=== PATIENT | female | born 1960 | race Caucasian/White ===

== ENCOUNTER 2019-01-07 10:29 | Emergency (ER) | payer OTHER ==
[2019-01-07] MEDS ORDERED: DIAZEPAM 5 MG TABLET ONE (10:57)
[2019-01-07] MEDS ORDERED: HYDROCODONE/APAP 5/325 MG TAB ONE (10:57)
--- NOTE | 2019-01-07 11:50 | ER ---
Nurse's Notes [facility] Name: Carla Harris Age: 58 yrs Sex: Female : 1960 Arrival Date: 01/07/2019 Time: 10:31 Bed 5 Private MD: Diagnosis: Vertebral Fracture Presentation: 01/07 10:40 Presenting complaint: Patient states: She fell backwards 2 nights ago and hurt her aj1 back. Reports lower back pain and pain between her shoulder blades that is worse when she changes positions. Denies numbness or tingling. Denies hitting head. Transition of care: patient was not received from another setting of care. Onset of symptoms was January 2019. Risk Assessment: Do you want to hurt yourself or someone else? Patient reports no desire to harm self or others. Initial Sepsis Screen: Does the patient meet any 2 criteria? No. Patient's initial sepsis screen is negative. Does the patient have a suspected source of infection? No. Patient's initial sepsis screen is negative. Care prior to arrival: None. 10:40 Method Of Arrival: Wheelchair aj1 10:40 Acuity: DANK 4 aj1 Triage Assessment: 10:41 General: Appears in no apparent distress. uncomfortable, Behavior is calm, cooperative, aj1 appropriate for age. Pain: Complains of pain in thoracic area and low back area Pain currently is 8 out of 10 on a pain scale. Neuro: Level of Consciousness is awake, alert, obeys commands. Cardiovascular: Patient's skin is warm and dry. Respiratory: Airway is patent Respiratory effort is even, unlabored, Respiratory pattern is regular, symmetrical. Musculoskeletal: Range of motion: intact in all extremities. Historical: - Allergies: 10:41 No Known Allergies; aj1 - Home Meds: 10:44 Albuterol Inhl [Active]; Atrovent Inhl [Active]; ipatropium bromide [Active]; symbicort tw2 [Active]; - PMHx: 10:41 COPD; aj1 - PSHx: 10:41 hip replacement; aj1 10:44 ; tw2 - Immunization history:: Flu vaccine is not up to date. - Social history:: Smoking status: Patient/guardian denies using tobacco. - Ebola Screening: : Patient denies travel to an Ebola-affected area in the 21 days before illness onset. Screenin:44 Abuse screen: Denies threats or abuse. Nutritional screening: No deficits noted. tw2 Tuberculosis screening: No symptoms or risk factors identified. Fall Risk None identified. Assessment: 11:00 General: Appears in no apparent distress. Behavior is calm, cooperative. Pain: Pain hb currently is 9 out of 10 on a pain scale. Neuro: Level of Consciousness is awake, alert, obeys commands, Oriented to person, place, time, situation. Cardiovascular: Capillary refill < 3 seconds Patient's skin is warm and dry. Respiratory: Airway is patent Respiratory effort is even, unlabored, Respiratory pattern is regular, symmetrical. GI: No signs and/or symptoms were reported involving the gastrointestinal system. : No signs and/or symptoms were reported regarding the genitourinary system. EENT: No signs and/or symptoms were reported regarding the EENT system. Derm: Skin is pink, warm \T\ dry. Musculoskeletal: Reports low back pain. 12:00 Reassessment: Patient appears in no apparent distress at this time. Patient and/or hb family updated on plan of care and expected duration. Pain level reassessed. Patient is alert, oriented x 3, equal unlabored respirations, skin warm/dry/pink. Vital Signs: 10:41 BP 130 / 62; Pulse 89; Resp 18; Temp 97.9; Pulse Ox 96% on R/A; Weight 117.93 kg (R); aj1 Height 5 ft. 1 in. (154.94 cm) (R); Pain 8/10; 12:00 BP 126 / 66; Pulse 86; Resp 15; Pulse Ox 100% on R/A; Pain 3/10; hb 10:41 Body Mass Index 49.13 (117.93 kg, 154.94 cm) aj1 ED Course: 10:31 Patient arrived in ED. as 10:41 Triage completed. aj1 10:41 Arm band placed on Patient placed in an exam room. aj1 10:43 Sammy Huerta PA is PHCP. [facility] 10:43 Johny Simms MD is Attending Physician. [facility] 10:43 Bed in low position. Call light in reach. tw2 11:00 Ade Silva, RN is Primary Nurse. 11:28 X-ray completed. Patient tolerated procedure well. Patient moved back from radiology. ml 11:29 Lumbar Spine (3 Views) XRAY In Process Unspecified. EDMS 11:49 Fidel Vivar MD is Referral Physician. [facility] 12:00 No provider procedures requiring assistance completed. Patient did not have IV access hb during this emergency room visit. Administered Medications: 10:59 Drug: [place] 5 mg-325 mg 2 tabs Route: PO; hb 12:00 Follow up: Response: No adverse reaction; Pain is decreased hb 11:00 Drug: Valium 5 mg Route: PO; hb 12:00 Follow up: Response: No adverse reaction; Pain is decreased hb Outcome: 11:50 Discharge ordered by MD. [facility] 12:00 Discharged to home via wheelchair, with family. 12:00 Condition: stable 12:00 Discharge instructions given to patient, Instructed on discharge instructions, follow up and referral plans. medication usage, Demonstrated understanding of instructions, follow-up care, medications, Prescriptions given X 1. 12:09 Patient left the ED. hb Signatures: Dispatcher [employer] EDMS Maryuri Ivan RN RN aj1 Sammy Huerta PA PA jmm Martinez, Amelia as Lopez, Melissa ml Baxter, Heather, RN RN Funmilayo Varghese RN RN tw2
--- NOTE | 2019-01-07 11:51 | EDPHYS ---
Physician Documentation [facility] Name: Carla Harris Age: 58 yrs Sex: Female : 1960 Arrival Date: 01/07/2019 Time: 10:31 Bed 5 Private MD: ED Physician Johny Simms HPI: 01/07 10:55 This 58 yrs old Female presents to ER via Wheelchair with complaints of Back jmm Pain. 10:55 The patient presents with pain that is acute. Onset: The symptoms/episode jmm began/occurred acutely, 2 day(s) ago. The pain does not radiate. Associated signs and symptoms: Pertinent negatives: abdominal pain, chest pain, dysuria, fever, hematuria, incontinence, numbness, urinary retention. The problem was sustained during a fall, while walking. Modifying factors: The patient symptoms are alleviated by nothing, the patient symptoms are aggravated by any movement. Historical: - Allergies: 10:41 No Known Allergies; aj1 - Home Meds: 10:44 Albuterol Inhl [Active]; Atrovent Inhl [Active]; ipatropium bromide [Active]; symbicort tw2 [Active]; - PMHx: 10:41 COPD; aj1 - PSHx: 10:41 hip replacement; aj1 10:44 ; tw2 - Immunization history:: Flu vaccine is not up to date. - Social history:: Smoking status: Patient/guardian denies using tobacco. - Ebola Screening: : Patient denies travel to an Ebola-affected area in the 21 days before illness onset. ROS: 10:55 Constitutional: Negative for fever, chills, and weight loss, Cardiovascular: Negative jmm for chest pain, palpitations, and edema, Respiratory: Negative for shortness of breath, cough, wheezing, and pleuritic chest pain. 10:55 Back: Positive for injury or acute deformity, pain at rest, pain with movement. 10:55 MS/extremity: Negative for pain. 10:55 All other systems are negative. Exam: 10:55 Constitutional: This is a well developed, well nourished patient who is awake, alert, jmm and in no acute distress. Head/Face: atraumatic. Eyes: EOMI, no conjunctival erythema appreciated ENT: Moist Mucus Membranes Neck: Trachea midline, Supple Chest/axilla: Normal chest wall appearance and motion. Cardiovascular: Regular rate and rhythm. No edema appreciated Respiratory: Normal respirations, no respiratory distress appreciated Abdomen/GI: Non distended, soft 10:55 Skin: General appearance color normal MS/ Extremity: Moves all extremities, no obvious deformities appreciated, no edema noted to the lower extremities Neuro: Awake and alert, normal gait Psych: Behavior is normal, Mood is normal, Patient is cooperative and pleasant 10:55 Back: vertebral tenderness, is appreciated at L1 and L2. Vital Signs: 10:41 BP 130 / 62; Pulse 89; Resp 18; Temp 97.9; Pulse Ox 96% on R/A; Weight 117.93 kg (R); aj1 Height 5 ft. 1 in. (154.94 cm) (R); Pain 8/10; 12:00 BP 126 / 66; Pulse 86; Resp 15; Pulse Ox 100% on R/A; Pain 3/10; hb 10:41 Body Mass Index 49.13 (117.93 kg, 154.94 cm) aj1 MDM: 10:47 Patient medically screened. [facility] 11:00 Data reviewed: vital signs, nurses notes. Counseling: I had a detailed discussion with [facility] the patient and/or guardian regarding:. 11:48 Data reviewed: radiologic studies, plain films. Counseling: I had a detailed discussion [facility] with the patient and/or guardian regarding: the historical points, exam findings, and any diagnostic results supporting the discharge/admit diagnosis, radiology results, the need for outpatient follow up, to return to the emergency department if symptoms worsen or persist or if there are any questions or concerns that arise at home. ED course: Decreased pain in the ED. Patient advised to follow up with pcp and spine and otherwise given strict return precautions. No bowel or bladder issues, i do not suspect cauda equina or cord compression. . 10 10:54 Order name: Lumbar Spine (3 Views) XRAY; Complete Time: 12:40 [facility] Administered Medications: 10:59 Drug: [place] 5 mg-325 mg 2 tabs Route: PO; hb 12:00 Follow up: Response: No adverse reaction; Pain is decreased hb 11:00 Drug: Valium 5 mg Route: PO; hb 12:00 Follow up: Response: No adverse reaction; Pain is decreased hb Disposition: 12:39 Co-signature as Attending Physician, Johny Simms MD. rn Disposition: 01/07/19 11:50 Discharged to Home. Impression: Vertebral Fracture. - Condition is Stable. - Discharge Instructions: Vertebral Fracture. - Prescriptions for Tylenol- Codeine #3 300-30 mg Oral Tablet - take 1 tablet by ORAL route every 6 hours As needed; 20 tablet. - Medication Reconciliation Form, Thank You Letter, Antibiotic Education, Prescription Opioid Use form. - Follow up: Fidel Vivar MD; When: 2 - 3 days; Reason: Recheck today's complaints, Continuance of care, Re-evaluation by your physician. Signatures: Dispatcher [employer] EDMaryuri Bashir RN RN aj1 Sammy Huerta PA PA jmm Nieto, Roman, MD MD rn Baxter, Heather, RN RN hb Wise, Tara, RN RN tw2 Corrections: (The following items were deleted from the chart) 12:09 11:50 01/07/2019 11:50 Discharged to Home. Impression: Vertebral Fracture. Condition is hb Stable. Forms are Medication Reconciliation Form, Thank You Letter, Antibiotic Education, Prescription Opioid Use. Follow up: Fidel Vivar; When: 2 - 3 days; Reason: Recheck today's complaints, Continuance of care, Re-evaluation by your physician. beulah
--- NOTE | 2019-01-07 12:05 | RAD REPORT ---
EXAM DESCRIPTION: RAD - Lumbar Spine 3 Views - 01/07/2019 11:32 am CLINICAL HISTORY: Back pain FINDINGS: Mild compression fracture L1 vertebral body No dislocation Osteoporosis Osteoarthritis facet joints lower lumbar spine
[2019-01-07 12:15] VITALS: TEMP 97.9
[2019-01-07 12:16] VITALS: BP 126/66; O2SAT 100
== END 2019-01-07 12:09 | disposition home or self-care (01) ==
LOC: ER 10:29
DX: S32.010A Wedge compression fracture of first lumbar vertebra, initial encounter for closed fracture (principal); J44.9 Chronic obstructive pulmonary disease, unspecified; W18.30XA Fall on same level, unspecified, initial encounter; Y93.89 Activity, other specified; Y92.9 Unspecified place or not applicable
CPT/HCPCS: 72100; 99283

== ENCOUNTER 2021-10-09 17:24 | Inpatient (IN) | payer OTHER ==
[2021-10-09 18:26] LABS: Absolute Lymphocytes (CBC) 1.3 K/uL (0.7-4.9); Hematocrit 42.2 % (36.0-45.0); Lymphocytes % 31.2 % (15.3-44.8); MCV 106.7 fL (80-100); MPV 8.1 fL (7.6-11.3); RBC Red Blood Cell Count 3.96 M/uL (3.86-4.86)
[2021-10-09 18:45] LABS: Blood Morphology Comment NOTED (NOT SEEN); Macrocytosis 1+; Platelet Estimate ADEQ; White Blood Cell Scan OK (OK)
[2021-10-09 18:49] LABS: Magnesium 1.8 mg/dL (1.8-2.4); Potassium 4.3 mmol/L (3.5-5.1); Troponin High Sensitivity 13.2 pg/mL (<58.9)
[2021-10-09] MEDS ORDERED: METHYLPREDNISOLONE 125 MG INJ ONE (18:51)
[2021-10-09] MEDS ORDERED: IPRATROPIUM BROM 0.5MG/2.5ML ONE (18:51)
[2021-10-09] MEDS ORDERED: ALBUTEROL 2.5 MG/3 ML NEB SOL ONE (18:51)
[2021-10-09] MEDS ORDERED: NA CHLORIDE 0.9% 1,000 ML ONE (19:02)
--- NOTE | 2021-10-09 19:29 | RAD REPORT ---
EXAM DESCRIPTION: Gus Single View10/09/2021 7:09 pm CLINICAL HISTORY: Shortness of breath COMPARISON: none FINDINGS: The lungs appear grossly clear. The heart is mildly to moderately enlarged.
--- NOTE | 2021-10-09 19:37 | ER ---
Nurse's Notes [facility] Name: Carla Harris Age: 61 yrs Sex: Female : 1960 Arrival Date: 10/09/2021 Time: 17:32 Bed 5 Private MD: Diagnosis: Persistent atrial fibrillation-new onset;Lymphedema, not elsewhere classified;Venous insufficiency (chronic) (peripheral);COPD/ Chronic obstructive pulmonary disease, unspecified;Morbid (severe) obesity with alveolar hypoventilation Presentation: 10/09 17:49 Chief complaint: Patient states: "Dr. Romero called and said that she has Atrial ss Fibrillation. We were seeing him initially for cellulitis.". Coronavirus screen: Client denies travel out of the [place] in the last 14 days. Ebola Screen: Patient denies exposure to infectious person. Patient denies travel to an Ebola-affected area in the 21 days before illness onset. Initial Sepsis Screen: Does the patient have a suspected source of infection? Yes: Other: possible cellulitis. Initial Sepsis Screen: Does the patient meet any 2 criteria? HR > 90 bpm. Risk Assessment: Do you want to hurt yourself or someone else? Patient reports no desire to harm self or others. Onset of symptoms is unknown. 17:49 Method Of Arrival: Wheelchair ss 17:49 Acuity: DANK 2 ss Historical: - Allergies: 17:57 No Known Allergies; ss - Home Meds: 22:12 Albuterol Inhl [Active]; Atrovent Inhl [Active]; ipatropium bromide [Active]; symbicort lp1 [Active]; - PMHx: 17:57 COPD; "pre diabetic"; ss - PSHx: 17:57 section; hip; ankle; ss - Immunization history:: Client reports receiving the 2nd dose of the Covid vaccine. - Social history:: Smoking status: Patient denies any tobacco usage or history of. Screenin:51 Abuse screen: Denies threats or abuse. Nutritional screening: No deficits noted. kr3 Tuberculosis screening: No symptoms or risk factors identified. Fall Risk IV access (20 points). Gait- Weak (10 pts.). Total Bello Fall Scale indicates Low Risk Score (25-44 pts). Fall prevention measures have been instituted. Side Rails Up X 2 Placed close to Nursing Station Frequent Obs/Assesments occuring Family Present and informed to notify staff if they need to leave bedside As available Patient and Family Educated on Fall Prevention Program and strategies. Assessment: 18:00 General: Appears distressed, uncomfortable, Behavior is cooperative, anxious. Neuro: ss Level of Consciousness is awake, alert. Derm: Skin is intact, is healthy with good turgor, Skin is pink, warm \\T\\ dry. normal. 18:52 General: Appears uncomfortable, ill, Behavior is calm, cooperative, appropriate for kr3 age. Cardiovascular: Reports fatigue, palpitations, shortness of breath, Heart tones S1 S2 Rhythm is atrial fibrillation with rapid ventricular response. Respiratory: Reports shortness of breath Airway is patent Trachea midline Respiratory effort is labored, Respiratory pattern is symmetrical, tachypnea. 19:27 Reassessment: Patient sitting at side of bed, nebulizer completed;. Pain:. Neuro: Level lp1 of Consciousness is awake, alert, obeys commands. Cardiovascular: Edema pitting to left foot and right foot. Derm: Skin is intact, Skin is dry, Skin is normal. 20:53 Reassessment: Assisted patient to bedside commode. lp1 22:00 Reassessment: Patient appears in no apparent distress at this time. Patient and/or lp1 family updated on plan of care and expected duration. Pain level reassessed. Patient aware of pending admission. Vital Signs: 17:49 Weight 131.09 kg; Height 5 ft. 1 in. (154.94 cm); Pain 0/10; ss 17:59 BP 158 / 104; Pulse 139; Resp 24; Temp 97.7(TE); Pulse Ox 87% on R/A; Weight 131.09 kg; ss Height 5 ft. 1 in. (154.94 cm); 18:50 BP 156 / 107; Pulse 106; Resp 22; Pulse Ox 99% on Nebulizer Mask; Pain 0/10; kr3 20:15 BP 156 / 99; Pulse 102; Resp 22; Pulse Ox 96% on R/A; lp1 22:04 BP 165 / 107; Pulse 106; Resp 20; Pulse Ox 95% on R/A; kd3 22:15 BP 133 / 103; Pulse 99; Resp 20; Pulse Ox 94% ; ds4 22:17 BP 151 / 99; Pulse 105; Resp 24; Temp 98.2(O); Pulse Ox 96% on 2 lpm NC; lp1 17:59 Body Mass Index 54.61 (131.09 kg, 154.94 cm) ED Course: 17:32 Patient arrived in ED. rg4 17:50 Kishore Vincent DO is Attending Physician. ms3 17:57 Triage completed. ss 17:57 Arm band placed on right wrist. ss 18:22 Inserted saline lock: 20 gauge in left antecubital area, using aseptic technique. Blood zm collected. 18:24 Basic Metabolic Panel Sent. zm 18:24 CBC with Diff Sent. zm 18:24 Magnesium Sent. zm 18:24 Troponin HS Sent. zm 18:51 Patient has correct armband on for positive identification. Bed in low position. Call kr3 light in reach. Side rails up X 1. Client placed on continuous cardiac and pulse oximetry monitoring. NIBP monitoring applied. 18:53 Rashmi Rollins, RN is Primary Nurse. kr3 19:11 XRAY Chest (1 view) In Process Unspecified. EDMS 19:18 Attending Physician role handed off by Kishore Vincent DO ms3 19:18 Boyd Larose MD is Attending Physician. ms3 19:28 No provider procedures requiring assistance completed. lp1 19:32 Yonatan Tinoco MD is Hospitalizing Provider. nirali 20:53 COVID swab sent to lab. lp1 20:59 Patient admitted, IV remains in place. lp1 Administered Medications: 18:50 Drug: Albuterol - atroVENT (ipratropium) (3:1) (2.5 mg - 0.5 mg) 3 ml Route: Nebulizer; kr3 19:30 Follow up: Response: No adverse reaction lp1 18:51 Drug: SOLU-Medrol (methylPrednisoLONE) 125 mg Route: IVP; Site: left forearm; kr3 19:30 Follow up: Response: No adverse reaction lp1 18:57 Drug: NS 0.9% 1000 ml Route: IV; Rate: 1000 ml; Site: left forearm; kr3 21:00 Drug: Lopressor (metoprolol TARTRATE) 50 mg Route: PO; lp1 22:44 Follow up: Response: No adverse reaction lp1 21:00 Drug: Digoxin 0.5 mg Route: IVP; Site: left antecubital; lp1 22:44 Follow up: Response: No adverse reaction lp1 21:00 Drug: Pepcid (famotidine) 20 mg Route: IVP; Site: left antecubital; lp1 22:44 Follow up: Response: No adverse reaction lp1 21:00 Drug: Lovenox (enoxaparin) 100 mg Route: Sub-Q; Site: left upper arm; lp1 22:44 Follow up: Response: No adverse reaction lp1 21:11 Drug: Magnesium Sulfate 1 grams Route: IVPB; Infused Over: 1 hrs; Site: left lp1 antecubital; 22:00 Follow up: IV Status: Completed infusion; IV Intake: 100ml lp1 Medication: 18:51 VIS not applicable for this client. kr3 Intake: 22:00 IV: 100ml; Total: 100ml. lp1 Outcome: 19:36 Decision to Hospitalize by Provider. [facility] 20:54 Condition: stable lp1 20:54 Instructed on the need for admit. 22:39 Admitted to Med/surg room 212, with oxygen, with chart, Report called to SALUD Levine lp1 22:44 Patient left the ED. lp1 Signatures: Dispatcher [employer] EDMS Boyd Larose MD MD cha Smirch, Shelby, RN RN ss Nieves Giron RN RN lp1 Mahin Griffith ds4 Lay Casas rg4 Kishore Vincent DO DO ms3 Shea Khan, RN RN kd3 Maia Santillan Kelley, RN RN kr3 Corrections: (The following items were deleted from the chart) 17:59 17:49 Acuity: DANK 3 ss ss 18:53 18:50 BP 156 / 107; Pulse 106bpm; Resp 22bpm; Pulse Ox 99% Nebulizer Mask; kr3 kr3
--- NOTE | 2021-10-09 19:37 | EDPHYS ---
Physician Documentation [facility] Name: Carla Harris Age: 61 yrs Sex: Female : 1960 Arrival Date: 10/09/2021 Time: 17:32 Bed 5 Private MD: ED Physician Boyd Larose HPI: 10/09 19:13 This 61 yrs old Female presents to ER via Wheelchair with complaints of A-Fib. ms3 19:13 This 61 yrs old Female presents to ER via Wheelchair with complaints of A-Fib/ SOB. ms3 19:13 The patient has shortness of breath at rest. Onset: The symptoms/episode began/occurred ms3 1 month(s) ago. Duration: The symptoms are chronic. The patient's shortness of breath has no apparent modifying factors. Associated signs and symptoms: Pertinent negatives: chest pain, non-productive cough, diaphoresis, fever, hemoptysis. Severity of symptoms: At their worst the symptoms were moderate in the emergency department the symptoms are unchanged Pain is currently a 0 / 10. 19:13 Patient states she was being seen at Dr Romero's office for leg cellulitis when it was ms3 noted she was in atrial fibrillation with RVR and instructed to go to the ER.. Historical: - Allergies: 17:57 No Known Allergies; ss - Home Meds: 22:12 Albuterol Inhl [Active]; Atrovent Inhl [Active]; ipatropium bromide [Active]; symbicort lp1 [Active]; - PMHx: 17:57 COPD; "pre diabetic"; ss - PSHx: 17:57 section; hip; ankle; ss - Immunization history:: Client reports receiving the 2nd dose of the Covid vaccine. - Social history:: Smoking status: Patient denies any tobacco usage or history of. ROS: 19:13 Constitutional: Negative for fever, and chills. ENT: Negative for injury, pain, and ms3 discharge, Neck: Negative for injury, pain, and swelling, Cardiovascular: Negative for chest pain, and palpitations. 19:13 MS/Extremity: Negative for injury and deformity, Skin: Negative for injury, rash, and discoloration, Neuro: Negative for headache, weakness, numbness, tingling. 19:13 Respiratory: Positive for shortness of breath. 19:13 All other systems are negative. Exam: 18:13 ECG was reviewed by the Attending Physician. ms3 19:13 Constitutional: This is a well developed, well nourished patient who is awake, alert, ms3 and in no acute distress. Head/Face: Normocephalic, atraumatic. Eyes: Pupils equal round and reactive to light, extra-ocular motions intact. Lids and lashes normal. Conjunctiva and sclera are non-icteric and not injected. Periorbital areas with no swelling, redness, or edema. Neck: Trachea midline, no cervical lymphadenopathy. Supple, full range of motion without nuchal rigidity, or vertebral point tenderness. No Meningismus. Chest/axilla: Normal chest wall appearance and motion. Nontender with no deformity. 19:13 MS/ Extremity: Pulses equal, no cyanosis. Neurovascular intact. Full, normal range of motion. Psych: Awake, alert, with orientation to person, place and time. Behavior, mood, and affect are within normal limits. 19:13 Cardiovascular: Rate: tachycardic, Rhythm: irregularly irregular, Pulses: no pulse deficits are appreciated. Vital Signs: 17:49 Weight 131.09 kg; Height 5 ft. 1 in. (154.94 cm); Pain 0/10; ss 17:59 BP 158 / 104; Pulse 139; Resp 24; Temp 97.7(TE); Pulse Ox 87% on R/A; Weight 131.09 kg; ss Height 5 ft. 1 in. (154.94 cm); 18:50 BP 156 / 107; Pulse 106; Resp 22; Pulse Ox 99% on Nebulizer Mask; Pain 0/10; kr3 20:15 BP 156 / 99; Pulse 102; Resp 22; Pulse Ox 96% on R/A; lp1 22:04 BP 165 / 107; Pulse 106; Resp 20; Pulse Ox 95% on R/A; kd3 22:15 BP 133 / 103; Pulse 99; Resp 20; Pulse Ox 94% ; ds4 22:17 BP 151 / 99; Pulse 105; Resp 24; Temp 98.2(O); Pulse Ox 96% on 2 lpm NC; lp1 17:59 Body Mass Index 54.61 (131.09 kg, 154.94 cm) MDM: 18:04 Patient medically screened. ms3 19:13 Differential diagnosis: Chronic Obstructive Pulmonary Disease Myocardial Infarction ms3 pneumonia, pulmonary edema. Transition of care: After a detail discussion of the patient's case, care is transferred to Boyd Larose MD. 19:37 Antibiotic administration: Not indicated. The patient's [place] Deep Vein Thrombosis nirali Score was calculated as follows: Heart Rate >100 BPM (1.5 Pts) Total Score: 0-2 Pts- Low Risk. The patient's pulmonary embolism risk score was calculated as follows: the patients heart rate is greater than 100 beats per minute (1.5 Pts) Total Score: 0-2 points. This patient was found to be at low risk for a pulmonary embolism by using the Well's assessment criteria. Immunization status: Influenza vaccine: Data reviewed: vital signs, nurses notes, lab test result(s), EKG, radiologic studies, doppler, plain films. Data interpreted: architectural designer: rate is 107 beats/min, rhythm is atrial fibrillation, Pulse oximetry: on room air is 99 %. Test interpretation: by ED physician or midlevel provider: ECG, plain radiologic studies. Counseling: I had a detailed discussion with the patient and/or guardian regarding: the historical points, exam findings, and any diagnostic results supporting the discharge/admit diagnosis, lab results, radiology results, the need for further work-up and treatment in the hospital. 10/09 18:03 Order name: Basic Metabolic Panel; Complete Time: 18:51 ms3 10/09 18:03 Order name: CBC with Diff; Complete Time: 18:51 ms3 10/09 18:03 Order name: Magnesium; Complete Time: 18:51 ms3 10/09 18:03 Order name: Troponin HS; Complete Time: 18:51 ms3 10/09 18:46 Order name: CBC Smear Scan; Complete Time: 18:51 EDMS 10/09 19:28 Order name: COVID-19 SARS RT PCR (Document "Date of Onset" if Symptomatic); Complete lp1 Time: 22:14 10/09 18:03 Order name: XRAY Chest (1 view); Complete Time: 19:36 ms3 10/09 19:30 Order name: TSH; Complete Time: 22:14 nirali 10/09 19:30 Order name: BNP; Complete Time: 22:14 nirali 10/09 19:30 Order name: US Extremity Venous W Compression Tr nirali 10/09 19:46 Order name: ABG; Complete Time: 22:14 la1 10/09 20:51 Order name: US; Complete Time: 22:14 EDMS 10/09 18:03 Order name: EKG; Complete Time: 18:04 ms3 10/09 18:03 Order name: Cardiac monitoring; Complete Time: 18:50 ms3 10/09 18:03 Order name: EKG - Nurse/Tech; Complete Time: 18:19 ms3 10/09 18:03 Order name: IV Saline Lock; Complete Time: 18:24 ms3 10/09 18:03 Order name: Labs collected and sent; Complete Time: 18:24 ms3 10/09 18:03 Order name: O2 Per Protocol; Complete Time: 18:50 ms3 10/09 18:03 Order name: O2 Sat Monitoring; Complete Time: 18:50 ms3 10/09 18:53 Order name: EKG; Complete Time: 18:54 ms3 10/09 18:57 Order name: EKG: repeat EKG; Complete Time: 18:57 kr3 10/09 18:57 Order name: EKG - Nurse/Tech; Complete Time: 19:27 kr3 EC:13 Rate is 108 beats/min. Rhythm is regular. QRS [place] is Normal. QRS interval is normal. T ms3 waves are Normal. Clinical impression: Sinus tachycardia with premature supraventricular contractions. Interpreted by me. Reviewed by me. Administered Medications: 18:50 Drug: Albuterol - atroVENT (ipratropium) (3:1) (2.5 mg - 0.5 mg) 3 ml Route: Nebulizer; kr3 19:30 Follow up: Response: No adverse reaction lp1 18:51 Drug: SOLU-Medrol (methylPrednisoLONE) 125 mg Route: IVP; Site: left forearm; kr3 19:30 Follow up: Response: No adverse reaction lp1 18:57 Drug: NS 0.9% 1000 ml Route: IV; Rate: 1000 ml; Site: left forearm; kr3 21:00 Drug: Lopressor (metoprolol TARTRATE) 50 mg Route: PO; lp1 22:44 Follow up: Response: No adverse reaction lp1 21:00 Drug: Digoxin 0.5 mg Route: IVP; Site: left antecubital; lp1 22:44 Follow up: Response: No adverse reaction lp1 21:00 Drug: Pepcid (famotidine) 20 mg Route: IVP; Site: left antecubital; lp1 22:44 Follow up: Response: No adverse reaction lp1 21:00 Drug: Lovenox (enoxaparin) 100 mg Route: Sub-Q; Site: left upper arm; lp1 22:44 Follow up: Response: No adverse reaction lp1 21:11 Drug: Magnesium Sulfate 1 grams Route: IVPB; Infused Over: 1 hrs; Site: left lp1 antecubital; 22:00 Follow up: IV Status: Completed infusion; IV Intake: 100ml lp1 Disposition Summary: 10/09/21 19:36 Hospitalization Ordered Hospitalization Status: Observation nirali Provider: Yonatan Tinoco cha Location: Telemetry/MedSurg (observation) nirali Condition: Fair nirali Problem: new nirali Symptoms: have improved nirali Bed/Room Type: Standard nirali Room Assignment: 212(10/09/21 22:00) cg Diagnosis - Persistent atrial fibrillation - new onset nirali - Lymphedema, not elsewhere classified nirali - Venous insufficiency (chronic) (peripheral) nirlai - COPD/ Chronic obstructive pulmonary disease, unspecified nirali - Morbid (severe) obesity with alveolar hypoventilation nirlai Forms: - Medication Reconciliation Form nirali - SBAR form nirali Signatures: Dispatcher [employer] EDBoyd Caputo MD MD cha Smirch, Shelby RN SALUD ss Nieves Giron RN RN lp1 Umesh Chavez, DIRECTOR DATA ARCHITECTURE-C DIRECTOR DATA ARCHITECTURE-Cla1 Viki Casas RN RN cg Sims, Marcus, DO DO ms3 Rashmi Rollins RN RN kr3 Corrections: (The following items were deleted from the chart) 22:00 19:36 nirali cg
[2021-10-09 20:05] LABS: Arterial Blood Carboxyhemoglob 1.7 % (0-1.5); Blood Gas Oxyhemoglobin 90.2 % (94-97); Blood O2 Saturation 92.8 % (92-98.5)
--- NOTE | 2021-10-09 20:29 | P.HP ---
Certification for Inpatient Patient admitted to: Inpatient With expected LOS: >2 Midnights Patient will require the following post-hospital care: None Practitioner: I am a practitioner with admitting privileges, knowledge of patient current condition, hospital course, and medical plan of care. Services: Services provided to patient in accordance with Admission requirements found in Title 42 Section 412.3 of the Code of Federal Regulations Patient History Date of Service: 10/09/21 Primary Care Provider: Dr. Romero Reason for admission: New onset A. fib, COPD exacerbation History of Present Illness: 61-year-old female with history of hypertension, hyperlipidemia, COPD, DARIO, borderline diabetes presents the emergency department for complaint of A. fib. She reports that she was going to see her primary care doctor Dr. Romero today for complaint of itching and pain in her right lower extremity it was noted that she was in A. fib with rapid ventricular response in his office and she was sent to the ER for further evaluation. Upon arrival to the emergency department patient was indeed in atrial fibrillation with rapid ventricular response she is also hypoxic on room air with a saturation of 87% her initial heart rate was 139. In the ER she received treatment for both COPD exacerbation and A. fib RVR with p.o. Lopressor, Lovenox, IV mag as well as a dose of digoxin IV. Her vital signs have improved currently A. fib rate around 105 still with some expiratory wheezing after receiving Solu-Medrol/albuterol/Atrovent. ABG revealed mild hypercapnia, hypoxia. Patient need to be admitted for new onset A. fib/COPD with exacerbation. Ultrasound bilateral lower extremities pending to rule out DVT, no obvious infection of the right lower extremity patient reports chronic swelling to lower extremities for which she is supposed to take Lasix for, she is noncompliant with most of her home medications due to cost. Allergies No Known Allergi Allergy (Uncoded 12/03/16 13:04) Unknown - Past Medical/Surgical History Diabetic: No -: COPD -: HTN -: HLD -: DARIO -: lower extremity edema -: -: hip/ankle surgery Psychosocial/ Personal History: Pt currently unemployed after a fall last year, lives with family - Family History Mother -: Cancer - Social History Smoking Status: Former smoker Alcohol use: Yes CD- Drugs: No Caffeine use: Yes Place of Residence: Home Review of Systems 10-point ROS is otherwise unremarkable Respiratory: Shortness of Breath, Wheezing Cardiovascular: Palpitations Musculoskeletal: Leg Pain, As per HPI Physical Examination - Physical Exam General: Alert, In no apparent distress, Oriented x3, Obese HEENT: Atraumatic, PERRLA, Mucous membr. moist/pink, EOMI, Sclerae nonicteric Neck: Supple, Without JVD or thyroid abnormality Respiratory: Diminished, Expiratory wheezes Cardiovascular: Normal S1 S2, Irregular heart rate/rhythm (A fib rate 105) Capillary refill: <2 Seconds Gastrointestinal: Normal bowel sounds, No tenderness Musculoskeletal: No contractures, No tenderness Integumentary: Other (Small healing wound to left lower extremity from previous injury. ) Neurological: Normal speech, Normal strength at 5/5 x4 extr, Normal tone, Normal affect, Abnormal gait (pt requires walker) - Studies Laboratory Data (last 24 hrs) 10/09/21 18:18: WBC 4.1 L, Hgb 13.9, Hct 42.2, Plt Count 180 10/09/21 18:18: Sodium 139, Potassium 4.3, BUN 18, Creatinine 0.78, Glucose 110 H, Magnesium 1.8 Assessment and Plan - Plan Assessment: New onset A. fib with rapid ventricular response Acute on chronic hypoxic/hypercapnic respiratory failure secondary to COPD with exacerbation Hypertension Hyperlipidemia Obstructive sleep apnea Chronic lower extremity edema Plan: New onset A. fib with rapid ventricular response: Patient initiated on beta- chani therapy in the emergency department, will continue with Lopressor 50 mg p.o. twice daily, Lovenox 1 mg/kg subcu twice daily, cardiology consulted echocardiogram ordered. Potassium within normal limits magnesium borderline low given 1 g in the emergency department, protocols in place. Patient poorly funded may have difficulty obtaining anticoagulation if recommended by cardiology. Rate much better controlled at this point. We will monitor on telemetry. Acute on chronic hypoxic/hypercapnic respiratory failure secondary to COPD with exacerbation: Hypoxic to 87% on room air, ABG with PCO2 51.2 patient does not use oxygen at home although she uses CPAP at night for obstructive sleep apnea she has been taking half doses of her medications including Spiriva/albuterol/Atrovent as she cannot afford her medications. We will continue with IV steroids, as needed neb treatments given her A. fib RVR, pulmonology consult in place ICS inhaler ordered. Hypertension: Continue with metoprolol, patient reportedly takes lisinopril at home does not know the dose, will restart if blood pressure tolerates and doses confirmed. Hyperlipidemia: Continue atorvastatin Obstructive sleep apnea: CPAP at night Chronic lower extremity edema: Bilateral lower extremity ultrasounds pending to rule out DVT she reports that she is supposed to be on Lasix 20 mg twice a day but is not been taking it she cannot afford her medications she reports swelling improved significantly with elevation will recommend patient elevate her extremities, echocardiogram ordered as well for evaluation of possible CHF/A. fib. Will provide with Lasix while in hospital. DVT PPX: Therapeutic Lovenox Code status: Full Discharge Plan: Home Plan to discharge in: 48 Hours - Advance Directives Does patient have a Living Will: No Does patient have a Durable POA for Healthcare: No - Code Status/Comfort Care Code Status Assessed: Yes (Full code) Critical Care: No Time Spent Managing Pts Care (In Minutes): 70
[2021-10-09] MEDS ORDERED: METOPROLOL TAR 50 MG TAB ONE (20:46)
[2021-10-09] MEDS ORDERED: DIGOXIN 0.25 MG/ML AMP ONE (20:46)
[2021-10-09] MEDS ORDERED: ENOXAPARIN 100 MG/ML SYR SQ ONE (20:47)
[2021-10-09] MEDS ORDERED: MAGNESIUM SULFATE 1 gm IVPB 1 GM/100 ML BAG IV ONE (20:47)
[2021-10-09] MEDS ORDERED: FAMOTIDINE 20 MG/2 ML VIAL IV ONE (20:47)
--- NOTE | 2021-10-09 20:51 | RAD REPORT ---
EXAM DESCRIPTION: USExtrem Venous W Compress Bil10/09/2021 8:36 pm CLINICAL HISTORY: Leg pain COMPARISON: none FINDINGS: The examination is somewhat limited secondary to body habitus and patient discomfort The common femoral, superficial femoral, popliteal veins bilaterally demonstrate phasic waveforms. Ri ght posterior tibial vein patent. Limited evaluation left posterior tibial vein Doppler demonstrates good flow. 3 centimeter left Chávez's cyst. Grayscale, color and spectral analysis performed on all vessels IMPRESSION: No evidence of deep venous thrombosis involving either lower extremity.
[2021-10-09 21:30] LABS: Thyroid Stimulating Hormone 3.1 uIU/mL (0.360-3.740)
[2021-10-09 22:54] VITALS: BMI 57.3
[2021-10-09] MEDS ORDERED: ONDANSETRON 4 MG/2 ML VIAL IV PRN (23:03)
[2021-10-09] MEDS: DULERA 200/5 (MOMETASONE/FORMOTEROL) INHALER IH SCH (23:03)
[2021-10-09] MEDS: ATORVASTATIN 40 MG TAB PO SCH (23:44)
[2021-10-09] MEDS: BENZONATATE 100 MG CAP PO PRN (23:44)
[2021-10-10] MEDS: IPRATROPIUM BROM 0.5MG/2.5ML NEB PRN ×2 (01:35→11:30)
[2021-10-10] MEDS: ALBUTEROL 2.5 MG/3 ML NEB SOL NEB PRN ×3 (01:35→19:25)
[2021-10-10] MEDS: ACETAMINOPHEN 500 MG TAB PO PRN ×3 (01:50→20:47)
[2021-10-10] MEDS ORDERED: METHYLPREDNISOLONE 40 MG INJ IV SCH (02:00)
[2021-10-10 03:55] LABS: Urine Appearance Clear (Clear); Urine Blood Trace-intact (Negative); Urine Color Yellow (Yellow); Urine Glucose 1+ (Negative); Urine Protein 2+ (Negative); Urine Specific Gravity >=1.030 (1.005-1.030); Urine Urobilinogen 0.2 mg/dL (0.2-1.0)
[2021-10-10 03:58] LABS: Urine Bilirubin NEGATIVE (Negative)
[2021-10-10 04:04] LABS: Urine Bacteria <20 /HPF (<20); Urine Mucus 1+ /HPF (NONE SEEN)
[2021-10-10 06:00] LABS: Absolute Lymphocytes (CBC) 0.3 K/uL (0.7-4.9); Hematocrit 40.7 % (36.0-45.0); Lymphocytes % 11.3 % (15.3-44.8); MCV 107.3 fL (80-100); MPV 8.5 fL (7.6-11.3); RBC Red Blood Cell Count 3.79 M/uL (3.86-4.86)
[2021-10-10 06:21] LABS: Albumin 3.7 g/dL (3.4-5.0); Bilirubin Total 0.7 mg/dL (0.2-1.0); Magnesium 1.8 mg/dL (1.8-2.4); Potassium 4.1 mmol/L (3.5-5.1); Protein, Total 7.3 g/dL (6.4-8.2)
[2021-10-10] MEDS ORDERED: MAGNESIUM SULFATE 1 gm IVPB 1 GM/100 ML BAG IV ONE (07:34)
[2021-10-10 08:33] LABS: Anisocytosis 2+; Blood Morphology Comment NOTED (NOT SEEN); Macrocytosis 2+; Platelet Estimate ADEQ; White Blood Cell Scan OK (OK)
[2021-10-10] MEDS: DULERA 200/5 (MOMETASONE/FORMOTEROL) INHALER IH SCH ×2 (09:00→20:39)
[2021-10-10] MEDS: METOPROLOL TAR 50 MG TAB PO SCH ×2 (09:25→20:40)
[2021-10-10] MEDS: FUROSEMIDE 20 MG/ 2ML VIAL IV SCH ×2 (09:26→17:46)
[2021-10-10] MEDS: acetaZOLAMIDE 250 MG TAB PO SCH (09:27)
[2021-10-10] MEDS: predniSONE 20 MG TAB PO SCH ×2 (09:40→20:41)
--- NOTE | 2021-10-10 16:29 | P.PN ---
Subjective Date of Service: 10/10/21 Primary Care Provider: Dr. Romero Chief Complaint: New onset A. fib, COPD exacerbation No new events since admission. She continues to endorse shortness of breath, which is worse with exertion. She states that her symptoms are likely exacerbated by medication noncompliance, she has been unable to afford her inhalers. I have spoken with the family preservation caseworker who will assist with providing coupons to assist her with affording her medications. Review of Systems General: Unremarkable Eyes: Unremarkable ENT: Unremarkable Respiratory: Cough, Shortness of Breath Cardiovascular: Unremarkable Gastrointestinal: Unremarkable Genitourinary: Unremarkable Musculoskeletal: Unremarkable Integumentary: Unremarkable Neurological: Unremarkable Physical Examination - Vital Signs Temperature: 97.8 F Blood Pressure: 156/84 Pulse: 88 Respirations: 20 Pulse Ox (%): 96 - Physical Exam General: Alert, In no apparent distress, Oriented x3 HEENT: Atraumatic, Mucous membr. moist/pink Neck: Supple, Other (unable to assess JVD given habitus) Respiratory: Crackles/rales (bibasilar) Cardiovascular: No gallops, No rubs, No murmurs, Edema (3+ bilateral lower extremity pitting), Irregular heart rate/rhythm Gastrointestinal: Normal bowel sounds, Soft and benign, No tenderness, No rebound, No guarding Musculoskeletal: No clubbing Integumentary: No rashes Neurological: Normal speech, Normal affect - Studies Laboratory Data (last 24 hrs) 10/09/21 18:18: WBC 4.1 L, Hgb 13.9, Hct 42.2, Plt Count 180 10/09/21 18:18: Sodium 139, Potassium 4.3, BUN 18, Creatinine 0.78, Glucose 110 H, Magnesium 1.8 Medications List Reviewed: Yes Assessment And Plan - Plan # Paroxysmal Atrial Fibrillation with Rapid Ventricular Response # Morbid Obesity - BMI 57.3 kg/m2 Differential diagnoses includes, but is not limited to, hyperthyroidism, valvular heart disease, ischemic heart disease, electrolyte derangements, medication noncompliance, increased caffeine/alcohol intake, and obstructive sleep apnea. Her [id number] = 3 (CHF=1, HTN=1, Sex=1), which warrants antico agulation. - Evaluation thus far: - HS troponin = 13.2 -> 12.5 -> 9.0 - CXR = "The lungs appear grossly clear. The heart is mildly to moderately enlarged." - Potassium = 4.1, Magnesium = 1.8 - Target K> 4, Mg >2 - TSH = 3.100 - BNP = 537 (may be falsely low/normal in obesity) - Transthoracic echocardiogram ordered - Counseled on importance of medication adherence - Currently rate-controlled on metoprolol - Continue enoxaparin - given her morbid obesity, it would seem most likely that she would require warfarin as her systemic anticoagulation as an outpatient - Cardiology consulted and spoke with Dr. Julien - recommendations appreciated # Acute on Chronic Hypoxic/Hypercapnic Respiratory Failure secondary to COPD with Exacerbation # Obstructive Sleep Apnea She endorses that her acute COPD exacerbation was likely secondary to medication noncompliance due to inability to purchase her home medications. - Spoke with case management to assist with affording her medications - Pulmonary Medicine consulted and spoke with Dr. Peralta - Recommends acetazolamide and prednisone # Acute Decompensated Congestive Heart Failure (Unknown Ejection Fraction) She presents with symptoms of shortness of breath, dyspnea on exertion, lower extremity edema, and orthopnea. On exam, she demonstrates pulmonary crackles, bilateral lower extremity edema, and jugular venous distension. - Consult Cardiology recommendations appreciated - Ordered transthoracic echocardiogram - Diuresis with IV furosemide for today - Daily weights - Strict I/O - Cardiac diet, 2 L fluid restriction, 2 g Na restriction # Hypertension - Continue metoprolol - Start lisinopril once home dose is confirmed # Hyperlipidemia - Continue atorvastatin Yonatan Tinoco MD Discharge Plan: Home Plan to discharge in: Greater than 2 days - Code Status/Comfort Care Code Status Assessed: Yes Code Status: Full Code
--- NOTE | 2021-10-10 20:19 | CON ---
Date of Consultation: 10/10/2021 Reason For Consultation: Congestive heart failure, atrial fibrillation. History Of Present Illness: This is a 61-year-old female with a history of hypertension, dyslipidemi a, COPD, diabetes, morbid obesity, came to the emergency room with palpitations, found to be in atria l fibrillation with rapid ventricular response and is found to have significant lower extremity edema . The patient claimed having shortness of breath on minimal exertion. No orthopnea. Significant ed farhan, has been going on for a long time. She denies having any chest pain. No nausea, vomiting, or d iarrhea. Past Medical History: COPD, hypertension, dyslipidemia, obesity, obstructive sleep apnea. Past Surgical History: and hip and ankle surgery. Medications: Refer to reconciliation sheet for detailed list. Allergies: NO KNOWN DRUG ALLERGIES. Family History: No premature coronary artery disease or cancer. Social History: Does not smoke at the present time, but she is a former smoker. Does not use any dr ugs. Review of Systems: All systems reviewed and they were negative except for what mentioned in HPI. Physical Examination: Vital Signs: Reviewed. Temperature is 97.8, pulse 88, breathing at 18, blood pressure 156/84, satur ating 96%. General: Pleasant young female, morbidly obese, in no apparent distress. Head and Neck: Pupils are equal, reactive to light. Intact eye movements. No JVD. No cervical lym phadenopathy. Neck: Supple. Thyroid is not enlarged. Lungs: Clear to auscultation bilaterally. No rhonchi, rales, or crackles. No accessory muscle use. Heart: Irregularly irregular. No extra sounds. Abdomen: Soft, nontender. Bowel sounds positive. No organomegaly. No masses or hernia. No rigidi ty or rebound. Extremities: No clubbing or cyanosis. Intact pulses. Skin: No rashes. Neurologic: Alert, awake, oriented x3. No acute focal deficits appreciated. Investigations: Creatinine 0.75. Troponins are negative and hemoglobin is 13.6. TSH 3.1. Chest x- ray, enlarged heart. Assessment And Recommendations: 1.Atrial fibrillation. Her rate is controlled now, but she is still in atrial fibrillation. Recomm end start sotalol 40 mg by mouth twice a day. The patient has multiple risk factors. She will requi re anticoagulation. Hence, recommend Eliquis 5 mg twice a day for stroke prevention and obtain echoc ardiogram. 2.Congestive heart failure exacerbation with significant fluid retention. Increase the Lasix to 40 mg IV q.8 hours. Carefully monitor BUN, creatinine, electrolytes, and obtain echocardiogram. 3.Hypertension. Blood pressure is elevated. Plan: As above. SR/MODL Voice ID: [id number] Report ID: [id number]
[2021-10-10] MEDS: BENZONATATE 100 MG CAP PO PRN (20:40)
[2021-10-10] MEDS: ATORVASTATIN 40 MG TAB PO SCH (20:40)
[2021-10-11 06:56] LABS: Absolute Lymphocytes (CBC) 0.5 K/uL (0.7-4.9); Hematocrit 41.9 % (36.0-45.0); Lymphocytes % 9.1 % (15.3-44.8); MCV 106.9 fL (80-100); MPV 8.7 fL (7.6-11.3); RBC Red Blood Cell Count 3.92 M/uL (3.86-4.86)
[2021-10-11 07:23] LABS: Albumin 3.9 g/dL (3.4-5.0); Bilirubin Total 0.7 mg/dL (0.2-1.0); Magnesium 2.1 mg/dL (1.8-2.4); Potassium 3.9 mmol/L (3.5-5.1); Protein, Total 7.3 g/dL (6.4-8.2)
[2021-10-11] MEDS: ALBUTEROL 2.5 MG/3 ML NEB SOL NEB PRN ×3 (07:40→23:40)
[2021-10-11] MEDS: IPRATROPIUM BROM 0.5MG/2.5ML NEB PRN ×3 (07:40→23:40)
[2021-10-11] MEDS: predniSONE 20 MG TAB PO SCH ×2 (08:59→20:51)
[2021-10-11] MEDS: acetaZOLAMIDE 250 MG TAB PO SCH (08:59)
[2021-10-11] MEDS: DULERA 200/5 (MOMETASONE/FORMOTEROL) INHALER IH SCH ×2 (09:00→20:53)
[2021-10-11] MEDS ORDERED: FUROSEMIDE 20 MG/ 2ML VIAL IV SCH (09:00)
[2021-10-11] MEDS: BENZONATATE 100 MG CAP PO PRN ×2 (09:35→17:05)
[2021-10-11] MEDS: ACETAMINOPHEN 500 MG TAB PO PRN ×2 (09:35→17:05)
[2021-10-11] MEDS: SPIRONOLACTONE 25 MG TABLET PO SCH ×2 (10:10→20:51)
[2021-10-11] MEDS: SOTALOL HCL 80 MG TAB PO SCH ×3 (10:43→18:52)
[2021-10-11] MEDS: APIXABAN 5 MG TABLET PO SCH ×2 (12:25→20:51)
--- NOTE | 2021-10-11 15:31 | P.PN ---
Subjective Date of Service: 10/11/21 Primary Care Provider: Dr. Romero Chief Complaint: New onset A. fib, COPD exacerbation No new events overnight. She appears significantly more comfortable this morning and is on room air. She reports no shortness of breath at rest, but states that it still occurs with exertion. Her primary concern this morning is her bilateral lower extremity edema, which appears to be improving with diuresis. Review of Systems General: Unremarkable Eyes: Unremarkable ENT: Unremarkable Respiratory: Shortness of Breath Cardiovascular: Edema (bilateral lower extremity) Gastrointestinal: Unremarkable Genitourinary: Unremarkable Musculoskeletal: Unremarkable Integumentary: Unremarkable Neurological: Unremarkable Physical Examination - Vital Signs Temperature: 97.6 F Blood Pressure: 149/93 Pulse: 106 Respirations: 18 Pulse Ox (%): 96 - Physical Exam General: Alert, In no apparent distress, Oriented x3 HEENT: Atraumatic, Mucous membr. moist/pink, EOMI Neck: Supple, JVD not distended (difficult to appreciate given habitus) Respiratory: Crackles/rales (bibasilar) Cardiovascular: No gallops, No rubs, No murmurs, Edema (3-4+ bilateral lower extremity pitting), Irregular heart rate/rhythm Gastrointestinal: Normal bowel sounds, Soft and benign, No tenderness, No rebound, No guarding Musculoskeletal: No clubbing Integumentary: Other (bilateral anterior corea venous stasis dermatitis) Neurological: Normal speech, Normal affect - Studies Medications List Reviewed: Yes Assessment And Plan - Plan # Paroxysmal Atrial Fibrillation with Rapid Ventricular Response # Morbid Obesity - BMI 57.3 kg/m2 Her CEC2CO3-DUDm = 3 (CHF=1, HTN=1, Sex=1), which warrants anticoagulation. - Evaluation thus far: - HS troponin = 13.2 -> 12.5 -> 9.0 - CXR = "The lungs appear grossly clear. The heart is mildly to moderately enlarged." - Potassium = 4.1, Magnesium = 1.8 - Target K> 4, Mg >2 - TSH = 3.100 - BNP = 537 (may be falsely low/normal in obesity) - Transthoracic echocardiogram ordered - Counseled on importance of medication adherence - Cardiology consulted and spoke with Dr. Julien - recommendations appreciated - Recommended sotalol, apixaban, which have been ordered # Acute on Chronic Hypoxic/Hypercapnic Respiratory Failure secondary to COPD with Exacerbation # Obstructive Sleep Apnea She endorses that her acute COPD exacerbation was likely secondary to medication noncompliance due to inability to purchase her home medications. - Spoke with case management to assist with affording her medications - Pulmonary Medicine consulted and spoke with Dr. Peralta - recommendations appreciated - Continue bronchodilator treatments - Recommends acetazolamide and prednisone # Acute Decompensated Congestive Heart Failure (Unknown Ejection Fraction) She presents with symptoms of shortness of breath, dyspnea on exertion, lower extremity edema, and orthopnea. On exam, she demonstrates pulmonary crackles, bilateral lower extremity edema, and jugular venous distension. - Consult Cardiology recommendations appreciated - Recommended IV furosemide 40 mg q8h, which has been ordered - Ordered transthoracic echocardiogram - Daily weights - Strict I/O - Cardiac diet, 2 L fluid restriction, 2 g Na restriction # Hypertension - Continue sotalol - Start lisinopril once home dose is confirmed # Hyperlipidemia - Continue atorvastatin Yonatan Tinoco MD Discharge Plan: Home Plan to discharge in: Greater than 2 days - Code Status/Comfort Care Code Status Assessed: Yes Code Status: Full Code
[2021-10-11] MEDS: FUROSEMIDE 40 MG/4 ML VIAL IV SCH (16:17)
--- NOTE | 2021-10-11 20:11 | PN ---
Date of Progress Note: 10/11/2021 Subjective: Seen by bedside. Her lower extremity edema is better. She required BiPAP at night, but she appears to be breathing comfortably today. Review of Systems: No chest pain. She has shortness of breath with minimal exertion, lower extremity edema. No orthopn ea. No nausea, vomiting, diarrhea. No abdominal pain. All other systems reviewed are negative. Physical Examination: Vital Signs: Temperature is 97.6, heart rate 106, breathing at 18, blood pressure 149/90, saturating 96%. General: Pleasant middle-aged female, morbidly obese, no apparent distress. Head and Neck: Pupils are equal, reactive to light. Intact eye movements. No cervical lymphadenopa thy. Neck: Supple. Thyroid is not enlarged. Lungs: Clear to auscultation bilaterally. No rhonchi, rales, or crackles. No accessory muscle use. Heart: Irregularly irregular. No extra sounds. Abdomen: Soft, nontender. Bowel sounds positive. No organomegaly. No masses or hernia. No rigidi ty or rebound. Extremities: 3+ pitting edema with significant movement compared to yesterday. No clubbing or cyanos is. Intact pulses. Skin: No rash. Neurologic: Alert, awake, oriented x3. No acute focal deficits appreciated. Investigations: Her BUN 17, creatinine 0.8, sodium 137. Her hemoglobin is 14, white blood count 5.9 . Assessment And Recommendation: 1.Acute on chronic congestive heart failure exacerbation. Continue aggressive diuresis for 1 more d ay on Lasix 40 mg IV q.8 hours and carefully monitor BUN, creatinine, and electrolytes, and agree wit h spironolactone. 2.Atrial fibrillation. The rate is slightly up still. Increase the sotalol to 80 mg by mouth twice a day. Do an EKG prior the dose adjustment and if the QTc interval still within normal limits, incr ease the sotalol to 80 mg twice a day and continue on Eliquis 5 mg twice a day. SR/MODL Voice ID: [id number] Report ID: [id number]
[2021-10-11] MEDS: ATORVASTATIN 40 MG TAB PO SCH (20:51)
[2021-10-12] MEDS: FUROSEMIDE 40 MG/4 ML VIAL IV SCH ×3 (02:13→16:16)
[2021-10-12 06:18] LABS: Absolute Lymphocytes (CBC) 0.8 K/uL (0.7-4.9); Hematocrit 42.9 % (36.0-45.0); MCV 104.3 fL (80-100); MPV 8.4 fL (7.6-11.3); RBC Red Blood Cell Count 4.12 M/uL (3.86-4.86)
[2021-10-12 06:37] LABS: Bilirubin Total 0.7 mg/dL (0.2-1.0); Magnesium 1.9 mg/dL (1.8-2.4); Potassium 3.7 mmol/L (3.5-5.1); Protein, Total 7.2 g/dL (6.4-8.2)
[2021-10-12] MEDS: SOTALOL HCL 80 MG TAB PO SCH ×2 (06:48→17:12)
[2021-10-12] MEDS: ACETAMINOPHEN 500 MG TAB PO PRN ×2 (06:52→22:00)
[2021-10-12] MEDS: BENZONATATE 100 MG CAP PO PRN ×2 (06:53→22:00)
[2021-10-12] MEDS: IPRATROPIUM BROM 0.5MG/2.5ML NEB PRN ×3 (07:39→20:40)
[2021-10-12] MEDS: ALBUTEROL 2.5 MG/3 ML NEB SOL NEB PRN ×3 (07:39→20:40)
[2021-10-12] MEDS: APIXABAN 5 MG TABLET PO SCH ×2 (08:21→22:00)
[2021-10-12] MEDS: SPIRONOLACTONE 25 MG TABLET PO SCH (08:21)
[2021-10-12] MEDS: predniSONE 20 MG TAB PO SCH ×2 (08:21→22:00)
[2021-10-12] MEDS: acetaZOLAMIDE 250 MG TAB PO SCH (08:22)
[2021-10-12] MEDS: DULERA 200/5 (MOMETASONE/FORMOTEROL) INHALER IH SCH ×2 (08:22→22:00)
--- NOTE | 2021-10-12 15:05 | P.PN ---
Subjective Date of Service: 10/12/21 Primary Care Provider: Dr. Romero Chief Complaint: New onset A. fib, COPD exacerbation No new events overnight. She appears comfortable this morning and is sitting upright eating breakfast. She reports no shortness of breath at rest, but states that it still occurs with exertion. Her bilateral lower extremity edema appears to be improving with diuresis. Review of Systems General: Unremarkable Eyes: Unremarkable ENT: Unremarkable Respiratory: SOB with Excertion Cardiovascular: Unremarkable Gastrointestinal: Unremarkable Genitourinary: Unremarkable Musculoskeletal: Pedal edema Integumentary: Unremarkable Neurological: Unremarkable Physical Examination - Vital Signs Temperature: 96.8 F Blood Pressure: 118/87 Pulse: 56 Respirations: 16 Pulse Ox (%): 93 - Physical Exam General: Alert, In no apparent distress, Oriented x3 HEENT: Atraumatic, Mucous membr. moist/pink, EOMI, Sclerae nonicteric Neck: Supple, JVD not distended (difficult to assess given habitus) Respiratory: Diminished, Crackles/rales (faint bibasilar) Cardiovascular: Regular rate/rhythm, Normal S1 S2, No gallops, No rubs, No murmurs, Edema (2-3+ bilateral lower extremity pitting) Gastrointestinal: Normal bowel sounds, No tenderness, No rebound, No guarding Musculoskeletal: No clubbing Integumentary: No rashes Neurological: Normal speech, Normal affect - Studies Medications List Reviewed: Yes Assessment And Plan - Plan # Paroxysmal Atrial Fibrillation with Rapid Ventricular Response, rate- controlled now # Morbid Obesity - BMI 57.3 kg/m2 Her [id number] = 3 (CHF=1, HTN=1, Sex=1), which warrants anticoagulation. - Evaluation thus far: - HS troponin = 13.2 -> 12.5 -> 9.0 - CXR = "The lungs appear grossly clear. The heart is mildly to moderately enlarged." - Potassium = 4.1, Magnesium = 1.8 - Target K> 4, Mg >2 - TSH = 3.100 - BNP = 537 (may be falsely low/normal in obesity) - Transthoracic echocardiogram ordered - Counseled on importance of medication adherence - Cardiology consulted and spoke with Dr. Julien - recommendations appreciated - Recommended sotalol, apixaban, which have been ordered - Net I/O not charted # Acute on Chronic Hypoxic/Hypercapnic Respiratory Failure secondary to COPD with Exacerbation, improving # Obstructive Sleep Apnea She endorses that her acute COPD exacerbation was likely secondary to medication noncompliance due to inability to purchase her home medications. - Spoke with case management to assist with affording her medications - Pulmonary Medicine consulted and spoke with Dr. Peralta - recommendations appreciated - Continue bronchodilator treatments - Recommends acetazolamide and prednisone # Acute Decompensated Congestive Heart Failure (Unknown Ejection Fraction), improving - Consult Cardiology recommendations appreciated - Recommended IV furosemide 40 mg q8h, which has been ordered - Ordered transthoracic echocardiogram - Daily weights - Strict I/O - Cardiac diet, 2 L fluid restriction, 2 g Na restriction # Hypertension - Continue sotalol - Start lisinopril once home dose is confirmed # Hyperlipidemia - Continue atorvastatin Yonatan Tinoco MD
--- NOTE | 2021-10-12 20:17 | PN ---
Date of Progress Note: 10/12/2021 Subjective: Seen by bedside. She is looking much better. Breathing comfortably. Does not have any major shortness of breath on exertion. Lower extremity edema is much better. No nausea, vomiting, diarrhea. No abdominal pain. All other systems reviewed and they are negative. Physical Examination: Vital Signs: Reviewed. Head and Neck: Pupils are equal, reactive to light. Intact eye movements. No JVD. No cervical lym phadenopathy. Neck is supple. Thyroid is not enlarged. Lungs: Clear to auscultation bilaterally. No rhonchi, wheezing, or crackles. No accessory muscle u se. Heart: Irregularly irregular. No extra sounds. Abdomen: Soft, nontender. Bowel sounds positive. No organomegaly. No masses or hernia. No rigidi ty or rebound. Extremities: No clubbing or cyanosis. Intact pulses. Skin: No rash. Neurologic: Alert, awake, oriented x3. No acute focal deficits appreciated. Lymph Nodes: No cervical or axillary lymphadenopathy. Investigations: Creatinine 0.84, BUN 17, and hemoglobin is 14.6. Assessment And Recommendations: 1.Acute on chronic congestive heart failure exacerbation. Continue IV Lasix for 1 more day. She is getting euvolemic slowly. Continue spironolactone, low-salt diet, and daily body weight. 2.Atrial fibrillation. Still in atrial fibrillation. Continue sotalol and apixaban. SR/MODL Voice ID: [id number] Report ID: [id number]
[2021-10-12] MEDS: ATORVASTATIN 40 MG TAB PO SCH (22:00)
[2021-10-13] MEDS: FUROSEMIDE 40 MG/4 ML VIAL IV SCH ×2 (02:02→09:23)
[2021-10-13] MEDS: SPIRONOLACTONE 25 MG TABLET PO SCH ×3 (02:17→20:43)
[2021-10-13 03:53] LABS: Hematocrit 47.2 % (36.0-45.0); MCV 104.8 fL (80-100); MPV 8.6 fL (7.6-11.3)
[2021-10-13 04:14] LABS: Bilirubin Total 0.7 mg/dL (0.2-1.0); Potassium 3.6 mmol/L (3.5-5.1); Protein, Total 7.7 g/dL (6.4-8.2)
[2021-10-13] MEDS: SOTALOL HCL 80 MG TAB PO SCH ×2 (06:20→18:11)
--- NOTE | 2021-10-13 07:22 | ECHO ---
HEIGHT: 5 ft 1 in WEIGHT: 303 lb 8 oz DATE OF STUDY: 10/10/[address]: Umesh Chavez NP 2-DIMENSIONAL: YES M.MODE: YES DOPPLER: YES COLOR FLOW: YES TDS: YES PORTABLE: YES DEFINITY: NO BUBBLE STUDY: NO DIAGNOSIS: NEW ATRIAL ENLARGEMENT CARDIAC HISTORY: CATHERIZATION: SURGERY: PROSTHETIC VALVE: PACEMAKER: MEASUREMENTS (cm) DIASTOLIC (NORMALS) SYSTOLIC (NORMALS) IVSd 1.4 (0.6-1.2) LA Diam 4.4 (1.9-4.0) LVEF 64% LVIDd 3.9 (3.5-5.7) LVIDs 2.6 (2.0-3.5) %FS 34% LVPWd 1.4 (0.6-1.2) Ao Diam 2.7 (2.0-3.7) 2 DIMENSIONAL ASSESSMENT: RIGHT ATRIUM: NORMAL LEFT ATRIUM: ENLARGED RIGHT VENTRICLE: NORMAL LEFT VENTRICLE: NORMAL TRICUSPID VALVE: NORMAL MITRAL VALVE: NORMAL PULMONIC VALVE: NORMAL AORTIC VALVE: NORMAL PERICARDIAL EFFUSION: TRACE AORTIC ROOT: NORMAL LEFT VENTRICULAR WALL MOTION: UNABLE TO EVALUATE DUE TO POOR WINDOWS. DOPPLER/COLOR FLOW: MILD TRICUSPID REGURGITATION. COMMENTS: POOR WINDOWS, LEFT VENTRICULAR EJECTION FRACTION APPEARS NORMAL. LEFT ATRIAL ENLARGEMENT. TECHNOLOGIST: Charmaine DUENAS
[2021-10-13] MEDS: ALBUTEROL 2.5 MG/3 ML NEB SOL NEB PRN ×2 (09:00→20:25)
[2021-10-13] MEDS: IPRATROPIUM BROM 0.5MG/2.5ML NEB PRN ×2 (09:00→20:25)
[2021-10-13] MEDS: predniSONE 20 MG TAB PO SCH ×2 (09:22→20:43)
[2021-10-13] MEDS: acetaZOLAMIDE 250 MG TAB PO SCH (09:23)
[2021-10-13] MEDS: APIXABAN 5 MG TABLET PO SCH ×2 (09:23→20:42)
[2021-10-13] MEDS: DULERA 200/5 (MOMETASONE/FORMOTEROL) INHALER IH SCH ×2 (09:24→20:42)
[2021-10-13] MEDS: ACETAMINOPHEN 500 MG TAB PO PRN ×2 (09:32→20:47)
[2021-10-13] MEDS: BENZONATATE 100 MG CAP PO PRN ×2 (09:32→20:47)
--- NOTE | 2021-10-13 13:59 | EKG ---
Test Date: 2021-10-09 Test Time: 19:24:15 Senior Tax Specialist: ELAYNE MEASUREMENT RESULTS: Intervals: Rate: 113 [place]: QRSD: 74 QT: 298 QTc: 408 [place]: P: -90 IL: QRS: 51 T: 54 INTERPRETIVE STATEMENTS: Atrial flutter with variable AV block Low voltage QRS Cannot rule out Anterior infarct, age undetermined Abnormal ECG Compared to ECG 10/09/2021 18:13:41 Sinus tachycardia no longer present Atrial premature complex(es) no longer present First degree AV block no longer present Right-axis deviation no longer present Myocardial infarct finding still present Electronically Signed On 10-13-21 13:51:51 CDT by Vladimir Julien
--- NOTE | 2021-10-13 14:00 | EKG ---
Test Date: 2021-10-09 Test Time: 18:13:41 Client Experience Consultant: DOMINGA MEASUREMENT RESULTS: Intervals: Rate: 108 SC: 262 QRSD: 54 QT: 352 QTc: 471 [place]: P: SC: 262 QRS: 107 T: 100 INTERPRETIVE STATEMENTS: Sinus tachycardia with 1st degree AV block with premature supraventricular complexes Rightward axis Low voltage QRS Cannot rule out Anteroseptal infarct, age undetermined Abnormal ECG Compared to ECG 09/14/2014 14:32:38 Atrial premature complex(es) now present First degree AV block now present Right-axis deviation now present Low QRS voltage now present Myocardial infarct finding now present Sinus rhythm no longer present Electronically Signed On 10-13-21 13:52:06 CDT by Vladimir Julien
[2021-10-13] MEDS: FUROSEMIDE 40 MG TABLET PO SCH (18:10)
--- NOTE | 2021-10-13 18:57 | PN ---
Date of Progress Note: 10/13/2021 Subjective: Seen by bedside. Doing clinically better. Still has shortness of breath on exertion an d residual lower extremity edema. Review of Systems: No chest pain, shortness of breath, orthopnea, cough, nausea, vomiting, diarrhea. All other systems reviewed and are negative. Physical Examination: Vital Signs: Reviewed. Head and Neck: Pupils are equal, reactive to light. Intact eye movements. No JVD. No cervical lym phadenopathy. Neck is supple. Thyroid is not enlarged. Lungs: Clear to auscultation bilaterally. No rhonchi, wheezing, or crackles. No accessory muscle u se. Heart: Irregularly irregular. No extra sounds. Abdomen: Soft, nontender. Bowel sounds positive. No organomegaly. No masses or hernia. No rigidi ty or rebound. Extremities: No clubbing or cyanosis. Intact pulses. Skin: No rash. Neurologic: Alert, awake. No acute focal deficits appreciated. Lymph Nodes: No cervical or axillary lymphadenopathy. Investigations: Labs were reviewed. Assessment And Recommendations: 1.Acute on chronic congestive heart failure exacerbation. She is definitely improving. Continue cu rrent diuretics. However, we will change to oral Lasix 40 mg by mouth twice a day. Please obtain ec hocardiogram to further assess. 2.Atrial fibrillation. The sotalol was increased to 80 mg twice a day and she still has a fast hear t rate. We can use metoprolol 5 mg IV every 2-3 hours as needed for the rate control and if her ejection fraction is normal, then we will start on calcium channel chani with Cardizem for a better heart rate control. SR/MODL Voice ID: [id number] Report ID: [id number]
[2021-10-13] MEDS: ATORVASTATIN 40 MG TAB PO SCH (20:43)
[2021-10-14] MEDS: SOTALOL HCL 80 MG TAB PO SCH (05:13)
[2021-10-14 05:51] LABS: Hematocrit 46.6 % (36.0-45.0); Lymphocytes % 14.9 % (15.3-44.8); MCV 106.5 fL (80-100); MPV 8.5 fL (7.6-11.3); RBC Red Blood Cell Count 4.37 M/uL (3.86-4.86)
[2021-10-14 06:11] LABS: Potassium 3.7 mmol/L (3.5-5.1)
[2021-10-14 06:51] LABS: Blood Morphology Comment NOTED (NOT SEEN); Macrocytosis 1+; Platelet Estimate ADEQ; White Blood Cell Scan OK (OK)
[2021-10-14 08:20] VITALS: BP 124/71; TEMP 97.1
--- NOTE | 2021-10-14 08:21 | RAD REPORT ---
EXAM DESCRIPTION: Gus Single View10/14/2021 5:25 am CLINICAL HISTORY: Cough COMPARISON: October 09, 2021 FINDINGS: The upper lobe vessels are prominent indicative of pulmonary venous hypertension. The lungs appear clear of acute infiltrate. The heart is mildly to moderately enlarged
[2021-10-14] MEDS ORDERED: POTASSIUM CL SA 10 MEQ TAB PO ONE (09:00)
[2021-10-14] MEDS: SPIRONOLACTONE 25 MG TABLET PO SCH (09:06)
[2021-10-14] MEDS: ACETAMINOPHEN 500 MG TAB PO PRN (09:06)
[2021-10-14] MEDS: FUROSEMIDE 40 MG TABLET PO SCH (09:06)
[2021-10-14] MEDS: acetaZOLAMIDE 250 MG TAB PO SCH (09:07)
[2021-10-14] MEDS: DULERA 200/5 (MOMETASONE/FORMOTEROL) INHALER IH SCH (09:07)
[2021-10-14] MEDS: APIXABAN 5 MG TABLET PO SCH (09:07)
[2021-10-14] MEDS: predniSONE 20 MG TAB PO SCH (09:07)
[2021-10-14] MEDS: BENZONATATE 100 MG CAP PO PRN (09:07)
[2021-10-14] MEDS: IPRATROPIUM BROM 0.5MG/2.5ML NEB PRN (10:13)
[2021-10-14 10:54] VITALS: O2SAT 93
--- NOTE | 2021-10-16 10:53 | P.PN ---
Date of Service: 10/13/21 Subjective Patient respiratory status has been stable. Clinically she is feeling much better. Spoke with patient about nutritional habits going forward. Heart rate is well controlled. Anticipate discharge home later today. Physical Examination - Vital Signs Reviewed - Physical Exam General: Alert, In no apparent distress, Oriented x3 HEENT: Atraumatic, Mucous membr. moist/pink, EOMI, Sclerae nonicteric Neck: Supple, JVD not distended (difficult to assess given habitus) Respiratory: Diminished, Crackles/rales (faint bibasilar) Cardiovascular: Regular rate/rhythm, Normal S1 S2, No gallops, No rubs, No murmurs, Edema (2-3+ bilateral lower extremity pitting) Gastrointestinal: Normal bowel sounds, No tenderness, No rebound, No guarding Musculoskeletal: No clubbing Integumentary: No rashes Neurological: Normal speech, Normal affect Assessment And Plan -Assessment # Paroxysmal Atrial Fibrillation with Rapid Ventricular Response, rate-contr olled now # Morbid Obesity - BMI 57.3 kg/m2 # Acute on Chronic Hypoxic/Hypercapnic Respiratory Failure secondary to COPD with Exacerbation, improving # Obstructive Sleep Apnea # Acute Decompensated Congestive Heart Failure (Unknown Ejection Fraction), improving # Hypertension # Hyperlipidemia -Plan 1. Continue medication for rate control; continue anticoagulation 2. Continue with BiPAP at night and acetazolamide 3. Continue with diuresing 4. Strict blood pressure and blood sugar control 5. GI DVT prophylaxis
--- NOTE | 2021-10-16 10:55 | P.DS ---
Discharge Date: 10/14/21 Primary Care Provider: Dr. Romero Disposition: ROUTINE DISCHARGE Discharge Condition: GOOD Reason for Admission: New onset A. fib, COPD exacerbation Brief History of Present Illness: 61-year-old female with history of hypertension, hyperlipidemia, COPD, DARIO, borderline diabetes presents the emergency department for complaint of A. fib. She reports that she was going to see her primary care doctor Dr. Romero today for complaint of itching and pain in her right lower extremity it was noted that she was in A. fib with rapid ventricular response in his office and she was sent to the ER for further evaluation. Upon arrival to the emergency department patient was indeed in atrial fibrillation with rapid ventricular response she is also hypoxic on room air with a saturation of 87% her initial heart rate was 139. In the ER she received treatment for both COPD exacerbation and A. fib RVR with p.o. Lopressor, Lovenox, IV mag as well as a dose of digoxin IV. Her vital signs have improved currently A. fib rate around 105 still with some expiratory wheezing after receiving Solu-Medrol/albuterol/Atrovent. ABG revealed mild hypercapnia, hypoxia. Patient need to be admitted for new onset A. fib/COPD with exacerbation. Ultrasound bilateral lower extremities pending to rule out DVT, no obvious infection of the right lower extremity patient reports chronic swelling to lower extremities for which she is supposed to take Lasix for, she is noncompliant with most of her home medications due to cost. Hospital Course: Patient is clinically improved. Patient is doing much better. Respiratory status has improved. Continue with medication for rate control and anticoagulation. She will need to continue following up with pulmonary and cardiology as an outpatient. She will have obesity hypoventilation syndrome along with diastolic heart failure. She will need close follow-up going forward for her COPD as well. At this time, patient stable for discharge home. Vital Signs/Physical Exam: Temp Pulse Resp BP Pulse Ox 97.1 F 61 16 124/71 91 10/14/21 08:00 10/14/21 09:06 10/14/21 08:00 10/14/21 09:06 10/14/21 08:00 General: Alert, In no apparent distress, Oriented x3 Laboratory Data at Discharge: WBC 6.4 K/uL (4.3-10.9) D 10/14/21 05:35 Hgb 15.6 g/dL (12.0-15.0) H 10/14/21 05:35 Hct 46.6 % (36.0-45.0) H 10/14/21 05:35 Plt Count 254 K/uL (152-406) 10/14/21 05:35 Sodium 138 mmol/L (136-145) 10/14/21 05:35 Potassium 3.7 mmol/L (3.5-5.1) 10/14/21 05:35 BUN 34 mg/dL (7-18) H 10/14/21 05:35 Creatinine 0.98 mg/dL (0.55-1.3) 10/14/21 05:35 Glucose 194 mg/dL (74-106) H 10/14/21 05:35 Magnesium 1.9 mg/dL (1.8-2.4) 10/12/21 05:49 Total Bilirubin 0.7 mg/dL (0.2-1.0) 10/13/21 03:15 AST 95 U/L (15-37) H 10/13/21 03:15 ALT 115 U/L (12-78) H 10/13/21 03:15 Alkaline Phosphatase 56 U/L (45-117) 10/13/21 03:15 Triglycerides 91 mg/dL (<150) 10/10/21 05:20 Cholesterol 207 mg/dL (<200) H 10/10/21 05:20 HDL Cholesterol 133 mg/dL (40-60) H 10/10/21 05:20 Cholesterol/HDL Ratio 1.56 10/10/21 05:20 Home Medications: Albuterol Neb [Proventil 0.083% Neb Soln] 3 ml IH PRN PRN 10/09/21 Acetaminophen [Tylenol Extra Strength] 500 mg PO PRN 10/10/21 Amlodipine [Norvasc*] 10 mg PO DAILY 10/10/21 Furosemide 40 mg PO DAILY 10/10/21 Albuterol Neb [Proventil 0.083% Neb Soln] 2.5 mg NEB [id number] PRN #60 amp 10/13/21 Apixaban [Eliquis] 5 mg PO BID #60 tablet 10/13/21 Atorvastatin Calcium [Lipitor] 40 mg PO BEDTIME #30 tab 10/13/21 Benzonatate [Tessalon Perle*] 100 mg PO TID PRN #30 cap 10/13/21 Ipratropium Neb [Atrovent*] 0.5 mg NEB [id number] PRN #60 amp 10/13/21 Mometasone/Formoterol [Dulera 200 Mcg/5 Mcg Inhaler] 2 puff IH BID #1 inhaler 10/13/21 Sotalol HCl [Betapace*] 80 mg PO BID 6AM 6PM #60 tab 10/13/21 Spironolactone [Aldactone*] 25 mg PO BID #60 tab 10/13/21 acetaZOLAMIDE [Diamox*] 250 mg PO DAILY #30 tab 10/13/21 predniSONE [Prednisone*] 20 mg PO BID #20 tab 10/13/21 Budesonide/Formoterol Fumarate [Symbicort 160-4.5 Mcg Inhaler] 1 puff IH BID #1 hfa.aer.ad 10/14/21 New Medications: Spironolactone [Aldactone*] 25 mg PO BID #60 tab Ipratropium Neb [Atrovent*] 0.5 mg NEB [id number] PRN #60 amp PRN Reason: Wheezing Sotalol HCl [Betapace*] 80 mg PO BID 6AM 6PM #60 tab acetaZOLAMIDE [Diamox*] 250 mg PO DAILY #30 tab Mometasone/Formoterol [Dulera 200 Mcg/5 Mcg Inhaler] 2 puff IH BID #1 inhaler Apixaban [Eliquis] 5 mg PO BID #60 tablet Atorvastatin Calcium [Lipitor] 40 mg PO BEDTIME #30 tab predniSONE [Prednisone*] 20 mg PO BID #20 tab Albuterol Neb [Proventil 0.083% Neb Soln] 2.5 mg NEB [id number] PRN #60 amp PRN Reason: Shortness Of Breath Budesonide/Formoterol Fumarate [Symbicort 160-4.5 Mcg Inhaler] 1 puff IH BID #1 hfa.aer.ad Benzonatate [Tessalon Perle*] 100 mg PO TID PRN #30 cap PRN Reason: Cough Physician Discharge Instructions: -DC IV and DC home -Follow-up with PCP in 1 to 2 weeks -Follow-up with Cardiology and Pulmonary in 1 to 2 weeks -Please call Dr. Lenz at [phone] if any questions regarding hospital stay -Please call nursing station at [phone] if any nursing or medication questions -Return to the emergency room if symptoms worsen Diet: AHA Activity: Fall precautions Followup: Gutierrez Romero MD [Primary Care Provider] - Time spent managing pt's care (in minutes): 35
--- OUTSIDE RECORDS SUMMARY | 2021-10-22 17:21 | XMS REPORT | Continuity of Care Document ---
:1960 Author Organization [facility] t Address [address] [place] [address] Care Team Providers Name Role Phone Unavailable Unavailable Unavailable Payers Payer Name Policy Type Policy Number Effective Date Expiration Date S ource Problems This patient has no known problems. Allergies, Adverse Reactions, Alerts Allergy Allergy Status Severity Reaction(s) Onset Inactive Treating Comm ents Source Name Type Date Date Clinician No Known DA Active U 2019-0 [facility] 4[facility] [place] [facility] No Known DA Active U 2018-0 [facility] [place] Medications This patient has no known medications. Procedures This patient has no known procedures. Results Test Description Test Time Test Comments Results Result Comments Source BASIC METABOLIC PANEL 2018-07-15 07:47:00 Test Item Value Reference Range Interpretation Comme nts SODIUM (test code = NA) 139 mmol/L 136-145 N POTASSIUM (test code = K) 4.7 mmol/L 3.5-5.1 N CHLORIDE (test code = CL) 100.0 mmol/L 98-107 N CARBON DIOXIDE (test code = 29.5 mmol/L 21-32 N CO2) GLUCOSE (test code = GLU) 203 mg/dL 70-110 H BLOOD UREA NITROGEN (test code 15 mg/dL 7-18 N = BUN) GLOMERULAR FILTRATION RATE 68.5 >60 U nit of measure: (test code = GFR) mL/min/1.7 3 [id number] Range:Healthy A dults >90 mL/min/1.73 m2 For Chronic Kidney Disease: Stage II Mi ld Decrease in GFR 60-9 0 Stage III Moderate Decrease in GFR 30-59 Stage IV Severe Decrease in GFR 15-29 Stage V Kidney Failure <15 CREATININE (test code = CREAT) 0.85 mg/dL 0.55-1.30 N CALCIUM (test code = CA) 8.8 mg/dL 8.2-10.1 N - XR PELVIS 1/2 [id number] 07:17:00 Patient Name: LORAINE CHUN Unit No: [id number] EXAMS: CPT CODE: [id number] XR PELVIS 1/2 VIEWS 97190 INTRAOPERATIVE LEG LENGTH FILM COMMENT: COMPARISON: Noprior exams available. In progress right hip replacement is noted. AP PORTABLE RIGHT HIP COMMENT: The patient is status post joint replacement which is articulating normally. at 0705 Reported and signed by: Kelby Fierro MD CC: Gordon Benitez Technologist: ARABELLA PARK RT(R) Transcribed D/ (0717) tMARC.MARCO ANTONIO [facility] NAME: LORAINE CHUN [address] [place] [address] PHYS: Gordon Hayes : 1960 AGE: 57 SEX: F [place] [address] LOC: Y.322 A PHONE #: [phone] EXAM DATE: 07/14/2018 STATUS: ADM IN FAX #: [phone] RAD #: D/C DT PAGE 1 Signed Report Patient Name: LORAINE CHUN Unit No: [id number] EXAMS: CPTCODE: [id number] XR PELVIS 1/2 VIEWS 57431 <Continued> Orig Print D/T: S: 07/15/2018 (1027) [facility] NAME: LORAINE CHUN [address] [place] [address] PHYS: Gordon Hayes : 1960 AGE: 57 SEX: F [place] [address] LOC: Y.322 A PHONE #: [phone] EXAM DATE: 07/14/2018 STATUS: ADM IN FAX #: [phone] RAD #: D/C DT PAGE 2 Signed Report- XR PELVIS 1/2 [id number] 07:17:00 Patient Name: LORAINE CHUN Unit No: [id number] EXAMS: CPT CODE: [id number] XR PELVIS 1/2 VIEWS 22908 INTRAOPERATIVE LEG LENGTH FILM COMMENT: COMPARISON: Noprior exams available. In progress right hip replacement is noted. AP PORTABLE RIGHT HIP COMMENT: The patient is status post joint replacement which is articulating normally. at 0717 Reported and signed by: Kelby Fierro MD CC: Gordon Benitez Technologist: ARABELLA PARK RT(R) Transcribed D/ (0717) t.ROSYR.JCL [facility] NAME: LORAINE CHUN [address] [place] [address] PHYS: Gordon Hayes : 1960 AGE: 57 SEX: F [place] [address] LOC: Y.322 A PHONE #: [phone] EXAM DATE: 07/14/2018 STATUS: ADM IN FAX #: [phone] RAD #: D/C DT PAGE 1 Signed Report Patient Name: LORAINE CHUN Unit No: [id number] EXAMS: CPTCODE: [id number] XR PELVIS 1/2 VIEWS 95540 <Continued> Orig Print D/T: S: 07/15/2018 (1027) [facility] NAME: LORAINE CHUN [address] [place] [address] PHYS: Gordon Hayes : 1960 AGE: 57 SEX: F [place], [place] [address] LOC: Y.322 A PHONE #: [phone] EXAM DATE: 07/14/2018 STATUS: ADM IN FAX #: [phone] RAD #: D/C DT PAGE 2 Signed ReportB [id number] 05:53:00 Test Item Value Reference Range Interpretation Comments HEMOGLOBIN (test code = HGB) 13.3 g/dL 12-16 N HEMATOCRIT (test code = HCT) 39.8 % 37-47 N AB HIV 20:55:00 Test Item Value Reference Range Interpretation Comments AB HIV 1 (test code NONREACTIVE NONREACTIVE DONE AT: [facility] = HIV1AB) [place] [id number] [place], [place] [address]Done by [employer] 4th Gen HIV Ag/Ab C ombo Screen AB HIV 1 20:55:00 Test Item Value Reference Range Interpretation Comments AB HIV 1 2 (test NONREACTIVE NONREACTIVE Done by S [employer] code = [id number]) 4th Gen HIV Ag/Ab Combo Screen COMPREHENSIVE METABOLIC [id number] 18:08:00 Test Item Value Reference Range Interpretation Comments SODIUM (test code = NA) 141 mmol/L 136-145 N POTASSIUM (test code = 3.7 mmol/L 3.5-5.1 N K) CHLORIDE (test code = 96.0 mmol/L 98-107 L CL) CARBON DIOXIDE (test 33.1 mmol/L 21-32 H code = CO2) GLUCOSE (test code = 88 mg/dL 70-110 N GLU) BLOOD UREA NITROGEN 16 mg/dL 7-18 N (test code = BUN) GLOMERULAR FILTRATION 88.6 >60 Unit o f measure: RATE (test code = GFR) mL/mi n/1.73 [id number] Range:Healthy Adults >90 mL/min/1.73 m2 For Chronic Kidney Disease: St age II Mild Decrease in GFR 60-90 St age III Moderate Decrease in GFR 30-59 Stage IV Severe Decre ase in GFR 15- 29 Stage V Kidney Failure <15 CREATININE (test code = 0.68 mg/dL 0.55-1.30 N CREAT) TOTAL PROTEIN (test 6.9 g/dL 6.4-8.2 N code = PROT) ALBUMIN (test code = 4.3 g/dL 3.4-5.0 N ALB) GLOBULIN (test code = 2.6 g/dL 2.2-4.2 N GLOB) ALBUMIN/GLOBULIN RATIO 1.7 0.7-2.0 N (test code = A/G) CALCIUM (test code = 9.6 mg/dL 8.2-10.1 N CA) BILIRUBIN TOTAL (test 0.75 mg/dL 0.2-1.00 N code = BILT) SGOT/AST (test code = 73.0 U/L 15-37 H AST) SGPT/ALT (test code = 54.0 U/L 12-78 N Please note new ALT) normal range. ALKALINE PHOSPHATASE 68 U/L 46-116 N TOTAL (test code = ALKP) PROTHROMBIN [id number] 17:53:00 Test Item Value Reference Range Interpretation Comments PROTHROMBIN TIME 10.8 secs 10.1-12.5 N PATIENT (test code = PTP) INTERNATIONAL NORMAL 0.96 <2.0 RECOMME NDED THERAPEUTIC RATIO (test code = RANGE FOR ORAL INR) ANTICOAGULANTTR EATMENT: CONDI TION INRProphylaxis of venous thrombos is in 2.0 - 3.0 high-risk medic al or surgical patientsTreatme nt of venous thrombos is 2.0 - 3.0Prevention o f embolism 2.0 - 3.0Prevention o f recurrent embol ism, or 3.0 - 4. 5 patients with mechanical pros thetic intravascular v rodriguez IS PATIENT ON ANTICOAGULANTS ? YLIST ANTICOAGULANT/ANTI PLT MEDICATION : AspirinHas Lab been notified if Patient is on Heparin Drip? NOTHROMBOPLASTIN TIME [id number] 17:53:00 Test Item Value Reference Range Interpretation Comments PTT ACTIVATED (test code = APTT) 31.2 secs 24.9-37.0 N IS PATIENT ON ANTICOAGULANTS ? YLIST ANTICOAGULANT/ANTI PLT MEDICATION : AspirinHas Lab been notified if Patient is on Heparin Drip? NOURINALYSIS [id number] 17:40:00 Test Item Value Reference Range Interpretation Comments UA COLOR (test code YELLOW YELLOW = COLU) UA APPEARANCE (test SL CLOUDY CLEAR A code = APPU) UA GLUCOSE DIPSTICK NEGATIVE NEGATIVE (test code = DGLUU) UA BILIRUBIN 2+ NEGATIVE A Results may be DIPSTICK (test code falsely = BILU) elevated.Test results should be interpreted wit h careas no confirmatory te st is available. UA KETONE DIPSTICK 3+ mg/dL NEG (test code = KETU) UA SPECIFIC GRAVITY 1.025 1.003-1.035 (test code = SGU) UA BLOOD DIPSTICK NEGATIVE NEGATIVE (test code = ELLIOTT) UA PH DIPSTICK (test 6.0 >6.5 code = BERTHA) UA PROTEIN DIPSTICK NEGATIVE mg/dL NEG (test code = PROU) UA UROBILINIOGEN 0.2 mg/dL NORM DIPSTICK (test code = URO) UA NITRITE DIPSTICK NEGATIVE NEG (test code = DEX) UA LEUKOCYTE NEGATIVE NEGATIVE ESTERASE DIPSTICK (test code = LEUU) UA WBC (test code = <5.0 /HPF 0-2 WBCU) UA RBC (test code = 0-2 /HPF 0-2 RBCU) UA EPITHELIAL CELLS MOD /HPF 0-2 (test code = EPIU) UA BACTERIA (test 1+ /HPF NONE A code = BACU) CBC W/AUTO [id number] 17:30:00 Test Item Value Reference Range Interpretation Comments WHITE BLOOD CELL (test code = WBC) 6.3 K/mm3 5.8-11.0 N RED BLOOD CELL (test code = RBC) 4.30 M/mm3 4.2-5.4 N HEMOGLOBIN (test code = HGB) 15.0 g/dL 12-16 N HEMATOCRIT (test code = HCT) 44.3 % 37-47 N MEAN CELL VOLUME (test code = MCV) 103 fL 80-98 H MEAN CELL HGB (test code = MCH) 34.9 pg 27-34 H MEAN CELL HGB CONCENTRATION (test 33.9 g/dL 30.8-34.1 N code = MCHC) RED CELL DISTRIBUTION WIDTH (test 15.3 % 11-16 N code = RDW) PLT (test code = PLT) 300 K/mm3 130-400 N MEAN PLATELET VOLUME (test code = 9.7 fL 8.9-12.1 N MPV) NEUTROPHIL % (test code = NT%) 61.9 % 45-70 N LYMPHOCYTE % (test code = LY%) 24.1 % 20-40 N MONOCYTE % (test code = MO%) 10.8 % 3-10 H EOSINOPHIL % (test code = EO%) 1.6 % 1-5 N BASOPHIL % (test code = BA%) 0.8 % 0.0-1.1 N NEUTROPHIL # (test code = NT#) 3.92 K/mm3 2.00-7.50 N LYMPHOCYTE # (test code = LY#) 1.52 K/mm3 1.50-4.00 N MONOCYTE # (test code = MO#) 0.68 K/mm3 0.2-0.8 N EOSINOPHIL # (test code = EO#) 0.10 K/mm3 0.04-0.4 N BASOPHIL # (test code = BA#) 0.05 K/mm3 0.02-0.10 N MANUAL DIFF REQUIRED (test code = NO MANUAL DIFF MDIFF) NUCLEATED RED BLOOD CELL (test 0 % 0-0 N code = NRBC)
== END 2021-10-14 11:37 | disposition home or self-care (01) | DRG 291 ==
LOC: ER 17:24 → ERHOLD 19:55 → 2ND 22:25
PROVIDERS: ADMIT Internal Medicine; ATTEND Internal Medicine
PROC: 5A09557 Assistance with Respiratory Ventilation, Greater than 96 Consecutive Hours, Continuous Positive Airway Pressure (ICD-10-PCS; principal; 2021-10-09)
DX: I11.0 Hypertensive heart disease with heart failure (principal); J96.22 Acute and chronic respiratory failure with hypercapnia; J96.21 Acute and chronic respiratory failure with hypoxia; I50.33 Acute on chronic diastolic (congestive) heart failure; J44.1 Chronic obstructive pulmonary disease with (acute) exacerbation; E66.2 Morbid (severe) obesity with alveolar hypoventilation; Z68.43 Body mass index [BMI] 50.0-59.9, adult; I48.0 Paroxysmal atrial fibrillation; E78.5 Hyperlipidemia, unspecified; R73.03 Prediabetes; Z91.14 Patient's other noncompliance with medication regimen; Z87.891 Personal history of nicotine dependence; Z20.822 Contact with and (suspected) exposure to COVID-19
CPT/HCPCS: 36415; 71045; 80048; 80053; 80061; 81003; 81015; 82805; 83036; 83735; 83880; 84443; 84484; 85025; 85027; 93005; 93306; 93970; 94640; 94660; 96372; 99285; J1160; J1650; J1940; J2920; J2930; J3475; J3490; J3535; J7030; J7512; U0003

== ENCOUNTER 2022-04-13 00:01 | Inpatient (IN) | payer BC, OTHER ==
--- OUTSIDE RECORDS SUMMARY | 2022-04-13 00:05 | XMS REPORT | Continuity of Care Document ---
:1960 Author Organization [facility] t Address [address] [place] [address] Care Team Providers Name Role Phone Unavailable Unavailable Unavailable Payers Payer Name Policy Type Policy Number Effective Date Expiration Date S ource Problems This patient has no known problems. Allergies, Adverse Reactions, Alerts Allergy Allergy Status Severity Reaction(s) Onset Inactive Treating Comm ents Source Name Type Date Date Clinician No Known DA Active U 2018-0 [facility] 07[facility]14 [place] [facility] No Known DA Active U 2018-0 [facility] [place] Medications This patient has no known medications. [...] RATE 68.5 >60 U nit of measure: mL/min/1.73 (test code = GFR) [id number] e Range:Healthy Adults >90 mL/m in/1.73 m2 For Chronic Kidney Disease: Stage II Mild Decreas e in GFR 60-90 Stage III Moder ate Decrease in GFR 30-59 St age IV Severe Decrease in GFR 15-29 Stage V Kidney Failure <15 CREATININE (test code = CREAT) 0.85 mg/dL 0.55-1.30 N CALCIUM (test code = CA) 8.8 mg/dL 8.2-10.1 N - XR PELVIS 1/2 [id number] 07:17:00 Patient Name: LORAINE CHUN Unit No: [id number] EXAMS: CPT CODE: [id number] XR PELVIS 1/2 VIEWS 22124 INTRAOPERATIVE LEG LENGTH FILM COMMENT: COMPARISON: No prior exams available. In progress righthip replacement is noted. AP PORTABLE RIGHT HIP COMMENT: The patient is status post joint replacement which is articulating normally. at 0711 Reported and signed by: Kelby Fierro MD CC: Gordon Benitez Technologist: ARABELLA ZAIDI(R) Transcribed D/ (0717) tEMILIE [facility] NAME: LORAINE CHUN [address] [place] [address] PHYS: Gordon Hayes : 1960 AGE: 57 SEX: F [place] [address] LOC: Y.322 A PHONE #: [phone] EXAM DATE: 07/14/2018 STATUS: ADM IN FAX #: [phone] RAD #: D/C DT PAGE 1 Signed Report Patient Name: LORAINE CHUN Unit No: [id number] EXAMS: CPT CODE: [id number] XR PELVIS 1/2 VIEWS 27934 (Continued) Orig Print D/T: S: 07/15/2018 (1027) [facility] NAME: LORAINE CHUN [address] [place] [address] PHYS: Gordon Hayes : 1960 AGE: 57 SEX: F [place], [place] [address] LOC: Y.322 A PHONE #:[phone] EXAM DATE: 07/14/2018 STATUS: ADM IN FAX #: [phone] RAD #: D/C DT PAGE 2 Signed Report- XR PELVIS 1/2 [id number] 07:17:00 Patient Name: LORAINE CHUN Unit No: [id number] EXAMS: CPT CODE: [id number] XR PELVIS 1/2 VIEWS 69074 INTRAOPERATIVE LEG LENGTH FILM COMMENT: COMPARISON: No prior exams available. In progress righthip replacement is noted. AP PORTABLE RIGHT HIP COMMENT: The patient is status post joint replacement which is articulating normally. at 0717 Reported and signed by: Kelby Fierro MD CC: Gordon Benitez Technologist: ARABELLA ZAIDI(R) Transcribed D/ (0717) t.ROSYR.JCL [facility] NAME: LORAINE CHUN [address] [place] [address] PHYS: Gordon Hayes : 1960 AGE: 57 SEX: F [place] [address] LOC: Y.322 A PHONE #: [phone] EXAM DATE: 07/14/2018 STATUS: ADM IN FAX #: [phone] RAD #: D/C DT PAGE 1 Signed Report Patient Name: LORAINE CHUN Unit No: [id number] EXAMS: CPT CODE: [id number] XR PELVIS 1/2 VIEWS 39037 (Continued) Orig Print D/T: S: 07/15/2018 (1027) [facility] NAME: LORAINE CHUN [address] [place] [address] PHYS: RENNY BenitezGordonvicky Ramirez : 1960 AGE: 57 SEX: F [place] [address] LOC: Y.322 A PHONE #: [phone] EXAM DATE: 07/14/2018 STATUS: ADM IN FAX #: [phone] RAD #: D/C DT PAGE 2 Signed ReportB [facility] 2018-07-15 05:53:00 Test Item Value Reference Range Interpretation Comments HEMOGLOBIN (test code = HGB) 13.3 g/dL 12-16 N HEMATOCRIT (test code = HCT) 39.8 % 37-47 N AB HIV 20:55:00 Test Item Value Reference Range Interpretation Comments AB HIV 1 (test code NONREACTIVE NONREACTIVE DONE AT: [facility] = HIV1AB) [facility] [address] [facility], [place] [address]Done by [email or web address] aur 4th Gen HIV Ag/Ab C ombo Screen AB HIV 1 20:55:00 Test Item Value Reference Range Interpretation Comments AB HIV 1 2 (test NONREACTIVE NONREACTIVE Done by [employer] code = [id number]) 4th Gen HIV Ag/Ab Combo Screen COMPREHENSIVE METABOLIC [id number] 18:08:00 Test Item Value Reference Range Interpretation [...] RATE (test code = GFR) mL/mi n/1.73 [id number] Range:Healthy Adults >90 mL/min/1.73 m2 For Chronic Kidney Disease: Stage II Mild Decrease i n GFR 60-90 Stage III Moderate Decrea se in GFR 30-59 St age IV Severe Decre ase in GFR 15-29 St age V Kidney Failur e <15 CREATININE (test code = 0.68 mg/dL [...] N TOTAL (test code = ALKP) PROTHROMBIN [id number] 17:53:00 Test Item Value Reference Range Interpretation Comments PROTHROMBIN TIME 10.8 secs 10.1-12.5 N PATIENT (test code = PTP) INTERNATIONAL NORMAL 0.96 <2.0 RECOMME NDED THERAPEUTIC RATIO (test code = RANGE FOR ORAL INR) ANTICOAGULANTTR EATMENT: CONDITION INRPr ophylaxis of venous throm bosis in 2.0 - 3.0 high- risk medical or surg ical patientsTreatme nt of venous thrombos is 2.0 - 3.0Prevention o f embolism 2.0 - 3.0Prevention o f recurrent embol ism, or 3.0 - 4.5 patie nts with mechanical pros thetic intravascular v rodriguez IS PATIENT ON ANTICOAGULANTS ? YLIST ANTICOAGULANT/ANTI PLT MEDICATION : AspirinHas Lab been notified if Patient is on Heparin Drip? NOTHROMBOPLASTIN TIME [id number] 17:53:00 Test Item Value Reference Range Interpretation Comments PTT ACTIVATED (test code = APTT) 31.2 secs 24.9-37.0 N IS PATIENT ON ANTICOAGULANTS ? YLIST ANTICOAGULANT/ANTI PLT MEDICATION : AspirinHas Lab been notified if Patient is on Heparin Drip? NOURINALYSIS [id number] 17:40:00 Test Item Value Reference Range Interpretation [...] NONE A code = BACU) CBC W/AUTO [id number] 17:30:00 Test Item Value Reference Range Interpretation [...]
[2022-04-13] MEDS ORDERED: METHYLPREDNISOLONE 125 MG INJ ONE (00:51)
[2022-04-13] MEDS ORDERED: IPRATROPIUM BROM 0.5MG/2.5ML ONE (00:51)
[2022-04-13] MEDS ORDERED: ALBUTEROL 2.5 MG/3 ML NEB SOL ONE (00:51)
[2022-04-13] MEDS ORDERED: FUROSEMIDE 40 MG/4 ML VIAL ONE (00:51)
[2022-04-13 01:22] LABS: Absolute Lymphocytes (CBC) 0.9 K/uL (0.7-4.9); Hematocrit 42.7 % (36.0-45.0); Lymphocytes % 17.8 % (15.3-44.8); MCV 111.4 fL (80-100); MPV 7.7 fL (7.6-11.3); RBC Red Blood Cell Count 3.83 M/uL (3.86-4.86)
[2022-04-13 01:38] LABS: Albumin 3.8 g/dL (3.4-5.0); Bilirubin Total 1.2 mg/dL (0.2-1.0); Protein, Total 7.1 g/dL (6.4-8.2); Troponin High Sensitivity 6.3 pg/mL (<58.9)
--- NOTE | 2022-04-13 02:59 | ER ---
Nurse's Notes [facility] Name: Carla Harris Age: 61 yrs Sex: Female : 1960 Arrival Date: 04/13/2022 Time: 00:12 Bed 5 Private MD: Diagnosis: Acute pulmonary edema;Acute respiratory failure with hypoxia Presentation: 04/13 00:23 Chief complaint: EMS states: "We were called out for shortness of breath when we vc1 arrived she was 88% on room air. She used to be on oxygen but they took her off of it.". Coronavirus screen: Vaccine status: Patient reports receiving the 2nd dose of the covid vaccine. Pfizer cough unrelated to allergies, Client presents with at least one sign or symptom that may indicate coronavirus-19. Standard/surgical mask placed on the client. Provider contacted for isolation considerations. Ebola Screen: No symptoms or risks identified at this time. Initial Sepsis Screen: Does the patient meet any 2 criteria? RR > 20 per min. HR > 90 bpm. Yes Does the patient have a suspected source of infection? No. Patient's initial sepsis screen is negative. Risk Assessment: Do you want to hurt yourself or someone else? Patient reports no desire to harm self or others. Onset of symptoms was April 10, 2022. 00:23 Method Of Arrival: EMS: [facility] vc1 00:23 Acuity: DANK 3 vc1 Triage Assessment: 00:36 General: Appears distressed, uncomfortable, obese, Behavior is anxious. Pain: Complains vc1 of pain in right shoulder and right hip, left ankle and leg. EENT: No deficits noted. Neuro: Level of Consciousness is awake, alert, obeys commands, Oriented to person, place, time, situation, Appropriate for age. Cardiovascular: Edema to left leg and foot. Respiratory: Reports shortness of breath at rest on exertion labored breathing Onset: The symptoms/episode began/occurred gradually, the patient has moderate shortness of breath. Respiratory: Airway is patent Respiratory effort is even, labored, Respiratory pattern is symmetrical, tachypnea. GI: No deficits noted. No signs and/or symptoms were reported involving the gastrointestinal system. : No deficits noted. No signs and/or symptoms were reported regarding the genitourinary system. Derm: No deficits noted. No signs and/or symptoms reported regarding the dermatologic system. Musculoskeletal: No deficits noted. No signs and/or symptoms reported regarding the musculoskeletal system. Historical: - Allergies: 00:31 No Known Allergies; vc1 - Home Meds: 00:31 Albuterol Inhl [Active]; Atrovent Inhl [Active]; symbicort [Active]; amlodipine 10 mg vc1 tab 1 tab once daily [Active]; potassium chloride 20 mEq Oral TbTQ 1 tab once daily [Active]; acetazolamide 250 mg Oral tab 1 tab once daily [Active]; atorvastatin 40 mg oral tab 1 tab once daily [Active]; Spironolactone Oral [Active]; sotalol 80 mg Oral tab 1 tab [Active]; furosemide 20 mg Oral tab 1 tab once daily [Active]; - PMHx: 00:31 "pre diabetic"; COPD; vc1 - PSHx: 00:31 Ankle; section; hip; vc1 - Immunization history:: Client reports receiving the 2nd dose of the Covid vaccine. - Social history:: Smoking status: Patient denies any tobacco usage or history of. - Family history:: not pertinent. Screenin:35 Abuse screen: Denies threats or abuse. Nutritional screening: No deficits noted. vc1 Tuberculosis screening: No symptoms or risk factors identified. 02:14 [facility] ED Fall Risk Assessment (Adult) Impaired Gait Yes (1 pt) Score/Fall Risk Level as6 0 - 2 = Low Risk. Assessment: 00:35 Pain: Complains of pain in right shoulder and hip, left ankle. Cardiovascular: Rhythm vc1 is atrial fibrillation. Respiratory: Airway is patent Respiratory effort is even, labored, Respiratory pattern is symmetrical, tachypnea. 02:14 General: Appears obese, Behavior is calm, cooperative. Cardiovascular: Edema is 3+ to as6 left midcalf, left ankle, left foot, left toes, right midcalf, right ankle, right foot and right toes. Respiratory: Reports shortness of breath on exertion. Vital Signs: 00:23 BP 119 / 75; Pulse 102; Resp 24; Temp 97.6(O); Pulse Ox 100% on 4 lpm NC; Weight 136.08 vc1 kg; Height 5 ft. 1 in. (154.94 cm); 01:30 BP 115 / 84; Pulse 93; Resp 25 S; Pulse Ox 97% on 2 lpm NC; as6 02:22 BP 111 / 74; Pulse 101; Resp 21 S; Pulse Ox 95% on 2 lpm NC; as6 03:01 BP 114 / 86; Pulse 90; Resp 24 S; Pulse Ox 92% on 2 lpm NC; as6 00:23 Body Mass Index 56.68 (136.08 kg, 154.94 cm) vc1 ED Course: 00:12 Patient arrived in ED. ja2 00:13 Papa Benavidez MD is Attending Physician. rt 00:27 Berhane Weber, SALUD is Primary Nurse. as6 00:31 Triage completed. vc1 00:54 Chest Single View XRAY In Process Unspecified. EDMS 01:00 Inserted saline lock: 20 gauge in right antecubital area, using aseptic technique. as6 Blood collected. 01:06 CBC with Diff Sent. as6 01:06 CMP Sent. as6 01:06 Troponin High Sensitivity Sent. as6 01:06 BNP Sent. as6 02:14 Bed in low position. Call light in reach. Side rails up X2. as6 02:14 Arm band placed on. as6 02:23 Diet tray given. PO fluids given. as6 02:58 Jake Simms MD is Hospitalizing Provider. rt 04:22 No provider procedures requiring assistance completed. Patient admitted, IV remains in as6 place. Administered Medications: 01:06 Drug: DuoNeb (albuterol 2.5 mg, ipratropium 0.5 mg) (3:1) (2.5 mg - 0.5 mg) 3 ml Route: as6 Nebulizer; 04:44 Follow up: Response: No adverse reaction as6 01:06 Drug: SOLU-Medrol (methylPrednisoLONE) 125 mg Route: IVP; Site: right antecubital; as6 04:44 Follow up: Response: No adverse reaction as6 01:17 Drug: Lasix (furosemide) 40 mg Route: IVP; Site: right antecubital; as6 04:44 Follow up: Response: No adverse reaction as6 Medication: 00:36 VIS not applicable for this client. vc1 Outcome: 02:58 Decision to Hospitalize by Provider. rt 04:22 Admitted to Tele accompanied by wilberto, via stretcher, jean-paul Stewart RN. as6 04:22 Condition: stable 04:22 Instructed on the need for admit. 05:01 Patient left the ED. as6 Signatures: Dispatcher [employer] EDMS Hans Nabila ja2 Berhane Weber RN RN as6 Destiny Arevalo RN RN vc1 Papa Benavidez MD MD rt Corrections: (The following items were deleted from the chart) 00:35 00:31 Home Meds: ipatropium bromide; vc1 vc1
--- NOTE | 2022-04-13 02:59 | EDPHYS ---
Physician Documentation [facility] Name: Carla Harris Age: 61 yrs Sex: Female : 1960 Arrival Date: 04/13/2022 Time: 00:12 Bed 5 Private MD: ED Physician Papa Benavidez HPI: 04/13 02:02 This 61 yrs old Female presents to ER via EMS with complaints of Shortness Of Breath. rt 02:02 The patient has shortness of breath at rest. Onset: The symptoms/episode began/occurred rt 3 day(s) ago. Duration: The symptoms are continuous, and are steadily getting worse. The patient's shortness of breath is aggravated by walking, is alleviated by rest, application of supplemental oxygen. Severity of symptoms: At their worst the symptoms were moderate. Presents to the ED with dyspnea for the past 3 days, continuing to get worse. She has no baseline oxygen requirement, was reportedly saturating about 88% on room air, improving with supplemental O2. She states the symptoms are significantly worse with exertion. Denies other acute complaints at this time. Symptoms are moderate in severity, no other aggravating or alleviating factors.. Historical: - Allergies: 00:31 No Known Allergies; vc1 - Home Meds: 00:31 Albuterol Inhl [Active]; Atrovent Inhl [Active]; symbicort [Active]; amlodipine 10 mg vc1 tab 1 tab once daily [Active]; potassium chloride 20 mEq Oral TbTQ 1 tab once daily [Active]; acetazolamide 250 mg Oral tab 1 tab once daily [Active]; atorvastatin 40 mg oral tab 1 tab once daily [Active]; Spironolactone Oral [Active]; sotalol 80 mg Oral tab 1 tab [Active]; furosemide 20 mg Oral tab 1 tab once daily [Active]; - PMHx: 00:31 "pre diabetic"; COPD; vc1 - PSHx: 00:31 Ankle; section; hip; vc1 - Immunization history:: Client reports receiving the 2nd dose of the Covid vaccine. - Social history:: Smoking status: Patient denies any tobacco usage or history of. - Family history:: not pertinent. ROS: 02:02 Constitutional: Negative for fever, chills, and weight loss, Eyes: Negative for injury, rt pain, redness, and discharge, ENT: Negative for injury, pain, and discharge, Neck: Negative for injury, pain, and swelling, Abdomen/GI: Negative for abdominal pain, nausea, vomiting, diarrhea, and constipation, MS/Extremity: Negative for injury and deformity, Skin: Negative for injury, rash, and discoloration, Neuro: Negative for headache, weakness, numbness, tingling, and seizure, Psych: Negative for depression, anxiety, suicide ideation, homicidal ideation, and hallucinations. 02:02 Cardiovascular: Positive for edema, Negative for chest pain. 02:02 Respiratory: Positive for dyspnea on exertion, shortness of breath. Exam: 02:02 Constitutional: This is a well developed, well nourished patient who is awake, alert, rt and in no acute distress. Head/Face: Normocephalic, atraumatic. Eyes: Pupils equal round and reactive to light, extra-ocular motions intact. Lids and lashes normal. Conjunctiva and sclera are non-icteric and not injected. Cornea within normal limits. Periorbital areas with no swelling, redness, or edema. Neck: Trachea midline, no thyromegaly or masses palpated, and no cervical lymphadenopathy. Supple, full range of motion without nuchal rigidity, or vertebral point tenderness. No Meningismus. Chest/axilla: Normal chest wall appearance and motion. Nontender with no deformity. No lesions are appreciated. Cardiovascular: Regular rate and rhythm with a normal S1 and S2. No gallops, murmurs, or rubs. Normal PMI, no JVD. No pulse deficits. Abdomen/GI: Soft, non-tender, with normal bowel sounds. No distension or tympany. No guarding or rebound. No evidence of tenderness throughout. Skin: Warm, dry with normal turgor. Normal color with no rashes, no lesions, and no evidence of cellulitis. Neuro: Awake and alert, GCS 15, oriented to person, place, time, and situation. Cranial nerves II-XII grossly intact. Motor strength 5/5 in all extremities. Sensory grossly intact. Cerebellar exam normal. Normal gait. Psych: Awake, alert, with orientation to person, place and time. Behavior, mood, and affect are within normal limits. 02:02 ECG was reviewed by the Attending Physician. 02:02 Respiratory: Coarse breath sounds on all lung raymond, mild respiratory distress. 02:02 Musculoskeletal/extremity: 3+ pitting bilateral lower extremity edema, no overlying cellulitis. Vital Signs: 00:23 BP 119 / 75; Pulse 102; Resp 24; Temp 97.6(O); Pulse Ox 100% on 4 lpm NC; Weight 136.08 vc1 kg; Height 5 ft. 1 in. (154.94 cm); 01:30 BP 115 / 84; Pulse 93; Resp 25 S; Pulse Ox 97% on 2 lpm NC; as6 02:22 BP 111 / 74; Pulse 101; Resp 21 S; Pulse Ox 95% on 2 lpm NC; as6 03:01 BP 114 / 86; Pulse 90; Resp 24 S; Pulse Ox 92% on 2 lpm NC; as6 00:23 Body Mass Index 56.68 (136.08 kg, 154.94 cm) vc1 MDM: 00:14 Patient medically screened. rt 02:59 Differential diagnosis: Chronic Obstructive Pulmonary Disease Myocardial Infarction rt pulmonary edema, Pulmonary Embolism reactive airway disease. Data reviewed: vital signs, nurses notes, old medical records, lab test result(s), EKG, radiologic studies. ED course: Patient presents to the ED with dyspnea, is reported to be hypoxic, correcting on supplemental O2, she has no baseline oxygen requirement. Patient with significant edema. Elevated BNP. Patient is improving with bronchodilators, diuretics in the ED. He still has an oxygen requirement. Do not suspect pulmonary embolism, CT angiogram was considered, not indicated. Of note, the patient has a old injury to the right shoulder. The patient denies any recent injury or current dislocation. I did review the images, does not appear typical for an anterior dislocation. No further work-up for this is indicated. Patient will be admitted to the hospital service for further care.. 04/13 00:23 Order name: CBC with Diff; Complete Time: 03:52 rt 04/13 00:23 Order name: CMP; Complete Time: 02:41 rt 04/13 00:23 Order name: Troponin High Sensitivity; Complete Time: 02:41 rt 04/13 00:23 Order name: BNP; Complete Time: 02:41 rt 04/13 01:29 Order name: CBC Smear Scan; Complete Time: 03:52 EDMS 04/13 03:01 Order name: SARS RAPID; Complete Time: 03:52 as6 04/13 00:23 Order name: Chest Single View XRAY rt 04/13 03:14 Order name: DD; Complete Time: 03:52 la1 04/13 03:47 Order name: Chest For PE Angio CT la1 EC:02 Rate is 93 beats/min. Rhythm is irregularly irregular, A fib with Occasional PVCs. QRS rt Todd is Normal. QRS interval is normal. QT interval is normal. No Q waves. T waves are Normal. No ST changes noted. Administered Medications: 01:06 Drug: DuoNeb (albuterol 2.5 mg, ipratropium 0.5 mg) (3:1) (2.5 mg - 0.5 mg) 3 ml Route: as6 Nebulizer; 04:44 Follow up: Response: No adverse reaction as6 01:06 Drug: SOLU-Medrol (methylPrednisoLONE) 125 mg Route: IVP; Site: right antecubital; as6 04:44 Follow up: Response: No adverse reaction as6 01:17 Drug: Lasix (furosemide) 40 mg Route: IVP; Site: right antecubital; as6 04:44 Follow up: Response: No adverse reaction as6 Disposition: 02:59 Critical Care:. rt Disposition Summary: 04/13/22 02:58 Hospitalization Ordered Hospitalization Status: Observation rt Provider: Jake Simms rt Location: Telemetry/MedSurg (observation) rt Condition: Fair rt Problem: an acute exacerbation rt Symptoms: have improved rt Bed/Room Type: Standard rt Room Assignment: 405(04/13/22 04:00) cg Diagnosis - Acute pulmonary edema rt - Acute respiratory failure with hypoxia rt Forms: - Medication Reconciliation Form rt - SBAR form rt Critical care time excluding procedures: 02:59 Critical care time: Bedside Care: 30 minutes, Consultation: 5 minutes. Total time: 35 rt minutes Signatures: Dispatcher [employer] EDMS Umesh Chavez FNP-C FNP-Cla1 Viki Casas RN RN cg Berhane Weber RN RN as6 Destiny Arevalo RN RN vc1 Papa Benavidez MD MD rt Corrections: (The following items were deleted from the chart) 00:35 00:31 Home Meds: ipatropium bromide; vc1 vc1 04:00 02:58 rt cg
[2022-04-13 03:40] LABS: Blood Morphology Comment NOTED (NOT SEEN); Macrocytosis 2+; Platelet Estimate ADEQ; White Blood Cell Scan OK (OK)
--- NOTE | 2022-04-13 03:44 | P.HP ---
Certification for Inpatient Patient admitted to: Inpatient With expected LOS: >2 Midnights Patient will require the following post-hospital care: None Practitioner: I am a practitioner with admitting privileges, knowledge of patient current condition, hospital course, and medical plan of care. Services: Services provided to patient in accordance with Admission requirements found in Title 42 Section 412.3 of the Code of Federal Regulations <ScottUmesh Sarah - Last Filed: 04/13/22 03:44> Patient History Date of Service: 04/13/22 Reason for admission: CHF exacerbation History of Present Illness: 61-year-old female with history of atrial fibrillation on chronic anticoagulation therapy, chronic diastolic congestive heart failure, COPD, hypertension, hyperlipidemia, hypothyroidism, DARIO presents to the emergency department for shortness of breath, lower extremity edema. She reports she noticed increased welling to lower extremities over the course of the last 1 month but began to become much more short of breath over the course of last 24 to 48 hours, she is short of breath at rest but especially with ambulation re ports she can barely walk to the bathroom. She is found to be hypoxic on room air saturating in the mid 80s. Her labs in the ER were significant for BNP 713 T bili 1.2 D-dimer level is pending as she has not been taking her Eliquis as she has been unable to afford this medication admit for further evaluation and management of acute on chronic hypoxic respiratory failure secondary to CHF exacerbation. - Past Medical/Surgical History Diabetic: No -: COPD -: HTN -: HLD -: DARIO -: Tr Cellulitis -: Chronic diastolic congestive heart failure -: Atrial fibrillation on chronic anticoagulation -: -: hip/ankle surgery Psychosocial/ Personal History: Pt currently unemployed after a fall last year, lives with family - Family History Mother -: Cancer Notes: stomach - Social History Smoking Status: Former smoker Alcohol use: Yes CD- Drugs: No Caffeine use: Yes Place of Residence: Home <Umesh Chavez - Last Filed: 04/13/22 03:44> Date of Service: 04/13/22 <Jake Simms - Last Filed: 04/13/22 20:44> Allergies No Known Allergies Allergy (Unverified 04/13/22 03:13) Home Medications: Acetaminophen [Tylenol Extra Strength] 500 mg PO PRN 10/10/21 Amlodipine [Norvasc*] 10 mg PO DAILY 10/10/21 Furosemide 40 mg PO DAILY 10/10/21 Atorvastatin Calcium [Lipitor] 40 mg PO BEDTIME #30 tab 10/13/21 Mometasone/Formoterol [Dulera 200 Mcg/5 Mcg Inhaler] 2 puff IH BID #1 inhaler 10/13/21 Sotalol HCl [Betapace*] 80 mg PO BID 6AM 6PM #60 tab 10/13/21 Spironolactone [Aldactone*] 25 mg PO BID #60 tab 10/13/21 acetaZOLAMIDE [Diamox*] 250 mg PO DAILY #30 tab 10/13/21 Review of Systems 10-point ROS is otherwise unremarkable Respiratory: Shortness of Breath, SOB with Excertion Cardiovascular: Edema <Umesh Chavez - Last Filed: 04/13/22 03:44> Physical Examination - Physical Exam General: Alert, In no apparent distress, Oriented x3 HEENT: Atraumatic, PERRLA, Mucous membr. moist/pink, EOMI, Sclerae nonicteric Neck: Supple, 2+ carotid pulse no bruit, No LAD, Without JVD or thyroid abnormality Respiratory: Diminished, Crackles/rales Cardiovascular: Normal S1 S2, Edema (3+ pitting edema bilateral lower extremities), Irregular heart rate/rhythm (A. fib, rate controlled) Capillary refill: <2 Seconds Gastrointestinal: Normal bowel sounds, No tenderness Musculoskeletal: No tenderness Integumentary: No rashes Neurological: Normal gait, Normal speech, Normal strength at 5/5 x4 extr, Normal tone, Normal affect Lymphatics: No axilla or inguinal lymphadenopathy - Studies Laboratory Data (last 24 hrs) 04/13/22 01:05: Sodium 137, Potassium 4.0, BUN 11, Creatinine 0.77, Glucose 98, Total Bilirubin 1.2 H, AST 57 H, ALT 51, Alkaline Phosphatase 61 04/13/22 01:05: WBC 5.10, Hgb 14.3, Hct 42.7, Plt Count 279 <Umesh Chavez - Last Filed: 04/13/22 03:44> - Studies Laboratory Data (last 24 hrs) 04/13/22 01:05: Sodium 137, Potassium 4.0, BUN 11, Creatinine 0.77, Glucose 98, Total Bilirubin 1.2 H, AST 57 H, ALT 51, Alkaline Phosphatase 61 04/13/22 01:05: WBC 5.10, Hgb 14.3, Hct 42.7, Plt Count 279 <Jake Simms - Last Filed: 04/13/22 20:44> Assessment and Plan - Plan Assessment: Acute hypoxic respite failure secondary to acute on chronic diastolic congestive heart failure Atrial fibrillation on chronic anticoagulation therapy-noncompliant COPD DARIO Hypertension Hyperlipidemia Plan: Acute hypoxic respite failure secondary to acute on chronic diastolic congestive heart failure: Continue with IV diuresis, cardiology consult in place. Daily weights ordered, patient reports that she has been compliant with her Lasix 40 mg p.o. twice daily as well as spironolactone 25 mg p.o. twice daily. She denies dietary changes or large volume of fluid intake. Last echocardiogram performed on 10/11/2019 demonstrated poor windows but normal LVEF, left atrial enlargement. Appreciate further input from cardiology, repeat echocardiogram ordered. Atrial fibrillation on chronic anticoagulation therapy-noncompliant: Patient is taking sotalol, this medication has been continued. She reports that when she was discharged in the hospital she was given a coupon for 30 days of Eliquis after using the coupon she was unable to afford this medication and has been off of it ever since. Eliquis has been restarted, will be ruling out pulmonary embolism, director social welfare consulted to see if there is any additional programs to assist with cost of Eliquis, Spiriva. COPD: Continue ICS,. Nebulizer treatments. DARIO: CPAP at night. Hypertension: Continue home medications Hyperlipidemia: Continue home medications DVT PPX: Continue Eliquis Code status: Full Discharge Plan: Home Plan to discharge in: Greater than 2 days - Advance Directives Does patient have a Living Will: No Does patient have a Durable POA for Healthcare: No - Code Status/Comfort Care Code Status Assessed: Yes (Full code) Critical Care: No Time Spent Managing Pts Care (In Minutes): 70 <Umesh Chavez - Last Filed: 04/13/22 03:44> - Plan Patient seen and examined on rounds this morning. Patient reports feeling much better still hypoxic and dyspneic <Jake Simms - Last Filed: 04/13/22 20:44>
[2022-04-13 03:52] LABS: SARS-CoV-2 Antigen Rapid Res Negative (Negative)
[2022-04-13] MEDS ORDERED: BENZONATATE 100 MG CAP PO PRN (04:23)
[2022-04-13] MEDS ORDERED: ALBUTEROL 2.5 MG/3 ML NEB SOL NEB PRN (04:23)
[2022-04-13] MEDS ORDERED: ONDANSETRON 4 MG/2 ML VIAL IV PRN (04:23)
[2022-04-13] MEDS ORDERED: ACETAMINOPHEN 500 MG TAB PO PRN (04:23)
[2022-04-13 05:24] VITALS: BMI 56.7
[2022-04-13] MEDS: SOTALOL HCL 80 MG TAB PO SCH ×2 (05:31→17:10)
[2022-04-13] MEDS: FUROSEMIDE 40 MG/4 ML VIAL IV SCH ×2 (08:13→17:10)
[2022-04-13] MEDS: DULERA 200/5 (MOMETASONE/FORMOTEROL) INHALER IH SCH ×2 (08:13→20:32)
[2022-04-13] MEDS: APIXABAN 5 MG TABLET PO SCH ×2 (08:14→20:32)
[2022-04-13] MEDS: AMLODIPINE 10 MG TAB PO SCH (08:14)
[2022-04-13] MEDS: SPIRONOLACTONE 25 MG TABLET PO SCH ×2 (08:14→20:32)
[2022-04-13] MEDS: predniSONE 10 MG TAB PO SCH ×2 (08:15→17:10)
--- NOTE | 2022-04-13 12:27 | P.CNS ---
Date of Consult: 04/13/22 Reason for Consult: Respiratory distress Chief Complaint: CHF exacerbation History of Present Illness: Patient is 61 years of age with a history of A. fib chronic diastolic heart failure COPD admitted with worsening dyspnea the past 2 days also has significant lower extremity edema no change since admission apparently she was not taking her inhalers could not afford her medications Patient was hypoxic Allergies No Known Allergies Allergy (Unverified 04/13/22 03:13) Home Medications: Acetaminophen [Tylenol Extra Strength] 500 mg PO PRN 10/10/21 Amlodipine [Norvasc*] 10 mg PO DAILY 10/10/21 Furosemide 40 mg PO DAILY 10/10/21 Atorvastatin Calcium [Lipitor] 40 mg PO BEDTIME #30 tab 10/13/21 Mometasone/Formoterol [Dulera 200 Mcg/5 Mcg Inhaler] 2 puff IH BID #1 inhaler 10/13/21 Sotalol HCl [Betapace*] 80 mg PO BID 6AM 6PM #60 tab 10/13/21 Spironolactone [Aldactone*] 25 mg PO BID #60 tab 10/13/21 acetaZOLAMIDE [Diamox*] 250 mg PO DAILY #30 tab 10/13/21 - Past Medical/Surgical History Diabetic: No -: COPD -: HTN -: HLD -: DARIO -: Tr Cellulitis -: Chronic diastolic congestive heart failure -: Atrial fibrillation on chronic anticoagulation -: -: hip/ankle surgery Psychosocial/ Personal History: Pt currently unemployed after a fall last year, lives with family - Family History Mother Medical History: Cancer Notes: stomach - Social History Alcohol use: No CD- Drugs: No Caffeine use: Yes Place of Residence: Home Review of Systems 10-point ROS is otherwise unremarkable General: Weakness Respiratory: Shortness of Breath Physical Examination Temp Pulse Resp BP Pulse Ox 97.0 F 83 20 111/82 94 04/13/22 11:54 04/13/22 11:54 04/13/22 11:54 04/13/22 11:54 04/13/22 11:54 General: Alert, In no apparent distress, Moderate distress Respiratory: Clear to auscultation bilaterally, Diminished Cardiovascular: Edema, Irregular heart rate/rhythm (3+ edema) Gastrointestinal: Normal bowel sounds, Soft and benign Laboratory Data (last 24 hrs) 04/13/22 01:05: Sodium 137, Potassium 4.0, BUN 11, Creatinine 0.77, Glucose 98, Total Bilirubin 1.2 H, AST 57 H, ALT 51, Alkaline Phosphatase 61 04/13/22 01:05: WBC 5.10, Hgb 14.3, Hct 42.7, Plt Count 279 - Problems (1) Diastolic heart failure Current Visit: Yes Status: Acute Plan: Patient is 61 years of age admitted with acute on chronic dyspnea history of COPD chronic diastolic heart failure atrial fibrillation unable to afford her medications x-ray stable volume overload echocardiogram shows normal left ventricular ejection fraction chemistries reviewed no evidence of thromboembolism agree with present treatment with bronchodilators steroids diuretics spironolactone resume anticoagulation tomorrow able to afford her medication Qualifiers: Heart failure chronicity: acute on chronic Qualified Code(s): I50.33 - Acute on chronic diastolic (congestive) heart failure
[2022-04-13] MEDS: IPRATROPIUM BROM 0.5MG/2.5ML NEB PRN (14:25)
[2022-04-13] MEDS: ALBUTEROL 2.5 MG/3 ML NEB SOL NEB PRN (14:25)
--- NOTE | 2022-04-13 16:25 | EKG ---
Test Date: 2022-04-13 Test Time: 00:53:34 Stabber: MEASUREMENT RESULTS: Intervals: Rate: 93 [place]: QRSD: 72 QT: 380 QTc: 472 [place]: P: IL: QRS: 89 T: 45 INTERPRETIVE STATEMENTS: Atrial fibrillation with a competing junctional pacemaker with premature ventricular or aberrantly conducted complexes Low voltage QRS Cannot rule out Anterior infarct, age undetermined Abnormal ECG Compared to ECG 10/09/2021 19:24:15 Ventricular premature complex(es) now present Atrial flutter no longer present Myocardial infarct finding still present Electronically Signed On 04-13-22 16:25:14 SALES RECRUITER by Vladimir Julien
--- NOTE | 2022-04-13 19:55 | CON ---
Date of Consultation: 04/13/2022 Reason For Consultation: CHF exacerbation. History Of Present Illness: A 61-year-old female with history of atrial fibrillation, congestive hea rt failure, COPD, hypertension, dyslipidemia, obstructive sleep apnea, and morbid obesity, comes in w ith significant lower extremity edema and shortness of breath and orthopnea. Denies having any chest pain. She is severely fluid overloaded, started on Lasix and she is feeling slightly better. Past Medical History: As outlined above in the HPI. Medications: Refer reconciliation sheet for detailed list. Allergies: NO KNOWN DRUG ALLERGIES. Family History: No premature coronary artery disease or cancer. Social History: Is an ex-smoker. Does not drink or use any drugs. Review of Systems: All systems were reviewed and are negative except for mentioned in HPI. Physical Examination: Vital Signs: Temperature is 97.0, pulse 83, breathing at 18, blood pressure is 111/82, saturating 97 % on room air. General: Pleasant middle-aged female, morbidly obese, no apparent distress. HEENT: Pupils are equal, reactive to light. Intact eye movements. Nec: No cervical lymphadenopathy. Neck is supple. Thyroid is not enlarged. Lungs: Decreased breathing sounds with crackles in bases. No accessory muscle use or muscle retract ion. Heart: Irregularly irregular. No extra sounds. Abdomen: Soft, nontender. Bowel sounds positive. No organomegaly. No masses or hernia. No rigidi ty or rebound. Extremities: 3 to 4+ edema bilaterally. No clubbing, cyanosis. Intact pulses. Skin: No rash. No nausea. Neuro: Alert, awake, oriented x3. No acute focal deficits appreciated. Investigations: BUN 11, creatinine 0.77, and hemoglobin 14.3. Assessment And Recommendation: 1.Acute on chronic congestive heart failure exacerbation. Agree with Lasix 40 mg q.8 hours and [place] ctone. Monitor BUN, creatinine, electrolytes. Strict low-sodium diet and daily body weight. 2.Atrial fibrillation, appears to be controlled. Continue Eliquis and sotalol. 3.Hypertension. Blood pressure is controlled. 4.Dyslipidemia. Continue statin. SR/MODL Voice ID: [id number] Report ID: [id number]
[2022-04-13] MEDS: ATORVASTATIN 40 MG TAB PO SCH (20:32)
[2022-04-14] MEDS: FUROSEMIDE 40 MG/4 ML VIAL IV SCH ×3 (01:00→17:07)
[2022-04-14 05:45] LABS: Absolute Lymphocytes (CBC) 0.4 K/uL (0.7-4.9); Hematocrit 39.2 % (36.0-45.0); Lymphocytes % 7.4 % (15.3-44.8); RBC Red Blood Cell Count 3.47 M/uL (3.86-4.86)
[2022-04-14 05:50] LABS: MCV 112.8 fL (80-100)
[2022-04-14 06:10] LABS: Potassium 3.8 mmol/L (3.5-5.1); Thyroid Stimulating Hormone 0.674 uIU/mL (0.358-3.740)
[2022-04-14] MEDS: SOTALOL HCL 80 MG TAB PO SCH ×2 (06:31→17:07)
[2022-04-14] MEDS: AMLODIPINE 10 MG TAB PO SCH (09:00)
[2022-04-14] MEDS ORDERED: POTASSIUM CL SA 10 MEQ TAB PO ONE (09:00)
[2022-04-14] MEDS: ALBUTEROL 2.5 MG/3 ML NEB SOL NEB PRN ×2 (09:05→16:15)
[2022-04-14] MEDS: IPRATROPIUM BROM 0.5MG/2.5ML NEB PRN ×2 (09:05→16:15)
[2022-04-14] MEDS: APIXABAN 5 MG TABLET PO SCH ×2 (09:20→20:12)
[2022-04-14] MEDS: predniSONE 10 MG TAB PO SCH ×2 (09:20→17:07)
[2022-04-14] MEDS: SPIRONOLACTONE 25 MG TABLET PO SCH ×2 (09:20→20:12)
[2022-04-14] MEDS: DULERA 200/5 (MOMETASONE/FORMOTEROL) INHALER IH SCH ×2 (09:20→20:11)
--- NOTE | 2022-04-14 11:12 | RAD REPORT ---
EXAM DESCRIPTION: RAD - Chest Single View - 04/13/2022 12:52 am CLINICAL HISTORY: 61 years Female, COPD COMPARISON: 06/20/2015 TECHNIQUE: Single portable x-ray view of the chest performed on 04/13/2022 12:44 AM FINDINGS: The lung volumes are low. The left inferior hemithorax is poorly identified likely due to overlying soft tissue structures. There is no evidence of a pneumothorax. The cardiac silhouette is stable and is mildly prominent. The mediastinal contours are normal. No acute osseous abnormality is identified. There is questionable dislocation of the right shoulder a nd a probable old fracture of the right humeral neck. No acute soft tissue abnormalities are seen. Lines and tubes: None. Free air: None IMPRESSION: 1. Low lung volumes. 2. The left inferior hemithorax is poorly identified likely due to overlying soft tissue structures . 3. Questionable dislocation of the right shoulder and a probable old fracture of the right humeral neck. Correlate clinically. Electronically signed by: Heather Eaton DO 04/13/2022 1:11 AM [employer] Due to temporary technical issues with the PACS/Fluency reporting system, reports are being signed by the in house radiologists without review as a courtesy to insure prompt reporting. The interpreting radiologist is fully responsible for the content of the report.
--- NOTE | 2022-04-14 11:16 | RAD REPORT ---
EXAM DESCRIPTION: CT - Chest For Pe Angio - 04/13/2022 6:41 am CLINICAL HISTORY: 61 years Female Pulmonary embolism (PE) suspected, positive D-dimer. TECHNIQUE: Following the administration of intravenous contrast, multiple high-resolution axial imag es of the chest were performed followed by sagittal and coronal reconstructed images. Coronal oblique MIP images were also performed. The CT study is performed according to ALARA (as low as reasonably a chievable) or ALARA/IMAGE GENTLY, with automatic adjustment of mA and/or kV according to patient size . Performed on: 04/13/2022 at 4:22 AM COMPARISON: Chest x-ray performed on 04/13/2022 FINDINGS: There is satisfactory visualization and contrast opacification of pulmonary arteries. No definite intra-arterial filling defects are identified to suggest acute or chronic pulmonary embolis m. The thoracic aorta is normal in caliber and contour without evidence of aneurysm or dissection. Th ere is a common origin of the left common carotid artery and right brachiocephalic artery, a normal d evelopmental variant. The lungs are well expanded and are clear. There is minimal bibasilar atelectasis and/or fibrosis. Th ere is no evidence of a pneumothorax. There are no pleural effusions. The central airways are patent. The heart is mildly enlarged. There is no pericardial effusion. There is no reflux of contrast into t he hepatic veins to suggest right heart strain.The RV/LV ratio is within normal limits. There is no evidence of hilar, mediastinal or axillary lymphadenopathy. No acute osseous abnormality is identified. There is an age indeterminate moderate compression fractu re of L1, likely chronic in nature. There is old healed fracture of the proximal right humerus. There also appears to be at least partial subluxation of the right glenohumeral joint. The visualized upper abdominal structures are unremarkable. IMPRESSION: 1. No CT evidence to suggest acute or chronic pulmonary embolism, aortic aneurysm or a ortic dissection. 2. Minimal bibasilar atelectasis and/or fibrosis. 3. Mild cardiomegaly. 4. Age indeterminate moderate compression fracture of L1, likely chronic in nature. 5. Old healed fracture of the proximal right humerus. There also appears to be at least partial sub luxation of the right glenohumeral joint. Electronically signed by: Heather Eaton DO 04/13/2022 5:02 AM [facility] Due to temporary technical issues with the PACS/Fluency reporting system, reports are being signed by the in house radiologists without review as a courtesy to insure prompt reporting. The interpreting radiologist is fully responsible for the content of the report.
--- NOTE | 2022-04-14 14:47 | P.PN ---
Subjective Date of Service: 04/14/22 Chief Complaint: CHF exacerbation States she feels better than yesterday. She still appears short of breath with speaking. Physical Examination - Vital Signs Temperature: 96.8 F Blood Pressure: 104/64 Pulse: 114 Respirations: 16 Pulse Ox (%): 95 Assessment And Plan - Current Problems (Diagnosis) (1) COPD exacerbation Current Visit: Yes Status: Acute (2) Acute on chronic diastolic heart failure Current Visit: Yes Status: Acute (3) Obstructive sleep apnea Current Visit: Yes Status: Acute (4) Rapid atrial fibrillation Current Visit: Yes Status: Acute (5) Obesity Current Visit: Yes Status: Acute - Plan Physical Exam General: Alert, In no apparent distress, Oriented x3 HEENT: Atraumatic, PERRLA, Mucous membr. moist/pink, EOMI, Sclerae nonicteric Neck: Supple, 2+ carotid pulse no bruit, No LAD, Without JVD or thyroid abnormality Respiratory: Diminished, Crackles/rales Cardiovascular: Normal S1 S2, Edema (3+ pitting edema bilateral lower extremities), Irregular heart rate/rhythm (A. fib, rate controlled) Capillary refill: <2 Seconds Gastrointestinal: Normal bowel sounds, No tenderness Musculoskeletal: No tenderness Integumentary: No rashes Neurological: Normal gait, Normal speech, Normal strength at 5/5 x4 extr, Normal tone, Normal affect Lymphatics: No axilla or inguinal lymphadenopathy Plan: Continue IV Lasix. Bronchodilators Continue steroid Antitussives. Pulmonary and cardiology input appreciated. Wean oxygen. Continue sotalol and Eliquis for A. fib BiPAP at night and during sleep. Monitor and optimize electrolytes.
--- NOTE | 2022-04-14 15:28 | PN ---
Date of Progress Note: 04/14/2022 Subjective: Seen by bedside. Clinically, she is improving. Continues to have significant lower ext remity edema and shortness of breath. Review of Systems: No chest pain, shortness of breath, orthopnea. No cough, nausea, vomiting, diarrhea. No abdominal p ain. No dysuria, polyuria, or urinary urgency. No skin rash, headache. All other systems reviewed and they were negative. Physical Examination: Vital Signs: Temperature is 96.8, pulse is 114, breathing at 16, blood pressure is 104/64, saturatin g 95% on room air. General: Pleasant, middle-aged female, morbidly obese, no apparent distress. Head and Neck: Pupils are equal, reactive to light. Intact eye movements. No JVD. No cervical lym phadenopathy. Neck is supple. Thyroid is not enlarged. Lungs: Decreased breathing sounds with crackles in bases. No accessory muscle use or muscle retract ion. Heart: Irregularly irregular. No extra sounds. Abdomen: Soft, nontender. Bowel sounds positive. No organomegaly. No masses or hernia. No rigidi ty or rebound. Extremities: 3 to 4+ pedal edema bilaterally. No clubbing or cyanosis. Intact pulses. Skin: No rash. Neurologic: Alert, awake, oriented x3. No acute focal deficits appreciated. Investigations: BUN is 20, creatinine 0.87, hemoglobin is 12.8. Assessment And Recommendations: 1.Acute on chronic congestive heart failure exacerbation. She is noted to have normal ejection frac tion. Continue diuretics. I will change the Lasix to twice a day and monitor BUN, creatinine, elect rolytes. Also discontinue Aldactone to allow for further diuresis using intravenous Lasix. 2.Atrial fibrillation. Continue apixaban and Betapace. Use IV metoprolol 5 mg every 1 hour as need ed for rate control if needed. SR/MODL Voice ID: [id number] Report ID: [id number]
[2022-04-14] MEDS: ATORVASTATIN 40 MG TAB PO SCH (20:13)
[2022-04-15] MEDS: FUROSEMIDE 40 MG/4 ML VIAL IV SCH ×3 (00:21→16:45)
[2022-04-15 05:07] LABS: Absolute Lymphocytes (CBC) 0.8 K/uL (0.7-4.9); Hematocrit 37.6 % (36.0-45.0); Lymphocytes % 13.4 % (15.3-44.8); MPV 7.9 fL (7.6-11.3); RBC Red Blood Cell Count 3.36 M/uL (3.86-4.86)
[2022-04-15 05:08] LABS: MCV 111.9 fL (80-100)
[2022-04-15 05:17] LABS: Potassium 3.4 mmol/L (3.5-5.1)
[2022-04-15] MEDS: SOTALOL HCL 80 MG TAB PO SCH ×2 (05:40→16:45)
[2022-04-15] MEDS ORDERED: POTASSIUM CL SA 10 MEQ TAB PO ONE ×2 (06:00→14:51)
[2022-04-15] MEDS: DULERA 200/5 (MOMETASONE/FORMOTEROL) INHALER IH SCH ×3 (08:26→20:31)
[2022-04-15] MEDS: predniSONE 10 MG TAB PO SCH ×2 (08:27→16:44)
[2022-04-15] MEDS: APIXABAN 5 MG TABLET PO SCH ×2 (08:27→20:26)
[2022-04-15] MEDS: SPIRONOLACTONE 25 MG TABLET PO SCH ×2 (08:27→20:26)
[2022-04-15] MEDS: AMLODIPINE 10 MG TAB PO SCH ×2 (08:27→09:00)
[2022-04-15] MEDS: ALBUTEROL 2.5 MG/3 ML NEB SOL NEB PRN ×2 (12:00→20:25)
[2022-04-15] MEDS: IPRATROPIUM BROM 0.5MG/2.5ML NEB PRN ×2 (12:00→20:25)
[2022-04-15 13:10] LABS: Potassium 3.8 mmol/L (3.5-5.1)
--- NOTE | 2022-04-15 14:25 | P.PN ---
Subjective Date of Service: 04/15/22 Chief Complaint: CHF exacerbation Patient states overall her shortness of breath is better compared to admission. She states her legs are still significantly swollen. She denies any pain. She is now tolerating 2 L oxygen by nasal cannula.. Physical Examination - Vital Signs Temperature: 97.6 F Blood Pressure: 98/62 Pulse: 76 Respirations: 16 Pulse Ox (%): 98 Assessment And Plan - Current Problems (Diagnosis) (1) COPD exacerbation Current Visit: Yes Status: Acute (2) Acute on chronic diastolic heart failure Current Visit: Yes Status: Acute (3) Obstructive sleep apnea Current Visit: Yes Status: Acute (4) Rapid atrial fibrillation Current Visit: Yes Status: Acute (5) Obesity Current Visit: Yes Status: Acute - Plan Physical Exam General: Alert, In no apparent distress, morbidly obese. Neck: Supple, no elevated JVD. Respiratory: Diminished, mild scattered expiratory wheezes. Cardiovascular: Normal S1 S2, 3+ pitting edema bilateral lower extremities, Irregular heart rate/rhythm. Gastrointestinal: Normal bowel sounds, No tenderness, obese abdomen. Musculoskeletal: No tenderness Neurological: No focal motor deficit. Plan: Continue IV Lasix 40 mg every 8 hours. Bronchodilators Continue steroid Antitussives. Pulmonary and cardiology are following Continue to wean oxygen. Patient with a history of chronic hypoxia and pulmonary hypertension. She may need home oxygen on discharge. Continue sotalol and Eliquis for A. fib BiPAP at night and during sleep. Monitor and optimize electrolytes.
--- NOTE | 2022-04-15 16:22 | PN ---
Date of Progress Note: 04/15/2022 Subjective: Seen by bedside. She continues to have significant shortness of breath with minimal exe rtion and even at rest with significant lower extremity edema. Review of Systems: There is no chest pain, but has shortness of breath with lower extremity edema and orthopnea. No artem sea, vomiting, diarrhea. No abdominal pain. No dysuria, polyuria, or urinary urgency. All other sy stems reviewed and they were negative. Physical Examination: Vital Signs: Temperature is 97.6, pulse 76, breathing at 16, blood pressure is 98/62. General: This is a pleasant female, morbidly obese, no apparent distress. Head and Neck: Pupils are equal, reactive to light. Intact eye movements. No JVD. No cervical lym phadenopathy. Neck is supple. Thyroid is not enlarged. Lungs: Clear to auscultation, but decreased breathing sounds. Heart: Irregular. No extra sounds. Abdomen: Soft, nontender. Bowel sounds positive. No organomegaly. No masses or hernia. No rigidi ty or rebound. Extremities: 4+ pedal edema, appears to be not improving. Neurologic: Alert, awake, oriented x3. No acute focal deficits appreciated. Lymph Nodes: No cervical or axillary lymphadenopathy. Investigations: BUN 24, creatinine 0.79, and hemoglobin is 12.4. Assessment And Recommendations: 1.Acute on chronic diastolic heart failure exacerbation, massive fluid retention. Recommend to add metolazone 2.5 mg daily and discontinue all antihypertensives including the Aldactone to allow for pr oper diuresis. 2.Dyslipidemia. Continue statin. 3.Atrial fibrillation. Continue sotalol and Eliquis. SR/MODL Voice ID: [id number] Report ID: [id number]
[2022-04-15] MEDS: ATORVASTATIN 40 MG TAB PO SCH (20:27)
[2022-04-16] MEDS: FUROSEMIDE 40 MG/4 ML VIAL IV SCH ×2 (00:48→08:51)
[2022-04-16 04:21] LABS: Absolute Lymphocytes (CBC) 1.2 K/uL (0.7-4.9); Hematocrit 40.9 % (36.0-45.0); Lymphocytes % 20.6 % (15.3-44.8); MPV 8.3 fL (7.6-11.3); RBC Red Blood Cell Count 3.63 M/uL (3.86-4.86)
[2022-04-16 04:23] LABS: MCV 112.4 fL (80-100)
[2022-04-16 04:31] LABS: Potassium 3.5 mmol/L (3.5-5.1)
[2022-04-16] MEDS: SOTALOL HCL 80 MG TAB PO SCH ×2 (05:37→17:07)
[2022-04-16] MEDS ORDERED: POTASSIUM CL SA 10 MEQ TAB PO ONE (06:00)
[2022-04-16] MEDS: predniSONE 10 MG TAB PO SCH ×2 (08:51→16:05)
[2022-04-16] MEDS: APIXABAN 5 MG TABLET PO SCH ×2 (08:51→20:11)
[2022-04-16] MEDS: DULERA 200/5 (MOMETASONE/FORMOTEROL) INHALER IH SCH ×2 (08:51→20:13)
[2022-04-16] MEDS: AMLODIPINE 10 MG TAB PO SCH (08:52)
[2022-04-16] MEDS: SPIRONOLACTONE 25 MG TABLET PO SCH ×2 (09:04→20:11)
[2022-04-16] MEDS: IPRATROPIUM BROM 0.5MG/2.5ML NEB PRN ×2 (14:12→21:05)
[2022-04-16] MEDS: ALBUTEROL 2.5 MG/3 ML NEB SOL NEB PRN ×2 (14:12→21:05)
[2022-04-16] MEDS: METOLAZONE 5 MG TABLET PO SCH (14:56)
[2022-04-16] MEDS: ALBUMIN HUMAN 25% 12.5 GM, FUROSEMIDE 100 MG in NA CHLORIDE 0.9% 40 ML IV SCH ×2 (16:39→20:12)
--- NOTE | 2022-04-16 17:29 | P.PN ---
Subjective Date of Service: 04/16/22 Chief Complaint: CHF exacerbation Patient states she feels much better today. She states her lower extremity swelling improving. She is stable on 2 L oxygen by nasal cannula.. Physical Examination - Vital Signs Temperature: 97.2 F Blood Pressure: 102/67 Pulse: 82 Respirations: 18 Pulse Ox (%): 93 Assessment And Plan - Current Problems (Diagnosis) (1) COPD exacerbation Current Visit: Yes Status: Acute (2) Acute on chronic diastolic heart failure Current Visit: Yes Status: Acute (3) Obstructive sleep apnea Current Visit: Yes Status: Acute (4) Rapid atrial fibrillation Current Visit: Yes Status: Acute (5) Obesity Current Visit: Yes Status: Acute - Plan Physical Exam General: In no apparent distress, morbidly obese. Neck: Supple, no elevated JVD. Respiratory: Diminished, mild scattered expiratory wheezes. Cardiovascular: Normal S1 S2, 3+ pitting edema bilateral lower extremities, Irregular heart rate/rhythm. Gastrointestinal: Normal bowel sounds, No tenderness, obese abdomen. Musculoskeletal: No tenderness Neurological: No focal motor deficit. Plan: Continue IV Lasix 40 mg every 8 hours. Nephrology input and cardiology input appreciated. Aldactone and metolazone added. Continue bronchodilators Continue oral prednisone Keep lower extremities elevated Pulmonary input appreciated. Continue to wean oxygen. She may need home oxygen on discharge. Continue sotalol and Eliquis for A. fib BiPAP at night and during sleep. Monitor and optimize electrolytes.
--- NOTE | 2022-04-16 17:40 | CON ---
Date of Consultation: 04/16/2022 Reason For Consultation: Tarsha. History Of Present Illness: This is a pleasant 61-year-old female with significant past medical history of CAD complicated with congestive heart failure, hypertension, hyperlipidemia, obstructive sleep apnea, COPD, the patient was in her regular state of health, brought to the hospital complaining from leg swelling and increased shortness of breath, difficulty ambulating. The patient has been on diuresis. Primary workup showed CHF exacerbation. The patient on the diuresis for the last few days, but not achieving good dry weight. For that reason, we have been consulted. Kidney function has been stable, within normal range. The patient had CT with contrast to evaluate if there is any PE given the shortness of breath, which turned to be no PE, but had marginal cardiomegaly. Past Medical History: Includes; 1. COPD. 2. Obstructive sleep apnea. 3. Hypertension. 4. Hyperlipidemia. 5. Cellulitis. 6. Congestive heart failure, diastolic dysfunction. 7. Atrial fibrillation. Past Surgical History: Includes; 1. Hip and ankle surgery. 2. . Family History: Positive for cancer and hypertension. Social History: Ex-smoker. Active alcohol. Denied drug abuse. Allergies: NO KNOWN DRUG ALLERGIES. Home Medications: Include Tylenol, amlodipine, Lasix 40, atorvastatin, Singulair, spironolactone, and acetazolamide. Review of Systems: Head and Neck: No red eye. No ear pain. GI: No nausea. No vomiting. : No polyuria. No dysuria. No hematuria. 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 Respiratory: Has shortness of breath. Cardiovascular: Has orthopnea. Has leg swelling. Endocrine: No polydipsia. Skin: No rash. Neuro: Has neuropathy. Musculoskeletal: Has joint pain. Physical Examination: Vital Signs: When I saw the patient; blood pressure 105/70, pulse of 90, afebrile. The patient had good urine output of around 700, but still positive balance. Chest: Decreased entry bilateral base. Heart: S1, S2. Systolic murmur. Regular. Abdomen: Soft, nontender. Morbidly obese. Extremity: +3 edema with venous stasis change. Neuro: Alert. No focality. Laboratory Data: Echocardiogram done in October 2021, ejection fraction of 64, mild tricuspid regurgitation. The patient seen by Cardiology, suspect exacerbation of CHF. Sodium 140, potassium 3.5, bicarb 36, BUN 22, creatinine 0.8, calcium 8.9. WBC 5.9, H and H 13.5/40.9. Urine; specific gravity not done yet. Chest x-ray; cardiomegaly with congestion. Echocardiogram; diastolic dysfunction, normal ejection fraction. Current Medications: Eliquis, atorvastatin, sotalol, furosemide 40 t.i.d., metolazone 5 mg, pantoprazole, KCl. Assessment And Plan: 1. Anasarca mostly secondary to cardiorenal with pulmonary hypertension with marginal low blood pressure. I am going to start the patient on Lasix drip to avoid any hypotension and we will monitor the patient. I am going to go ahead and send for protein creatinine and TSH. We will place the patient on fluid restriction. 2. Hypertension. We will utilize blood pressure for more diuresis. We will switch to Lasix drip. Resume spironolactone. 3. Congestive heart failure with exacerbation as above. 4. Atrial fibrillation by Cardiology. 5. Morbid obesity as by primary. Continue to follow up with Pulmonary. Time spent examining the patient [id number] reviewing data lab and radiology discussing the case with the patient placing order discussing the case with the java development team lead including nursing discussing the case with the hospitalist more than 35-minute MALLIKA Voice ID: [id number] Report ID: [id number] MTDD
--- NOTE | 2022-04-16 17:55 | PN ---
Date of Progress Note: 04/16/2022 Subjective: Seen by bedside. Continues to be short of breath. Lower extremity edema is not improvi ng. Review of Systems: No chest pain. Has shortness of breath with activities and lower extremity edema. No nausea, vomiti ng, diarrhea. No abdominal pain. No dysuria, polyuria, or urinary urgency. All other systems revie wed and they are negative. Physical Examination: Vital Signs: Temperature is 97.2, pulse 90, breathing at 18, blood pressure 105/70, saturating 96%. General: Pleasant, middle-aged female, morbidly obese, no apparent distress. Head and Neck: Pupils are equal, reactive to light. Intact eye movements. No JVD. No cervical wenceslao nopathy. Neck is supple. Thyroid is not enlarged. Lungs: Clear to auscultation bilaterally. No rhonchi, rales, or crackles. No accessory muscle use. Heart: Regular rate and rhythm. No extra sounds. Abdomen: Soft, nontender. Bowel sounds positive. No organomegaly. No masses or hernia. No rigidi ty or rebound. Extremities: 4+ pedal edema bilaterally. No clubbing or cyanosis. Intact pulses. Skin: No rashes or nodules. Neurologic: Alert, awake, oriented x3. No focal deficits appreciated. Investigations: BUN is 22, creatinine 0.81, and hemoglobin is 13.5. Assessment/recommendations: 1.Acute on chronic diastolic heart failure exacerbation. Still severely fluid overloaded. She is n ot losing fluids, but she is drinking a lot of soda. She was counseled against soda drinking and I w ill add metolazone 5 mg daily and discontinue Aldactone, discontinue amlodipine to diurese the patient in an effective way. 2.Atrial fibrillation. It is controlled. Continue sotalol, Eliquis. SR/MODL Voice ID: [id number] Report ID: [id number]
[2022-04-16 18:43] LABS: Specific Gravity 1.013 (1.005-1.030); Urine Bilirubin NEGATIVE (Negative); Urine Blood Negative (Negative); Urine Clarity Clear (Clear); Urine Color Light-Yellow (Yellow); Urine Glucose NEGATIVE (Negative); Urine Protein NEGATIVE (Negative); Urine Urobilinogen Normal (Normal)
[2022-04-16] MEDS: ATORVASTATIN 40 MG TAB PO SCH (20:11)
[2022-04-17] MEDS: ALBUMIN HUMAN 25% 12.5 GM, FUROSEMIDE 100 MG in NA CHLORIDE 0.9% 40 ML IV SCH ×3 (02:47→12:00)
[2022-04-17 04:15] LABS: Albumin 4.1 g/dL (3.4-5.0); Magnesium 1.9 mg/dL (1.6-2.4); Phosphorus 3.8 mg/dL (2.5-4.9); Thyroid Stimulating Hormone 2.58 uIU/mL (0.358-3.740); Uric Acid 11.4 mg/dL (2.6-6.0)
[2022-04-17] MEDS ORDERED: POTASSIUM CL SA 10 MEQ TAB PO ONE ×2 (05:45→17:00)
[2022-04-17] MEDS: SOTALOL HCL 80 MG TAB PO SCH ×2 (06:15→16:45)
[2022-04-17] MEDS: APIXABAN 5 MG TABLET PO SCH ×2 (08:48→21:20)
[2022-04-17] MEDS: METOLAZONE 5 MG TABLET PO SCH (08:48)
[2022-04-17] MEDS: DULERA 200/5 (MOMETASONE/FORMOTEROL) INHALER IH SCH ×2 (08:49→21:21)
[2022-04-17] MEDS: SPIRONOLACTONE 25 MG TABLET PO SCH ×2 (08:49→21:20)
[2022-04-17] MEDS: predniSONE 10 MG TAB PO SCH ×2 (08:49→16:45)
[2022-04-17] MEDS: IPRATROPIUM BROM 0.5MG/2.5ML NEB PRN ×2 (12:00→22:45)
--- NOTE | 2022-04-17 14:51 | P.PN ---
Subjective Date of Service: 04/17/22 Chief Complaint: CHF exacerbation Subjective: Other (Reports no inc in SOB.) Physical Examination - Vital Signs Temperature: 97.3 F Blood Pressure: 125/69 Pulse: 100 Respirations: 17 Pulse Ox (%): 90 - Physical Exam General: Other (appears as her stated age) HEENT: Atraumatic, Normocephalic Neck: Supple, JVD not distended Respiratory: Other (symmetric chest expansion) Cardiovascular: No rubs, No murmurs Gastrointestinal: Soft and benign, No guarding Musculoskeletal: No clubbing Integumentary: No warmth Neurological: Normal speech, Normal tone Urinary: Other (no bladder distention) External genitalia: Deferred Rectal: Deferred Assessment And Plan - Plan # Acute on chronic CHF, pulmo Htn Lasix 40 mg po bid + erum 50 mg po bid Low Na diet Do not restrict po fluid intake # Metabolic alkalosis + respi acidosis Diamox 500 mg IV q8h x 3 doses # HypoK KCl repletion today Increase erum dosing as above # Htn Cont current med regimen # Afib Per Cardiology # Morbid obesity Per other services
[2022-04-17 16:00] LABS: Arterial Blood Carboxyhemoglob 1.4 % (0-1.5); Blood Gas Oxyhemoglobin 93.5 % (94-97)
--- NOTE | 2022-04-17 19:25 | P.PN ---
Subjective Date of Service: 04/17/22 Chief Complaint: CHF exacerbation Patient diuresed a lot with the Lasix drip and albumin infusions. Recorded urine output 7000, negative fluid balance of 5000. Bilateral lower extremity edema have improved significantly. Oxygen saturation is borderline on 2 L oxygen by nasal cannula. Physical Examination - Vital Signs Temperature: 97.5 F Blood Pressure: 123/62 Pulse: 97 Respirations: 18 Pulse Ox (%): 91 Assessment And Plan - Current Problems (Diagnosis) (1) COPD exacerbation Current Visit: Yes Status: Acute (2) Acute on chronic diastolic heart failure Current Visit: Yes Status: Acute (3) Obstructive sleep apnea Current Visit: Yes Status: Acute (4) Rapid atrial fibrillation Current Visit: Yes Status: Acute (5) Obesity Current Visit: Yes Status: Acute - Plan Physical Exam General: In no apparent distress, morbidly obese. Neck: Supple, no elevated JVD. Respiratory: Diminished. Cardiovascular: Normal S1 S2, 2+ pitting edema bilateral lower extremities, Irregular heart rate/rhythm. Gastrointestinal: Normal bowel sounds, No tenderness, obese abdomen. Musculoskeletal: No tenderness Neurological: No focal motor deficit. Plan: Lasix drip held today due to signs of dehydration with elevated uric acid. Patient also with combined metabolic alkalosis and respiratory acidosis. Albumin infusions on hold. Nephrology input and cardiology are following. Continue Aldactone. Metolazone on hold due to alkalosis. Continue bronchodilators Continue oral prednisone Keep lower extremities elevated Seen by pulmonary. Continue to wean oxygen. Arrange for home oxygen on discharge. Recommending BiPAP overnight to treat respiratory acidosis. Continue sotalol and Eliquis for A. fib Monitor and optimize electrolytes. Renal function has been stable with diuresis so far. Monitor renal function.
[2022-04-17] MEDS: ATORVASTATIN 40 MG TAB PO SCH (21:21)
[2022-04-17] MEDS: ALBUTEROL 2.5 MG/3 ML NEB SOL NEB PRN (22:45)
[2022-04-18 04:37] LABS: Albumin 4.1 g/dL (3.4-5.0); Magnesium 2.1 mg/dL (1.6-2.4); Phosphorus 3.9 mg/dL (2.5-4.9); Potassium 3.2 mmol/L (3.5-5.1)
[2022-04-18] MEDS ORDERED: WATER FOR INJ,STERILE 10 ML ONE ×2 (06:44→22:11)
[2022-04-18] MEDS: SOTALOL HCL 80 MG TAB PO SCH ×2 (06:44→17:32)
[2022-04-18] MEDS: ACETAZOLAMIDE 500 MG IV IV SCH ×4 (06:45→22:24)
[2022-04-18] MEDS: FUROSEMIDE 40 MG TABLET PO SCH ×2 (08:45→17:32)
[2022-04-18] MEDS: predniSONE 10 MG TAB PO SCH (08:46)
[2022-04-18] MEDS: APIXABAN 5 MG TABLET PO SCH ×2 (08:46→20:59)
[2022-04-18] MEDS: SPIRONOLACTONE 25 MG TABLET PO SCH ×2 (08:46→21:00)
[2022-04-18] MEDS: DULERA 200/5 (MOMETASONE/FORMOTEROL) INHALER IH SCH (08:47)
[2022-04-18] MEDS ORDERED: POTASSIUM CL SA 10 MEQ TAB PO ONE (09:00)
[2022-04-18] MEDS: IPRATROPIUM BROM 0.5MG/2.5ML NEB PRN (09:05)
[2022-04-18] MEDS: ARFORMOTEROL TARTRATE 15 MCG/2 ML VIAL.NEB NEB SCH ×2 (11:36→19:50)
--- NOTE | 2022-04-18 11:36 | P.PN ---
Subjective Date of Service: 04/18/22 Chief Complaint: CHF exacerbation respiratory failure Patient is stable at rest has dyspnea on very minimal exertion patient has CPAP at home sleep apnea Review of Systems General: Weakness Respiratory: Shortness of Breath Physical Examination - Vital Signs Temperature: 97.3 F Blood Pressure: 125/69 Pulse: 100 Respirations: 17 Pulse Ox (%): 90 - Physical Exam General: Alert, Mild distress Respiratory: Clear to auscultation bilaterally, Diminished Cardiovascular: Normal S1 S2, Edema Gastrointestinal: Normal bowel sounds, Soft and benign Assessment And Plan - Current Problems (Diagnosis) (1) Diastolic heart failure Current Visit: Yes Status: Acute Plan: Patient admitted with the heart failure chronic respiratory failure patient is becoming increasingly alkalotic I suspect suspect is from diuresis patient is currently on Lasix Diamox spironolactone ordered another chest x-ray vital signs blood pressure stable continue nebulized Brovana chest x-ray ordered Qualifiers: Heart failure chronicity: acute on chronic Qualified Code(s): I50.33 - Acute on chronic diastolic (congestive) heart failure
--- NOTE | 2022-04-18 13:58 | RAD REPORT ---
EXAM DESCRIPTION: RAD - Chest Single View - 04/18/2022 1:49 pm CLINICAL HISTORY: Respiratory distress COMPARISON: Chest Single View dated 04/13/2022; Chest Single View dated 10/14/2021; Chest Single View d ated 10/09/2021; Chest For Pe Angio dated 04/13/2022 FINDINGS: Lines: None. Lungs: No evidence of edema or pneumonia. Pleural: No significant pleural effusions or pneumothorax. Cardiac: Cardiomegaly. Mediastinum: Within normal limits. Bones: No acute fractures. Other: None IMPRESSION: No acute cardiopulmonary disease.
--- NOTE | 2022-04-18 13:58 | P.PN ---
Subjective Date of Service: 04/18/22 Chief Complaint: CHF exacerbation respiratory failure Patient reports urinating a lot overnight. Bilateral lower extremity edema continue to improve. She reports fatigue. Physical Examination - Vital Signs Temperature: 96.9 F Blood Pressure: 114/68 Pulse: 68 Respirations: 17 Pulse Ox (%): 99 Assessment And Plan - Current Problems (Diagnosis) (1) COPD exacerbation Current Visit: Yes Status: Acute (2) Acute on chronic diastolic heart failure Current Visit: Yes Status: Acute (3) Obstructive sleep apnea Current Visit: Yes Status: Acute (4) Rapid atrial fibrillation Current Visit: Yes Status: Acute (5) Obesity Current Visit: Yes Status: Acute - Plan Physical Exam General: In no apparent distress, morbidly obese. Neck: Supple, no elevated JVD. Respiratory: Diminished. Cardiovascular: Normal S1 S2, 2+ pitting edema bilateral lower extremities, Irregular heart rate/rhythm. Gastrointestinal: Normal bowel sounds, No tenderness, obese abdomen. Musculoskeletal: No tenderness Neurological: No focal motor deficit. Plan: Lasix drip held today due to signs of dehydration with elevated uric acid. Patient also with combined metabolic alkalosis and respiratory acidosis. Albumin infusions held. Patient started on Diamox per nephrology. Nephrology input and cardiology are following. Continue Aldactone. Metolazone discontinued due to alkalosis. Continue bronchodilators. Brovana added by pulmonary Continue oral prednisone Keep lower extremities elevated Continue to wean oxygen. Arrange for home oxygen on discharge. BiPAP overnight to treat respiratory acidosis. Recommend to use minimal FiO2 to keep oxygen saturation between 88% to 92% Continue sotalol and Eliquis for A. fib Monitor and optimize electrolytes and replace as needed. Stable renal function.
[2022-04-18] MEDS ORDERED: WATER FOR INJECTION,STERILE 5 ML ONE (15:13)
--- NOTE | 2022-04-18 16:01 | P.PN ---
Subjective Date of Service: 04/18/22 Chief Complaint: CHF exacerbation respiratory failure Subjective pt feels better Bicarb elevated to 42, ABG metabolic alkalosis lasix reduced cont Diamox for one more day General: AAOx3, , obese HEENT PERRLA, moist mucose membrane neck: supple, no elevated JVD CHEST; dimnished air entry B/l HEART : RRR. Normal S1,2 no murmur or rub Abd: soft, Nt Ext: no edema, wrinkled skin Skin : No rash # Acute on chronic CHF, pulmo Htn Lasix 40 mg po bid + erum 50 mg po bid Low Na diet Do not restrict po fluid intake # Metabolic alkalosis + respi acidosis Cont diamox potassium replacement # HypoK due to diurtics and alkalosis KCl repletion today Increase erum dosing as above # Htn Cont current med regimen # Afib Per Cardiology # Morbid obesity Per other services Physical Examination - Vital Signs Temperature: 96.9 F Blood Pressure: 114/68 Pulse: 68 Respirations: 17 Pulse Ox (%): 99
[2022-04-18] MEDS: ATORVASTATIN 40 MG TAB PO SCH (20:59)
[2022-04-19 04:00] LABS: Albumin 4.3 g/dL (3.4-5.0); Magnesium 2.3 mg/dL (1.6-2.4); Phosphorus 4.9 mg/dL (2.5-4.9)
[2022-04-19] MEDS ORDERED: POTASSIUM CL SA 10 MEQ TAB PO ONE (06:11)
[2022-04-19] MEDS: SOTALOL HCL 80 MG TAB PO SCH ×2 (06:38→18:00)
[2022-04-19] MEDS: ARFORMOTEROL TARTRATE 15 MCG/2 ML VIAL.NEB NEB SCH (08:30)
[2022-04-19] MEDS: IPRATROPIUM BROM 0.5MG/2.5ML NEB PRN (08:30)
[2022-04-19] MEDS: APIXABAN 5 MG TABLET PO SCH (08:32)
[2022-04-19] MEDS: SPIRONOLACTONE 25 MG TABLET PO SCH (08:32)
[2022-04-19] MEDS: FUROSEMIDE 40 MG TABLET PO SCH ×2 (08:33→17:00)
--- NOTE | 2022-04-19 08:35 | RAD REPORT ---
EXAM DESCRIPTION: Gus Single View04/19/2022 7:04 am CLINICAL HISTORY: Respiratory distress COMPARISON: October 16, 2022 FINDINGS: Areas of subsegmental atelectasis within the lung bases. Upper lobes are clear. Heart remains enlarged
[2022-04-19] MEDS ORDERED: predniSONE 10 MG TAB PO SCH (09:00)
[2022-04-19 09:17] VITALS: O2SAT 97
[2022-04-19 13:33] VITALS: BP 120/80; TEMP 97
--- NOTE | 2022-04-19 13:54 | P.DS ---
Admission Date: 04/13/22 Discharge Date: 04/19/22 Disposition: DC HOME/HOME HEALTH CARE Discharge Condition: FAIR Reason for Admission: CHF exacerbation respiratory failure - Problems (1) COPD exacerbation Current Visit: Yes Status: Acute (2) Acute on chronic diastolic heart failure Current Visit: Yes Status: Acute (3) Obstructive sleep apnea Current Visit: Yes Status: Acute (4) Rapid atrial fibrillation Current Visit: Yes Status: Acute (5) Obesity Current Visit: Yes Status: Acute Brief History of Present Illness: 61-year-old female with history of atrial fibrillation on chronic anticoagulation therapy, chronic diastolic congestive heart failure, COPD, hypertension, hyperlipidemia, hypothyroidism, DARIO presented to the emergency department for shortness of breath, lower extremity edema. She reported she noticed increased welling to lower extremities over the course of the last 1 month but began to become much more short of breath over the course of last 24 to 48 hours. She was short of breath at rest but especially with ambulation, she could barely walk to the bathroom. She was hypoxic on room air saturating in the mid 80s. Her labs in the ER were significant for BNP 713 T bili 1.2. She was noncompliant with Eliquis. Patient admitted for further management. Hospital Course: Patient admitted to the medical floor and treated with IV Lasix. She was seen by nephrology and cardiology recommended medical management. She received Lasix drip and IV albumin infusion which caused her to diarrhea is significantly with large fluid deficit. Lasix drip was later held due to signs of dehydration with elevated uric acid. Patient also noted to have combined metabolic alkalosis and respiratory acidosis so Lasix was replaced with Diamox. She received a dose of metolazone which was later discontinued due to alkalosis. Continued Aldactone during the hospital stay. Patient also seen by pulmonary and COPD treated with Brovana and steroid. She required 6 L of oxygen by nasal cannula initially. This was weaned down to 2 L which is her baseline oxygen requirement She was on BiPAP BiPAP during sleep and at night. Patient states she has CPAP at home. Continued sotalol and Eliquis for A. fib Patient's leg edema significantly improved, she feels her respiratory condition is back to baseline. Alkalosis improved. Okay to discharge per nephrology. Vitals are stable for discharge. Please see medication reconciliation for new medications prescribed on discharge. Vital Signs/Physical Exam: Temp Pulse Resp BP Pulse Ox 97 F 75 18 120/80 94 04/19/22 12:00 04/19/22 12:00 04/19/22 12:00 04/19/22 12:00 04/19/22 12:00 General: Alert, In no apparent distress, Obese Neck: JVD not distended Respiratory: Diminished, Other (No crackles) Cardiovascular: Normal S1 S2, Edema (Bilateral lower extremity, worse on the left. Edema has significantly improved.), Irregular heart rate/rhythm Gastrointestinal: Soft and benign, Non-distended Musculoskeletal: No tenderness, Swelling (Bilateral legs) Integumentary: No cyanosis Neurological: Normal strength at 5/5 x4 extr Lymphatics: Other (Bilateral lower extremity lymphedema) Laboratory Data at Discharge: WBC 5.90 K/uL (4.3-10.9) 04/16/22 03:35 Hgb 13.5 g/dL (12.0-15.0) D 04/16/22 03:35 Hct 40.9 % (36.0-45.0) 04/16/22 03:35 Plt Count 283 K/uL (152-406) 04/16/22 03:35 Sodium Cancelled 04/19/22 Unknown Potassium Cancelled 04/19/22 Unknown BUN Cancelled 04/19/22 Unknown Creatinine Cancelled 04/19/22 Unknown Glucose Cancelled 04/19/22 Unknown Uric Acid 11.4 mg/dL (2.6-6.0) H 04/17/22 03:22 Phosphorus 4.9 mg/dL (2.5-4.9) 04/19/22 03:29 Magnesium 2.3 mg/dL (1.6-2.4) 04/19/22 03:29 Total Bilirubin 1.2 mg/dL (0.2-1.0) H 04/13/22 01:05 AST 57 U/L (15-37) H 04/13/22 01:05 ALT 51 U/L (13-56) 04/13/22 01:05 Alkaline Phosphatase 61 U/L (45-117) 04/13/22 01:05 Home Medications: Acetaminophen [Tylenol Extra Strength] 500 mg PO PRN 10/10/21 Furosemide 40 mg PO DAILY 10/10/21 Atorvastatin Calcium [Lipitor] 40 mg PO BEDTIME #30 tab 10/13/21 Mometasone/Formoterol [Dulera 200 Mcg/5 Mcg Inhaler] 2 puff IH BID #1 inhaler 10/13/21 Sotalol HCl [Betapace*] 80 mg PO BID 6AM 6PM #60 tab 10/13/21 Spironolactone [Aldactone*] 25 mg PO BID #60 tab 10/13/21 Albuterol Neb [Proventil 0.083% Neb Soln] 2.5 mg NEB [id number] PRN #120 amp 04/19/22 Apixaban [Eliquis] 5 mg PO BID #60 tab 04/19/22 Benzonatate [Tessalon Perle*] 100 mg PO TID PRN #30 cap 04/19/22 Furosemide [Lasix*] 40 mg PO BIDL #60 tab 04/19/22 Ipratropium Neb [Atrovent*] 0.5 mg NEB [id number] PRN #120 amp 04/19/22 Spironolactone [Aldactone*] 50 mg PO BID #60 tab 04/19/22 predniSONE [Deltasone*] 10 mg PO DAILY #7 tab 04/19/22 New Medications: Ipratropium Neb [Atrovent*] 0.5 mg NEB [id number] PRN #120 amp PRN Reason: Wheezing Albuterol Neb [Proventil 0.083% Neb Soln] 2.5 mg NEB [id number] PRN #120 amp PRN Reason: Shortness Of Breath Spironolactone [Aldactone*] 50 mg PO BID #60 tab predniSONE [Deltasone*] 10 mg PO DAILY #7 tab Apixaban [Eliquis] 5 mg PO BID #60 tab Furosemide [Lasix*] 40 mg PO BIDL #60 tab Benzonatate [Tessalon Perle*] 100 mg PO TID PRN #30 cap PRN Reason: Cough Diet: AHA Activity: Ad vel Followup: Ginette Morse MD [ACTIVE - CAN ADMIT] - 1 Week Unknown,U [Primary Care Provider] - 1-2 Weeks Time spent managing pt's care (in minutes): 38
--- NOTE | 2022-04-19 13:57 | P.PN ---
Subjective Date of Service: 04/19/22 Chief Complaint: CHF exacerbation respiratory failure Subjective pt feels better Bicarb elevated to 38 , feeling much better can be discharged from nephrology point of view General: AAOx3, , obese HEENT PERRLA, moist mucose membrane neck: supple, no elevated JVD CHEST; dimnished air entry B/l HEART : RRR. Normal S1,2 no murmur or rub Abd: soft, Nt Ext: no edema, wrinkled skin Skin : No rash # Acute on chronic CHF, pulmo Htn Lasix 40 mg po bid + erum 50 mg po bid Low Na diet Do not restrict po fluid intake # Metabolic alkalosis + respi acidosis improving potassium replacement # HypoK due to diurtics and alkalosis KCl repletion today # Htn Cont current med regimen # Afib Per Cardiology # Morbid obesity Per other services Pt can be discharged on Po lasix and aldactone, follow with nephrology clinic in 1-2wks Physical Examination - Vital Signs Temperature: 97 F Blood Pressure: 120/80 Pulse: 75 Respirations: 18 Pulse Ox (%): 94
== END 2022-04-19 19:45 | disposition home health service (06) | DRG 291 ==
LOC: ER 00:01 → ERHOLD 03:34 → 4TH 04:05
PROVIDERS: ADMIT Hospitalist; ATTEND Internal Medicine
PROC: 5A09357 Assistance with Respiratory Ventilation, Less than 24 Consecutive Hours, Continuous Positive Airway Pressure (ICD-10-PCS; principal; 2022-04-17)
DX: I11.0 Hypertensive heart disease with heart failure (principal); I50.33 Acute on chronic diastolic (congestive) heart failure; J96.21 Acute and chronic respiratory failure with hypoxia; J44.1 Chronic obstructive pulmonary disease with (acute) exacerbation; Z68.43 Body mass index [BMI] 50.0-59.9, adult; E87.4 Mixed disorder of acid-base balance; Z99.81 Dependence on supplemental oxygen; G47.33 Obstructive sleep apnea (adult) (pediatric); I48.91 Unspecified atrial fibrillation; Z79.01 Long term (current) use of anticoagulants; E78.5 Hyperlipidemia, unspecified; E03.9 Hypothyroidism, unspecified; E66.01 Morbid (severe) obesity due to excess calories; I25.10 Atherosclerotic heart disease of native coronary artery without angina pectoris; I27.20 Pulmonary hypertension, unspecified; E87.6 Hypokalemia
CPT/HCPCS: 36415; 71045; 71275; 80048; 80053; 80069; 81003; 82805; 83735; 83880; 84132; 84439; 84443; 84484; 84550; 85025; 85379; 87811; 93005; 94010; 94640; 94660; 94760; 96374; 96375; 99285; J1120; J1940; J2930; J3535; J7512; J7605; J7613; J7644; P9047; Q9967

== ENCOUNTER 2022-11-17 18:50 | Inpatient (IN) | payer BC ==
--- OUTSIDE RECORDS SUMMARY | 2022-11-17 18:53 | XMS REPORT | Continuity of Care Document ---
:1960 Author Organization [facility] t Address [address] [place] [address] Care Team Providers Name Role Phone Prakash_S Attending Clinician Unavailable Prakash_S Admitting Clinician Unavailable Payers Payer Name Policy Type Policy Number Effective Date Expiration Date Gogo FREGOSO [id number] Problems This patient has no known problems. Allergies, Adverse Reactions, Alerts Allergy Allergy Status Severity Reaction(s) Onset Inactive Treating Comm ents Source Name Type Date Date Clinician No Known DA Active U 2018-0 [facility] [place] [facility] No Known DA Active U 2018-0 [facility] [place] Medications This patient has no known medications. Procedures This patient has no known procedures. Encounters Start End Encounter Admission Attending Care Care Encounter Source Date/Time Date/Time Type Type Clinicians Facility Department ID 2022-09-03 2022-09-03 Outpatient Prakash_S VFP VFP [id number] 90-20 [facility] 00:00:00 00:00:00 [id number] Family Practic e Results Test Description Test Time Test Comments [...] of measure: mL/min/1.73 (test code = GFR) [id number] e Range:Healthy Adults >90 mL/m in/1.73 m2 For Chronic Kidney Disease: Stage II Mild Decreas e in GFR 60-90 Stage III Moder ate Decrease in GFR 30-59 St age IV Severe Decrease in GFR 15-29 Stage V Kidney Failure <15 CREATININE (test code = CREAT) 0.85 mg/dL 0.55-1.30 N CALCIUM (test code = CA) 8.8 mg/dL 8.2-10.1 N - XR PELVIS 1/2 [id number] 07:17:00 Patient Name: LORAINE CHUN Unit No: [id number] EXAMS: CPT CODE: [id number] XR PELVIS 1/2 VIEWS 58205 INTRAOPERATIVE LEG LENGTH FILM COMMENT: COMPARISON: No prior exams available. In progress right hip replacement is noted. AP PORTABLE RIGHT HIP COMMENT: The patient is status post joint replacement which is articulating normally. at 0717 Reported and signed by: Kelby Fierro MD CC: Gordon Benitez Technologist: ARABELLA PARK RT(R) Transcribed D/ (0717) tEMILIE [facility] NAME: LORAINE CHUN [address] PHYS: Gordon Hayes : 1960 AGE: 57 SEX: F [place], [place] [address] LOC: Y.322 A PHONE #: [phone] EXAM DATE: 07/14/2018 STATUS: ADM IN FAX#: [phone] RAD #: D/C DT PAGE 1 Signed Report Patient Name: LORAINE CHUN Unit No: [id number] EXAMS: CPT CODE: [id number] XR PELVIS 1/2 VIEWS 76794 (Continued) Orig Print D/T: S: 07/15/2018 (1027) [facility] NAME: LORAINE CHUN [facility] PHYS: Gordon Hayes : 1960 AGE: 57 SEX: F [place], [place] [address] LOC: Y.322 A PHONE #:[phone] EXAM DATE: 07/14/2018 STATUS: ADM IN FAX #: [phone] RAD #: D/C DT PAGE 2 Signed Report- XR PELVIS 1/2 [id number] 07:17:00 Patient Name: LORAINE CHUN Unit No: [id number] EXAMS: CPT CODE: [id number] XR PELVIS 1/2 VIEWS 34464 INTRAOPERATIVE LEG LENGTH FILM COMMENT: COMPARISON: No prior exams available. In progress right hip replacement is noted. AP PORTABLE RIGHT HIP COMMENT: The patient is status post joint replacementwhich is articulating normally. at 0717 Reported and signed by: Kelby Fierro MD CC: Gordon Benitez Technologist: ARABELLA PARK RT(R) Transcribed D/ (0717) Justin [facility] NAME: LORAINE CHUN [facility] PHYS: Gordon Hayes : 1960 AGE: 57 SEX: F [place], [place] [address] LOC: Y.322 A PHONE #: [phone] EXAM DATE: 07/14/2018 STATUS: ADM IN FAX #: [phone] RAD #: D/C DT PAGE 1 Signed Report Patient Name: LORAINE CHUN Unit No: [id number] EXAMS: CPT CODE: [id number] XR PELVIS 1/2 VIEWS 01800 (Continued) Orig Print D/T: S: 07/15/2018 (1027) [facility] NAME: LORAINE CHUN [facility] PHYS: Gordon Hayes : 1960 AGE: 57 SEX: F [place], [place] [address] LOC: YAkiko A PHONE #: [phone] EXAM DATE: 07/14/2018 STATUS: ADM IN FAX #: [phone] RAD #: D/C DT PAGE 2 Signed Rep ortHGB [id number] 05:53:00 Test Item Value Reference Range Interpretation Comments HEMOGLOBIN (test code = HGB) 13.3 g/dL 12-16 N HEMATOCRIT (test code = HCT) 39.8 % 37-47 N AB HIV 20:55:00 Test Item Value Reference Range Interpretation Comments AB HIV 1 (test code NONREACTIVE NONREACTIVE DONE AT: [facility] = HIV1AB) [facility] [address] [place], [place] [address]Done by [employer] 4th Gen HIV Ag/Ab C ombo Screen AB HIV 1 20:55:00 Test Item Value Reference Range Interpretation Comments AB HIV 1 2 (test NONREACTIVE NONREACTIVE Done by Sie [employer] code = [id number]) 4th Gen HIV Ag/Ab Combo Screen COMPREHENSIVE METABOLIC [id number] 18:08:00 Test Item Value Reference Range Interpretation [...] RATE (test code = GFR) mL/mi n/1.73 [id number] Range:Healthy Adults >90 mL/min/1.73 m2 For Chronic [...] N TOTAL (test code = ALKP) PROTHROMBIN [id number] 17:53:00 Test Item Value Reference Range Interpretation [...] Patient is on Heparin Drip? NOTHROMBOPLASTIN TIME [id number] 17:53:00 Test Item Value Reference Range Interpretation Comments PTT ACTIVATED (test code = APTT) 31.2 secs 24.9-37.0 N IS PATIENT ON ANTICOAGULANTS ? YLIST ANTICOAGULANT/ANTI PLT MEDICATION : AspirinHas Lab been notified if Patient is on Heparin Drip? NOURINALYSIS [id number] 17:40:00 Test Item Value Reference Range Interpretation [...] NONE A code = BACU) CBC W/AUTO [id number] 17:30:00 Test Item Value Reference Range Interpretation [...] 0 % 0-0 N code = NRBC) Notes Date/Time Note Provider Source 2018-07-15 09:43:00-00:00 [facility] Clinical Note REPORT#:[id number] REPORT STATUS: Signed DATE:07/15/18 TIME: 942 PATIENT: LORAINE CHUN UNIT #: [id number] ROOM/BED: [address] : [birth year] AGE: 57 SEX: F ATTEND: Luis Benitez MD ADM AUTHOR: Anshul Villarreal MD * ALL edits or amendments must be made on the el ectronic/computer document * Clinical Note Note: [facility] Anshul gonsalez M.D. (cell text [phone]) Assessment/Plan 1.) Anemia of acute blood loss- .hgb 13.3, asymp tomatic. 2.) S/p Right ALVIN- .acute pain control. Anticoag ulation as per Dr. Benitez. 3.) Hypertension- .follow BP and hold Rxs if SBP <120. 4.) COPD DARIO- .continue on Rx. * OK for DISCHARGE per Internal Medicine. Prior Events/Overnight: Uneventful. Chief Complaint: No significant complaints. Objective Vital Signs Date Temp Pulse Resp B/P B/P Mean Pulse Ox FiO2 07/14-07/15 96.6-97.8 63-90 14-20 99-166/55-78 70-105 95-100 32-40 Gen: Alert, oriented, in mild discomfort Neck: No Masses, No Thyromegaly- CV: Regular Rate Rhythm / Edema- no significant Resp: Clear To Ascultation / Normal Respiratory Effort ABD: NonTender / NonDistended MS/Skin: No Cyanosis / No no dules / +Ankle DF/PF / nl capillary refill of toes. Other: Labs/X-ray: Laboratory Tests: 07/15 0341 Chemistry Sodium (136 - 145 mmol/L) 139 Potassium (3.5 - 5.1 mmol/L) 4.7 Chloride (98 - 107 mmol/L) 100.0 Carbon Dioxide (21 - 32 mmol/L) 29.5 BUN (7 - 18 mg/dL) 15 Creatinine (0.55 - 1.30 mg/dL) 0.85 Glomerular Filtr Rate (>60) 68.5 Glucose (70 - 110 mg/dL) 203 H Calcium (8.2 - 10.1 mg/dL) 8.8 Hematology Hgb (12 - 16 g/dL) 13.3 Hct (37 - 47 %) 39.8 Anshul Jason M.D. at [facility] RPT #:[id number] END OF REPORT 2018-07-15 08:06:00-00:00 [facility] Clinical Note REPORT#:[id number] REPORT STATUS: Signed DATE:07/15/18 TIME: 805 PATIENT: LORAINE CHUN UNIT #: [id number] [facility] AGE: 57 SEX: F ATTEND: Luis Benitez MD ADM AUTHOR: Gordon Benitez MD * ALL edits or amendments must be made on the el [employer]/computer document * Clinical Note Note: POD# 1 right hip Joint Arthroplasty Patient well, reports pain is mild-moderate AF VSS Exam: dressing dry/intact Moves toes DF/PF Sensory unchanged A/P: Mobilize with physical Therapy DVT prophylaxis ongoing Following labs Remove coverlet, do not recover, patient may umm wer Discharge planning at 0[address] [facility] #:[id number] END OF REPORT 2018-07-15 08:05:00-00:00 [facility] Discharge Summary REPORT#:[id number] REPORT STATUS: Signed DATE:07/15/18 TIME: 0805 PATIENT: LORAINE CHUN UNIT #: [id number] ROOM/BED: Y.322-A : 58 AGE: 57 SEX: F ATTEND: Luis Benitez MD ADM AUTHOR: Gordon Benitez MD * ALL edits or amendments must be made on the [employer]/computer document * PCP PCP Discharge to: home General Information Date of discharge: 07/15/18 Hospital course: Discharge Diagnosis: Right Hip Degenerative Dise ase Procedure: Right Hip Arthroplasty Hospital Course and Findings The patient underwent the pr ocedure without incident. Findings were significant for degenerative disease of the hip. The patient was hemodynamically and medically monitored during the postoperative per iod. Anticoagulation was instituted for postoperative DVT prophylaxis. Th e patient was progressively able to tolerate PO pain med ications and the appropriate diet. Physical therapy was instituted, with a progressive ability to am bulate and perform exercises. The patient was eventually deemed stable and saf e for discharge. At discharge, the patient was comfortabl e, with a controlled pain level. There were no chest or abdominal symptoms present. Dis charge physical examination demonstrated stable vital signs and no acute dis tress. The patient had an intact wound with no signifi cant drainage, and no calf tenderness and a negative Doug s sign bilaterally. There were no neurolog ic or vascular deficits or changes from the preoperative state. Disposition: Discharged to home Discharge Condition: Stable Instructions: Instruction sheet given to patient Activity: Ambulate with assistance, with weight- bearing as instructed in the hospital. Weight bearing limitations wer e reviewed with the patient during the hospitalization. The Patient was supplied with a walker to help with impaired ambulation during surgical recovery. Diet: As per preoperatively Prescriptions 1. Pain Medications: As per discharge prescription, with progressive weaning as pain decreases 2. Anticoagulation: As per discharge prescription, or PreOp anticoa gulant, as discussed with patient Follow-up Appointment: Patient instructe d to arrange appointment for an office visit in 2 weeks Med Rec Med Rec Discharge meds: Stop taking the following medications: [TASHI/BACK/BODY] ORAL THREE TIMES DAILY NEED ED. as needed for PAIN ACETAMINOPHEN (TYLENOL) 500 MG TAB ORAL THREE TIMES DAILY NEEDED. as needed for PAIN ASPIRIN (ASPIRIN) 325 MG TAB ORAL EVERY 6 HOURS NEEDED. as needed for PAIN Continue taking these medications: ALBUTEROL (ACCUNEB) 1.25 MG/3 ML NEB 1.25 MILLIGRAM INHALATION THREE TIMES A DAY. IPRATROPIUM (ATROVENT 0.02%) 0.5 MG/2.5 ML NEB 250 MICROGRAM INHALATION RT - THREE TIMES DAILY . BUDESONIDE/FORMOTEROL (SYMBICORT 160/4.5 MCG/ACT ) 10.2 GM INHALER 1 PUFF INHALATION RT - TWICE DAILY. Start taking the following new medications: ASPIRIN EC (ECOTRIN) 81 MG TAB.EC 81 MILLIGRAM ORAL TWICE DAILY WITH MEALS. Qty = 60 No Refills POLYETHYLENE GLYCOL 3350 (MIRALAX) 17 GM POWDER 17 GRAM ORAL BEDTIME. Days = 30 Qty = 30 No Refills Instructions: please take daily for constipation prevention MELOXICAM (MOBIC) 15 MG TAB 15 MILLIGRAM ORAL DAILY. Qty = 30 No Refills HYDROcodone/APAP (NORCO 10/325) 1 TAB TAB 1 TABLET ORAL EVERY 6 HOURS NEEDED. as neede d for pain Qty = 60 No Refills Instructions: take for breakthrough pain after taking Tramado l METHOCARBAMOL (ROBAXIN) 500 MG TAB 500 MILLIGRAM ORAL FOUR TIMES A DAY. Qty = 20 No Refills traMADol (ULTRAM) 50 MG TAB 50 MILLIGRAM ORAL EVERY FOUR HOURS. Qty = 60 No Refills at 0806 RPT #:[id number] END OF REPORT 2018-07-14 17:58:00-00:00 [facility] Clinical Note REPORT#:[id number] REPORT STATUS: Signed DATE:07/14/18 TIME: 545 PATIENT: LORAINE CHUN UNIT #: [id number] [facility] AGE: 57 SEX: F ATTEND: Luis Benitez MD ADM AUTHOR: Anshul Villarreal MD * ALL edits or amendments must be made on the el ectronic/computer document * Clinical Note Note: [facility] Anshul gonsalez MD (cell text [phone]) Internal Medicine Consult at request of : Dr Kash Benitez Chief Complaint: Right hip pain HPI: .57 yo F now s/p Right Total Hip Arthroplas ty (ALVIN) by Dr. Benitze. Ms. Chun relates years of progressive right hip p ain (recently severe), worse with activity, and achy and stiff at times in qu ality. She has failed conservative management. Comorbidities: see below. PmHx: .Hypertension, COPD, DARIO ALLERGY: Allergies: No Known Drug Allergies (Coded, 07/14/18) Home Medications: Home Medications: ALBUTEROL (ACCUNEB) 1.25 MG INH TID IPRATROPIUM (ATROVENT 0.02%) 250 MCG INH RTTID BUDESONIDE/FORMOTEROL (SYMBICORT 160/4.5 MCG/ACT ) 1 PUFF INH RTBID ASPIRIN EC (ECOTRIN) 81 MG PO BID MEALS POLYETHYLENE GLYCOL 3350 (MIRALAX) 17 GM PO BEDT RENEE MELOXICAM (MOBIC) 15 MG PO DAILY HYDROcodone/APAP (NORCO 10/325) 1 TAB PO Q6H PRN PRN pain METHOCARBAMOL (ROBAXIN) 500 MG PO QID traMADol (ULTRAM) 50 MG PO Q4H SgHx: .c- section, left ankle SHx: Tob: 3 ppw x 47 yrs., Quit 03/2018 FHx: .No significant hx of DVT/PE. Alcohol: daily Drugs: none Lives: with sister Vitals: Vital Signs Date Temp Pulse Resp B/P B/P Mean Pulse Ox FiO2 07/14 96.6-97.8 61-74 14-20 114-166/60-79 105 9 6-100 Gen: Alert, in mild discomfort, nl nutrition. EYE: Nl lids conjunctiva. ENT: Nl ears Nose, nl lips,. Neck: Supple, nl thyroid, No masses. CV: Regular Rate Rhythm, no heave or significant murmur. Edema- none Feet toes normal temperature. RESP: Clear to Auscultation, normal Respiratory effort. ABD: Soft, NonDistended,. LYM: No significant cervical Lymphadenopathy. MS: No Clubbing, cyanosis, NEURO: Nonfocal, grossly normal sensation of LE , +Ankle DF/PF PSY: Normal insight, Normal mood, oriented, . Preop Labs (07/01/18): CBC:. Hgb 15, Plt 300, CHEM: Na 141, K 3.7, Cr 0 .68 (eGFR 88.6%), . Ekg: NSR (medium to high risk of complications or morbidi ty) (major surgery) (IV sedative, meds) Assessment Plan 1.) Anemia of Acute Blood Loss- .will recheck 03/23. 2.) S/p Right ALVIN- .acute pain control. Anticoag ulation as per Dr. Benitez. 3.) Hypertension- .follow BP and hold Rxs if SBP <120. 4.) COPD DARIO- .continue on Rx. Anshul Jason M.D. Thanks! at 2011 RPT #:[id number] END OF REPORT 2018-07-14 15:05:00-00:00 [facility] Operative Note - Full REPORT#:[id number] REPORT STATUS: Signed DATE:07/14/18 TIME: 1505 PATIENT: LORAINE CHUN UNIT #: [id number] ROOM/BED: 998- : 56 AGE: 57 SEX: F ATTEND: Luis Benitez MD ADM AUTHOR: Gordon Benitez MD * ALL edits or amendments must be made on the el [employer]/computer document * Operative Report Start date: 07/14/18 Start time: 0000 Pre-procedure diagnosis: R HIP OA, OBESITY BMI 50 Post-procedure diagnosis: SAME Procedures performed: R COMPLEX ALVIN Technique/Procedure: Posterior Total Hip Replacement OPERATIVE PROCEDURE IN DETAIL The patient was identified in the holdin g area, and all questions and concerns were answered. The patient verbally conf irmed the site and side of the surgery and marking of the site was done. The patient was brought to [facility] operating room and, after adequate anesthesia was obtained was turned into the lateral decubitus p osition and held there with a well padded pelvic reed and airplane a rm splint. The leg was then prepped in routine sterile manner, following which it was d raped free, including the perineum and operative areas with adhesive Ioban Drape. A surgical time-out was perf ormed to identify correct patient, surgical site and surgery. We verified patient had received preope rative antibiotics. The skin incision was made i n the axis of the shaft of the femur centered on the greater trochanter and slanted backward in the d irection of the fibers of the gluteus marlon. The skin in cision was carried through subcutaneous tissue down to fascia. After hemostasis, the fascia was divi ded in the direction of its fibers, splitting the fibers of gluteus marlon superiorly. After hemostasis, anterior and posterior flaps were raised, and the Charnley retractor was placed. The interval between the piriformis and the inferior border of gluteus minimus and medius was then identified, and a retractor placed deep beneath gluteus minimus. Gluteus minimus was then retracted off the underlying hip capsule. The piriformis tendon and the rest of the sh ort external rotators and capsule were identified and cut close to its attachment to th e greater trochanter by internally rotating the leg. The hip was then dislocated. Retractors were sidney demarcus around the femoral neck. Using a neck cuting guide, the femoral head and neck were cut at the pre- templated level. Attention was directed to the a cetabulum where anterior and posterior retractors were pl aced. Remnants of labrum were excised anteriorly and posteriorly using a combination of electrocauter y and sharp dissection. Posterior capsule was preserved. The contents of the acetabular fossa were removed by electrocautery an d curettes. This allowed visualization of the cavity of the acetabulum, which was then reamed with guajardo ccessive reamers. The acetabular component was then insert ed in press-fit mode into the floor of the acetabulum in an appropriate amount of incli nation and anteversion. The trial liner was then introduced into the cup. The retractors were removed, and attention was directed to the femur. Electrocautery was used to remove the tendinous stump of piriformis and surrounding soft tissue to e xpose the lateral-most extent of the femoral neck. A box osteotome was then used to enter the proxima l femur, following which the femur was reamed with successive reamers. The fe mur was then broached with appropriate broaches. A tria l neck and head were placed onto the broach and the hip was reduced. ROM and stability were checked. An intraoperative x-ray confirmed placement of the c omponents and it was used to see if any adjustments were needed. The trial components were th en removed, and the cup liner was inserted and fully seated. The stem was inserted in press-fit mode. The femoral head was seated onto the trunion. The hip wa s then reduced after thoroughly cleansing the inner aspect of the acetabulum to assure that all debr is was removed. The wound was thoroughly washed, and, after reduction of the h ip, the leg was placed on a metal family independence case manager slight abduction and internal rot ation. The capsule, with overlying short rotators, was then reattached in anatomic fashion to the intertrochanteric line and posterior trochanteri c ridge through bony tunnels. The fascia was closed with interrupted #1 Vicryl and #2 Quill sutures. The subcutaneous tissues were closed with as deep la isaac of #1 Vicryl, superficial layer of 2-0 Vicryl sutures, and the skin edges were re-approximate. An absorbent dressing was applied. A pillow was placed between the knees an d the patient was then returned to the recovery room in good condition having tolerated the procedure well. Complexity Case was off added complexit y due to patient s morbid obesity with a BMI of 50. We needed additional time for positioning, expos ure, handling of the soft tissues, management of limb, positioning of retractors and additional time for complex multilayer closure. This case took 2 gerald es longer than a typical procedure INDICATIONS FOR CHAR FILTER TANK TENDER HEAD The presence of a skilled guajardo rgical recruitment assistant was medically necessary to aid for the entire procedure. Their responsibilities inc lude patient positioning, retraction of soft tissues for wide exposure so that the surgeon can use both hands to perform the surgery, as well as stabili zing the limb for surgical instrumentation throughout the case. Ret raction for exposure/visualization, as well as stabilization of the extremity is vital to the procedure and not possible without an recruitment assistant. In addition guyin edilma an recruitment assistant shortens operative times which decrea ses expenses and improves outcomes. I am not part of any residency or fellowship training programs and therefore require the help of the recruitment assistant listed above for this surgery. IMPLANTS Depuy 52 mm [place] cup, 36+4 liner, 3 hi trilo ck, 36-2 mm METAL head Primary Surgeon: SLIME [employer] Client Executive(s): CAMELIA MERRILL Anesthesia: TIVA Operative findings: OA Complications: none Estimated blood loss in ml's: 350 Specimens removed/altered: none Implant(s): DEPUY at 1507 RPT #:[id number] END OF REPORT 2018-07-01 16:01:00-00:00 [id number] [place] [id number] PATIENT NAME: LORAINE CHUN ADMIT DATE: ACCOUNT NO: [id number] ROOM NO: AGE: 57 REPORT TYPE: ELECTROCARDIOGRAM SEX: F ADMITTING PHYSICIAN:Gordon Benitez MD ATTENDING PHYSICIAN:Gordon Benitez MD Order: [id number] Test Reason : PREOP CLEARANCE, AGE OVER 50 Test Date/Time Stamp: WedJul 01 2018 16:01:11 Blood Pressure : / mmHG Vent. Rate : 066 BPM Atrial Rate : 066 BPM P-R Int : 176 ms QRS Dur : 088 ms QT Int : 416 ms P-R-T Axes : 064 041 021 degree s QTc Int : 436 ms Normal sinus rhythm Low voltage QRS Nonspecific ST abnormality Borderline ECG No previous ECGs available Confirmed by DYLON STOCK MD ([id number]) on 07/07/2018 1 2:29:32 PM Referred By: Gordon Benitez Confirmed by:DYLON STOCK MD Electronically Signed by Dylon Stock MD on 07/22 at 1229 PATIENT NAME: LORAINE CHUN [id number]
[2022-11-17 19:24] LABS: Absolute Lymphocytes (CBC) 1.1 K/uL (0.7-4.9); Lymphocytes % 19.2 % (15.3-44.8); MCV 108.2 fL (80-100); MPV 8.2 fL (7.6-11.3); Platelets 284 thou/uL (152-406); RBC Red Blood Cell Count 4.07 M/uL (3.86-4.86)
[2022-11-17 19:34] LABS: Specific Gravity > 1.030 (1.005-1.030); Urine Bacteria <20 /HPF (<20); Urine Bilirubin 1+ (Negative); Urine Blood Negative (Negative); Urine Clarity Extremely Turbid (Clear); Urine Color Yellow (Yellow); Urine Glucose NEGATIVE (Negative); Urine Mucus Slight /HPF (None Seen); Urine Protein 1+ (Negative); Urine Urobilinogen 2+ (Normal); Urine pH 5.5 (5.0-7.0)
[2022-11-17] MEDS ORDERED: ONDANSETRON 4 MG/2 ML VIAL ONE (19:36)
--- NOTE | 2022-11-17 19:37 | RAD REPORT ---
EXAM DESCRIPTION: RADChest Single View11/17/2022 7:23 pm CLINICAL HISTORY: shortness of breath COMPARISON: Chest Single View dated 04/19/2022; Chest Single View dated 04/18/2022; Chest Single View dated 04/13/2022; Chest Single View dated 10/14/2021 TECHNIQUE: Portable AP view of the chest. FINDINGS: Prominent soft tissues with some under penetration along the lower lungs somewhat limits e valuation. Stent wall mild central interstitial prominence, which could relate to mild central venous congestion. No pneumothorax or effusion. Stable cardiomegaly. Mediastinal contours are unremarkable. IMPRESSION: Stable findings as above.
[2022-11-17 20:02] LABS: Albumin 3.7 g/dL (3.4-5.0); Protein, Total 7.9 g/dL (6.4-8.2)
[2022-11-17 20:03] LABS: Potassium 2.9 mEq/L (3.5-5.1)
[2022-11-17 20:13] LABS: Blood Morphology Comment NOTED (NOT SEEN); Macrocytosis 1+; Platelet Estimate ADEQ; White Blood Cell Scan OK (OK)
--- NOTE | 2022-11-17 21:19 | RAD REPORT ---
EXAM DESCRIPTION: CT - Abdomen Pelvis W Contrast - 11/17/2022 8:41 pm CLINICAL HISTORY: ABD PAIN COMPARISON: Chest For Pe Angio dated 04/13/2022 TECHNIQUE: Thin cut axial CT imaging of the abdomen and pelvis was performed following intravenous a dministration of 100 mL Isovue 300. Multiplanar reformats were generated and reviewed. All CT scans are performed using dose optimization technique as appropriate and may include automated exposure control or mA/KV adjustment according to patient size. FINDINGS: No suspicious findings in the lung bases. The liver shows diffuse parenchymal hypoattenuation suggesting steatosis. Adrenal glands, spleen, and pancreas show no suspicious findings. Gallbladder and biliary tree are also without suspicious findi ng. Symmetric renal function is seen with no hydronephrosis or suspicious renal mass. Markedly distended small bowel with air-fluid levels. There is an abrupt transition point of the smal l bowel caliber present at the neck of a large umbilical hernia (with opening measuring 5.9 cm in gre atest diameter at the neck). The subsequent loops of nondistended small bowel within the hernia sacs show mild wall thickening with edema within the bleeding is not very. A segment of nondistended trans verse colon is also present within the hernia sac. No free air, free fluid or fluid collections. No h ernia, mass or bulky lymphadenopathy. The urinary bladder is suboptimally distended limiting evaluati on. No suspicious bony findings. Chronic appearing superior endplate compression fracture deformity at L1 , with moderate to advanced vertebral body height loss. Right total hip arthroplasty hardware is pres ent. IMPRESSION: High-grade small bowel obstruction with transition point along the distal small bowel, p resent at the neck of a large umbilical hernia. Mild wall thickening of the nondistended small bowel within the hernia sac, with edema within the win ding mesenteric suggesting segmental enteritis. Other incidental findings as above. The findings were communicated to Landon Wynn on 11/17/2022 at 21:11 hours.
--- NOTE | 2022-11-17 21:39 | EDPHYS ---
Physician Documentation [facility] Name: Carla Harris Age: 62 yrs Sex: Female : 1960 Arrival Date: 11/17/2022 Time: 18:50 Bed 18 Private MD: ED Physician Landon Wynn HPI: 11/17 19:08 This 62 yrs old Female presents to ER via EMS with complaints of Nausea/Vomiting. ms3 19:18 62-year-old female with past medical history of COPD, atrial fibrillation, congestive ms3 heart failure, lymphedema presents via [facility] for shortness of breath that began on , and nausea that began on Wednesday. Patient states her children because her to call the ambulance. EMS notes patient was off her home oxygen and saturating 93% on room air on their arrival. Patient was placed on 3 L nasal cannula and oxygen saturations improved to 100%. EMS notes patient's blood pressure to be 189/110, heart rate 106, respiratory rate 18 on their arrival. Patient states she has been out of Lasix for 1-1/2 weeks. Patient denies abdominal pain at this time. Patient denies alleviating or inciting factors. Historical: - Allergies: 18:52 No Known Allergies; aa5 - PMHx: 18:52 "pre diabetic"; COPD; Atrial fibrillation; CHF; Lymphedema; Home O2 via 2.5L NC; aa5 - PSHx: 18:52 section; L ankle; R hip; aa5 - Immunization history:: Adult Immunizations unknown. - Social history:: Smoking status: Patient denies any tobacco usage or history of. ROS: 19:18 Constitutional: Negative for fever, and chills. Neck: Negative for injury, pain, and ms3 swelling, Cardiovascular: Negative for chest pain, and palpitations. 19:18 Respiratory: Negative for shortness of breath, cough, wheezing, and pleuritic chest pain. 19:18 MS/Extremity: Negative for injury and deformity, Skin: Negative for injury, rash, and discoloration, Psych: Negative for depression, anxiety, suicide ideation, homicidal ideation, and hallucinations. 19:18 Respiratory: Positive for shortness of breath. 19:18 Abdomen/GI: Positive for nausea and vomiting. 19:18 All other systems are negative. Exam: 19:18 Constitutional: This is a well developed, well nourished patient who is awake, alert, ms3 and in no acute distress. Head/Face: Normocephalic, atraumatic. Neck: Trachea midline, no cervical lymphadenopathy. Supple, full range of motion without nuchal rigidity, or vertebral point tenderness. No Meningismus. Chest/axilla: Normal chest wall appearance and motion. Nontender with no deformity. Cardiovascular: Regular rate and rhythm with a normal S1 and S2. No gallops, murmurs, or rubs. Normal PMI, no JVD. No pulse deficits. Respiratory: Lungs have equal breath sounds bilaterally, clear to auscultation and percussion. No rales, rhonchi or wheezes noted. No increased work of breathing, no retractions or nasal flaring. Abdomen/GI: Soft, non-tender, with normal bowel sounds. No distension or tympany. No guarding or rebound. No evidence of tenderness throughout. Skin: Warm, dry with normal turgor. Normal color with no rashes, no lesions, and no evidence of cellulitis. MS/ Extremity: Pulses equal, no cyanosis. Neurovascular intact. Full, normal range of motion. 19:18 ECG was reviewed by the Attending Physician. ms3 Vital Signs: 18:51 BP 157 / 94; Pulse 95; Resp 18 S; Temp 98.6(O); Pulse Ox 100% on 3 lpm NC; Weight aa5 136.08 kg (R); Height 5 ft. 1 in. (R); 20:21 BP 144 / 79; Pulse 89; Resp 19 S; Pulse Ox 100% on 3 lpm NC; jw7 21:00 BP 165 / 84; Pulse 91; Resp 20; Pulse Ox 98% on 3 lpm NC; jw7 21:45 BP 158 / 86; Pulse 97; Resp 21; Pulse Ox 99% on 3 lpm NC; jw7 11/18 00:00 BP 130 / 80; Pulse 95; Resp 19; Temp 98.7; Pulse Ox 99% on 3 lpm NC; jw7 11/17 18:51 Body Mass Index 56.68 (136.08 kg, 154.94 cm) aa5 MDM: 11/17 18:51 Patient medically screened. ms3 19:18 Differential diagnosis: Nonspecific abd pain, cholecystitis, appendicitis, ms3 diverticulitis, viral gastroenteritis, gastroenteritis. 20:49 Transition of care: After a detail discussion of the patient's case, care is ms3 transferred to Landon Wynn MD. 21:35 Differential diagnosis: gastritis, pancreatitis. Data reviewed: vital signs, nurses sp4 notes. Data reviewed: old medical records, lab test result(s), radiologic studies, CT scan. Consideration of Admission/Observation Patient was admitted/placed on observation. Escalation of care including admission/observation considered. Management of patient was discussed with the following: Hospitalist: Admitting Team . Paper Cap Machine Operator: General surgery Dr. Little . ED course: Patient's CT revealed high-grade bowel obstruction associated with incarcerated umbilical hernia. Hernia is quite large nonreducible by exam. NG tube was ordered for the patient and general surgery consult was obtained. Patient also has hypokalemia suggestive of persistent vomiting at home. Patient states symptoms started 6 days ago and described as nonstop vomiting at home, inability to tolerate any p.o. intake. Patient has no prior similar history. Surgical history includes prior . No history of cholecystectomy or appendectomy. Patient is hemodynamically stable. Will consider admission under hospitalist with general surgery consult. . 11/17 18:55 Order name: CBC with Diff; Complete Time: 20:32 ms3 11/17 18:55 Order name: CMP; Complete Time: 20:32 ms3 11/17 18:55 Order name: Lipase; Complete Time: 20:32 ms3 11/17 18:55 Order name: Urinalysis w/ reflexes; Complete Time: 20:32 ms3 11/17 19:30 Order name: CBC Smear Scan; Complete Time: 20:32 EDMS 11/17 20:34 Order name: NT PRO-BNP; Complete Time: 21:24 ms3 11/17 21:25 Order name: Lactate w/ 2H reflex if indic. sp4 11/17 21:27 Order name: SARS RAPID sp4 11/18 05:22 Order name: CBC with Automated Diff EDMS 11/18 09:33 Order name: Comprehensive Metabolic Panel EDMS 11/17 18:55 Order name: CT Abd/Pelvis - IV Contrast Only; Complete Time: 21:24 ms3 11/17 18:55 Order name: XRAY Chest (1 view); Complete Time: 20:32 ms3 11/17 18:55 Order name: EKG; Complete Time: 18:57 ms3 11/17 18:55 Order name: IV Saline Lock; Complete Time: 19:20 ms3 11/17 18:55 Order name: Labs collected and sent; Complete Time: 19:20 ms3 11/17 18:55 Order name: Cardiac monitoring; Complete Time: 19:20 ms3 11/17 18:55 Order name: EKG - Nurse/Tech; Complete Time: 19:20 ms3 11/17 18:55 Order name: O2 Per Protocol; Complete Time: 19:20 ms3 11/17 18:55 Order name: O2 Sat Monitoring; Complete Time: 19:20 ms3 11/17 21:14 Order name: NG Tube; Complete Time: 23:02 sp4 EC:18 Rate is 97 beats/min. Rhythm is regular. QRS [place] is Normal. SD interval is normal. QRS ms3 interval is normal. QT interval is normal. Clinical impression: Normal ECG. Interpreted by me. Reviewed by me. Administered Medications: 19:43 Drug: Ondansetron IVP 4 mg Route: IVP; Site: right antecubital; [facility] 20:33 Follow up: Response: No adverse reaction; Marked relief of symptoms jw 21:33 CANCELLED (Duplicate Order): D5-1/2 NS with KCl IV 20 mEq/L 1000 ml IV at 100 ml/hr sp4 continuous 23:01 Drug: D5-1/2 NS with KCl IV 20 mEq/L 1000 ml Route: IV; Rate: 125 ml/hr; Site: right [facility] antecubital; 23:02 Drug: metoCLOPramide IVP 10 mg Route: IVP; Site: right antecubital; [facility] 11/18 01:05 Follow up: Response: No adverse reaction; Marked relief of symptoms [facility] 11/17 23:02 Drug: morphine IVP or IV 4 mg Route: IVP; Infused Over: 4 mins; Site: right antecubital;[facility] 11/18 01:05 Follow up: Response: No adverse reaction; Marked relief of symptoms [facility] 11/17 23:02 Drug: Potassium Chloride IV 20 mEq Route: IV; Rate: calculated rate; Site: right [facility] antecubital; 11/18 01:06 Follow up: Response: No adverse reaction; IV Status: Completed infusion; IV Intake: jw7 100ml 11/17 23:07 CANCELLED (Physician Discretion): Lactated Ringers Solution IV 1000 ml IV at 1000 bolus jw7 continuous Disposition Summary: 11/17/22 21:38 Hospitalization Ordered Hospitalization Status: Inpatient Admission sp4 Provider: Jake Simms sp4 Condition: Stable sp4 Problem: new sp4 Symptoms: have improved sp4 Bed/Room Type: Standard sp4 Location: Telemetry/MedSurg (Inpatient)(11/18/22 12:45) bd Room Assignment: 218(11/18/22 12:45) bd Diagnosis - Small bowel obstruction, incarcerated umbilical hernia. Hypokalemia. Moderate sp4 dehydration Forms: - Medication Reconciliation Form sp4 - SBAR form sp4 - Leadership Thank You Letter sp4 Signatures: Dispatcher [employer] EDMS Carla Goodson Audri RN RN aa5 Pat Max RN RN eb1 Kishore Vincent DO DO ms3 Melissa Gómez RN RN jw7 Landon Wynn MD MD sp4 Corrections: (The following items were deleted from the chart) 21:33 21:32 D5-1/2 NS with KCl IV 20 mEq/L 1000 ml IV at 100 ml/hr continuous ordered. sp4 sp4 23:06 21:28 S[place] ordered. sp4 jw7 23:07 21:26 Lactated Ringers Solution IV 1000 ml IV at 1000 bolus continuous ordered. sp4 jw7 23:11 21:38 Telemetry/MedSurg (Inpatient) sp4 eb1 23:11 21:38 sp4 eb1 11/18 12:45 11/17 23:11 [facility] ER HOLD eb1 bd 11/18 12:45 08 23:11 ERHOLD- eb1 bd
--- NOTE | 2022-11-17 21:39 | ER ---
Nurse's Notes [facility] Name: Carla Harris Age: 62 yrs Sex: Female : 1960 Arrival Date: 11/17/2022 Time: 18:50 Bed 18 Private MD: Diagnosis: Small bowel obstruction, incarcerated umbilical hernia. Hypokalemia. Moderate dehydration Presentation: 11/17 18:51 Chief complaint: EMS states: SOB since , nausea since Wednesday and vomiting. Ran aa5 out of [employer] 1 week ago. 18:51 Coronavirus screen: shortness of breath. Ebola Screen: Patient denies travel to an aa Ebola-affected area in the 21 days before illness onset. Initial Sepsis Screen: Does the patient meet any 2 criteria? HR > 90 bpm. Does the patient have a suspected source of infection? No. Patient's initial sepsis screen is negative. Risk Assessment: Do you want to hurt yourself or someone else? Patient reports no desire to harm self or others. Onset of symptoms was November 2022. 18:51 Acuity: DANK 3 aa5 18:51 Method Of Arrival: EMS: [facility] aa5 Triage Assessment: 19:22 General: Appears in no apparent distress. uncomfortable, obese, Behavior is calm, jw7 cooperative. GI: Reports intolerance of food, nausea, vomiting. Historical: - Allergies: 18:52 No Known Allergies; aa5 - PMHx: 18:52 "pre diabetic"; COPD; Atrial fibrillation; CHF; Lymphedema; Home O2 via 2.5L NC; aa5 - PSHx: 18:52 section; L ankle; R hip; aa5 - Immunization history:: Adult Immunizations unknown. - Social history:: Smoking status: Patient denies any tobacco usage or history of. Screenin:21 [facility] ED Fall Risk Assessment (Adult) History of falling in the last 3 months, jw7 including since admission No falls in past 3 months (0 pts) Score/Fall Risk Level 0 - 2 = Low Risk Oriented to surroundings, Maintained a safe environment, Hourly rounding (assess needs \\T\\ fall precautionary measures) done. Abuse screen: Denies threats or abuse. Denies injuries from another. Nutritional screening: No deficits noted. Tuberculosis screening: No symptoms or risk factors identified. Assessment: 18:55 Reassessment: Pt assisted to restroom . aa5 19:09 Reassessment: Pt being assisted by automotive diagnostic technician back into bed. . aa5 19:34 Pain: Complains of pain in abdomen Pain does not radiate. Pain at worst was 8 out of 10 jw7 on a pain scale. Quality of pain is described as sharp, stabbing, Pain began last , 2022, only during episodes of nausea and vomiting. Neuro: No deficits noted. [facility] Agitation-Sedation Scale (RASS): 0 - Alert and Calm Level of Consciousness is awake, alert, obeys commands, Oriented to person, place, time, situation. Cardiovascular: No deficits noted. Heart tones S1 S2 present Capillary refill < 3 seconds Patient's skin is warm and dry. Respiratory: No deficits noted. Airway is patent Trachea midline Respiratory effort is even, unlabored, Respiratory pattern is regular, symmetrical. GI: Abdomen is round Bowel sounds hypoactive in right upper quadrant, left upper quadrant, right lower quadrant and left lower quadrant Abd is non tender X 4 quads Reports intolerance of food, nausea, vomiting, Sharp pain immediately before vomiting to upper abdomen/epigastric area. : No deficits noted. No signs and/or symptoms were reported regarding the genitourinary system. EENT: No deficits noted. Reports pain in throat when vomiting. Derm: No deficits noted. No signs and/or symptoms reported regarding the dermatologic system. Skin is intact, is healthy with good turgor, Skin is dry, Skin is normal, Skin temperature is warm. Musculoskeletal: No deficits noted. No signs and/or symptoms reported regarding the musculoskeletal system. Circulation, motion, and sensation intact. Capillary refill < 3 seconds. 20:30 Reassessment: Patient appears in no apparent distress at this time. No changes from jw7 previously documented assessment. Patient and/or family updated on plan of care and expected duration. Pain level reassessed. Patient is alert, oriented x 3, equal unlabored respirations, skin warm/dry/pink. Patient states symptoms have not improved. 21:40 Reassessment: Patient appears in no apparent distress at this time. No changes from jw7 previously documented assessment. Patient and/or family updated on plan of care and expected duration. Pain level reassessed. Patient is alert, oriented x 3, equal unlabored respirations, skin warm/dry/pink. Patient states symptoms have not improved. 22:57 Reassessment: Patient appears in no apparent distress at this time. No changes from [facility] previously documented assessment. Patient and/or family updated on plan of care and expected duration. Pain level reassessed. Patient is alert, oriented x 3, equal unlabored respirations, skin warm/dry/pink. Patient states feeling better. Stomach is feeling better. 11/18 12:53 Reassessment: attempted to call report to 2nd floor. room not yet assigned to a nurse kc6 per Michelle. they will call me back. 13:37 Reassessment: attempted to call report to 2nd floor. service unit operator stated room is kc6 still not assigned and that they dont have a charge nurse. Vital Signs: 11/17 18:51 BP 157 / 94; Pulse 95; Resp 18 S; Temp 98.6(O); Pulse Ox 100% on 3 lpm NC; Weight aa5 136.08 kg (R); Height 5 ft. 1 in. (R); 20:21 BP 144 / 79; Pulse 89; Resp 19 S; Pulse Ox 100% on 3 lpm NC; jw7 21:00 BP 165 / 84; Pulse 91; Resp 20; Pulse Ox 98% on 3 lpm NC; jw7 21:45 BP 158 / 86; Pulse 97; Resp 21; Pulse Ox 99% on 3 lpm NC; jw7 11/18 00:00 BP 130 / 80; Pulse 95; Resp 19; Temp 98.7; Pulse Ox 99% on 3 lpm NC; jw7 11/17 18:51 Body Mass Index 56.68 (136.08 kg, 154.94 cm) aa5 ED Course: 11/17 18:51 Patient arrived in ED. ms3 18:51 Kishore Vincent DO is Attending Physician. ms3 18:51 Arm band placed on Patient placed in an exam room, on a stretcher. aa5 18:55 Triage completed. aa5 19:05 Urine collected: clean catch specimen, sent to lab. aa5 19:06 Melissa Gómez, SALUD is Primary Nurse. jw7 19:20 Initial lab(s) drawn, by me, sent to lab. Inserted saline lock: 20 gauge in right jw7 antecubital area, using aseptic technique. Blood collected. 19:20 CBC with Diff Sent. jw7 19:20 CMP Sent. jw7 19:20 Lipase Sent. jw7 19:20 Urinalysis w/ reflexes Sent. jw7 19:20 Oxygen administration via nasal cannula \\T\\ 3L/min Response to oxygen therapy: symptoms jw7 improved. 19:21 Patient has correct armband on for positive identification. Bed in low position. Call jw7 light in reach. Side rails up X2. 19:25 XRAY Chest (1 view) In Process Unspecified. EDMS 20:43 CT Abd/Pelvis - IV Contrast Only In Process Unspecified. EDMS 20:49 Attending Physician role handed off by Kishore Vincent DO ms3 20:49 Landon Wynn MD is Attending Physician. ms3 21:38 Jake Simms MD is Hospitalizing Provider. sp4 22:58 NGT: inserted 16 Fr. via right nare. verified return of gastric contents, to jw intermittent suction. Returned gastric contents. Amount of gastric contents removed by suction 1000ml. Patient tolerated well. 23:02 SARS RAPID Sent. jw7 23:02 Lactate w/ 2H reflex if indic. Sent. 7 11/18 14:11 No provider procedures requiring assistance completed. Patient admitted, IV remains in kc6 place. Administered Medications: 11/17 19:43 Drug: Ondansetron IVP 4 mg Route: IVP; Site: right antecubital; jw7 20:33 Follow up: Response: No adverse reaction; Marked relief of symptoms jw7 21:33 CANCELLED (Duplicate Order): D5-1/2 NS with KCl IV 20 mEq/L 1000 ml IV at 100 ml/hr sp4 continuous 23:01 Drug: D5-1/2 NS with KCl IV 20 mEq/L 1000 ml Route: IV; Rate: 125 ml/hr; Site: right [facility] antecubital; 23:02 Drug: metoCLOPramide IVP 10 mg Route: IVP; Site: right antecubital; [facility] 11/18 01:05 Follow up: Response: No adverse reaction; Marked relief of symptoms [facility] 11/17 23:02 Drug: morphine IVP or IV 4 mg Route: IVP; Infused Over: 4 mins; Site: right antecubital;[facility] 11/18 01:05 Follow up: Response: No adverse reaction; Marked relief of symptoms [facility] 11/17 23:02 Drug: Potassium Chloride IV 20 mEq Route: IV; Rate: calculated rate; Site: right jw7 antecubital; 11/18 01:06 Follow up: Response: No adverse reaction; IV Status: Completed infusion; IV Intake: jw7 100ml 11/17 23:07 CANCELLED (Physician Discretion): Lactated Ringers Solution IV 1000 ml IV at 1000 bolus jw7 continuous Medication: 11/18 06:43 VIS not applicable for this client. jw7 Intake: 01:06 IV: 100ml; Total: 100ml. jw7 Outcome: 11/17 21:38 Decision to Hospitalize by Provider. sp4 11/18 14:08 Admitted to Med/surg accompanied by tech, via stretcher, room 218, with chart, Report kc6 called to DORIS BRANNON Condition: stable Instructed on the need for admit. 14:40 Patient left the ED. vu Signatures: Dispatcher [employer] EDMS Latisha Campbell RN RN aa5 Kishore Vincent, DO ms3 Melissa Gómez RN RN jw7 Malorie Deras RN RN kc6 Landon Wynn MD MD sp4 Corrections: (The following items were deleted from the chart) 11/17 23:11 20:21 BP 144 / 79; Pulse 89bpm; Resp 19bpm; Spontaneous; Pulse Ox 100% RA; jw7 jw7
[2022-11-17] MEDS ORDERED: MORPHINE 4 MG/ML SYR ONE (21:51)
[2022-11-17] MEDS ORDERED: D5.45NS W/KCL 20MEQ 1,000 ML IV ONE (21:52)
[2022-11-17] MEDS ORDERED: KCL 20 MEQ/100 mL IVPB 100 ML IV ONE (21:52)
[2022-11-17] MEDS ORDERED: METOCLOPRAMIDE 10 MG/2mL INJ ONE (21:53)
--- NOTE | 2022-11-17 22:04 | P.PN ---
Date of Service: 11/17/[address] Karsten Little of [place] dictating Please see full dictated consult for details I have come and seen the patient to evaluate abdominal exam as patient presents with evidence of bowel obstruction. Patient complains of a 1 week history of nausea vomiting decreased p.o. intake and decreased bowel function and states she has not had a bowel movement several days. She cannot recall her last gas passage. She is awake alert and oriented Abdomen is soft obese global mild tenderness no peritonitis no rebound no guarding no skin changes or palpable hernia is evident which is large and nonreducible Assessment plan will reevaluate in morning NG tube to be placed Serial abdominal exams Continue medical management per primary team
--- NOTE | 2022-11-17 22:50 | P.HP ---
Certification for Inpatient Patient admitted to: Inpatient With expected LOS: >2 Midnights Patient will require the following post-hospital care: None Practitioner: I am a practitioner with admitting privileges, knowledge of patient current condition, hospital course, and medical plan of care. Services: Services provided to patient in accordance with Admission requirements found in Title 42 Section 412.3 of the Code of Federal Regulations Patient History Date of Service: 11/17/22 Reason for admission: SBO History of Present Illness: 62-year-old female with history of atrial fibrillation on chronic anticoagulation, chronic diastolic congestive heart failure, COPD, hypertension, hyperlipidemia, hypothyroidism, DARIO, on home O2 2.5 Liters/CPAP at home presents to the emergency department chief complaint of vomiting, abdominal pain. She reports that her pain began on 11/10/2022 worsened on 11/12/2022 as she has been vomiting since 11/12/2022, has not had a bowel movement in the last 3 to 4 days, also not passing gas per patient. She was evaluated in the emergency department her labs were significant for sodium 130 potassium 2.9 chloride 77 bicarb [address] abdomen pelvis with IV contrast shows high-grade small bowel obstruction with transition point along the distal small bowel, present at the neck of a large umbilical hernia. Mild wall thickening of the nondistended small bowel within the hernia sac, with edema within bleeding mesenteric suggesting segmental enteritis. ED physician discussed case with general surgeon who has seen patient at bedside. Will need to be admitted to floor high-grade small bowel obstruction. Allergies No Known Allergies Allergy (Unverified 04/13/22 03:13) Home Medications: Acetaminophen [Tylenol Extra Strength] 500 mg PO PRN 10/10/21 Furosemide 40 mg PO DAILY 10/10/21 Atorvastatin Calcium [Lipitor] 40 mg PO BEDTIME #30 tab 10/13/21 Mometasone/Formoterol [Dulera 200 Mcg/5 Mcg Inhaler] 2 puff IH BID #1 inhaler 10/13/21 Sotalol HCl [Betapace*] 80 mg PO BID 6AM 6PM #60 tab 10/13/21 Spironolactone [Aldactone*] 25 mg PO BID #60 tab 10/13/21 Albuterol Neb [Proventil 0.083% Neb Soln] 2.5 mg NEB [id number] PRN #120 amp 04/19/22 Apixaban [Eliquis] 5 mg PO BID #60 tab 04/19/22 Benzonatate [Tessalon Perle*] 100 mg PO TID PRN #30 cap 04/19/22 Furosemide [Lasix*] 40 mg PO BIDL #60 tab 04/19/22 Ipratropium Neb [Atrovent*] 0.5 mg NEB [id number] PRN #120 amp 04/19/22 Spironolactone [Aldactone*] 50 mg PO BID #60 tab 04/19/22 predniSONE [Deltasone*] 10 mg PO DAILY #7 tab 04/19/22 - Past Medical/Surgical History Diabetic: No -: COPD -: HTN -: HLD -: DARIO -: Tr Cellulitis -: Chronic diastolic congestive heart failure -: Atrial fibrillation on chronic anticoagulation -: -: hip/ankle surgery Psychosocial/ Personal History: Pt currently unemployed after a fall last year, lives with family - Family History Mother -: Cancer Notes: stomach - Social History Smoking Status: Never smoker Alcohol use: No CD- Drugs: No Caffeine use: Yes Place of Residence: Home Review of Systems 10-point ROS is otherwise unremarkable Gastrointestinal: Nausea, Vomiting, Abdominal Pain, Distention Physical Examination - Physical Exam General: Alert, In no apparent distress, Oriented x3, Obese HEENT: Atraumatic, PERRLA, Mucous membr. moist/pink, EOMI, Sclerae nonicteric Neck: Supple, 2+ carotid pulse no bruit, No LAD, Without JVD or thyroid abnormality Respiratory: Clear to auscultation bilaterally, Normal air movement Cardiovascular: Regular rate/rhythm, Normal S1 S2, Other (Lymphedema bilaterally) Capillary refill: <2 Seconds Gastrointestinal: Hypoactive, Distended, Tenderness (Mild generalized abdominal tenderness) Musculoskeletal: No tenderness Integumentary: No rashes Neurological: Normal speech, Normal strength at 5/5 x4 extr, Normal tone, Normal affect - Studies Laboratory Data (last 24 hrs) 11/17/22 11/17/22 19:16 19:16 WBC 5.50 Hgb 14.9 Hct 44.0 Plt Count 284 Sodium 130 L Potassium 2.9 L BUN 12 Creatinine 0.67 Glucose 102 Total Bilirubin 1.0 AST 34 ALT 29 Alkaline Phosphatase 70 Lipase 127 H Assessment and Plan - Plan Assessment: High-grade small bowel obstruction with large umbilical hernia Hypokalemia Atrial fibrillation on chronic anticoagulation Chronic diastolic congestive heart failure COPD on home O22.5 L DARIO Hypertension Hyperlipidemia Hypothyroidism Plan: High-grade small bowel obstruction with large umbilical hernia N.p.o., IVF, IV antibiotics, as needed pain medications and antiemetics. Surgical consultation, surgeon has seen patient at bedside currently. Serial abdominal exams. NG tube in place. Hypokalemia Replaced in ED, protocol in place, potassium containing IV fluids. Atrial fibrillation on chronic anticoagulation Has not been taking her Eliquis since morning of 11/16/2022. Surgery following closely, may need intervention, will proceed with SCDs for now. If surgery is not necessary or once cleared after surgery will need to start Lovenox/Eliquis. Chronic diastolic congestive heart failure Appears compensated at this time, continue gentle IV fluids. Diuretics as needed. COPD on home O22.5 L Continue supplemental oxygen, as needed nebulizer treatments. DARIO CPAP at night. Hypertension Hyperlipidemia Hypothyroidism Continue home medications when appropriate. DVT PPX: SCD Code status: Full Discharge Plan: Home Plan to discharge in: 48 Hours - Advance Directives Does patient have a Living Will: No Does patient have a Durable POA for Healthcare: No - Code Status/Comfort Care Code Status Assessed: Yes (Full code) Critical Care: No Time Spent Managing Pts Care (In Minutes): 55
[2022-11-17 23:50] LABS: SARS-CoV-2 Antigen Rapid Res Negative (Negative)
[2022-11-18] MEDS ORDERED: ALBUTEROL 2.5 MG/3 ML NEB SOL NEB PRN (03:31)
[2022-11-18] MEDS: D5.45NS W/KCL 20MEQ 1,000 ML IV SCH ×2 (03:31→16:20)
[2022-11-18] MEDS: METRONIDAZOLE 500mg IVPB 500 MG/100 ML BAG IV SCH ×3 (03:31→16:20)
[2022-11-18] MEDS ORDERED: METRONIDAZOLE 500mg IVPB 500 MG/100 ML BAG IV ONE ×2 (03:48→08:54)
[2022-11-18 05:12] LABS: Hematocrit 37.8 % (36.0-45.0); Lymphocytes % 22.9 % (15.3-44.8); MCV 108.1 fL (80-100); MPV 8.7 fL (7.6-11.3); Platelets 259 thou/uL (152-406); RBC Red Blood Cell Count 3.49 M/uL (3.86-4.86)
--- NOTE | 2022-11-18 07:46 | P.PN ---
Date of Service: 11/18/22 Subjective: NGT placed yesterday feeling better today abdominal pain/bloating improving no vomiting today no acute events overnight ROS: 10 point ROS as noted above, otherwise negative Physical Exam: GEN: Alert, oriented, NAD, NGT in place HEENT: Normal conjunctiva, sclera anicteric CV: Regular rate and rhythm, no edema Pulm: Nonlabored respirations on room air ABD: Soft, nontender, nondistended; +umbilical hernia Neuro: Normal speech, normal affect NGT in place vitals reviewed Problem List: High-grade small bowel obstruction with large umbilical hernia Hypokalemia Atrial fibrillation on chronic anticoagulation Chronic diastolic CHF COPD on home O22.5 L; chronic DARIO Hypertension Hyperlipidemia Hypothyroidism High-grade small bowel obstruction with large umbilical hernia CT abdomen (11/18): High-grade small bowel obstruction with transition point along the distal small bowel, present at the neck of a large umbilical hernia. Mild wall thickening of the nondistended small bowel within the hernia sac, with edema within the leading mesenteric suggesting segmental enteritis General surgery - Dr. Little consulted Continue IVF while NPO start PPN; pt reports not eating anything in ~7-8 days Continue empiric cipro / flagyl (11/18-) PRN pain medications and antiemetics. Serial abdominal exams. NGT in place to LIWS Hypokalemia Replaced in ED, protocol in place Atrial fibrillation on chronic anticoagulation Has not been taking her Eliquis since morning of 11/16/2022. Surgery following closely, may need intervention, will proceed with SCDs for now. If surgery is not necessary or once cleared after surgery will need to start Lovenox/Eliquis. Chronic diastolic CHF Appears compensated at this time continue gentle IVF. COPD on home O22.5 L Continue supplemental oxygen, PRN nebs DARIO CPAP at night ok as long as NGT to LIWS Hypertension Hyperlipidemia Hypothyroidism Confirm home medications, restart as appropriate / once taking PO VTE: SCD Code: DNR Dispo: Home ~2 days
[2022-11-18] MEDS ORDERED: PNEUMOCOCCAL VACCINE 0.5 ML IMVAC ONE (08:00)
[2022-11-18] MEDS ORDERED: CIPROFLOXACIN 400mg IV 400 MG/200 ML BAG IV ONE (08:54)
[2022-11-18] MEDS: CIPROFLOXACIN 400mg IV 400 MG/200 ML BAG IV SCH ×2 (09:00→21:10)
[2022-11-18 09:32] LABS: ALT/SGPT 22 U/L (13-56); AST/SGOT 29 U/L (15-37); Alkaline Phosphatase 58 U/L (45-117); BUN Blood Urea Nitrogen 10 mg/dL (7-18); Bilirubin Total 0.7 mg/dL (0.2-1.0); Glomerular Filtration Rate 101 ml/min (=/>90); Glucose Level 113 mg/dL (74-106); Protein, Total 6.5 g/dL (6.4-8.2); Sodium Level 133 mEq/L (136-145)
[2022-11-18 09:33] LABS: Bicarbonate > 45 mEq/L (21-32)
--- NOTE | 2022-11-18 12:39 | CON ---
Date of Consultation: 11/17/2022 Brief History Of Present Illness: The patient is a 62-year-old female with a history of atrial fibri llation, chronic anticoagulation, chronic diastolic congestive heart failure, COPD, hypertension, hyp erlipidemia, hypothyroidism, obstructive sleep apnea, and severe morbid obesity, who presents from [facility] emergency department with vomiting, abdominal pain, decreased p.o. intake beginning approximately 1 week ago on Wednesday. She states that her p.o. intake continued to decline. She was able to tolerat e some liquids, but she continued to have intermittent nausea, vomiting, and was unable to tolerate s ignificant p.o. intake. She has had a large ventral hernia which she has been aware of for some time . She has never had any acute problems with that at this point. She has continued to have normal edgar wel function, but cannot recall anything related to her passage of gas in years. She states that sin ce being brought to the hospital, she has significant improvement of her symptoms. Prior to receivin g any medication, she has had decreased nausea and vomiting with antiemetic medication, which is the only medication she has received prior to my examination. 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 Past Surgical History: Includes and hip and ankle surgery. Social History: She is unemployed after last fall. Lives with the family. She denies alcohol or re creational drug use. She does have a significant past tobacco use history. Family History: Significant for gastric cancer in her mother. Allergies: SHE DENIES ANY ALLERGIES. Medications: Home medications include acetaminophen, Lasix, Lipitor, Dulera, Betapace, Aldactone, Pr oventil, Eliquis, Tessalon, Lasix, Atrovent, Aldactone, prednisone. Review of Systems: A 10-point review of systems other than HPI, denies. Physical Examination: Vital Signs: At the time of my examination were a pulse rate of 80, blood pressure 155/80, respirator y rate 18, SpO2 97% on room air. General: At the time of my examination; she is awake, alert, oriented. She is super morbid obese wi th a BMI of 57. HEENT: She is normocephalic. Sclerae anicteric. Mucous membranes moist. Oropharynx clear. She tian s very poor dentition with multiple dental caries and broken teeth. Neck: Supple without JVD. Chest: Normal expansion and excursion. Cardiovascular: Regular rate and rhythm. Pulmonary: Clear to auscultation bilaterally. Abdomen: Soft with mild global tenderness to palpation. She has a large ventral hernia, which is ir reducible. There is mild tenderness in this area. No rebound. No guarding. No focal peritonitis. Pain is only present with deep palpation and is mild. Musculoskeletal: No clubbing or cyanosis, but she does have bilateral extremity edema. Skin: Otherwise warm and dry. Laboratory Data: Revealed a white blood cell count of 5.5, hemoglobin of , hematocrit of 4 4.0, platelet count was 284. Sodium 138, potassium 2.9, chloride 77, carbon dioxide 40, BUN was 12, creatinine 0.6, glucose 102, lactic acid 1.0, total bilirubin 1.0, AST 34, ALT 29, alkaline phosphata se 70, lipase is 127. UA was turbid, 4+ ketones, 1+ bilirubin, 2+ urobilin, 5-10 red blood cells, 1+ total protein. She had imaging performed, which included a CT of the abdomen and pelvis, which was officially read as high-grade small bowel obstruction with transition point along the distal small edgar wel present at the neck of a large umbilical hernia, mild wall thickening and nondistended small jefferson l within the hernia sac with edema within the mesenteric suggesting segmental enteritis. Other incidental findings noted. She has hardware in the right total hip. No free air, free fluid, or fluid collections. Assessment And Plan: This is a 62-year-old woman, who comes in with super morbid obesity and a large ventral approximately 6 cm hernia with partial small bowel obstruction. 1.IV fluid hydration. 2.NG tube decompression. 3.Serial abdominal exams. 4.As the patient has no evidence of bowel ischemia or bowel compromise at this time, I will recommen d nonoperative management initially and do serial abdominal exams. If her exam worsens or there was any nonprogression, I have explained risks, benefits, alternatives of laparoscopic possible open vent ral hernia repair, possible bowel resection including, but not limited to bleeding, infection, damage to surrounding tissue, need for further operation and procedures, trouble related to mesh, need for further operation procedures, heart attacks, strokes, blood clots, and other unforeseen related compl ication related to the perioperative period and anesthesia. The patient agrees to proceed as indicat ed. Thank you for this interesting consult. BLUE/CARITO Voice ID: [id number] Report ID: [id number]
[2022-11-18 16:40] LABS: Phosphorus 3.1 mg/dL (2.5-4.9); Prealbumin 13.8 mg/dL (20-40)
[2022-11-18] MEDS: AA 4.25 %/D5W/ELECTROLYTES 2,000 ML, Lipids 20% 250 ML with MULTIVITAMINS INJ 10 ML IV SCH ×3 (16:54)
[2022-11-18] MEDS ORDERED: DEXTROSE 10%-WATER 500 ML IV SCH (17:00)
--- NOTE | 2022-11-18 18:27 | EKG ---
Test Date: 2022-11-17 Test Time: 19:17:14 Community Engagement Coordinator: ROSALES MEASUREMENT RESULTS: Intervals: Rate: 97 FL: 170 QRSD: 74 QT: 372 QTc: 472 [place]: P: 79 FL: 170 QRS: 85 T: 50 INTERPRETIVE STATEMENTS: Normal sinus rhythm Right atrial enlargement Borderline ECG Compared to ECG 04/13/2022 00:53:34 Atrial abnormality now present Atrial fibrillation no longer present Ventricular premature complex(es) no longer present Myocardial infarct finding no longer present Electronically Signed On 11-18-22 18:25:26 CDT by Vladimir Julien
[2022-11-18] MEDS ORDERED: HOME MED 1 EA UNK (Budesonide/Glycopyr/Formoterol [Breztri Aerosphere Inhaler] 10.7 GM Hfa IH SCH (21:00)
[2022-11-18] MEDS: DULERA 200/5 (MOMETASONE/FORMOTEROL) INHALER IH SCH (23:21)
[2022-11-19] MEDS: METRONIDAZOLE 500mg IVPB 500 MG/100 ML BAG IV SCH ×3 (01:39→15:59)
[2022-11-19 02:56] LABS: Absolute Lymphocytes (CBC) 0.8 K/uL (0.7-4.9); Hematocrit 35.8 % (36.0-45.0); Lymphocytes % 16.6 % (15.3-44.8); MCV 108.6 fL (80-100); MPV 8.9 fL (7.6-11.3); Platelets 250 thou/uL (152-406)
[2022-11-19 03:16] LABS: Albumin 2.6 g/dL (3.4-5.0); Bilirubin Total 0.6 mg/dL (0.2-1.0); Protein, Total 5.8 g/dL (6.4-8.2)
[2022-11-19 03:17] LABS: Potassium 2.6 mEq/L (3.5-5.1)
[2022-11-19] MEDS: D5.45NS W/KCL 20MEQ 1,000 ML IV SCH ×2 (03:34→15:58)
[2022-11-19] MEDS: KCL 20 MEQ/100 mL IVPB 20 MEQ/100 ML BAG IV SCH ×3 (03:35→10:34)
[2022-11-19] MEDS: ONDANSETRON 4 MG/2 ML VIAL IV PRN (03:39)
[2022-11-19] MEDS ORDERED: NA CHLORIDE 0.9% 0 ML ONE (04:19)
--- NOTE | 2022-11-19 07:10 | P.PN ---
Date of Service: 11/19/22 Subjective: Doing okay abdominal pain slowly improving ; NGT remains to LIWS no acute events overnight no BM, no n/v, +afebrile ROS: 10 point ROS as noted above, otherwise negative Physical Exam: GEN: Alert, oriented, NAD, NGT in place HEENT: Normal conjunctiva, sclera anicteric CV: Regular rate and rhythm, no edema Pulm: Nonlabored respirations on 3L NC ABD: Soft, +umbilical hernia with mild discomfort on deep palpation Neuro: Normal speech, normal affect NGT in place vitals reviewed Problem List: High-grade small bowel obstruction with large umbilical hernia Hypokalemia Atrial fibrillation on chronic anticoagulation Chronic diastolic CHF COPD on home O22.5 L; chronic DARIO Hypertension Hyperlipidemia Hypothyroidism High-grade small bowel obstruction with large umbilical hernia CT abdomen (11/18): High-grade small bowel obstruction with transition point along the distal small bowel, present at the neck of a large umbilical hernia. Mild wall thickening of the nondistended small bowel within the hernia sac, with edema within the leading mesenteric suggesting segmental enteritis KUB xray (11/19): Flank distention with moderate central small-bowel dilation General surgery - Dr. Little consulted cont PPN; pt reports not eating anything in ~7-8 days Continue empiric cipro / flagyl (11/18-) PRN pain medications and antiemetics. Serial abdominal exams. NGT in place to LIWS Started PPI 11/19 Dr. Little considering surgery tomorrow if no improvement Hypokalemia Replaced in ED, protocol in place Atrial fibrillation on chronic anticoagulation Has not been taking her Eliquis since morning of 11/16/2022. Surgery following closely, may need intervention, will proceed with SCDs for now. Chronic diastolic CHF Appears compensated at this time continue gentle IVF COPD on home O22.5 L Continue supplemental oxygen, PRN nebs DARIO CPAP at night ok as long as NGT to LIWS Hypertension Hyperlipidemia Hypothyroidism Confirm home medications, restart as appropriate / once taking PO VTE: SCD Code: DNR Dispo: Home ~2-3 days
[2022-11-19] MEDS: CIPROFLOXACIN 400mg IV 400 MG/200 ML BAG IV SCH ×2 (07:52→21:46)
[2022-11-19] MEDS: DULERA 200/5 (MOMETASONE/FORMOTEROL) INHALER IH SCH ×2 (07:53→21:48)
[2022-11-19] MEDS: ALBUTEROL 2.5 MG/3 ML NEB SOL NEB PRN ×2 (09:00→22:35)
[2022-11-19] MEDS: IPRATROPIUM BROM 0.5MG/2.5ML NEB PRN ×2 (09:00→22:35)
--- NOTE | 2022-11-19 09:41 | RAD REPORT ---
EXAM DESCRIPTION: RAD - Abdomen 1 View (KUB) - 11/19/2022 8:33 am CLINICAL HISTORY: sbo / hernia, f/u COMPARISON: Abdomen Pelvis W Contrast dated 11/17/2022 TECHNIQUE: Single AP view of the abdomen. FINDINGS: Enteric tube in place. Flank distension with moderate central small bowel dilation. No air -fluid levels, free air, or pneumatosis. No suspicious calcifications. No significant bony abnormality. IMPRESSION: Flank distention with moderate central small-bowel dilation.
[2022-11-19] MEDS: SODIUM CHLORIDE 0.9% 10ML INJ IV SCH (10:29)
[2022-11-19] MEDS: PANTOPRAZOLE 40 MG INJ IVP SCH (10:35)
[2022-11-19] MEDS: MORPHINE 4 MG/ML SYR IV PRN (12:31)
[2022-11-19] MEDS: AA 4.25 %/D5W/ELECTROLYTES 2,000 ML IV SCH (15:59)
[2022-11-19 20:50] LABS: Potassium 3.4 mEq/L (3.5-5.1)
[2022-11-20] MEDS: METRONIDAZOLE 500mg IVPB 500 MG/100 ML BAG IV SCH ×3 (00:30→18:20)
[2022-11-20 03:30] LABS: Absolute Lymphocytes (CBC) 0.8 K/uL (0.7-4.9); Lymphocytes % 16.5 % (15.3-44.8); MCV 109.2 fL (80-100); MPV 8.7 fL (7.6-11.3); Platelets 242 thou/uL (152-406); RBC Red Blood Cell Count 3.29 M/uL (3.86-4.86)
[2022-11-20 03:51] LABS: Albumin 2.6 g/dL (3.4-5.0); Bilirubin Total 0.5 mg/dL (0.2-1.0); Potassium 3.3 mEq/L (3.5-5.1); Protein, Total 5.7 g/dL (6.4-8.2)
[2022-11-20] MEDS: KCL 20 MEQ/100 mL IVPB 20 MEQ/100 ML BAG IV SCH ×2 (04:19→07:31)
[2022-11-20] MEDS: MORPHINE 4 MG/ML SYR IV PRN ×2 (04:31→11:50)
--- NOTE | 2022-11-20 06:55 | P.PN ---
Date of Service: 11/20/22 Subjective: Feeling ~same as yesterday; no improvement no acute events overnight afebrile Surgery later today ROS: 10 point ROS as noted above, otherwise negative Physical Exam: GEN: Alert, oriented, NAD, NGT in place HEENT: Normal conjunctiva, sclera anicteric CV: Regular rate and rhythm, no edema Pulm: Nonlabored respirations on 3L NC ABD: Soft, +umbilical hernia with mild discomfort on deep palpation Neuro: Normal speech, normal affect NGT in place vitals reviewed Problem List: High-grade small bowel obstruction with large umbilical hernia Hypokalemia Atrial fibrillation on chronic anticoagulation Chronic diastolic CHF COPD on home O22.5 L; chronic DARIO Hypertension Hyperlipidemia Hypothyroidism High-grade small bowel obstruction with large umbilical hernia CT abdomen (11/18): High-grade small bowel obstruction with transition point along the distal small bowel, present at the neck of a large umbilical hernia. Mild wall thickening of the nondistended small bowel within the hernia sac, with edema within the leading mesenteric suggesting segmental enteritis KUB xray (11/19): Flank distention with moderate central small-bowel dilation General surgery - Dr. Little consulted cont PPN; pt reports not eating anything in ~7-8 days Continue empiric cipro / flagyl (11/18-) PRN pain medications and antiemetics. NGT in place to LIWS Cont PPI Tentative plan for surgery today d/t no improvement (11/20) Hypokalemia Replaced in ED, protocol in place Atrial fibrillation on chronic anticoagulation Has not been taking her Eliquis since morning of 11/16/2022. SCDs for now given tentative plan for surgery Chronic diastolic CHF Appears compensated at this time continue IVF COPD on home O22.5 L Continue supplemental oxygen, PRN nebs DARIO CPAP at night ok as long as NGT to LIWS Hypertension Hyperlipidemia Hypothyroidism Confirm home medications, restart as appropriate / once taking PO VTE: SCD - pending surgery Code: DNR Dispo: Home ~3 days Pending further improvement
[2022-11-20] MEDS: D5.45NS W/KCL 20MEQ 1,000 ML IV SCH ×2 (07:32→18:19)
[2022-11-20] MEDS: SODIUM CHLORIDE 0.9% 10ML INJ IV SCH (09:00)
[2022-11-20] MEDS: DULERA 200/5 (MOMETASONE/FORMOTEROL) INHALER IH SCH ×2 (09:41→21:02)
[2022-11-20] MEDS: CIPROFLOXACIN 400mg IV 400 MG/200 ML BAG IV SCH ×2 (09:42→21:01)
[2022-11-20] MEDS: IPRATROPIUM BROM 0.5MG/2.5ML NEB PRN (10:10)
[2022-11-20] MEDS: ALBUTEROL 2.5 MG/3 ML NEB SOL NEB PRN (10:10)
[2022-11-20] MEDS ORDERED: PANTOPRAZOLE 40 MG INJ IVP SCH (10:12)
[2022-11-20] MEDS ORDERED: SODIUM CHLORIDE 0.9% 10ML INJ IV SCH (10:12)
[2022-11-20] MEDS: PANTOPRAZOLE 40 MG INJ IVP SCH (10:19)
[2022-11-20] MEDS ORDERED: Ringers Lactate 1,000 ML IV ONE ×2 (13:07→15:25)
[2022-11-20] MEDS ORDERED: CEFAZOLIN SODIUM 2 GM/VIAL ONE (13:13)
[2022-11-20] MEDS ORDERED: FENTANYL CITR 100 MCG/2 ML ONE ×2 (13:14→14:27)
[2022-11-20] MEDS ORDERED: propofoL 200 MG/20 ML VIAL IV ONE (13:14)
[2022-11-20] MEDS ORDERED: MIDAZOLAM HCL 2 MG/2 ML INJ ONE (13:14)
[2022-11-20] MEDS ORDERED: LIDOCAINE 2% MPF 5 ML VIAL ONE (13:15)
[2022-11-20] MEDS ORDERED: ONDANSETRON 4 MG/2 ML VIAL ONE ×2 (13:15→14:27)
[2022-11-20] MEDS ORDERED: BUPIVACAINE 0.25% PF 10 ML VIAL ONE (13:19)
[2022-11-20] MEDS ORDERED: SUCCINYLCHOLINE 20 MG/ML (10 ML) IV ONE (13:20)
[2022-11-20] MEDS ORDERED: ROCURONIUM 50 MG/5 ML VIAL IV ONE (13:25)
[2022-11-20] MEDS ORDERED: dexAMETHasone 10 MG/ML VIAL ONE (14:24)
[2022-11-20] MEDS ORDERED: LABETALOL 20 MG/4ML SYRINGE IV ONE (14:37)
[2022-11-20] MEDS ORDERED: VECURONIUM 10 MG/VIAL IV ONE (14:57)
--- NOTE | 2022-11-20 16:18 | P.OP ---
Preoperative diagnosis: Bowel Obstruction due to hernia Postoperative diagnosis: Bowel Obstruction due to hernia Primary procedure: Exploraratory Laparoscopy Secondary procedure: Hybrid open laparotomy repair of ventral incarcerated hernia Other procedure(s): Laparoscopic Adhesiolysis > 2 hours Anesthesia: GETA + Local Estimated blood loss: 200cc Specimen: Hernia Sack, Hernia Contents - omenatal adipose Findings: incarcerated colon, small bowel, omentum, severe adhesions in hernia sack Complications: None Drain(s): Nasogastric, Urinary catheter Transferred to: ICU Condition: Good
[2022-11-20] MEDS ORDERED: GLYCOPYRROLATE 0.2 MG/ML SYR ONE (16:19)
[2022-11-20] MEDS ORDERED: NEOSTIGMINE 1 MG/ML -10 ML VIAL ONE (16:24)
[2022-11-20] MEDS ORDERED: NALOXONE 0.4 MG/ML VIAL ONE (16:42)
[2022-11-20] MEDS ORDERED: SUGAMMADEX SODIUM 200 MG/2 ML VIAL IV ONE (16:53)
[2022-11-20] MEDS ORDERED: INSULIN -REGULAR HUMAN 50 UNIT/0.5 ML ML SQ SCH (17:07)
[2022-11-20] MEDS ORDERED: D10W 250 ML BAG IV PRN (18:15)
[2022-11-20] MEDS ORDERED: GLUCAGON 1 MG/VIAL IM PRN (18:15)
[2022-11-20] MEDS: HYDROMORPHONE HCL 1 MG/ML INJ IV PRN ×2 (18:17→21:01)
[2022-11-20] MEDS: AA 4.25 %/D5W/ELECTROLYTES 2,000 ML, Lipids 20% 250 ML with MULTIVITAMINS INJ 10 ML IV SCH ×3 (18:20)
[2022-11-20] MEDS: INSULIN -REGULAR HUMAN 50 UNIT/0.5 ML ML SQ SCH (18:50)
[2022-11-20] MEDS: Mupirocin NASAL 2 APPL/1 GM TUBE NAS SCH (21:01)
--- NOTE | 2022-11-20 21:06 | OP ---
Date of Procedure: 11/20/2022 Surgeon: Karsten Little MD, Preoperative Diagnosis: Bowel obstruction due to ventral hernia. Postoperative Diagnosis: Bowel obstruction due to ventral hernia. Procedures Performed: 1.Exploratory laparoscopy to open mini-laparotomy. 2.Primary repair of incarcerated ventral hernia. 3.Laparoscopic adhesiolysis greater than 2 hours. Anesthesia: General endotracheal plus local with 0.25% Marcaine. Estimated Blood Loss: About 200 cc. Specimens: Hernia sac and hernia contents, where were omental adipose findings, incarcerated colon, small bowel, omentum, and severe adhesions within the hernia sac itself. Complications: None. Drains: Nasogastric and urinary catheter remained in place. Patient was transferred ICU in good con dition. Procedure In Detail: After adequate anesthesia was achieved, a 5 mm 0-degree optical trocar was intr oduced in the abdomen in the left upper quadrant without evidence of complication. Insufflation was obtained to 15 mmHg at this time. There was no injury to vital structure in the abdomen. The hernia was visualized containing small bowel, colon, and omentum within the midline ventral hernia near the periumbilical position. A total of 5, 5 mm trocars were placed, 1 in the right mid abdomen, 1 right upper quadrant, 1 central epigastrium, 1 left upper quadrant, and 1 left mid abdomen and 12 mm left lower quadrant trocar was placed. All trocars were placed under direct visualization without evidenc e of complication. Attempted adhesiolysis was performed for several hours attempting to reduce the h ernia, which was partially successful, but incomplete as there were significant adhesions appreciated , which could not be approached from the laparoscopic approach and as such I opted to convert to a hy brid approach at this point. Leaving pneumoperitoneum in place, I made a mini-laparotomy incision in the periumbilical position down through subcutaneous tissues using a 10 blade. I then dissected cir cumferentially the hernia sac, opened the hernia sac safely through superior incision using Metzenbau m scissors. When the hernia sac was opened, I continued meticulous dissection using a combination of electrocautery, ligature, and blunt dissection to remove the adhesions between the hernia sac and he rnia contents, which were colon, small bowel, and omentum. Partial omentectomy was performed at this point, was sent off for pathologic examination with hernia contents. I had to slightly enlarge the hernia defect as the incarceration was significant, not allowing for safe reduction of the bowel into the intraperitoneal compartment. I then reduced the bowel after slightly opening in the superior an d inferior direction approximately 0.5 cm to allow for reduction of the hernia contents to the normal anatomic position. After this was performed, I removed the hernia sac in its entirety using electro cautery, sent off for pathologic examination. I then proceeded to close the her midline abdominal he rnia defect using running #1 looped PDS suture with good approximation of the tissues and good abdomi nal closure. At this point, the area was copiously irrigated and closed with interrupted rashard. I then insufflated the abdomen once again with previously placed trocars and inspected the closure, wh ich was found to be good and intact at this point. I opted not to place mesh at this point due to th is prolonged procedure and having the open approach, concern for infection was considered at this gerald e as there was quite a bit of fluid translocation from the bowel obstruction. The defect was closed at this point primarily and no mesh reinforcement was placed at this point. I then copiously irrigat ed the abdomen with approximately 3 L of saline and suctioned out completely dry. No additional hemo static maneuvers required. Patient was positioned back in neutral position. Fatty steatotic liver w as appreciated. I suctioned out the remaining effluent at this point. The bowel appeared to be inta ct at this point without any obvious bowel injury. I then closed the 12 mm trocar site using a Deae r-Malinda suture passer with 0 Vicryl in an interrupted fashion with good approximation of tissues. The abdomen was completely desufflated under direct visualization without evidence of complication. All remaining trocars were removed. All skin incisions were copiously irrigated and closed with int errupted rashard. At this point, the [place] drain was placed in the umbilical defect area as this w as a large cavitary space and this would allow for drainage. At this point, a sterile dressing was p laced over top. Patient tolerated the procedure well without evidence of any complication and transferred to ICU in stable condition. All counts were correct at the end of the case. BLUE/ASHOKL Voice ID: [id number] Report ID: [id number]
[2022-11-20 22:49] LABS: Hematocrit 33.1 % (36.0-45.0)
[2022-11-21] MEDS: INSULIN -REGULAR HUMAN 50 UNIT/0.5 ML ML SQ SCH ×4 (01:29→18:15)
[2022-11-21] MEDS: METRONIDAZOLE 500mg IVPB 500 MG/100 ML BAG IV SCH ×3 (01:29→17:24)
[2022-11-21] MEDS: HYDROMORPHONE HCL 1 MG/ML INJ IV PRN ×5 (02:11→22:27)
[2022-11-21 04:55] LABS: Absolute Lymphocytes (CBC) 0.4 K/uL (0.7-4.9); Hematocrit 33.5 % (36.0-45.0); Lymphocytes % 3.8 % (15.3-44.8); MCV 108.8 fL (80-100); Platelets 267 thou/uL (152-406); RBC Red Blood Cell Count 3.08 M/uL (3.86-4.86)
[2022-11-21 05:17] LABS: Albumin 2.3 g/dL (3.4-5.0); Bilirubin Total 0.4 mg/dL (0.2-1.0); Phosphorus 2.9 mg/dL (2.5-4.9); Potassium 4.8 mEq/L (3.5-5.1); Protein, Total 5.5 g/dL (6.4-8.2)
--- NOTE | 2022-11-21 06:50 | P.PN ---
Date of Service: 11/21/22 Subjective: Doing okay, feeling a little better today no new / worsening problems afebrile SOB on exertion, +cough ROS: 10 point ROS as noted above, otherwise negative Physical Exam: GEN: Alert, oriented, NAD, NGT in place HEENT: Normal conjunctiva, sclera anicteric CV: Regular rate and rhythm, no edema Pulm: Non-labored respirations on 3L NC, b/l wheeze ABD: Soft, abdominal Binder in place Neuro: Normal speech, normal affect NGT in place vitals reviewed Problem List: High-grade small bowel obstruction with large umbilical hernia; now s/p ex-lap, repair of ventral incarcerate hernia (11/20) Hypokalemia Atrial fibrillation on chronic anticoagulation Chronic diastolic CHF COPD on home O22.5 L; chronic DARIO Hypertension Hyperlipidemia Hypothyroidism High-grade small bowel obstruction with large umbilical hernia now s/p exploraratory laparoscopy, repair of ventral incarcerated hernia, Laparoscopic Adhesiolysis > 2 hours (11/20) CT abdomen (11/18): High-grade SBO, transition point at distal small bowel, present at the neck of a large umbilical hernia. KUB xray (11/19): Flank distention with moderate central small-bowel dilation General surgery - Dr. Little consulted PPN started 11/18; pt reports not eating anything in ~7-8 days PICC placed last night; transition to TPN 11/21 Continue empiric cipro / flagyl (11/18-) PRN pain medications and antiemetics. NGT in place to LIWS with minimal drainage Cont PPI abdominal binder PT consult Hypokalemia Replaced in ED, protocol in place Atrial fibrillation on chronic anticoagulation Has not been taking her Eliquis since morning of 11/16/2022. SCDs for now - no anticoagulation for 24 hrs post surgery Chronic diastolic CHF Appears compensated at this time continue PPN while NPO COPD on home O22.5 L Continue supplemental oxygen, PRN nebs wheeze on exam, advised incentive spirometer recommended for patient to have family bring in her inhaler pulm consulted DARIO CPAP at night ok as long as NGT to LIWS Hypertension Hyperlipidemia Hypothyroidism Confirm home medications, restart as appropriate / once taking PO VTE: SCD - no anticoagulation for 24 hrs post surgery Code: DNR Dispo: Home ~3 days Pending further improvement
[2022-11-21] MEDS: DULERA 200/5 (MOMETASONE/FORMOTEROL) INHALER IH SCH ×2 (07:36→20:23)
[2022-11-21] MEDS: CIPROFLOXACIN 400mg IV 400 MG/200 ML BAG IV SCH ×2 (07:37→19:56)
[2022-11-21] MEDS: PANTOPRAZOLE 40 MG INJ IVP SCH (07:37)
[2022-11-21] MEDS: Mupirocin NASAL 2 APPL/1 GM TUBE NAS SCH ×2 (07:37→20:23)
[2022-11-21] MEDS: IPRATROPIUM BROM 0.5MG/2.5ML NEB PRN ×2 (08:15→14:10)
[2022-11-21] MEDS: ALBUTEROL 2.5 MG/3 ML NEB SOL NEB PRN ×2 (08:15→14:10)
[2022-11-21] MEDS: SODIUM CHLORIDE 0.9% 10ML INJ IV SCH (09:00)
--- NOTE | 2022-11-21 11:51 | RAD REPORT ---
EXAM DESCRIPTION: RAD - Chest Single View - 11/21/2022 3:36 am CLINICAL HISTORY: S/P PICC insertion COMPARISON: None. TECHNIQUE: XR CHEST 1 VIEW 11/21/2022 2:54 AM CDT FINDINGS: The heart is enlarged. Lungs are clear without consolidation, atelectasis, mass or edema. There is no pleural effusion. There is no pneumothorax. There are no acute osseous findings. NG tube tip is in the stomach. Left PICC line tip is in the upper SVC. IMPRESSION: Left PICC line in place. Electronically signed by: Artem Mckinley MD 11/21/2022 5:45 AM CDT Due to temporary technical issues with the PACS/Fluency reporting system, reports are being signed by the in house radiologists without review as a courtesy to insure prompt reporting. The interpreting radiologist is fully responsible for the content of the report.
[2022-11-21] MEDS: D5.45NS W/KCL 20MEQ 1,000 ML IV SCH (16:20)
[2022-11-21] MEDS ORDERED: D5.45NS W/KCL 20MEQ 1,000 ML IV SCH (17:13)
[2022-11-21] MEDS: AA 4.25 %/D5W/ELECTROLYTES 2,000 ML IV SCH (17:24)
[2022-11-22] MEDS: INSULIN -REGULAR HUMAN 50 UNIT/0.5 ML ML SQ SCH ×4 (00:15→18:08)
[2022-11-22] MEDS: METRONIDAZOLE 500mg IVPB 500 MG/100 ML BAG IV SCH ×3 (00:22→17:22)
[2022-11-22 04:42] LABS: Absolute Lymphocytes (CBC) 1.2 K/uL (0.7-4.9); Hematocrit 25.9 % (36.0-45.0); Lymphocytes % 12.6 % (15.3-44.8); MCV 108.6 fL (80-100); MPV 8.6 fL (7.6-11.3); Platelets 228 thou/uL (152-406); RBC Red Blood Cell Count 2.38 M/uL (3.86-4.86)
[2022-11-22 04:58] LABS: Phosphorus 2.7 mg/dL (2.5-4.9); Potassium 4.7 mEq/L (3.5-5.1)
[2022-11-22 05:28] LABS: Blood Morphology Comment NOTED (NOT SEEN); Macrocytosis 1+; Platelet Estimate ADEQ
[2022-11-22] MEDS: IPRATROPIUM BROM 0.5MG/2.5ML NEB PRN (06:00)
[2022-11-22] MEDS: ALBUTEROL 2.5 MG/3 ML NEB SOL NEB PRN (06:00)
[2022-11-22] MEDS: HYDROMORPHONE HCL 1 MG/ML INJ IV PRN ×3 (06:29→21:43)
--- NOTE | 2022-11-22 06:47 | P.PN ---
Date of Service: 11/22/22 Subjective: feels ~same as yesterday 100ml emptied from NGT overnight Sat in chair for ~3 hours yesterday no acute events overnight ROS: 10 point ROS as noted above, otherwise negative Physical Exam: GEN: Alert, oriented, NAD, fatigued appearing HEENT: Normal conjunctiva, sclera anicteric CV: Regular rate and rhythm, no edema Pulm: Non-labored respirations on 3L NC, b/l wheeze ABD: Soft, abdominal Binder in place, dressing in place Neuro: Normal speech, normal affect NGT in place Sorenson in place vitals reviewed Problem List: High-grade SBO with large umbilical hernia; now s/p ex-lap, repair of ventral incarcerate hernia (11/20) Hypokalemia Atrial fibrillation on chronic anticoagulation Chronic diastolic CHF COPD on home O22.5 L; chronic DARIO Hypertension Hyperlipidemia Hypothyroidism High-grade small bowel obstruction with large umbilical hernia now s/p exploraratory laparoscopy, repair of ventral incarcerated hernia, Laparoscopic Adhesiolysis > 2 hours (11/20) CT abdomen (11/18): High-grade SBO, transition point at distal small bowel, present at the neck of a large umbilical hernia. KUB xray (11/19): Flank distention with moderate central small-bowel dilation General surgery - Dr. Little consulted PPN started 11/18; pt reports not eating anything in ~7-8 days PICC placed ; transition to TPN Continue empiric cipro / flagyl (11/18-) PRN pain medications and antiemetics. NGT in place to LIWS with ~100 ml emptied overnight Cont PPI abdominal binder PT consult Monitor H&H. hgb 9.3 -> 8.8 (11/22) Hypokalemia Replaced, protocol in place Atrial fibrillation on chronic anticoagulation Has not been taking her Eliquis since morning of 11/16/2022. SCDs for now Chronic diastolic CHF Appears compensated at this time continue PPN while NPO COPD on home O22.5 L Continue supplemental oxygen, PRN nebs wheeze on exam, advised incentive spirometer recommended for patient to have family bring in her inhaler pulm consulted DARIO CPAP at night ok as long as NGT to LIWS Hypertension Hyperlipidemia Hypothyroidism Confirm home medications, restart as appropriate / once taking PO VTE: SCD Code: DNR Dispo: Home ~3 days Pending further improvement
[2022-11-22] MEDS: SODIUM CHLORIDE 0.9% 10ML INJ IV SCH (09:00)
[2022-11-22] MEDS: PANTOPRAZOLE 40 MG INJ IVP SCH (09:08)
[2022-11-22] MEDS: CIPROFLOXACIN 400mg IV 400 MG/200 ML BAG IV SCH ×2 (09:08→20:26)
[2022-11-22] MEDS: Mupirocin NASAL 2 APPL/1 GM TUBE NAS SCH ×2 (09:09→20:26)
[2022-11-22] MEDS: DULERA 200/5 (MOMETASONE/FORMOTEROL) INHALER IH SCH ×2 (09:09→20:26)
[2022-11-22] MEDS ORDERED: DULERA 200/5 (MOMETASONE/FORMOTEROL) INHALER IH SCH (09:51)
--- NOTE | 2022-11-22 09:52 | P.CNS ---
Date of Consult: 11/22/22 Reason for Consult: Hypoxemia Chief Complaint: As of breath respiratory failure History of Present Illness: Patient is 62 years of age history of A-fib chronic congestive heart failure COPD active sleep apnea on home oxygen with small bowel obstruction she un derwent expiratory laparotomy does take Breztri at home and in the ICU alert responsive short of breath Allergies No Known Allergies Allergy (Verified 11/17/22 23:23) Home Medications: Acetaminophen [Tylenol Extra Strength] 500 mg PO PRN 10/10/21 Furosemide 20 mg PO TID 10/10/21 Atorvastatin Calcium [Lipitor] 40 mg PO BEDTIME #30 tab 10/13/21 Mometasone/Formoterol [Dulera 200 Mcg/5 Mcg Inhaler] 2 puff IH BID #1 inhaler 10/13/21 Sotalol HCl [Betapace*] 80 mg PO BID 6AM 6PM #60 tab 10/13/21 Spironolactone [Aldactone*] 25 mg PO BID #60 tab 10/13/21 Apixaban [Eliquis] 5 mg PO BID #60 tab 04/19/22 Benzonatate [Tessalon Perle*] 100 mg PO TID PRN #30 cap 04/19/22 Furosemide [Lasix*] 40 mg PO BIDL #60 tab 04/19/22 Spironolactone [Aldactone*] 50 mg PO BID #60 tab 04/19/22 Albuterol Neb [Proventil 0.083% Neb Soln] 2.5 mg NEB Q8HR 11/17/22 Amlodipine Besylate [Norvasc] 10 mg PO BID 11/17/22 Budesonide/Glycopyr/Formoterol [Breztri Aerosphere Inhaler] 2 inhaler IH BID 11/17/22 Ipratropium Neb [Atrovent*] 0.5 mg NEB Q8HR 11/17/22 Potassium Chloride 20 meq PO TID 11/17/22 predniSONE [Deltasone*] 10 mg PO DAILY 11/17/22 - Past Medical/Surgical History Diabetic: No -: COPD -: HTN -: HLD -: DARIO -: Tr Cellulitis -: Chronic diastolic congestive heart failure -: Atrial fibrillation on chronic anticoagulation -: -: hip/ankle surgery Psychosocial/ Personal History: Pt currently unemployed after a fall last year, lives with family - Family History Mother Medical History: Cancer Notes: stomach - Social History Alcohol use: No CD- Drugs: No Caffeine use: No Place of Residence: Home Review of Systems 10-point ROS is otherwise unremarkable General: Weakness Respiratory: Shortness of Breath Physical Examination Temp Pulse Resp BP Pulse Ox 99.2 F 90 13 117/62 92 11/22/22 04:00 11/22/22 06:00 11/22/22 06:00 11/22/22 06:00 11/22/22 05:00 General: Alert, Oriented x3, Mild distress Respiratory: Clear to auscultation bilaterally, Diminished Cardiovascular: No edema, Regular rate/rhythm, Normal S1 S2 Gastrointestinal: Normal bowel sounds, Soft and benign - Problems (1) Respiratory failure Current Visit: Yes Status: Acute Plan: Patient is 62 years of age s/p laparotomy for small bowel obstruction she has multiple medical problems including diastolic heart failure COPD sleep apnea Dillon's scheduled inhaled bronchodilator patient has a nasogastric tube will benefit from BiPAP or CPAP arterial blood gases Qualifiers: Chronicity: unspecified
--- NOTE | 2022-11-22 11:45 | P.PN ---
Subjective Date of Service: 11/21/22 Chief Complaint: As of breath respiratory failure Subjective: Improving (Patient states she has improved abdominal pain but continues to have tenderness over her abdomen after surgery. No acute events otherwise.) Physical Examination - Vital Signs Temperature: 99.2 F Blood Pressure: 117/62 Pulse: 90 Respirations: 13 Pulse Ox (%): 92 - Physical Exam General: Alert, In no apparent distress, Oriented x3, Cooperative HEENT: Mucous membr. moist/pink Neck: Supple, Without JVD or thyroid abnormality Respiratory: Diminished Cardiovascular: Regular rate/rhythm, Edema Gastrointestinal: Other (Soft, morbid obese, appropriate tenderness to palpation globally., [place] in place, Torrie drain in midline cavity draining serous fluid, minimal amount of fluid on dressings at this time, abdominal binder in place, no peritoneal signs.) Musculoskeletal: Swelling Neurological: Normal speech, Normal affect Urinary: Dialysis catheter Assessment And Plan - Current Problems (Diagnosis) (1) Ventral hernia with bowel obstruction Current Visit: Yes Status: Acute Plan: Patient is a 62-year-old woman status post laparoscopic converted to open ventral hernia repair on 11/20/2022 -General/neuro: Continue current pain management regimen with IV Dilaudid. -CVS: No hemodynamic instability at this time, heart rate remains in same range as preoperative, hemoglobin is drifting down however she appears to be positive on fluid balance with a 2 L plus positive fluid balance every day. Hemoglobin every 6 checks have continued at this point without significant drop trending down is likely due to dilutional -Pulm: Continue incentive spirometry every 15 minutes, patient has been noncompliant with this, continue nebulizer treatments and respiratory therapy with respiratory therapist consulted. We will consult Dr. Dodd as patient has history of COPD and he has attended the patient in the past. Appreciate his recommendations. -GI: Patient will likely have a postoperative ileus as there was an extensive dissection required an extensive mobilization of severe scar tissue between: Small bowel in the hernia sac. Continue NG tube decompression, serial exams, wound care to midline leave Torrie and drain to allow for drainage. -FEN: Decrease IV fluids to minimize dilutional effect., Continue electrolyte replacement protocol, TPN via PICC line to continue. -Renal: Adequate but low urine output. Urine has a clear consistency to it leave Sorenson catheter in place at this time for strict management of fluid balance. ID : Continue antibiotic coverage at this point for prophylaxis as the patient had extensive abdominal operation. Prophylaxis: Hold anticoagulation at this time as patient did have Eliquis recently prior to surgery and she did have some oozing this characterized through all cut surfaces incisions and intra-abdominal he. As such continue SCDs. Recommend up in chair and ambulation with assist as soon as possible. To minimize risk of DVT. I explained this with the patient in detail the importance of her ambulating with assistance Lines: Continue NG tube decompression, continue Sorenson catheter at this point, continue PICC line Continue physical therapy to ambulate patient. Endo: Continue Accu-Cheks and insulin replacement protocol.
--- NOTE | 2022-11-22 11:47 | P.PN ---
Subjective Date of Service: 11/22/22 Chief Complaint: As of breath respiratory failure Subjective: Improving (No acute issues overnight patient still has not passed any gas from her bottom. No bowel function, no other acute complaints.) Physical Examination - Vital Signs Temperature: 99.2 F Blood Pressure: 117/62 Pulse: 90 Respirations: 13 Pulse Ox (%): 92 - Physical Exam General: Alert, In no apparent distress, Oriented x3, Cooperative HEENT: Normocephalic, Mucous membr. moist/pink Neck: Supple Respiratory: Diminished Cardiovascular: Regular rate/rhythm, Edema Gastrointestinal: Other (Abdominal exam unchanged. Remains soft obese minimal appropriate tenderness to palpation. Pito in place, Torrie in place, minimal serosanguineous fluid drained from midline. No focal peritonitis no peritoneal signs no guarding. Abdominal binder remains in place.) Musculoskeletal: Swelling Integumentary: No ulcers Neurological: Normal speech, Normal affect Urinary: Sorenson catheter Assessment And Plan - Current Problems (Diagnosis) (1) Ventral hernia with bowel obstruction Current Visit: Yes Status: Acute Plan: Patient is a 62-year-old woman status post laparoscopic converted to open ventral hernia repair on 11/20/2022 -General/neuro: Continue current pain management regimen with IV Dilaudid. -CVS: No hemodynamic instability at this time, heart rate remains in same range as preoperative, hemoglobin is drifting down however she appears to be positive on fluid balance with a 2 L plus positive fluid balance every day. Hemoglobin every 6 checks have continued at this point without significant drop trending down is likely due to dilutional -Pulm: Continue incentive spirometry every 15 minutes, patient has been noncomp liant with this, continue nebulizer treatments and respiratory therapy with respiratory therapist consulted. We will consult Dr. Dodd as patient has history of COPD and he has attended the patient in the past. Appreciate his recommendations. -GI: Patient will likely have a postoperative ileus as there was an extensive dissection required an extensive mobilization of severe scar tissue between: Small bowel in the hernia sac. Continue NG tube decompression, serial exams, wound care to midline leave Torrie and drain to allow for drainage. -FEN: Decrease IV fluids to minimize dilutional effect., Continue electrolyte replacement protocol, TPN via PICC line to continue. -Renal: Adequate but low urine output. Urine has a clear consistency to it leave Sorenson catheter in place at this time for strict management of fluid balance. ID : Continue antibiotic coverage at this point for prophylaxis as the patient had extensive abdominal operation. Prophylaxis: Hold anticoagulation at this time as patient did have Eliquis recently prior to surgery and she did have some oozing this characterized through all cut surfaces incisions and intra-abdominal he. As such continue SCDs. Recommend up in chair and ambulation with assist as soon as possible. To minimize risk of DVT. I explained this with the patient in detail the importance of her ambulating with assistance Lines: Continue NG tube decompression, continue Sorenson catheter at this point, continue PICC line, Torrie drain Continue physical therapy to ambulate patient. Endo: Continue Accu-Cheks and insulin replacement protocol.
[2022-11-22 14:45] LABS: Blood O2 Saturation 98.1 % (92-98.5)
[2022-11-22 17:14] LABS: Hematocrit 26.4 % (36.0-45.0)
[2022-11-22] MEDS: AA 4.25 %/D5W/ELECTROLYTES 2,000 ML IV SCH (17:21)
[2022-11-23] MEDS: INSULIN -REGULAR HUMAN 50 UNIT/0.5 ML ML SQ SCH ×4 (00:15→21:00)
[2022-11-23] MEDS: METRONIDAZOLE 500mg IVPB 500 MG/100 ML BAG IV SCH ×3 (00:16→17:29)
[2022-11-23] MEDS: PANTOPRAZOLE 40 MG INJ IVP SCH ×2 (04:02→09:18)
[2022-11-23 05:00] LABS: Absolute Lymphocytes (CBC) 1.3 K/uL (0.7-4.9); Hematocrit 26.4 % (36.0-45.0); Lymphocytes % 16.6 % (15.3-44.8); MPV 8.4 fL (7.6-11.3); Platelets 270 thou/uL (152-406); RBC Red Blood Cell Count 2.43 M/uL (3.86-4.86)
[2022-11-23 05:04] LABS: MCV 108.8 fL (80-100)
[2022-11-23 05:11] LABS: Magnesium 1.9 mg/dL (1.6-2.4); Phosphorus 2.8 mg/dL (2.5-4.9); Potassium 4.3 mEq/L (3.5-5.1)
--- NOTE | 2022-11-23 07:11 | P.PN ---
Date of Service: 11/23/22 Subjective: abdominal pain ~same as yesterday 50ml emptied from NGT overnight no BM, no flatus, +burping no new / worsening problems ROS: 10 point ROS as noted above, otherwise negative Physical Exam: GEN: Alert, oriented, NAD, sitting up at bedside chair HEENT: Normal conjunctiva, sclera anicteric CV: Regular rate and rhythm, no edema Pulm: Non-labored respirations on 3L NC, mild b/l wheeze ABD: Soft, abdominal Binder in place, dressing in place Neuro: Normal speech, normal affect NGT in place Sorenson in place vitals reviewed Problem List: High-grade SBO with large umbilical hernia; now s/p ex-lap, repair of ventral incarcerate hernia (11/20) Hypokalemia Atrial fibrillation on chronic anticoagulation Chronic diastolic CHF COPD on home O22.5 L; chronic DARIO Hypertension Hyperlipidemia Hypothyroidism High-grade small bowel obstruction with large umbilical hernia now s/p exploraratory laparoscopy, repair of ventral incarcerated hernia, Laparoscopic Adhesiolysis > 2 hours (11/20) CT abdomen (11/18): High-grade SBO, transition point at distal small bowel, present at the neck of a large umbilical hernia. KUB xray (11/19): Flank distention with moderate central small-bowel dilation General surgery - Dr. Little consulted PPN started 11/18; pt reports not eating anything in ~7-8 days PICC placed ; transition to TPN Continue empiric cipro / flagyl (11/18-) PRN pain medications and antiemetics. NGT in place to LIWS with ~50 ml emptied overnight Cont PPI abdominal binder PT consult Monitor H&H. hgb stable; 8.6 -> 8.9 (11/23) Hypokalemia Replaced, protocol in place Atrial fibrillation on chronic anticoagulation Has not been taking her Eliquis since morning of 11/16/2022. SCDs for now Chronic diastolic CHF Appears compensated at this time continue PPN while NPO COPD on home O22.5 L Continue supplemental oxygen, PRN nebs wheeze on exam, advised incentive spirometer recommended for patient to have family bring in her inhaler pulm consulted DARIO CPAP at night ok as long as NGT to LIWS Hypertension Hyperlipidemia Hypothyroidism Confirm home medications, restart as appropriate / once taking PO VTE: SCD Code: DNR Dispo: Home ~3 days Pending further improvement Downgrade from ICU level of care today
[2022-11-23] MEDS: Mupirocin NASAL 2 APPL/1 GM TUBE NAS SCH ×2 (07:33→21:39)
[2022-11-23] MEDS: HYDROMORPHONE HCL 1 MG/ML INJ IV PRN ×2 (07:33→13:25)
[2022-11-23] MEDS: SODIUM CHLORIDE 0.9% 10ML INJ IV SCH (09:00)
[2022-11-23] MEDS: CIPROFLOXACIN 400mg IV 400 MG/200 ML BAG IV SCH ×2 (09:05→21:37)
[2022-11-23] MEDS: DULERA 200/5 (MOMETASONE/FORMOTEROL) INHALER IH SCH ×2 (09:05→21:00)
--- NOTE | 2022-11-23 12:44 | P.PN ---
Subjective Date of Service: 11/23/22 Chief Complaint: COPD respiratory failure obstructive sleep apnea Subjective: Improving (Patient is improving doing better sitting upright having some abdominal discomfort) Review of Systems General: Weakness Respiratory: Shortness of Breath Physical Examination - Vital Signs Temperature: 97.1 F Blood Pressure: 122/67 Pulse: 92 Respirations: 15 Pulse Ox (%): 96 - Physical Exam General: Alert, In no apparent distress, Oriented x3 Respiratory: Clear to auscultation bilaterally, Diminished Cardiovascular: No edema, Normal pulses Assessment And Plan - Current Problems (Diagnosis) (1) Respiratory failure Current Visit: Yes Status: Acute Plan: Admitted with respiratory failure doing much better history of COPD sleep apnea uses Breztri at home has a CPAP of advised patient to bring her own CPAP once t he and nasogastric tube is removed resume her home CPAP Qualifiers: Chronicity: unspecified
[2022-11-23] MEDS: AA 4.25 %/D5W/ELECTROLYTES 2,000 ML, Lipids 20% 250 ML with MULTIVITAMINS INJ 10 ML IV SCH ×3 (17:30)
[2022-11-23] MEDS: ALBUTEROL 2.5 MG/3 ML NEB SOL NEB PRN (20:13)
[2022-11-23] MEDS: IPRATROPIUM BROM 0.5MG/2.5ML NEB PRN (20:13)
[2022-11-23] MEDS: MORPHINE 4 MG/ML SYR IV PRN (21:37)
[2022-11-24] MEDS: METRONIDAZOLE 500mg IVPB 500 MG/100 ML BAG IV SCH ×3 (00:19→16:21)
[2022-11-24 06:08] LABS: Absolute Lymphocytes (CBC) 1.1 K/uL (0.7-4.9); Hematocrit 27.1 % (36.0-45.0); Lymphocytes % 14.5 % (15.3-44.8); MCV 108.1 fL (80-100); MPV 8.4 fL (7.6-11.3); Platelets 272 thou/uL (152-406); RBC Red Blood Cell Count 2.51 M/uL (3.86-4.86)
[2022-11-24 06:17] VITALS: BMI 56.8
[2022-11-24 06:28] LABS: Magnesium 2.1 mg/dL (1.6-2.4); Phosphorus 3.2 mg/dL (2.5-4.9)
[2022-11-24] MEDS: INSULIN -REGULAR HUMAN 50 UNIT/0.5 ML ML SQ SCH ×4 (07:30→21:00)
[2022-11-24] MEDS: ALBUTEROL 2.5 MG/3 ML NEB SOL NEB PRN ×3 (07:45→20:30)
[2022-11-24] MEDS: IPRATROPIUM BROM 0.5MG/2.5ML NEB PRN ×3 (07:45→20:30)
[2022-11-24] MEDS: Mupirocin NASAL 2 APPL/1 GM TUBE NAS SCH ×2 (08:36→21:27)
[2022-11-24] MEDS: CIPROFLOXACIN 400mg IV 400 MG/200 ML BAG IV SCH ×2 (08:36→21:26)
[2022-11-24] MEDS: PANTOPRAZOLE 40 MG INJ IVP SCH (08:37)
[2022-11-24] MEDS: SODIUM CHLORIDE 0.9% 10ML INJ IV SCH (08:37)
[2022-11-24] MEDS: DULERA 200/5 (MOMETASONE/FORMOTEROL) INHALER IH SCH ×2 (08:37→21:00)
[2022-11-24] MEDS: HYDROMORPHONE HCL 1 MG/ML INJ IV PRN ×3 (08:42→21:26)
--- NOTE | 2022-11-24 13:06 | P.PN ---
Subjective Date of Service: 11/24/22 Chief Complaint: COPD respiratory failure obstructive sleep apnea Patient denies any new complaint. She denies abdominal pain. She has been afebrile. Physical Examination - Vital Signs Temperature: 97.7 F Blood Pressure: 126/61 Pulse: 91 Respirations: 17 Pulse Ox (%): 96 Assessment And Plan - Plan Physical Exam: GEN: Alert, oriented, NAD. CV: Regular rate and rhythm, no edema Pulm: Scattered bilateral wheezes, diminished breath sounds bilaterally. ABD: Soft, abdominal Binder in place, dressing in place Neuro: Normal speech, normal affect, no focal motor deficits NGT in place Sorenson in place vitals reviewed Problem List: High-grade SBO with large umbilical hernia; now s/p ex-lap, repair of ventral incarcerate hernia (11/20) Hypokalemia Atrial fibrillation on chronic anticoagulation Chronic diastolic CHF COPD on home O22.5 L; chronic DARIO Hypertension Hyperlipidemia Hypothyroidism High-grade small bowel obstruction with large umbilical hernia now s/p exploraratory laparoscopy, repair of ventral incarcerated hernia, Laparoscopic Adhesiolysis > 2 hours (11/20) CT abdomen (11/18): High-grade SBO, transition point at distal small bowel, present at the neck of a large umbilical hernia. KUB xray (11/19): Flank distention with moderate central small-bowel dilation General surgery - Dr. Little performed laparoscopy followed by open laparotomy with repair of ventral incarcerated hernia. PPN started 11/18; patient tolerating liquid diet She has been on TPN via PICC line. Continue empiric cipro / flagyl (11/18-) PRN pain medications and antiemetics. NG tube removal today Clear liquid diet Cont PPI abdominal binder Continue PT Monitor H&H. Transfuse as needed for hemoglobin less than 7. Hypokalemia Replaced, protocol in place Atrial fibrillation on chronic anticoagulation Has not been taking her Eliquis since 11/16/2022. SCDs for now Chronic diastolic CHF Appears compensated at this time continue TPN COPD on home O22.5 L Continue supplemental oxygen, PRN nebs DARIO CPAP at night. NG tube is out. Hypertension Hyperlipidemia Hypothyroidism Continue home medications, restart as appropriate / once taking PO VTE: SCD Code: DNR Dispo: Home upon discharge
--- NOTE | 2022-11-24 13:22 | P.PN ---
Subjective Date of Service: 11/23/22 Chief Complaint: COPD respiratory failure obstructive sleep apnea Subjective: Improving Physical Examination - Vital Signs Temperature: 97.7 F Blood Pressure: 126/61 Pulse: 91 Respirations: 17 Pulse Ox (%): 96 - Physical Exam General: Alert, In no apparent distress, Cooperative Respiratory: Clear to auscultation bilaterally, Normal air movement Cardiovascular: Regular rate/rhythm Gastrointestinal: Other (soft, mild appropriate TTP, ND, wound minimal drainage, lobito in place, rashard in place.) Neurological: Normal speech Assessment And Plan - Current Problems (Diagnosis) (1) Ventral hernia with bowel obstruction Current Visit: Yes Status: Acute Plan: Patient is a 62-year-old woman status post laparoscopic converted to open ventral hernia repair on 11/20/2022 -General/neuro: Continue current pain management regimen with IV Dilaudid. -CVS: No hemodynamic instability at this time, heart rate remains in same range as preoperative, hemoglobin is tending up @ this time. -Pulm: Continue incentive spirometry every 15 minutes, patient has been noncompliant with this, continue nebulizer treatments and respiratory therapy with respiratory therapist consulted. We will consult Dr. Dodd as patient has history of COPD and he has attended the patient in the past. Appreciate his recommendations. -GI: Patient will likely have a postoperative ileus as there was an extensive dissection required an extensive mobilization of severe scar tissue between: Small bowel in the hernia sac. DC NG tube continue serial exams, wound care to midline leave Lob[place] and drain to allow for drainage. -FEN: Decrease IV fluids to minimize dilutional effect., Continue electrolyte replacement protocol, TPN via PICC line to continue. -Renal: Adequate but low urine output. Urine has a clear consistency to it leave Pisano catheter in place at this time for strict management of fluid balance. DC pisano ID : Continue antibiotic coverage at this point for prophylaxis as the patient had extensive abdominal operation. Prophylaxis: start anticoagulation at this time. As such continue SCDs. Recommend up in chair and ambulation with assist as soon as possible. To minimize risk of DVT. I explained this with the patient in detail the importance of her ambulating with assistance Lines: DC NG tube decompression, DC Pisano catheter at this point, continue PICC line, [place] drain Continue physical therapy to ambulate patient. Endo: Continue Accu-Cheks and insulin replacement protocol.
--- NOTE | 2022-11-24 13:24 | P.PN ---
Subjective Date of Service: 11/24/22 Chief Complaint: COPD respiratory failure obstructive sleep apnea Subjective: Improving Patient refused to remove NGT yesterday Physical Examination - Vital Signs Temperature: 97.7 F Blood Pressure: 126/61 Pulse: 91 Respirations: 17 Pulse Ox (%): 96 - Physical Exam General: Alert, In no apparent distress, Cooperative Neck: Supple Respiratory: Clear to auscultation bilaterally, Normal air movement Cardiovascular: Regular rate/rhythm Gastrointestinal: Other (soft, mild appropriate TTP, ND, wound minimal drainage, lobito in place, rashard in place.) Integumentary: No rashes, No breakdown Neurological: Normal speech Urinary: Pisano catheter Assessment And Plan - Current Problems (Diagnosis) (1) Ventral hernia with bowel obstruction Current Visit: Yes Status: Acute Plan: Patient is a 62-year-old woman status post laparoscopic converted to open ventral hernia repair on 11/20/2022 -General/neuro: Continue current pain management regimen with IV Dilaudid. -CVS: No hemodynamic instability at this time, heart rate remains in same range as preoperative, hemoglobin is tending up @ this time. -Pulm: Continue incentive spirometry every 15 minutes, patient has been noncompliant with this, continue nebulizer treatments and respiratory therapy with respiratory therapist consulted. We will consult Dr. Dodd as patient has history of COPD and he has attended the patient in the past. Appreciate his recommendations. -GI: Patient will likely have a postoperative ileus as there was an extensive dissection required an extensive mobilization of severe scar tissue between: Small bowel in the hernia sac. DC NG tube continue serial exams, wound care to midline leave Lob[place] and drain to allow for drainage. -FEN: Decrease IV fluids to minimize dilutional effect., Continue electrolyte replacement protocol, TPN via PICC line to continue. -Renal: Adequate but low urine output. Urine has a clear consistency to it leave Pisano catheter in place at this time for strict management of fluid balance. DC pisano ID : Continue antibiotic coverage at this point for prophylaxis as the patient had extensive abdominal operation. Prophylaxis: start anticoagulation at this time. As such continue SCDs. Recommend up in chair and ambulation with assist as soon as possible. To minimize risk of DVT. I explained this with the patient in detail the importance of her ambulating with assistance Lines: DC NG tube decompression, DC Pisano catheter at this point, continue PICC line, [place] drain Continue physical therapy to ambulate patient. Endo: Continue Accu-Cheks and insulin replacement protocol.
[2022-11-24] MEDS: AA 4.25 %/D5W/ELECTROLYTES 2,000 ML IV SCH (16:21)
[2022-11-25] MEDS: METRONIDAZOLE 500mg IVPB 500 MG/100 ML BAG IV SCH ×3 (00:05→18:29)
[2022-11-25] MEDS: HYDROMORPHONE HCL 1 MG/ML INJ IV PRN ×3 (03:22→21:06)
[2022-11-25 05:20] LABS: Absolute Lymphocytes (CBC) 1.2 K/uL (0.7-4.9); Hematocrit 25.3 % (36.0-45.0); Lymphocytes % 17.9 % (15.3-44.8); MCV 107.6 fL (80-100); MPV 8.4 fL (7.6-11.3); Platelets 249 thou/uL (152-406); RBC Red Blood Cell Count 2.35 M/uL (3.86-4.86)
[2022-11-25 05:29] LABS: Phosphorus 3.9 mg/dL (2.5-4.9)
[2022-11-25] MEDS: INSULIN -REGULAR HUMAN 50 UNIT/0.5 ML ML SQ SCH ×4 (07:30→21:00)
[2022-11-25] MEDS: SODIUM CHLORIDE 0.9% 10ML INJ IV SCH (09:00)
[2022-11-25] MEDS: DULERA 200/5 (MOMETASONE/FORMOTEROL) INHALER IH SCH ×2 (09:00→21:00)
[2022-11-25] MEDS: CIPROFLOXACIN 400mg IV 400 MG/200 ML BAG IV SCH ×2 (09:14→21:07)
[2022-11-25] MEDS: ENOXAPARIN 40 MG/0.4 ML SQ SCH (09:15)
[2022-11-25] MEDS: Mupirocin NASAL 2 APPL/1 GM TUBE NAS SCH (09:15)
--- NOTE | 2022-11-25 15:37 | P.PN ---
Subjective Date of Service: 11/25/22 Chief Complaint: COPD respiratory failure obstructive sleep apnea Patient denies any new complaint. She denies abdominal pain. NG tube removed. Patient is tolerating liquid diet. Physical Examination - Vital Signs Temperature: 98.0 F Blood Pressure: 123/62 Pulse: 77 Respirations: 17 Pulse Ox (%): 98 Assessment And Plan - Plan Physical Exam: GEN: Alert, oriented, NAD. CV: Regular rate and rhythm, no edema Pulm: Scattered bilateral wheezes, diminished breath sounds bilaterally. ABD: Soft, abdominal Binder in place, dressing in place Neuro: Normal speech, normal affect, no focal motor deficits Sorenson in place vitals reviewed Problem List: High-grade SBO with large umbilical hernia; now s/p ex-lap, repair of ventral incarcerate hernia (11/20) Hypokalemia Atrial fibrillation on chronic anticoagulation Chronic diastolic CHF COPD on home O22.5 L; chronic DARIO Hypertension Hyperlipidemia Hypothyroidism High-grade small bowel obstruction with large umbilical hernia now s/p exploraratory laparoscopy, repair of ventral incarcerated hernia, Laparoscopic Adhesiolysis > 2 hours (11/20) CT abdomen (11/18): High-grade SBO, transition point at distal small bowel, pre sent at the neck of a large umbilical hernia. KUB xray (11/19): Flank distention with moderate central small-bowel dilation General surgery - Dr. Little performed laparoscopy followed by open laparotomy with repair of ventral incarcerated hernia. PPN started 11/18; patient tolerating liquid diet She has been on TPN via PICC line. Continue empiric cipro / flagyl (11/18-) PRN pain medications and antiemetics. Patient is tolerating full liquid diet. Cont PPI abdominal binder Continue PT Monitor H&H. Transfuse as needed for hemoglobin less than 7. Atrial fibrillation on chronic anticoagulation Has not been taking her Eliquis since 11/16/2022. SCDs for now Chronic diastolic CHF Appears compensated at this time Wean off TPN once oral intake improve. COPD on home O22.5 L Continue supplemental oxygen, PRN nebs DARIO CPAP at night. NG tube is out. Hypertension Hyperlipidemia Hypothyroidism Continue home medications. VTE: SCD Code: DNR Dispo: Home upon discharge
--- NOTE | 2022-11-25 18:13 | P.PN ---
Subjective Date of Service: 11/25/22 Chief Complaint: COPD respiratory failure obstructive sleep apnea Patient tolerated clear liquid diet well, no complaints, ambulated in room. Physical Examination - Vital Signs Temperature: 98.0 F Blood Pressure: 127/67 Pulse: 82 Respirations: 17 Pulse Ox (%): 98 - Physical Exam General: Alert, In no apparent distress, Cooperative Neck: Supple Gastrointestinal: Other (soft, mild appropriate TTP, ND, incisions clean and dry, lobito in drain, minimal drainage) Assessment And Plan - Current Problems (Diagnosis) (1) Ventral hernia with bowel obstruction Current Visit: Yes Status: Acute Plan: Patient is a 62-year-old woman status post laparoscopic converted to open ventral hernia repair on 11/20/2022 -General/neuro: Continue current pain management regimen with IV Dilaudid. transition to PO -CVS: No hemodynamic instability at this time, heart rate remains in same range as preoperative, hemoglobin is tending up @ this time. -Pulm: Continue incentive spirometry every 15 minutes, patient has been noncompliant with this, continue nebulizer treatments and respiratory therapy with respiratory therapist consulted. We will consult Dr. Dodd as patient has history of COPD and he has attended the patient in the past. Appreciate his recommendations. -GI: Patient will likely have a postoperative ileus as there was an extensive dissection required an extensive mobilization of severe scar tissue between: Small bowel in the hernia sac. DC NG tube continue serial exams, wound care to midline leave Lobito and drain to allow for drainage. -FEN: Decrease IV fluids to minimize dilutional effect., Continue electrolyte replacement protocol, TPN via PICC line to continue. advance to full liquid diet -Renal: Adequate urine output. DC pisano ID : Continue antibiotic coverage at this point for prophylaxis as the patient had extensive abdominal operation. Prophylaxis: start anticoagulation at this time. As such continue SCDs. Recommend up in chair and ambulation with assist as soon as possible. To minimize risk of DVT. I explained this with the patient in detail the importanc e of her ambulating with assistance Lines: DC NG tube decompression, DC Pisano catheter at this point, continue PICC line, Lob[place] drain Continue physical therapy to ambulate patient. Endo: Continue Accu-Cheks and insulin replacement protocol.
[2022-11-25] MEDS: AA 4.25 %/D5W/ELECTROLYTES 2,000 ML, Lipids 20% 250 ML with MULTIVITAMINS INJ 10 ML IV SCH ×3 (18:29)
[2022-11-26] MEDS: METRONIDAZOLE 500mg IVPB 500 MG/100 ML BAG IV SCH ×2 (00:27→09:50)
[2022-11-26] MEDS: HYDROMORPHONE HCL 1 MG/ML INJ IV PRN ×3 (02:24→20:56)
[2022-11-26 05:29] LABS: Absolute Lymphocytes (CBC) 1.1 K/uL (0.7-4.9); Hematocrit 26.8 % (36.0-45.0); Lymphocytes % 15.1 % (15.3-44.8); MCV 107.4 fL (80-100); MPV 8.7 fL (7.6-11.3); Platelets 270 thou/uL (152-406); RBC Red Blood Cell Count 2.49 M/uL (3.86-4.86)
[2022-11-26 05:50] LABS: Albumin 2.4 g/dL (3.4-5.0); Bilirubin Total 0.6 mg/dL (0.2-1.0); Magnesium 1.9 mg/dL (1.6-2.4); Phosphorus 3.3 mg/dL (2.5-4.9); Potassium 3.8 mEq/L (3.5-5.1); Protein, Total 5.6 g/dL (6.4-8.2)
[2022-11-26] MEDS: INSULIN -REGULAR HUMAN 50 UNIT/0.5 ML ML SQ SCH ×4 (07:30→21:00)
[2022-11-26 08:45] LABS: Anisocytosis 1+; Blood Morphology Comment NOTED (NOT SEEN); Macrocytosis 1+; Platelet Estimate ADEQ; White Blood Cell Scan OK (OK)
[2022-11-26] MEDS: DULERA 200/5 (MOMETASONE/FORMOTEROL) INHALER IH SCH ×2 (09:00→20:57)
[2022-11-26] MEDS ORDERED: POTASSIUM CL SA 10 MEQ TAB PO ONE (09:00)
[2022-11-26] MEDS: SODIUM CHLORIDE 0.9% 10ML INJ IV SCH (09:00)
[2022-11-26] MEDS: CIPROFLOXACIN 400mg IV 400 MG/200 ML BAG IV SCH (09:50)
[2022-11-26] MEDS: PANTOPRAZOLE 40 MG INJ IVP SCH (09:51)
[2022-11-26] MEDS: ENOXAPARIN 40 MG/0.4 ML SQ SCH (09:51)
[2022-11-26] MEDS: ONDANSETRON 4 MG/2 ML VIAL IV PRN (09:53)
--- NOTE | 2022-11-26 14:12 | P.PN ---
Subjective Date of Service: 11/26/22 Chief Complaint: COPD respiratory failure obstructive sleep apnea Patient reporting heartburn. She states that she had a bowel movement. She is tolerating solid diet. Physical Examination - Vital Signs Temperature: 97.3 F Blood Pressure: 129/70 Pulse: 95 Respirations: 20 Pulse Ox (%): 98 Assessment And Plan - Plan Physical Exam: GEN: Alert, oriented, NAD. CV: Regular rate and rhythm, no edema Pulm: Scattered bilateral wheezes, diminished breath sounds bilaterally. ABD: Soft, abdominal Binder in place, dressing in place Neuro: Normal speech, normal affect, no focal motor deficits Sorenson in place vitals reviewed Problem List: High-grade SBO with large umbilical hernia; now s/p ex-lap, repair of ventral incarcerate hernia (11/20) Hypokalemia Atrial fibrillation on chronic anticoagulation Chronic diastolic CHF COPD on home O22.5 L; chronic DARIO Hypertension Hyperlipidemia Hypothyroidism High-grade small bowel obstruction with large umbilical hernia now s/p exploraratory laparoscopy, repair of ventral incarcerated hernia, Laparoscopic Adhesiolysis > 2 hours (11/20) CT abdomen (11/18): High-grade SBO, transition point at distal small bowel, present at the neck of a large umbilical hernia. KUB xray (11/19): Flank distention with moderate central small-bowel dilation General surgery - Dr. Little performed laparoscopy followed by open laparotomy with repair of ventral incarcerated hernia. PPN started 11/18; patient tolerating liquid diet She has been on TPN via PICC line. Continue empiric cipro / flagyl (11/18-) PRN pain medications and antiemetics. Patient is tolerating solid diet. Discontinue TPN abdominal binder Continue PT Monitor H&H. Transfuse as needed for hemoglobin less than 7. Atrial fibrillation on chronic anticoagulation Has not been taking her Eliquis since 11/16/2022. SCDs for now Chronic diastolic CHF Appears compensated at this time Discontinue TPN. COPD on home O22.5 L Continue supplemental oxygen, PRN nebs DARIO CPAP at night. Hypertension Hyperlipidemia Hypothyroidism Continue home medications. VTE: SCD Code: DNR Dispo: Home upon discharge
[2022-11-26] MEDS: SUCRALFATE 1GM/10ML UCUP PO SCH ×2 (15:51→20:53)
[2022-11-26] MEDS: HYDROCODONE/APAP 5/325 MG TAB PO PRN (15:51)
[2022-11-26] MEDS ORDERED: AA 4.25 %/D5W/ELECTROLYTES 2,000 ML IV SCH (17:00)
--- NOTE | 2022-11-26 17:55 | P.PN ---
Subjective Date of Service: 11/26/22 Chief Complaint: COPD respiratory failure obstructive sleep apnea Patient tolerated diet well, no complaints, ambulated in room. + BM Physical Examination - Vital Signs Temperature: 97.3 F Blood Pressure: 129/70 Pulse: 95 Respirations: 20 Pulse Ox (%): 98 - Physical Exam General: Alert, In no apparent distress, Cooperative Respiratory: Clear to auscultation bilaterally, Normal air movement Cardiovascular: Regular rate/rhythm Gastrointestinal: Other (soft, mild appropriate TTP, ND, improved, lobito and dressings in place.) Assessment And Plan - Current Problems (Diagnosis) (1) Ventral hernia with bowel obstruction Current Visit: Yes Status: Acute Plan: Patient is a 62-year-old woman status post laparoscopic converted to open ventral hernia repair on 11/20/2022 -General/neuro: DC IV Dilaudid. transition to PO -CVS: No hemodynamic instability at this time, heart rate remains in same range as preoperative, hemoglobin is tending up @ this time. -Pulm: Continue incentive spirometry every 15 minutes, patient has been noncompliant with this, continue nebulizer treatments and respiratory therapy with respiratory therapist consulted. We will consult Dr. Dodd as patient has history of COPD and he has attended the patient in the past. Appreciate his recommendations. -GI: Patient will likely have a postoperative ileus as there was an extensive dissection required an extensive mobilization of severe scar tissue between: Small bowel in the hernia sac. DC NG tube continue serial exams, wound care to midline leave [place] and drain to allow for drainage. -FEN: Decrease IV fluids to minimize dilutional effect., Continue electrolyte replacement protocol, DC TPN -Renal: Adequate urine output. DC pisano ID : Continue antibiotic coverage at this point for prophylaxis as the patient had extensive abdominal operation. Prophylaxis: start anticoagulation at this time. As such continue SCDs. Recommend up in chair and ambulation with assist as soon as possible. To minimize risk of DVT. I explained this with the patient in detail the importance of her ambulating with assistance Continue physical therapy to ambulate patient. Endo: Continue Accu-Cheks and insulin replacement protocol. - ok to DC from surgical stantpoint, tolerating diet, normal bowel movement, no other issues
[2022-11-27] MEDS: HYDROCODONE/APAP 5/325 MG TAB PO PRN (02:52)
[2022-11-27 05:13] LABS: Absolute Lymphocytes (CBC) 1.2 K/uL (0.7-4.9); Hematocrit 26.5 % (36.0-45.0); Lymphocytes % 17.8 % (15.3-44.8); MPV 8.5 fL (7.6-11.3); Platelets 244 thou/uL (152-406); RBC Red Blood Cell Count 2.46 M/uL (3.86-4.86)
[2022-11-27 05:18] LABS: MCV 107.6 fL (80-100)
[2022-11-27 05:24] LABS: Magnesium 1.7 mg/dL (1.6-2.4); Phosphorus 3.1 mg/dL (2.5-4.9); Potassium 3.9 mEq/L (3.5-5.1)
[2022-11-27] MEDS: INSULIN -REGULAR HUMAN 50 UNIT/0.5 ML ML SQ SCH ×2 (07:30→11:30)
[2022-11-27] MEDS: SUCRALFATE 1GM/10ML UCUP PO SCH ×2 (07:30→11:30)
[2022-11-27 08:29] VITALS: O2SAT 100
[2022-11-27] MEDS: DULERA 200/5 (MOMETASONE/FORMOTEROL) INHALER IH SCH (08:31)
[2022-11-27] MEDS: PANTOPRAZOLE 40 MG INJ IVP SCH (08:31)
[2022-11-27] MEDS: ENOXAPARIN 40 MG/0.4 ML SQ SCH (08:31)
[2022-11-27] MEDS: SODIUM CHLORIDE 0.9% 10ML INJ IV SCH (08:32)
[2022-11-27] MEDS ORDERED: MAGNESIUM SULFATE 1 gm IVPB 1 GM/100 ML BAG IV ONE (09:00)
[2022-11-27] MEDS ORDERED: POTASSIUM CL SA 10 MEQ TAB PO ONE (09:00)
--- NOTE | 2022-11-27 09:38 | P.DS ---
Admission Date: 11/17/22 Discharge Date: 11/27/22 Disposition: ROUTINE DISCHARGE Discharge Condition: FAIR Reason for Admission: COPD respiratory failure obstructive sleep apnea Vital Signs/Physical Exam: Temp Pulse Resp BP Pulse Ox 98.1 F 60 18 165/70 H 99 11/27/22 04:00 11/27/22 04:00 11/27/22 04:00 11/27/22 04:00 11/27/22 04:00 Laboratory Data at Discharge: WBC 7.00 thou/uL (4.3-10.9) 11/27/22 04:47 Hgb 9.2 g/dL (12.0-15.0) L 11/27/22 04:47 Hct 26.5 % (36.0-45.0) L 11/27/22 04:47 Plt Count 244 thou/uL (152-406) 11/27/22 04:47 Sodium 134 mEq/L (136-145) L 11/27/22 04:47 Potassium 3.9 mEq/L (3.5-5.1) 11/27/22 04:47 BUN 6 mg/dL (7-18) L 11/27/22 04:47 Creatinine 0.34 mg/dL (0.55-1.02) L 11/27/22 04:47 Glucose 129 mg/dL (74-106) H 11/27/22 04:47 Phosphorus 3.1 mg/dL (2.5-4.9) 11/27/22 04:47 Magnesium 1.7 mg/dL (1.6-2.4) 11/27/22 04:47 Total Bilirubin 0.6 mg/dL (0.2-1.0) 11/26/22 05:00 AST 22 U/L (15-37) 11/26/22 05:00 ALT 18 U/L (13-56) 11/26/22 05:00 Alkaline Phosphatase 45 U/L (45-117) 11/26/22 05:00 Lipase 127 U/L (13-75) H 11/17/22 19:16 Home Medications: Acetaminophen [Tylenol Extra Strength] 500 mg PO PRN 10/10/21 Furosemide 20 mg PO TID 10/10/21 Atorvastatin Calcium [Lipitor] 40 mg PO BEDTIME #30 tab 10/13/21 Sotalol HCl [Betapace*] 80 mg PO BID 6AM 6PM #60 tab 10/13/21 Spironolactone [Aldactone*] 25 mg PO BID #60 tab 10/13/21 Apixaban [Eliquis] 5 mg PO BID #60 tab 04/19/22 Benzonatate [Tessalon Perle*] 100 mg PO TID PRN #30 cap 04/19/22 Albuterol Neb [Proventil 0.083% Neb Soln] 2.5 mg NEB Q8HR 11/17/22 Amlodipine Besylate [Norvasc] 10 mg PO BID 11/17/22 Budesonide/Glycopyr/Formoterol [Breztri Aerosphere Inhaler] 2 inhaler IH BID 11/17/22 Ipratropium Neb [Atrovent*] 0.5 mg NEB Q8HR 11/17/22 Potassium Chloride 20 meq PO TID 11/17/22 Ipratropium Neb [Atrovent*] 0.5 mg NEB [id number] PRN #120 amp 11/27/22 Pantoprazole [Protonix Tab] 40 mg PO DAILY #30 tab 11/27/22 Sucralfate [Carafate*] 10 ml PO ACHS #30 ea 11/27/22 New Medications: Ipratropium Neb [Atrovent*] 0.5 mg NEB [id number] PRN #120 amp PRN Reason: Wheezing Sucralfate [Carafate*] 10 ml PO ACHS #30 ea Pantoprazole [Protonix Tab] 40 mg PO DAILY #30 tab Diet: AHA Activity: Fall precautions Followup: Karsten Little MD [ACTIVE - CAN ADMIT] - 1 Week LISA GONZALEZ [Primary Care Provider] - 1-2 Weeks
[2022-11-27] MEDS: HYDROMORPHONE HCL 1 MG/ML INJ IV PRN (12:50)
[2022-11-27 14:03] VITALS: BP 111/52; TEMP 98.5
--- NOTE | 2022-11-27 16:54 | P.DS ---
Admission Date: 11/17/22 Discharge Date: 11/27/22 Disposition: ROUTINE DISCHARGE Discharge Condition: FAIR Reason for Admission: COPD respiratory failure obstructive sleep apnea Brief History of Present Illness: 62-year-old female with history of atrial fibrillation on chronic anticoagulation, chronic diastolic congestive heart failure, COPD, hypertension, hyperlipidemia, hypothyroidism, DARIO, on home O2 2.5 Liters/CPAP at home presents to the emergency department chief complaint of vomiting, abdominal pain. She reports that her pain began on 11/10/2022 worsened on 11/12/2022 as she has been vomiting since 11/12/2022, has not had a bowel movement for 3 to 4 days, also not passing gas per patient. She was evaluated in the emergency department her labs were significant for sodium 130 potassium 2.9 chloride 77 bicarb [address] abdomen pelvis with IV contrast showed high-grade small bowel obstruction with transition point along the distal small bowel, present at the neck of a large umbilical hernia. Mild wall thickening of the nondistended small bowel within the hernia sac, with edema within bleeding mesenteric suggesting segmental enteritis. ED physician discussed case with general surgeon. Patient was admitted for high-grade small bowel obstruction. Hospital Course: Diagnosis High-grade SBO with large umbilical hernia; now s/p ex-lap, repair of ventral incarcerate hernia (11/20) Hypokalemia Atrial fibrillation on chronic anticoagulation Chronic diastolic CHF COPD on home O22.5 L; chronic DARIO Hypertension Hyperlipidemia Hypothyroidism High-grade small bowel obstruction with large umbilical hernia now s/p exploraratory laparoscopy, repair of ventral incarcerated hernia, Laparoscopic Adhesiolysis > 2 hours (11/20) CT abdomen (11/18): High-grade SBO, transition point at distal small bowel, present at the neck of a large umbilical hernia. KUB xray (11/19): Flank distention with moderate central small-bowel dilation General surgery - Dr. Little performed laparoscopy followed by open laparotomy with repair of ventral incarcerated hernia. Patient placed on TPN for prolonged n.p.o. status; there was return of bowel function, patient tolerating liquid diet She was treated with empiric IV cipro / flagyl PRN pain medications and antiemetics. Patient later tolerated solid diet. PT consulted but patient did not participate much in PT. She has poor functional status at baseline and only transfers. Atrial fibrillation on chronic anticoagulation Eliquis was held during the hospital stay and resumed on discharge. Chronic diastolic CHF Patient was compensated for CHF. COPD on home O22.5 L PAtient was on supplemental oxygen, PRN nebs DARIO CPAP at night. Hypertension Hyperlipidemia Hypothyroidism Continued home medications. Vital Signs/Physical Exam: Temp Pulse Resp BP Pulse Ox 98.5 F 95 H 16 111/52 L 98 11/27/22 12:00 11/27/22 12:00 11/27/22 12:00 11/27/22 12:00 11/27/22 12:00 General: Alert, In no apparent distress, Oriented x3 HEENT: Mucous membr. moist/pink Neck: Supple, JVD not distended Respiratory: Clear to auscultation bilaterally, Diminished Cardiovascular: Regular rate/rhythm, Normal S1 S2 Gastrointestinal: Soft and benign, Non-distended, Other (Midline surgical wound with clean dressing.) Musculoskeletal: Swelling (Bilateral lower extremities) Lymphatics: Other (Bilateral lower extremity lymphedema.) Laboratory Data at Discharge: WBC 7.00 thou/uL (4.3-10.9) 11/27/22 04:47 Hgb 9.2 g/dL (12.0-15.0) L 11/27/22 04:47 Hct 26.5 % (36.0-45.0) L 11/27/22 04:47 Plt Count 244 thou/uL (152-406) 11/27/22 04:47 Sodium 134 mEq/L (136-145) L 11/27/22 04:47 Potassium 3.9 mEq/L (3.5-5.1) 11/27/22 04:47 BUN 6 mg/dL (7-18) L 11/27/22 04:47 Creatinine 0.34 mg/dL (0.55-1.02) L 11/27/22 04:47 Glucose 129 mg/dL (74-106) H 11/27/22 04:47 Phosphorus 3.1 mg/dL (2.5-4.9) 11/27/22 04:47 Magnesium 1.7 mg/dL (1.6-2.4) 11/27/22 04:47 Total Bilirubin 0.6 mg/dL (0.2-1.0) 11/26/22 05:00 AST 22 U/L (15-37) 11/26/22 05:00 ALT 18 U/L (13-56) 11/26/22 05:00 Alkaline Phosphatase 45 U/L (45-117) 11/26/22 05:00 Lipase 127 U/L (13-75) H 11/17/22 19:16 Home Medications: Acetaminophen [Tylenol Extra Strength] 500 mg PO PRN 10/10/21 Furosemide 20 mg PO TID 10/10/21 Atorvastatin Calcium [Lipitor] 40 mg PO BEDTIME #30 tab 10/13/21 Sotalol HCl [Betapace*] 80 mg PO BID 6AM 6PM #60 tab 10/13/21 Spironolactone [Aldactone*] 25 mg PO BID #60 tab 10/13/21 Apixaban [Eliquis] 5 mg PO BID #60 tab 04/19/22 Benzonatate [Tessalon Perle*] 100 mg PO TID PRN #30 cap 04/19/22 Albuterol Neb [Proventil 0.083% Neb Soln] 2.5 mg NEB Q8HR 11/17/22 Amlodipine Besylate [Norvasc] 10 mg PO BID 11/17/22 Budesonide/Glycopyr/Formoterol [Breztri Aerosphere Inhaler] 2 inhaler IH BID 11/17/22 Ipratropium Neb [Atrovent*] 0.5 mg NEB Q8HR 11/17/22 Potassium Chloride 20 meq PO TID 11/17/22 Ipratropium Neb [Atrovent*] 0.5 mg NEB [id number] PRN #120 amp 11/27/22 Pantoprazole [Protonix Tab] 40 mg PO DAILY #30 tab 11/27/22 Sucralfate [Carafate*] 10 ml PO ACHS #30 ea 11/27/22 New Medications: Ipratropium Neb [Atrovent*] 0.5 mg NEB [id number] PRN #120 amp PRN Reason: Wheezing Sucralfate [Carafate*] 10 ml PO ACHS #30 ea Pantoprazole [Protonix Tab] 40 mg PO DAILY #30 tab Physician Discharge Instructions: Wound dressings daily- sent home with supplies and relayed to home health Diet: AHA Activity: Fall precautions Followup: Karsten Little MD [ACTIVE - CAN ADMIT] - 1 Week OOT,OOT [Primary Care Provider] - 1-2 Weeks Time spent managing pt's care (in minutes): 38
== END 2022-11-27 13:38 | disposition home or self-care (01) | DRG 335 ==
LOC: ER 18:50 → ERHOLD 22:15 → 2ND 11-18 13:47 → 3RD-ICU 11-20 17:18 → 2ND 11-23 16:25
PROVIDERS: ADMIT Hospitalist; ATTEND Internal Medicine
PROC: 5A09557 Assistance with Respiratory Ventilation, Greater than 96 Consecutive Hours, Continuous Positive Airway Pressure (ICD-10-PCS; 2022-11-18)
PROC: 0DNU0ZZ Release Omentum, Open Approach (ICD-10-PCS; 2022-11-20)
PROC: 0DNE0ZZ Release Large Intestine, Open Approach (ICD-10-PCS; 2022-11-20)
PROC: 0WQF0ZZ Repair Abdominal Wall, Open Approach (ICD-10-PCS; 2022-11-20)
PROC: 0WJF4ZZ Inspection of Abdominal Wall, Percutaneous Endoscopic Approach (ICD-10-PCS; 2022-11-20)
PROC: 0DBU0ZZ Excision of Omentum, Open Approach (ICD-10-PCS; 2022-11-20)
PROC: 0DN80ZZ Release Small Intestine, Open Approach (ICD-10-PCS; principal; 2022-11-20 14:45)
PROC: 02HV33Z Insertion of Infusion Device into Superior Vena Cava, Percutaneous Approach (ICD-10-PCS; 2022-11-21)
PROC: 3E0436Z Introduction of Nutritional Substance into Central Vein, Percutaneous Approach (ICD-10-PCS; 2022-11-21)
DX: K43.6 Other and unspecified ventral hernia with obstruction, without gangrene (principal); J96.00 Acute respiratory failure, unspecified whether with hypoxia or hypercapnia; I50.32 Chronic diastolic (congestive) heart failure; Z68.43 Body mass index [BMI] 50.0-59.9, adult; E66.01 Morbid (severe) obesity due to excess calories; I48.91 Unspecified atrial fibrillation; E87.6 Hypokalemia; E86.0 Dehydration; E78.5 Hyperlipidemia, unspecified; G47.33 Obstructive sleep apnea (adult) (pediatric); E03.9 Hypothyroidism, unspecified; K52.9 Noninfective gastroenteritis and colitis, unspecified; J44.9 Chronic obstructive pulmonary disease, unspecified; Z66 Do not resuscitate; Z56.0 Unemployment, unspecified; Z53.31 Laparoscopic surgical procedure converted to open procedure; Z79.52 Long term (current) use of systemic steroids; Z79.01 Long term (current) use of anticoagulants; Z99.81 Dependence on supplemental oxygen; Z79.899 Other long term (current) drug therapy; Z20.822 Contact with and (suspected) exposure to COVID-19
CPT/HCPCS: 36415; 36569; 36600; 71045; 74018; 74177; 80048; 80053; 81001; 82805; 82947; 83605; 83690; 83735; 83880; 84100; 84132; 84134; 85014; 85018; 85025; 86850; 86900; 86901; 87811; 88302; 93005; 94010; 94640; 94660; 96365; 96366; 96375; 97110; 97161; 99285; A4216; C9113; J0744; J1100; J1170; J1650; J1815; J2001; J2250; J2310; J2405; J2704; J2710; J2765; J3010; J3475; J3480; J3535; J7050; J7120; J7613; J7644; Q9967

== ENCOUNTER 2023-01-31 00:11 | Emergency (ER) | payer BC ==
--- OUTSIDE RECORDS SUMMARY | 2023-01-31 00:14 | XMS REPORT | Continuity of Care Document ---
:1960 Author Organization [facility] [place] [facility] t Address [address] [facility] [address] [place] [id number] Care Team Providers Name Role Phone Praclovissh_S Attending Clinician Unavailable Prakash_S Admitting Clinician Unavailable Payers Payer Name Policy Type Policy Number Effective Date Expiration Date Gogo FREGOSO [id number] Problems This patient has no known problems. Allergies, Adverse Reactions, Alerts Allergy Allergy Status Severity Reaction(s) Onset Inactive Treating Comm ents Source Name Type Date Date Clinician No Known DA Active U 2018-0 [facility] 07[facility]14 [place] [facility] No Known DA Active U 2018-0 [facility] 07[facility]01 [facility] [place] Medications This patient has no known medications. Procedures This patient has no known procedures. Encounters Start End Encounter Admission Attending Care Care Encounter Source Date/Time Date/Time Type Type Clinicians Facility Department ID 2023-01-27 2023-01-27 Outpatient [facility] [id number] Darwin 15:22:59 15:22:59 [id number] F Matthew 2023-01-21 2023-01-21 Outpatient [facility] [id number] [place] 09:42:18 09:42:18 [id number] F Matthew 2022-09-03 2022-09-03 Outpatient Prakash_S VFP VFP [id number] 90-20 [facility] 00:00:00 00:00:00 [id number] Family Practic e Results Test Description Test [...] of measure: mL/min/1.73 (test code = GFR) [id number] Range:Healthy Adults >90 mL/m in/1.73 m2 For Chronic Kidney Disease: Stage II Mild Decreas e in GFR 60-90 Stage III Moder ate Decrease in GFR 30-59 St age IV Severe Decrease in GFR 15-29 Stage V Kidney Failure <15 CREATININE (test code = CREAT) 0.85 mg/dL 0.55-1.30 N CALCIUM (test code = CA) 8.8 mg/dL 8.2-10.1 N - XR PELVIS 1/2 [id number] 07:17:00 Patient Name: LORAINE CHUN Unit No: [id number] EXAMS: CPT CODE: [id number] XR PELVIS 1/2 VIEWS 35387 INTRAOPERATIVE LEG LENGTH FILM COMMENT: COMPARISON: No prior exams available. In progress right hip replacement is noted. AP PORTABLE RIGHT HIP COMMENT: The patient is status post joint replacement which is articulating normally. at 0717 Reported and signed by: Kelby Fierro MD CC: Gordon Benitez Technologist: ARABELLA PARK RT(R) Transcribed D/ (0717) tEMILIE [facility] NAME: LORAINE [id number] [facility] PHYS: Gordon Hayes : 1960 AGE: 57 SEX: F [place], [place] [address] LOC: Y.322 A PHONE #: [phone] EXAM DATE: 07/14/2018 STATUS: ADM IN FAX#: [phone] RAD #: D/C DT PAGE 1 Signed Report Patient Name: LORAINE CHUN Unit No: [id number] EXAMS: CPT CODE: [id number] XR PELVIS 1/2 VIEWS 17169 (Continued) Orig Print D/T: S: 07/15/2018 (1027) [facility] NAME: LORAINE CHUN [facility] PHYS: Gordon Hayes : 1960 AGE: 57 SEX: F [place] [address] LOC: Y.322 A PHONE #: [phone] EXAM DATE: 07/14/2018 STATUS: ADM IN FAX #: [phone] RAD #: D/C DT PAGE 2 Signed Report- XR PELVIS 1/2 [id number] 07:17:00 Patient Name: LORAINE CHUN Unit No: [id number] EXAMS: CPT CODE: [id number] XR PELVIS 1/2 VIEWS 71804 INTRAOPERATIVE LEG LENGTH FILM COMMENT: COMPARISON: No prior exams available. In progress right hip replacement is noted. AP PORTABLE RIGHT HIP COMMENT: The patient is status post joint replacement which is articulating normally. at 0717 Reported and signed by: Kelby Fierro MD CC: Gordon Benitez Technologist: ARABELLA PARK RT(R) Transcribed D/ (0717) t.DOT [facility] NAME: LORAINE CHUN [facility] PHYS: Gordon Hayes : 1960 AGE: 57 SEX: F [place] [address] LOC: Y.322 A PHONE #: [phone] EXAM DATE: 07/14/2018 STATUS: ADM IN FAX #: [phone] RAD #: D/C DT PAGE 1 Signed Report Patient Name: LORAINE CHUN Unit No: [id number] EXAMS: CPT CODE: [id number] XR PELVIS 1/2 VIEWS 27089 (Continued) Orig Print D/T: S: 07/15/2018 (1027)[facility] NAME: LORAINE CHUN [facility] PHYS: Gordon Hayes : 1960 AGE: 57 SEX: F [place], [place] [address] LOC: Y.322 A PHONE #: [phone] EXAM DATE: 07/14/2018 STATUS: ADM IN FAX #: [phone] RAD #: D/C DT PAGE 2 Signed ReportHGB HCT 2018-07-15 05:53:00 Test Item Value Reference Range Interpretation Comments HEMOGLOBIN (test code = HGB) 13.3 g/dL 12-16 N HEMATOCRIT (test code = HCT) 39.8 % 37-47 N AB HIV 20:55:00 Test Item Value Reference Range Interpretation Comments AB HIV 1 (test code NONREACTIVE NONREACTIVE DONE AT: [facility] = HIV1AB) [facility] [address] [place], [place] [address]Done by [facility] 4th Gen HIV Ag/Ab C ombo Screen AB HIV 1 20:55:00 Test Item Value Reference Range Interpretation Comments AB HIV 1 2 (test NONREACTIVE NONREACTIVE Done by [facility] code = FSC34AZ) 4th Gen HIV Ag/Ab Combo Screen COMPREHENSIVE METABOLIC [id number] 18:08:00 Test Item Value Reference Range Interpretation [...] RATE (test code = GFR) mL/mi n/1.73 [id number] Range:Healthy Adults >90 mL/min/1.73 m2 For Chronic [...] N TOTAL (test code = ALKP) PROTHROMBIN [id number] 17:53:00 Test Item Value Reference Range Interpretation [...] Patient is on Heparin Drip? NOTHROMBOPLASTIN TIME [id number] 17:53:00 Test Item Value Reference Range Interpretation Comments PTT ACTIVATED (test code = APTT) 31.2 secs 24.9-37.0 N IS PATIENT ON ANTICOAGULANTS ? YLIST ANTICOAGULANT/ANTI PLT MEDICATION : AspirinHas Lab been notified if Patient is on Heparin Drip? NOURINALYSIS [id number] 17:40:00 Test Item Value Reference Range Interpretation [...] NONE A code = BACU) CBC W/AUTO [id number] 17:30:00 Test Item Value Reference Range Interpretation [...]
[2023-01-31] MEDS ORDERED: FUROSEMIDE 40 MG/4 ML VIAL ONE (01:15)
[2023-01-31 01:19] LABS: Absolute Lymphocytes (CBC) 1.3 K/uL (0.7-4.9); Hematocrit 35.8 % (36.0-45.0); Lymphocytes % 23.8 % (15.3-44.8); MCV 110.5 fL (80-100); MPV 7.5 fL (7.6-11.3); Platelets 238 thou/uL (152-406); RBC Red Blood Cell Count 3.24 M/uL (3.86-4.86)
[2023-01-31 01:43] LABS: Albumin 3.5 g/dL (3.4-5.0); Bilirubin Direct 0.2 mg/dL (0-0.2); Bilirubin Indirect, Calculated 0.3 mg/dL (0.2-0.8); Bilirubin Total 0.5 mg/dL (0.2-1.0); Magnesium 1.9 mg/dL (1.6-2.4); Potassium 3.6 mEq/L (3.5-5.1); Protein, Total 6.8 g/dL (6.4-8.2); Troponin High Sensitivity 16.7 pg/mL (<58.9)
[2023-01-31 02:15] LABS: Anisocytosis 1+; Blood Morphology Comment NOTED (NOT SEEN); Macrocytosis 2+; Platelet Estimate ADEQ; White Blood Cell Scan OK (OK)
--- NOTE | 2023-01-31 02:54 | ER ---
Nurse's Notes [facility] Name: Carla Harris Age: 62 yrs Sex: Female : 1960 Arrival Date: 01/31/2023 Time: 00:11 Bed 4 Private MD: Diagnosis: CHF exacerbation;Hypoxia Presentation: 01/31 00:42 Chief complaint: Patient states: SOB X4 days. stopped taking Lasix due to bilateral leg lg3 weeping and NKECHI LE wounds. complaints of pain bilateral lower extremities, left ankle, right hip. Coronavirus screen: Client denies travel out of the [place] in the last 14 days. At this time, the client does not indicate any symptoms associated with coronavirus-19. Ebola Screen: No symptoms or risks identified at this time. Initial Sepsis Screen: Does the patient meet any 2 criteria? No. Patient's initial sepsis screen is negative. Does the patient have a suspected source of infection? No. Patient's initial sepsis screen is negative. Risk Assessment: Do you want to hurt yourself or someone else? Patient reports no desire to harm self or others. Onset of symptoms is unknown. 00:42 Method Of Arrival: EMS: [facility] lg3 00:42 Acuity: DANK 3 lg3 Triage Assessment: 00:47 General: Appears in no apparent distress. uncomfortable, Behavior is cooperative, lg3 anxious. Pain: Complains of pain in right hip, right leg, left leg and left foot. EENT: No deficits noted. No signs and/or symptoms were reported regarding the EENT system. Neuro: No deficits noted. Grace Agitation-Sedation Scale (RASS): 0 - Alert and Calm Level of Consciousness is awake, alert, obeys commands, Oriented to person, place, time, situation. Cardiovascular: No deficits noted. Denies chest pain, Capillary refill < 3 seconds Clubbing of nail beds is absent JVD is absent Patient's skin is warm and dry. Respiratory: Reports shortness of breath labored breathing Airway is patent Respiratory effort is even, pursed lip, Respiratory pattern is regular, symmetrical, Onset: The symptoms/episode began/occurred 4 days ago, the patient has moderate shortness of breath. GI: No deficits noted. No signs and/or symptoms were reported involving the gastrointestinal system. Abdomen is round non-distended, obese. : No deficits noted. No signs and/or symptoms were reported regarding the genitourinary system. Derm: Skin is intact, Skin is dry, Skin is normal, Skin temperature is warm Wound noted right corea. Musculoskeletal: Circulation, motion, and sensation intact. Range of motion: intact in all extremities, Swelling present in right leg and left leg. Historical: - Allergies: 00:47 No Known Allergies; lg3 - PMHx: 00:47 Atrial fibrillation; CHF; COPD; Home O2 via 2.5L NC; lymphedema; "pre diabetes" (R hip);lg3 - PSHx: 00:47 Ankle; section; hip; L ankle; R hip; lg3 - Immunization history:: Adult Immunizations unknown, Client reports having NOT received the Covid vaccine. Flu vaccine is not up to date. - Social history:: Smoking status: Patient denies any tobacco usage or history of. Patient uses alcohol, admits to "couple of beers" a day. - Family history:: not pertinent. Screenin:51 [facility] ED Fall Risk Assessment (Adult) History of falling in the last 3 months, lg3 including since admission No falls in past 3 months (0 pts). Abuse screen: Denies threats or abuse. Denies injuries from another. Nutritional screening: No deficits noted. Tuberculosis screening: No symptoms or risk factors identified. Assessment: 00:51 General: see triage assessment. Cardiovascular: Rhythm is sinus tachycardia. lg3 Respiratory: Airway is patent Respiratory effort is even, pursed lip, Respiratory pattern is regular, symmetrical, Breath sounds with crackles bilaterally. 01:25 Reassessment: Patient appears in no apparent distress at this time. No changes from lg3 previously documented assessment. Patient and/or family updated on plan of care and expected duration. Pain level reassessed. Patient is alert, oriented x 3, equal unlabored respirations, skin warm/dry/pink. Vital Signs: 00:42 BP 156 / 71; Pulse 111; Resp 19 S; Temp 98.3(O); Pulse Ox 97% on 4 lpm NC; Weight lg3 143.34 kg (M); Height 5 ft. 1 in. ; 01:26 BP 165 / 73; Pulse 116; Resp 17 S; Pulse Ox 97% on 4 lpm NC; lg3 02:59 BP 145 / 71; Pulse 101; Resp 18 S; Pulse Ox 97% on 4 lpm NC; lg3 00:42 Body Mass Index 59.71 (143.34 kg, 154.94 cm) lg3 ED Course: 00:13 Patient arrived in ED. kb3 00:30 Papa Benavidez MD is Attending Physician. rt 00:42 Alexus Farfan, RN is Primary Nurse. lg3 00:47 Triage completed. lg3 00:47 Arm band placed on right wrist. lg3 00:51 Patient has correct armband on for positive identification. Placed in gown. Bed in low lg3 position. Call light in reach. Side rails up X 1. Client placed on continuous cardiac and pulse oximetry monitoring. NIBP monitoring applied. range aide on. Door closed. Noise minimized. Warm blanket given. 00:51 Oxygen administration via nasal cannula \\T\\ 4L/min. lg3 00:58 Maintain EMS IV. Dressing intact. Good blood return noted. Site clean \\T\\ dry. Gauge \\T\\ lg 3 site: 20 LAC. 01:14 XRAY Chest (1 view) In Process Unspecified. EDMS 04:40 No provider procedures requiring assistance completed. Patient transferred, IV remains km8 in place. 04:41 Provided Education on: transfer process. km8 Administered Medications: 01:12 Drug: Furosemide IVP 40 mg IVP once; give over 2 minutes Route: IVP; Site: left lg3 antecubital; 03:08 Follow up: Response: No adverse reaction; Marked relief of symptoms lg3 Medication: 04:40 VIS not applicable for this client. km8 Outcome: 02:54 ER care complete, transfer ordered by . rt 04:41 Transferred by ground EMS km8 04:41 Condition: stable 04:41 Discharge instructions given to patient, Instructed on the need for transfer, Demonstrated understanding of instructions, 04:42 Patient left the ED. km8 Signatures: Dispatcher [employer] EDMS Alexus Farfan, RN SALUD lg3 Veronica Walker RN RN kb3 Papa Benavidez MD MD rt Tanika Gonzalez RN RN km8
--- NOTE | 2023-01-31 02:55 | EDPHYS ---
Physician Documentation [facility] Name: Carla Harris Age: 62 yrs Sex: Female : 1960 Arrival Date: 01/31/2023 Time: 00:11 Bed 4 Private MD: ED Physician Papa Benavidez HPI: 01/31 00:54 This 62 yrs old Female presents to ER via EMS with complaints of Shortness Of Breath. rt 00:54 Patient presents to the ED with edema, shortness of breath. Patient stopped her Lasix rt several days ago due to a cut on her right leg. States that bleeding has stopped, however now, she has had weeping of clear fluid from her legs since stopping the Lasix. She states that she is short of breath when she lies down flat when she walks around. Patient states that her oxygen saturation dipped to 81% on her baseline oxygen, prompting her to call EMS for further treatment. Her oxygen was up, shortness of breath is improving but still present. Denies chest pain. Denies other acute complaints at this time, symptoms are moderate severity, no other aggravating or alleviating factors.. Historical: - Allergies: 00:47 No Known Allergies; lg3 - PMHx: 00:47 Atrial fibrillation; CHF; COPD; Home O2 via 2.5L NC; lymphedema; "pre diabetes" (R hip);lg3 - PSHx: 00:47 Ankle; section; hip; L ankle; R hip; lg3 - Immunization history:: Adult Immunizations unknown, Client reports having NOT received the Covid vaccine. Flu vaccine is not up to date. - Social history:: Smoking status: Patient denies any tobacco usage or history of. Patient uses alcohol, admits to "couple of beers" a day. - Family history:: not pertinent. ROS: 00:54 Constitutional: Negative for fever, chills, and weight loss, Abdomen/GI: Negative for rt abdominal pain, nausea, vomiting, diarrhea, and constipation, Skin: Negative for injury, rash, and discoloration, Neuro: Negative for headache, weakness, numbness, tingling, and seizure, Psych: Negative for depression, anxiety, suicide ideation, homicidal ideation, and hallucinations, 00:54 Cardiovascular: Positive for edema, Negative for chest pain, 00:54 Respiratory: Positive for cough, shortness of breath, Exam: 00:54 Constitutional: This is a well developed, well nourished patient who is awake, alert, rt and in no acute distress. Head/Face: Normocephalic, atraumatic. Chest/axilla: Normal chest wall appearance and motion. Nontender with no deformity. No lesions are appreciated. Cardiovascular: Regular rate and rhythm with a normal S1 and S2. No gallops, murmurs, or rubs. Normal PMI, no JVD. No pulse deficits. Respiratory: Lungs have equal breath sounds bilaterally, clear to auscultation and percussion. No rales, rhonchi or wheezes noted. No increased work of breathing, no retractions or nasal flaring. Abdomen/GI: Soft, non-tender, with normal bowel sounds. No distension or tympany. No guarding or rebound. No evidence of tenderness throughout. Skin: Warm, dry with normal turgor. Normal color with no rashes, no lesions, and no evidence of cellulitis. Neuro: Awake and alert, GCS 15, oriented to person, place, time, and situation. Cranial nerves II-XII grossly intact. Motor strength 5/5 in all extremities. Sensory grossly intact. Cerebellar exam normal. Normal gait. Psych: Awake, alert, with orientation to person, place and time. Behavior, mood, and affect are within normal limits. 00:54 ECG was reviewed by the Attending Physician. 00:54 Musculoskeletal/extremity: 4+ pitting edema to bilateral lower extremities with weeping wounds. Vital Signs: 00:42 BP 156 / 71; Pulse 111; Resp 19 S; Temp 98.3(O); Pulse Ox 97% on 4 lpm NC; Weight lg3 143.34 kg (M); Height 5 ft. 1 in. ; 01:26 BP 165 / 73; Pulse 116; Resp 17 S; Pulse Ox 97% on 4 lpm NC; lg3 02:59 BP 145 / 71; Pulse 101; Resp 18 S; Pulse Ox 97% on 4 lpm NC; lg3 00:42 Body Mass Index 59.71 (143.34 kg, 154.94 cm) lg3 MDM: 00:32 Patient medically screened. rt 02:54 Differential diagnosis: Pneumonia, pneumothorax, COPD, CHF. Data reviewed: vital signs, rt nurses notes, lab test result(s), EKG, radiologic studies. Consideration of Admission/Observation Escalation of care including admission/observation considered. Management of patient was discussed with the following: Hospitalist: Agrees to accept patient in transfer. I considered the following discharge prescriptions or medication management in the emergency department Medications were administered in the Emergency Department. See MAR. Independent interpretation of the following test(s) in the Emergency Department X-Ray: My interpretation is Edema seen on interpretation of x-ray images. Test considered but Not performed: CT: Symptoms not consistent with pulmonary embolism, CT angiogram not indicated. Care significantly affected by the following chronic conditions: Congestive Heart Failure, Chronic Obstructive Pulmonary Disease. Counseling: I had a detailed discussion with the patient and/or guardian regarding the historical points, exam findings, and any diagnostic results supporting the discharge/admit diagnosis, lab results, radiology results, the need to transfer to another facility. Response to treatment: the patient's symptoms have mildly improved after treatment. 01/31 00:39 Order name: Basic Metabolic Panel; Complete Time: 01:57 rt 01/31 00:39 Order name: CBC with Diff; Complete Time: 02:20 rt 01/31 00:39 Order name: LFT's; Complete Time: 01:57 rt 01/31 00:39 Order name: Magnesium; Complete Time: 01:57 rt 01/31 00:39 Order name: NT PRO-BNP; Complete Time: 01:57 rt 01/31 00:39 Order name: Troponin HS; Complete Time: 01:57 rt 01/31 01:23 Order name: CBC Smear Scan; Complete Time: 02:20 EDMS 01/31 00:39 Order name: XRAY Chest (1 view) rt 01/31 00:39 Order name: EKG; Complete Time: 00:39 rt 01/31 00:39 Order name: Cardiac monitoring; Complete Time: 00:53 rt 01/31 00:39 Order name: EKG - Nurse/Tech; Complete Time: 00:53 rt 01/31 00:39 Order name: IV Saline Lock; Complete Time: 01:08 rt 01/31 00:39 Order name: Labs collected and sent; Complete Time: 01:08 rt 01/31 00:39 Order name: O2 Per Protocol; Complete Time: 00:53 rt 01/31 00:39 Order name: O2 Sat Monitoring; Complete Time: 00:53 rt EC:54 Rate is 112 beats/min. Rhythm is regular, Normal Sinus Rhythm with No ectopy. QRS [place] rt is Normal. MT interval is normal. QRS interval is normal. QT interval is normal. No Q waves. T waves are Normal. No ST changes noted. Administered Medications: 01:12 Drug: Furosemide IVP 40 mg IVP once; give over 2 minutes Route: IVP; Site: left lg3 antecubital; 03:08 Follow up: Response: No adverse reaction; Marked relief of symptoms lg3 Disposition Summary: 01/31/23 02:54 Transfer Ordered Notes: Transfer Location: [facility] rt Reason: Patient request rt Condition: Stable rt Problem: an acute exacerbation rt Symptoms: have improved rt Accepting Physician: Dr. Lenz(01/31/23 04:42) km8 Diagnosis - CHF exacerbation rt - Hypoxia rt Forms: - Medication Reconciliation Form rt - SBAR form rt Signatures: Dispatcher [employer] Alexus Ribera RN RN lg3 Papa Benavidez MD MD rt Tanika Gonzalez RN RN km8 Corrections: (The following items were deleted from the chart) 04:42 02:54 Dr. Lenz rt km8
[2023-01-31 04:46] VITALS: TEMP 98.3; O2SAT 97
[2023-01-31 04:50] VITALS: BP 145/71
--- NOTE | 2023-02-01 14:17 | RAD REPORT ---
EXAM DESCRIPTION: RAD - Chest Single View - 01/31/2023 1:12 am CLINICAL HISTORY: 62 years, Female, DYSPNEA COMPARISON: 11/21/2022. FINDINGS: 1 x-ray views of the chest (portable) was obtained. Prior films were compared. External EK G leads within the [id number]-om-dntj limits diagnosis. The heart is prominent. The thoracic aorta is unre markable. The pulmonary vasculature is normal distribution. No pleural effusions/or focal areas of co nsolidation. Degenerative changes bilateral shoulders. The rest of the soft tissue and bony structure s demonstrate to be unremarkable. IMPRESSION: Cardiomegaly. No focal areas of acute airspace disease. Electronically signed by: Familia Rutherford MD 01/31/2023 1:39 AM CDT Due to temporary technical issues with the PACS/Fluency reporting system, reports are being signed by the in house radiologists without review as a courtesy to insure prompt reporting. The interpreting radiologist is fully responsible for the content of the report.
--- NOTE | 2023-02-02 07:56 | EKG ---
Test Date: 2023-01-31 Test Time: 00:47:26 Manager Of Applications Development: RICARDA MEASUREMENT RESULTS: Intervals: Rate: 112 MS: 152 QRSD: 70 QT: 318 QTc: 434 [place]: P: 71 MS: 152 QRS: 75 T: 43 INTERPRETIVE STATEMENTS: Sinus tachycardia Low voltage QRS Borderline ECG Compared to ECG 11/17/2022 19:17:14 Low QRS voltage now present Sinus rhythm no longer present Atrial abnormality no longer present Electronically Signed On 02-02-23 07:51:48 CDT by Vladimir Julien
== END 2023-01-31 04:42 | disposition short-term general hospital (02) ==
LOC: ER 00:11
DX: I50.9 Heart failure, unspecified (principal); R09.02 Hypoxemia; J44.9 Chronic obstructive pulmonary disease, unspecified; Z99.81 Dependence on supplemental oxygen
CPT/HCPCS: 93005; 85025; 80048; 36415; 83735; 80076; 84484; 83880; 71045; 96374; 99285; J1940

== ENCOUNTER 2024-05-18 16:30 | Inpatient (IN) | payer OTHER ==
--- OUTSIDE RECORDS SUMMARY | 2024-05-18 16:33 | XMS REPORT | Continuity of Care Document ---
Author Name Unknown Address [address] [place] [address] [facility] thconnect Address [address] [place] [address] Care Team Providers Care Second Miller Name Role Phone Gutierrez Romero Primary Care Physician [phone] Gutierrez Romero Attending Clinician [phone] SELINA ADAM Attending Clinician Unavailable Hannah Coyle RN Attending Clinician Unavailab james Lenz MD, Sarabjit Dale Attending Clinician [phone] Jose Dixon MD Attending Clinician [phone] JOSE DIXON Attending Clinician Unavailable Dickson Attending Clinician Unavailable Jose Dixon MD Admitting Clinician [phone] JOSE DIXON Admitting Clinician Unavailable Dickson Admitting Clinician Unavailable Payers Payer Name Policy Type Policy Number Effective Date Expirati on Date Source [place] [id number] 2022 00:00:00 DARS [id number] Problems Condition Name Condition Details Condition Category Status Onset Date Resolution Date Last Treatment Date Treating Clinician Comments Source Pulmonary hypertensi on Pulmonary hypertensi on Disease Active 2023 00:00: 00 [facility] Acute on chronic heart failure with preserved ejection fraction (HFpEF) Acute on chronic heart failure with preserved ejection fraction (HFpEF) Disease Active 2022-04 00:00: 00 [facility] Acute on chronic diastolic CHF (congestiv e heart failure) Acute on chronic diastolic CHF (congestiv e heart failure) Disease Active 2022-04 00:00: 00 [facility] PAF (paroxysma l atrial fibrillati on) PAF (paroxysma l atrial fibrillati on) Disease Active 2022-04 00:00: 00 [facility] DARIO on CPAP DARIO on CPAP Disease Active 2022-04 00:00: 00 [facility] Primary hypertensi on Primary hypertensi on Disease Active 2022-04 00:00: 00 [facility] S/P orthopedic surgery, follow-up exam S/P orthopedic surgery, follow-up exam Disease Active 2016-04 0 00:00: 00 [facility] Trimalleol ar fracture, left, closed, initial encounter Trimalleol ar fracture, left, closed, initial encounter Disease Active 12-30 00:00: 00 [facility] Morbid obesity with body mass index of 40.0-49.9 Morbid obesity with body mass index of 40.0-49.9 Disease Active 9-15 00:00: 00 [facility] Numbness Numbness Disease Active 914 00:00: 00 [facility] Allergies, Adverse Reactions, Alerts Allergy Name Allergy Type Status Severity Reaction(s) Onset Date Inactive Date Treating Clinician Comments Source No Known Drug Allergie s DA Active U 4-11 00:00: 00 [facility] No Known Drug Allergie s DA Active U 07-01 00:00: 00 [facility] NO KNOWN ALLERGIE S Drug Class Active [facility] Social History Social Habit Start Date Stop Date Quantity Comments Source History of tobacco use Cigarette Smoker [facility] of Social function 2023-02-01 00:00:00 2023-02-01 00:00:00 [facility] Cigarettes smoked current (pack per day) - Reported 2023-01-31 00:00:00 2023-01-31 00:00:00 [facility] Tobacco use and exposure 2023-01-31 00:00:00 2023-01-31 00:00:00 Smokeless tobacco non-user [facility] Alcohol intake 2023-01-31 00:00:00 2023-01-31 00:00:00 .29 /d [facility] Alcoholic beverage intake 2023-01-31 00:00:00 2023-01-31 00:00:00 .29 /d [facility] Alcohol Comment 2017-11-24 00:00:00 2017-11-24 00:00:00 regular - 2 drinks nightly [facility] Sex assigned at 1960 00:00:00 1960 00:00:00 [facility] Smoking Status Start Date Stop Date Source Smokes tobacco daily 2023-01-31 00:00:00 [facility] Medications Ordered Medication Name Filled Medication Name Start Date Stop Date Current Medication? Ordering Clinician Indication Dosage Frequency Signature (SIG) Comments Components Source atorvastati n 40 mg tablet 2022-04 15:06: 30 Yes 40mg Take 1 tablet by mouth at bedtime. [facility] Mometasone- Formoterol 200-5 mcg/actuati on inhaler 2022-04 15:06: 30 Yes 2{puff} Inhale 2 Puffs in the morning and 2 Puffs in the evening. [facility] sotaloL 80 mg tablet 2022-04 15:06: 30 Yes 80mg Take 1 tablet by mouth every 12 (twelve) hours. [facility] ibuprofen 800 mg tablet 2022-04 15:06: 30 Yes 800mg Take 800 mg by mouth every 6 (six) hours as needed. [facility] acetaminoph en 325 mg Cap 2022-04 15:06: 30 Yes 500mg Take 500 mg by mouth as needed for Pain (scale 1-3). [facility] acetaminoph en with codeine (TYLENOL-CO DEINE #3 ORAL) 2022-04 15:06: 30 Yes Take by mouth. [facility] gabapentin 100 mg capsule 2022-04 15:06: 30 Yes 100mg Take 1 capsule by mouth in the morning and 1 capsule at noon and 1 capsule in the evening. [facility] naproxen sodium (ALEVE) 220 mg capsule 2022-04 15:06: 30 Yes Take by mouth. [facility] albuterol 2.5 mg/0.5 mL nebulizer solution 2022-04 15:06: 30 Yes 2.5mg Inhale 0.5 mL every 6 (six) hours as needed for Shortness of Breath. [facility] benzonatate 100 mg capsule 2022-04 15:06: 30 Yes 100mg Take 1 capsule by mouth in the morning and 1 capsule at noon and 1 capsule in the evening. [facility] furosemide (LASIX) 40 mg tablet 2022-04 15:06: 30 Yes 40mg Take 1 tablet by mouth every morning and evening. [facility] ipratropium 0.02 % nebulizer solution 2022-04 15:06: 30 Yes .5mg Inhale 2.5 mL every 6 (six) hours as needed for Wheezing. [facility] spironolact one 25 mg tablet 2022-04 15:06: 30 Yes 50mg Take 2 tablets by mouth in the morning. [facility] predniSONE 10 mg tablet 2022-04 15:06: 30 Yes 10mg Take 1 tablet by mouth in the morning. [facility] cyclobenzap rine (FLEXERIL) tablet 10 mg 2022-04 08:33: 07 Yes 10mg 10 mg, Oral, TIDPRN, Starting on Wed02/03/23 at 0333, Until Discontinu ed, Routine, Muscle Spasms [facility] amoxicillin -clavulanat e (AUGMENTIN) 875-125 mg per tablet 1 tablet 2022-04 01:00: 00 02-15 01:59 :00 No 1{tbl} 1 tablet, Oral, Q12H, 24 doses, First dose on Wed02/02/23 at 2000, Last dose on Wed02/14/23 at 0800, Routine
Reason for Anti-Infec tive: Documented Infection< br>Documen lyly Infection Site: Skin / Soft Tissue
Duration of Therapy: 7 days [facility] apixaban 5 mg tablet 2022-04 00:00: 00 03-06 05:59 :00 No 1358 5mg Take 1 tablet by mouth in the morning and 1 tablet in the evening. Do all this for 30 days. Indication s: atrial fibrillati on [facility] amoxicillin -clavulanat e 875-125 mg per tablet 2022-04 00:00: 00 02-15 05:59 :00 No [id number] 00 1{tbl} Take 1 tablet by mouth every 12 (twelve) hours for 11 days. [facility] mupirocin 2 % ointment 2022-04 00:00: 00 02-14 05:59 :00 No [id number] 00 Apply to area(s) 2 (two) times daily for 10 days. [facility] traMADoL (ULTRAM) tablet 50 mg 2022-04 14:09: 04 02-04 14:08 :04 No 50mg 50 mg, Oral, Q8HPRN, Starting on Wed02/02/23 at 0909, Until Ria 02/04/23 at 0908, Routine, Pain (scale 4-6) [facility] apixaban (ELIQUIS) tablet 5 mg 2022-04 13:00: 00 Yes 5mg 5 mg, Oral, BID, First dose on Wed02/02/23 at 0800, Until Discontinu ed, Routine
Indicatio ns: Non-Valvul ar Atrial Fibrillati on [facility] atorvastati n (LIPITOR) tablet 40 mg 2022-04 02:00: 00 Yes 40mg 40 mg, Oral, QHS, First dose on Wed02/01/23 at 2100, Until Discontinu ed, Routine [facility] sotaloL (BETAPACE) tablet 80 mg 2022-04 01:00: 00 Yes 80mg 80 mg, Oral, Q12H, First dose on Wed02/01/23 at 2000, Until Discontinu ed, Routine
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 : JONATHAN WYMAN [facility] mupirocin (BACTROBAN OINT) 2 % skin ointment 2022-04 01:00: 00 Yes [facility] fluticasone propion-rahel meteroL (ADVAIR) 250-50 mcg/dose inhalation disk 1 Puff 2022-04 01:00: 00 Yes 1{puff} 1 Puff, Inhalation , Q12H, First dose on Wed02/01/23 at 2000, Until Discontinu ed [facility] vancomycin 1,250 mg in NaCl 0.9% (NS) 250 mL VIAL-MATE IV piggyback 2022-04 16:15: 00 02-02 13:26 :17 No 1250mg 1,250 mg, IV Piggyback, Q8H ABX, 30 doses, First dose (after last reorder) on Wed02/01/23 at 1115, Last dose on Wed02/11/23 at 0315, Administer over 90 Minutes, 250 mL
Reas on for Anti-Infec tive: Documented Infection< br>Documen lyly Infection Site: Skin / Soft Tissue
Duration of Therapy: 7 days [facility] magnesium sulfate in water 2 gram/50 mL (4 %) infusion 2 g 2022-04 14:15: 00 02-01 15:10 :00 No 2g 2 g, IV Piggyback, Administer over 60 Minutes, ONCE, 1 dose, On Wed02/01/23 at 0915, Routine [facility] spironolact one (ALDACTONE) tablet 25 mg 2022-04 14:00: 00 Yes 25mg 25 mg, Oral, DAILY, First dose on Wed02/01/23 at 0900, Until Discontinu ed, Routine [facility] KCL (KLOR-CON M20) tablet 40 mEq 2022-04 14:00: 00 Yes 40meq 40 mEq, Oral, DAILY, First dose on Wed02/01/23 at 0900, Until Discontinu ed, Routine [facility] KCL (KLOR-CON M20) tablet 40 mEq 2022-04 01:15: 00 02-01 01:29 :00 No 40meq 40 mEq, Oral, ONCE, 1 dose, On Wed01/31/23 at 2015, Routine [facility] vancomycin 1,250 mg in NaCl 0.9% (NS) 250 mL VIAL-MATE IV piggyback 2022-04 00:21: 27 02-01 15:15 :57 No 1250mg 1,250 mg, IV Piggyback, Q8H ABX, 3 doses, First dose (after last modificati on) on Wed01/31/23 at 1930, Last dose on Wed02/01/23 at 1130, Administer over 90 Minutes, 250 mL
Reas on for Anti-Infec tive: Documented Infection< br>Documen lyly Infection Site: Skin / Soft Tissue
Duration of Therapy: 7 days [facility] enoxaparin (LOVENOX) injection 40 mg 2022-04 22:00: 00 02-02 12:50 :30 No 40mg 40 mg, Subcutaneo us, DAILY, First dose on Wed01/31/23 at 1700, Until Discontinu ed, Routine [facility] gabapentin (NEURONTIN) capsule 100 mg 2022-04 19:00: 00 Yes 100mg 100 mg, Oral, TID, First dose on Wed01/31/23 at 1400, Until Discontinu ed, Routine [facility] mup[facility] (BACTROBAN OINT) 2 % skin ointment 2022-04 19:00: 00 02-01 19:29 :58 No [facility] methylPREDN ISolone sod succ (SOLU-MEDRO L (PF)) injection 40 mg 2022-04 19:00: 00 02-01 01:28 :00 No 40mg 40 mg, Intravenou s, Q8H, 2 doses, First dose on Wed01/31/23 at 1400, Last dose on Wed01/31/23 at 2200, 1 mL [facility] sulfur hexafluorid e microsphr (LUMASON) injection 5 mL 2022-04 15:30: 00 01-31 15:42 :00 No [id number] 5mL 5 mL, Intravenou s, ONCE, 1 dose, On Wed01/31/23 at 1042, Routine
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 : DAMIAN HANSEN [facility] furosemide (LASIX) injection 40 mg 2022-04 15:15: 00 Yes 40mg 40 mg, Slow IV Push, Q12H, First dose on Wed01/31/23 at 1015, Until Discontinu ed, Routine [facility] ipratropium -albuteroL (DUONEB) 0.5 mg-3 mg(2.5 mg base)/3 mL nebulizer solution 3 mL 2022-04 14:00: 00 Yes 3mL 3 mL, Inhalation , Q8H, First dose (after last modificati on) on Wed01/31/23 at 0900, Until Discontinu ed, Routine [facility] docusate (COLACE) capsule 100 mg 2022-04 14:00: 00 Yes 100mg 100 mg, Oral, DAILY, First dose on Wed01/31/23 at 0900, Until Discontinu ed, Routine [facility] metoprolol tartrate (LOPRESSOR) tablet 25 mg 2022-04 13:45: 00 02-01 21:32 :09 No 25mg 25 mg, Oral, BID, First dose on Wed01/31/23 at 0845, Until Discontinu ed, Routine [facility] HYDROcodone -acetaminop hen (NORCO 5) 5-325 mg tablet 1 tablet 2022-04 13:33: 35 Yes 1{tbl} 1 tablet, Oral, Q6HPRN, Starting on Wed01/31/23 at 0833, Until Discontinu ed, Routine, Pain (scale 7-10) [facility] vancomycin (VANCOCIN) 1,500 mg in NaCl 0.9% (NS) 500 mL VIAL-MATE IV piggyback 2022-04 13:30: 00 01-31 20:59 :03 No 15mg/kg 1,500 mg (rounded from 2,157 mg = 15 mg/kg ?143.8 kg), IV Piggyback, Q12H ABX, 4 doses, First dose on Wed01/31/23 at 0830, Last dose on Wed02/01/23 at 2030, Administer over 90 Minutes, 500 mL
R julio for Anti-Infec tive: Documented Infection< br>Documen lyly Infection Site: Skin / Soft Tissue
Duration of Therapy: 7 days [facility] traMADoL (ULTRAM) tablet 50 mg 2022-04 13:17: 05 02-02 13:16 :05 No 50mg 50 mg, Oral, Q8HPRN, Starting on Wed01/31/23 at 0817, Until Wed02/02/23 at 0816, Routine, Pain (scale 4-6) [facility] ondansetron (ZOFRAN (PF)) injection 4 mg 2022-04 13:12: 20 Yes 4mg 4 mg, Slow IV Push, Q6HPRN, Starting on Wed01/31/23 at 0812, Until Discontinu ed, Routine, Nausea and Vomiting (N/V) [facility] acetaminoph en (TYLENOL) tablet 650 mg 2022-04 13:09: 25 Yes 650mg 650 mg, Oral, Q6HPRN, Starting on Wed01/31/23 at 0809, Until Discontinu ed, Routine, Pain (scale 1-3) [facility] traMADOL 50 mg tablet 12-19 00:00: 00 Yes 50mg Take 1 tablet by mouth every 4 (four) hours as needed for Pain (scale 7-10). [facility] Polyethylen e Glycol 3350 17 gram powder 12-19 00:00: 00 Yes 17g Take 1 Packet by mouth once daily as needed for Constipati on. [facility] docusate 100 mg capsule 12-19 00:00: 00 Yes 100mg Take 1 capsule by mouth daily. [facility] HYDROcodone -acetaminop hen 5-325 mg tablet 12-19 00:00: 00 Yes 1{tbl} Take 1 tablet by mouth every 6 (six) hours as needed for Pain (scale 7-10). [facility] Vital Signs Vital Name Observation Time Observation Value Comments S shira Systolic blood pressure 2023-02-03 16:27:00 142 mm[Hg] [facility] Diastolic blood pressure 2023-02-03 16:27:00 71 mm[Hg] [facility] Heart rate 2023-02-03 16:27:00 69 /min [facility] Body temperature 2023-02-03 16:27:00 36 Renuka [facility] Respiratory rate 2023-02-03 16:27:00 16 /min [facility] Oxygen saturation in Arterial blood by Pulse oximetry 2023-02-03 16:27:00 100 /min [facility] Body weight 2023-02-03 08:18:00 134.99 kg [facility] BMI 2023-02-03 08:18:00 56.23 kg/m2 [facility] Body height 2023-01-31 10:46:00 154.9 cm [facility] Procedures Procedure Date / Time Performed Performing Clinician Source XR CHEST 1 VW 2023-02-03 15:40:17 Edwardo Good [facility] BASIC METABOLIC PANEL (NA, K, CL, CO2, GLUCOSE, BUN, CREATININE, CA) 2023-02-03 09:09:00 Jonathan Wyman [facility] N-TERMINAL PRO-BNP 2023-02-03 09:09:00 [facility] 2023-02-02 09:20:00 Jose Dixon [facility] BASIC METABOLIC PANEL (NA, K, CL, CO2, GLUCOSE, BUN, CREATININE, CA) 2023-02-02 09:20:00 [place] DIFF 2023-02-02 09:20:00 [facility] 2023-02-02 09:20:00 Jose Dixon [facility] VANCOMYCIN TROUGH 2023-02-02 01:51:00 Jaswinder Paulino [facility] MRSA / MSSA SCREEN BY PCR, ALHAJI 2023-02-01 19:40:00 Jonathan Wyman [facility] XR CHEST 1 VW 2023-02-01 16:47:00 Jose Dixon [facility] MAGNESIUM 2023-02-01 09:45:[facility] (NA, K, CL, CO2, GLUCOSE, BUN, CREATININE, CA) 2023-02-01 09:45:00 [facility] 2023-02-01 09:45:00 [facility] N-TERMINAL PRO-BNP 2023-02-01 09:45:00 [facility] CBC WITH DIFF 2023-01-31 19:50:00 Jose Dixon [facility] GLYCOSYLATED HEMOGLOBIN (A1C) 2023-01-31 19:50:00 [facility] D-DIMER 2023-01-31 19:49:00 Sarabjit Lenz [facility] PHOSPHORUS 2023-01-31 19:48:00 Sarabjit Lenz [facility] MAGNESIUM 2023-01-31 19:48:00 [facility] 2023-01-31 19:48:00 [facility] 2023-01-31 19:48:00 Destiny [facility] BASIC METABOLIC PANEL (NA, K, CL, CO2, GLUCOSE, BUN, CREATININE, CA) 2023-01-31 19:48:00 [place], Jose [facility] N-TERMINAL PRO-BNP 2023-01-31 19:48:00 Jose Dixon [facility] TRANSTHORACIC ECHO (TTE) COMPLETE W/ CONTRAST 2023-01-31 15:54:00 Jose Dixon [facility] Encounters Start Date/Time End Date/Time Encounter Type Admission Type Attending Clinicians Care Facility Care Department Encounter ID Source 2024-01-14 00:00:00 2024-01-14 10:25:10 Letter (Out) Gutierrez Romero [facility] ([facility]) [id number] [facility] 2023-02-08 09:15:00 2023-02-08 09:15:00 Outpatient SELINA ADAM [facility] [id number] [facility] 2023-02-04 00:00:00 2023-02-04 00:00:00 Transition of Care Hannah Coyle [id number] [facility] 2023-01-31 04:54:00 2023-02-03 15:00:00 Hospital Encounter Sarabjit Lenz Jelani GAKATHLEEN [facility] [id number] [facility] 2023-01-31 04:54:00 2023-02-03 15:00:00 Inpatient U JOSE DIXON GAKATHLEEN PRAVEENA [id number] [facility] 2023-01-27 15:22:59 2023-01-27 15:22:59 Outpatient [facility] [id number] Darwin Castro 2023-01-21 09:42:18 2023-01-21 09:42:18 Outpatient [facility] [id number] Darwin Castro 2022-09-03 00:00:00 2022-09-03 00:00:00 Outpatient Praanne_S VFP VFP [id number] [facility] Results Test Description Test Time Test Comments Results Result Co mments Source [facility] [id number] 10:27:40* Test Item Value Reference Range Interpretation Comme nts NT-proBNP (test code = 41074-8) 273 pg/mL <=125 CLIFF (test code = CLIFF) Result Indeterminate-Consid er causes of NT-proBNP elevation other than Heart failure such as acute coronary syndrome, pulmonary embolism, pulmonary hypertension, sepsis, stroke, and renal dysfunction. Lab Interpretation (test code = 44903-5) [facility] 10:23:15* Test Item Value Reference Range Interpretation Comme nts MAGNESIUM (test code = 2913806037) 1.9 mg/dL 1.7-2.4 Lab Interpretation (test cod e = 75264-7) [facility] [id number] 09:39:52* Test Item Value Reference Range Interpretation Comme nts WBC (test code = 6690-2) 5.45 See_Comment [Automated message] The system which generated this result transmitted reference range: 4.30 - 11.10 10*3/?L. The reference range was not used to interpret this result as normal/abnormal. RBC (test code = 789-8) 3.11 See_Comment L [Automated message] The system which generated this result transmitted reference range: 3.93 - 5.25 10*6/?L. The reference range was not used to interpret this result as normal/abnormal. HGB (test code = 718-7) 11.6 g/dL 11.6-15.0 HCT (test code = 4544-3) 35.0 % 35.7-45.2 L MCH (test code = 785-6) 37.3 pg 25.9-32.8 H MCV (test code = 787-2) 112.5 fL 80.6-95.5 H MCHC (test code = 786-4) 33.1 g/dL 31.6-35.1 PLT (test code = 777-3) 216 See_Comment [Automated message] The system which generated this result transmitted reference range: 166 - 358 10*3/?L. The reference range was not used to interpret this result as normal/abnormal. MPV (test code = 35599-8) 9.6 fL 9.5-12.9 RDW-CV (test code = 788-0) 16.7 % 12.0-15.5 H RDW-SD (test code = 63456-0) 69.4 fL 39.0-49.9 H NRBC x10^3 (test code = 4882718398) See_Comment [Automated messa ge] The system which generated this result transmitted reference range: 10*3/?L. The reference range was not used to interpret this result as normal/abnormal. NRBC/100 WBC (test code = 8229806117) 0.0 See_Comment [Automated messa ge] The system which generated this result transmitted reference range: 0.0 - 10.0 /100 WBCs. The reference range was not used to interpret this result as normal/abnormal. IPF % (test code = 9419239901) Lab Interpretation (test code = 13025-1) Abnormal [facility] WITH [id number] 10:52:45* Test Item Value Reference Range Interpretation Comme nts WBC (test code = 6690-2) 3.62 See_Comment L [Automated messa ge] The system which generated this result transmitted reference range: 4.30 - 11.10 10*3/?L. The reference range was not used to interpret this result as normal/abnormal. RBC (test code = 789-8) 3.06 See_Comment L [Automated messa ge] The system which generated this result transmitted reference range: 3.93 - 5.25 10*6/?L. The reference range was not used to interpret this result as normal/abnormal. HGB (test code = 718-7) 11.5 g/dL 11.6-15.0 L HCT (test code = 4544-3) 33.9 % 35.7-45.2 L MCV (test code = 787-2) 110.8 fL 80.6-95.5 H MCH (test code = 785-6) 37.6 pg 25.9-32.8 H MCHC (test code = 786-4) 33.9 g/dL 31.6-35.1 RDW-SD (test code = 03517-9) 67.7 fL 39.0-49.9 H RDW-CV (test code = 788-0) 16.3 % 12.0-15.5 H PLT (test code = 777-3) 222 See_Comment [Automated messa ge] The system which generated this result transmitted reference range: 166 - 358 10*3/?L. The reference range was not used to interpret this result as normal/abnormal. MPV (test code = 09668-4) 10.1 fL 9.5-12.9 NRBC/100 WBC (test code = 8368956093) 0.0 See_Comment [Automated [employer] ssage] The system which generated this result transmitted reference range: 0.0 - 10.0 /100 WBCs. The reference range was not used to interpret this result as normal/abnormal. NRBC x10^3 (test code = 8168591776) See_Comment [Automated messa ge] The system which generated this result transmitted reference range: 10*3/?L. The reference range was not used to interpret this result as normal/abnormal. GRAN MAT (NEUT) % (test code = 770-8) 83.4 % IMM GRAN % (test code = 1009614453) 1.10 % LYMPH % (test code = 736-9) 10.5 % MONO % (test code = 5905-5) 5.0 % EOS % (test code = 713-8) 0.0 % BASO % (test code = 706-2) 0.0 % GRAN MAT x10^3(ANC) (test code = 2452940146) 3.02 10*3/uL 1.88-7.09 IMM GRAN x10^3 (test code = 8619614077) 0.04 10*3/uL 0.00-0.06 LYMPH x10^3 (test code = 731-0) 0.38 10*3/uL 1.32-3.29 L MONO x10^3 (test code = 742-7) 0.18 10*3/uL 0.33-0.92 L EOS x10^3 (test code = 711-2) 0.03-0.39 L BASO x10^3 (test code = 704-7) 0.01-0.07 Lab Interpretation (test code = 66378-2) [facility] [id number] 10:52:24* Test Item Value Reference Range Interpretation Comme nts NT-proBNP (test code = 47240-0) 365 pg/mL <=125 CLIFF (test code = CLIFF) Result Indeterminate-Consid er causes of NT-proBNP elevation other than Heart failure such as acute coronary syndrome, pulmonary embolism, pulmonary hypertension, sepsis, stroke, and renal dysfunction. Lab Interpretation (test code = 38146-4) Abnormal [facility] METABOLIC PANEL (NA, K, CL, CO2, GLUCOSE, BUN, CREATININE, CA)2023-02-01 10:37:02* Test Item Value Reference Range Interpretation Comme nts NA (test code = 7918132343) 134 mmol/L 135-145 L K (test code = 6007219233) 3.6 mmol/L 3.5-5.0 CL (test code = 8101156650) 91 mmol/L 98-108 L CO2 TOTAL (test code = 1231435963) 40 mmol/L 23-31 H AGAP (test code = 4637132130) 3 2-16 BUN (test code = 9232792067) 14 mg/dL 7-23 GLUCOSE (test code = 5381412894) 176 mg/dL 70-110 H CREATININE (test code = 6158083560) 0.44 mg/dL 0.50-1.04 L CALCIUM (test code = 5752459148) 8.7 mg/dL 8.6-10.6 eGFR (test code = 24376-6) 144.0 mL/min/1.73m2 CLIFF (test code = CLIFF) Association of Glomerular Filtration Rate (GFR) and Staging of Kidney Disease* + --+ --+ ------+| GFR (mL/min/1.73 m2) ?| With Kidney Damage ?| ?Without Kidney Damage+ --------+ --------+ +| ?>90 ?| ?Stage one ?| ? Normal ?+ ---+ ---+ -------+| ?60-89 ?| ?Stage two ?| ? Decreased GFR ? + --+ --+ ------+| ?30-59 ?| ?Stage three ?| ? Stage three ? + --+ --+ ------+| ?15-29 ?| ?Stage four ? | ? Stage four ?+ ---+ ---+ -------+| ?<15 (or dialysis) ? ?| ?Stage five ? | ? Stage five ?+ ---+ ---+ -------+ *Each stage assumes the associated GFR level has been in effect for at least three months. ?Stages 1 to 5, with or without kidney disease, indicate chronic kidney disease. Notes: Determination of stages one and two (with eGFR >59mL/min/1.73 m2) requires estimation of kidney damage for at least three months as defined by structural or functional abnormalities of the kidney, manifested by either:Pathological abnormalities or Markers of kidney damage (including abnormalities in the composition of the blood or urine or abnormalities in imaging tests). Lab Interpretation (test code = 57105-6) [facility]* Test Item Value Reference Range Interpretation Comme nts MAGNESIUM (test code = 2467819210) 1.6 mg/dL 1.7-2.4 L Lab Interpretation (test cod e = 27517-9) [facility] 17:43:21* Test Item Value Reference Range Interpretation Comme nts Height (test code = 6816986515) 61 in Weight (test code = 7913411849) 317 lbs Systolic BP (test code = 2745846337) 161 mmHg Diastolic BP (test code = 7829666080) 80 mmHg Heart Rate (test code = 2976814090) 116 bpm BSA (test code = 7294353649) 2.30 m2 LVOT diameter (test code = 8227929038) 1.82 cm LVOT area (test code = 2253195757) 2.60 cm2 LA size (test code = 4865797137) 4.2 cm ACS (test code = 4130538048) 2.20 cm MV E-F slope (test code = 4553655968) 70.20 cm/s MV Peak A Blake (test code = 0389265666) 149.9 cm/s MV dec slope (test code = 1755860652) 3031.00 cm/s2 LVOT stroke volume (test code = 0267494180) 78.30 cm3 LVOT mn grad (test code = 8228512580) 5.8 mmHg LVOT peak VTI (test code = 5033956705) 30.1 cm LV V1 mean (test code = 1835105574) 111.00 cm/s Aortic valve mean velocity (test code = 5707217202) 155.2 cm/s Ao VTI (test code = 0953442228) 42.6 cm AV area by cont VTI (test code = 1310040893) 1.8 cm2 AV area peak blake (test code = 5764836708) 1.7 cm2 AV valve area (test code = 1101340248) 1.84 cm2 AV mean gradient (test code = 6142231811) 11.7 mmHg IVS (test code = 5626725930) 1.30 cm Interventricular Septum Diastolic Thickness by 2D (test code = 5782072) 1.30 cm EF(Teich) (test code = 0776912952) 56.90 % LVIDD (test code = 2581089405) 5.40 cm LVIDS (test code = 3791488476) 3.80 cm Left Ventricular End Systolic Volume by Teichholz Method (test code = 3101332) 61.0 mL Left Ventricular End Diastolic Volume by Teichholz Method (test code = 7952926) 141.6 mL LVPWD (test code = 5549456152) 1.44 cm FS (test code = 5073375770) 30 % MV Peak E Blake (test code = 8041777432) 118.4 cm/s E/A ratio (test code = 7284862793) 0.79 ratio LVOT peak blake (test code = 3004062894) 178.2 cm/s Ao peak blake (test code = 8708980500) 269.5 cm/s AV LVOT peak gradient (test code = 4843965435) 12.7 mmHg Ao max PG (test code = 6678358695) 29.10 mm[Hg] MV valve area p 1/2 method (test code = 0150099911) 19.10 cm2 MV P1/2t max blake (test code = 8616702487) 119.50 cm/s PV PEAK VELOCITY (test code = 6268686648) 89.6 cm/s PV peak gradient (test code = 7521446787) 3.2 mmHg Ao root diam (test code = 2392435738) 3.00 cm AV peak gradient (test code = 5946328547) 29.1 mmHg Aortic root (test code = 2808299747) 3.0 cm Ao root annulus (test code = 4841796913) 3.0 cm PW (test code = 9525455214) 1.44 cm 0.6-1.1 EF - 2D (test code = 40864626) 56.90 % Radiology Study observation (narrative) (test code = 34333-1) CLIFF (test code = CLIFF) ?Left?Ventricle: Left ventricle is mildly dilated. Normal wall thickness. Normal wall motion. Normal systolic function with a visually estimated EF of 55 - 60%. Unable to assess diastolic function due to tachycardia. ?Right?Ventricle: Right ventricle size is normal. Normal systolic function. ?Tricuspid?Valve: Right ventricular systolic pressure is 47 mmHg + RA pressure. ?IVC/SVC: A dilated inferior vena cava suggests increased right atrial pressure. Left VentricleLeft ventricle is mildly dilated. Normal wall thickness. Normal wall motion. Normal systolic function with a visually estimated EF of 55 - 60%. Unable to assess diastolic function due to tachycardia.Right VentricleRight ventricle size is normal. Normal systolic function.Left AtriumLeft atrium size is normal.Right AtriumRight atrium size is normal.IVC/SVCIVC was not well visualized. A dilated inferior vena cava suggests increased right atrial pressure.Mitral ValveMitral valve structure is normal. Trace transvalvular regurgitation.Tricuspi d ValveTricuspid valve structure is normal. Trace transvalvular regurgitation. Right ventricular systolic pressure is 47 mmHg + RA pressure.Aortic ValveAortic valve opens well. No hemodynamically significant .Pulmonic ValveNot well visualized.Ascending AortaNormal sized aorta.PericardiumThe pericardium is normal. No pericardial effusion.Study DetailsStudy quality experienced technical difficulty. A complete echocardiogram was performed using 2D, color flow Doppler and spectral Doppler. 5 mL of Lumason ultrasound enhancing agent used. [facility] METABOLIC [id number] 07:47:00* Test Item Value Reference Range Interpretation Comme nts SODIUM (test code = NA) 139 mmol/L 136-145 N POTASSIUM (test code = K) 4.7 mmol/L 3.5-5.1 N CHLORIDE (test code = CL) 100.0 mmol/L 98-107 N CARBON DIOXIDE (test code = CO2) 29.5 mmol/L 21-32 N GLUCOSE (test code = GLU) 203 mg/dL 70-110 H BLOOD UREA NITROGEN (test code = BUN) 15 mg/dL 7-18 N GLOMERULAR FILTRATION RATE (test code = GFR) 68.5 >60 Unit of m easure: mL/min/1.73 [id number] Range:Healthy Adults >90 mL/min/1.73 m2 For Chronic Kidney Disease: Stage II Mild Decrease in GFR 60-90 Stage III Moderate Decrease in GFR 30-59 Stage IV Severe Decrease in GFR 15-29 Stage V Kidney Failure <15 CREATININE (test code = CREAT) 0.85 mg/dL 0.55-1.30 N CALCIUM (test code = CA) 8.8 mg/dL 8.2-10.1 N - XR PELVIS 1/2 [id number] 07:17:00Patient Name: LORAINE CHUN Unit No: [id number] EXAMS: CPT CODE: [id number] XR PELVIS 1/2 VIEWS 06797 INTRAOPERATIVE LEG LENGTH FILM COMMENT: COMPARISON: No prior exams available. In progress righthip replacement is noted. AP PORTABLE RIGHT HIP COMMENT: The patient is status post joint replacement which is articulating normally. at 0717 Reported and signed by: Kelby Fierro MD CC: Gordon Benitez Technologist: ARABELLA PARK RT(R) Transcribed D/ (0717) t.[email or web address] [facility] NAME: LORAINE CHUN [address] [facility] PHYS: Gordon Hayes : 1960 AGE: 57 SEX: F [place], [place] [address] LOC: YDamian322 A PHONE #: [phone] EXAM DATE: 07/14/2018 STATUS: ADMIN FAX #: [phone] RAD #: D/C DT PAGE 1 Signed Report Patient Name: LORAINE CHUN Unit No: [id number] EXAMS: CPT CODE: [id number] XR PELVIS 1/2 VIEWS 89757 (Continued) Orig Print D/T: S: 07/15/2018 (1027) [facility] NAME: LORAINE CHUN [facility] PHYS: Gordon Hayes : 1960 AGE: 57 SEX: F [place], [place] [address] LOC: Y.322A PHONE #: [phone] EXAM DATE: 07/14/2018 STATUS: ADM IN FAX #: [phone] RAD #: D/C DT PAGE2 Signed Report- XR PELVIS 1/2 [id number] 07:17:00Patient Name: LORAINE CHUN Unit No: [id number] EXAMS: CPT CODE: [id number] XR PELVIS 1/2 VIEWS 46585 INTRAOPERATIVE LEG LENGTH FILM COMMENT: COMPARISON: No prior exams available. In progress righthip replacement is noted. AP PORTABLE RIGHT HIP COMMENT: The patient is status post joint replacement which is articulating normally. at 0717 Reported and signed by: Kelby Fierro MD CC: Gordon Benitez Technologist: ARABELLA PARK RT(R) Transcribed D/ (0717) tEMILIE [facility] NAME: LORAINE CHUN [facility] PHYS: Gordon Hayes : 1960 AGE: 57 SEX: F [place], [place] [address] LOC: Y.322 A PHONE #: [phone] EXAM DATE: 07/14/2018 STATUS: ADM IN FAX #: [phone] RAD #: D/C DT PAGE 1 Signed Report Patient Name: LORAINE CHUN Unit No: [id number] EXAMS: CPT CODE: [id number] XR PELVIS 1/2 VIEWS 67458 (Continued) Orig Print D/T: S: 07/15/2018 (1027) [facility] NAME: LORIANE CHUN [address] PHYS: RENNY BenitezGordon Jung James : 1960 AGE: 57 SEX: F [place], [place] [address] LOC: YAkiko Murdock PHONE #: [phone] EXAM DATE: 07/14/2018 STATUS: ADM IN FAX #: [phone] RAD #: D/C DT PAGE 2 Signed ReportHGB [id number] 05:53:00* Test Item Value Reference Range Interpretation Comme nts HEMOGLOBIN (test code = HGB) 13.3 g/dL 12-16 N HEMATOCRIT (test code = HCT) 39.8 % 37-47 N AB HIV 20:55:00* Test Item Value Reference Range Interpretation Comme nts AB HIV 1 (test code = HIV1AB) NONREACTIVE NONREACTIVE DONE AT: [id number] [place], [place] [address] by [employer] 4[employer] Gen HIV Ag/Ab Combo Screen AB HIV 1 20:55:00* Test Item Value Reference Range Interpretation Comme nts AB HIV 1 2 (test code = SAH82XG) NONREACTIVE NONREACTIVE Done by [employer] 4[employer] HIV Ag/Ab Combo Screen COMPREHENSIVE METABOLIC [id number] 18:08:00* Test Item Value Reference Range Interpretation Comme nts SODIUM (test code = NA) 141 mmol/L 136-145 N POTASSIUM (test code = K) 3.7 mmol/L 3.5-5.1 N CHLORIDE (test code = CL) 96.0 mmol/L 98-107 L CARBON DIOXIDE (test code = CO2) 33.1 mmol/L 21-32 H GLUCOSE (test code = GLU) 88 mg/dL 70-110 N BLOOD UREA NITROGEN (test code = BUN) 16 mg/dL 7-18 N GLOMERULAR FILTRATION RATE (test code = GFR) 88.6 >60 Unit of m easure: mL/min/1.73 [id number] Range:Healthy Adults >90 mL/min/1.73 m2 For Chronic Kidney Disease: Stage II Mild Decrease in GFR 60-90 Stage III Moderate Decrease in GFR 30-59 Stage IV Severe Decrease in GFR 15-29 Stage V Kidney Failure <15 CREATININE (test code = CREAT) 0.68 mg/dL 0.55-1.30 N TOTAL PROTEIN (test code = PROT) 6.9 g/dL 6.4-8.2 N ALBUMIN (test code = ALB) 4.3 g/dL 3.4-5.0 N GLOBULIN (test code = GLOB) 2.6 g/dL 2.2-4.2 N ALBUMIN/GLOBULIN RATIO (test code = A/G) 1.7 0.7-2.0 N CALCIUM (test code = CA) 9.6 mg/dL 8.2-10.1 N BILIRUBIN TOTAL (test code = BILT) 0.75 mg/dL 0.2-1.00 N SGOT/AST (test code = AST) 73.0 U/L 15-37 H SGPT/ALT (test code = ALT) 54.0 U/L 12-78 N Please note new normal range. ALKALINE PHOSPHATASE TOTAL (test code = ALKP) 68 U/L 46-116 N PROTHROMBIN [id number] 17:53:00* Test Item Value Reference Range Interpretation Comme nts PROTHROMBIN TIME PATIENT (test code = PTP) 10.8 secs 10.1-12.5 N INTERNATIONAL NORMAL RATIO (test code = INR) 0.96 <2.0 RECOMMENDED THER APEUTIC RANGE FOR ORAL ANTICOAGULANTTREATMENT: CONDITION INRProphylaxis of venous thrombosis in 2.0 - 3.0 high-risk medical or surgical patientsTreatment of venous thrombosis 2.0 - 3.0Prevention of embolism 2.0 - 3.0Prevention of recurrent embolism, or 3.0 - 4.5 patients with mechanical prosthetic intravascular valves IS PATIENT ON ANTICOAGULANTS ? YLIST ANTICOAGULANT/ANTI PLT MEDICATION : AspirinHas Lab been notified if Patient is on Heparin Drip? NOTHROMBOPLASTIN TIME [id number] 17:53:00* Test Item Value Reference Range Interpretation Comme nts PTT ACTIVATED (test code = APTT) 31.2 secs 24.9-37.0 N IS PATIENT ON ANTICOAGULANTS ? YLIST ANTICOAGULANT/ANTI PLT MEDICATION : AspirinHas Lab been notified if Patient is on Heparin Drip? NOURINALYSIS [id number] 17:40:00* Test Item Value Reference Range Interpretation Comme nts UA COLOR (test code = COLU) YELLOW YELLOW UA APPEARANCE (test code = APPU) SL CLOUDY CLEAR A UA GLUCOSE DIPSTICK (test code = DGLUU) NEGATIVE NEGATIVE UA BILIRUBIN DIPSTICK (test code = BILU) 2+ NEGATIVE A Results may be falsely elevated.Test results should be interpreted with careas no confirmatory test is available. UA KETONE DIPSTICK (test code = KETU) 3+ mg/dL NEG UA SPECIFIC GRAVITY (test code = SGU) 1.025 1.003-1.035 UA BLOOD DIPSTICK (test code = ELLIOTT) NEGATIVE NEGATIVE UA PH DIPSTICK (test code = BERTHA) 6.0 >6.5 UA PROTEIN DIPSTICK (test code = PROU) NEGATIVE mg/dL NEG UA UROBILINIOGEN DIPSTICK (test code = URO) 0.2 mg/dL NORM UA NITRITE DIPSTICK (test code = DEX) NEGATIVE NEG UA LEUKOCYTE ESTERASE DIPSTICK (test code = LEUU) NEGATIVE NEGATIVE UA WBC (test code = WBCU) <5.0 /HPF 0-2 UA RBC (test code = RBCU) 0-2 /HPF 0-2 UA EPITHELIAL CELLS (test code = EPIU) MOD /HPF 0-2 UA BACTERIA (test code = BACU) 1+ /HPF NONE A CBC W/AUTO [id number] 17:30:00* Test Item Value Reference Range Interpretation Comme nts WHITE BLOOD CELL (test code = WBC) [...] 27-34 H MEAN CELL HGB CONCENTRATION (test code = MCHC) 33.9 g/dL 30.8-34.1 N RED CELL DISTRIBUTION WIDTH (test code = RDW) 15.3 % 11-16 N PLT (test code = PLT) 300 K/mm3 130-400 N MEAN PLATELET VOLUME (test c ode = MPV) 9.7 fL 8.9-12.1 N NEUTROPHIL % (test code = NT%) 61.9 [...] K/mm3 0.02-0.10 N MANUAL DIFF REQUIRED (test c ode = MDIFF) NO MANUAL DIFF NUCLEATED RED BLOOD CELL (te st code = NRBC) 0 % 0-0 N Notes Date/Time Note Provider Source 2018-07-15 09:43:00 [facility] ([facility]) Clinical Note REPORT#:[id number] REPORT STATUS: Signed DATE:07/15/18 TIME: 942 PATIENT: LORAINE CHUN UNIT #: [id number] ROOM/BED: [address] : [birth year] AGE: 57 SEX: F ATTEND: Gordon Benitez MD ADM AUTHOR: Anshul Villarreal MD * ALL edits or amendments must be made on the electronic/computer document * Clinical Note Note: [facility] Anshul Jason M.D. (cell text [phone]) Assessment/Plan 1.) Anemia of acute blood loss- .hgb 13.3, asymptomatic. 2.) S/p Right ALVIN- .acute pain control. Anticoagulation as per Dr. Benitez. 3.) Hypertension- .follow BP and hold Rxs if SBP<120. 4.) COPD DARIO- .continue on Rx. * [...] / NonDistended MS/Skin: No Cyanosis / No nodules / +Ankle DF/PF / nl capillary refill [...] 47 %) 39.8 Anshul Jason M.D. at [address] [place] [address] #:[phone] END OF REPORT [facility] 2018-07-15 08:06:00 [facility] ([facility]) Clinical Note REPORT#:[id number] REPORT STATUS: Signed DATE:07/15/18 TIME: 805 PATIENT: LORAINE CHUN UNIT #: [id number] [facility] AGE: 57 SEX: F ATTEND: Gordon Benitez MD ADM AUTHOR: Gordon Benitez MD * ALL edits or amendments must be made on the electronic/computer document * Clinical Note Note: POD# 1 right hip Joint Arthroplasty Patient well, reports pain is mild-moderate AF VSS Exam: dressing dry/intact Moves toes DF/PF Sensory unchanged A/P: Mobilize with physical Therapy DVT prophylaxis ongoing Following labs Remove coverlet, do not recover, patient may shower Discharge planning at [address] [facility] #:[id number] END OF REPORT [facility] 2018-07-15 08:05:00 [facility] ([facility]) Discharge Summary REPORT#:[id number] REPORT STATUS: Signed DATE:07/15/18 TIME: 08 PATIENT: LORAINE CHUN UNIT #: [id number] ROOM/BED: Y322-A : 56 AGE: 57 SEX: F ATTEND: Gordon Benitez MD ADM AUTHOR: Gordon Benitez MD * ALL edits or amendments must be made on the electronic/computer document * PCP PCP Discharge to: home General Information Date of discharge: 07/15/18 Hospital course: Discharge Diagnosis: Right Hip Degenerative Disease Procedure: Right Hip Arthroplasty Hospital Course and Findings The patient underwent the procedure without incident. Findings were significant for degenerative disease of the hip. The patient was hemodynamically and medically monitored during the postoperative period. Anticoagulation was instituted for postoperative DVT prophylaxis. The patient was progressively able to tolerate PO pain medications and the appropriate diet. Physical therapy was instituted, with a progressive ability to ambulate and perform exercises. The patient was eventually deemed stable and safe for discharge. At discharge, the patient was comfortable, with a controlled pain level. There were no chest or abdominal symptoms present. Discharge physical examination demonstrated stable vital signs and no acute distress. The patient had an intact wound with no significant drainage, and no calf tenderness and a negative Doug s sign bilaterally. There were no neurologic or vascular deficits or changes from the preoperative state. Disposition: Discharged to home Discharge Condition: Stable Instructions: Instruction sheet given to patient Activity: Ambulate with assistance, with weight-bearing as instructed in the hospital. Weight bearing limitations were reviewed with the patient during the hospitalization. The Patient was supplied with a walker to help with impaired ambulation during surgical recovery. Diet: As per preoperatively Prescriptions 1. Pain Medications: As per discharge prescription, with progressive weaning as pain decreases 2. Anticoagulation: As per discharge prescription, or PreOp anticoagulant, as discussed with patient Follow-up Appointment: Patient instructed to arrange appointment for an office visit in 2 weeks [facility] Rec Discharge meds: Stop taking the following medications: [TASHI/BACK/BODY] ORAL THREE TIMES DAILY NEEDED. as needed for PAIN ACETAMINOPHEN (TYLENOL) 500 MG TAB ORAL THREE TIMES DAILY NEEDED. as needed for PAIN ASPIRIN (ASPIRIN) 325 MG TAB ORAL EVERY 6 HOURS NEEDED. as needed for PAIN Continue taking these medications: ALBUTEROL (ACCUNEB) 1.25 MG/3 ML NEB 1.25 MILLIGRAM INHALATION THREE TIMES A DAY. IPRATROPIUM (ATROVENT 0.02%) 0.5 MG/2.5 ML NEB 250 MICROGRAM INHALATION RT - THREE TIMES DAILY. BUDESONIDE/FORMOTEROL (SYMBICORT 160/4.5 MCG/ACT) 10.2 GM INHALER 1 PUFF INHALATION RT [...] TABLET ORAL EVERY 6 HOURS NEEDED. as needed for pain Qty = 60 No Refills Instructions: take for breakthrough pain after taking Tramadol METHOCARBAMOL (ROBAXIN) 500 MG TAB 500 MILLIGRAM ORAL FOUR TIMES A DAY. Qty = 20 No Refills traMADol (ULTRAM) 50 MG TAB 50 MILLIGRAM ORAL EVERY FOUR HOURS. Qty = 60 No Refills at 0806 RPT #:[id number] END OF REPORT [facility] 2018-07-14 17:58:00 [facility] ([facility]) Clinical Note REPORT#:[id number] REPORT STATUS: Signed DATE:07/14/18 TIME: 1757 PATIENT: LORAINE CHUN UNIT #: [id number] ROOM/BED: [address] : [birth year] AGE: 57 SEX: F ATTEND: Gordon Benitez MD ADM AUTHOR: Anshul Villarreal MD * ALL edits or amendments must be made on the electronic/computer document * Clinical Note Note: [facility] Anshul Jason MD (cell text [phone]) Internal Medicine Consult at request of : Dr Gordon Benitez Chief Complaint: Right hip pain HPI: .57 yo F now s/p Right Total Hip Arthroplasty (ALVIN) by Dr. Benitez. Ms. Chun relates years of progressive right hip pain (recently severe), worse with activity, and achy and stiff at times in quality. She has failed conservative management. Comorbidities: see below. PmHx: .Hypertension, COPD, DARIO ALLERGY: Allergies: No Known Drug Allergies (Coded, 07/14/18) Home Medications: Home Medications: ALBUTEROL (ACCUNEB) 1.25 MG INH TID IPRATROPIUM (ATROVENT 0.02%) 250 MCG INH RTTID BUDESONIDE/FORMOTEROL (SYMBICORT 160/4.5 MCG/ACT) 1 PUFF INH RTBID ASPIRIN EC (ECOTRIN) 81 MG PO BID MEALS POLYETHYLENE GLYCOL 3350 (MIRALAX) 17 GM PO BEDTIME MELOXICAM (MOBIC) 15 MG PO DAILY HYDROcodone/APAP [...] FiO2 07/14 96.6-97.8 61-74 14-20 114-166/60-79 105 96-100 Gen: Alert, in mild discomfort, nl nutrition. EYE: Nl lids conjunctiva. ENT: Nl ears Nose, nl lips,. Neck: Supple, nl thyroid, No masses. CV: Regular Rate Rhythm, no heave or significant murmur. Edema- none Feet toes normal temperature. RESP: Clear to Auscultation, normal Respiratory effort. ABD: Soft, NonDistended,. LYM: No significant cervical Lymphadenopathy. MS: No Clubbing, cyanosis, NEURO: Nonfocal, grossly normal sensation of LE, +Ankle DF/PF PSY: Normal insight, Normal mood, oriented, . Preop Labs (07/01/18): CBC:. Hgb 15, Plt 300, CHEM: Na 141, K 3.7, Cr 0.68 (eGFR 88.6%), . Ekg: NSR (medium to high risk of complications or morbidity) (major surgery) (IV sedative, meds) Assessment Plan 1.) Anemia of Acute Blood Loss- .will recheck 07/15/18. 2.) S/p Right ALVIN- .acute pain control. Anticoagulation as per Dr. Benitez. 3.) Hypertension- .follow BP and hold Rxs if SBP<120. 4.) COPD DARIO- .continue on Rx. Anshul Jason M.D. Thanks! at 2011 RPT #:[id number] [facility] 15:05:00 [facility] ([facility]) Operative Note - Full REPORT#:[id number] REPORT STATUS: Signed DATE:07/14/18 TIME: 1505 PATIENT: LORAINE CHUN UNIT #: [id number] ROOM/BED: [address] : 56 AGE: 57 SEX: F ATTEND: Gordon Benitez MD ADM AUTHOR: Gordon Benitez MD * ALL edits or amendments must be made on the electronic/computer document * Operative Report Start date: 07/14/18 Start time: 0000 Pre-procedure diagnosis: R HIP OA, OBESITY BMI 50 Post-procedure diagnosis: SAME Procedures performed: R COMPLEX ALVIN Technique/Procedure: Posterior Total Hip Replacement OPERATIVE PROCEDURE IN DETAIL The patient was identified in the holding area, and all questions and concerns were answered. The patient verbally confirmed the site and side of the surgery and marking of the site was done. The patient was brought to the operating room and, after adequate anesthesia was obtained was turned into the lateral decubitus position and held there with a well padded pelvic reed and airplane arm splint. The leg was then prepped in routine sterile manner, following which it was draped free, including the perineum and operative areas with adhesive Ioban Drape. A surgical time-out was performed to identify correct patient, surgical site and surgery. We verified patient had received preoperative antibiotics. The skin incision was made in the axis of the shaft of the femur centered on the greater trochanter and slanted backward in the direction of the fibers of the gluteus marlon. The skin incision was carried through subcutaneous tissue down to fascia. After hemostasis, the fascia was divided in the direction of its fibers, splitting [...] piriformis tendon and the rest of the short external rotators and capsule were identified and cut close to its attachment to the greater trochanter by internally rotating the leg. The hip was then dislocated. Retractors were placed around the femoral neck. Using a neck cuting guide, the femoral head and neck were cut at the pre- templated level. Attention was directed to the acetabulum where anterior and posterior retractors were placed. Remnants of labrum were excised anteriorly and posteriorly using a combination of electrocautery and sharp dissection. Posterior capsule was preserved. The contents of the acetabular fossa were removed by electrocautery and curettes. This allowed visualization of the cavity of the acetabulum, which was then reamed with successive reamers. The acetabular component was then inserted in press-fit mode into the floor of the acetabulum in an appropriate amount of inclination and anteversion. The trial liner was then introduced into the cup. The retractors were removed, and attention was directed to the femur. Electrocautery was used to remove the tendinous stump of piriformis and surrounding soft tissue to expose the lateral-most extent of the femoral neck. A box osteotome was then used to enter the proximal femur, following which the femur was reamed with successive reamers. The femur was then broached with appropriate broaches. A trial neck and head were placed onto the broach and the hip was reduced. ROM and stability were checked. An intraoperative x-ray confirmed placement of the components and it was used to see if any adjustments were needed. The trial components were then removed, and the cup liner was inserted and fully seated. The stem was inserted in press-fit mode. The femoral head was seated onto the trunion. The hip was then reduced after thoroughly cleansing the inner aspect of the acetabulum to assure that all debris was removed. The wound was thoroughly washed, and, after reduction of the hip, the leg was placed on a metal mink rancher slight abduction and internal rotation. The capsule, with overlying short rotators, was then reattached in anatomic fashion to the intertrochanteric line and posterior trochanteric ridge through bony tunnels. The fascia was closed with interrupted #1 Vicryl and #2 Quill sutures. The subcutaneous tissues were closed with as deep layer of #1 Vicryl, superficial layer of 2-0 Vicryl sutures, and the skin edges were re-approximate. An absorbent dressing was applied. A pillow was placed between the knees and the patient was then returned to the recovery room in good condition having tolerated the procedure well. Complexity Case was off added complexity due to patient s morbid obesity with a BMI of 50. We needed additional time for positioning, exposure, handling of the soft tissues, management of limb, positioning of retractors and additional time for complex multilayer closure. This case took 2 times longer than a typical procedure INDICATIONS FOR FIELD SALES CONSULTANT The presence of a skilled surgical dressing maker was medically necessary to aid for the entire procedure. Their responsibilities include patient positioning, retraction of soft tissues for wide exposure so that the surgeon can use both hands to perform the surgery, as well as stabilizing the limb for surgical instrumentation throughout the case. Retraction for exposure/visualization, as well as stabilization of the extremity is vital to the procedure and not possible without an materials assistant. In addition having an materials assistant shortens operative times which decreases expenses and improves outcomes. I am not part of any residency or fellowship training programs and therefore require the help of the materials assistant listed above for this surgery. IMPLANTS Depuy 52 mm Oden cup, 36+4 liner, 3 hi trilock, 36-2 mm METAL head Primary Surgeon: [employer] Manager(s): CAMELIA PAC Anesthesia: TIVA Operative findings: OA Complications: none Estimated blood loss in ml's: 350 Specimens removed/altered: none Implant(s): DEPUY at 1507 RPT #:[id number] [facility] 2018-07-01 16:01:00 [id number] [facility] [address] [id number] PATIENT NAME: LORAINE CHUN ADMIT DATE: ACCOUNT NO: [id number] ROOM NO: AGE: 57 REPORT TYPE: ELECTROCARDIOGRAM SEX: F ADMITTING PHYSICIAN:Gordon Benitez MD ATTENDING PHYSICIAN:Gordon Benitez MD Order: [id number] Test Reason : PREOP CLEARANCE, AGE OVER 50 Test Date/Time Stamp: WedJul 01 2018 16:01:11 Blood Pressure : / mmHG Vent. Rate : 066 BPM Atrial Rate : 066 BPM P-R Int : 176 ms QRS Dur : 088 ms QT Int : 416 ms P-R-T Axes : 064 041 021 degrees QTc Int : 436 ms Normal sinus rhythm Low voltage QRS Nonspecific ST abnormality Borderline ECG No previous ECGs available Confirmed by DYLON STOCK MD ([id number]) on 07/07/2018 12:29:32 PM Referred By: Gordon Benitez Confirmed by:DYLON STOCK MD at 1226 PATIENT NAME: LORAINE CHUN [facility]"
[2024-05-18] MEDS ORDERED: ALBUTEROL 2.5 MG/3 ML NEB SOL ONE (17:30)
[2024-05-18] MEDS ORDERED: METHYLPREDNISOLONE 125 MG INJ ONE (17:30)
[2024-05-18] MEDS ORDERED: IPRATROPIUM BROM 0.5MG/2.5ML ONE (17:30)
[2024-05-18 17:39] LABS: Absolute Basophils 0.1 K/uL (0-0.5); Absolute Eosinophils 0.2 K/uL (0-0.5); Absolute Monocytes 0.8 K/uL (0.1-1.3); Absolute Neutrophil 3.8 K/uL (1.8-8.0); Basophils % 1.4 % (0-1.3); Eosinophils % 3.5 % (0-4.4); Hematocrit 37.6 % (36.0-45.0); Hemoglobin 12.6 g/dL (12.0-15.0); Lymphocytes % 17.7 % (15.3-44.8); MCH 30.8 pg (27.0-35.0); MCHC 33.6 g/dL (32.0-36.0); MCV 91.7 fL (80-100); MPV 7.9 fL (7.6-11.3); Monocytes % 13.1 % (3.3-12.3); Neutrophils % 64.3 % (41.7-73.7); Platelets 307 thou/uL (152-406); Red Cell Distribution Width 18.2 % (12.1-15.2)
[2024-05-18] MEDS ORDERED: FUROSEMIDE 40 MG/4 ML VIAL IV SCH (18:00)
[2024-05-18 18:04] LABS: Anion Gap 10.6 mEq/L (5.0-15.0); Troponin High Sensitivity 32.6 pg/mL (<58.9)
[2024-05-18 18:05] LABS: Potassium 2.7 mEq/L (3.5-5.1)
--- NOTE | 2024-05-18 18:25 | ER ---
Nurse's Notes [facility] Name: Carla Harris Age: 63 yrs Sex: Female : 1960 Arrival Date: 05/18/2024 Time: 16:30 Bed 5 Private MD: Diagnosis: Dyspnea, unspecified;Hypokalemia;Hypo-osmolality and hyponatremia Presentation: 05/18 16:48 Chief complaint: EMS states: they were toned out by family for AMS and low O2. upon EMS kc6 arrival pt appeared lethargic and wasn't maintaining her SPO2 on home O2. Coronavirus screen: At this time, the client does not indicate any symptoms associated with coronavirus-19. Ebola Screen: No symptoms or risks identified at this time. Initial Sepsis Screen: Does the patient meet any 2 criteria? No. Patient's initial sepsis screen is negative. Does the patient have a suspected source of infection? No. Patient's initial sepsis screen is negative. Risk Assessment: Do you want to hurt yourself or someone else? Patient reports no desire to harm self or others. Onset of symptoms was May 18, 2024. Care prior to arrival: IV initiated. 20 GA, in the left antecubital area, Oxygen administered. via a non-rebreather mask. 16:48 Method Of Arrival: EMS: [facility] 16:48 Acuity: DANK 3 kc6 Triage Assessment: 20:21 Respiratory: the patient has moderate shortness of breath. bm8 Historical: - Allergies: 16:51 No Known Allergies; kc6 - PMHx: 16:51 lymphedema; Home O2 via 2.5L NC; COPD; CHF; Atrial fibrillation; Diabetes mellitus; kc6 Hypertensive disorder; - PSHx: 16:51 Ankle; section; hip; L ankle; R hip; kc6 - Immunization history:: Adult Immunizations up to date. - Infectious Disease History:: Denies. - Social history:: Smoking status: Patient denies any tobacco usage or history of. Screenin:[facility] ED Fall Risk Assessment (Adult) History of falling in the last 3 months, kc6 including since admission No falls in past 3 months (0 pts) Confusion or Disorientation No (0 pts) Intoxicated or Sedated No (0 pts) Impaired Gait Yes (1 pt) Mobility Assist Device Used Yes (1 pt) Altered Elimination No (0 pt) Score/Fall Risk Level 0 - 2 = Low Risk Oriented to surroundings, Maintained a safe environment, Educated pt \T\ family on fall prevention, incl call for assistance when getting out of bed. Abuse screen: Denies threats or abuse. Denies injuries from another. Nutritional screening: No deficits noted. Tuberculosis screening: No symptoms or risk factors identified. Assessment: 17:42 General: Appears in no apparent distress. uncomfortable, obese, unkempt, well kc6 developed, Behavior is calm, cooperative, appropriate for age. Pain: Complains of pain in left foot. Neuro: Level of Consciousness is awake, alert, obeys commands, Oriented to person, place, time, situation, Appropriate for age. Cardiovascular: Denies chest pain, Heart tones S1 S2 present Capillary refill < 3 seconds Rhythm is regular. Respiratory: Reports shortness of breath at rest on exertion Airway is patent Trachea midline Respiratory effort is even, labored, pursed lip, using tripod position, Breath sounds with wheezes bilaterally. GI: No signs and/or symptoms were reported involving the gastrointestinal system. : No signs and/or symptoms were reported regarding the genitourinary system. EENT: No signs and/or symptoms were reported regarding the EENT system. Derm: Skin is healthy with good turgor, Skin is dry, Skin is normal, Skin temperature is warm. Musculoskeletal: Circulation, motion, and sensation intact. Range of motion: intact in all extremities, Swelling present in right leg and left leg. 18:42 Reassessment: Patient appears in no apparent distress at this time. No changes from kc6 previously documented assessment. Patient and/or family updated on plan of care and expected duration. Pain level reassessed. Patient is alert, oriented x 3, equal unlabored respirations, skin warm/dry/pink. 19:25 Reassessment: Patient appears in no apparent distress at this time. Patient and/or bm8 family updated on plan of care and expected duration. Pain level reassessed. Patient is alert, oriented x 3, equal unlabored respirations, skin warm/dry/pink. Patient denies pain at this time. Patient states feeling better. Patient states symptoms have improved. Vital Signs: 16:48 BP 130 / 76; Pulse 85; Resp 18 S; Pulse Ox 100% on Non-rebreather mask; Weight 136.08 kc6 kg (R); Height 5 ft. 1 in. ; 17:38 BP 139 / 97; Pulse 85; Resp 20 S; Pulse Ox 100% on Nebulizer Mask; kc6 19:25 BP 156 / 100; Pulse 80; Resp 20; Temp 98.2; Pulse Ox 96% on 3 lpm NC; Pain 0/10; bm8 16:48 Body Mass Index 56.68 (136.08 kg, 154.94 cm) kc6 19:25 Pain Scale: Adult bm8 Lily Coma Score: 19:25 Eye Response: spontaneous(4). Motor Response: obeys commands(6). Verbal Response: bm8 oriented(5). Total: 15. ED Course: 16:32 Patient arrived in ED. ec2 16:32 Edwin Lopes MD is Attending Physician. ec2 16:38 Malorie Deras RN is Primary Nurse. kc6 16:51 Triage completed. kc6 16:51 Arm band placed on. EKG completed in triage. Results shown to MD. kc6 16:51 Repositioned patient. Cleaned of incontinence. Linen changed. pt placed on PureWick. kc6 16:52 Patient has correct armband on for positive identification. Bed in low position. Call kc light in reach. Side rails up X2. panel monitor on. Pulse ox on. NIBP on. Door closed. Noise minimized. Lights dimmed. Pillow given. 16:53 Oxygen administration via non-rebreather mask \T\ 15L/min. kc6 16:53 Maintain EMS IV. Dressing intact. Good blood return noted. Site clean \T\ dry. Gauge \T\ zari 6 site: 20G LAC. Flushed with 10 mL NS. 17:39 XRAY Chest (1 view) In Process Unspecified. EDMS 17:41 Repositioned patient. Cleaned of incontinence. Linen changed. kc6 18:24 Prince Berger MD is Hospitalizing Provider. ec2 19:12 Report given to SALUD Frias \T\ SALUD Bueno. kc6 19:25 Provided Education on: need for admission. bm8 19:25 No provider procedures requiring assistance completed. IV is patent, with fluids bm8 infusing freely, with good blood return, Flushed left antecubital with 5 ml normal saline. Oxygen administration via nasal cannula \T\ 3L/min Response to oxygen therapy: symptoms improved. 20:21 Patient admitted, IV remains in place. bm8 Administered Medications: 17:36 Drug: DuoNeb Nebulize (3:1) (2.5 mg - 0.5 mg) 3 ml Nebulizer once Route: Nebulizer; kc6 19:12 Follow up: Response: No adverse reaction kc6 17:36 Drug: MethylPrednisoLONE IVP 125 mg IVP once Route: IVP; Site: left antecubital; kc6 19:12 Follow up: Response: No adverse reaction kc6 19:11 Drug: Furosemide IVP 80 mg IVP once; give over 2 minutes Route: IVP; Site: left kc6 antecubital; 19:26 Follow up: Response: No adverse reaction bm8 19:11 Drug: Potassium Chloride PO 40 mEq PO once Route: PO; kc6 19:26 Follow up: Response: No adverse reaction bm8 Medication: 19:25 VIS not applicable for this client. bm8 Outcome: 18:24 Decision to Hospitalize by Provider. ec2 19:25 Admitted to Med/surg accompanied by tech, via stretcher, room 203, with chart, bm8 19:25 Condition: stable 19:25 Instructed on the need for admit, Demonstrated understanding of instructions, follow-up care, 20:20 Patient left the ED. bm8 Signatures: Dispatcher [employer] Malorie Begum, RN RN kc6 Edwin Lpoes MD MD ec2 Rodriguez Orozco RN RN bm8
--- NOTE | 2024-05-18 18:25 | EDPHYS ---
Physician Documentation [facility] [place], [place] Name: Carla Harris Age: 63 yrs Sex: Female : 1960 Arrival Date: 05/18/2024 Time: 16:30 Bed 5 Private MD: ED Physician Edwin Lopes HPI: 05/18 16:48 This 63 yrs old Female presents to ER via Unassigned with complaints of ec2 Breathing Difficulty. 16:49 Patient arrives today d/t concern for sob. hx of chf, copd, reports baseline oxygen ec2 requirement. reports frequent cough. no fevers, no n/v/d. . Historical: - Allergies: 16:51 No Known Allergies; kc6 - PMHx: 16:51 lymphedema; Home O2 via 2.5L NC; COPD; CHF; Atrial fibrillation; Diabetes mellitus; kc6 Hypertensive disorder; - PSHx: 16:51 Ankle; section; hip; L ankle; R hip; kc6 - Immunization history:: Adult Immunizations up to date. - Infectious Disease History:: Denies. - Social history:: Smoking status: Patient denies any tobacco usage or history of. ROS: 16:50 Constitutional: as per hpi ec2 Exam: 16:50 Constitutional: GEN: NAD Head: atraumatic Eyes: EOMI Ears: External ears are ec2 normal. CV: regular rate , BL LE edemaLUNGS: no respiratory distress, occasional scattered wheeze ABD: non-distended SKIN: no evidence of rashes MSK: no evidence of trauma Vital Signs: 16:48 BP 130 / 76; Pulse 85; Resp 18 S; Pulse Ox 100% on Non-rebreather mask; Weight 136.08 kc6 kg (R); Height 5 ft. 1 in. ; 17:38 BP 139 / 97; Pulse 85; Resp 20 S; Pulse Ox 100% on Nebulizer Mask; kc6 19:25 BP 156 / 100; Pulse 80; Resp 20; Temp 98.2; Pulse Ox 96% on 3 lpm NC; Pain 0/10; bm8 16:48 Body Mass Index 56.68 (136.08 kg, 154.94 cm) kc6 19:25 Pain Scale: Adult bm8 Driggs Coma Score: 19:25 Eye Response: spontaneous(4). Motor Response: obeys commands(6). Verbal Response: bm8 oriented(5). Total: 15. MDM: 16:32 Medical Screening Exam initiated ec2 16:50 Data reviewed: vital signs, nurses notes. ED course: Patient arrives today for ec2 progressive shortness of breath. Examination is revealing for nontoxic individual who is hemodynamically stable. Will obtain lab work, EKG, chest x-ray. Differential diagnoses considered include processes such as CHF exacerbation, COPD exacerbation, pneumonia. 16:59 ED course: EKG independently reviewed and interpreted by me, shows normal sinus rhythm, ec2 rate of 83, no acute ST segment elevations, intervals are nonactionable, motion artifact noted.. 18:08 ED course: Metabolic profile shows hyponatremia with a sodium of 128. Hypokalemia at ec2 2.7. BNP minimally elevated at 338. Troponin within normal ranges.. 18:23 ED course: On reassessment patient with some improvement in symptoms. Patient does have ec2 significant bilateral lower extremity edema, will admit for diuresis. Will give the patient potassium as well given the patient's hypokalemia.. 05/18 16:42 Order name: Basic Metabolic Panel; Complete Time: 18:07 ec2 05/18 16:42 Order name: CBC with Diff; Complete Time: 17:51 ec2 05/18 16:42 Order name: Troponin HS; Complete Time: 18:07 ec2 05/18 16:42 Order name: BNP; Complete Time: 18:07 ec2 05/18 18:38 Order name: Magnesium EDMS 05/18 18:38 Order name: Phosphorus EDMS 05/18 18:38 Order name: Basic Metabolic Panel EDMS 05/18 18:38 Order name: Basic Metabolic Panel EDMS 05/18 18:38 Order name: CBC with Automated Diff EDMS 05/18 18:38 Order name: CBC with Automated Diff EDMS 05/18 18:38 Order name: Lipid Profile EDMS 05/18 18:38 Order name: Lipid Profile EDMS 05/18 18:39 Order name: Protime (+INR) EDMS 05/18 18:39 Order name: PTT, Activated Partial Thromb EDMS 05/18 19:41 Order name: ABG Arterial Blood Gas EDMS 05/18 16:42 Order name: XRAY Chest (1 view) ec2 05/18 18:38 Order name: Echo with Doppler EDAZ 05/18 16:42 Order name: Cardiac monitoring; Complete Time: 17:27 ec2 05/18 16:42 Order name: EKG - Nurse/Tech; Complete Time: 16:53 ec2 05/18 16:42 Order name: IV Saline Lock; Complete Time: 16:53 ec2 05/18 16:42 Order name: Labs collected and sent; Complete Time: 17:27 ec2 05/18 16:42 Order name: O2 Per Protocol; Complete Time: 16:53 ec2 05/18 16:42 Order name: O2 Sat Monitoring; Complete Time: 16:53 ec2 Administered Medications: 17:36 Drug: DuoNeb Nebulize (3:1) (2.5 mg - 0.5 mg) 3 ml Nebulizer once Route: Nebulizer; kc6 19:12 Follow up: Response: No adverse reaction kc6 17:36 Drug: MethylPrednisoLONE IVP 125 mg IVP once Route: IVP; Site: left antecubital; kc6 19:12 Follow up: Response: No adverse reaction kc6 19:11 Drug: Furosemide IVP 80 mg IVP once; give over 2 minutes Route: IVP; Site: left kc6 antecubital; 19:26 Follow up: Response: No adverse reaction bm8 19:11 Drug: Potassium Chloride PO 40 mEq PO once Route: PO; kc6 19:26 Follow up: Response: No adverse reaction bm8 Disposition Summary: 05/18/24 18:24 Hospitalization Ordered Notes: Hospitalization Status: Inpatient Admission ec2 Provider: Prince C[facility] Condition: Stable ec2 Problem: an acute exacerbation ec2 Symptoms: have improved ec2 Bed/Room Type: Standard ec2 Room Assignment: 203(05/18/24 19:13) rv1 Diagnosis - Dyspnea, unspecified ec2 - Hypokalemia ec2 - Hypo-osmolality and hyponatremia ec2 Forms: - Medication Reconciliation Form ec2 - SBAR form ec2 - Leadership Thank You Letter ec2 Signatures: Dispatcher [employer] Malorie Begum RN RN kc6 Kitty Hammond rv1 Edwin Lopes MD MD ec2 Rodriguez Orozco RN bm8 Corrections: (The following items were deleted from the chart) 16:43 16:43 Chest Single View+RAD.RAD.BRZ ordered. EDMS EDMS 18:23 16:50 Constitutional: GEN: NAD Head: atraumatic Eyes: EOMI Ears: External ears are ec2 normal. CV: regular rate LUNGS: no respiratory distress, occasional scattered wheeze ABD: non-distended SKIN: no evidence of rashes MSK: no evidence of trauma ec2 19:13 18:24 ec2 rv1
[2024-05-18] MEDS ORDERED: ONDANSETRON 4 MG/2 ML VIAL IV PRN (18:33)
[2024-05-18] MEDS ORDERED: POTASSIUM CL SA 10 MEQ TAB PO ONE (18:44)
--- NOTE | 2024-05-18 18:44 | RAD REPORT ---
EXAMINATION: ONE VIEW CHEST XR CLINICAL INDICATION: Female, 63 years old.,COUGH TECHNIQUE: Frontal chest projection is submitted. Examination is limited by patient positioning and t echnique. COMPARISON: 01/31/2023 FINDINGS: The lungs are well inflated and clear. No pneumothorax or sizable effusion. Stable cardiomegaly. Med iastinal contours are unremarkable. IMPRESSION: No acute pulmonary process. Stable cardiomegaly.
--- NOTE | 2024-05-18 19:04 | P.HP ---
Certification for Inpatient Patient admitted to: Inpatient With expected LOS: >2 Midnights Practitioner: I am a practitioner with admitting privileges, knowledge of patient current condition, hospital course, and medical plan of care. Services: Services provided to patient in accordance with Admission requirements found in Title 42 Section 412.3 of the Code of Federal Regulations Patient History Date of Service: 05/18/24 Reason for admission: shortness of breath, CHF/COPD History of Present Illness: Patient is a 63-year-old female with past medical history of morbid obesity, obstructive sleep apnea, chronic respiratory failure on 3 L at baseline, COPD, atrial fibrillation on Eliquis, and diastolic CHF. She presented to the ER via EMS for evaluation of shortness of breath. Patient states that she first developed tingling sensations involving both her lower and extremities. This feeling progressed to her face and lips. She became very anxious and developed shortness of breath. She tried to use a breathing treatment at home. However, after a temporary relief, she became dyspneic again. Patient also reports lower extremity swelling recently. This has progressed to weeping especially in her left lower extremity. Workup in the ER revealed potassium of 2.9, sodium of 128 and a BNP in the 330 range. She received Lasix in the ER. She is being admitted for electrolyte abnormalities and decompensated CHF. Allergies No Known Allergies Allergy (Verified 11/17/22 23:23) Home Medications: Acetaminophen [Tylenol Extra Strength] 500 mg PO PRN 10/10/21 Furosemide 20 mg PO TID 10/10/21 Atorvastatin Calcium [Lipitor] 40 mg PO BEDTIME #30 tab 10/13/21 Sotalol HCl [Betapace*] 80 mg PO BID 6AM 6PM #60 tab 10/13/21 Spironolactone [Aldactone*] 25 mg PO BID #60 tab 10/13/21 Apixaban [Eliquis] 5 mg PO BID #60 tab 04/19/22 Benzonatate [Tessalon Perle*] 100 mg PO TID PRN #30 cap 04/19/22 Albuterol Neb [Proventil 0.083% Neb Soln] 2.5 mg NEB Q8HR 11/17/22 Amlodipine Besylate [Norvasc] 10 mg PO BID 11/17/22 Budesonide/Glycopyr/Formoterol [Breztri Aerosphere Inhaler] 2 inhaler IH BID 11/17/22 Ipratropium Neb [Atrovent*] 0.5 mg NEB Q8HR 11/17/22 Potassium Chloride 20 meq PO TID 11/17/22 Ipratropium Neb [Atrovent*] 0.5 mg NEB [id number] PRN #120 amp 11/27/22 Pantoprazole [Protonix Tab] 40 mg PO DAILY #30 tab 11/27/22 Sucralfate [Carafate*] 10 ml PO ACHS #30 ea 11/27/22 - Past Medical/Surgical History Diabetic: No -: COPD -: HTN -: HLD -: DARIO -: Tr Cellulitis -: Chronic diastolic congestive heart failure -: Atrial fibrillation on chronic anticoagulation -: -: hip/ankle surgery Psychosocial/ Personal History: Pt currently unemployed after a fall last year, lives with family - Family History Mother -: Cancer Notes: stomach - Social History Alcohol use: No CD- Drugs: No Caffeine use: No Physical Examination - Physical Exam General: Obese (Morbidly obese and physically deconditioned) HEENT: Atraumatic, Normocephalic Respiratory: Diminished Cardiovascular: Regular rate/rhythm, Normal S1 S2 (Bilateral lower extremity edema), Edema Neurological: Normal speech - Studies Laboratory Data (last 24 hrs) 05/18/24 05/18/24 17:21 17:21 WBC 5.80 Hgb 12.6 Hct 37.6 Plt Count 307 Sodium 128 L Potassium 2.7 L BUN 14 Creatinine 0.85 Glucose 117 H Assessment and Plan - Problems (Diagnosis) (1) Acute and chronic respiratory failure Current Visit: Yes Status: Acute (2) Atrial fibrillation Current Visit: Yes Status: Acute (3) Morbid obesity Current Visit: Yes Status: Acute (4) Acute on chronic diastolic heart failure Current Visit: No Status: Acute (5) COPD exacerbation Current Visit: No Status: Acute (6) Obstructive sleep apnea Current Visit: No Status: Acute - Plan Assessment This is a 63-year-old female with multiple cardiopulmonary issues including atrial fibrillation, diastolic CHF, DARIO, COPD. She is being admitted after she presented with paresthesia diffusely progressing and shortness of breath. She has a potassium of 2.7. Her BNP is 333. She has bilateral lower extremity edema with weeping. During my evaluation, patient was on 3 L of oxygen which is baseline for her. Acute on chronic respiratory failure Acute on chronic diastolic CHF Possible COPD exacerbation Atrial fibrillation Obstructive sleep apnea on CPAP at home Morbid obesity Hyponatremia Hypokalemia Hypocalcemia Plan: Will admit inpatient with telemetry Patient has severe metabolic alkalosis. Diuresis with Diamox Electrolyte repletion. Ordered oral and IV potassium chloride Check for magnesium and phosphorus Strict ins and outs 2D echo ordered Patient was also given a trial of Solu-Medrol and DuoNebs for possible COPD exacerbation PT/OT as tolerated Resume rest of home medications upon reconciliation - Advance Directives Does patient have a Living Will: No Does patient have a Durable POA for Healthcare: No
[2024-05-18 19:38] LABS: Arterial Blood Carboxyhemoglob 1.1 % (0-1.5); Blood Gas Oxyhemoglobin 90.5 % (94-97); Blood Gas THB 13.3 g/dl (12-18); Blood O2 Saturation 93.1 % (92-98.5)
[2024-05-18] MEDS: NA CHLORIDE 0.9% 250 ML ONE (21:46)
[2024-05-18] MEDS: KCL 20 MEQ/100 mL IVPB 100 ML IV SCH (21:46)
[2024-05-18] MEDS: POTASSIUM 25 MEQ EFFERV TAB PO ONE (21:47)
[2024-05-18] MEDS: ACETAZOLAMIDE 500 MG IV IV SCH (21:47)
[2024-05-18] MEDS: WATER FOR INJ,STERILE 10 ML ONE (22:13)
[2024-05-18] MEDS: LORazepam 2 MG/ML VIAL IV PRN (22:51)
[2024-05-18] MEDS: IPRATROPIUM BROM 0.5MG/2.5ML NEB PRN (23:04)
[2024-05-18] MEDS: ALBUTEROL 2.5 MG/3 ML NEB SOL NEB PRN (23:04)
[2024-05-18 23:12] LABS: PT Prothrombin Time 21.2 SECONDS (9.4-12.5); PTT, Activated Partial Thromb 34.6 SECONDS (24.3-36.9); Protime INR 2.03
[2024-05-18 23:33] LABS: Magnesium 1.1 mg/dL (1.6-2.4)
[2024-05-18] MEDS ORDERED: Magnesium Sulfate 2gm IVPB 2 G/50 ML BAG IV ONE (23:45)
[2024-05-18 23:59] LABS: Albumin/Globulin Ratio 0.7 (1.1-1.8); Bilirubin Direct 0.3 mg/dL (0-0.2); Bilirubin Indirect, Calculated 0.6 mg/dL (0.2-0.8); Bilirubin Total 0.9 mg/dL (0.2-1.0); Globulin 4.3 g/dL (2.3-3.5); Phosphorus 3.6 mg/dL (2.5-4.9); Protein, Total 7.3 g/dL (6.4-8.2)
[2024-05-19] MEDS: METHYLPREDNISOLONE 40 MG INJ IV SCH ×2 (01:20→20:20)
[2024-05-19] MEDS: Magnesium Sulfate 2gm IVPB 2 G/50 ML BAG IV ONE (01:20)
[2024-05-19] MEDS ORDERED: ALBUTEROL INHALER 200 PUFF/6.7 GM IH PRN (03:44)
[2024-05-19] MEDS ORDERED: BENZONATATE 100 MG CAP PO PRN (03:46)
[2024-05-19 04:14] VITALS: BMI 58.1
[2024-05-19 05:11] LABS: Absolute Lymphocytes (CBC) 0.4 K/uL (0.7-4.9); Absolute Monocytes 0.1 K/uL (0.1-1.3); Absolute Neutrophil 2.2 K/uL (1.8-8.0); Basophils % 0.4 % (0-1.3); Hemoglobin 11.8 g/dL (12.0-15.0); Lymphocytes % 15.7 % (15.3-44.8); MCH 30.6 pg (27.0-35.0); MCHC 32.8 g/dL (32.0-36.0); MCV 93.1 fL (80-100); MPV 8.4 fL (7.6-11.3); Monocytes % 2.4 % (3.3-12.3); Neutrophils % 81.5 % (41.7-73.7); Nucleated Red Blood Cells % 0.1 % (0-0); Platelets 295 thou/uL (152-406); RBC Red Blood Cell Count 3.87 M/uL (3.86-4.86)
[2024-05-19] MEDS: SOTALOL HCL 80 MG TAB PO SCH (06:01)
[2024-05-19 06:29] LABS: Anion Gap 11.1 mEq/L (5.0-15.0); Magnesium 1.6 mg/dL (1.6-2.4); Potassium 3.1 mEq/L (3.5-5.1)
[2024-05-19] MEDS: MAGNESIUM SULFATE 1 gm IVPB 1 GM/100 ML BAG IV ONE (08:10)
[2024-05-19] MEDS: ENOXAPARIN 40 MG/0.4 ML SQ SCH (08:13)
[2024-05-19] MEDS: APIXABAN 5 MG TABLET PO SCH (08:13)
[2024-05-19] MEDS: SERTRALINE HCL 50 MG TAB PO SCH (08:13)
[2024-05-19] MEDS: GABAPENTIN 300 MG CAP PO SCH (08:13)
[2024-05-19] MEDS: HOME MED 1 EA UNK (Budesonide/Glycopyr/Formoterol [Breztri Aerosphere Inhaler] 10.7 GM Hfa IH SCH (08:14)
[2024-05-19] MEDS: POTASSIUM 25 MEQ EFFERV TAB PO ONE (08:14)
[2024-05-19] MEDS ORDERED: AMLODIPINE 10 MG TAB PO SCH (09:00)
[2024-05-19] MEDS: HOME MED 1 EA UNK (Ipratropium Bromide [Atrovent Hfa] 12.9 GM Hfa.Aer.Ad) IH SCH (09:00)
[2024-05-19 10:50] LABS: SARS-CoV-2 Antigen CONTROL BLUE LINE VIS/BG OK; SARS-CoV-2 Antigen Rapid Res Negative (Negative)
--- NOTE | 2024-05-19 13:14 | P.PN ---
Subjective Date of Service: 05/19/24 Chief Complaint: shortness of breath, CHF/COPD Subjective: Improving Patient states that she is doing fine denied any shortness of breath or chest pain but chest congestion, she had a difficulty moving her leg yesterday but today she is able to move her legs arms without any difficulty Physical Examination - Vital Signs Temperature: 97.7 F Blood Pressure: 111/62 Pulse: 71 Respirations: 16 Pulse Ox (%): 94 - Studies Laboratory Data (last 24 hrs) 05/18/24 05/18/24 17:21 17:21 WBC 5.80 Hgb 12.6 Hct 37.6 Plt Count 307 Sodium 128 L Potassium 2.7 L BUN 14 Creatinine 0.85 Glucose 117 H Assessment And Plan - Plan Patient is a 63-year-old female with past medical history of morbid obesity, obstructive sleep apnea, chronic respiratory failure on 3 L at baseline, COPD, atrial fibrillation on Eliquis, and diastolic CHF. She presented to the ER via EMS for evaluation of shortness of breath. She first developed tingling sensations involving both her lower and extremities. This feeling progressed to her face and lips. She became very anxious and developed shortness of breath. Workup in the ER revealed potassium of 2.9, sodium of 128 and a BNP in the 330 range. She received Lasix in the ER. She is being admitted for electrolyte abnormalities and decompensated CHF. #1 stable chronic hypercapnic and hypoxic respiratory failure ABG reviewed pH 7.45, pCO2 63 mmHg, serum bicarb 41, continue on nocturnal BiPAP and titrate oxygen down to keep saturation 88 to 90% to prevent CO2 narcosis #2 compensated chronic diastolic heart failure Chest x-ray negative for pulmonary edema, normal N-terminal proBNP, will continue acetazolamide, TTE ordered #3 Possible COPD exacerbation I will order viral respiratory pathogen by rapid antigen test, I will titrate down methylprednisolone 40 mg every 12 hour, #4 paroxysmal atrial fibrillation on apixaban Telemetry overnight reviewed, normal sinus rhythm and infrequent PVC, will continue sotalol and apixaban #5 Obstructive sleep apnea on CPAP at home Continue nocturnal BiPAP during hospitalization #6 Electrolyte imbalance secondary to diuretics IV and oral supplement given, will repeat BMP tomorrow DVT prophylaxis apixaban Disposition plan to discharge home in a few days
[2024-05-19] MEDS: ATORVASTATIN 40 MG TAB PO SCH (20:20)
[2024-05-19] MEDS: ALBUTEROL 2.5 MG/3 ML NEB SOL NEB PRN (21:21)
[2024-05-19] MEDS: IPRATROPIUM BROM 0.5MG/2.5ML NEB PRN (21:21)
[2024-05-19] MEDS: ACETAMINOPHEN 325 MG TABLET PO PRN (23:36)
[2024-05-20 07:38] LABS: Anion Gap 9.5 mEq/L (5.0-15.0)
[2024-05-20 07:41] LABS: Potassium 2.5 mEq/L (3.5-5.1)
[2024-05-20] MEDS: NA CHLORIDE 0.9% 250 ML ONE (08:16)
[2024-05-20] MEDS: KCL 20 MEQ/100 mL IVPB 20 MEQ/100 ML BAG IV SCH (08:25)
[2024-05-20] MEDS: IPRATROPIUM BROM 0.5MG/2.5ML NEB SCH (09:00)
[2024-05-20] MEDS: acetaZOLAMIDE 250 MG TAB PO SCH (09:00)
--- NOTE | 2024-05-20 11:05 | P.PN ---
Subjective Date of Service: 05/20/24 Chief Complaint: shortness of breath, CHF/COPD Subjective: No new changes Patient says he is doing fine, she is bed ridden at home. She is not able to ambulate at home. Complaining of serous discharge of the left leg. Review of Systems Other: Consitutional; fever(-), chills (-), rigor(-), night sweat(-), unintentional weight loss(-), malaise (-) HEENT; diplopia (-), rhinorrhea (-), epistaxis (-), otorrhea (-), otalgia (-) Respiratory; shortness of breath (-), wheezing (-), cough (-), sputum (-), pleuritic chest pain (-) Cardiovascular; chest pain (-), peripheral edema (+), paroxysmal nocturnal dyspnea (-), orthopnea (-) Gastrointestinal; nausea (-), vomiting (-), abdominal pain (-), diarrhea (-), constipation (-), melena (-), hematochezia (-) Genitourinary; urinary frequency (-), dysuria (-), urgency (-), flank pain (-), gross hematuria (-), incontinence (-) Skin; rash (-), pruritus (-) PHARMACY TECH; headache (-), paresthesia (-), numbness (-), paralysis (-) Physical Examination - Vital Signs Temperature: 98.0 F Blood Pressure: 108/55 Pulse: 70 Respirations: 16 Pulse Ox (%): 95 - Physical Exam Other Physical/Emotional Findings: - Physical Exam. General: Morbidly obese, not acutely ill looking, in no apparent distress,. HEENT: Normocephalic, atraumatic, nonicteric sclera, nonanemic conjunctive. Neck: Supple, without JVD or goiter or thyroid mass. Respiratory: Normal breathing effort, clear to auscultation bilaterally, no crackles no wheezing or rhonchi. Cardiovascular: Regular rate and rhythm, S1, S2 normal, no murmur no gallop. Gastrointestinal: Normal bowel sounds, nondistended, nontender, No ascites, , No masses, no hepatosplenomegaly. Extremities : No clubbing, +1+1 peripheral edema with status dermatitis, dry clean, operative wound of the left ankle, clear serous discharge. Integumentary: No rashes, petechia, suspected lesions. Lymphatics: No axilla or cervical lymphadenopathy. Neurology; alert awake oriented x3, no focal neurologic deficit, normal affection . mood and behavior. Assessment And Plan - Plan Patient is a 63-year-old female with past medical history of morbid obesity, obstructive sleep apnea, chronic respiratory failure on 3 L at baseline, COPD, atrial fibrillation on Eliquis, and diastolic CHF. She presented to the ER via EMS for evaluation of shortness of breath. She first developed tingling sensations involving both her lower and extremities. This feeling progressed to her face and lips. She became very anxious and developed shortness of breath. Workup in the ER revealed potassium of 2.9, sodium of 128 and a BNP in the 330 range. She received Lasix in the ER. She is being admitted for electrolyte abnormalities and decompensated CHF. #1 stable chronic hypercapnic and hypoxic respiratory failure ABG reviewed pH 7.45, pCO2 63 mmHg, serum bicarb 41, continue on nocturnal BiPAP and titrate oxygen down to keep saturation 88 to 90% to prevent CO2 narcosis #2 compensated chronic diastolic heart failure Chest x-ray negative for pulmonary edema, normal N-terminal proBNP, I will change IV acetazolamide to oral, TTE ordered #3 Possible COPD exacerbation Tested negative for influenza A and B and COVID-19 RSV by rapid antigen test, steroid tapered off, scheduled bronchodilator #4 paroxysmal atrial fibrillation on apixaban Telemetry overnight reviewed, normal sinus rhythm and infrequent PVC, will continue sotalol and apixaban #5 Obstructive sleep apnea on CPAP at home Continue nocturnal BiPAP during hospitalization #6 hypokalemia secondary to diuretics IV and oral supplement given, spironolactone added, #7 status dermatitis with chronic venous insufficiency of both lower extremity Elevate the legs and diuretic DVT prophylaxis apixaban Disposition plan to discharge home in a couple of days
[2024-05-20] MEDS: SPIRONOLACTONE 25 MG TABLET PO SCH (12:38)
[2024-05-21 04:57] LABS: Absolute Lymphocytes (CBC) 0.9 K/uL (0.7-4.9); Absolute Monocytes 0.8 K/uL (0.1-1.3); Absolute Neutrophil 5.2 K/uL (1.8-8.0); Basophils % 0.2 % (0-1.3); Eosinophils % 0.1 % (0-4.4); Hematocrit 34.8 % (36.0-45.0); Hemoglobin 11.6 g/dL (12.0-15.0); Lymphocytes % 12.8 % (15.3-44.8); MCH 30.8 pg (27.0-35.0); MCHC 33.2 g/dL (32.0-36.0); MCV 92.8 fL (80-100); MPV 8.1 fL (7.6-11.3); Monocytes % 11.5 % (3.3-12.3); Neutrophils % 75.4 % (41.7-73.7); Nucleated Red Blood Cells % 0.1 % (0-0); Platelets 277 thou/uL (152-406); RBC Red Blood Cell Count 3.75 M/uL (3.86-4.86)
[2024-05-21 05:24] LABS: Anion Gap 6.7 mEq/L (5.0-15.0); Potassium 2.7 mEq/L (3.5-5.1)
[2024-05-21] MEDS: ALBUTEROL 2.5 MG/3 ML NEB SOL NEB PRN (07:23)
[2024-05-21] MEDS: POTASSIUM CL SA 10 MEQ TAB PO SCH (08:38)
[2024-05-21] MEDS ORDERED: GLUCAGON 1 MG/VIAL IM PRN (09:06)
[2024-05-21] MEDS ORDERED: D10W 125 ML IV PRN (09:06)
--- NOTE | 2024-05-21 09:43 | P.PN ---
Subjective Date of Service: 05/21/24 Chief Complaint: shortness of breath, CHF/COPD Subjective: No new changes Patient says he is doing fine, she is bed ridden at home. She is still complaining of lower extremity edema but no chest pain or shortness of breath. She is using nocturnal BiPAP at bedside Review of Systems Other: Consitutional; fever(-), chills (-), rigor(-), night sweat(-), unintentional weight loss(-), malaise (-) HEENT; diplopia (-), rhinorrhea (-), epistaxis (-), otorrhea (-), otalgia (-) Respiratory; shortness of breath (-), wheezing (-), cough (-), sputum (-), pleuritic chest pain (-) Cardiovascular; chest pain (-), peripheral edema (+), paroxysmal nocturnal dyspnea (-), orthopnea (-) Gastrointestinal; nausea (-), vomiting (-), abdominal pain (-), diarrhea (-), constipation (-), melena (-), hematochezia (-) Genitourinary; urinary frequency (-), dysuria (-), urgency (-), flank pain (-), gross hematuria (-), incontinence (-) Skin; rash (-), pruritus (-) CHIEF OF FIELD OPERATIONS; headache (-), paresthesia (-), numbness (-), paralysis (-) Physical Examination - Vital Signs Temperature: 97.7 F Blood Pressure: 106/55 Pulse: 68 Respirations: 16 Pulse Ox (%): 95 - Physical Exam Other Physical/Emotional Findings: - Physical Exam. General: Morbidly obese, not acutely ill looking, in no apparent distress,. HEENT: Normocephalic, atraumatic, nonicteric sclera, nonanemic conjunctive. Neck: Supple, without JVD or goiter or thyroid mass. Respiratory: Normal breathing effort, clear to auscultation bilaterally, no crackles no wheezing or rhonchi. Cardiovascular: Regular rate and rhythm, S1, S2 normal, no murmur no gallop. Gastrointestinal: Normal bowel sounds, nondistended, nontender, No ascites, , No masses, no hepatosplenomegaly. Extremities : No clubbing, +1+1 peripheral edema with status dermatitis, dry clean, operative wound of the left ankle, clear serous discharge. Integumentary: No rashes, petechia, suspected lesions. Lymphatics: No axilla or cervical lymphadenopathy. Neurology; alert awake oriented x3, no focal neurologic deficit, normal affection . mood and behavior. Assessment And Plan - Plan Patient is a 63-year-old female with past medical history of morbid obesity, obstructive sleep apnea, chronic respiratory failure on 3 L at baseline, COPD, atrial fibrillation on Eliquis, and diastolic CHF. She presented to the ER via EMS for evaluation of shortness of breath. She first developed tingling sensations involving both her lower and extremities. This feeling progressed to her face and lips. She became very anxious and developed shortness of breath. Workup in the ER revealed potassium of 2.9, sodium of 128 and a BNP in the 330 range. She received Lasix in the ER. She is being admitted for electrolyte abnormalities and decompensated CHF. #1 stable chronic hypercapnic and hypoxic respiratory failure ABG reviewed pH 7.45, pCO2 63 mmHg, serum bicarb 41, continue on nocturnal BiPAP and titrate oxygen down to keep saturation 88 to 90% to prevent CO2 narcosis #2 compensated chronic diastolic heart failure Chest x-ray negative for pulmonary edema, normal N-terminal proBNP, oral acetazolamide, spironolactone, TTE results pending #3 Possible COPD exacerbation Tested negative for influenza A and B and COVID-19 RSV by rapid antigen test, steroid tapered off, scheduled bronchodilator #4 paroxysmal atrial fibrillation on apixaban Telemetry overnight reviewed, normal sinus rhythm and infrequent PVC, will continue sotalol and apixaban #5 Obstructive sleep apnea on CPAP at home Continue nocturnal BiPAP during hospitalization #6 hypokalemia secondary to diuretics IV and oral supplement given, recheck BMP tomorrow #7 status dermatitis with chronic venous insufficiency of both lower extremity Continue diuretic elevate the legs and diuretic #8 hyperglycemia without history of diabetes rule out glucocorticoid induced hyperglycemia No recent hemoglobin A1c available, serum glucose elevated, I will put her on moderate dose corrective insulin, I will request hemoglobin A1c tomorrow morning DVT prophylaxis apixaban Disposition plan to discharge home in a couple of days
[2024-05-21] MEDS: INSULIN REGULAR (HUMAN) 100 UNIT/ML SQ SCH (11:35)
[2024-05-22 05:21] LABS: Anion Gap 3.5 mEq/L (5.0-15.0); Potassium 3.5 mEq/L (3.5-5.1)
--- NOTE | 2024-05-22 07:22 | ECHO ---
HEIGHT: 5 ft 1 in WEIGHT: 307 lb 8.718 oz DATE OF STUDY: 05/19/[address]: Prince Mathieu Berger MD 2-DIMENSIONAL: YES M.MODE: YES DOPPLER: YES COLOR FLOW: YES TDS: YES PORTABLE: YES DEFINITY: BUBBLE STUDY: DIAGNOSIS: CONGESTIVE HEART FAILURE EXACERBATION CARDIAC HISTORY: CATHERIZATION: NO SURGERY: NO PROSTHETIC VALVE: NO PACEMAKER: NO MEASUREMENTS (cm) DIASTOLIC (NORMALS) SYSTOLIC (NORMALS) IVSd 1.3 (0.6-1.2) LA Diam 2.8 (1.9-4.0) LVEF 55-60% LVIDd 5.2 (3.5-5.7) LVIDs 3.5 (2.0-3.5) %FS 33% LVPWd 1.4 (0.6-1.2) Ao Diam 2.0 (2.0-3.7) 2 DIMENSIONAL ASSESSMENT: RIGHT ATRIUM: NORMAL LEFT ATRIUM: NORMAL RIGHT VENTRICLE: NORMAL LEFT VENTRICLE: NORMAL TRICUSPID VALVE: TRACE TRICUSPID REGURGITATION MITRAL VALVE: NORMAL PULMONIC VALVE: NOT SEEN AORTIC VALVE: NORMAL PERICARDIAL EFFUSION: SMALL CIRCUMFRENTIAL EFFUSION AORTIC ROOT: NORMAL LEFT VENTRICULAR WALL MOTION: NORMAL DOPPLER/COLOR FLOW: NORMAL COMMENTS: 1. NORMAL LEFT VENTRICULAR SYSTOLIC FUNCTION, EJECTION FRACTION 55-60%, NORMAL WALL MOTION 2. NORMAL DIASTOLIC FUNCTION 3. NORMAL FILLING PRESSURE TECHNOLOGIST: GEM MERCADO
[2024-05-22] MEDS: IPRATROPIUM BROM 0.5MG/2.5ML NEB SCH (08:04)
[2024-05-22] MEDS: POTASSIUM CL SA 10 MEQ TAB PO ONE (10:12)
[2024-05-22 10:27] VITALS: O2SAT 94
[2024-05-22 12:49] VITALS: BP 116/59; TEMP 97.8
--- NOTE | 2024-05-22 16:36 | P.DS ---
Admission Date: 05/18/24 Discharge Date: 05/22/24 Disposition: ROUTINE DISCHARGE Discharge Condition: GOOD Reason for Admission: shortness of breath, CHF/COPD Brief History of Present Illness: Diagnosis Stable chronic hypercapnic and hypoxic respiratory failure Compensated chronic diastolic heart failure Possible COPD exacerbation Paroxysmal atrial fibrillation on apixaban Obstructive sleep apnea on CPAP at home Hypokalemia secondary to diuretics Status dermatitis with chronic venous insufficiency of both lower extremity Hyperglycemia without history of diabetes rule out glucocorticoid induced hyperglycemia HPI 05/18/24 Patient is a 63-year-old female with past medical history of morbid obesity, obstructive sleep apnea, chronic respiratory failure on 3 L at baseline, COPD, atrial fibrillation on Eliquis, and diastolic CHF. She presented to the ER via EMS for evaluation of shortness of breath. Patient states that she first developed tingling sensations involving both her lower and extremities. This feeling progressed to her face and lips. She became very anxious and developed shortness of breath. She tried to use a breathing treatment at home. However, after a temporary relief, she became dyspneic again. Patient also reports lower extremity swelling recently. This has progressed to weeping especially in her left lower extremity. Workup in the ER revealed potassium of 2.9, sodium of 128 and a BNP in the 330 range. She received Lasix in the ER. She is being admitted for electrolyte abnormalities and decompensated CHF. Hospital Course: Patient was admitted and treated for the following diagnoses Stable chronic hypercapnic and hypoxic respiratory failure ABG reviewed pH 7.45, pCO2 63 mmHg, serum bicarb 41 Tolerated nocturnal BiPAP and oxygen titrated down keeping saturation from 88 to 90% to prevent CO2 narcosis nebulizer treatments tolerated and improved respiratory condition Compensated chronic diastolic heart failure Chest x-ray negative for pulmonary edema normal N-terminal proBNP Tolerated and improved with oral acetazolamide and spironolactone TTE reports EF 55-60%, trace tricuspid regurgitation Possible COPD exacerbation Tested negative for influenza A and B, COVID-19, and RSV by rapid antigen test, steroid tapered off and tolerated scheduled bronchodilator provided improvement Paroxysmal atrial fibrillation on apixaban Telemetry overnight reviewed, normal sinus rhythm and infrequent PVC continued sotalol and apixaban Obstructive sleep apnea on CPAP at home Continued nocturnal BiPAP during hospitalization Hypokalemia secondary to diuretics IV and oral supplement administered and improved Status dermatitis with chronic venous insufficiency of both lower extremity Continued diuretic and elevated the legs as tolerated Hyperglycemia without history of diabetes rule out glucocorticoid induced hyperglycemia hemoglobin A1c 5.7 serum glucose mildly elevated On 05/22/24, Carla was seen on morning rounds and deemed hemodynamically stable for discharge. Acetazolamide and bactroban prescribed. Carla will need to follow up with her personal desilverizer and PCP. General: AAOx3, NAD, afebrile HEENT: MMM, nare normal Respiratory: symmetrical chest expansion, no accessory muscles used, lungs clear on ausultation, on 2LNC Cardiac: NSR, S1 S2 present, no murmurs noted Extremities: Edema present, peripheral pulses 2+ Abdominal: soft/NT/ND on palpation Skin: warm, pink, and dry Neurological: clear speech, appropriate Vital Signs/Physical Exam: Temp Pulse Resp BP Pulse Ox 97.8 F 77 16 116/59 L 96 05/22/24 12:00 05/22/24 12:00 05/22/24 12:00 05/22/24 12:00 05/22/24 12:00 Other Physical/Emotional Findings: - Physical Exam. General: Morbidly obese, not acutely ill looking, in no apparent distress,. HEENT: Normocephalic, atraumatic, nonicteric sclera, nonanemic conjunctive. Neck: Supple, without JVD or goiter or thyroid mass. Respiratory: Normal breathing effort, clear to auscultation bilaterally, no crackles no wheezing or rhonchi. Cardiovascular: Regular rate and rhythm, S1, S2 normal, no murmur no gallop. Gastrointestinal: Normal bowel sounds, nondistended, nontender, No ascites, , No masses, no hepatosplenomegaly. Extremities : No clubbing, +1+1 peripheral edema with status dermatitis, dry clean, operative wound of the left ankle, clear serous discharge. Integumentary: No rashes, petechia, suspected lesions. Lymphatics: No axilla or cervical lymphadenopathy. Neurology; alert awake oriented x3, no focal neurologic deficit, normal affection . mood and behavior. Laboratory Data at Discharge: WBC 6.90 thou/uL (4.3-10.9) 05/21/24 04:28 Hgb 11.6 g/dL (12.0-15.0) L 05/21/24 04:28 Hct 34.8 % (36.0-45.0) L 05/21/24 04:28 Plt Count 277 thou/uL (152-406) 05/21/24 04:28 PT 21.2 SECONDS (9.4-12.5) H 05/18/24 22:18 INR 2.03 05/18/24 22:18 APTT 34.6 SECONDS (24.3-36.9) 05/18/24 22:18 Sodium 134 mEq/L (136-145) L 05/22/24 04:29 Potassium 3.5 mEq/L (3.5-5.1) D 05/22/24 04:29 BUN 19 mg/dL (7-18) H 05/22/24 04:29 Creatinine 0.61 mg/dL (0.55-1.02) 05/22/24 04:29 Glucose 123 mg/dL (74-106) H 05/22/24 04:29 Phosphorus 3.6 mg/dL (2.5-4.9) 05/18/24 22:18 Magnesium 2.0 mg/dL (1.6-2.4) 05/20/24 07:00 Total Bilirubin 0.9 mg/dL (0.2-1.0) 05/18/24 22:18 AST 66 U/L (15-37) H 05/18/24 22:18 ALT 29 U/L (13-56) 05/18/24 22:18 Alkaline Phosphatase 89 U/L (45-117) 05/18/24 22:18 Triglycerides 72 mg/dL (<150) 05/19/24 04:38 Cholesterol 222 mg/dL (<200) H 05/19/24 04:38 HDL Cholesterol 100 mg/dL (40-60) H 05/19/24 04:38 Cholesterol/HDL Ratio 2.22 05/19/24 04:38 Home Medications: Furosemide 40 mg PO TID 10/10/21 Atorvastatin Calcium [Lipitor] 40 mg PO BEDTIME #30 tab 10/13/21 Sotalol HCl [Betapace*] 80 mg PO BID 6AM 6PM #60 tab 10/13/21 Spironolactone [Aldactone*] 25 mg PO BID #60 tab 10/13/21 Apixaban [Eliquis] 5 mg PO BID #60 tab 04/19/22 Benzonatate [Tessalon Perle*] 100 mg PO TID PRN #30 cap 04/19/22 Albuterol Neb [Proventil 0.083% Neb Soln] 2.5 mg NEB Q8HR PRN 11/17/22 Amlodipine Besylate [Norvasc] 10 mg PO DAILY 11/17/22 Budesonide/Glycopyr/Formoterol [Breztri Aerosphere Inhaler] 2 inhaler IH BID 11/17/22 Ipratropium Neb [Atrovent*] 0.5 mg NEB Q8HR 11/17/22 Albuterol Sulfate [Albuterol Sulfate Hfa] 2 puff IH Q6HP PRN 05/19/24 Gabapentin 300 mg PO TID 05/19/24 Ipratropium [place] [Atrovent Hfa] 2 puff IH QID 05/19/24 Sertraline [Zoloft*] 50 mg PO DAILY 05/19/24 Mupirocin Oint [Bactroban 2% Ointment] 22 appl TP TID #1 tube 05/22/24 acetaZOLAMIDE [Acetazolamide] 250 mg PO DAILY #30 tab 05/22/24 New Medications: acetaZOLAMIDE [Acetazolamide] 250 mg PO DAILY #30 tab Mupirocin Oint [Bactroban 2% Ointment] 22 appl TP TID #1 tube Physician Discharge Instructions: OK TO DC IV AND DC HOME FOLLOW-UP WITH PRIMARY CARE PROVIDER IN 1-2 WEEKS FOLLOW-UP WITH CARDIOLOGY IN 1-2 WEEKS RETURN TO THE ER IF SYMPTOMS WORSENS CALL DR. LINDA AT [phone] IF ANY QUESTIONS REGARDING HOSPITAL STAY. PLEASE CALL THE FLOOR AT [phone] IF ANY MEDICATION OR NURSING QUESTIONS. Diet: Low sodium Activity: Fall precautions Followup: Gutierrez Romero MD [Primary Care Provider] - 1-2 Weeks
== END 2024-05-22 17:59 | disposition home or self-care (01) | DRG 291 ==
LOC: ER 16:30 → ERHOLD 18:55 → 2ND 19:35
PROVIDERS: ADMIT Internal Medicine; ATTEND Hospitalist
PROC: 4A033R1 Measurement of Arterial Saturation, Peripheral, Percutaneous Approach (ICD-10-PCS; principal; 2024-05-18)
PROC: 5A09357 Assistance with Respiratory Ventilation, Less than 24 Consecutive Hours, Continuous Positive Airway Pressure (ICD-10-PCS; 2024-05-18)
DX: I11.0 Hypertensive heart disease with heart failure (principal); I50.33 Acute on chronic diastolic (congestive) heart failure; J96.21 Acute and chronic respiratory failure with hypoxia; J96.22 Acute and chronic respiratory failure with hypercapnia; J44.1 Chronic obstructive pulmonary disease with (acute) exacerbation; Z68.43 Body mass index [BMI] 50.0-59.9, adult; E87.1 Hypo-osmolality and hyponatremia; E83.51 Hypocalcemia; I48.0 Paroxysmal atrial fibrillation; E66.01 Morbid (severe) obesity due to excess calories; G47.33 Obstructive sleep apnea (adult) (pediatric); E78.5 Hyperlipidemia, unspecified; E87.6 Hypokalemia; L30.8 Other specified dermatitis; I87.2 Venous insufficiency (chronic) (peripheral); Z79.01 Long term (current) use of anticoagulants; R73.9 Hyperglycemia, unspecified; T38.0X5A Adverse effect of glucocorticoids and synthetic analogues, initial encounter; Z11.52 Encounter for screening for COVID-19
CPT/HCPCS: 36415; 36600; 71045; 80048; 80061; 80076; 82805; 82947; 83036; 83735; 83880; 84100; 84132; 84484; 85025; 85610; 85730; 87804; 87807; 87811; 93005; 93306; 94640; 94660; 96374; 96375; 99285; J1120; J1650; J1940; J2919; J3475; J3480; J7050; J7613; J7644

== ENCOUNTER 2024-08-25 11:47 | Inpatient (IN) | payer OTHER ==
--- OUTSIDE RECORDS SUMMARY | 2024-08-25 11:52 | XMS REPORT | Continuity of Care Document ---
Author Name Unknown Address [address] [place] [address] [facility] Address 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 Role Phone Gutierrez Romero Primary Care Physician [phone] Gutierrez Romero Attending Clinician [phone] SELINA ADAM Attending Clinician Unavailable Leonides BRANNON, Hannah Garcia Attending Clinician Unavailab james Lenz MD, Sarabjit Dale Attending Clinician [phone] Jose Dixon MD Attending Clinician [phone] JOSE DIXON Attending Clinician Unavailable Dickson Attending Clinician Unavailable Jose Dixon MD Admitting Clinician [phone] JOSE DIXON Admitting Clinician Unavailable Dickson Admitting Clinician Unavailable Payers Payer Name Policy Type Policy Number Effective Date Expirati on Date Source [place]/PLUS [id number] 2022 00:00:00 DARS [id number] Problems Condition Name Condition Details Condition Category Status Onset Date Resolution Date Last Treatment Date Treating Clinician Comments Source Pulmonary hypertensi on Pulmonary hypertensi on Disease Active 2022-04 0 00:00: 00 [facility] Acute on chronic heart failure with preserved ejection fraction (HFpEF) Acute on chronic heart failure with preserved ejection fraction (HFpEF) Disease Active 2022-04 00:00: 00 [facility] Acute on chronic diastolic CHF (congestiv e heart failure) Acute on chronic diastolic CHF (congestiv e heart failure) Disease Active 2022-04 0 00:00: 00 [facility] PAF (paroxysma l atrial fibrillati on) PAF (paroxysma l atrial fibrillati on) Disease Active 2022-04 0 00:00: 00 [facility] DARIO on CPAP DARIO on CPAP Disease Active 2022-04 00:00: 00 [facility] Primary hypertensi on Primary hypertensi on Disease Active 2022-04 00:00: 00 [facility] S/P orthopedic surgery, follow-up exam S/P orthopedic surgery, follow-up exam Disease Active 2016-04 0 00:00: 00 [facility] Trimalleol ar fracture, left, closed, initial encounter Trimalleol ar fracture, left, closed, initial encounter Disease Active 12-30 00:00: 00 [facility] Morbid obesity with body mass index of 40.0-49.9 Morbid obesity with body mass index of 40.0-49.9 Disease Active 9-15 00:00: 00 [facility] Numbness Numbness Disease Active 914 00:00: 00 [facility] Allergies, Adverse Reactions, Alerts Allergy Name Allergy Type Status Severity Reaction(s) Onset Date Inactive Date Treating Clinician Comments Source No Known Drug Allergie s DA Active U 4-11 00:00: 00 [facility] No Known Drug Allergie s DA Active U 07-01 00:00: 00 [facility] NO KNOWN ALLERGIE S Drug Class Active [facility] Social History Social Habit Start Date Stop Date Quantity Comments Source History of tobacco use Cigarette Smoker [facility] History of Social function 2023-02-01 00:00:00 2023-02-01 00:00:00 [facility] Cigarettes smoked current (pack per day) - Reported 2023-01-31 00:00:00 2023-01-31 00:00:00 [facility] Tobacco use and exposure 2023-01-31 00:00:00 2023-01-31 00:00:00 Smokeless tobacco non-user [facility] Alcohol intake 2023-01-31 00:00:00 2023-01-31 00:00:00 .29 /d [facility] Alcoholic beverage intake 2023-01-31 00:00:00 2023-01-31 00:00:00 .29 /d [facility] Alcohol Comment 2017-11-24 00:00:00 2017-11-24 00:00:00 regular - 2 drinks nightly [facility] Sex assigned at 1960 00:00:00 1960 00:00:00 [facility] Smoking Status Start Date Stop Date Source Smokes tobacco daily 2023-01-31 00:00:00 [facility] Medications Ordered Medication Name Filled Medication Name Start Date Stop Date Current Medication? Ordering Clinician Indication Dosage Frequency Signature (SIG) Comments Components Source atorvastati n 40 mg tablet 2022-04 15:06: 30 Yes 40mg Take 1 tablet by mouth at bedtime. [facility] Mometasone- Formoterol 200-5 mcg/actuati on inhaler 2022-04 15:06: 30 Yes 2{puff} Inhale 2 Puffs in the morning and 2 Puffs in the evening. [facility] sotaloL 80 mg tablet 2022-04 15:06: 30 Yes 80mg Take 1 tablet by mouth every 12 (twelve) hours. [facility] ibuprofen 800 mg tablet 2022-04 15:06: 30 Yes 800mg Take 800 mg by mouth every 6 (six) hours as needed. [facility] acetaminoph en 325 mg Cap 2022-04 15:06: 30 Yes 500mg Take 500 mg by mouth as needed for Pain (scale 1-3). [facility] acetaminoph en with codeine (TYLENOL-CO DEINE #3 ORAL) 2022-04 15:06: 30 Yes Take by mouth. [facility] gabapentin 100 mg capsule 2022-04 15:06: 30 Yes 100mg Take 1 capsule by mouth in the morning and 1 capsule at noon and 1 capsule in the evening. [facility] naproxen sodium (ALEVE) 220 mg capsule 2022-04 15:06: 30 Yes Take by mouth. [facility] albuterol 2.5 mg/0.5 mL nebulizer solution 2022-04 15:06: 30 Yes 2.5mg Inhale 0.5 mL every 6 (six) hours as needed for Shortness of Breath. [facility] benzonatate 100 mg capsule 2022-04 15:06: 30 Yes 100mg Take 1 capsule by mouth in the morning and 1 capsule at noon and 1 capsule in the evening. [facility] furosemide (LASIX) 40 mg tablet 2022-04 15:06: 30 Yes 40mg Take 1 tablet by mouth every morning and evening. [facility] ipratropium 0.02 % nebulizer solution 2022-04 15:06: 30 Yes .5mg Inhale 2.5 mL every 6 (six) hours as needed for Wheezing. [facility] spironolact one 25 mg tablet 2022-04 15:06: 30 Yes 50mg Take 2 tablets by mouth in the morning. [facility] predniSONE 10 mg tablet 2022-04 15:06: 30 Yes 10mg Take 1 tablet by mouth in the morning. [facility] cyclobenzap rine (FLEXERIL) tablet 10 mg 2022-04 08:33: 07 Yes 10mg 10 mg, Oral, TIDPRN, Starting on Wed02/03/23 at 0333, Until Discontinu ed, Routine, Muscle Spasms [facility] amoxicillin -clavulanat e (AUGMENTIN) 875-125 mg per tablet 1 tablet 2022-04 01:00: 00 02-15 01:59 :00 No 1{tbl} 1 tablet, Oral, Q12H, 24 doses, First dose on Wed02/02/23 at 2000, Last dose on Wed02/14/23 at 0800, Routine
Reason for Anti-Infec tive: Documented Infection< br>Documen lyly Infection Site: Skin / Soft Tissue
Duration of Therapy: 7 days [facility] apixaban 5 mg tablet 2022-04 00:00: 00 03-06 05:59 :00 No 1358 5mg Take 1 tablet by mouth in the morning and 1 tablet in the evening. Do all this for 30 days. Indication s: atrial fibrillati on [facility] amoxicillin -clavulanat e 875-125 mg per tablet 2022-04 00:00: 00 02-15 05:59 :00 No [id number] 00 1{tbl} Take 1 tablet by mouth every 12 (twelve) hours for 11 days. [facility] mupirocin 2 % ointment 2022-04 00:00: 00 02-14 05:59 :00 No [id number] 00 Apply to area(s) 2 (two) times daily for 10 days. [facility] traMADoL (ULTRAM) tablet 50 mg 2022-04 14:09: 04 02-04 14:08 :04 No 50mg 50 mg, Oral, Q8HPRN, Starting on Wed02/02/23 at 0909, Until Ria 02/04/23 at 0908, Routine, Pain (scale 4-6) [facility] apixaban (ELIQUIS) tablet 5 mg 2022-04 13:00: 00 Yes 5mg 5 mg, Oral, BID, First dose on Wed02/02/23 at 0800, Until Discontinu ed, Routine
Indicatio ns: Non-Valvul ar Atrial Fibrillati on [facility] atorvastati n (LIPITOR) tablet 40 mg 2022-04 02:00: 00 Yes 40mg 40 mg, Oral, QHS, First dose on Wed02/01/23 at 2100, Until Discontinu ed, Routine [facility] sotaloL (BETAPACE) tablet 80 mg 2022-04 01:00: 00 Yes 80mg 80 mg, Oral, Q12H, First dose on Wed02/01/23 at 2000, Until Discontinu ed, Routine
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
Duration of Therapy: 7 days [facility] magnesium sulfate in water 2 gram/50 mL (4 %) infusion 2 g 2022-04 14:15: 00 02-01 15:10 :00 No 2g 2 g, IV Piggyback, Administer over 60 Minutes, ONCE, 1 dose, On Wed02/01/23 at 0915, Routine [facility] spironolact one (ALDACTONE) tablet 25 mg 2022-04 14:00: 00 Yes 25mg 25 mg, Oral, DAILY, First dose on Wed02/01/23 at 0900, Until Discontinu ed, Routine [facility] KCL (KLOR-CON M20) tablet 40 mEq 2022-04 14:00: 00 Yes 40meq 40 mEq, Oral, DAILY, First dose on Wed02/01/23 at 0900, Until Discontinu ed, Routine [facility] KCL (KLOR-CON M20) tablet 40 mEq 2022-04 01:15: 00 02-01 01:29 :00 No 40meq 40 mEq, Oral, ONCE, 1 dose, On Wed01/31/23 at 2015, Routine [facility] vancomycin 1,250 mg in NaCl 0.9% (NS) [...] Tissue
Duration of Therapy: 7 days [facility] enoxaparin (LOVENOX) injection 40 mg 2022-04 22:00: 00 02-02 12:50 :30 No 40mg 40 mg, Subcutaneo us, DAILY, First dose on Wed01/31/23 at 1700, Until Discontinu ed, Routine [facility] gabapentin (NEURONTIN) capsule 100 mg 2022-04 19:00: 00 Yes 100mg 100 mg, Oral, TID, First dose on Wed01/31/23 at 1400, Until Discontinu ed, [facility] (BACTROBAN OINT[facility] 2 % skin ointment 2022-04 19:00: 00 02-01 19:29 :58 No [facility] methylPREDN ISolone sod succ (SOLU-MEDRO L (PF)) injection 40 mg 2022-04 19:00: 00 02-01 01:28 :00 No 40mg 40 mg, Intravenou s, Q8H, 2 doses, First dose on Wed01/31/23 at 1400, Last dose on Wed01/31/23 at 2200, 1 mL [facility] sulfur hexafluorid e microsphr (LUMASON) injection 5 mL 2022-04 15:30: 00 01-31 15:42 :00 No [id number] 5mL 5 mL, Intravenou s, ONCE, 1 dose, On Wed01/31/23 at 1042, Routine
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 : DAMIAN HANSEN [facility] furosemide (LASIX) injection 40 mg 2022-04 15:15: 00 Yes 40mg 40 mg, Slow IV Push, Q12H, First dose on Wed01/31/23 at 1015, Until Discontinu ed, Routine [facility] ipratropium -albuteroL (DUONEB) 0.5 mg-3 mg(2.5 mg base)/3 mL nebulizer solution 3 mL 2022-04 14:00: 00 Yes 3mL 3 mL, Inhalation , Q8H, First dose (after last modificati on) on Wed01/31/23 at 0900, Until Discontinu ed, Routine [facility] docusate (COLACE) capsule 100 mg 2022-04 14:00: 00 Yes 100mg 100 mg, Oral, DAILY, First dose on Wed01/31/23 at 0900, Until Discontinu ed, Routine [facility] metoprolol tartrate (LOPRESSOR) tablet 25 mg 2022-04 13:45: 00 02-01 21:32 :09 No 25mg 25 mg, Oral, BID, First dose on Wed01/31/23 at 0845, Until Discontinu ed, Routine [facility] HYDROcodone -acetaminop hen (NORCO 5) 5-325 mg tablet 1 tablet 2022-04 13:33: 35 Yes 1{tbl} 1 tablet, Oral, Q6HPRN, Starting on Wed01/31/23 at 0833, Until Discontinu ed, Routine, Pain (scale 7-10) [facility] vancomycin (VANCOCIN) 1,500 mg in NaCl 0.9% [...] Soft Tissue
Duration of Therapy: 7 days [facility] traMADoL (ULTRAM) tablet 50 mg 2022-04 13:17: 05 02-02 13:16 :05 No 50mg 50 mg, Oral, Q8HPRN, Starting on Wed01/31/23 at 0817, Until Tu02/02/23 at 0816, Routine, Pain (scale 4-6) [facility] ondansetron (ZOFRAN (PF)) injection 4 mg 2022-04 13:12: 20 Yes 4mg 4 mg, Slow IV Push, Q6HPRN, Starting on Wed01/31/23 at 0812, Until Discontinu ed, Routine, Nausea and Vomiting (N/V) [facility] acetaminoph en (TYLENOL) tablet 650 mg 2022-04 13:09: 25 Yes 650mg 650 mg, Oral, Q6HPRN, Starting on Wed01/31/23 at 0809, Until Discontinu ed, Routine, Pain (scale 1-3) [facility] traMADOL 50 mg tablet 12-19 00:00: 00 Yes 50mg Take 1 tablet by mouth every 4 (four) hours as needed for Pain (scale 7-10). [facility] Polyethylen e Glycol 3350 17 gram powder 12-19 00:00: 00 Yes 17g Take 1 Packet by mouth once daily as needed for Constipati on. [facility] docusate 100 mg capsule 12-19 00:00: 00 Yes 100mg Take 1 capsule by mouth daily. [facility] HYDROcodone -acetaminop hen 5-325 mg tablet 12-19 00:00: 00 Yes 1{tbl} Take 1 tablet by mouth every 6 (six) hours as needed for Pain (scale 7-10). [facility] Vital Signs Vital Name Observation Time Observation Value Comments Gogo silva Systolic blood pressure 2023-02-03 16:27:00 142 mm[Hg] [facility] Diastolic blood pressure 2023-02-03 16:27:00 71 mm[Hg] [facility] Heart rate 2023-02-03 16:27:00 69 /min [facility] Body temperature 2023-02-03 16:27:00 36 Renuka [facility] Respiratory rate 2023-02-03 16:27:00 16 /min [facility] Oxygen saturation in Arterial blood by Pulse oximetry 2023-02-03 16:27:00 100 /min [facility] Body weight 2023-02-03 08:18:00 [facility] BMI 2023-02-03 08:18:00 56.23 kg/m2 [facility] Body height 2023-01-31 10:46:00 154.9 cm [facility] Procedures Procedure Date / Time Performed Performing Clinician Source XR CHEST 1 VW 2023-02-03 15:40:17 Edwardo Good [facility] BASIC METABOLIC PANEL (NA, K, CL, CO2, GLUCOSE, BUN, CREATININE, CA) 2023-02-03 09:09:00 Jonathan Wyman [facility] N-TERMINAL PRO-BNP 2023-02-03 09:09:00 [facility] 2023-02-02 09:20:00 Jose Dixon [facility] BASIC METABOLIC PANEL (NA, K, CL, CO2, GLUCOSE, BUN, CREATININE, CA) 2023-02-02 09:20:00 [facility] 2023-02-02 09:20:00 [facility] 2023-02-02 09:20:00 Jose Dixon [facility] VANCOMYCIN TROUGH 2023-02-02 01:51:00 Jaswinder Paulino [facility] MRSA / MSSA SCREEN BY PCR, ALHAJI 2023-02-01 19:40:00 Jonathan Wymna [facility] XR CHEST 1 VW 2023-02-01 16:47:00 [facility] MAGNESIUM 2023-02-01 09:45:00 Jose Dixon [facility] BASIC METABOLIC PANEL (NA, K, CL, CO2, GLUCOSE, BUN, CREATININE, CA) 2023-02-01 09:45:00 [facility]FF 2023-02-01 09:45:00 Jose Dixon [facility] N-TERMINAL PRO-BNP 2023-02-01 09:45:00 Destiny [facility] CBC WITH DIFF 2023-01-31 19:50:00 Jose Dixon [facility] GLYCOSYLATED HEMOGLOBIN (A1C) 2023-01-31 19:50:00 Destiny [facility] D-DIMER 2023-01-31 19:49:00 Sarabjit Lenz [facility] PHOSPHORUS 2023-01-31 19:48:00 Sarabjit Lenz [facility] MAGNESIUM 2023-01-31 19:48:00 Jose Dixon [facility] TROPONIN I 2023-01-31 19:48:00 Jose Dixon [facility] THYROID STIMULATING HORMONE 2023-01-31 19:48:00 [facility] (NA, K, CL, CO2, GLUCOSE, BUN, CREATININE, CA) 2023-01-31 19:48:00 Jose Dixon [facility] N-TERMINAL PRO-BNP 2023-01-31 19:48:00 Jose Dixon [facility] TRANSTHORACIC ECHO (TTE) COMPLETE W/ CONTRAST 2023-01-31 15:54:00 Jose Dixon [facility] Encounters Start Date/Time End Date/Time Encounter Type Admission Type Attending [facility] Care Facility Care Department Encounter ID Source 2024-08-21 00:00:00 2024-08-21 15:40:01 Letter (Out) Gutierrez Romero [facility]) [id number] [id number] [facility] 2024-01-14 00:00:00 2024-01-14 10:25:10 Letter (Out) Gutierrez Romero [facility] ([facility]) [id number] [id number] [id number] [id number] [facility] 2023-02-08 09:15:00 2023-02-08 09:15:00 Outpatient SELINA ADAM [facility] [id number] [facility] 2023-02-04 00:00:00 2023-02-04 00:00:00 Transition of Care Hannah Coyle [id number] [id number] [id number] [facility] 2023-01-31 04:54:00 2023-02-03 15:00:00 Hospital Encounter Sarabjit Lenz Jelani [facility] [id number] [id number] [id number] [id number] [facility] 2023-01-31 04:54:00 2023-02-03 15:00:00 Inpatient U JOSE DIXON [facility] [id number] [facility] 2023-01-27 15:22:59 2023-01-27 15:22:59 Outpatient [facility] [id number] Darwin Castro 2023-01-21 09:42:18 2023-01-21 09:42:18 Outpatient [facility] [id number] Darwin Castro 2022-09-03 00:00:00 2022-09-03 00:00:00 Outpatient Prakash_S VFP VFP [id number] [facility] Results Test Description Test Time Test Comments Results Result Co mments Source [facility] [id number] 10:27:40* Test Item Value Reference Range Interpretation Comme nts NT-proBNP (test code = 66392-5) 273 pg/mL <=125 CLIFF (test code = CLIFF) Result Indeterminate-Consid er causes of NT-proBNP elevation other than Heart failure such as acute coronary syndrome, pulmonary embolism, pulmonary hypertension, sepsis, stroke, and renal dysfunction. Lab Interpretation (test code = 61280-9) [facility]23-10-31 10:23:15* Test Item Value Reference Range Interpretation Comme nts MAGNESIUM (test code = 2538831505) 1.9 mg/dL 1.7-2.4 Lab Interpretation (test cod e = 49769-3) [facility] [id number] 09:39:52* Test Item Value Reference Range Interpretation [...] result as normal/abnormal. MPV (test code = 73339-7) 9.6 fL 9.5-12.9 RDW-CV (test code = 788-0) 16.7 % 12.0-15.5 H RDW-SD (test code = 21956-3) 69.4 fL 39.0-49.9 H NRBC x10^3 (test code = 0666259900) See_Comment [Automated messa ge] The system which generated this result transmitted reference range: 10*3/?L. The reference range was not used to interpret this result as normal/abnormal. NRBC/100 WBC (test code = 4086405112) 0.0 See_Comment [Automated messa ge] The system which generated this result transmitted reference range: 0.0 - 10.0 /100 WBCs. The reference range was not used to interpret this result as normal/abnormal. IPF % (test code = 0116076336) Lab Interpretation (test code = 02188-9) Abnormal [facility] WITH [id number] 10:52:45* Test Item Value Reference Range Interpretation [...] 33.9 g/dL 31.6-35.1 RDW-SD (test code = 95657-6) 67.7 fL 39.0-49.9 H RDW-CV (test code = 788-0) 16.3 % 12.0-15.5 H PLT (test code = 777-3) 222 See_Comment [Automated messa ge] The system which generated this result transmitted reference range: 166 - 358 10*3/?L. The reference range was not used to interpret this result as normal/abnormal. MPV (test code = 22135-6) 10.1 fL 9.5-12.9 NRBC/100 WBC (test code = 0851768194) 0.0 See_Comment [Automated Fridge ssage] The system which generated this result transmitted reference range: 0.0 - 10.0 /100 WBCs. The reference range was not used to interpret this result as normal/abnormal. NRBC x10^3 (test code = 2978827740) See_Comment [Automated myhomemovea ge] The system which generated this result transmitted reference range: 10*3/?L. The reference range was not used to interpret this result as normal/abnormal. GRAN MAT (NEUT) % (test code = 770-8) 83.4 % IMM GRAN % (test code = 0184554994) 1.10 % LYMPH % (test code = 736-9) 10.5 % MONO % (test code = 5905-5) 5.0 % EOS % (test code = 713-8) 0.0 % BASO % (test code = 706-2) 0.0 % GRAN MAT x10^3(ANC) (test code = 1796823035) 3.02 10*3/uL 1.88-7.09 IMM GRAN x10^3 (test code = 0627593201) 0.04 10*3/uL 0.00-0.06 LYMPH x10^3 (test code = 731-0) 0.38 10*3/uL 1.32-3.29 L MONO x10^3 (test code = 742-7) 0.18 10*3/uL 0.33-0.92 L EOS x10^3 (test code = 711-2) 0.03-0.39 L BASO x10^3 (test code = 704-7) 0.01-0.07 Lab Interpretation (test code = 89048-0) [facility] [id number] 10:52:24* Test Item Value Reference Range Interpretation Comme nts NT-proBNP (test code = 47052-8) 365 pg/mL <=125 CLIFF (test code = CLIFF) Result Indeterminate-Consid er causes of NT-proBNP elevation other than Heart failure such as acute coronary syndrome, pulmonary embolism, pulmonary hypertension, sepsis, stroke, and renal dysfunction. Lab Interpretation (test code = 00197-1) Abnormal [facility] METABOLIC PANEL (NA, K, CL, CO2, GLUCOSE, BUN, CREATININE, CA)2023-02-01 10:37:02* Test Item Value Reference Range Interpretation Comme nts NA (test code = 6164212653) 134 mmol/L 135-145 L K (test code = 4788331377) 3.6 mmol/L 3.5-5.0 CL (test code = 4753342776) 91 mmol/L 98-108 L CO2 TOTAL (test code = 1471121511) 40 mmol/L 23-31 H AGAP (test code = 4779898967) 3 2-16 BUN (test code = 4442110394) 14 mg/dL 7-23 GLUCOSE (test code = 7792605500) 176 mg/dL 70-110 H CREATININE (test code = 8420662415) 0.44 mg/dL 0.50-1.04 L CALCIUM (test code = 4611112412) 8.7 mg/dL 8.6-10.6 eGFR (test code = 72080-0) 144.0 mL/min/1.73m2 CLIFF (test code = CLIFF) [...] imaging tests). Lab Interpretation (test code = 21631-8) [facility] 10:37:02* Test Item Value Reference Range Interpretation Comme nts MAGNESIUM (test code = 1311184699) 1.6 mg/dL 1.7-2.4 L Lab Interpretation (test cod e = 01998-4) [facility]2023-01-31 17:43:21* Test Item Value Reference Range Interpretation Comme nts Height (test code = 6101608235) 61 in Weight (test code = 0056724657) 317 lbs Systolic BP (test code = 7837585484) 161 mmHg Diastolic BP (test code = 0777438550) 80 mmHg Heart Rate (test code = 9070309026) 116 bpm BSA (test code = 2066230411) 2.30 m2 LVOT diameter (test code = 4020410217) 1.82 cm LVOT area (test code = 5454861288) 2.60 cm2 LA size (test code = 5925811847) 4.2 cm ACS (test code = 7285294485) 2.20 cm MV E-F slope (test code = 5143555067) 70.20 cm/s MV Peak A Blake (test code = 8880263896) 149.9 cm/s MV dec slope (test code = 4569598020) 3031.00 cm/s2 LVOT stroke volume (test code = 6575000734) 78.30 cm3 LVOT mn grad (test code = 5348025764) 5.8 mmHg LVOT peak VTI (test code = 6281438062) 30.1 cm LV V1 mean (test code = 8892820689) 111.00 cm/s Aortic valve mean velocity (test code = 1601325799) 155.2 cm/s Ao VTI (test code = 7230418005) 42.6 cm AV area by cont VTI (test code = 7336239853) 1.8 cm2 AV area peak blake (test code = 0436947803) 1.7 cm2 AV valve area (test code = 5450525749) 1.84 cm2 AV mean gradient (test code = 3844687615) 11.7 mmHg IVS (test code = 1308202110) 1.30 cm Interventricular Septum Diastolic Thickness by 2D (test code = 5748989) 1.30 cm EF(Teich) (test code = 0657306806) 56.90 % LVIDD (test code = 5058124277) 5.40 cm LVIDS (test code = 2097274891) 3.80 cm Left Ventricular End Systolic Volume by Teichholz Method (test code = 0549707) 61.0 mL Left Ventricular End Diastolic Volume by Teichholz Method (test code = 5770177) 141.6 mL LVPWD (test code = 1127902281) 1.44 cm FS (test code = 2232453529) 30 % MV Peak E Blake (test code = 1564291496) 118.4 cm/s E/A ratio (test code = 2050023965) 0.79 ratio LVOT peak blake (test code = 7354875294) 178.2 cm/s Ao peak blake (test code = 3586477881) 269.5 cm/s AV LVOT peak gradient (test code = 1906118126) 12.7 mmHg Ao max PG (test code = 5317077767) 29.10 mm[Hg] MV valve area p 1/2 method (test code = 2923951284) 19.10 cm2 MV P1/2t max blake (test code = 3499116571) 119.50 cm/s PV PEAK VELOCITY (test code = 1844412351) 89.6 cm/s PV peak gradient (test code = 6210840134) 3.2 mmHg Ao root diam (test code = 2208402845) 3.00 cm AV peak gradient (test code = 1543217115) 29.1 mmHg Aortic root (test code = 7813020967) 3.0 cm Ao root annulus (test code = 1139070710) 3.0 cm PW (test code = 4858294069) 1.44 cm 0.6-1.1 EF - 2D (test code = 96826453) 56.90 % Radiology Study observation (narrative) (test code = 45845-1) CLIFF (test code = CLIFF) ?Left?Ventricle: Left [...] mL of Lumason ultrasound enhancing agent [facility]. [facility] [id number] 07:47:00* Test Item Value Reference Range Interpretation [...] 68.5 >60 Unit of m easure: mL/min/1.73 d9Cpjmyltim Range:Healthy Adults >90 mL/min/1.73 m2 For Chronic Kidney Disease: Stage II Mild Decrease in GFR 60-90 Stage III Moderate Decrease in GFR 30-59 Stage IV Severe Decrease in GFR 15-29 Stage V Kidney Failure <15 CREATININE (test code = CREAT) 0.85 mg/dL 0.55-1.30 N CALCIUM (test code = CA) 8.8 mg/dL 8.2-10.1 N - XR PELVIS 1/2 [id number] 07:17:00Patient Name: LORAINE CHUN Unit No: [id number] EXAMS: CPT CODE: [id number] XR PELVIS 1/2 VIEWS 16069 INTRAOPERATIVE LEG LENGTH FILM COMMENT: COMPARISON: No prior exams available. In progress right hip replacement is noted. AP PORTABLE RIGHT HIP COMMENT: The patient is status post joint replacement which is articulating normally. at 0717 Reported and signed by: Kelby Fierro MD CC: Gordon Benitez Technologist: ARABELLA PARK RT(R) Transcribed D/ (0717) t.[email or web address] [facility] NAME: LORAINE CHUN [address] [facility] PHYS: Gordon Hayes : 1960 AGE: 57 SEX: F [place] [address] LOC: Y.322 A PHONE #: [phone] EXAM DATE: 07/14/2018 STATUS: ADM IN FAX #: [phone] RAD #: D/C DT PAGE 1 Signed Report Patient Name: LORAINE CHUN Unit No: [id number] EXAMS: CPT CODE: [id number] XR PELVIS 1/2 VIEWS 71825 (Continued) Orig Print D/T: S: 07/15/2018 (1027) [facility] NAME: LORAINE CHUN [address] [place] [address] PHYS: Gordon Hayes : 1960 AGE: 57 SEX: F [place] [address] LOC: Y.322 A PHONE #: [phone] EXAM DATE: 07/14/2018 STATUS: ADM IN FAX #: [phone] RAD #: D/C DT PAGE 2 Signed Report- XR PELVIS 1/2 [id number] 07:17:00 Patient Name: LORAINE CHUN Unit No: [id number] EXAMS: CPT CODE: [id number] XR PELVIS 1/2 VIEWS 37228 INTRAOPERATIVE LEG LENGTH FILM COMMENT: COMPARISON: No prior exams available. In progress righthip replacement is noted. AP PORTABLE RIGHT HIP COMMENT: The patient is status post joint replacement which is articulating normally. at 0717 Reported and signed by: Kelby Fierro MD CC: Gordon Benitez Technologist: ARABELLA PARK RT(R) Transcribed D/ (0717) Justin [facility] NAME: LORAINE CHUN [address] [place] [address] PHYS: Gordon Hayes : 1960 AGE: 57 SEX: F [place] [address] LOC: Y.322 A PHONE #: [phone] EXAM DATE: 07/14/2018 STATUS: ADM IN FAX #: [phone] RAD #: D/C DT PAGE 1 Signed Report Patient Name: LORAINE CHUN Unit No: [id number] EXAMS: CPT CODE: [id number] XR PELVIS 1/2 VIEWS 90699 (Continued) Orig Print D/T: S: 07/15/2018 (1027) [facility] NAME: LORAINE CHUN [address] [facility] PHYS: GOYRO - EliGordon : 1960 AGE: 57 SEX: F [place], [place] [address] LOC: Y.322A PHONE #: [phone] EXAM DATE: 07/14/2018 STATUS: ADM IN FAX #: [phone] RAD #: D/C DT PAGE2 Signed ReportHGB [id number] 05:53:00* Test Item Value Reference Range Interpretation Comme nts HEMOGLOBIN (test code = HGB) 13.3 g/dL 12-16 N HEMATOCRIT (test code = HCT) 39.8 % 37-47 N AB HIV 1 20:55:00* Test Item Value Reference Range Interpretation Comme nts AB HIV 1 2 (test code = YBC79XA) NONREACTIVE NONREACTIVE Done by Siemens Centaur 4th Gen HIV Ag/Ab Combo Screen AB HIV 20:55:00* Test Item Value Reference Range Interpretation Comme nts AB HIV 1 (test code = HIV1AB) NONREACTIVE NONREACTIVE DONE AT: [facility] [address] [place], [place] [address]Ovud by Siemens Centaur 4th Gen HIV Ag/Ab Combo Screen COMPREHENSIVE METABOLIC [id number] 18:08:00* Test Item Value Reference Range Interpretation [...] 88.6 >60 Unit of m easure: mL/min/1.73 [id number] Range:Healthy Adults >90 mL/min/1.73 m2 For Chronic [...] = ALKP) 68 U/L 46-116 N PROTHROMBIN [id number] 17:53:00* Test Item Value Reference Range Interpretation [...] Patient is on Heparin Drip? NOTHROMBOPLASTIN TIME [id number] 17:53:00* Test Item Value Reference Range Interpretation Comme nts PTT ACTIVATED (test code = APTT) 31.2 secs 24.9-37.0 N IS PATIENT ON ANTICOAGULANTS ? YLIST ANTICOAGULANT/ANTI PLT MEDICATION : AspirinHas Lab been notified if Patient is on Heparin Drip? NOURINALYSIS [id number] 17:40:00* Test Item Value Reference Range Interpretation [...] BACU) 1+ /HPF NONE A CBC W/AUTO [id number] 17:30:00* Test Item Value Reference Range Interpretation [...] Notes Date/Time Note Provider Source 2018-07-15 09:43:00 [facility] Clinical Note REPORT#:[id number] REPORT STATUS: Signed DATE:07/15/18 TIME: 942 PATIENT: LORAINE CHUN UNIT #: [id number] ROOM/BED: [address] : [birth year] AGE: 57 SEX: F ATTEND: Gordon Benitez MD ADM AUTHOR: Anshul Villarreal MD * ALL edits or amendments must be made on the electronic/computer document * Clinical Note Note: [facility] Anshul Jason M.D. (cell text [phone]) Assessment/Plan 1.) Anemia of acute blood loss- [...] 47 %) 39.8 Anshul Jason M.D. at 1037 RPT #:[id number] END OF REPORT [facility] 2018-07-15 08:06:00 [facility] ([facility] Clinical Note REPORT#:[id number] REPORT STATUS: Signed DATE:07/15/18 TIME: 805 PATIENT: LORAINE CHUN UNIT #: [id number] ROOM/BED: [address] : [birth year] AGE: 57 SEX: F [...] patient may shower Discharge planning at 0806 RPT #:[id number] [facility] 2018-07-15 08:05:00 [facility] Discharge Summary REPORT#:[id number] REPORT STATUS: Signed DATE:07/15/18 TIME: 0805 PATIENT: LORAINE CHUN UNIT #: [id number] ROOM/BED: [address] : 56 AGE: 57 SEX: F [...] Qty = 60 No Refills at 0806 [facility] #:[id number] END OF REPORT [facility] 2018-07-14 17:58:00 [facility] ([facility]) Clinical Note REPORT#:[id number] REPORT STATUS: Signed DATE:07/14/18 TIME: 1758 PATIENT: LORAINE CHUN UNIT #: [id number] ROOM/BED: Y.322-A : 56 AGE: 57 SEX: F ATTEND: Gordon Benitez MD ADM AUTHOR: Anshul Villarreal MD * ALL edits or amendments must be made on the electronic/computer document * Clinical Note Note: [facility] Anshul Jason MD (cell text [phone]) Internal Medicine Consult at request of : [...] Anshul Jason M.D. Thanks! at 2011 RPT #:[id number] END OF REPORT [facility] 2018-07-14 15:05:00 [facility] Operative Note - Full REPORT#:[id number] REPORT STATUS: Signed DATE:07/14/18 TIME: 1505 PATIENT: LORAINE CHUN UNIT #: [id number] ROOM/BED: [place] [address] : [birth year] AGE: 57 SEX: F ATTEND: [...] the leg was placed on a metal correspondence coordinator slight abduction and internal rotation. The capsule, [...] longer than a typical procedure INDICATIONS FOR END USER SUPPORT SPECIALIST The presence of a skilled surgical technologist was medically necessary to aid for the [...] the procedure and not possible without an traffic assistant. In addition having an traffic assistant shortens operative times which decreases expenses and improves outcomes. I am not part of any residency or fellowship training programs and therefore require the help of the traffic assistant listed above for this surgery. IMPLANTS Depuy 52 mm [place] cup, 36+4 liner, 3 hi trilock, 36-2 mm METAL head Primary Surgeon: ELI Mathematics Faculty Member(s): CAMELIA MERRILL Anesthesia: TIVA Operative findings: OA Complications: none Estimated blood loss in ml's: 350 Specimens removed/altered: none Implant(s): DEPUY at 1507 RPT #:[id number] END OF REPORT [facility] 2018-07-01 16:01:00 [id number] [place] [address] PATIENT NAME: LORAINE CHUN ADMIT DATE: ACCOUNT NO: [id number] ROOM NO: AGE: 57 REPORT TYPE: ELECTROCARDIOGRAM SEX: F ADMITTING PHYSICIAN:Gordon Benitez MD ATTENDING PHYSICIAN:Gordon Benitez MD Order: [id number] Test Reason : PREOP CLEARANCE, AGE OVER [...] ECGs available Confirmed by DYLON STOCK MD ([id number]) on 07/07/2018 12:29:32 PM Referred By: Gordon Benitez Confirmed by:DYLON STOCK MD at 2986 PATIENT NAME: [facility]UN [facility]"
--- NOTE | 2024-08-25 13:29 | RAD REPORT ---
EXAMINATION: ONE VIEW CHEST XR CLINICAL INDICATION: COUGH TECHNIQUE: Frontal chest projection is submitted. Examination is limited by patient positioning and t echnique. COMPARISON: 05/18/2024 FINDINGS: Mild interstitial pulmonary edema. The heart is moderately enlarged. No displaced fractures identifie d. IMPRESSION: Mild CHF versus volume overload.
--- NOTE | 2024-08-25 13:44 | RAD REPORT ---
EXAM: CT brain without contrast HISTORY: TRAUMA COMPARISON: None TECHNIQUE: Multiple contiguous axial images were obtained and a CT of the brain without contrast. Sag ittal and coronal reformats were performed. One or more of the following dose reduction techniques were used: Automated exposure control, adjust ment of the mA and/or kV according to patient size, and/or iterative reconstruction. FINDINGS: No evidence of hydrocephalus, intracranial hemorrhage, or extra-axial fluid collection. The brain is normal in morphology. No evidence of midline shift or areas of brain edema. The calvarium is intact. The visualized paranasal sinuses and mastoid air cells are essentially clear . EXAM: CT of the cervical spine without contrast HISTORY: Neck pain, injury TRAUMA TECHNIQUE: Multiple contiguous axial images were obtained in a CT of the cervical spine without contr ast. Sagittal and coronal reformats were performed. FINDINGS: 3 mm degenerative anterolisthesis of C4 on 5. No evidence of acute fracture or subluxation. . Moderate lower cervical degenerative spondylosis. No prevertebral soft tissue swelling is seen. The lung apices are unremarkable. COMBINED IMPRESSION: No evidence of acute intracranial abnormality. No evidence of acute osseous abnormality of the cervical spine. Degenerative anterolisthesis C4 on 5 of 3 mm. Moderate lower cervical spondylosis.
--- NOTE | 2024-08-25 13:48 | RAD REPORT ---
EXAM: CT CHEST, ABDOMEN AND PELVIS WITHOUT CONTRAST CLINICAL INDICATION: TRAUMA TECHNIQUE: CT chest, abdomen and pelvis was performed without contrast, as per department protocol. A xial, sagittal and coronal reconstructions were obtained. One or more of the following dose reduction techniques were used: Automated exposure control, adjustment of the mA and/or kV according to patient size, and/or iterative reconstruction. Unless otherwise specified, incidental findings do not require dedicated imaging follow-up. Examination is limited by the lack of intravenous contrast material. COMPARISON: 11/17/2022 FINDINGS: LUNGS: No evidence of airspace or interstitial process. No nodules. PLEURA: No pleural effusion. No pneumothorax. MEDIASTINUM AND LYMPH NODES: No mediastinal mass or fluid collection. Normal size mediastinal, hilar, and axillary lymph nodes. OSSEOUS STRUCTURES AND CHEST WALL: Intact. LIVER: Normal in size and contour. No focal lesion or biliary dilatation. Grossly unremarkable gallbl adder. PANCREAS: No mass, ductal dilation, or taqueria-pancreatic fluid. SPLEEN: Normal size. No focal lesion. ADRENALS: Normal; no mass. KIDNEYS: Normal size and contour. No hydronephrosis. URINARY BLADDER: Normal contour. GASTROINTESTINAL TRACT: Moderate stool is retained in the rectum. Presacral fluid is present measurin g up to 2.2 cm. Sigmoid diverticulosis coli without diverticulitis. Along the midline inferior ventral hernia containing large bowel. APPENDIX: Normal appendix. LYMPH NODES: No lymphadenopathy. MUSCULOSKELETAL: Right total hip arthroplasty. OTHER: Moderate chronic L1 compression fracture, unchanged. IMPRESSION: No acute abnormalities seen in the chest, abdomen or pelvis. Large ventral hernia containing large bowel loops without obstruction.
[2024-08-25] MEDS ORDERED: FAMOTIDINE 20 MG/2 ML VIAL IV ONE (13:56)
[2024-08-25] MEDS ORDERED: NA CHLORIDE 0.9% 3,000 ML ONE (13:56)
[2024-08-25] MEDS ORDERED: NA CHLORIDE 0.9% 100 ML ONE (13:56)
[2024-08-25] MEDS ORDERED: PIPERACIL/TAZO 3.375 GM VIAL IV ONE (13:57)
[2024-08-25 14:02] LABS: Absolute Lymphocytes (CBC) 0.7 K/uL (0.7-4.9); Hematocrit 34.2 % (36.0-45.0); Hemoglobin 11.3 g/dL (12.0-15.0); MCH 31.4 pg (27.0-35.0); MCHC 33.1 g/dL (32.0-36.0); MCV 94.8 fL (80-100); MPV 7.1 fL (7.6-11.3); Nucleated RBC Absolute Count 0.0 (0-0); Nucleated Red Blood Cells % 0.1 % (0-0); RBC Red Blood Cell Count 3.60 M/uL (3.86-4.86); White Blood Count 15.90 thou/uL (4.3-10.9)
[2024-08-25 14:07] LABS: Sqamous Epithelial <5 /HPF (None Seen); Urine Crystals Unidentified Few /HPF (None Seen); Urine Culture Reflex Order NOT NEEDED; Urine Microscopic Reflex YN ORDER UMIC
[2024-08-25 14:09] LABS: PT Prothrombin Time 12.5 SECONDS (10-13.0); Protime INR 1.1
[2024-08-25 14:25] LABS: AST/SGOT 13 U/L (15-37); Albumin 2.7 g/dL (3.4-5.0); Albumin/Globulin Ratio 0.6 (1.1-1.8); Alkaline Phosphatase 111 U/L (45-117); Anion Gap 13.9 mEq/L (5.0-15.0); BUN Blood Urea Nitrogen 47 mg/dL (7-18); Globulin 4.4 g/dL (2.3-3.5); Glucose Level 108 mg/dL (74-106); Lipase 454 U/L (13-75); Magnesium 2.4 mg/dL (1.6-2.4); NT PRO-BNP 3646 pg/mL (<125); Potassium 5.9 mEq/L (3.5-5.1)
[2024-08-25 14:27] LABS: ALT/SGPT < 14 U/L (13-56); Bilirubin Indirect, Calculated 0.2 mg/dL (0.2-0.8)
[2024-08-25 14:29] LABS: Troponin High Sensitivity 122.8 pg/mL (<58.9)
[2024-08-25] MEDS ORDERED: IPRATROPIUM BROM 0.5MG/2.5ML ONE (15:01)
[2024-08-25] MEDS ORDERED: ALBUTEROL 2.5 MG/3 ML NEB SOL ONE (15:01)
[2024-08-25] MEDS ORDERED: FUROSEMIDE 20 MG/ 2ML VIAL ONE (15:01)
[2024-08-25] MEDS ORDERED: INSULIN REGULAR (HUMAN) 100 UNIT/ML ONE (15:02)
[2024-08-25] MEDS ORDERED: SOD POLYSTYREN SUL 15 GM/60 ML UCUP ONE (15:02)
[2024-08-25] MEDS ORDERED: CALCIUM GLUCONATE 1 GM IVPB 1 GM/50 ML BAG IV ONE (15:02)
[2024-08-25] MEDS ORDERED: D50W 25 GM/50 ML SYRINGE IV ONE (15:03)
--- NOTE | 2024-08-25 15:27 | ER ---
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 Pt C/O pain to right shoulder, right hip, NKECHI Legs weeping. Pressure ulcers to buttocks. Coronavirus screen: At this time, the client does not indicate any symptoms associated with coronavirus-19. Ebola Screen: No symptoms or risks identified at this time. Initial Sepsis Screen: Does the patient meet any 2 criteria? No. Patient's initial sepsis screen is negative. Does the patient have a suspected source of infection? No. Patient's initial sepsis screen is negative. Risk Assessment: Do you want to hurt yourself or someone else? Patient reports no desire to harm self or others. Onset of symptoms was August 25, 2024. 12:08 Method Of Arrival: EMS: [facility] ld1 12:08 Acuity: DANK 3 ld1 Triage Assessment: 12:10 General: Appears in no apparent distress. uncomfortable, Behavior is calm, cooperative, ld1 appropriate for age. Pain: Complains of pain in right hip, anterior aspect of right shoulder, right leg and left leg Pain does not radiate. Pain currently is 8 out of 10 on a pain scale. Quality of pain is described as throbbing, Pain began suddenly, Is continuous. EENT: No signs and/or symptoms were reported regarding the EENT system. Neuro: Level of Consciousness is awake, alert, obeys commands, Oriented to person, place, time, situation. Cardiovascular: Capillary refill < 3 seconds Patient's skin is warm and dry. Rhythm is sinus rhythm. Respiratory: Airway is patent Respiratory effort is even, unlabored. GI: Abdomen is round obese. : No signs and/or symptoms were reported regarding the genitourinary system. Derm: Wound noted left gluteus marlon, right gluteus marlon, left gluteal fold and right gluteal fold Reports pain that is 8 out of 10 on a pain scale. Musculoskeletal: No signs and/or symptoms reported regarding the musculoskeletal system. Historical: - Allergies: 12:10 No Known Allergies; ld1 - PMHx: 12:10 Atrial fibrillation; CHF; COPD; diabetes mellitus; Home O2 via 2.5L NC; Hypertensive ld1 disorder; lymphedema; - PSHx: 12:10 Ankle; section; hip; L ankle; R hip; ld1 - Immunization history:: Adult Immunizations up to date. - Infectious Disease History:: Denies. - Social history:: Smoking status: Patient denies any tobacco usage or history of. - Family history:: not pertinent. Screenin:13 [facility] ED Fall Risk Assessment (Adult) History of falling in the last 3 months, ld1 including since admission Yes- fall prone (multiple falls) (3 pts) Confusion or Disorientation No (0 pts) Intoxicated or Sedated No (0 pts) Impaired Gait Yes (1 pt) Mobility Assist Device Used Yes (1 pt) Altered Elimination Yes (1 pt) Score/Fall Risk Level 3 or more points = High Risk Oriented to surroundings, Maintained a safe environment, Educated pt \\T\\ family on fall prevention, incl call for assistance when getting out of bed, Hourly rounding (assess needs \\T\\ fall precautionary measures) done, Used ambulatory aids as needed (educated on \\T\\ assisted with). Abuse screen: Denies threats or abuse. Denies injuries from another. Nutritional screening: No deficits noted. Tuberculosis screening: No symptoms or risk factors identified. Assessment: 12:13 Reassessment: See triage assessment. Received patient soiled in urine and feces - NKECHI ld1 stage 2 pressure ulcers to buttocks. Pt reports being at home alone with "daughter who helps out", reports having a walker to help her ambulate at home. Pt has purewick at home - states "I do not walk a lot." Cleaned patient - placed in clean brief with purewick applied, gown, on monitor at this time. 21:00 Reassessment: ATTEMPTED TO GIVE REPORT. NURSE STATES " WE WILL CALLED BACK WHEN WE ARE ha1 READY TO TAKE REPORT, WE ARE MOVING SOME PATIENTS RIGHT NOW. 21:42 General: Report given to DerekAnna lalo Vital Signs: 12:08 BP 103 / 85; Pulse 69; Resp 18; Temp 97.1(TE); Pulse Ox 100% on 4 lpm NC; Weight 120.2 ld1 kg; Height 5 ft. 2 in. ; Pain 8/10; 14:14 BP 105 / 59; Pulse 72; Resp 17; Pulse Ox 100% on R/A; ld1 14:45 BP 118 / 58; Pulse 71; Resp 14; Pulse Ox 100% on Nebulizer Mask; ld1 15:31 BP 96 / 51; Pulse 83; Resp 17; Pulse Ox 96% on 4 lpm NC; ld1 16:15 BP 102 / 63; Pulse 72; Resp 14; Pulse Ox 100% on R/A; ld1 17:00 BP 110 / 67; Pulse 77; Resp 15; Pulse Ox 96% ; ld1 17:46 BP 98 / 67; Pulse 78; Resp 16; Pulse Ox 94% on R/A; ld1 18:30 BP 104 / 62; Pulse 79; Resp 18; Pulse Ox 100% on R/A; ld1 12:08 Body Mass Index 48.47 (120.20 kg, 157.48 cm) ld1 12:08 Pain Scale: Adult ld1 ED Course: 12:02 Patient arrived in ED. eb 12:03 Boyd Larose MD is Attending Physician. nirali 12:07 Kacey Vincent, RN is Primary Nurse. ld1 12:10 Triage completed. ld1 12:10 Arm band placed on right wrist. ld1 12:13 Patient has correct armband on for positive identification. Placed in gown. Bed in low ld1 position. Call light in reach. Side rails up X2. laboratory monitor on. Pulse ox on. NIBP on. Door closed. Noise minimized. Warm blanket given. Cleaned of incontinence. Linen changed. 12:13 Straight cath inserted, using sterile technique, 16 Fr. Specimen obtained. Returned ld1 clear yellow urine. Patient tolerated well. 13:25 XRAY Chest (1 view) In Process Unspecified. EDMS 13:32 Chest Abd Pelvis Wo Con In Process Unspecified. EDMS 13:32 Head C Spine Mpr Wo Con In Process Unspecified. EDMS 13:50 Initial lab(s) drawn, by me, sent to lab. First set of blood cultures drawn by me. bc6 13:57 Inserted saline lock: 20 gauge in left antecubital area, using aseptic technique. Blood bc6 collected. Flushed with 10 mL NS. 15:20 Jake Simms MD is Hospitalizing Provider. nirali 16:01 No provider procedures requiring assistance completed. ld1 16:02 US Extremity Venous W Compression Nkechi In Process Unspecified. EDMS 16:03 Sorenson cath inserted, using sterile technique, 16 Fr., returned clear yellow urine. ld1 Patient tolerated well. 22:01 Provided Education on: admission. cp4 22:01 Patient admitted, IV remains in place. cp4 Administered Medications: 14:20 Drug: Famotidine IVP 20 mg IVP once; dilute with 10 mL 0.9% NaCl; give over 2 minutes ld1 Route: IVP; Site: left antecubital; 15:35 Follow up: Response: No adverse reaction ld1 14:20 Drug: Piperacillin-Tazobactam IVPB 3.375 grams IVPB once over 60 mins; (mix in NS 100 ld1 mL) Route: IVPB; Infused Over: 60 mins; Site: left antecubital; 15:35 Follow up: Response: No adverse reaction; IV Status: Completed infusion; IV Intake: ld1 100ml 14:30 Drug: NS 0.9% IV 500 ml IV at bolus once; to be given as a bolus over 30 minutes Route: ld1 IV; Rate: bolus; Site: left antecubital; 15:19 Drug: Insulin Regular Human IVP 8 units IVP once; after d50 {Co-Signature: ak1 ld1 (Christnia Almendarez RN).} Route: IVP; Site: left antecubital; 15:34 Follow up: Response: No adverse reaction ld1 15:19 Drug: Albuterol Inhalation 7.5 mg Inhalation once Route: Inhalation; ld1 15:19 Drug: Ipratropium Inhalation Aerosol 0.5 mg Inhalation once Route: Inhalation; ld1 15:22 Drug: Kayexalate PO 45 grams PO once Route: PO; ld1 15:35 Follow up: Response: No adverse reaction ld1 15:22 Drug: Furosemide IVP 20 mg IVP once; give over 2 minutes Route: IVP; Site: left ld1 antecubital; 15:34 Follow up: Response: No adverse reaction ld1 15:22 Drug: Calcium Gluconate IVPB 1 grams IVPB once over 60 mins; (mix in NS 100 mL) Route: ld1 IVPB; Infused Over: 60 mins; Site: left antecubital; 15:22 Drug: D50W IVP 50 ml IVP once; (1 amp) Route: IVP; Site: left antecubital; ld1 15:34 Follow up: Urine output 50 ml; Response: No adverse reaction ld1 15:36 Not Given (Physician Discretion): ns 0.9% (30 ml/kg) 30 ml/kg IV at bolus once; Sepsis ld1 Protocol; to be given as a bolus over 90 minutes Medication: 16:03 VIS not applicable for this client. ld1 Intake: 15:35 IV: 100ml; Total: 100ml. ld1 Output: 15:34 Urine: 50ml; Total: 50ml. ld1 Outcome: 15:26 Decision to Hospitalize by Provider. nirali 22:01 Admitted to ICU accompanied by nurse, via stretcher, with oxygen, on monitor, with cp4 chart, 22:01 Condition: stable 22:01 Instructed on the need for admit, 22:02 Patient left the ED. cp4 Signatures: Dispatcher [employer] Boyd Mccullough MD MD cha Botello, Elizabeth eb Sims, Lauren, RN RN ld1 Mila Simmons RN RN ha1 Agustina Linares Christina cp4 Grace Noriega RN RN [id number] Christina Almendarez RN me1 Corrections: (The following items were deleted from the chart) 12:11 12:10 PMHx: "pre diabetic"; ld1 ld1 12:11 12:10 PMHx: "pre diabetes" (R hip); ld1 ld1 15:36 14:20 NS 0.9% IV (30 ml/kg) 3606 mL IV at bolus in left antecubital ld1 ld1 16:03 14:45 BP 96 / 51; Pulse 83bpm; Resp 17bpm; Pulse Ox 96% 4 lpm Nasal Cannula; ld1 ld1
--- NOTE | 2024-08-25 15:27 | EDPHYS ---
Physician Documentation [facility] Name: Carla Harris Age: 63 yrs Sex: Female : 1960 Arrival Date: 08/25/2024 Time: 11:47 Bed 15 Private MD: ED Physician Boyd Larose HPI: 08/25 15:16 This 63 yrs old Female presents to ER via EMS with complaints of Fall Injury, nirali Hip Pain - Right side, Shoulder Pain - right, Leg Swelling, Wound Check - - NKECHI leg lymphadema. Historical: - Allergies: 12:10 No Known Allergies; ld1 - PMHx: 12:10 Atrial fibrillation; CHF; COPD; diabetes mellitus; Home O2 via 2.5L NC; Hypertensive ld1 disorder; lymphedema; - PSHx: 12:10 Ankle; section; hip; L ankle; R hip; ld1 - Immunization history:: Adult Immunizations up to date. - Infectious Disease History:: Denies. - Social history:: Smoking status: Patient denies any tobacco usage or history of. - Family history:: not pertinent. ROS: 15:17 Constitutional: Negative for fever, chills, and weight loss, Eyes: Negative for injury, nirali pain, redness, and discharge, ENT: Negative for injury, pain, and discharge, Neck: Negative for injury, pain, and swelling, 15:17 Respiratory: Negative for shortness of breath, cough, wheezing, and pleuritic chest nirali pain, Abdomen/GI: Negative for abdominal pain, nausea, vomiting, diarrhea, and constipation, Back: Negative for injury and pain, : Negative for injury, bleeding, discharge, and swelling, MS/Extremity: Negative for injury and deformity, Psych: Negative for depression, anxiety, suicide ideation, homicidal ideation, and hallucinations, Allergy/Immunology: Negative for hives, rash, and allergies, Endocrine: Negative for neck swelling, polydipsia, polyuria, polyphagia, and marked weight changes, Hematologic/Lymphatic: Negative for swollen nodes, abnormal bleeding, and unusual bruising, 15:17 Cardiovascular: Positive for palpitations, 15:17 Respiratory: Positive for cough, shortness of breath, 15:17 Abdomen/GI: Positive for abdominal distension, 15:17 MS/extremity: Positive for swelling, tenderness, of the right leg and left leg, 15:17 Neuro: Positive for altered mental status, weakness, Exam: 15:17 Constitutional: This is a well developed, well nourished patient who is awake, alert, nirali and in no acute distress. Head/Face: Normocephalic, atraumatic. Eyes: Pupils equal round and reactive to light, extra-ocular motions intact. Lids and lashes normal. Conjunctiva and sclera are non-icteric and not injected. Cornea within normal limits. Periorbital areas with no swelling, redness, or edema. ENT: Nares patent. No nasal discharge, no septal abnormalities noted. Tympanic membranes are normal and external auditory canals are clear. Oropharynx with no redness, swelling, or masses, exudates, or evidence of obstruction, uvula midline. Mucous membranes moist. Neck: Trachea midline, no thyromegaly or masses palpated, and no cervical lymphadenopathy. Supple, full range of motion without nuchal rigidity, or vertebral point tenderness. No Meningismus. Chest/axilla: Normal chest wall appearance and motion. Nontender with no deformity. No lesions are appreciated. Cardiovascular: Regular rate and rhythm with a normal S1 and S2. No gallops, murmurs, or rubs. Normal PMI, no JVD. No pulse deficits. Back: No spinal tenderness. No costovertebral tenderness. Full range of motion. Female : Normal external genitalia. MS/ Extremity: Pulses equal, no cyanosis. Neurovascular intact. Full, normal range of motion., bilateral aka Psych: Awake, alert, with orientation to person, place and time. Behavior, mood, and affect are within normal limits. 15:17 ECG was reviewed by the Attending Physician. 15:17 Respiratory: the patient does not display signs of respiratory distress, Respirations: normal, Breath sounds: decreased breath sounds, that are moderate, are scattered, Respiratory rate: 18 15:17 Musculoskeletal/extremity: ROM: limited active range of motion, limited passive range of motion, Circulation is intact in all extremities. Sensation intact. Weight bearing: is unable to bear weight, DVT Exam: negative Homans' sign noted on exam, no appreciated bluish discoloration, pain, swelling, tenderness, erythema, increased warmth, Vital Signs: 12:08 BP 103 / 85; Pulse 69; Resp 18; Temp 97.1(TE); Pulse Ox 100% on 4 lpm NC; Weight 120.2 ld1 kg; Height 5 ft. 2 in. ; Pain 8/10; 14:14 BP 105 / 59; Pulse 72; Resp 17; Pulse Ox 100% on R/A; ld1 14:45 BP 118 / 58; Pulse 71; Resp 14; Pulse Ox 100% on Nebulizer Mask; ld1 15:31 BP 96 / 51; Pulse 83; Resp 17; Pulse Ox 96% on 4 lpm NC; ld1 16:15 BP 102 / 63; Pulse 72; Resp 14; Pulse Ox 100% on R/A; ld1 17:00 BP 110 / 67; Pulse 77; Resp 15; Pulse Ox 96% ; ld1 17:46 BP 98 / 67; Pulse 78; Resp 16; Pulse Ox 94% on R/A; ld1 18:30 BP 104 / 62; Pulse 79; Resp 18; Pulse Ox 100% on R/A; ld1 12:08 Body Mass Index 48.47 (120.20 kg, 157.48 cm) ld1 12:08 Pain Scale: Adult ld1 MDM: 12:03 Medical Screening Exam initiated [facility] 08/25 12:45 Order name: Basic Metabolic Panel; Complete Time: 14:42 [facility] 08/25 12:45 Order name: CBC with Diff; Complete Time: 16:29 [facility] 08/25 12:45 Order name: LFT's; Complete Time: 14:42 [facility] 08/25 12:45 Order name: Magnesium; Complete Time: 14:42 [facility] 08/25 12:45 Order name: NT PRO-BNP; Complete Time: 14:42 [facility] 08/25 12:45 Order name: PT-INR; Complete Time: 14:14 [facility] 08/25 12:45 Order name: Troponin HS; Complete Time: 14:42 [facility] 08/25 12:45 Order name: Lipase; Complete Time: 14:42 [facility] 08/25 12:45 Order name: UA Rfx Richard Cult if indicated; Complete Time: 14:14 [facility] 08/25 12:45 Order name: Blood Culture Adult (2) [facility] 08/25 12:45 Order name: Lactate w/ 2H reflex if indic.; Complete Time: 14:42 [facility] 08/25 14:12 Order name: Manual Differential; Complete Time: 16:29 EDMS 08/25 14:45 Order name: Urine Osmolality; Complete Time: 16:07 [facility] 08/25 14:45 Order name: Osmolality, Serum; Complete Time: 16:29 [facility] 08/25 14:45 Order name: Urine Sodium Random; Complete Time: 16:07 [facility] 08/25 15:13 Order name: TSH; Complete Time: 17:02 [facility] 08/25 15:17 Order name: ABG [facility] 08/25 15:46 Order name: BMP la1 08/25 16:54 Order name: Basic Metabolic Panel EDMS 08/25 16:54 Order name: Basic Metabolic Panel EDMS 08/25 16:54 Order name: Basic Metabolic Panel EDMS 08/25 16:54 Order name: Basic Metabolic Panel EDMS 08/25 16:54 Order name: CBC with Automated Diff EDMS 08/25 16:54 Order name: CBC with Automated Diff EDMS 08/25 16:54 Order name: CBC with Automated Diff EDMS 08/25 16:54 Order name: CBC with Automated Diff EDMS 08/25 16:54 Order name: CBC with Automated Diff EDMS 08/25 16:54 Order name: Magnesium EDMS 08/25 16:54 Order name: Magnesium EDMS 08/25 16:54 Order name: Magnesium EDMS 08/25 16:54 Order name: Magnesium EDMS 08/25 16:54 Order name: Troponin High Sensitivity EDMS 08/25 16:54 Order name: Troponin High Sensitivity EDMS 08/25 16:54 Order name: Troponin High Sensitivity EDMS 08/25 17:40 Order name: Vancomycin Level Trough EDMS 08/25 12:45 Order name: XRAY Chest (1 view); Complete Time: 14:05 [facility] 08/25 13:14 Order name: Chest Abd Pelvis Wo Con; Complete Time: 14:05 EDMN 08/25 13:15 Order name: Head C Spine Mpr Wo Con; Complete Time: 14:05 EDMS 08/25 15:17 Order name: US Extremity Venous W Compression Nkechi; Complete Time: 16:29 [facility] 08/25 12:45 Order name: EKG; Complete Time: 12:46 [facility] 08/25 16:54 Order name: CONS [facility] Cons EDMS 08/25 12:45 Order name: Cardiac monitoring; Complete Time: 14:13 [facility] 08/25 12:45 Order name: EKG - Nurse/Tech; Complete Time: 14:13 [facility] 08/25 12:45 Order name: IV Saline Lock; Complete Time: 14: [facility] 08/25 12:45 Order name: Labs collected and sent; Complete Time: 14: [facility] 08/25 12:45 Order name: O2 Per Protocol; Complete Time: : [facility] 08/25 12:45 Order name: O2 Sat Monitoring; Complete Time: 13: [facility] 08/25 12:45 Order name: Sorenson Leg Bag; Complete Time: : [facility] 08/25 12:45 Order name: Sorenson; Complete Time: : [facility] 08/25 12:45 Order name: IV Saline Lock - Large Bore; Complete Time: 13:45 [facility] EC: Rate is 71 beats/min. Rhythm is regular. QRS [place] is Normal. CT interval is normal. QRS nirali interval is normal. QT interval is normal. No Q waves. T waves are Peaked. No ST changes noted. Clinical impression: NSR w/ Non-specific ST/T Changes, Suggests hyperkalemia, and No evidence of ischemia. Interpreted by me. Reviewed by me. Administered Medications: 14:20 Drug: Famotidine IVP 20 mg IVP once; dilute with 10 mL 0.9% NaCl; give over 2 minutes ld1 Route: IVP; Site: left antecubital; 15:35 Follow up: Response: No adverse reaction ld1 14:20 Drug: Piperacillin-Tazobactam IVPB 3.375 grams IVPB once over 60 mins; (mix in NS 100 ld1 mL) Route: IVPB; Infused Over: 60 mins; Site: left antecubital; 15:35 Follow up: Response: No adverse reaction; IV Status: Completed infusion; IV Intake: ld1 100ml 14:30 Drug: NS 0.9% IV 500 ml IV at bolus once; to be given as a bolus over 30 minutes Route: ld1 IV; Rate: bolus; Site: left antecubital; 15:19 Drug: Insulin Regular Human IVP 8 units IVP once; after d50 {Co-Signature: me1 ld1 (Christina Almendarez RN).} Route: IVP; Site: left antecubital; 15:34 Follow up: Response: No adverse reaction ld1 15:19 Drug: Albuterol Inhalation 7.5 mg Inhalation once Route: Inhalation; ld1 15:19 Drug: Ipratropium Inhalation Aerosol 0.5 mg Inhalation once Route: Inhalation; ld1 15:22 Drug: Kayexalate PO 45 grams PO once Route: PO; ld1 15:35 Follow up: Response: No adverse reaction ld1 15:22 Drug: Furosemide IVP 20 mg IVP once; give over 2 minutes Route: IVP; Site: left ld1 antecubital; 15:34 Follow up: Response: No adverse reaction ld1 15:22 Drug: Calcium Gluconate IVPB 1 grams IVPB once over 60 mins; (mix in NS 100 mL) Route: ld1 IVPB; Infused Over: 60 mins; Site: left antecubital; 15:22 Drug: D50W IVP 50 ml IVP once; (1 amp) Route: IVP; Site: left antecubital; ld1 15:34 Follow up: Urine output 50 ml; Response: No adverse reaction ld1 15:36 Not Given (Physician Discretion): ns 0.9% (30 ml/kg) 30 ml/kg IV at bolus once; Sepsis ld1 Protocol; to be given as a bolus over 90 minutes Disposition Summary: 08/25/24 15:26 Hospitalization Ordered Notes: Hospitalization Status: Inpatient Admission nirali Provider: Jake Simms cha Location: Intensive Care Unit nirali Condition: Fair nirali Problem: new nirali Symptoms: have worsened nirali Bed/Room Type: Standard [facility] Room Assignment: 5-(08/25/24 19:10) vk Diagnosis - Morbid (severe) obesity with alveolar hypoventilation nirali - Altered mental status, unspecified nirali - 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 nirali - Other retention of urine - 1000 cc nirali - Venous insufficiency (chronic) (peripheral) nirali - Acute kidney failure, unspecified nirali - Hyperkalemia nirali - Hypo-osmolality and hyponatremia nirali - Elevated white blood cell count nirali Forms: - Medication Reconciliation Form nirali - SBAR form nirali - Leadership Thank You Letter nirali Signatures: Dispatcher [employer] Boyd Mccullough MD MD cha Attema, Lee, BOATBUILDER SUPERVISOR-C BOATBUILDER SUPERVISOR-Cla1 Kacey Vincent RN RN ld1 Dinora Yates Michelle RN me1 Corrections: (The following items were deleted from the chart) 12:11 12:10 PMHx: "pre diabetic"; ld1 ld1 12:11 12:10 PMHx: "pre diabetes" (R hip); ld1 ld1 12:46 12:46 BASIC METABOLIC PANEL+C.LAB.BRZ ordered. EDMS EDMS 12:46 12:46 CBC+H.LAB.BRZ ordered. EDMS EDMS 12:46 12:46 HEPATIC FUNCTION+C.LAB.BRZ ordered. EDMS EDMS 12:46 12:46 MAGNESIUM+C.LAB.BRZ ordered. EDMS EDMS 12:46 12:46 PROBNP+C.LAB.BRZ ordered. EDMS EDMS 12:46 12:46 PROTIME (+INR)+COAG.LAB.BRZ ordered. EDMS EDMS 12:46 12:46 Troponin High Sensitivity+C.LAB.BRZ ordered. EDMS EDMS 12:46 12:46 LIPASE+C.LAB.BRZ ordered. EDMS EDMS 12:46 12:46 UA Rfx Richard Cult if indicated+U.LAB.BRZ ordered. EDMS EDMS 12:46 12:46 BLOOD CULTURE*+BA.LAB.BRZ ordered. EDMS EDMS 12:46 12:46 LACTATE+C.LAB.BRZ ordered. EDMS EDMS 12:46 12:46 Head C Spine Cap Wo Con+CT.RAD.BRZ ordered. EDMS EDMS 14:45 14:45 Osmolality, Urine ordered. EDMS EDMS 14:45 14:45 OSMOLALITY, SERUM+SC.LAB.BRZ ordered. EDMS EDMS 14:45 14:45 URINE SODIUM RANDOM+CHEM UR.LAB.BRZ ordered. EDMS EDMS 15:14 15:14 THYROID STIMULAT HORMONE+C.LAB.BRZ ordered. EDMS EDMS 19:10 15:26 nirali vk
--- NOTE | 2024-08-25 16:07 | RAD REPORT ---
EXAMINATION: US BILATERAL LOWER EXTREMITY VENOUS DOPPLER CLINICAL INDICATION: PAIN TECHNIQUE: Complete bilateral duplex sonography of the BILATERAL lower extremity veins was performed. The examination included compression for vein patency, color Doppler imaging and flow augmentation in response to distal compression of the distal external iliac, common femoral, femoral, popliteal, t ibial, and great and small saphenous veins. COMPARISON: No prior exam. FINDINGS: Duplex sonography testing of the veins of the BILATERAL lower extremity was performed. Color flow jose ging shows all veins to be compressible with [id number] color filling. Pulsatile and phasic flow is present within all lower extremity deep and superficial veins examined. IMPRESSION: There is no deep vein or superficial vein thrombosis.
[2024-08-25 16:18] LABS: Blood Morphology Comment NOT SEEN (NOT SEEN); Differential Total Cells Count 100; Segmented Neutrophils 86 % (40-80)
[2024-08-25 16:36] LABS: Arterial Blood Carboxyhemoglob 0.8 % (0-1.5); Blood Gas Oxyhemoglobin 93.8 % (94-97); Blood O2 Saturation 96.3 % (92-98.5)
[2024-08-25 16:37] LABS: Blood Gas Inspired Oxygen 21.0 %
[2024-08-25] MEDS: D5W 1,000 ML with NA BICARB 8.4% 150 MEQ IV SCH (17:00)
--- NOTE | 2024-08-25 17:09 | P.HP ---
Certification for Inpatient Patient admitted to: Inpatient With expected LOS: >2 Midnights Patient will require the following post-hospital care: None Practitioner: I am a practitioner with admitting privileges, knowledge of patient current condition, hospital course, and medical plan of care. Services: Services provided to patient in accordance with Admission requirements found in Title 42 Section 412.3 of the Code of Federal Regulations Patient History Date of Service: 08/25/24 History of Present Illness: 63-year-old female with history of chronic hypercapnic/hypoxic respiratory failure, chronic diastolic congestive heart failure, DARIO, atrial fibrillation on chronic anticoagulation, lymphedema presents emergency department after having multiple falls, sliding out of her recliner at home. Her daughter bedside reports that she has had a GI bug with nausea/vomiting/diarrhea for the past 1 week or so, she also has wounds on her sacrum has been treating with Bactroban at home. Patient was evaluated here in the emergency department her labs were significant for a sodium of 123 potassium of 5.9 bicarb of 20 troponin 122.8 BNP 3646 serum osmolality 275 urine osmolality 406 urine random sodium less than 15 white blood count 15.9 hemoglobin 11.3 ABG was obtained which showed a pH of 7.173 pCO2 44.3 bicarb of 15.6. In the ER she was given medications for the hyperkalemia as well as IV Lasix and 500 mL of normal saline. I discussed the case with nephrology who recommended a bicarb drip overnight and checking the chemistry every 4 hours until the morning. He also appears to be some cellulitis of the left lower extremity with a small ulceration present to the anterior portion of the lower leg. Patient is very lethargic likely metabolic encephalopathy secondary to her hyponatremia and metabolic acidosis. She will be admitted to the ICU for further management. Allergies No Known Allergies Allergy (Verified 11/17/22 23:23) Home Medications: Furosemide 40 mg PO TID 10/10/21 Atorvastatin Calcium [Lipitor] 40 mg PO BEDTIME #30 tab 10/13/21 Sotalol HCl [Betapace*] 80 mg PO BID 6AM 6PM #60 tab 10/13/21 Spironolactone [Aldactone*] 25 mg PO BID #60 tab 10/13/21 Apixaban [Eliquis] 5 mg PO BID #60 tab 04/19/22 Benzonatate [Tessalon Perle*] 100 mg PO TID PRN #30 cap 04/19/22 Albuterol Neb [Proventil 0.083% Neb Soln] 2.5 mg NEB Q8HR PRN 11/17/22 Amlodipine Besylate [Norvasc] 10 mg PO DAILY 11/17/22 Budesonide/Glycopyr/Formoterol [Breztri Aerosphere Inhaler] 2 inhaler IH BID 11/17/22 Ipratropium Neb [Atrovent*] 0.5 mg NEB Q8HR 11/17/22 Albuterol Sulfate [Albuterol Sulfate Hfa] 2 puff IH Q6HP PRN 05/19/24 Gabapentin 300 mg PO TID 05/19/24 Ipratropium [place] [Atrovent Hfa] 2 puff IH QID 05/19/24 Sertraline [Zoloft*] 50 mg PO DAILY 05/19/24 Mupirocin Oint [Bactroban 2% Ointment] 22 appl TP TID #1 tube 05/22/24 acetaZOLAMIDE [Acetazolamide] 250 mg PO DAILY #30 tab 05/22/24 - Past Medical/Surgical History Diabetic: No -: COPD -: HTN -: HLD -: DARIO -: Tr Cellulitis -: Chronic diastolic congestive heart failure -: Atrial fibrillation on chronic anticoagulation -: -: hip/ankle surgery Psychosocial/ Personal History: Pt currently unemployed after a fall last year, lives with family - Family History Mother -: Cancer Notes: stomach - Social History Alcohol use: Yes CD- Drugs: No Caffeine use: No Place of Residence: Home Review of Systems is unable to be obtained Neurological: Confusion, Other (Lethargic) Physical Examination - Physical Exam General: Confused, Other (Drowsy) HEENT: Atraumatic Neck: Supple Respiratory: Diminished Cardiovascular: Edema (Bilateral lower extremity edema) Capillary refill: <2 Seconds Gastrointestinal: Normal bowel sounds Musculoskeletal: Contractures Integumentary: Erythema, Warmth (Left lower extremity) Neurological: Other (Patient is lethargic, speech is mildly slurred, confused) Urinary: Sorenson catheter (Placed in ED) - Studies Laboratory Data (last 24 hrs) 08/25/24 08/25/24 08/25/24 13:50 13:50 13:50 WBC 15.90 H Hgb 11.3 L Hct 34.2 L Plt Count 468 H PT 12.5 INR 1.10 Sodium 123 L Potassium 5.9 H BUN 47 H Creatinine 1.17 H Glucose 108 H Magnesium 2.4 Total Bilirubin 0.4 AST 13 L ALT < 14 Alkaline Phosphatase 111 Lipase 454 H Assessment and Plan - Plan Assessment: Hyponatremia Hyperkalemia Metabolic acidosis Metabolic encephalopathy secondary to above Left lower extremity cellulitis Chronic diastolic congestive heart failure Chronic hypercapnic/hypoxic respiratory failure Atrial fibrillation on chronic anticoagulation Elevated troponin Sacral wounds Plan: Hyponatremia Hyperkalemia Metabolic acidosis Metabolic encephalopathy secondary to above Case discussed with nephrology Will start bicarb drip overnight, recheck chemistry every 4 hours x 3 Patient takes spironolactone, potassium, acetazolamide at home-will reevaluate in the morning Admit to ICU given electrolyte arrangements, acidosis and confusion Left lower extremity cellulitis Continue antibiotics vancomycin/cefepime for now, monitor erythema of left lower extremity Chronic diastolic congestive heart failure Difficult to evaluate volume status She does have lower extremity edema/lymphedema CT chest did not show any interstitial edema or pleural effusions BNP and troponin elevated Takes acetazolamide and spironolactone at home Had recent GI bug with nausea/vomiting diarrhea for 1 week Will consult cardiology and nephrology, gentle bicarb drip overnight Chronic hypercapnic/hypoxic respiratory failure Continue supplemental oxygen Hypercapnia on ABG currently Atrial fibrillation on chronic anticoagulation Continue Eliquis and sotalol, monitor on telemetry Elevated troponin Suspect this is demand ischemia, will trend troponins and monitor on telemetry Cardiology consultation in place Sacral wounds Consult wound healing center DVT PPX: Continue Eliquis Code status: Full code Discharge Plan: Home Plan to discharge in: Greater than 2 days - Advance Directives Does patient have a Living Will: No Does patient have a Durable POA for Healthcare: Yes - Code Status/Comfort Care Code Status Assessed: Yes (Full code) Critical Care: No Time Spent Managing Pts Care (In Minutes): 75
[2024-08-25] MEDS: VANCOMYCIN 2 GM in NA CHLORIDE 0.9% 500 ML IVPB SCH (18:00)
[2024-08-25] MEDS: SOTALOL HCL 80 MG TAB PO SCH (18:00)
[2024-08-25] MEDS ORDERED: SOTALOL HCL 80 MG TAB ONE (19:09)
[2024-08-25] MEDS: APIXABAN 5 MG TABLET PO SCH (21:00)
[2024-08-25] MEDS ORDERED: APIXABAN 5 MG TABLET ONE (21:44)
[2024-08-25 22:05] LABS: AST/SGOT 11 U/L (15-37); Albumin 2.3 g/dL (3.4-5.0); Albumin/Globulin Ratio 0.6 (1.1-1.8); Alkaline Phosphatase 92 U/L (45-117); Anion Gap 11.9 mEq/L (5.0-15.0); BUN Blood Urea Nitrogen 38 mg/dL (7-18); Globulin 3.9 g/dL (2.3-3.5); Glucose Level 120 mg/dL (74-106); Potassium 3.9 mEq/L (3.5-5.1)
[2024-08-25 22:06] LABS: ALT/SGPT < 14 U/L (13-56)
[2024-08-25] MEDS: KCL 20 MEQ/100 mL IVPB 100 ML IV ONE (22:38)
[2024-08-25] MEDS: D5W 1,000 ML IV ONE (22:40)
[2024-08-25] MEDS: CEFEPIME 1 GM in NA CHLORIDE 0.9% 100 ML IV SCH (22:43)
[2024-08-25] MEDS: D5W 1,000 ML with POTASSIUM CL 20 MEQ IV SCH (22:44)
[2024-08-26 01:53] LABS: Anion Gap 13.0 mEq/L (5.0-15.0); BUN Blood Urea Nitrogen 36.0 mg/dL (7-18); Glucose Level 141.0 mg/dL (74-106); Potassium 4.0 mEq/L (3.5-5.1)
[2024-08-26 02:07] LABS: Troponin High Sensitivity 82.7 pg/mL (<58.9)
[2024-08-26 08:02] LABS: Absolute Lymphocytes (CBC) 0.9 K/uL (0.7-4.9); Hematocrit 31.6 % (36.0-45.0); Hemoglobin 10.7 g/dL (12.0-15.0); MCH 31.8 pg (27.0-35.0); MCHC 33.7 g/dL (32.0-36.0); MCV 94.3 fL (80-100); MPV 6.9 fL (7.6-11.3); Nucleated RBC Absolute Count 0.0 (0-0); Nucleated Red Blood Cells % 0.1 % (0-0); RBC Red Blood Cell Count 3.35 M/uL (3.86-4.86); White Blood Count 11.30 thou/uL (4.3-10.9)
[2024-08-26 08:14] LABS: Anion Gap 12.3 mEq/L (5.0-15.0); BUN Blood Urea Nitrogen 34.0 mg/dL (7-18); Glucose Level 128.0 mg/dL (74-106); Magnesium 2.0 mg/dL (1.6-2.4); Potassium 4.3 mEq/L (3.5-5.1)
[2024-08-26 08:16] LABS: Troponin High Sensitivity 62.4 pg/mL (<58.9)
[2024-08-26 09:38] LABS: Anion Gap 12.5 mEq/L (5.0-15.0); BUN Blood Urea Nitrogen 31.0 mg/dL (7-18); Glucose Level 155.0 mg/dL (74-106); Potassium 4.5 mEq/L (3.5-5.1)
--- NOTE | 2024-08-26 12:54 | CON ---
Date of Consultation: 08/26/2024 Reason For Consultation: Hyponatremia, hyperkalemia. History Of Present Illness: All the information has been obtained from the record as the patient has altered mental status. This is a 63-year-old female with significant past medical history of obstructive sleep apnea; chronic hypercapnic respiratory failure; AFib, on anticoagulation; lymphedema. The patient was called by emergency service because of recurrent falls. Upon arrival to the hospital, patient had nausea, vomiting and for the last few days was started on Bactroban without significant improvement. Upon arrival to the hospital, patient was found to have hyperkalemia with potassium 5.9 with hyponatremia, sodium down to 123. For that reason, we have been consulted. The patient apparently is on Lasix and spironolactone as outpatient. No other medication except acetazolamide. No nonsteroidal. The patient over the night was started on gentle hydration with fluid resuscitation. The patient's blood pressure stabilized. The patient is making urine output around 75 mL per hour. Her sodium trended up from 123 to 127 over 18 hours. Past Medical History: Includes: 1. COPD. 2. Obstructive sleep apnea. 3. Atrial fibrillation, on anticoagulation. 4. Lymphedema. Allergies: NO KNOWN DRUGS ALLERGY. Home Medications: Include Lasix, atorvastatin, sotalol, spironolactone, Eliquis, albuterol, amlodipine, budesonide, breathing treatment, gabapentin, Zoloft, acetazolamide. Past Surgical History: Include , hip surgery. Family History: Positive for cancer. Social History: Active alcohol. Denied drugs abuse. Denied smoking. Review of Systems: None obtainable. Physical Examination: Vital Signs: When I saw the patient, blood pressure 91/57, pulse of 67. Chest: Decreased entry bilateral base. Heart: S1, S2. Systolic murmur. Abdomen: Soft, nontender, obese. Could not appreciate any organomegaly. Extremities: Chronic edema with erythema bilateral. Laboratory Data: When the patient came to the hospital at 2 o'clock in the afternoon, sodium 123, potassium 5.9, bicarb 20, BUN 47, creatinine 1.1. GFR of 52. Calcium 9.4. Troponin 122. WBC 15.9, hemoglobin 11.3. Current lab data latest after 18 hours, sodium 128 potassium 4.5, bicarb 24, BUN 31, creatinine 0.9, calcium 8.7. Urinalysis: Specific gravity 1.017, osmolality 406, urine sodium less than 5. Current Medications: The patient is on ceftriaxone, vancomycin, Eliquis, ipratropium, D5 at 100. Assessment And Plan: 1. Acute kidney injury secondary to prerenal superimposed with overdiuresis with the Lasix, spironolactone, and acetazolamide, complicated with hyperkalemia, recovered, resolved, looked to me given the blood pressure still on the lower side. I agree with holding all blood pressure medications especially diuresis. We will change IV fluid to D5 half to maintain normal fluid. We will bolus the patient with 500 of normal saline and we will follow up the patient closely. 2. Obstructive uropathy has been ruled out with the CT. 3. I am going to go ahead and send for PC ratio and will follow up. 4. Hyponatremia, mostly secondary to acetazolamide and spironolactone superimposed with depletional. I am going to go ahead and give the patient 500 of normal saline bolus. We will keep holding the diuresis. Change IV fluid to D5 half and we will follow up. 5. Hypertension, currently blood pressure on the lower side. Hold all blood pressure medication. 6. Lymphedema. Edema has been subsided with the presence of hyponatremia, acute kidney injury. We will hold on the diuresis. 7. Non-anion gap metabolic acidosis secondary to renal failure, recovered. No need for bicarb. 8. Cellulitis. Continue current antibiotic. We will follow up with primary. 9. Atrial fibrillation as by primary. 10. Altered mental status as by primary. 11. Hyperkalemia secondary to renal failure superimposed with spironolactone, recovered, resolved. Keep holding spironolactone. Thank you Dr. Simms for allowing us to participate in the care of your patient. Time spent examining the patient [id number] reviewing data lab and the radiology placing orders or discussing the case with the patient discussing the case with the body service team member including hospitalist and nursing staff more than 75- minute GILBERTO/CARITO Voice ID: [id number] Report ID: [id number] [facility]
[2024-08-26] MEDS: NA CHLORIDE 0.9% 500 ML IV ONE (13:01)
[2024-08-26] MEDS: D5.45NS W/KCL 20MEQ 20 MEQ/1,000 ML BAG IV SCH (13:02)
[2024-08-26 13:52] LABS: Anion Gap 12.0 mEq/L (5.0-15.0); BUN Blood Urea Nitrogen 30.0 mg/dL (7-18); Glucose Level 156.0 mg/dL (74-106); Potassium 4.0 mEq/L (3.5-5.1)
[2024-08-26 14:14] LABS: UR CREAT 93.0 mg/dL (20-320); UR PROTEIN 34.0 mg/dL (<11.9)
--- NOTE | 2024-08-26 15:24 | P.PN ---
Date of Service: 08/26/24 Subjective: No acute events overnight Mental status has improved Sodium improving Patient states feeling very weak ROS: 10 point ROS as noted above, otherwise negative Physical exam GEN: Alert, oriented, NAD HEENT: Normal conjunctiva, sclera anicteric CV: Regular rate and rhythm, lower extremity lymphedema Pulm: Nonlabored respirations on room air ABD: Soft, nontender, nondistended MSK: No joint tenderness Integumentary: Mild erythema left lower extremity with ulceration present, sacral decubitus ulcerations present Neuro: Normal speech, normal affect Vitals reviewed Assessment: Hyponatremia Hyperkalemia Metabolic acidosis Metabolic encephalopathy secondary to above Left lower extremity cellulitis Chronic diastolic congestive heart failure Chronic hypercapnic/hypoxic respiratory failure Atrial fibrillation on chronic anticoagulation Elevated troponin Sacral wounds Plan: Hyponatremia Hyperkalemia Metabolic acidosis Metabolic encephalopathy secondary to above Case discussed with nephrology Seen by nephrology, IV fluids adjusted, bicarb discontinued Patient takes spironolactone, potassium, acetazolamide at home-on hold for now Possible downgrade from ICU Left lower extremity cellulitis Continue antibiotics vancomycin/cefepime for now, monitor erythema of left lower extremity Chronic diastolic congestive heart failure Difficult to evaluate volume status She does have lower extremity edema/lymphedema CT chest did not show any interstitial edema or pleural effusions BNP and troponin elevated Takes acetazolamide and spironolactone at home Had recent GI bug with nausea/vomiting diarrhea for 1 week Cardiology and nephrology consulted/following Chronic hypercapnic/hypoxic respiratory failure Continue supplemental oxygen No hypercapnia on ABG Atrial fibrillation on chronic anticoagulation Continue Eliquis and sotalol, monitor on telemetry Elevated troponin Suspect this is demand ischemia Cardiology consultation in place Troponin downtrending, no chest pain continue to monitor on telemetry Sacral wounds Consult wound healing center DVT PPX: Continue Eliquis Code status: Full code Discharge Plan: Home Plan to discharge in: Greater than 2 days Time Spent Managing Pts Care (In Minutes): 35
[2024-08-26 19:50] LABS: Anion Gap 10.5 mEq/L (5.0-15.0); BUN Blood Urea Nitrogen 26.0 mg/dL (7-18); Glucose Level 150.0 mg/dL (74-106); Potassium 4.5 mEq/L (3.5-5.1)
[2024-08-26] MEDS: NA CHLORIDE 0.9% 0 ML ONE (20:42)
[2024-08-27 02:22] LABS: Anion Gap 10.1 mEq/L (5.0-15.0); BUN Blood Urea Nitrogen 26.0 mg/dL (7-18); Glucose Level 144.0 mg/dL (74-106); Potassium 4.1 mEq/L (3.5-5.1)
[2024-08-27 05:46] LABS: Absolute Lymphocytes (CBC) 1.1 K/uL (0.7-4.9); Hematocrit 29.2 % (36.0-45.0); Hemoglobin 9.8 g/dL (12.0-15.0); MCH 32.0 pg (27.0-35.0); MCHC 33.4 g/dL (32.0-36.0); MCV 95.7 fL (80-100); MPV 7.1 fL (7.6-11.3); Nucleated RBC Absolute Count 0.0 (0-0); Nucleated Red Blood Cells % 0.3 % (0-0); RBC Red Blood Cell Count 3.05 M/uL (3.86-4.86); White Blood Count 10.80 thou/uL (4.3-10.9)
[2024-08-27 06:07] LABS: Albumin 2.0 g/dL (3.4-5.0); Anion Gap 10.1 mEq/L (5.0-15.0); BUN Blood Urea Nitrogen 22.0 mg/dL (7-18); Glucose Level 129.0 mg/dL (74-106); Magnesium 1.9 mg/dL (1.6-2.4); Potassium 4.1 mEq/L (3.5-5.1); Uric Acid 7.8 mg/dL (2.6-6.0)
[2024-08-27] MEDS: HYDROCODONE/APAP 7.5/325 MG TAB PO PRN (08:06)
--- NOTE | 2024-08-27 09:14 | P.PN ---
Date of Service: 08/27/24 Subjective: No acute events overnight Mental status has improved Sodium improving Patient states feeling very weak Stable for downgrade from ICU ROS: 10 point ROS as noted above, otherwise negative Physical exam GEN: Alert, oriented, NAD HEENT: Normal conjunctiva, sclera anicteric CV: Regular rate and rhythm, lower extremity lymphedema Pulm: Nonlabored respirations on room air ABD: Soft, nontender, nondistended MSK: No joint tenderness Integumentary: Erythema to left lower extremity significant improved Neuro: Normal speech, normal affect Vitals reviewed Assessment: Hyponatremia Hyperkalemia Metabolic acidosis Metabolic encephalopathy secondary to above Left lower extremity cellulitis Chronic diastolic congestive heart failure Chronic hypercapnic/hypoxic respiratory failure Atrial fibrillation on chronic anticoagulation Elevated troponin Sacral wounds Plan: Hyponatremia Hyperkalemia Metabolic acidosis Metabolic encephalopathy secondary to above Case discussed with nephrology Seen by nephrology, IV fluids adjusted, bicarb discontinued Patient takes spironolactone, potassium, acetazolamide at home-on hold for now Downgrade from ICU today Left lower extremity cellulitis Continue antibiotics vancomycin/cefepime for now, monitor erythema of left lower extremity Left lower extremity erythema significant improved, continue IV antibiotics for now Blood cultures with no growth in 24 hours Chronic diastolic congestive heart failure Difficult to evaluate volume status She does have lower extremity edema/lymphedema CT chest did not show any interstitial edema or pleural effusions BNP and troponin elevated Takes acetazolamide and spironolactone at home Had recent GI bug with nausea/vomiting diarrhea for 1 week Cardiology and nephrology consulted/following Chronic hypercapnic/hypoxic respiratory failure Continue supplemental oxygen No hypercapnia on ABG Atrial fibrillation on chronic anticoagulation Continue Eliquis and sotalol, monitor on telemetry Elevated troponin Suspect this is demand ischemia Cardiology consultation in place Troponin downtrending, no chest pain continue to monitor on telemetry Sacral wounds Consult wound healing center Pain medications added DVT PPX: Continue Eliquis Code status: Full code Discharge Plan: Home Plan to discharge in: Greater than 2 days Time Spent Managing Pts Care (In Minutes): 35
[2024-08-27] MEDS ORDERED: SODIUM CHLORIDE 0.9% 10ML INJ IV PRN (18:40)
--- NOTE | 2024-08-27 18:45 | PN ---
Date of Progress Note: 08/27/2024 Subjective: The patient was admitted to the hospital with hypercapnic respiratory failure, atrial fibrillation. The patient found to have acute kidney injury and edema. The patient also found to have cellulitis. The patient feeling better. Physical Examination: Vital Signs: When I saw the patient, blood pressure of 102/63. Chest: Decreased entry bilateral base. Heart: S1, S2. Regular. Abdomen: Soft, nontender. Extremities: Lymphedema bilateral of +1. Neurologic: Alert. No focality. Laboratory Data: For the patient, hemoglobin 9.8, WBC 10.8. Sodium 131, potassium 4.1, bicarb 23, BUN 22, creatinine 0.7, calcium 8.7 phosphorus 3. Magnesium 1.9. Current Medications: The patient on include: 1. Eliquis. 2. Cefepime. 3. Vancomycin. 4. Sotalol 80 b.i.d. 5. D5 half at 75 per hour. Assessment And Plan: 1. Acute kidney injury secondary to over-diurese, currently normal volume. I am going to discontinue IV fluid and we will continue to monitor the patient. 2. Hyponatremia secondary to depletional over-diurese. Currently, sodium on the acceptable range 131. I am going to keep holding the diuresis. Discontinue IV fluid and we will monitor. 3. Lymphedema with edema, still stable. No respiratory symptoms. Keep holding diuresis. Discontinue IV fluid. 4. Non-anion gap metabolic acidosis, resolved. 5. Cellulitis, continue current antibiotic. 6. Atrial fibrillation, stable as by Cardiology and Primary. 7. Hyperkalemia, secondary to renal failure, superimposed with spironolactone, recovered, resolved. Time spent examining the patient [id number] reviewing data lab and the radiology placing orders or discussing the case with the patient discussing the case with the steam table attendant including hospitalist and nursing staff more than 55- minute GILBERTO/CARITO Voice ID: [id number] Report ID: [id number] KHADIJAH
--- NOTE | 2024-08-27 19:25 | CON ---
Date of Consultation: 08/27/2024 Reason For Consultation: Elevated troponin. History Of Present Illness: This is a 63-year-old female, history of chronic hypoxic and hypercapnic respiratory failure due to obesity hypoventilation syndrome, severe obstructive sleep apnea, atrial fibrillation, lymphoma, presented due to multiple falls, was having some GI symptoms with nausea, vom iting, and diarrhea for about week prior, she became very weak and started to fall. Denies having an y chest pain. No nausea or vomiting. No nausea at the present time. Past Medical History: COPD, chronic respiratory failure, hypertension, dyslipidemia, obstructive sle ep apnea, morbid obesity, atrial fibrillation, diastolic heart failure. Past Surgical History: , and hip and ankle surgery. Medications: Refer to reconciliation sheet for detailed list. Allergies: NO KNOWN DRUG ALLERGIES. Family History: No premature coronary artery disease or cancer. Social History: She does not smoke or drink. Does not use any drugs. Review of Systems: All systems reviewed and they were negative except as mentioned in the HPI. Physical Examination: Vital Signs: Reviewed. Head and Neck: Pupils are equal, reactive to light. Intact eye movements. No JVD. No cervical lym phadenopathy. Neck is supple. Thyroid is not enlarged. Lungs: Clear to auscultation bilaterally. No rhonchi, wheezing, or crackles. No accessory muscle u se. Heart: Regular rate and rhythm. No extra sounds. Abdomen: Soft, nontender. Bowel sounds positive. No organomegaly. No masses or hernia. No rigidi ty or rebound. Extremities: Edema bilaterally with cellulitis of her leg. Neurologic: She is alert, but lethargic. Moving all extremities. Lymph Nodes: No cervical or axill hermelinda lymphadenopathy. Investigations: BUN 22, creatinine 0.7, and hemoglobin is 9.8. Troponin peaked at 122 and down to 6 2. Assessment And Plan: 1. Elevated troponin. No chest pain, and there is no significant delta and there is a downward trend and this is likely demand ischemia. No further cardiac workup is needed. Once the patient is more alert and awake, plan for reinterview and workup will be done as an outpatient. 2. Atrial fibrillation. This issue is controlled. Heart rate is controlled. Continue Eliquis and s otalol. 3. Hypertension. Blood pressure is controlled. 4. Acute on chronic respiratory failure. Patient on supportive measurements and wide-spectrum antibi otics. 5. Cellulitis of lower extremities, on antibiotics. 6. Congestive heart failure, slightly fluid overloaded. Recommend gentle diuresis if blood pressure allows. SR/MODL Voice ID: [id number] Report ID: [id number]
[2024-08-27] MEDS: PANTOPRAZOLE 40 MG INJ IVP SCH (20:58)
[2024-08-28 05:31] LABS: Absolute Lymphocytes (CBC) 1.1 K/uL (0.7-4.9); Hematocrit 28.3 % (36.0-45.0); Hemoglobin 9.5 g/dL (12.0-15.0); MCH 31.7 pg (27.0-35.0); MCHC 33.5 g/dL (32.0-36.0); MCV 94.7 fL (80-100); MPV 6.8 fL (7.6-11.3); Nucleated RBC Absolute Count 0.0 (0-0); Nucleated Red Blood Cells % 0.2 % (0-0); RBC Red Blood Cell Count 2.99 M/uL (3.86-4.86); White Blood Count 11.80 thou/uL (4.3-10.9)
[2024-08-28 05:44] LABS: Albumin 2.0 g/dL (3.4-5.0); Anion Gap 11.2 mEq/L (5.0-15.0); BUN Blood Urea Nitrogen 19.0 mg/dL (7-18); Glucose Level 116.0 mg/dL (74-106); Magnesium 1.6 mg/dL (1.6-2.4); Potassium 4.2 mEq/L (3.5-5.1)
[2024-08-28 08:13] LABS: Differential Total Cells Count 100; Segmented Neutrophils 71 % (40-80)
[2024-08-28 08:14] LABS: Blood Morphology Comment NOT SEEN (NOT SEEN)
[2024-08-28] MEDS: VANCOMYCIN 2 GM in NA CHLORIDE 0.9% 500 ML IVPB SCH (08:37)
--- NOTE | 2024-08-28 08:56 | P.PN ---
Date of Service: 08/28/24 Subjective: Melena overnight x 3 Mental status has improved Sodium improving Patient states feeling very weak ROS: 10 point ROS as noted above, otherwise negative Physical exam GEN: Alert, oriented, NAD HEENT: Normal conjunctiva, sclera anicteric CV: Regular rate and rhythm, lower extremity lymphedema Pulm: Nonlabored respirations on room air ABD: Soft, nontender, nondistended MSK: No joint tenderness Integumentary: Erythema to left lower extremity significant improved Neuro: Normal speech, normal affect Vitals reviewed Assessment: Melena Hyponatremia Hyperkalemia Metabolic acidosis Metabolic encephalopathy secondary to above Left lower extremity cellulitis Chronic diastolic congestive heart failure Chronic hypercapnic/hypoxic respiratory failure Atrial fibrillation on chronic anticoagulation Elevated troponin Sacral wounds Plan: Melena Hold Eliquis GI consultation Likely EGD today Twice daily PPI Hyponatremia Hyperkalemia Metabolic acidosis Metabolic encephalopathy secondary to above Case discussed with nephrology Seen by nephrology IVF now discontinued Patient takes spironolactone, potassium, acetazolamide at home-on hold for now Downgrade from ICU 08/27 Left lower extremity cellulitis Continue antibiotics vancomycin/cefepime -erythema significantly improved Blood cultures with no growth in 24 hours Chronic diastolic congestive heart failure Difficult to evaluate volume status She does have lower extremity edema/lymphedema CT chest did not show any interstitial edema or pleural effusions BNP and troponin elevated-likely demand ischemia Takes acetazolamide and spironolactone at home Had recent GI bug with nausea/vomiting diarrhea for 1 week Cardiology and nephrology consulted/following Chronic hypercapnic/hypoxic respiratory failure Continue supplemental oxygen No hypercapnia on ABG Atrial fibrillation on chronic anticoagulation Eliquis ON HOLD 2/2 melena, continue sotalol, monitor on telemetry Elevated troponin Suspect this is demand ischemia Cardiology consultation in place Troponin downtrending, no chest pain continue to monitor on telemetry Sacral wounds Consult wound healing center Pain medications added DVT PPX: ELIQUIS ON HOLD 2/2 melena 08/28 Code status: Full code Discharge Plan: Home Plan to discharge in: Greater than 2 days Time Spent Managing Pts Care (In Minutes): 35
[2024-08-28] MEDS: MORPHINE 2 MG/ML SYR IV PRN (09:18)
[2024-08-28] MEDS: Ringers Lactate 1,000 ML IV ONE (09:40)
--- NOTE | 2024-08-28 11:25 | CON ---
Date of Consultation: 08/28/2024 Reason For Consultation: New-onset melena. History Of Present Illness: The patient is a 63-year-old white female with history of diabetes, hype rtension, hyperlipidemia, obesity, atrial fibrillation, congestive heart failure, and COPD. The cecile ent was sent to the hospital due to being weak and falling due to nausea, vomiting, diarrhea, and GI blood loss over a week. The patient was admitted to the hospital. Troponin I was noted to be elevat ed and Cardiology was consulted. Patient seems to be stable at this point from cardiac standpoint. However, on Eliquis which was started by Cardiology. The patient began to have black stools, melena. Hemoglobin is decreased from 11.3 on August 25 down to 9.5 today on August 28. Past Medical History: Significant for diabetes, hypertension, hyperlipidemia, obesity, atrial fibril lation, congestive heart rate, COPD on home O2, lymphedema, obstructive sleep apnea, cellulitis in bi lateral lower extremities, previous decubitus ulcers, left ankle surgery bilateral and bilateral tota l hip replacements, , and morbid obesity. Medications: Include Lasix, Aldactone, Lipitor, sotalol, Eliquis, Tessalon Perles, Proventil, Norvas c, budesonide inhaler, Atrovent, albuterol inhaler, gabapentin, Zoloft, Bactroban, acetazolamide. Allergies: NKDA. Social History: , 4 children. No tobacco. Does take alcohol off and on. She denied today, but is on the chart she says she has used it. Family History: Mother of gastric cancer. Unclear about father, but possibly cancer as well ac cording to the patient. Review of Systems: The patient had nausea, vomiting, diarrhea, weakness, fatigue, malaise. She says she has not seen an y blood, so she denied any melena, hematochezia, coffee-ground emesis, but there has been reported by the nurses that she had black stools. She denies chest pain, short of breath, muscle aches, joint a ches, backaches, depression, anxiety. Physical Examination: Vital Signs: She is 5 feet 3 inches, 265 pounds, BMI 48.5 kg/m2, temperature 97.4 degrees Fahrenheit , pulse 71, respirations 18, blood pressure 102/51, O2 sat 100%. General: She is obese. HEENT: Normocephalic, atraumatic. Anicteric. Pupils equal, round, reactive to light. Oropharynx i s clear with very dry mucous membranes and dried out mucus on teeth. Neck: Supple. No masses. Respirations: Clear on anterior exam only. Cardiac: Regular rate and rhythm. No gallops or rubs. Also had positive bowel sounds. Soft, nondi stended, obese, nontender. No hepatosplenomegaly. Extremities: No clubbing or cyanosis. There is some lower extremity edema. Neuro: Alert, oriented. It is unclear as to how oriented because her voice is weak and cannot under stand clearly, but able to move all extremities well. Labs: The patient has a white count of 11.8, up from 10.8 yesterday, but down from 15.9 on admission , hemoglobin 9.5 down from 11.3 on admission, MCV of 94.7, platelet count of 397, polys of 73%, lymph ocytes 9%, monocytes 14%, eosinophils 3%, basophils 1%. PT of 12.5, INR of 1.1. Blood gas; pH is 7. 17, pCO2 of 44.3, PO2 of 98.9, bicarb of 15.6, oxygen saturation 96.3. on room air. The patient has a sodium of 136 which is up from 123, so now it is up to 123-136, potassium 4.1, chloride 102, bicarb 23, BUN of 22, creatinine of 0.7, glucose 129, uric acid 7.8, calcium 8.7, phosphorus 3. 0, magnesium 1.9, albumin 2.0, cortisol 23.47, total protein 6.2, albumin 2.3. Troponin I of 122.8, elevated; 82.7 and 62.4; all elevated. UA is negative. level of 20.8. Imaging: CT chest, abdomen, and pelvis revealed no acute abnormalities. Has a large ventral hernia containing large bowel loops without obstruction. There is a presacral fluid present measuring 2.2 c m. Moderate stool in the rectum and sigmoid diverticulosis and midline inferior ventral hernia conta ining large bowel. Impression: 1. Melena with hemoglobin from 11.3 on August 25, down to 9.5 on August 28. Unknown if she has had prior colonoscopy and EGD. She has had nausea, vomiting, diarrhea x1 week. Needs to investigate with EGD . 2. Nausea, vomiting, diarrhea x1 week and check stool studies. 3. Large midline inferior ventral hernia containing a large bowel, which preclude colonoscopy at this time in case problem during procedure would occur. 4. History of diabetes, hypertension, hyperlipidemia, obesity, atrial fibrillation, congestive heart failure, COPD on home O2, lymphedema, obstructive sleep apnea, , bilateral total hip replace ments, bilateral ankle surgeries, decubitus ulcers, and cellulitis in the lower extremities bilateral ly. Recommendations: 1. Serial H and H's and transfuse p.r.n. 2. PPI therapy. 3. EGD and if needed colonoscopy. 4. IV fluids resuscitation. 5. Hold the Eliquis. 6. Check iron numbers. 7. Check stool studies. 8. Continue IV antibiotics. Also, no colonoscopy on this admission due to large midline anterior ventral hernia containing large bowel. VASQUEZ/CARITO Voice ID: [id number] Report ID: [id number]
[2024-08-28 22:53] LABS: Ferritin 163.0 ng/mL (8-252); Iron 26.0 ug/dL (50-170); Transferrin 169.0 mg/dL (200-360)
--- NOTE | 2024-08-28 23:55 | PN ---
Date of Progress Note: 08/28/2024 Chief Complaint: Hypercapnic, respiratory failure, atrial fibrillation, hyponatremia. History Of Present Illness: The patient was admitted to ICU. Today, she underwent EGD because she w as found to have acute anemia and possible GI bleeding. Review of Systems: The patient denies complaints. Physical Examination: Lungs: Clear to auscultation bilaterally. Heart: S1, S2. Abdomen: Soft. Extremities: No edema. Impression And Plan: 1. Acute kidney injury secondary to volume depletion. The patient has received IV fluids. Renal fun ction is improving. Continue hydration by mouth. Monitor electrolytes. 2. Hyponatremia secondary to over-diuresis and volume depletion. Sodium level gradually improved. I V fluids were adjusted to prevent overly rapid hypercorrection. 3. Lymphedema, stable, holding diuretics. Discontinue IV fluids. 4. Non-anion gap metabolic acidosis, which resolved with hydration and improvement of renal function. 5. Cellulitis. Continue antibiotics. 6. 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 7. Hyperkalemia, multifactorial secondary to acute renal failure and superimposed with spironolactone effect, resolved. Monitor renal function and electrolytes. EB/MODL Voice ID: [id number] Report ID: [id number]
[2024-08-29 05:49] LABS: Absolute Lymphocytes (CBC) 1.2 K/uL (0.7-4.9); Hematocrit 27.8 % (36.0-45.0); Hemoglobin 9.5 g/dL (12.0-15.0); MCH 32.5 pg (27.0-35.0); MCHC 34.1 g/dL (32.0-36.0); MCV 95.5 fL (80-100); MPV 6.7 fL (7.6-11.3); Nucleated RBC Absolute Count 0.0 (0-0); Nucleated Red Blood Cells % 0.3 % (0-0); RBC Red Blood Cell Count 2.91 M/uL (3.86-4.86)
[2024-08-29 05:51] LABS: White Blood Count 10.40 thou/uL (4.3-10.9)
[2024-08-29 06:07] LABS: Albumin 2.0 g/dL (3.4-5.0); Anion Gap 9.2 mEq/L (5.0-15.0); BUN Blood Urea Nitrogen 21.0 mg/dL (7-18); Glucose Level 118.0 mg/dL (74-106)
[2024-08-29 06:11] LABS: Magnesium 1.8 mg/dL (1.6-2.4); Potassium 4.2 mEq/L (3.5-5.1)
[2024-08-29] MEDS: MAGNESIUM SULFATE 1 gm IVPB 1 GM/100 ML BAG IV ONE (10:54)
--- NOTE | 2024-08-29 11:03 | P.PN ---
Subjective Date of Service: 08/29/24 Subjective: No new changes Review of Systems 10-point ROS is otherwise unremarkable Physical Examination - Vital Signs Temperature: 98.6 F Blood Pressure: 105/60 Pulse: 82 Respirations: 21 Pulse Ox (%): 100 - Physical Exam General: Alert, In no apparent distress HEENT: Atraumatic, PERRLA, EOMI Neck: Supple, JVD not distended Respiratory: Clear to auscultation bilaterally, Normal air movement Cardiovascular: Regular rate/rhythm, Normal S1 S2 Gastrointestinal: Normal bowel sounds, No tenderness Musculoskeletal: No tenderness Integumentary: No rashes Neurological: Normal speech, Normal tone, Normal affect Lymphatics: No axilla or inguinal lymphadenopathy - Studies Medications List Reviewed: Yes Assessment And Plan - Current Problems (Diagnosis) (1) Type 2 ND (myocardial infarction) Current Visit: Yes Status: Acute Plan: Patient cardiac enzymes mild elevated with no significant delta. this is type 2 ND No further cardiac work up needed as inpatient can follow up as outpatient with cardiology for stress test. Cardiology will sign off. (2) Atrial fibrillation Current Visit: No Status: Acute Plan: currently in sinus rhythm continue Sotalol 80 mg po BID Resume Eliquis once ok with GI team. (3) Diastolic heart failure Current Visit: No Status: Acute Plan: currently euovolemic on exam resume patient home dose of aldactone 25 mg daily resume lasix 40 mg po bid continue to monitor. Qualifiers: Heart failure chronicity: acute on chronic Qualified Code(s): I50.33 - Acute on chronic diastolic (congestive) heart failure
--- NOTE | 2024-08-29 12:31 | EKG ---
Test Date: 2024-08-25 Test Time: 13:52:17 Featherer: Olena SI MEASUREMENT RESULTS: Intervals: Rate: 71 VT: 192 QRSD: 76 QT: 384 QTc: 417 [place]: P: 71 VT: 192 QRS: 89 T: 46 INTERPRETIVE STATEMENTS: Normal sinus rhythm with sinus arrhythmia Low voltage QRS Borderline ECG Compared to ECG 05/18/2024 16:56:24 Right-axis deviation no longer present ST (T wave) deviation no longer present Electronically Signed On 08-29-24 12:24:02 CDT by Luis Lopez
--- NOTE | 2024-08-29 12:34 | P.PN ---
Date of Service: 08/29/24 Subjective: Confused, unable to answer questions Multiple wounds to arms, legs, and scrum ROS: 10 point ROS as noted above, otherwise negative Physical exam GEN: Alert, confused, NAD HEENT: Normal conjunctiva, sclera anicteric CV: RRR, S1 S2 present, lower extremity lymphedema Pulm: Nonlabored respirations on room air ABD: Soft and nontender on palpation MSK: No joint tenderness Integumentary: Erythema to left lower extremity significant improved Neuro: Normal speech, normal affect Vitals reviewed Assessment: Melena Hyponatremia Hyperkalemia Metabolic acidosis Metabolic encephalopathy secondary to above Left lower extremity cellulitis Chronic diastolic congestive heart failure Chronic hypercapnic/hypoxic respiratory failure Atrial fibrillation on chronic anticoagulation Elevated troponin Sacral wounds Plan: Melena Hold Eliquis GI consultation EGD today Twice daily PPI H/H stable Hyponatremia Hyperkalemia Metabolic acidosis Metabolic encephalopathy secondary to above Case discussed with nephrology Seen by nephrology IVF now discontinued Patient takes spironolactone, potassium, acetazolamide at home-on hold for now Downgrade from ICU 08/27 Left lower extremity cellulitis Continue antibiotics vancomycin/cefepime -erythema significantly improved Blood cultures with no growth in 24 hours Chronic diastolic congestive heart failure Difficult to evaluate volume status She does have lower extremity edema/lymphedema CT chest did not show any interstitial edema or pleural effusions BNP and troponin elevated-likely demand ischemia Takes acetazolamide and spironolactone at home Had recent GI bug with nausea/vomiting diarrhea for 1 week Cardiology and nephrology consulted/following Chronic hypercapnic/hypoxic respiratory failure Continue supplemental oxygen No hypercapnia on ABG Atrial fibrillation on chronic anticoagulation Eliquis ON HOLD 2/2 melena, continue sotalol, monitor on telemetry Elevated troponin Suspect this is demand ischemia Cardiology Following Troponin trended down, no chest pain continue to monitor on telemetry Sacral wounds Consult wound healing center Pain medications added DVT PPX: ELIQUIS ON HOLD 2/2 melena 08/28 Code status: Full code Discharge Plan: Home Plan to discharge in: Greater than 2 days
--- NOTE | 2024-08-29 12:55 | P.PN ---
Subjective Date of Service: 08/29/24 Chief Complaint: GIB Subjective: Improving Physical Examination - Vital Signs Temperature: 98.4 F Blood Pressure: 105/51 Pulse: 90 Respirations: 16 Pulse Ox (%): 98 - Studies Medications List Reviewed: Yes Assessment And Plan - Current Problems (Diagnosis) (1) GIB (gastrointestinal bleeding) Current Visit: Yes Status: Acute (2) Melena Current Visit: Yes Status: Acute (3) Gastritis and duodenitis Current Visit: Yes Status: Acute (4) Multiple gastric erosions Current Visit: Yes Status: Acute (5) Ulcer, gastric, acute Current Visit: Yes Status: Acute (6) Morbid obesity Current Visit: No Status: Acute - Plan REC: 1) continue PPI therapy 2) await EGD pathology
[2024-08-30 06:20] LABS: Albumin 2.1 g/dL (3.4-5.0); Anion Gap 8.7 mEq/L (5.0-15.0); BUN Blood Urea Nitrogen 25.0 mg/dL (7-18); Glucose Level 116.0 mg/dL (74-106); Magnesium 1.9 mg/dL (1.6-2.4); Potassium 3.7 mEq/L (3.5-5.1)
[2024-08-30 10:03] LABS: Arterial Blood Carboxyhemoglob 1.3 % (0-1.5); Blood Gas Inspired Oxygen 21.0 %; Blood Gas Oxyhemoglobin 92.6 % (94-97); Blood O2 Saturation 94.6 % (92-98.5)
[2024-08-30] MEDS: POTASSIUM 25 MEQ EFFERV TAB PO ONE (10:22)
[2024-08-30] MEDS: MAGNESIUM SULFATE 1 gm IVPB 1 GM/100 ML BAG IV ONE (10:23)
[2024-08-30] MEDS: SOD FERRIC GLUC COMPLX/SUCROSE 250 MG in NA CHLORIDE 0.9% 250 ML IV SCH (10:38)
--- NOTE | 2024-08-30 11:01 | PN ---
Date of Progress Note: 08/30/2024 Subjective: The patient was admitted to the hospital with altered mental status, hyponatremia, and acute kidney injury. The patient is treated for cellulitis, recovered. The patient is still confused. Physical Examination: Vital Signs: Blood pressure 111/50, pulse of 90, afebrile. Chest: Decreased entry bilateral base. Heart: S1, S2. Systolic murmur. Abdomen: Soft, nontender. Extremities: Venous stasis change bilateral. Edema has been subsided. Erythema bilateral. Laboratory Data: Hemoglobin 9.5. Sodium 144, potassium 3.7, bicarb 29, BUN 25, creatinine 0.6, calcium 9.3. Phosphorus 2.2, magnesium 1.9. Iron saturation 11, ferritin 163. Current Medications: The patient is on include: 1. Cefepime. 2. Sotalol. 3. Morphine. Assessment And Plan: 1. Acute kidney injury secondary to prerenal, recovered, resolved. 2. Hyponatremia secondary to depletional, overdiuresis. Sodium trended up, normal right now. I will hold any salt supplement. We will continue current treatment. 3. Lymphedema, stable. 4. Non-anion gap metabolic acidosis, recovered, resolved, off bicarb. 5. Cellulitis. Continue current antibiotic. 6. Iron-deficiency anemia. We will start the patient on IV iron. 7. Atrial fibrillation as by primary. 8. Hypokalemia. We will supplement. 9. Hypomagnesemia. We will supplement. Time spent examining the patient [id number] reviewing data lab and the radiology discussing the case with the marketing team lead including hospitalist and nursing staff more than 55-minute MALLIKA Voice ID: [id number] Report ID: [id number] MTDD
--- NOTE | 2024-08-30 11:05 | P.PN ---
Date of Service: 08/30/24 Subjective: Confused, unable to answer questions, nurse reports the patient answered questions for her Some decrease to BLE edema On room air during morning rounds Multiple wounds to arms, legs, and scrum ROS: 10 point ROS as noted above, otherwise negative Physical exam GEN: confused, afebrile HEENT: Normal conjunctiva, sclera anicteric CV: NSR, lower extremity lymphedema Pulm: Nonlabored respirations, on room air ABD: Soft and nontender on palpation MSK: No joint tenderness Integumentary: Erythema to left lower extremity significant improved Neuro: Normal speech, normal affect Vitals reviewed Assessment: Melena Hyponatremia Hyperkalemia Metabolic acidosis Metabolic encephalopathy secondary to above Left lower extremity cellulitis Chronic diastolic congestive heart failure Chronic hypercapnic/hypoxic respiratory failure Atrial fibrillation on chronic anticoagulation Elevated troponin Sacral wounds Plan: Melena Restarted Eliquis GI consultation EGD-following pathology Continue Twice daily PPI H/H stable Hyponatremia Hyperkalemia Metabolic acidosis Metabolic encephalopathy secondary to above nephrology Following Patient takes spironolactone, potassium, acetazolamide at home-on hold for now Downgrade from ICU 08/27 Left lower extremity cellulitis Continue antibiotics vancomycin/cefepime -erythema significantly improved Blood cultures with no growth in 24 hours Chronic diastolic congestive heart failure Difficult to evaluate volume status She does have lower extremity edema/lymphedema CT chest did not show any interstitial edema or pleural effusions BNP and troponin elevated-likely demand ischemia Takes acetazolamide and spironolactone at home Had recent GI bug with nausea/vomiting diarrhea for 1 week Cardiology and nephrology consulted/following Chronic hypercapnic/hypoxic respiratory failure Continue supplemental oxygen No hypercapnia on ABG Atrial fibrillation on chronic anticoagulation Eliquis restarted Sotalol stopped, continue metoprolol Continuous telemetry Elevated troponin Suspect this is demand ischemia Cardiology Following Troponin trended down, no chest pain continue to monitor on telemetry Sacral wounds Consult wound healing center Pain medications added DVT PPX: ELIQUIS Code status: Full code Discharge Plan: Home Plan to discharge in: Greater than 2 days Time Spent Managing Pts Care (In Minutes): 45
--- NOTE | 2024-08-30 12:51 | P.PN ---
Subjective Date of Service: 08/30/24 Chief Complaint: GIB Physical Examination - Vital Signs Temperature: 97.6 F Blood Pressure: 111/50 Pulse: 90 Respirations: 20 Pulse Ox (%): 98 - Studies Medications List Reviewed: Yes Assessment And Plan - Current Problems (Diagnosis) (1) GIB (gastrointestinal bleeding) Current Visit: Yes Status: Acute (2) Melena Current Visit: Yes Status: Acute (3) Gastritis and duodenitis Current Visit: Yes Status: Acute (4) Multiple gastric erosions Current Visit: Yes Status: Acute (5) Ulcer, gastric, acute Current Visit: Yes Status: Acute (6) Morbid obesity Current Visit: No Status: Acute - Plan REC: 1) continue PPI therapy 2) await EGD pathology
[2024-08-30] MEDS: NA CHLORIDE 0.9% 100 ML ONE (20:35)
[2024-08-30] MEDS ORDERED: HYDROCORTISONE ACETATE 25MG SUPP PR SCH (21:00)
[2024-08-30] MEDS: APIXABAN 5 MG TABLET PO SCH (21:17)
[2024-08-31 05:34] LABS: Albumin 2.0 g/dL (3.4-5.0); Anion Gap 8.0 mEq/L (5.0-15.0); BUN Blood Urea Nitrogen 21.0 mg/dL (7-18); Glucose Level 110.0 mg/dL (74-106); Magnesium 1.9 mg/dL (1.6-2.4); Potassium 4.0 mEq/L (3.5-5.1)
[2024-08-31 05:39] LABS: Absolute Lymphocytes (CBC) 1.7 K/uL (0.7-4.9); Hematocrit 25.3 % (36.0-45.0); Hemoglobin 8.4 g/dL (12.0-15.0); MCH 32.1 pg (27.0-35.0); MCHC 33.4 g/dL (32.0-36.0); MCV 95.9 fL (80-100); MPV 6.9 fL (7.6-11.3); Nucleated RBC Absolute Count 0.1 (0-0); Nucleated Red Blood Cells % 0.4 % (0-0); RBC Red Blood Cell Count 2.63 M/uL (3.86-4.86)
[2024-08-31 05:44] LABS: White Blood Count 10.90 thou/uL (4.3-10.9)
[2024-08-31] MEDS: LORAZEPAM 1 MG TABLET PO ONE (10:35)
[2024-08-31 10:37] LABS: C.diff Antigen/Toxin Ag pos : Tox neg (NEG : NEG); CDIFF INTERNAL NEG CONTROL White Background (WHITE BKGD); STOOL CONSISTENCY Liquid/Semi-Solid
--- NOTE | 2024-08-31 18:09 | P.PN ---
Date of Service: 08/31/24 Subjective: Conversing better, c/o being uncomfortable in the bed, PT attempts to work with her. Cdiff negative ROS: 10 point ROS as noted above, otherwise negative Physical exam GEN: Oriented x1, NAD HEENT: Normal conjunctiva, sclera anicteric CV: NSR, lower extremity lymphedema Pulm: Nonlabored respirations, on room air ABD: nontender on palpation, distended (obese) MSK: No joint tenderness Integumentary: Erythema to left lower extremity significant improved Neuro: Normal speech, normal affect Vitals reviewed Assessment: Melena Hyponatremia Hyperkalemia Metabolic acidosis Metabolic encephalopathy secondary to above Left lower extremity cellulitis Chronic diastolic congestive heart failure Chronic hypercapnic/hypoxic respiratory failure Atrial fibrillation on chronic anticoagulation Elevated troponin Sacral wounds Plan: Melena Restarted Eliquis GI consultation EGD-following pathology Continue Twice daily PPI H/H stable Hyponatremia-resolved Hyperkalemia Metabolic acidosis Metabolic encephalopathy secondary to above nephrology Following Patient takes spironolactone, potassium, acetazolamide at home-on hold for now Downgrade from ICU 08/27 Left lower extremity cellulitis Continue antibiotics vancomycin/cefepime -erythema significantly improved Blood cultures with no growth in 24 hours Chronic diastolic congestive heart failure Difficult to evaluate volume status She does have lower extremity edema/lymphedema CT chest did not show any interstitial edema or pleural effusions BNP and troponin elevated-likely demand ischemia Takes acetazolamide and spironolactone at home Had recent GI bug with nausea/vomiting diarrhea for 1 week Cardiology and nephrology consulted/following Chronic hypercapnic/hypoxic respiratory failure Continue supplemental oxygen reports wearing a CPap at home, will continue Atrial fibrillation on chronic anticoagulation Eliquis restarted Sotalol stopped, continue metoprolol Continuous telemetry Elevated troponin Suspect this is demand ischemia Cardiology Following Troponin trended down, no chest pain continue to monitor on telemetry Sacral wounds Consult wound healing center Pain medications added DVT PPX: ELIQUIS Code status: Full code Discharge Plan: Home Plan to discharge in: Greater than 2 days Time Spent Managing Pts Care (In Minutes): 45
--- NOTE | 2024-09-01 00:27 | PN ---
Date of Progress Note: 08/31/2024 Chief Complaint: Hyponatremia, acute kidney injury, altered mental status. Subjective: The patient has cellulitis and is on antibiotics. She is admitted to the hospital for g eneralized weakness. She was found to have severe hyponatremia and was started on treatment with IV fluids and sodium chloride tablets. Review of Systems: Denies complaints. Physical Examination: Lungs: Clear to auscultation bilaterally. Heart: S1, S2. Abdomen: Soft. Extremities: Edema has improved. Impression And Plan: 1. Acute kidney injury secondary to prerenal azotemia, nonoliguric acute tubular necrosis. Renal fun ction has improved. Monitor renal function. Avoid nonsteroidal anti-inflammatory medication. 2. Hyponatremia secondary to overdiuresis. Sodium level is improving. Sodium chloride tablets on ho ld. 3. Lymphedema, stable. Avoid excessive diuretics. 4. Non-anion gap metabolic acidosis, recovered, resolved. The patient is off bicarbonate drip. 5. Cellulitis. Continue antibiotics. 6. Iron-deficiency anemia. The patient will continue IV iron according to lab results. 7. Atrial fibrillation, per Primary team. 8. Hypokalemia. Continue supplementation. 9. Hypomagnesemia. Continue supplementation. EB/MODL Voice ID: [id number] Report ID: [id number]
[2024-09-01] MEDS: IPRATROPIUM BROM 0.5MG/2.5ML NEB PRN (04:10)
[2024-09-01] MEDS: ALBUTEROL 2.5 MG/3 ML NEB SOL NEB PRN (04:10)
[2024-09-01 07:28] LABS: Absolute Lymphocytes (CBC) 1.6 K/uL (0.7-4.9); Hematocrit 24.7 % (36.0-45.0); Hemoglobin 8.3 g/dL (12.0-15.0); MCH 32.2 pg (27.0-35.0); MCHC 33.5 g/dL (32.0-36.0); MCV 96.2 fL (80-100); MPV 7.0 fL (7.6-11.3); Nucleated RBC Absolute Count 0.1 (0-0); Nucleated Red Blood Cells % 0.7 % (0-0); RBC Red Blood Cell Count 2.57 M/uL (3.86-4.86); White Blood Count 9.90 thou/uL (4.3-10.9)
[2024-09-01 07:37] LABS: Anion Gap 9.7 mEq/L (5.0-15.0); BUN Blood Urea Nitrogen 25.0 mg/dL (7-18); Glucose Level 117.0 mg/dL (74-106); Potassium 3.7 mEq/L (3.5-5.1)
[2024-09-01 07:59] LABS: Anisocytosis SLIGHT; Blood Morphology Comment NOTED (NOT SEEN); Differential Total Cells Count 100; Macrocytosis SLIGHT; Microcytosis SLIGHT; Platelets Clumped FEW; Segmented Neutrophils 57 % (40-80)
[2024-09-01] MEDS: HALOPERIDOL LACT 5 MG/ML INJ IV ONE (09:53)
--- NOTE | 2024-09-01 13:06 | P.PN ---
Date of Service: 09/01/24 Subjective: awake and oriented to name and place, remains confused to situation Awaiting placement ROS: 10 point ROS as noted above, otherwise negative Physical exam GEN: Oriented x2, confused HEENT: Normal conjunctiva, sclera anicteric CV: NSR, lower extremity lymphedema Pulm: Symmetrical chest wall movement, on 4 LNC ABD: distended (obese) MSK: No joint tenderness Integumentary: Erythema to left lower extremity significant improved Neuro: Normal speech, normal affect Vitals reviewed Assessment: Melena Hyponatremia Hyperkalemia Metabolic acidosis Metabolic encephalopathy secondary to above Left lower extremity cellulitis Chronic diastolic congestive heart failure Chronic hypercapnic/hypoxic respiratory failure Atrial fibrillation on chronic anticoagulation Elevated troponin Sacral wounds Plan: Melena Chronic Inactive Gastritis Restarted Eliquis but Hgb dropped,stopped Eliquis H/H stable GI following EGD-following pathology Continue Twice daily PPI Hyponatremia-resolved Hyperkalemia Metabolic acidosis Metabolic encephalopathy secondary to above nephrology Following Patient takes spironolactone, potassium, acetazolamide at home-on hold for now Downgrade from ICU 08/27 Left lower extremity cellulitis Continue antibiotics vancomycin/cefepime -erythema significantly improved Blood cultures with no growth in 24 hours Chronic diastolic congestive heart failure Difficult to evaluate volume status She does have lower extremity edema/lymphedema CT chest did not show any interstitial edema or pleural effusions BNP and troponin elevated-likely demand ischemia Takes acetazolamide and spironolactone at home Had recent GI bug with nausea/vomiting diarrhea for 1 week Cardiology and nephrology consulted/following Chronic hypercapnic/hypoxic respiratory failure Continue supplemental oxygen Continue wearing home CPap Atrial fibrillation on chronic anticoagulation Eliquis stopped d/t decrease in Hgb Sotalol stopped, continue metoprolol Continuous telemetry Elevated troponin Suspect this is demand ischemia Cardiology Following Troponin trended down, no chest pain continue to monitor on telemetry Sacral wounds Consult wound healing center Pain medications added 09/01 -H/H stable -on 4 LNC, sometimes takes off the oxygen -will continue Cpap -remains confused about situation DVT PPX: ELIQUIS being held Code status: Full code Discharge Plan: SNF Plan to discharge in: Greater than 2 days Time Spent Managing Pts Care (In Minutes): 45
[2024-09-01] MEDS: THIAMINE HCL 100 MG TABLET PO SCH (13:10)
[2024-09-01] MEDS: D5W 1,000 ML IV SCH (13:10)
--- NOTE | 2024-09-02 01:08 | PN ---
Chief Complaint: Hyponatremia, acute kidney injury, altered mental status, encephalopathy. History: The patient is on antibiotics for cellulitis. She was admitted to the hospital because of generalized weakness and cellulitis. She required IV antibiotics. She was found to have severe hypo natremia and started on treatment with IV fluids and sodium chloride tablets. Review of Systems: Denies chest pain, palpitations. Physical Examination: Lungs: Clear to auscultation bilaterally. Heart: S1, S2. Abdomen: Soft. Extremities: Slight edema. Impression And Plan: 1. Acute kidney injury secondary to prerenal azotemia, nonoliguric, acute tubular necrosis. Renal fu nction has improved. Monitor renal function. Avoid nephrotoxic medication. 2. Hyponatremia, secondary to overdiuresis. Sodium level is improving. Sodium chloride tablets on h old. 3. Lymphedema, stable. Avoid excessive diuretic. 4. Non-anion gap metabolic acidosis, recovered, resolved. The patient is off bicarbonate drip. 5. Cellulitis. Continue antibiotics. 6. Iron-deficiency anemia. Continue iron supplementation. 7. Hypokalemia. Continue supplementation. 8. Hypomagnesemia. Continue supplementation. 9. Hypophosphatemia. Continue supplementation. 10. Hyponatremia, resolved. We will advance p.o. fluid intake. Plan is to use IV dextrose to contro l sodium and prevent hypernatremia. EB/MODL Voice ID: [id number] Report ID: [id number]
[2024-09-02 05:51] LABS: Absolute Lymphocytes (CBC) 1.5 K/uL (0.7-4.9); Hematocrit 24.1 % (36.0-45.0); Hemoglobin 8.1 g/dL (12.0-15.0); MCH 32.8 pg (27.0-35.0); MCHC 33.8 g/dL (32.0-36.0); MCV 97.0 fL (80-100); MPV 7.1 fL (7.6-11.3); Nucleated RBC Absolute Count 0.1 (0-0); Nucleated Red Blood Cells % 0.5 % (0-0); RBC Red Blood Cell Count 2.48 M/uL (3.86-4.86); White Blood Count 9.60 thou/uL (4.3-10.9)
[2024-09-02 06:11] LABS: Anion Gap 9.6 mEq/L (5.0-15.0); BUN Blood Urea Nitrogen 25.0 mg/dL (7-18); Glucose Level 130.0 mg/dL (74-106); Potassium 3.6 mEq/L (3.5-5.1)
[2024-09-02] MEDS: POTASS/SODIUM PHOSPHATE 1 PKT POWD.PACK PO SCH (08:29)
--- NOTE | 2024-09-02 11:42 | PN ---
Date of Progress Note: 09/02/2024 Subjective: No overnight events. Continued to require oxygen. Her creatinine is down to 0.6. We w ill stop IV fluid. Objective: Vital Signs: Temperature 98.9, pulse rate 71, blood pressure 105/77. General: Awake, alert, and oriented x3. Looks chronically ill. The patient is obese. Neck: Supple. No elevated JVD. Heart: Regular rate and rhythm. Normal S1, S2. Chest: Basilar rales. Abdomen: Soft and nontender. Extremities: No extremity chronic changes and swelling. Assessment And Plan: 1. Hyponatremia, resolved. Sodium right now up to 141. We will discontinue IV fluid. Diet as tole rated. 2. Melena. Started on Eliquis. Monitor hemoglobin and hematocrit. Continue PPI. 3. Iron deficiency anemia due to gastrointestinal bleeding. Continue IV iron as above. 4. Chronic obstructive pulmonary disease. Continue oxygen and inhaler. 5. Hypokalemia. Continue potassium supplementation. Thanks for allowing me to participate in the patient's care. Total time spent 55 minutes including d ocumentation, reviewing labs, and placing orders. AARON Voice ID: [id number] Report ID: [id number]
[2024-09-02] MEDS: HALOPERIDOL LACT 5 MG/ML INJ IM ONE (13:02)
--- NOTE | 2024-09-02 16:45 | P.PN ---
Date of Service: 09/02/24 Subjective: Lethargic this morning, She grew increasingly aggitated and confused throughout the day Decreased PO intake Awaiting placement ROS: 10 point ROS as noted above, otherwise negative Physical exam GEN: Oriented x1, lethargic, confused CV: regluar rate and rhythm, lower extremity lymphedema Pulm: Nonlabored breathing, on 4 LNC ABD: distended (obese) MSK: No joint tenderness Integumentary: Erythema to left lower extremity significant improved Neuro: Normal speech, normal affect Vitals reviewed Assessment: Melena Chronic Inactive Gastritis Iron deficiency anemia Decreased PO intake Hyponatremia Hyperkalemia Metabolic acidosis Metabolic encephalopathy secondary to above Left lower extremity cellulitis Chronic diastolic congestive heart failure Chronic hypercapnic/hypoxic respiratory failure Atrial fibrillation on chronic anticoagulation Elevated troponin Sacral wounds Plan: Melena Chronic Inactive Gastritis Iron deficiency anemia Restarted Eliquis but Hgb dropped,stopped Eliquis H/H stable GI following EGD-following pathology Continue Twice daily PPI IV Iron daily Decreased PO intake Hyponatremia-resolved Hyperkalemia Metabolic acidosis Metabolic encephalopathy secondary to above nephrology Following Patient takes spironolactone, potassium, acetazolamide at home-on hold for now Downgrade from ICU 08/27 Left lower extremity cellulitis Continue cefepime -erythema significantly improved Stopped vancomycin Blood cultures with no growth to date Chronic diastolic congestive heart failure Difficult to evaluate volume status She does have lower extremity edema/lymphedema CT chest did not show any interstitial edema or pleural effusions BNP and troponin elevated-likely demand ischemia Takes acetazolamide and spironolactone at home Had recent GI bug with nausea/vomiting diarrhea for 1 week Cardiology and nephrology consulted/following Chronic hypercapnic/hypoxic respiratory failure Continue supplemental oxygen Continue wearing home CPap Atrial fibrillation on chronic anticoagulation Eliquis stopped d/t decrease in Hgb Sotalol stopped, continue metoprolol Continuous telemetry Elevated troponin Suspect this is demand ischemia Cardiology Following Troponin trended down, no chest pain continue to monitor on telemetry Sacral wounds Consult wound healing center Pain medications added 09/01 -H/H stable -on 4 LNC, sometimes takes off the oxygen -will continue Cpap -remains confused about situation 09/02 -Some aggitation, decreased PO intake -lethargic and confused -H/H stable, holding Eliquis -continue supportive care -Continue IV iron DVT PPX: ELIQUIS being held Code status: Full code Discharge Plan: SNF Plan to discharge in: Greater than 2 days Time Spent Managing Pts Care (In Minutes): 40 <Adriana Kessler - Last Filed: 09/02/24 16:27> Patient seen and examined independently. Plan of care discussed with Ms. Kessler I agree with above plan of care documented. Patient with intermittent agitation. She is oriented to person and place. I suspect behavioral issues. Most recent arterial blood gas shows moderate CO2 retention Daughter reports patient wears CPAP at home. Daughter was instructed to bring patient home CPAP. No active bleeding Continue IV Protonix Eliquis is on hold, sotalol discontinued A-fib is being controlled with metoprolol per cardiology recommendation Periodic reorientation. Patient has been assessed for skilled rehab. SCD for DVT prophylaxis. <jase casper - Last Filed: 09/03/24 19:15>
[2024-09-03 05:40] LABS: Absolute Lymphocytes (CBC) 1.4 K/uL (0.7-4.9); Hematocrit 23.8 % (36.0-45.0); Hemoglobin 8.0 g/dL (12.0-15.0); MCH 32.2 pg (27.0-35.0); MCHC 33.6 g/dL (32.0-36.0); MCV 95.9 fL (80-100); MPV 7.2 fL (7.6-11.3); Nucleated RBC Absolute Count 0.0 (0-0); Nucleated Red Blood Cells % 0.3 % (0-0); RBC Red Blood Cell Count 2.48 M/uL (3.86-4.86); White Blood Count 10.60 thou/uL (4.3-10.9)
[2024-09-03 05:57] LABS: Anion Gap 11.6 mEq/L (5.0-15.0); BUN Blood Urea Nitrogen 21.0 mg/dL (7-18); Glucose Level 118.0 mg/dL (74-106); Potassium 3.6 mEq/L (3.5-5.1)
[2024-09-03] MEDS: PANTOPRAZOLE 40MG TABLET PO SCH (17:27)
--- NOTE | 2024-09-03 19:16 | P.PN ---
Date of Service: 09/03/24 Subjective: More awake this morning, wore the CPAP last night no new complaints Awaiting placement ROS: 10 point ROS as noted above, otherwise negative Physical exam GEN: Oriented x2, awake, conversing well CV: regluar rate and rhythm, lower extremity lymphedema Pulm: Symmetrical chest wall movement, on 3 LNC ABD: distended (obese) MSK: Peripheral pulse present Integumentary: Erythema to left lower extremity significant improved Neuro: Normal speech, normal affect Vitals reviewed Assessment: Melena Chronic Inactive Gastritis Iron deficiency anemia Decreased PO intake Hyponatremia Hyperkalemia Metabolic acidosis Metabolic encephalopathy secondary to above Left lower extremity cellulitis Chronic diastolic congestive heart failure Chronic hypercapnic/hypoxic respiratory failure Atrial fibrillation on chronic anticoagulation Elevated troponin Sacral wounds Plan: Melena Chronic Inactive Gastritis Iron deficiency anemia Holding Eliquis H/H stable GI following, EGD following pathology Protonix BID IV Iron daily Decreased PO intake Hyponatremia-resolved Hyperkalemia Metabolic acidosis Metabolic encephalopathy secondary to above nephrology Following Patient takes spironolactone, potassium, acetazolamide at home-on hold for now Downgrade from ICU 08/27 Left lower extremity cellulitis Continue cefepime -erythema significantly improved Stopped vancomycin Blood cultures with no growth to date Chronic diastolic congestive heart failure Difficult to evaluate volume status She does have lower extremity edema/lymphedema CT chest did not show any interstitial edema or pleural effusions BNP and troponin elevated-likely demand ischemia Takes acetazolamide and spironolactone at home Had recent GI bug with nausea/vomiting diarrhea for 1 week Cardiology and nephrology consulted/following Chronic hypercapnic/hypoxic respiratory failure Continue supplemental oxygen Continue wearing home CPap Atrial fibrillation on chronic anticoagulation Eliquis stopped d/t decrease in Hgb Sotalol stopped, continue metoprolol Continuous telemetry Elevated troponin Cardiology Following-Suspect this is demand ischemia Troponin trended down, no chest pain continue to monitor on telemetry Sacral wounds Consult wound healing center Pain medications added 09/01 -H/H stable -on 4 LNC, sometimes takes off the oxygen -will continue Cpap -remains confused about situation 09/02 -Some aggitation, decreased PO intake -lethargic and confused -H/H stable, holding Eliquis -continue supportive care -Continue IV iron 09/03 -More oriented this morning -Wore Cpap last night -Awaiting placement DVT PPX: ELIQUIS being held Code status: Full code Discharge Plan: SNF Plan to discharge in: Greater than 2 days Time Spent Managing Pts Care (In Minutes): 42
[2024-09-04] MEDS: LACTOBACILLUS/ACIDOPHILUS TAB PO SCH (13:55)
[2024-09-04] MEDS: ACETAMINOPHEN 325 MG TABLET PO PRN (13:55)
[2024-09-04 15:35] LABS: Absolute Lymphocytes (CBC) 1.8 K/uL (0.7-4.9); Hematocrit 23.0 % (36.0-45.0); Hemoglobin 7.6 g/dL (12.0-15.0); MCH 31.7 pg (27.0-35.0); MCHC 33.1 g/dL (32.0-36.0); MCV 95.7 fL (80-100); MPV 7.3 fL (7.6-11.3); Nucleated RBC Absolute Count 0.0 (0-0); Nucleated Red Blood Cells % 0.1 % (0-0); RBC Red Blood Cell Count 2.41 M/uL (3.86-4.86); White Blood Count 12.50 thou/uL (4.3-10.9)
[2024-09-04 15:51] LABS: Anion Gap 9.8 mEq/L (5.0-15.0); BUN Blood Urea Nitrogen 19.0 mg/dL (7-18); Glucose Level 130.0 mg/dL (74-106); Potassium 3.8 mEq/L (3.5-5.1)
--- NOTE | 2024-09-04 20:14 | P.PN ---
Date of Service: 09/04/24 Subjective: Again, she is conversing well, wearing the Cpap last night This afternoon, she has had some bright red rectal bleeding, Hgb 7.6, will contact Dr. Olvera for recommendations Eliquis has been held since August 30 Awaiting placement ROS: 10 point ROS as noted above, otherwise negative Physical exam GEN: awake, conversing well, NAD CV: RRR, lower extremity lymphedema Pulm: nonlabored breathing, on 3 LNC ABD: distended (obese) MSK: Peripheral pulse present Integumentary: Erythema to left lower extremity significant- improved Neuro: Normal speech, normal affect Vitals reviewed Assessment: Melena Chronic Inactive Gastritis Iron deficiency anemia Decreased PO intake Hyponatremia Hyperkalemia Metabolic acidosis Metabolic encephalopathy secondary to above Left lower extremity cellulitis Chronic diastolic congestive heart failure Chronic hypercapnic/hypoxic respiratory failure Atrial fibrillation on chronic anticoagulation Elevated troponin Sacral wounds Plan: Melena Chronic Inactive Gastritis Iron deficiency anemia Rectal bleeding Holding Eliquis since 08/30 Hgb 7.6- will monitor close GI following, EGD following pathology Protonix BID IV Iron daily Dr. Olvera contacted Decreased PO intake Hyponatremia-resolved Hyperkalemia Metabolic acidosis Metabolic encephalopathy secondary to above nephrology Following Patient takes spironolactone, potassium, acetazolamide at home-on hold for now Downgrade from ICU 08/27 Left lower extremity cellulitis Continue cefepime -erythema significantly improved Stopped vancomycin Blood cultures with no growth to date Chronic diastolic congestive heart failure Difficult to evaluate volume status She does have lower extremity edema/lymphedema CT chest did not show any interstitial edema or pleural effusions BNP and troponin elevated-likely demand ischemia Takes acetazolamide and spironolactone at home Had recent GI bug with nausea/vomiting diarrhea for 1 week Cardiology and nephrology consulted/following Chronic hypercapnic/hypoxic respiratory failure Continue supplemental oxygen Continue wearing home CPap Atrial fibrillation on chronic anticoagulation Eliquis stopped d/t decrease in Hgb Sotalol stopped, continue metoprolol Continuous telemetry Elevated troponin Cardiology Following-Suspect this is demand ischemia Troponin trended down, no chest pain continue to monitor on telemetry Sacral wounds Consult wound healing center Pain medications added 09/01 -H/H stable -on 4 LNC, sometimes takes off the oxygen -will continue Cpap -remains confused about situation 09/02 -Some aggitation, decreased PO intake -lethargic and confused -H/H stable, holding Eliquis -continue supportive care -Continue IV iron 09/03 -More oriented this morning -Wore Cpap last night -Awaiting placement 09/04 -rectal bleeding, contacted Dr. Olvera -Hgb 7.6 -more alert and oriented this morning DVT PPX: ELIQUIS being held Code status: Full code Discharge Plan: SNF Plan to discharge in: Greater than 2 days Time Spent Managing Pts Care (In Minutes): 45
[2024-09-04] MEDS: ENSURE MAX PROTEIN 330 ML LIQUID PO SCH (20:27)
[2024-09-04] MEDS: HEMORRHOIDAL SUPPOS PR SCH (21:00)
--- NOTE | 2024-09-04 21:13 | PN ---
Chief Complaint: Hyponatremia, acute kidney injury, altered mental status, encephalopathy, metabolic encephalopathy. Subjective: The patient is on antibiotics for cellulitis. She was admitted to the hospital because of generalized weakness and cellulitis. She was started on IV antibiotics. She was found to have severe hyponatremia and was treated with IV fluids and sodium chloride tablet. Acute kidney injury was due to prerenal azotemia and nonoliguric to rule out acute tubular necrosis. Renal function has improved. Review of Systems: She denies complaints. Physical Examination: Lungs: Clear to auscultation bilaterally. Heart: S1, S2. Abdomen: Soft. Extremities: Minimal ankle edema. Impression And Plan: 1. Acute kidney injury secondary to prerenal azotemia, nonoliguric, acute tubular necrosis. Renal function has improved. Monitor renal function. Avoid nephrotoxic medication. 2. Hyponatremia secondary to overdiuresis. Sodium level is improving. Sodium chloride tablets on hold. 3. Lymphedema, stable. Avoid excessive diuretic therapy. 4. Non-anion gap metabolic acidosis, resolved. The patient is off bicarbonate drip. 5. Cellulitis. Continue antibiotics. 6. Hypokalemia. Continue supplementation. 7. Hypomagnesemia. Continue supplementation. 8. Hypophosphatemia. Monitor phosphorus level and continue supplementation. Advance p.o. intake as tolerated. 9. Hyponatremia, resolved. The patient will advance p.o. fluid intake. Plan is to use IV dextrose to control sodium level to prevent hypernatremia. EB/MODL Voice ID: [id number] Report ID: [id number] KHADIJAH
[2024-09-05 05:04] VITALS: BMI 48.2
[2024-09-05 06:11] LABS: Hematocrit 20.7 % (36.0-45.0); Hemoglobin 6.9 g/dL (12.0-15.0); MCH 32.2 pg (27.0-35.0); MCHC 33.5 g/dL (32.0-36.0); MCV 96.0 fL (80-100); MPV 8.0 fL (7.6-11.3); RBC Red Blood Cell Count 2.15 M/uL (3.86-4.86); White Blood Count 10.20 thou/uL (4.3-10.9)
[2024-09-05 06:27] LABS: Albumin 1.8 g/dL (3.4-5.0); Anion Gap 8.8 mEq/L (5.0-15.0); BUN Blood Urea Nitrogen 19.0 mg/dL (7-18); Glucose Level 123.0 mg/dL (74-106); Potassium 3.8 mEq/L (3.5-5.1)
[2024-09-05] MEDS ORDERED: NA CHLORIDE 0.9% 250 ML IV SCH (07:00)
--- NOTE | 2024-09-05 10:43 | PN ---
Date of Progress Note: 09/05/2024 Subjective: The patient was admitted to the hospital with hyponatremia, acute kidney injury. The patient treated, recovered. The patient waiting for placement. Physical Examination: Vital Signs: Blood pressure 100/59, pulse of 72, afebrile. Chest: Clear to auscultation. Heart: S1, S2. Systolic murmur. Abdomen: Soft, nontender, morbidly obese. Extremities: Venous stasis change with erythema bilateral. Laboratory Data: WBC 10.2, hemoglobin 6.9. Sodium 140, potassium 3.8, bicarb 29, BUN 19, creatinine 0.6, calcium 8.4. Current Medications: The patient is on include IV iron, Tylenol, Zofran. Assessment And Plan: 1. Acute kidney injury secondary to prerenal, recovered, resolved. Hyponatremia secondary to depletional, over diurese, sodium normalized. Currently, I am going to continue to monitor. 2. Cellulitis as by Primary. 3. Atrial fibrillation, stable. 4. Hypokalemia, hypomagnesemia, status post supplement, resolved. Time spent examining the patient [id number] reviewing data lab and the radiology placing order discussing the case with the promotions team leader including hospitalist and nursing staff more than 55-minute GILBERTO/CARITO Voice ID: [id number] Report ID: [id number] KHADIJAH
--- NOTE | 2024-09-05 13:15 | P.PN ---
Date of Service: 09/05/24 Subjective: No further episodes of BRBPR today Eliquis has been held since August 30 Prepartion H added yesterday Awaiting placement ROS: 10 point ROS as noted above, otherwise negative Physical exam GEN: awake, conversing well, NAD CV: RRR, lower extremity lymphedema Pulm: nonlabored breathing, on 3 LNC ABD: distended (obese) MSK: Peripheral pulse present Integumentary: Erythema to left lower extremity significant- improved Neuro: Normal speech, normal affect Vitals reviewed Assessment: Melena Chronic Inactive Gastritis Iron deficiency anemia Decreased PO intake Hyponatremia Hyperkalemia Metabolic acidosis Metabolic encephalopathy secondary to above Left lower extremity cellulitis Chronic diastolic congestive heart failure Chronic hypercapnic/hypoxic respiratory failure Atrial fibrillation on chronic anticoagulation Elevated troponin Sacral wounds Plan: Melena Chronic Inactive Gastritis Iron deficiency anemia Rectal bleeding Holding Eliquis since 08/30 Hgb 6.9 this morning Receiving one unit PRBC GI following, EGD following pathology Protonix BID IV Iron daily Dr. Olvera contacted Decreased PO intake Hyponatremia-resolved Hyperkalemia Metabolic acidosis Metabolic encephalopathy secondary to above nephrology Following Patient takes spironolactone, potassium, acetazolamide at home-on hold for now Downgrade from ICU 08/27 Left lower extremity cellulitis Continue cefepime -erythema significantly improved Stopped vancomycin Blood cultures with no growth to date Chronic diastolic congestive heart failure Difficult to evaluate volume status She does have lower extremity edema/lymphedema CT chest did not show any interstitial edema or pleural effusions BNP and troponin elevated-likely demand ischemia Takes acetazolamide and spironolactone at home Had recent GI bug with nausea/vomiting diarrhea for 1 week Cardiology and nephrology consulted/following Chronic hypercapnic/hypoxic respiratory failure Continue supplemental oxygen Continue wearing home CPap Atrial fibrillation on chronic anticoagulation Eliquis stopped d/t decrease in Hgb Sotalol stopped, continue metoprolol Continuous telemetry Elevated troponin Cardiology Following-Suspect this is demand ischemia Troponin trended down, no chest pain continue to monitor on telemetry Sacral wounds Consult wound healing center Pain medications added 09/01 -H/H stable -on 4 LNC, sometimes takes off the oxygen -will continue Cpap -remains confused about situation 09/02 -Some aggitation, decreased PO intake -lethargic and confused -H/H stable, holding Eliquis -continue supportive care -Continue IV iron 09/03 -More oriented this morning -Wore Cpap last night -Awaiting placement 09/04 -rectal bleeding, contacted Dr. Olvera -Hgb 7.6 -more alert and oriented this morning 09/05 -No bleeding today but H/H dropped -Receiving 1 unit PRBC - Await further recs from GI DVT PPX: ELIQUIS being held Code status: Full code Discharge Plan: SNF Plan to discharge in: Greater than 2 days Time Spent Managing Pts Care (In Minutes): 45
[2024-09-05 16:56] LABS: Hematocrit 28.6 % (36.0-45.0); Hemoglobin 9.7 g/dL (12.0-15.0)
[2024-09-06 05:18] LABS: Hematocrit 23.9 % (36.0-45.0); Hemoglobin 7.9 g/dL (12.0-15.0); MCH 31.0 pg (27.0-35.0); MCHC 33.1 g/dL (32.0-36.0); MCV 93.6 fL (80-100); MPV 8.1 fL (7.6-11.3); RBC Red Blood Cell Count 2.56 M/uL (3.86-4.86); White Blood Count 9.50 thou/uL (4.3-10.9)
[2024-09-06 05:20] LABS: Albumin 2.0 g/dL (3.4-5.0); Anion Gap 7.8 mEq/L (5.0-15.0); BUN Blood Urea Nitrogen 26.0 mg/dL (7-18); Glucose Level 144.0 mg/dL (74-106); Potassium 3.8 mEq/L (3.5-5.1)
--- NOTE | 2024-09-06 10:24 | PN ---
Date of Progress Note: 09/06/2024 Subjective: The patient was admitted to the hospital with cellulitis, sepsis. She had hyponatremia with acute kidney injury, recovered. The patient is feeling better. Waiting for placement. Physical Examination: Vital Signs: Blood pressure 100/56, pulse of 66, afebrile. Chest: Clear to auscultation. Heart: S1, S2 regular. Abdomen: Morbidly obese. Could not appreciate any organomegaly. Extremities: Erythema bilateral with venous stasis change. Laboratory Data: WBC 9.5, hemoglobin 7.9. Sodium 140, potassium 3.8, bicarb 29, BUN 26, creatinine 0.7, calcium 8.5, phosphorus 2.2. Current Medications: The patient is on include IV iron, Tylenol, ipratropium, pantoprazole, Zofran, bisacodyl. Assessment And Plan: 1. Acute kidney injury secondary to prerenal, recovered, resolved. 2. Hypokalemia, status post supplement, resolved. 3. Lymphedema. Edema is stable. The patient is on room air, stable. We will continue to monitor. 4. Atrial fibrillation as by Primary. 5. Cellulitis as by Primary. The patient is cleared from the Renal standpoint for discharge planning. Time spent examining the patient [id number] reviewing data lab and the radiology discussing the case with the patient placing order discussing the case with the customer care team coach including hospitalist and nursing staff more than 55-minute MALLIKA Voice ID: [id number] Report ID: [id number] MTDHood
[2024-09-06] MEDS ORDERED: NA CHLORIDE 0.9% 250 ML IV SCH (11:00)
[2024-09-06] MEDS: DIPHENHYDRAMINE 50 MG/ML VIAL IV ONE (12:57)
[2024-09-06] MEDS: ACETAMINOPHEN 500 MG TAB PO ONE (12:57)
[2024-09-06] MEDS: BISACODYL E.C. 5 MG TAB PO ONE (12:57)
[2024-09-06] MEDS: NA CHLORIDE 0.9% 250 ML ONE (12:59)
--- NOTE | 2024-09-06 13:21 | P.PN ---
Date of Service: 09/06/24 Subjective: has been having melena today Also having more bright red blood per rectum with blood clots ROS: 10 point ROS as noted above, otherwise negative Physical exam GEN: awake, conversing well, NAD CV: RRR, lower extremity lymphedema Pulm: nonlabored breathing, on 3 LNC ABD: distended (obese) MSK: Peripheral pulse present Integumentary: Erythema to left lower extremity significant- improved Neuro: Normal speech, normal affect Vitals reviewed Assessment: Melena Chronic Inactive Gastritis Iron deficiency anemia Decreased PO intake Hyponatremia Hyperkalemia Metabolic acidosis Metabolic encephalopathy secondary to above Left lower extremity cellulitis Chronic diastolic congestive heart failure Chronic hypercapnic/hypoxic respiratory failure Atrial fibrillation on chronic anticoagulation Elevated troponin Sacral wounds Plan: Melena Chronic Inactive Gastritis Iron deficiency anemia Rectal bleeding Holding Eliquis since 08/30 Hgb 7.9 this morning Receiving one unit PRBC 09/05, another unit of blood ordered for today 09/06 GI following, EGD following pathology Plan for colonoscopy 09/07 Protonix BID IV Iron daily Decreased PO intake Hyponatremia-resolved Hyperkalemia Metabolic acidosis Metabolic encephalopathy secondary to above nephrology Following Patient takes spironolactone, potassium, acetazolamide at home-on hold for now Downgrade from ICU 08/27 Left lower extremity cellulitis ABX completed cefepime -erythema significantly improved Stopped vancomycin Blood cultures with no growth to date Chronic diastolic congestive heart failure Difficult to evaluate volume status She does have lower extremity edema/lymphedema CT chest did not show any interstitial edema or pleural effusions BNP and troponin elevated-likely demand ischemia Takes acetazolamide and spironolactone at home Had recent GI bug with nausea/vomiting diarrhea for 1 week Cardiology and nephrology consulted/following Stable Chronic hypercapnic/hypoxic respiratory failure Continue supplemental oxygen Continue wearing home CPap Atrial fibrillation on chronic anticoagulation Eliquis stopped d/t decrease in Hgb Sotalol Continuous telemetry Elevated troponin Cardiology Following-Suspect this is demand ischemia Troponin trended down, no chest pain continue to monitor on telemetry Sacral wounds Consult wound healing center Pain medications added Small stage two gluteal wound-continue with daily dressing change with mepilex 09/01 -H/H stable -on 4 LNC, sometimes takes off the oxygen -will continue Cpap -remains confused about situation 09/02 -Some aggitation, decreased PO intake -lethargic and confused -H/H stable, holding Eliquis -continue supportive care -Continue IV iron 09/03 -More oriented this morning -Wore Cpap last night -Awaiting placement 09/04 -rectal bleeding, contacted Dr. Olvera -Hgb 7.6 -more alert and oriented this morning 09/05 -No bleeding today but H/H dropped -Receiving 1 unit PRBC - Await further recs from GI 09/06 -Had more melena, plan for colonscopy tomorrow -another unit PRBC DVT PPX: ELIQUIS being held Code status: Full code Discharge Plan: SNF Plan to discharge in: Greater than 2 days Time Spent Managing Pts Care (In Minutes): 45
[2024-09-06] MEDS: GOLYTELY 4000 ML PO SCH (18:41)
[2024-09-06 22:05] LABS: Hematocrit 22.1 % (36.0-45.0); Hemoglobin 7.5 g/dL (12.0-15.0)
[2024-09-07 05:30] LABS: Hematocrit 23.1 % (36.0-45.0); Hemoglobin 7.7 g/dL (12.0-15.0); MCH 30.9 pg (27.0-35.0); MCHC 33.4 g/dL (32.0-36.0); MCV 92.6 fL (80-100); MPV 7.6 fL (7.6-11.3); RBC Red Blood Cell Count 2.49 M/uL (3.86-4.86); White Blood Count 8.20 thou/uL (4.3-10.9)
[2024-09-07 05:40] LABS: PT Prothrombin Time 12.9 SECONDS (10-13.0); Protime INR 1.14
[2024-09-07 05:52] LABS: ALT/SGPT 17.0 U/L (13-56); AST/SGOT 18.0 U/L (15-37); Albumin 1.9 g/dL (3.4-5.0); Albumin/Globulin Ratio 0.6 (1.1-1.8); Alkaline Phosphatase 61.0 U/L (45-117); Anion Gap 6.7 mEq/L (5.0-15.0); BUN Blood Urea Nitrogen 31.0 mg/dL (7-18); Globulin 3.2 g/dL (2.3-3.5); Glucose Level 132.0 mg/dL (74-106); Potassium 3.7 mEq/L (3.5-5.1)
--- NOTE | 2024-09-07 13:40 | P.PN ---
Subjective Date of Service: 09/07/24 Chief Complaint: Melena, and now hematochezia, anemia Subjective: New changes (Now with hematochezia and anemia. Hgb to 6.9 and transfused to 7.7 now. Refused colonoscopy prep overnight; PCP and RNs and family spoke with her and she now agrees to take prep.) Review of Systems 10-point ROS is otherwise unremarkable General: Weakness, Malaise (Improved.) Physical Examination - Vital Signs Temperature: 98.4 F Blood Pressure: 95/63 Pulse: 79 Respirations: 18 Pulse Ox (%): 99 - Physical Exam General: Alert, In no apparent distress, Oriented x3, Cooperative HEENT: Atraumatic, Normocephalic, PERRLA, EOMI Neck: Supple Respiratory: Normal air movement Cardiovascular: Normal pulses Gastrointestinal: Soft and benign, No tenderness, No rebound, No guarding Neurological: Normal speech, Normal strength at 5/5 x4 extr - Studies Medications List Reviewed: Yes Assessment And Plan - Current Problems (Diagnosis) (1) GIB (gastrointestinal bleeding) Current Visit: Yes Status: Acute (2) Melena Current Visit: Yes Status: Acute (3) Gastritis and duodenitis Current Visit: Yes Status: Acute (4) Multiple gastric erosions Current Visit: Yes Status: Acute (5) Ulcer, gastric, acute Current Visit: Yes Status: Acute (6) Morbid obesity Current Visit: No Status: Acute (7) Hematochezia Current Visit: Yes Status: Acute - Plan REC: 1) continue PPI therapy 2) colonoscopy 3) serial H&Hs and transfuse prn
--- NOTE | 2024-09-07 14:20 | P.PN ---
Date of Service: 09/07/24 Subjective: Refused bowel prep overnight Discussed with patient and daughter at bedside Patient agrees to bowel prep Still having melena ROS: 10 point ROS as noted above, otherwise negative Physical exam GEN: awake, conversing well, NAD CV: RRR, lower extremity lymphedema Pulm: nonlabored breathing, on 3 LNC ABD: distended (obese) MSK: Peripheral pulse present Integumentary: Erythema to left lower extremity significant- improved Neuro: Normal speech, normal affect Vitals reviewed Assessment: Melena Chronic Inactive Gastritis Iron deficiency anemia Decreased PO intake Hyponatremia Hyperkalemia Metabolic acidosis Metabolic encephalopathy secondary to above Left lower extremity cellulitis Chronic diastolic congestive heart failure Chronic hypercapnic/hypoxic respiratory failure Atrial fibrillation on chronic anticoagulation Elevated troponin Sacral wounds Plan: Melena Chronic Inactive Gastritis Iron deficiency anemia Rectal bleeding Holding Eliquis since 08/30 Hgb 7.7 this morning Receiving one unit PRBC 09/05, another unit of blood ordered for today 09/06 GI following, EGD following pathology Plan for colonoscopy 09/08 Refused bowel prep overnight 09/06, discussed with patient and family patient now agreeable for bowel prep and preparation for colonoscopy tomorrow Protonix BID IV Iron daily Decreased PO intake Hyponatremia-resolved Hyperkalemia Metabolic acidosis Metabolic encephalopathy secondary to above nephrology Following Patient takes spironolactone, potassium, acetazolamide at home-on hold for now Downgrade from ICU 08/27 Left lower extremity cellulitis ABX completed cefepime -erythema significantly improved Stopped vancomycin Blood cultures with no growth to date Chronic diastolic congestive heart failure Difficult to evaluate volume status She does have lower extremity edema/lymphedema CT chest did not show any interstitial edema or pleural effusions BNP and troponin elevated-likely demand ischemia Takes acetazolamide and spironolactone at home Had recent GI bug with nausea/vomiting diarrhea for 1 week Cardiology and nephrology consulted/following Stable Chronic hypercapnic/hypoxic respiratory failure Continue supplemental oxygen Continue wearing home CPap Atrial fibrillation on chronic anticoagulation Eliquis stopped d/t decrease in Hgb Sotalol Continuous telemetry Elevated troponin Cardiology Following-Suspect this is demand ischemia Troponin trended down, no chest pain continue to monitor on telemetry Sacral wounds Consult wound healing center Pain medications added Small stage two gluteal wound-continue with daily dressing change with mepilex 530 -H/H stable -on 4 LNC, sometimes takes off the oxygen -will continue Cpap -remains confused about situation 09/02 -Some aggitation, decreased PO intake -lethargic and confused -H/H stable, holding Eliquis -continue supportive care -Continue IV iron 09/03 -More oriented this morning -Wore Cpap last night -Awaiting placement 09/04 -rectal bleeding, contacted Dr. Olvera -Hgb 7.6 -more alert and oriented this morning 09/05 -No bleeding today but H/H dropped -Receiving 1 unit PRBC - Await further recs from GI 09/06 -Had more melena, plan for colonscopy tomorrow -another unit PRBC 09/07 Refused bowel prep overnight Starting bowel prep today Plan for colonoscopy tomorrow DVT PPX: ELIQUIS being held Code status: Full code Discharge Plan: SNF Plan to discharge in: Greater than 2 days Time Spent Managing Pts Care (In Minutes): 45
[2024-09-07 15:32] LABS: Hematocrit 23.6 % (36.0-45.0); Hemoglobin 8.0 g/dL (12.0-15.0)
[2024-09-08 05:21] LABS: Hematocrit 21.5 % (36.0-45.0); Hemoglobin 7.2 g/dL (12.0-15.0); MCH 31.3 pg (27.0-35.0); MCHC 33.5 g/dL (32.0-36.0); MCV 93.4 fL (80-100); MPV 8.0 fL (7.6-11.3); RBC Red Blood Cell Count 2.31 M/uL (3.86-4.86); White Blood Count 8.60 thou/uL (4.3-10.9)
[2024-09-08 05:46] LABS: Albumin 2.0 g/dL (3.4-5.0); Albumin/Globulin Ratio 0.6 (1.1-1.8); Alkaline Phosphatase 62 U/L (45-117); Anion Gap 8.2 mEq/L (5.0-15.0); BUN Blood Urea Nitrogen 28 mg/dL (7-18); Globulin 3.1 g/dL (2.3-3.5); Glucose Level 93 mg/dL (74-106)
[2024-09-08 05:47] LABS: ALT/SGPT < 14 U/L (13-56); AST/SGOT 22 U/L (15-37); Potassium 4.2 mEq/L (3.5-5.1)
[2024-09-08] MEDS: FUROSEMIDE 20 MG TABLET PO SCH (09:00)
--- NOTE | 2024-09-08 09:49 | P.PN ---
Date of Service: 09/08/24 Subjective: Continued to intermittently deny bowel prep but ultimately agreed this morning Finished oral bowel prep in the morning Awaiting colonoscopy later today ROS: 10 point ROS as noted above, otherwise negative Physical exam GEN: awake, conversing well, NAD CV: RRR, lower extremity lymphedema Pulm: nonlabored breathing, on 3 LNC ABD: distended (obese) MSK: Peripheral pulse present Integumentary: Erythema to left lower extremity significant- improved Neuro: Normal speech, normal affect Vitals reviewed Assessment: Melena Chronic Inactive Gastritis Iron deficiency anemia Decreased PO intake Hyponatremia Hyperkalemia Metabolic acidosis Metabolic encephalopathy secondary to above Left lower extremity cellulitis Chronic diastolic congestive heart failure Chronic hypercapnic/hypoxic respiratory failure Atrial fibrillation on chronic anticoagulation Elevated troponin Sacral wounds Plan: Melena Chronic Inactive Gastritis Iron deficiency anemia Rectal bleeding Holding Eliquis since 08/30 Hgb 7.2 this morning Receiving one unit PRBC 09/05, another unit of blood 09/06 HGb 7.2 09/08 will get another unit today GI following, EGD following pathology Plan for colonoscopy 09/08 Protonix BID IV Iron completed Decreased PO intake Hyponatremia-resolved Hyperkalemia Metabolic acidosis Metabolic encephalopathy secondary to above nephrology Following Patient takes spironolactone, potassium, acetazolamide at home Downgrade from ICU 08/27 Left lower extremity cellulitis ABX completed cefepime -erythema significantly improved Stopped vancomycin Blood cultures with no growth to date Chronic diastolic congestive heart failure Difficult to evaluate volume status She does have lower extremity edema/lymphedema CT chest did not show any interstitial edema or pleural effusions BNP and troponin elevated-likely demand ischemia Takes acetazolamide and spironolactone at home Had recent GI bug with nausea/vomiting diarrhea for 1 week Cardiology and nephrology consulted/following Stable Chronic hypercapnic/hypoxic respiratory failure Continue supplemental oxygen Continue wearing home CPap Atrial fibrillation on chronic anticoagulation Eliquis stopped d/t decrease in Hgb Sotalol Continuous telemetry Elevated troponin Cardiology Following-Suspect this is demand ischemia Troponin trended down, no chest pain continue to monitor on telemetry Sacral wounds Consult wound healing center Pain medications added Small stage two gluteal wound-continue with daily dressing change with mepilex 09/01 -H/H stable -on 4 LNC, sometimes takes off the oxygen -will continue Cpap -remains confused about situation 09/02 -Some aggitation, decreased PO intake -lethargic and confused -H/H stable, holding Eliquis -continue supportive care -Continue IV iron 09/03 -More oriented this morning -Wore Cpap last night -Awaiting placement 09/04 -rectal bleeding, contacted Dr. Olvera -Hgb 7.6 -more alert and oriented this morning 09/05 -No bleeding today but H/H dropped -Receiving 1 unit PRBC - Await further recs from GI 09/06 -Had more melena, plan for colonscopy tomorrow -another unit PRBC 09/07 Refused bowel prep overnight Starting bowel prep today Plan for colonoscopy tomorrow DVT PPX: ELIQUIS being held Code status: Full code Discharge Plan: SNF Plan to discharge in: Greater than 2 days Time Spent Managing Pts Care (In Minutes): 45
[2024-09-08] MEDS: MAGNESIUM CITRATE 300 ML BOT PO SCH ×2 (13:00→17:51)
[2024-09-08] MEDS: Ringers Lactate 1,000 ML IV ONE (14:46)
[2024-09-08] MEDS ORDERED: LIDOCAINE 1% MPF 5 ML VIAL ONE (15:17)
[2024-09-08] MEDS: GOLYTELY 4000 ML PO SCH (17:48)
[2024-09-08] MEDS: METOCLOPRAMIDE 10 MG/2mL INJ IV SCH (17:50)
[2024-09-08] MEDS: BISACODYL E.C. 5 MG TAB PO ONE (17:50)
--- NOTE | 2024-09-08 23:31 | PN ---
Date of Progress Note: 09/08/2024 Chief Complaint: Acute kidney injury. Subjective: The patient was admitted to the hospital because of sepsis, cellulitis. She was found t o have hyponatremia, acute kidney injury. Renal function has improved and sodium level gradually sta bilized. The patient prior to the hospitalization was taking multiple medications and diuretics. Di uretic is currently is on hold. Review of Systems: Denies chest pain, palpitation. Physical Examination: Lungs: Clear to auscultation bilaterally. Heart: S1, S2. Abdomen: Soft. Extremities: Erythema bilateral with venostasis changes, chronic dermatitis. Impression And Plan: 1. Acute kidney injury secondary to prerenal azotemia. Renal function improved to baseline. 2. Hypokalemia, status post supplementation. Monitor potassium and magnesium level. 3. Lymphedema. Edema is stable. Avoid excessive diuretic therapy. 4. Atrial fibrillation per primary. 5. Cellulitis. Patient is on antibiotics. NELSY/CARITO Voice ID: [id number] Report ID: [id number]
[2024-09-09 01:00] LABS: Hematocrit 22.6 % (36.0-45.0); Hemoglobin 7.6 g/dL (12.0-15.0)
[2024-09-09 06:59] LABS: Hematocrit 21.2 % (36.0-45.0); Hemoglobin 7.2 g/dL (12.0-15.0); MCH 30.8 pg (27.0-35.0); MCHC 34.0 g/dL (32.0-36.0); MCV 90.5 fL (80-100); MPV 7.4 fL (7.6-11.3); RBC Red Blood Cell Count 2.34 M/uL (3.86-4.86); White Blood Count 9.70 thou/uL (4.3-10.9)
[2024-09-09 07:11] LABS: ALT/SGPT < 14 U/L (13-56); AST/SGOT 17 U/L (15-37); Albumin 2.0 g/dL (3.4-5.0); Albumin/Globulin Ratio 0.8 (1.1-1.8); Alkaline Phosphatase 61 U/L (45-117); Anion Gap 12.4 mEq/L (5.0-15.0); BUN Blood Urea Nitrogen 24 mg/dL (7-18); Globulin 2.6 g/dL (2.3-3.5); Glucose Level 114 mg/dL (74-106); Potassium 3.4 mEq/L (3.5-5.1)
--- NOTE | 2024-09-09 10:16 | P.PN ---
Date of Service: 09/09/24 Subjective: Continued to intermittently deny bowel prep but ultimately agreed this morning Finished oral bowel prep in the morning Awaiting colonoscopy later today ROS: 10 point ROS as noted above, otherwise negative Physical exam GEN: awake, conversing well, NAD CV: RRR, lower extremity lymphedema Pulm: nonlabored breathing, on 3 LNC ABD: distended (obese) MSK: Peripheral pulse present Integumentary: Erythema to left lower extremity significant- improved Neuro: Normal speech, normal affect Vitals reviewed Assessment: Melena Chronic Inactive Gastritis Iron deficiency anemia Decreased PO intake Hyponatremia Hyperkalemia Metabolic acidosis Metabolic encephalopathy secondary to above Left lower extremity cellulitis Chronic diastolic congestive heart failure Chronic hypercapnic/hypoxic respiratory failure Atrial fibrillation on chronic anticoagulation Elevated troponin Sacral wounds Plan: Melena Stercoral colonic ulcers in the distal rectum up to 6 cm with active bleeding Chronic Inactive Gastritis Iron deficiency anemia Holding Eliquis since 08/30 Will receive fourth unit of PRBC today 09/09 Will need repeat colonoscopy today due to poor prep yesterday Protonix BID IV Iron completed Colonoscopy 09/08 demonstrated Colonic ulcers, 5 stercoral ulcers in the distal rectum up to 6 cm with active slow bleeding and deep to the denate line GI recommends taking 2 to 4 tablets of Citrucel per day with a large glass of liquid MiraLAX 1 capful 4 times daily Milk of magnesia 2 tablespoons once or twice a day Follow-up appointment in the GI clinic Serial H&H/transfusion as needed Repeat colonoscopy prep and repeat colonoscopy for today 09/09 Decreased PO intake Hyponatremia-resolved Hyperkalemia Metabolic acidosis Metabolic encephalopathy secondary to above nephrology Following Patient takes spironolactone, potassium, acetazolamide at home Downgrade from ICU 08/27 Left lower extremity cellulitis ABX completed cefepime -erythema significantly improved Stopped vancomycin Blood cultures with no growth to date Chronic diastolic congestive heart failure Difficult to evaluate volume status She does have lower extremity edema/lymphedema CT chest did not show any interstitial edema or pleural effusions BNP and troponin elevated-likely demand ischemia Takes acetazolamide and spironolactone at home Had recent GI bug with nausea/vomiting diarrhea for 1 week Cardiology and nephrology consulted/following Stable Chronic hypercapnic/hypoxic respiratory failure Continue supplemental oxygen Continue wearing home CPap Atrial fibrillation on chronic anticoagulation Eliquis stopped d/t decrease in Hgb Sotalol Continuous telemetry Elevated troponin Cardiology Following-Suspect this is demand ischemia Troponin trended down, no chest pain continue to monitor on telemetry Sacral wounds Consult wound healing center Pain medications added Small stage two gluteal wound-continue with daily dressing change with mepilex 09/01 -H/H stable -on 4 LNC, sometimes takes off the oxygen -will continue Cpap -remains confused about situation 09/02 -Some aggitation, decreased PO intake -lethargic and confused -H/H stable, holding Eliquis -continue supportive care -Continue IV iron 09/03 -More oriented this morning -Wore Cpap last night -Awaiting placement 09/04 -rectal bleeding, contacted Dr. Olvera -Hgb 7.6 -more alert and oriented this morning 09/05 -No bleeding today but H/H dropped -Receiving 1 unit PRBC - Await further recs from GI 09/06 -Had more melena, plan for colonscopy tomorrow -another unit PRBC 09/07 Refused bowel prep overnight Starting bowel prep today Plan for colonoscopy tomorrow 09/08 Underwent colonoscopy with findings of colonic ulceration/stercoral ulcers Received another unit PRBC Poor prep, will need repeat colonoscopy tomorrow 09/09 Repeated prep overnight, requiring another unit of PRBC to total 4 units now Plan for repeat colonoscopy today DVT PPX: ELIQUIS being held Code status: Full code Discharge Plan: SNF Plan to discharge in: Greater than 2 days Time Spent Managing Pts Care (In Minutes): 45
[2024-09-09] MEDS: NA CHLORIDE 0.9% 250 ML IV SCH (12:37)
[2024-09-09] MEDS ORDERED: Phenylephrine HCl 10 MG/ML 1 ML VIAL ONE (15:00)
[2024-09-09] MEDS: EPINEPHRINE 1 MG/ML VIAL ONE (15:22)
[2024-09-09] MEDS ORDERED: GLYCOPYRROLATE 0.2 MG/ML SYR ONE (15:32)
[2024-09-09] MEDS: Ringers Lactate 1,000 ML IV ONE (15:33)
[2024-09-09] MEDS: NA CHLORIDE 0.9% 250 ML ONE (15:38)
[2024-09-09] MEDS ORDERED: NA CHLORIDE 0.9% 250 ML IV SCH (16:00)
[2024-09-09] MEDS: NA CHLORIDE 0.9% 500 ML IV ONE ×2 (17:48→17:51)
[2024-09-09] MEDS: MAGNESIUM HYDROXIDE 8% 30 ML PO SCH (21:00)
[2024-09-09] MEDS: MAGNESIUM CITRATE 300 ML BOT PO ONE (21:00)
[2024-09-09] MEDS: Mupirocin NASAL 2 APPL/1 GM TUBE NAS SCH (21:44)
--- NOTE | 2024-09-09 22:20 | RAD REPORT ---
EXAMINATION: ONE VIEW CHEST XR CLINICAL INDICATION: PICC Line Placement TECHNIQUE: Frontal chest projection is submitted. Examination is limited by patient positioning and t echnique. COMPARISON: No prior exam. FINDINGS: Right-sided PICC line has been placed with tip in SVC. Lungs are grossly clear. The heart is mildly t o moderately enlarged.
--- NOTE | 2024-09-09 22:42 | PN ---
Date of Progress Note: 09/09/2024 Chief Complaint: Acute kidney injury. Subjective: The patient was admitted to the hospital because of sepsis, cellulitis. She had hyponatremia, acute kidney injury. She responded to IV fluids. Hyponatremia resolved and renal function stabilized at baseline. Review of Systems: Denies chest pain, palpitations. Objective: Lungs: Clear to auscultation bilaterally. Heart: S1, S2. Abdomen: Soft. Extremities: Venous stasis changes, chronic dermatitis. Impression And Plan: 1. Acute kidney injury secondary to prerenal azotemia. Continue to monitor fluid balance. IV fluids as needed. 2. Hypokalemia, status post supplementation. Monitor potassium, magnesium and phosphorus. 3. Lymphedema. Edema is stable. Avoid excessive diuretic therapy. 4. Cellulitis. The patient is on antibiotics. NELSY/MODOlena Voice ID: [id number] Report ID: [id number] [id number]
[2024-09-10 04:01] LABS: Hematocrit 27.0 % (36.0-45.0); Hemoglobin 9.4 g/dL (12.0-15.0)
[2024-09-10 05:12] LABS: Hematocrit 27.6 % (36.0-45.0); Hemoglobin 9.6 g/dL (12.0-15.0); MCH 30.1 pg (27.0-35.0); MCHC 34.8 g/dL (32.0-36.0); MCV 86.5 fL (80-100); MPV 7.9 fL (7.6-11.3); RBC Red Blood Cell Count 3.19 M/uL (3.86-4.86); White Blood Count 9.80 thou/uL (4.3-10.9)
[2024-09-10 05:18] LABS: PT Prothrombin Time 12.2 SECONDS (10-13.0); PTT, Activated Partial Thromb 28.3 SECONDS (27.2-37.4); Protime INR 1.07
[2024-09-10 05:33] LABS: AST/SGOT 20 U/L (15-37); Albumin 1.9 g/dL (3.4-5.0); Albumin/Globulin Ratio 0.8 (1.1-1.8); Alkaline Phosphatase 59 U/L (45-117); Anion Gap 8.2 mEq/L (5.0-15.0); BUN Blood Urea Nitrogen 19 mg/dL (7-18); Globulin 2.4 g/dL (2.3-3.5); Glucose Level 125 mg/dL (74-106); Potassium 3.2 mEq/L (3.5-5.1)
[2024-09-10 05:42] LABS: ALT/SGPT < 14 U/L (13-56)
[2024-09-10] MEDS: Ringers Lactate 1,000 ML IV ONE (09:41)
[2024-09-10] MEDS ORDERED: ETOMIDATE 20 MG/10 ML VIAL IV ONE ×2 (10:18→10:53)
[2024-09-10] MEDS ORDERED: LIDOCAINE 1% MPF 5 ML VIAL ONE (10:19)
[2024-09-10] MEDS ORDERED: GLYCOPYRROLATE 0.2 MG/ML SYR ONE (10:23)
[2024-09-10] MEDS ORDERED: FENTANYL CITR 100 MCG/2 ML ONE (10:25)
--- NOTE | 2024-09-10 14:26 | P.PN ---
Date of Service: 09/10/24 Subjective: Still had rectal bleeding overnight Blood pressure in the 90s systolic No other acute events overnight ROS: 10 point ROS as noted above, otherwise negative Physical exam GEN: awake, conversing well, NAD CV: RRR, lower extremity lymphedema Pulm: nonlabored breathing, on 3 LNC ABD: distended (obese) MSK: Peripheral pulse present Integumentary: Erythema to left lower extremity significant- improved, PICC line in place Neuro: Normal speech, normal affect Vitals reviewed Assessment: Melena Stercoral colonic ulcers in the distal rectum up to 6 cm with active bleeding Chronic Inactive Gastritis Iron deficiency anemia Decreased PO intake Hyponatremia Hyperkalemia Metabolic acidosis Metabolic encephalopathy secondary to above Left lower extremity cellulitis Chronic diastolic congestive heart failure Chronic hypercapnic/hypoxic respiratory failure Atrial fibrillation on chronic anticoagulation Elevated troponin Sacral wounds Plan: Melena Stercoral colonic ulcers in the distal rectum up to 6 cm with active bleeding Chronic Inactive Gastritis Iron deficiency anemia Holding Eliquis since 08/30 Protonix BID IV Iron completed Colonoscopy 09/08 demonstrated Colonic ulcers, 5 stercoral ulcers in the distal rectum up to 6 cm with active slow bleeding and deep to the denate line GI recommends taking 2 to 4 tablets of Citrucel per day with a large glass of liquid MiraLAX 1 capful 4 times daily Milk of magnesia 2 tablespoons once or twice a day Follow-up appointment in the GI clinic Serial H&H/transfusion as needed Repeated colonoscopy prep and repeat colonoscopy 09/09 performed Moved to ICU on 09/09 after colonoscopy given soft blood pressures and ongoing GI bleeding Third colonocopy complete 09/10 with findings below small amount of dried blood/clot/liquid in the rectum, multiple medium diverticula without bleeding, multiple stercoral deep 8 mm x 60 mm ulcers in the rectum, the ulcer had residual blood clot present but largely gone. The ulcer produced a stigmata of bleeding. There was also a single deep 7 mm ulcer in the rectum with 2 endoclips present, no further bleeding was noted. Multiple small sized uncomplicated internal hemorrhoids were seen in the rectum that were not actively bleeding. GI recommends clear liquid diet, advance to low residual diet Serial H&H and transfuse as needed Will place diet, monitor H&H Once stabilized will need to discuss with GI possible resumption of Eliquis Decreased PO intake Hyponatremia-resolved Hyperkalemia Metabolic acidosis Metabolic encephalopathy secondary to above nephrology Following Patient takes spironolactone, potassium, acetazolamide at home Left lower extremity cellulitis ABX completed cefepime -erythema significantly improved Stopped vancomycin Blood cultures with no growth to date Chronic diastolic congestive heart failure CT chest did not show any interstitial edema or pleural effusions Takes acetazolamide and spironolactone at home Cardiology and nephrology consulted/following Stable Chronic hypercapnic/hypoxic respiratory failure Continue supplemental oxygen Continue wearing home CPap Atrial fibrillation on chronic anticoagulation Eliquis stopped d/t decrease in Hgb Sotalol Continuous telemetry Elevated troponin Cardiology Following-Suspect this is demand ischemia Troponin trended down, no chest pain continue to monitor on telemetry Sacral wounds Consult wound healing center Pain medications added Small stage two gluteal wound-continue with daily dressing change with mepilex 09/01 -H/H stable -on 4 LNC, sometimes takes off the oxygen -will continue Cpap -remains confused about situation 09/02 -Some aggitation, decreased PO intake -lethargic and confused -H/H stable, holding Eliquis -continue supportive care -Continue IV iron 09/03 -More oriented this morning -Wore Cpap last night -Awaiting placement 09/04 -rectal bleeding, contacted Dr. Olvera -Hgb 7.6 -more alert and oriented this morning 09/05 -No bleeding today but H/H dropped -Receiving 1 unit PRBC - Await further recs from GI 09/06 -Had more melena, plan for colonscopy tomorrow -another unit PRBC 09/07 Refused bowel prep overnight Starting bowel prep today Plan for colonoscopy tomorrow 09/08 Underwent colonoscopy with findings of colonic ulceration/stercoral ulcers Received another unit PRBC Poor prep, will need repeat colonoscopy tomorrow 09/09 Repeated prep overnight, requiring another unit of PRBC to total 6 units now Plan for repeat colonoscopy today-perfored Moved to ICU after for low blood pressure and ongoing GIB Received blood transfusions 09/10 Went for repeat colonoscopy Findings above H/H stable so far, trend H/H Clear liquid diet adv to low residual DVT PPX: ELIQUIS being held Code status: Full code Discharge Plan: SNF Plan to discharge in: Greater than 2 days Time Spent Managing Pts Care (In Minutes): 45
[2024-09-11 04:18] LABS: Hematocrit 22.9 % (36.0-45.0); Hemoglobin 8.0 g/dL (12.0-15.0); MCH 30.5 pg (27.0-35.0); MCHC 35.2 g/dL (32.0-36.0); MCV 86.8 fL (80-100); MPV 7.4 fL (7.6-11.3); RBC Red Blood Cell Count 2.63 M/uL (3.86-4.86); White Blood Count 7.60 thou/uL (4.3-10.9)
[2024-09-11 04:47] LABS: AST/SGOT 20 U/L (15-37); Albumin 1.7 g/dL (3.4-5.0); Albumin/Globulin Ratio 0.8 (1.1-1.8); Alkaline Phosphatase 57 U/L (45-117); Anion Gap 8.8 mEq/L (5.0-15.0); BUN Blood Urea Nitrogen 18 mg/dL (7-18); Globulin 2.2 g/dL (2.3-3.5); Glucose Level 97 mg/dL (74-106); Potassium 2.8 mEq/L (3.5-5.1)
[2024-09-11 04:48] LABS: ALT/SGPT < 14 U/L (13-56)
[2024-09-11] MEDS: Ringers Lactate 1,000 ML IV SCH (07:53)
[2024-09-11] MEDS: Ringers Lactate 500 ML IV ONE (07:53)
[2024-09-11] MEDS: KCL 20 MEQ/100 mL IVPB 20 MEQ/100 ML BAG IV SCH ×2 (09:19→16:58)
--- NOTE | 2024-09-11 10:11 | P.PN ---
Date of Service: 09/11/24 Subjective: Less bleeding noted overnight Patient reports right upper extremity swelling Tolerating clear liquids so far ROS: 10 point ROS as noted above, otherwise negative Physical exam GEN: awake, conversing well, NAD CV: RRR, lower extremity lymphedema Pulm: nonlabored breathing, on 3 LNC ABD: distended (obese) MSK: Peripheral pulse present Integumentary: Erythema to left lower extremity significant- improved, PICC line in place, RUE swelling noted Neuro: Normal speech, normal affect Vitals reviewed Assessment: Melena Stercoral colonic ulcers in the distal rectum up to 6 cm with active bleeding Chronic Inactive Gastritis Acute blood loss anemia Hyponatremia Hyperkalemia-now with hypokalemia Metabolic acidosis Metabolic encephalopathy secondary to above Left lower extremity cellulitis Chronic diastolic congestive heart failure Chronic hypercapnic/hypoxic respiratory failure Atrial fibrillation on chronic anticoagulation Elevated troponin Sacral wounds Plan: Melena Stercoral colonic ulcers in the distal rectum up to 6 cm with active bleeding Chronic Inactive Gastritis Acute blood loss anemia Holding Eliquis since 08/30 Protonix BID IV Iron completed Colonoscopy 09/08 demonstrated Colonic ulcers, 5 stercoral ulcers in the distal rectum up to 6 cm with active slow bleeding and deep to the denate line GI recommends taking 2 to 4 tablets of Citrucel per day with a large glass of liquid MiraLAX 1 capful 4 times daily Milk of magnesia 2 tablespoons once or twice a day Follow-up appointment in the GI clinic Serial H&H/transfusion as needed Repeated colonoscopy prep and repeat colonoscopy 09/09 performed Moved to ICU on 09/09 after colonoscopy given soft blood pressures and ongoing GI bleeding Third colonocopy complete 09/10 with findings below small amount of dried blood/clot/liquid in the rectum, multiple medium diverticula without bleeding, multiple stercoral deep 8 mm x 60 mm ulcers in the rectum, the ulcer had residual blood clot present but largely gone. The ulcer produced a stigmata of bleeding. There was also a single deep 7 mm ulcer in the rectum with 2 endoclips present, no further bleeding was noted. Multiple small sized uncomplicated internal hemorrhoids were seen in the rectum that were not actively bleeding. GI recommends clear liquid diet, advance to low residual diet Serial H&H and transfuse as needed-HGb 8 AM 09/11, recheck in afternoon Will place diet, monitor H&H Once stabilized will need to discuss with GI possible resumption of Eliquis PT eval, will need SNF for DC plan, needs re auth BP still soft, likely secondary to hypovolemia from bowel prep and bleeding Hyponatremia-resolved Hyperkalemia-now with hypokalemia Metabolic acidosis-resolved Metabolic encephalopathy secondary to above-resolved nephrology Following Patient takes spironolactone, potassium, acetazolamide at home Left lower extremity cellulitis ABX completed cefepime -erythema significantly improved Stopped vancomycin Blood cultures with no growth to date Chronic diastolic congestive heart failure CT chest did not show any interstitial edema or pleural effusions Takes acetazolamide and spironolactone at home Cardiology and nephrology consulted/following Stable Chronic hypercapnic/hypoxic respiratory failure Continue supplemental oxygen Continue wearing home CPap Atrial fibrillation on chronic anticoagulation Eliquis stopped d/t decrease in Hgb Sotalol Continuous telemetry Elevated troponin Cardiology Following-Suspect this is demand ischemia Troponin trended down, no chest pain continue to monitor on telemetry Sacral wounds Consult wound healing center Pain medications added Small stage two gluteal wound-continue with daily dressing change with mepilex 09/01 -H/H stable -on 4 LNC, sometimes takes off the oxygen -will continue Cpap -remains confused about situation 09/02 -Some aggitation, decreased PO intake -lethargic and confused -H/H stable, holding Eliquis -continue supportive care -Continue IV iron 09/03 -More oriented this morning -Wore Cpap last night -Awaiting placement 09/04 -rectal bleeding, contacted Dr. Olvera -Hgb 7.6 -more alert and oriented this morning 09/05 -No bleeding today but H/H dropped -Receiving 1 unit PRBC - Await further recs from GI 09/06 -Had more melena, plan for colonscopy tomorrow -another unit PRBC 09/07 Refused bowel prep overnight Starting bowel prep today Plan for colonoscopy tomorrow 09/08 Underwent colonoscopy with findings of colonic ulceration/stercoral ulcers Received another unit PRBC Poor prep, will need repeat colonoscopy tomorrow 09/09 Repeated prep overnight, requiring another unit of PRBC to total 6 units now Plan for repeat colonoscopy today-perfored Moved to ICU after for low blood pressure and ongoing GIB Received blood transfusions 09/10 Went for repeat colonoscopy Findings above H/H stable so far, trend H/H Clear liquid diet adv to low residual 6/9 Blood pressure still soft-suspect this is secondary to combination of repeated bowel prep, hypovolemia and acute blood loss Giving IV fluid bolus, starting IV fluids x 2 L Clear liquid diet, advance to low residual as tolerated Eliquis still on hold Right upper extremity edema noted, instructed to elevate right upper extremity and will obtain ultrasound to rule out DVT Restart PT, will need off for SNF when stable for discharge DVT PPX: ELIQUIS being held Code status: Full code Discharge Plan: SNF Plan to discharge in: Greater than 2 days Time Spent Managing Pts Care (In Minutes): 45
--- NOTE | 2024-09-11 13:55 | P.PN ---
Subjective Date of Service: 09/11/24 Chief Complaint: Melena, and now hematochezia, anemia Subjective: New changes (Hgb 9 to 8 overnight. No further significant bleeding noted, possibly dilutional.) Physical Examination - Vital Signs Temperature: 97.0 F Blood Pressure: 85/38 Pulse: 67 Respirations: 11 Pulse Ox (%): 98 - Studies Medications List Reviewed: Yes Assessment And Plan - Current Problems (Diagnosis) (1) GIB (gastrointestinal bleeding) Current Visit: Yes Status: Acute (2) Melena Current Visit: Yes Status: Acute (3) Gastritis and duodenitis Current Visit: Yes Status: Acute (4) Multiple gastric erosions Current Visit: Yes Status: Acute (5) Ulcer, gastric, acute Current Visit: Yes Status: Acute (6) Morbid obesity Current Visit: No Status: Acute (7) Hematochezia Current Visit: Yes Status: Acute - Plan REC: 1) continue PPI therapy 2) monitor for further bleeding 3) serial H&Hs and transfuse prn
[2024-09-11] MEDS: ENSURE CLEAR 200 ML CAN PO SCH (14:00)
[2024-09-11] MEDS: ALBUMIN HUM 5% 500 ML IV SCH (14:31)
[2024-09-11] MEDS ORDERED: NA CHLORIDE 0.9% 250 ML IV SCH (15:00)
--- NOTE | 2024-09-11 16:12 | RAD REPORT ---
EXAMINATION: UPPER EXTREMITY VENOUS UNILATE CLINICAL INDICATION: Female, 63 years old.RUE swelling RIGHT TECHNIQUE: Multiplanar grayscale and color Doppler images were obtained in a upper extremity venous ultrasound. Spectral analysis of the Doppler waveforms were performed. COMPARISON: No prior exams FINDINGS: The internal jugular vein, subclavian vein, axillary vein, basilic vein, brachial vein, cephalic vein , radial vein, and ulnar vein were evaluated and patent. The brachial vein, cephalic vein, radial vein, and ulnar veins were compressible and patent. IMPRESSION: No evidence of deep venous thrombosis in the right upper extremity.
[2024-09-11] MEDS: NOREPINEPHRINE BITARTRATE/D5W 4 MG/250 ML BAG IV SCH (16:25)
[2024-09-12] MEDS ORDERED: D5W IV ONE (01:09)
[2024-09-12] MEDS ORDERED: NOREPINEPHRINE BITARTRATE IV ONE (01:09)
--- NOTE | 2024-09-12 03:07 | PN ---
Date of Progress Note: 09/11/2024 Chief Complaint: Acute kidney injury. Subjective: The patient was admitted to ICU after she underwent colonoscopy. The patient primarily was admitted for acute kidney injury with hyponatremia. Renal function stabilized with IV fluids, an d hyponatremia resolved. Currently, the patient is on IV normal saline for hypotension. She has bor derline hypotension. She does not require pressors and is asymptomatic. Review of Systems: Denies chest pain, palpitation. Physical Examination: LUNGS: Clear to auscultation bilaterally. HEART: S1-S2. ABDOMEN: Soft. EXTREMITIES: Venostasis changes, chronic dermatitis. Impression And Plan: 1. Acute kidney injury secondary to prerenal azotemia. Patient will continue IV fluids to prevent pr erenal azotemia secondary to hypotension and hypovolemia. 2. Hypokalemia, status post supplementation. Monitor potassium, magnesium and phosphorus. 3. Lymphedema. Avoid excessive diuretic therapy. 4. Cellulitis. Continue antibiotics. NELSY/CARITO Voice ID: [id number] Report ID: [id number]
[2024-09-12 05:22] LABS: Hematocrit 28.4 % (36.0-45.0); Hemoglobin 9.6 g/dL (12.0-15.0); MCH 29.8 pg (27.0-35.0); MCHC 33.9 g/dL (32.0-36.0); MCV 87.9 fL (80-100); MPV 7.8 fL (7.6-11.3); RBC Red Blood Cell Count 3.23 M/uL (3.86-4.86); White Blood Count 11.90 thou/uL (4.3-10.9)
[2024-09-12 05:50] LABS: AST/SGOT 23 U/L (15-37); Albumin 2.2 g/dL (3.4-5.0); Albumin/Globulin Ratio 0.8 (1.1-1.8); Alkaline Phosphatase 64 U/L (45-117); Anion Gap 7.7 mEq/L (5.0-15.0); BUN Blood Urea Nitrogen 15 mg/dL (7-18); Globulin 2.7 g/dL (2.3-3.5); Glucose Level 155 mg/dL (74-106); Potassium 3.7 mEq/L (3.5-5.1)
[2024-09-12 06:02] LABS: ALT/SGPT < 14 U/L (13-56)
[2024-09-12] MEDS: KCL 20 MEQ/100 mL IVPB 20 MEQ/100 ML BAG IV SCH (06:18)
--- NOTE | 2024-09-12 06:51 | P.PN ---
Date of Service: 09/12/24 Subjective: H/H stable this morning tolerating full liquid diet, added Ensure max protein today ROS: 10 point ROS as noted above, otherwise negative Physical exam GEN: awake, NAD CV: RRR, S1 S2 present Pulm: Symmetrical chest wall movement, on 2 LNC ABD: distended (obese), nontender MSK: Peripheral pulse present Integumentary: Erythema to left lower extremity significant- improved, PICC line in place, RUE swelling noted Neuro: Normal speech, normal affect Vitals reviewed Assessment: Melena Stercoral colonic ulcers in the distal rectum up to 6 cm with active bleeding Chronic Inactive Gastritis Acute blood loss anemia Hyponatremia Hyperkalemia-now with hypokalemia Metabolic acidosis Metabolic encephalopathy secondary to above Left lower extremity cellulitis Chronic diastolic congestive heart failure Chronic hypercapnic/hypoxic respiratory failure Atrial fibrillation on chronic anticoagulation Elevated troponin Sacral wounds Plan: Melena Stercoral colonic ulcers in the distal rectum up to 6 cm with active bleeding Chronic Inactive Gastritis Acute blood loss anemia Holding Eliquis since 08/30 GI will give recommendations when it is safe to restart Protonix BID IV Iron completed Colonoscopy 09/08 demonstrated Colonic ulcers, 5 stercoral ulcers in the distal rectum up to 6 cm with active slow bleeding and deep to the denate line GI recommends taking 2 to 4 tablets of Citrucel per day with a large glass of liquid MiraLAX 1 capful 4 times daily Milk of magnesia 2 tablespoons once or twice a day Follow-up appointment in the GI clinic Serial H&H/transfusion as needed Repeated colonoscopy prep and repeat colonoscopy 09/09 performed Moved to ICU on 09/09 after colonoscopy given soft blood pressures and ongoing GI bleeding Third colonocopy complete 09/10 with findings below small amount of dried blood/clot/liquid in the rectum, multiple medium diverticula without bleeding, multiple stercoral deep 8 mm x 60 mm ulcers in the rectum, the ulcer had residual blood clot present but largely gone. The ulcer produced a stigmata of bleeding. There was also a single deep 7 mm ulcer in the rectum with 2 endoclips present, no further bleeding was noted. Multiple small sized uncomplicated internal hemorrhoids were seen in the rectum that were not actively bleeding. GI recommends clear liquid diet, advance to low residual diet Serial H&H and transfuse as needed-HGb 8 AM 09/11, recheck in afternoon Will place diet, monitor H&H Once stabilized will need to discuss with GI possible resumption of Eliquis PT eval, will need SNF for DC plan, needs re auth BP still soft, likely secondary to hypovolemia from bowel prep and bleeding Hyponatremia-resolved Hyperkalemia-now with hypokalemia Metabolic acidosis-resolved Metabolic encephalopathy secondary to above-resolved nephrology Following Patient takes spironolactone, potassium, acetazolamide at home Left lower extremity cellulitis ABX completed cefepime -erythema significantly improved Stopped vancomycin Blood cultures with no growth to date Chronic diastolic congestive heart failure CT chest did not show any interstitial edema or pleural effusions Takes acetazolamide and spironolactone at home Cardiology and nephrology consulted/following Stable Chronic hypercapnic/hypoxic respiratory failure Continue supplemental oxygen Continue wearing home CPap Atrial fibrillation on chronic anticoagulation Eliquis stopped d/t decrease in Hgb Sotalol Continuous telemetry Elevated troponin Cardiology Following-Suspect this is demand ischemia Troponin trended down, no chest pain continue to monitor on telemetry Sacral wounds Consult wound healing center Pain medications added Small stage two gluteal wound-continue with daily dressing change with mepilex 09/01 -H/H stable -on 4 LNC, sometimes takes off the oxygen -will continue Cpap -remains confused about situation 09/02 -Some aggitation, decreased PO intake -lethargic and confused -H/H stable, holding Eliquis -continue supportive care -Continue IV iron 09/03 -More oriented this morning -Wore Cpap last night -Awaiting placement 09/04 -rectal bleeding, contacted Dr. Olvera -Hgb 7.6 -more alert and oriented this morning 09/05 -No bleeding today but H/H dropped -Receiving 1 unit PRBC - Await further recs from GI 09/06 -Had more melena, plan for colonscopy tomorrow -another unit PRBC 09/07 Refused bowel prep overnight Starting bowel prep today Plan for colonoscopy tomorrow 09/08 Underwent colonoscopy with findings of colonic ulceration/stercoral ulcers Received another unit PRBC Poor prep, will need repeat colonoscopy tomorrow 09/09 Repeated prep overnight, requiring another unit of PRBC to total 6 units now Plan for repeat colonoscopy today-perfored Moved to ICU after for low blood pressure and ongoing GIB Received blood transfusions 09/10 Went for repeat colonoscopy Findings above H/H stable so far, trend H/H Clear liquid diet adv to low residual 09/11 Blood pressure still soft-suspect this is secondary to combination of repeated bowel prep, hypovolemia and acute blood loss Giving IV fluid bolus, starting IV fluids x 2 L Clear liquid diet, advance to low residual as tolerated Eliquis still on hold Right upper extremity edema noted, instructed to elevate right upper extremity and will obtain ultrasound to rule out DVT Restart PT, will need off for SNF when stable for discharge 09/12 Tolerating Full liquid diet H/H stable Right upper extremity ultrasound reports: "No evidence of deep venous thrombosis in the right upper extremity." Blood pressure stabilized on pressors DVT PPX: ELIQUIS being held Code status: Full code Discharge Plan: SNF Plan to discharge in: Greater than 2 days Time Spent Managing Pts Care (In Minutes): 40
--- NOTE | 2024-09-12 10:23 | PN ---
Date of Progress Note: 09/12/2024 Subjective: The patient was admitted to the hospital with acute kidney injury, hypernatremia, hypona tremia, and edema. The patient had cellulitis. The patient was treated, hyponatremia resolved. Physical Examination: Vital Signs: When I saw the patient, blood pressure 92/59, pulse of 53. Chest: Clear to auscultation. Heart: S1, S2. Regular. Abdomen: Soft, morbidly obese. Extremities: Venous stasis change with lymphedema. Neurologic: Alert. No focality. Laboratory Data: WBC 11.9, hemoglobin 9.6. Sodium 134, potassium 3.7, bicarb 29, BUN 15, creatinine 0.9, calcium 7.7, albumin 2.2, corrected calcium is 9.3. Current Medications: The patient is on include albuterol, Levophed, LR. Assessment And Plan: 1. Acute kidney injury secondary to prerenal, recovered, resolved. 2. Hyponatremia, depletional, resolved. Keep holding the diuresis. 3. Hypertension. Currently, blood pressure on the lower side. Keep holding the diuresis. We will f ollow up. I am going to go ahead and decrease her sotalol to 40 mg and we will follow up. 4. Anemia, status post colonoscopy. We will follow up with Primary. MALLIKA Voice ID: [id number] Report ID: [id number]
[2024-09-12] MEDS: SOTALOL HCL 80 MG TAB PO SCH (18:00)
[2024-09-12] MEDS: D5W 250 ML IV ONE (18:12)
[2024-09-12] MEDS: ONDANSETRON 4 MG/2 ML VIAL IV PRN (18:41)
[2024-09-12] MEDS: NOREPINEPHRINE 8 MG in D5W 250 ML IV SCH (18:51)
[2024-09-12] MEDS: NOREPINEPHRINE 4 MG/4 ML VIAL ONE (18:51)
[2024-09-12] MEDS: BUDESONIDE 0.5 MG/2 ML NEB NEB ONE (23:40)
[2024-09-12] MEDS: WATER FOR INJ,STERILE 10 ML ONE (23:41)
[2024-09-12] MEDS: METHYLPREDNISOLONE 125 MG INJ IV ONE (23:42)
[2024-09-13] MEDS: LORazepam 2 MG/ML VIAL IV ONE (01:46)
[2024-09-13 05:09] LABS: Hematocrit 33.0 % (36.0-45.0); Hemoglobin 11.1 g/dL (12.0-15.0); MCH 29.7 pg (27.0-35.0); MCHC 33.6 g/dL (32.0-36.0); MCV 88.4 fL (80-100); MPV 7.8 fL (7.6-11.3); RBC Red Blood Cell Count 3.73 M/uL (3.86-4.86); White Blood Count 11.30 thou/uL (4.3-10.9)
[2024-09-13 05:29] LABS: AST/SGOT 28 U/L (15-37); Albumin 2.3 g/dL (3.4-5.0); Albumin/Globulin Ratio 0.8 (1.1-1.8); Alkaline Phosphatase 85 U/L (45-117); Anion Gap 8.6 mEq/L (5.0-15.0); BUN Blood Urea Nitrogen 11 mg/dL (7-18); Globulin 3.0 g/dL (2.3-3.5); Glucose Level 242 mg/dL (74-106); Potassium 4.6 mEq/L (3.5-5.1)
[2024-09-13 05:31] LABS: ALT/SGPT < 14 U/L (13-56)
[2024-09-13] MEDS: NOREPINEPHRINE 4 MG/4 ML VIAL ONE (05:39)
[2024-09-13] MEDS: NOREPINEPHRINE BITARTRATE/D5W 4 MG/250 ML KIT IV ONE (05:39)
[2024-09-13] MEDS: MIDODRINE HCL 5 MG TABLET PO SCH ×2 (08:19→14:26)
--- NOTE | 2024-09-13 10:14 | PN ---
Date of Progress Note: 09/13/2024 Subjective: The patient was admitted to the hospital with acute kidney injury and hyponatremia secondary to depletional over diuresis. The patient had cellulitis with septic shock. The patient after colonoscopy readmitted to the ICU. The patient is on Levophed on the last 48 hours. The patient is still asymptomatic. The patient was started on midodrine. Physical Examination: General: When I saw the patient, the patient is sitting in the bed comfortable, not in any distress. Vital Signs: Blood pressure 112/80, pulse of 88. The patient had good urine output of 2300. Chest: Decreased entry, bilateral base. Heart: S1, S2. Systolic murmur. Abdomen: Morbidly obese. Could not appreciate any organomegaly. Extremities: Lymphedema with venous stasis change, bilateral. Neurologic: Alert. Pleasantly confused. Laboratory Data: WBC 11.3, hemoglobin 11.1. Sodium 133, potassium 4.6, bicarb 29, BUN 11, creatinine 0.8, calcium 8.4, albumin 2.3, corrected calcium is 9.7. Current Medications: The patient is on include midodrine 10 mg b.i.d., albuterol, Levophed, sotalol 40 b.i.d., lorazepam, Ensure. Assessment And Plan: 1. Acute kidney injury secondary to prerenal, toxic ATN secondary to poor perfusion, septic shock. The patient recovered, resolved. 2. Hyponatremia secondary to over diuresis, resolved. 3. Septic shock. Currently, blood pressure maintained on midodrine and Levophed. I am going to go ahead and start tapering Levophed for goal systolic blood pressure above 95 as the patient continued to have significant sign of perfusion. We will follow up with Primary. Continue midodrine. I am going to go ahead and send for cortisol level and we will follow up the patient. Increase midodrine to t.i.d. Time spent examining the patient [id number] reviewing data lab and the radiology placing order discussing the case with the patient discussing the case with the team members including hospitalist and nursing staff more than 55 minutes MALLIKA Voice ID: [id number] Report ID: [id number] KHADIJAH
--- NOTE | 2024-09-13 11:01 | P.PN ---
Subjective Date of Service: 09/13/24 Chief Complaint: Melena, hematochezia, anemia, hypotension Subjective: Improving (No further GI bleeding noted. Hgb increasing 8.2 to 9.6 to 11.1. Hypotension on Levophed and low K. Tolerating po. No stool in 2 days.) Review of Systems 10-point ROS is otherwise unremarkable General: Weakness, Malaise, Other (Hypotension) Physical Examination - Vital Signs Temperature: 97.8 F Blood Pressure: 105/73 Pulse: 79 Respirations: 23 Pulse Ox (%): 100 - Physical Exam General: Alert, Oriented x3, Cooperative HEENT: Atraumatic, Normocephalic, EOMI Neck: Supple Cardiovascular: Normal pulses, Edema (LEs) Gastrointestinal: Soft and benign, No tenderness, No masses, No rebound, No guarding Neurological: Normal speech - Studies Medications List Reviewed: Yes Assessment And Plan - Current Problems (Diagnosis) (1) GIB (gastrointestinal bleeding) Current Visit: Yes Status: Acute (2) Melena Current Visit: Yes Status: Acute (3) Gastritis and duodenitis Current Visit: Yes Status: Acute (4) Multiple gastric erosions Current Visit: Yes Status: Acute (5) Ulcer, gastric, acute Current Visit: Yes Status: Acute (6) Morbid obesity Current Visit: No Status: Acute (7) Hematochezia Current Visit: Yes Status: Acute - Plan REC: 1) continue PPI therapy 2) monitor for further bleeding 3) serial H&Hs and transfuse prn 4) agree with check of Cortisol ([id number] despite resolved GI bleed with increasing Hgb and low K)
--- NOTE | 2024-09-13 15:23 | P.PN ---
Date of Service: 09/13/24 Subjective: on the Cpap during morning rounds, difficulty breathing last night unable to answer questions Consulted with clergy for a visit per daughters request ROS: 10 point ROS as noted above, otherwise negative Physical exam GEN: awake, confused CV: NSR, S1 S2 present Pulm: Symmetrical chest wall movement, on 2 LNC/ CPAP at night ABD: distended (obese), nontender on palpation MSK: Peripheral pulse present Integumentary: Erythema to left lower extremity- improved, PICC line in place, RUE swelling noted Neuro: confused Vitals reviewed Assessment: Melena Stercoral colonic ulcers in the distal rectum up to 6 cm with active bleeding Chronic Inactive Gastritis Acute blood loss anemia Hyponatremia Hyperkalemia-now with hypokalemia Metabolic acidosis Metabolic encephalopathy secondary to above Left lower extremity cellulitis Chronic diastolic congestive heart failure Chronic hypercapnic/hypoxic respiratory failure Atrial fibrillation on chronic anticoagulation Elevated troponin Sacral wounds Plan: Melena Stercoral colonic ulcers in the distal rectum up to 6 cm with active bleeding Chronic Inactive Gastritis Acute blood loss anemia Holding Eliquis since 08/30 GI will give recommendations when it is safe to restart Protonix BID IV Iron completed Colonoscopy 09/08 demonstrated Colonic ulcers, 5 stercoral ulcers in the distal rectum up to 6 cm with active slow bleeding and deep to the denate line GI recommends taking 2 to 4 tablets of Citrucel per day with a large glass of liquid MiraLAX 1 capful 4 times daily Milk of magnesia 2 tablespoons once or twice a day Follow-up appointment in the GI clinic Serial H&H/transfusion as needed Repeated colonoscopy prep and repeat colonoscopy 09/09 performed Moved to ICU on 09/09 after colonoscopy given soft blood pressures and ongoing GI bleeding Third colonocopy complete 09/10 with findings below small amount of dried blood/clot/liquid in the rectum, multiple medium diverticula without bleeding, multiple stercoral deep 8 mm x 60 mm ulcers in the rectum, the ulcer had residual blood clot present but largely gone. The ulcer produced a stigmata of bleeding. There was also a single deep 7 mm ulcer in the rectum with 2 endoclips present, no further bleeding was noted. Multiple small sized uncomplicated internal hemorrhoids were seen in the rectum that were not actively bleeding. GI recommends clear liquid diet, advance to low residual diet Serial H&H and transfuse as needed-HGb 8 AM 09/11, recheck in afternoon Will place diet, monitor H&H Once stabilized will need to discuss with GI possible resumption of Eliquis PT eval, will need SNF for DC plan, needs re auth BP still soft, likely secondary to hypovolemia from bowel prep and bleeding Hyponatremia-resolved Hyperkalemia-now with hypokalemia Metabolic acidosis-resolved Metabolic encephalopathy secondary to above-resolved nephrology Following Patient takes spironolactone, potassium, acetazolamide at home Left lower extremity cellulitis ABX completed cefepime -erythema significantly improved Stopped vancomycin Blood cultures with no growth to date Chronic diastolic congestive heart failure CT chest did not show any interstitial edema or pleural effusions Takes acetazolamide and spironolactone at home Cardiology and nephrology consulted/following Stable Chronic hypercapnic/hypoxic respiratory failure Continue supplemental oxygen Continue wearing home CPap Atrial fibrillation on chronic anticoagulation Eliquis stopped d/t decrease in Hgb Sotalol Continuous telemetry Elevated troponin Cardiology Following-Suspect this is demand ischemia Troponin trended down, no chest pain continue to monitor on telemetry Sacral wounds Consult wound healing center Pain medications added Small stage two gluteal wound-continue with daily dressing change with mepilex 09/01 -H/H stable -on 4 LNC, sometimes takes off the oxygen -will continue Cpap -remains confused about situation 09/02 -Some aggitation, decreased PO intake -lethargic and confused -H/H stable, holding Eliquis -continue supportive care -Continue IV iron 09/03 -More oriented this morning -Wore Cpap last night -Awaiting placement 09/04 -rectal bleeding, contacted Dr. Olvera -Hgb 7.6 -more alert and oriented this morning 09/05 -No bleeding today but H/H dropped -Receiving 1 unit PRBC - Await further recs from GI 09/06 -Had more melena, plan for colonscopy tomorrow -another unit PRBC 09/07 Refused bowel prep overnight Starting bowel prep today Plan for colonoscopy tomorrow 09/08 Underwent colonoscopy with findings of colonic ulceration/stercoral ulcers Received another unit PRBC Poor prep, will need repeat colonoscopy tomorrow 09/09 Repeated prep overnight, requiring another unit of PRBC to total 6 units now Plan for repeat colonoscopy today-perfored Moved to ICU after for low blood pressure and ongoing GIB Received blood transfusions 09/10 Went for repeat colonoscopy Findings above H/H stable so far, trend H/H Clear liquid diet adv to low residual 09/11 Blood pressure still soft-suspect this is secondary to combination of repeated bowel prep, hypovolemia and acute blood loss Giving IV fluid bolus, starting IV fluids x 2 L Clear liquid diet, advance to low residual as tolerated Eliquis still on hold Right upper extremity edema noted, instructed to elevate right upper extremity and will obtain ultrasound to rule out DVT Restart PT, will need off for SNF when stable for discharge 09/12 Tolerating Full liquid diet H/H stable Right upper extremity ultrasound reports: "No evidence of deep venous thrombosis in the right upper extremity." Blood pressure stabilized on pressors 09/13 Continue with Full liquid diet levophed adjusted, added midodrine TID H/H stable, no further bleeding noted Dr. Ramey and Dr. Madison following DVT PPX: ELIQUIS being held Code status: Full code Discharge Plan: SNF Plan to discharge in: Greater than 2 days Time Spent Managing Pts Care (In Minutes): 46
[2024-09-14] MEDS: NOREPINEPHRINE 4 MG/4 ML VIAL ONE (05:05)
[2024-09-14] MEDS: NOREPINEPHRINE BITARTRATE/D5W 4 MG/250 ML KIT IV ONE (05:05)
[2024-09-14 08:13] LABS: Absolute Lymphocytes (CBC) 1.6 K/uL (0.7-4.9); Hematocrit 30.5 % (36.0-45.0); Hemoglobin 10.1 g/dL (12.0-15.0); MCH 29.7 pg (27.0-35.0); MCHC 33.2 g/dL (32.0-36.0); MCV 89.2 fL (80-100); MPV 8.1 fL (7.6-11.3); Nucleated RBC Absolute Count 0.0 (0-0); Nucleated Red Blood Cells % 0.2 % (0-0); RBC Red Blood Cell Count 3.42 M/uL (3.86-4.86); White Blood Count 16.70 thou/uL (4.3-10.9)
[2024-09-14 08:31] LABS: AST/SGOT 23 U/L (15-37); Albumin 2.0 g/dL (3.4-5.0); Albumin/Globulin Ratio 0.7 (1.1-1.8); Alkaline Phosphatase 81 U/L (45-117); Anion Gap 9.9 mEq/L (5.0-15.0); BUN Blood Urea Nitrogen 16 mg/dL (7-18); Globulin 2.9 g/dL (2.3-3.5); Glucose Level 147 mg/dL (74-106); Potassium 4.9 mEq/L (3.5-5.1)
[2024-09-14 08:49] LABS: ALT/SGPT < 14 U/L (13-56)
[2024-09-14] MEDS ORDERED: POLYETHYL GLY 3350 17 GM/DOSE PO PRN (09:00)
[2024-09-14] MEDS: ALBUMIN HUMAN 25% 100 ML IV ONE (11:21)
--- NOTE | 2024-09-14 12:50 | P.PN ---
Subjective Date of Service: 09/14/24 Chief Complaint: Melena, and now hematochezia, anemia Subjective: New changes (No GI bleeding noted. Tolerating [place] diet. Hgb 11 to 10 overnight. No stools for days. Miralax prn only. Cortisol down to 4.5 this morning. Still on Levophed.) Physical Examination - Vital Signs Temperature: 97 F Blood Pressure: 73/39 Pulse: 77 Respirations: 18 Pulse Ox (%): 100 - Studies Medications List Reviewed: Yes Assessment And Plan - Current Problems (Diagnosis) (1) GIB (gastrointestinal bleeding) Current Visit: Yes Status: Acute (2) Melena Current Visit: Yes Status: Acute (3) Gastritis and duodenitis Current Visit: Yes Status: Acute (4) Multiple gastric erosions Current Visit: Yes Status: Acute (5) Ulcer, gastric, acute Current Visit: Yes Status: Acute (6) Morbid obesity Current Visit: No Status: Acute (7) Hematochezia Current Visit: Yes Status: Acute - Plan REC: 1) continue PPI therapy 2) monitor for further bleeding 3) serial H&Hs and transfuse prn 4) start Miralax tid 5) await steroids for possible adrenal insufficiency
--- NOTE | 2024-09-14 12:57 | ECHO ---
HEIGHT: 5 ft 2 in WEIGHT: 284 lb 0 oz DATE OF STUDY: 09/14/[address]: Anshul Allan MD 2-DIMENSIONAL: YES M.MODE: YES DOPPLER: YES COLOR FLOW: YES TDS: YES PORTABLE: YES DEFINITY: NO BUBBLE STUDY: NO DIAGNOSIS: HYPOTENSION CARDIAC HISTORY: CATHERIZATION: NO SURGERY: NO PROSTHETIC VALVE: NO PACEMAKER: NO MEASUREMENTS (cm) DIASTOLIC (NORMALS) SYSTOLIC (NORMALS) IVSd 1.1 (0.6-1.2) LA Diam 2.9 (1.9-4.0) LVEF 30-35% LVIDd 5.7 (3.5-5.7) LVIDs 5.0 (2.0-3.5) %FS 12% LVPWd 1.2 (0.6-1.2) Ao Diam 2.7 (2.0-3.7) 2 DIMENSIONAL ASSESSMENT: RIGHT ATRIUM: NORMAL LEFT ATRIUM: NORMAL RIGHT VENTRICLE: NORMAL LEFT VENTRICLE: MILDLY DILATED TRICUSPID VALVE: MILD TRICUSPID REGURGITATION MITRAL VALVE: TRACE MITRAL REGURGITATION PULMONIC VALVE: NOT SEEN AORTIC VALVE: TRACE AORTIC REGURGITATION PERICARDIAL EFFUSION: NONE AORTIC ROOT: NORMAL LEFT VENTRICULAR WALL MOTION: MID INFEROSEPTAL, APICAL WALL AKINESIS. DOPPLER/COLOR FLOW: DIASTOLIC DYSFUNCTION. COMMENTS: 1. MODERATELY REDUCED LEFT VENTRICULAR SYSTOLIC FUNCTION. LEFT VENTRICULAR EJECTION FRACTION 30-35%. WALL MOTION ABNORMALITIES STATED ABOVE. 2. DIASTOLIC DYSFUNCTION. TECHNOLOGIST: GEM MERCADO
[2024-09-14] MEDS: POLYETHYL GLY 3350 17 GM/DOSE PO SCH (13:01)
--- NOTE | 2024-09-14 16:38 | P.PN ---
Date of Service: 09/14/24 Subjective: Lethargic, on oxygen, levophed decreased today ROS: 10 point ROS as noted above, otherwise negative Physical exam GEN: awake, confused CV: S1 S2 present, NSR Pulm: Symmetrical chest wall movement, on 2 LNC/ CPAP at night ABD: distended (obese), hypoactive bowel sounds MSK: Peripheral pulse present Integumentary: Erythema to left lower extremity- improved, PICC line in place, RUE swelling noted Neuro: confused Vitals reviewed Assessment: Melena Stercoral colonic ulcers in the distal rectum up to 6 cm with active bleeding Chronic Inactive Gastritis Acute blood loss anemia Hyponatremia Hyperkalemia-now with hypokalemia Metabolic acidosis Metabolic encephalopathy secondary to above Left lower extremity cellulitis Chronic diastolic congestive heart failure Chronic hypercapnic/hypoxic respiratory failure Atrial fibrillation on chronic anticoagulation Elevated troponin Sacral wounds Plan: Melena Stercoral colonic ulcers in the distal rectum up to 6 cm with active bleeding Chronic Inactive Gastritis Acute blood loss anemia Holding Eliquis since 08/30 GI will give recommendations when it is safe to restart Protonix BID IV Iron completed Colonoscopy 09/08 demonstrated Colonic ulcers, 5 stercoral ulcers in the distal rectum up to 6 cm with active slow bleeding and deep to the denate line GI recommends taking 2 to 4 tablets of Citrucel per day with a large glass of liquid MiraLAX 1 capful 4 times daily Milk of magnesia 2 tablespoons once or twice a day Follow-up appointment in the GI clinic Serial H&H/transfusion as needed Repeated colonoscopy prep and repeat colonoscopy 09/09 performed Moved to ICU on 09/09 after colonoscopy given soft blood pressures and ongoing GI bleeding Third colonocopy complete 09/10 with findings below small amount of dried blood/clot/liquid in the rectum, multiple medium diverticula without bleeding, multiple stercoral deep 8 mm x 60 mm ulcers in the rectum, the ulcer had residual blood clot present but largely gone. The ulcer produced a stigmata of bleeding. There was also a single deep 7 mm ulcer in the rectum with 2 endoclips present, no further bleeding was noted. Multiple small sized uncomplicated internal hemorrhoids were seen in the rectum that were not actively bleeding. GI recommends clear liquid diet, advance to low residual diet Serial H&H and transfuse as needed-HGb 8 AM 09/11, recheck in afternoon Will place diet, monitor H&H Once stabilized will need to discuss with GI possible resumption of Eliquis PT eval, will need SNF for DC plan, needs re auth BP still soft, likely secondary to hypovolemia from bowel prep and bleeding Hyponatremia-resolved Hyperkalemia-now with hypokalemia Metabolic acidosis-resolved Metabolic encephalopathy secondary to above-resolved nephrology Following Patient takes spironolactone, potassium, acetazolamide at home Left lower extremity cellulitis ABX completed cefepime -erythema significantly improved Stopped vancomycin Blood cultures with no growth to date Chronic diastolic congestive heart failure CT chest did not show any interstitial edema or pleural effusions Takes acetazolamide and spironolactone at home Cardiology and nephrology consulted/following Stable Chronic hypercapnic/hypoxic respiratory failure Continue supplemental oxygen Continue wearing home CPap Atrial fibrillation on chronic anticoagulation Eliquis stopped d/t decrease in Hgb Sotalol Continuous telemetry Elevated troponin Cardiology Following-Suspect this is demand ischemia Troponin trended down, no chest pain continue to monitor on telemetry Sacral wounds Consult wound healing center Pain medications added Small stage two gluteal wound-continue with daily dressing change with mepilex 09/01 -H/H stable -on 4 LNC, sometimes takes off the oxygen -will continue Cpap -remains confused about situation 09/02 -Some aggitation, decreased PO intake -lethargic and confused -H/H stable, holding Eliquis -continue supportive care -Continue IV iron 09/03 -More oriented this morning -Wore Cpap last night -Awaiting placement 09/04 -rectal bleeding, contacted Dr. Olvera -Hgb 7.6 -more alert and oriented this morning 09/05 -No bleeding today but H/H dropped -Receiving 1 unit PRBC - Await further recs from GI 09/06 -Had more melena, plan for colonscopy tomorrow -another unit PRBC 09/07 Refused bowel prep overnight Starting bowel prep today Plan for colonoscopy tomorrow 09/08 Underwent colonoscopy with findings of colonic ulceration/stercoral ulcers Received another unit PRBC Poor prep, will need repeat colonoscopy tomorrow 09/09 Repeated prep overnight, requiring another unit of PRBC to total 6 units now Plan for repeat colonoscopy today-perfored Moved to ICU after for low blood pressure and ongoing GIB Received blood transfusions 09/10 Went for repeat colonoscopy Findings above H/H stable so far, trend H/H Clear liquid diet adv to low residual 09/11 Blood pressure still soft-suspect this is secondary to combination of repeated bowel prep, hypovolemia and acute blood loss Giving IV fluid bolus, starting IV fluids x 2 L Clear liquid diet, advance to low residual as tolerated Eliquis still on hold Right upper extremity edema noted, instructed to elevate right upper extremity and will obtain ultrasound to rule out DVT Restart PT, will need off for SNF when stable for discharge 09/12 Tolerating Full liquid diet H/H stable Right upper extremity ultrasound reports: "No evidence of deep venous thrombosis in the right upper extremity." Blood pressure stabilized on pressors 09/13 Continue with Full liquid diet levophed adjusted, added midodrine TID H/H stable, no further bleeding noted Dr. Ramey and Dr. Madison following 09/14 Leukocytosis- cefepime/flagyl started Blood culture pending Steroids for adrenal insufficiency Echocardiogram reports EF 30 to 35%, mild tricuspid regurgitation, trace mitral and aortic regurgitation, diastolic dysfunction Continue with midodrine and levophed for blood pressure control DVT PPX: ELIQUIS being held Code status: Full code Discharge Plan: SNF Plan to discharge in: Greater than 2 days Time Spent Managing Pts Care (In Minutes): 44
[2024-09-14] MEDS: METRONIDAZOLE 500mg IVPB 500 MG/100 ML BAG IV SCH (16:55)
--- NOTE | 2024-09-14 17:05 | PN ---
Date of Progress Note: 09/14/2024 Subjective: This patient was admitted to the hospital with sepsis. The patient had acute kidney injury secondary to poor perfusion ATN. Patient had anemia, had colonoscopy. After colonoscopy, patient had been Levophed dependent. Physical Examination: Vital Signs: When I saw the patient, blood pressure 73/93, pulse of 77. Chest: Decreased entry in bilateral base. Heart: S1, S2. Regular. Abdomen: Morbidly obese. Could not appreciate any organomegaly. Extremities: Erythema bilateral. Venous stasis change. Laboratory Data: WBC 16.7, hemoglobin 10.1. Sodium 133, potassium 4.9, bicarb 29, BUN 16, creatinine 0.8, calcium 8.1. Cortisol originally was 18, today the repeat down to 4. Current Medications: The patient on include sotalol, resume Levophed, breathing treatment, albumin, thiamine. Assessment And Plan: 1. Acute kidney injury secondary to toxic ATN, poor perfusion ATN, recovered, resolved. We will continue to monitor. Keep holding any diuresis. 2. Hyponatremia, depletional, resolved. Keep holding diuresis. 3. Possible septic shock/adrenal insufficiency. I am going to start the patient on dexamethasone. We will repeat cortisol level tomorrow. We will send for panculture and we will start the patient on antibiotic. We will discuss with Dr. Allan regarding panculture and we will follow up. 4. Anemia, status post EGD. Currently hemoglobin stable. We will follow up. 5. Cellulitis, bilateral/septic shock, complicated with acute kidney injury. Target organ. As above, we will start antibiotic and will follow up. Resume Levophed. Time spent examining the patient [id number] reviewing data lab and the radiology placing order discussing the case with the patient discussing the case with the team members including hospitalist and nursing staff more than 55 minutes MALLIKA Voice ID: [id number] Report ID: [id number] MTDHood
[2024-09-14] MEDS: CEFEPIME 2 GM in NA CHLORIDE 0.9% 100 ML IV SCH (20:24)
[2024-09-14 21:42] LABS: Sqamous Epithelial <5 /HPF (None Seen); Urine Crystals Unidentified Moderate /HPF (None Seen); Urine Culture Reflex Order REFLEXED; Urine Microscopic Reflex YN ORDER UMIC; Urine WBC Clump Many /HPF (None Seen)
[2024-09-15 05:43] LABS: Absolute Lymphocytes (CBC) 0.7 K/uL (0.7-4.9); Hematocrit 26.4 % (36.0-45.0); Hemoglobin 8.9 g/dL (12.0-15.0); MCH 29.9 pg (27.0-35.0); MCHC 33.8 g/dL (32.0-36.0); MCV 88.5 fL (80-100); MPV 8.0 fL (7.6-11.3); Nucleated RBC Absolute Count 0.0 (0-0); Nucleated Red Blood Cells % 0.1 % (0-0); RBC Red Blood Cell Count 2.98 M/uL (3.86-4.86); White Blood Count 6.20 thou/uL (4.3-10.9)
[2024-09-15 05:51] LABS: Anion Gap 7.0 mEq/L (5.0-15.0); BUN Blood Urea Nitrogen 18.0 mg/dL (7-18); Glucose Level 162.0 mg/dL (74-106); Potassium 5.0 mEq/L (3.5-5.1)
[2024-09-15 06:43] LABS: Blood Morphology Comment NOT SEEN (NOT SEEN); Differential Total Cells Count 100; Segmented Neutrophils 86 % (40-80)
[2024-09-15] MEDS: EPINEPHrine 1 MG/10 ML SYR ONE (16:28)
[2024-09-15 16:55] LABS: Absolute Lymphocytes (CBC) 2.6 K/uL (0.7-4.9); Hematocrit 29.0 % (36.0-45.0); Hemoglobin 9.5 g/dL (12.0-15.0); MCH 29.3 pg (27.0-35.0); MCHC 32.8 g/dL (32.0-36.0); MCV 89.2 fL (80-100); MPV 8.2 fL (7.6-11.3); Nucleated RBC Absolute Count 0.0 (0-0); Nucleated Red Blood Cells % 0.1 % (0-0); RBC Red Blood Cell Count 3.25 M/uL (3.86-4.86); White Blood Count 8.80 thou/uL (4.3-10.9)
[2024-09-15 17:19] LABS: ALT/SGPT 15.0 U/L (13-56); AST/SGOT 22.0 U/L (15-37); Albumin 2.2 g/dL (3.4-5.0); Albumin/Globulin Ratio 0.8 (1.1-1.8); Alkaline Phosphatase 72.0 U/L (45-117); Anion Gap 6.0 mEq/L (5.0-15.0); BUN Blood Urea Nitrogen 18.0 mg/dL (7-18); Globulin 2.7 g/dL (2.3-3.5); Glucose Level 158.0 mg/dL (74-106); Magnesium 1.7 mg/dL (1.6-2.4); Potassium 5.0 mEq/L (3.5-5.1); Thyroid Stimulating Hormone 1.18 uIU/mL (0.358-3.740)
--- NOTE | 2024-09-15 17:22 | RAD REPORT ---
EXAMINATION: ONE VIEW CHEST XR CLINICAL INDICATION: picc line position TECHNIQUE: Frontal chest projection is submitted. Examination is limited by patient positioning and t echnique. COMPARISON: 09/09/2024 FINDINGS: Right-sided PICC line has tip in the SVC. Moderate bilateral pulmonary opacities compatible with pulm onary edema or pneumonia. The heart is moderately enlarged.
[2024-09-15] MEDS: NA CHLORIDE 0.9% 250 ML IV ONE (17:30)
[2024-09-15] MEDS: ALPRAZOLAM 0.25 MG TABLET PO PRN (19:31)
--- NOTE | 2024-09-15 23:27 | P.PN ---
Date of Service: 09/15/24 Subjective: Awake and conversing well, coloring ROS: 10 point ROS as noted above, otherwise negative Physical exam GEN: AAO x 3 CV: NSR Pulm: nonlabored breathing on 2 LNC/ CPAP at night ABD: distended (obese), hypoactive bowel sounds MSK: edema present to BLE Integumentary: Erythema to left lower extremity- improved, PICC line in place, RUE swelling noted Neuro: Normal speech Vitals reviewed Assessment: Melena Stercoral colonic ulcers in the distal rectum up to 6 cm with active bleeding Chronic Inactive Gastritis Acute blood loss anemia Hyponatremia Hyperkalemia-now with hypokalemia Metabolic acidosis Metabolic encephalopathy secondary to above Left lower extremity cellulitis Chronic diastolic congestive heart failure Chronic hypercapnic/hypoxic respiratory failure Atrial fibrillation on chronic anticoagulation Elevated troponin Sacral wounds Plan: Melena Stercoral colonic ulcers in the distal rectum up to 6 cm with active bleeding Chronic Inactive Gastritis Acute blood loss anemia Holding Eliquis since 08/30 GI will give recommendations when it is safe to restart Protonix BID IV Iron completed Colonoscopy 09/08 demonstrated Colonic ulcers, 5 stercoral ulcers in the distal rectum up to 6 cm with active slow bleeding and deep to the denate line GI recommends taking 2 to 4 tablets of Citrucel per day with a large glass of liquid MiraLAX 1 capful 4 times daily Milk of magnesia 2 tablespoons once or twice a day Follow-up appointment in the GI clinic Serial H&H/transfusion as needed Repeated colonoscopy prep and repeat colonoscopy 09/09 performed Moved to ICU on 09/09 after colonoscopy given soft blood pressures and ongoing GI bleeding Third colonocopy complete 09/10 with findings below small amount of dried blood/clot/liquid in the rectum, multiple medium diverticula without bleeding, multiple stercoral deep 8 mm x 60 mm ulcers in the rectum, the ulcer had residual blood clot present but largely gone. The ulcer produced a stigmata of bleeding. There was also a single deep 7 mm ulcer in the rectum with 2 endoclips present, no further bleeding was noted. Multiple small sized uncomplicated internal hemorrhoids were seen in the rectum that were not actively bleeding. GI recommends clear liquid diet, advance to low residual diet Serial H&H and transfuse as needed-HGb 8 AM 09/11, recheck in afternoon Will place diet, monitor H&H Once stabilized will need to discuss with GI possible resumption of Eliquis PT eval, will need SNF for DC plan, needs re auth BP still soft, likely secondary to hypovolemia from bowel prep and bleeding Hyponatremia-resolved Hyperkalemia-now with hypokalemia Metabolic acidosis-resolved Metabolic encephalopathy secondary to above-resolved nephrology Following Patient takes spironolactone, potassium, acetazolamide at home Left lower extremity cellulitis ABX completed cefepime -erythema significantly improved Stopped vancomycin Blood cultures with no growth to date Chronic diastolic congestive heart failure CT chest did not show any interstitial edema or pleural effusions Takes acetazolamide and spironolactone at home Cardiology and nephrology consulted/following Stable Chronic hypercapnic/hypoxic respiratory failure Continue supplemental oxygen Continue wearing home CPap Atrial fibrillation on chronic anticoagulation Eliquis stopped d/t decrease in Hgb Sotalol Continuous telemetry Elevated troponin Cardiology Following-Suspect this is demand ischemia Troponin trended down, no chest pain continue to monitor on telemetry Sacral wounds Consult wound healing center Pain medications added Small stage two gluteal wound-continue with daily dressing change with mepilex 09/01 -H/H stable -on 4 LNC, sometimes takes off the oxygen -will continue Cpap -remains confused about situation 09/02 -Some aggitation, decreased PO intake -lethargic and confused -H/H stable, holding Eliquis -continue supportive care -Continue IV iron 09/03 -More oriented this morning -Wore Cpap last night -Awaiting placement 09/04 -rectal bleeding, contacted Dr. Olvera -Hgb 7.6 -more alert and oriented this morning 09/05 -No bleeding today but H/H dropped -Receiving 1 unit PRBC - Await further recs from GI 09/06 -Had more melena, plan for colonscopy tomorrow -another unit PRBC 09/07 Refused bowel prep overnight Starting bowel prep today Plan for colonoscopy tomorrow 09/08 Underwent colonoscopy with findings of colonic ulceration/stercoral ulcers Received another unit PRBC Poor prep, will need repeat colonoscopy tomorrow 09/09 Repeated prep overnight, requiring another unit of PRBC to total 6 units now Plan for repeat colonoscopy today-perfored Moved to ICU after for low blood pressure and ongoing GIB Received blood transfusions 09/10 Went for repeat colonoscopy Findings above H/H stable so far, trend H/H Clear liquid diet adv to low residual 6/9 Blood pressure still soft-suspect this is secondary to combination of repeated bowel prep, hypovolemia and acute blood loss Giving IV fluid bolus, starting IV fluids x 2 L Clear liquid diet, advance to low residual as tolerated Eliquis still on hold Right upper extremity edema noted, instructed to elevate right upper extremity and will obtain ultrasound to rule out DVT Restart PT, will need off for SNF when stable for discharge 09/12 Tolerating Full liquid diet H/H stable Right upper extremity ultrasound reports: "No evidence of deep venous thrombosis in the right upper extremity." Blood pressure stabilized on pressors 09/13 Continue with Full liquid diet levophed adjusted, added midodrine TID H/H stable, no further bleeding noted Dr. Ramey and Dr. Madison following 09/14 Leukocytosis- cefepime/flagyl started Blood culture pending Steroids for adrenal insufficiency Echocardiogram reports EF 30 to 35%, mild tricuspid regurgitation, trace mitral and aortic regurgitation, diastolic dysfunction Continue with midodrine and levophed for blood pressure control 09/15 Continues to require Levophed Continue midodrine Follow urine culture Dexamethasone every 8 hours Flagyl started DVT PPX: ELIQUIS being held Code status: Full code Discharge Plan: SNF Plan to discharge in: Greater than 2 days Time Spent Managing Pts Care (In Minutes): 44 <Adriana Kessler - Last Filed: 09/15/24 23:23> I agree with above plan of care as documented by Checo Reilly. Patient seen and examined independently. She developed bradycardia and hypotension, systolic blood pressure down to the 80s, heart rate down to the 30s. Remained awake and asymptomatic. She states that there was nothing wrong with her. Patient given a dose of epinephrine which helped improve her heart rate and blood pressure. Levophed drip titrated up. Blood work repeated, lactic acid elevated. Patient given 250 NS bolus. Concern for sepsis, patient started on IV cefepime and vancomycin. Monitor closely in the ICU. Critical care time spent managing hypotension and bradycardia was about 42 minutes. <jase casper - Last Filed: 09/16/24 18:28>
--- NOTE | 2024-09-15 23:30 | PN ---
Date of Progress Note: 09/15/2024 Chief Complaint: Acute kidney injury. Subjective: The patient was admitted to the hospital because of sepsis. Subsequently, she developed ATN, nonoliguric. Renal function gradually improved. Currently, patient was admitted to ICU. After colonoscopy, she is on Levophed. Today, she developed arrhythmia. Review of Systems: The patient denies complaints. Physical Examination: Respiratory: Normal respiratory effort. Abdomen: Obese, soft. Extremities: Slight edema. Impression And Plan: 1. Acute kidney injury secondary to toxic acute tubular necrosis and poor perfusion. Renal function improved. Acute kidney injury resolved. 2. Hyponatremia, depletional, resolved. Continue diuretics as needed. 3. Possible septic shock, adrenal insufficiency. The patient is on dexamethasone. Monitor renal function and blood pressure. Further recommendation from primary team. 4. Anemia, status post EGD. Currently, hemoglobin is stable. Monitor labs. 5. Cellulitis, septic shock, complicated with acute kidney injury. Continue antibiotics , avoid nephrotoxic medications, avoid IV contrast. 6. Recommend Cardiology consultation for cardiac arrhythmia. NELSY/CARITO Voice ID: [id number] Report ID: [id number] MTDHood
[2024-09-16] MEDS: TRAMADOL HCL 50 MG TAB PO PRN (01:31)
[2024-09-16 05:38] LABS: Absolute Lymphocytes (CBC) 1.0 K/uL (0.7-4.9); Hematocrit 27.8 % (36.0-45.0); Hemoglobin 9.4 g/dL (12.0-15.0); MCH 29.7 pg (27.0-35.0); MCHC 33.7 g/dL (32.0-36.0); MCV 88.0 fL (80-100); MPV 7.6 fL (7.6-11.3); Nucleated RBC Absolute Count 0.0 (0-0); Nucleated Red Blood Cells % 0.1 % (0-0); RBC Red Blood Cell Count 3.16 M/uL (3.86-4.86); White Blood Count 8.10 thou/uL (4.3-10.9)
[2024-09-16 05:43] LABS: Anion Gap 8.7 mEq/L (5.0-15.0); BUN Blood Urea Nitrogen 21.0 mg/dL (7-18); Glucose Level 145.0 mg/dL (74-106); Magnesium 1.6 mg/dL (1.6-2.4); Potassium 4.7 mEq/L (3.5-5.1)
[2024-09-16] MEDS ORDERED: MAGNESIUM SULFATE 1 gm IVPB 1 GM/100 ML BAG IV ONE (07:00)
[2024-09-16] MEDS: MAGNESIUM SULFATE 1 gm IVPB 1 GM/100 ML BAG IV ONE (11:23)
--- NOTE | 2024-09-16 13:12 | P.PN ---
Subjective Date of Service: 09/16/24 Chief Complaint: Melena, and now hematochezia, anemia Subjective: Improving (Improving, off on IV pressors now on Dexamethasone bid. Tolerating soft diet. Patient and RNs report one stool this morning on Miralax. Hgb stable in the 9-10 range. No GI bleeding noted here in the ICU.) Review of Systems General: Weakness (Improved. ), Malaise (Improved. ) Physical Examination - Vital Signs Temperature: 97.4 F Blood Pressure: 102/84 Pulse: 61 Respirations: 15 Pulse Ox (%): 100 - Physical Exam General: Alert, In no apparent distress, Oriented x3, Cooperative HEENT: Atraumatic, Normocephalic, PERRLA, EOMI Neck: Supple Respiratory: Normal air movement Cardiovascular: Normal pulses, Edema (LEs) Gastrointestinal: Soft and benign, No tenderness, No rebound, No guarding Neurological: Normal speech - Studies Medications List Reviewed: Yes Assessment And Plan - Current Problems (Diagnosis) (1) GIB (gastrointestinal bleeding) Current Visit: Yes Status: Acute (2) Melena Current Visit: Yes Status: Acute (3) Gastritis and duodenitis Current Visit: Yes Status: Acute (4) Multiple gastric erosions Current Visit: Yes Status: Acute (5) Ulcer, gastric, acute Current Visit: Yes Status: Acute (6) Morbid obesity Current Visit: No Status: Acute (7) Hematochezia Current Visit: Yes Status: Acute - Plan REC: 1) continue PPI therapy 2) monitor for further bleeding 3) serial H&Hs and transfuse prn 4) continue Miralax tid 5) continue Dexamethasone bid
--- NOTE | 2024-09-16 13:37 | P.PN ---
Subjective Date of Service: 09/16/24 Chief Complaint: Melena, and now hematochezia, anemia Patient report poor sleep from anxiety and panic last night. She had an episode of bradycardia with heart rate down to the 30s and hypotension yesterday in the evening. Levophed drip rate was increased and sotalol discontinued after discussion with cardiology. Heart rate and blood pressure have improved however patient reports anxiety and looks anxious. No recorded fever. Physical Examination - Vital Signs Temperature: 97.4 F Blood Pressure: 102/84 Pulse: 61 Respirations: 15 Pulse Ox (%): 100 - Studies Medications List Reviewed: Yes Assessment And Plan - Plan Physical examination General: Alert and oriented x3, NAD, looks anxious. HEENT: Conjunctiva not pale, anicteric sclera Neck: Supple, no elevated JVD Heart: Heart sounds 1 and 2 normal, regular rhythm, normal rate, bilateral lower extremity edema. Lungs: Clear to auscultation bilaterally, diminished breath sounds bilaterally, no rhonchi or crackles. Abdomen: Soft, nondistended, nontender, normal bowel sounds. Extremities: No tenderness, no deformity Skin: Normal skin turgor, sacral decubitus ulcer. Neuro: No focal motor deficit. Normal speech. Psychiatry: Anxious, no agitation. Assessment: Melena Stercoral colonic ulcers in the distal rectum up to 6 cm with active bleeding Chronic Inactive Gastritis Acute blood loss anemia Hyponatremia Hyperkalemia-now with hypokalemia Metabolic acidosis Metabolic encephalopathy secondary to above Left lower extremity cellulitis Chronic diastolic congestive heart failure Chronic hypercapnic/hypoxic respiratory failure Atrial fibrillation on chronic anticoagulation Elevated troponin Sacral wounds Plan: Melena Stercoral colonic ulcers in the distal rectum up to 6 cm with active bleeding Chronic Inactive Gastritis Acute blood loss anemia Hypotension Patient was receiving Eliquis for A-fib. Eliquis discontinued due to rectal bleeding Continue Protonix BID Patient completed IV iron supplementation Patient seen by GI Dr. Olvera, colonoscopy done x 3 and reports colonic ulcers, 5 stercoral ulcers in the distal rectum up to 6 cm which showed evidence of bleeding. It also reported small sized uncomplicated internal hemorrhoids. Status post 7 units PRBC transfusion GI recommends taking 2 to 4 tablets of Citrucel per day with a large glass of liquid MiraLAX 1 capful 4 times daily Milk of magnesia 2 tablespoons once or twice a day Serial H&H and transfusion as needed Currently not actively bleeding She is currently tolerating soft diet Hemoglobin has been stable Continue PT. Echocardiogram shows EF of 30 to 35% Wean off Levophed as tolerated. Patient restarted on antibiotics-IV cefepime and vancomycin given concern for sepsis. Hyponatremia-resolved Hyperkalemia-now with hypokalemia Metabolic acidosis-resolved Metabolic encephalopathy secondary to above-resolved Adrenal insufficiency nephrology Following Patient takes spironolactone, potassium, acetazolamide at home Patient started on IV dexamethasone Wean off Levophed as possible Left lower extremity cellulitis Blood cultures with no growth to date Patient completed antibiotics. Acute on chronic combined systolic and diastolic congestive heart failure CT chest did not show any interstitial edema or pleural effusions Takes acetazolamide and spironolactone at home Cardiology and nephrology consulted/following Stable Patient is off diuretics Monitor for volume overload improved with IV Lasix prn. Wean off oxygen as tolerated Chronic hypercapnic/hypoxic respiratory failure Continue supplemental oxygen Continue wearing home CPap Atrial fibrillation on chronic anticoagulation Eliquis stopped d/t decrease in Hgb Sotalol discontinued due to profound bradycardia with hypotension. Cardiology is following Continuous telemetry Elevated troponin Cardiology Following Elevated troponin deemed secondary to demand ischemia. Sacral wounds Small stage two gluteal wound-continue with daily dressing change with mepilex. Anxiety Xanax as needed. DVT PPX: SCD Code status: Full code Discharge Plan: SNF
[2024-09-16] MEDS: MIDODRINE HCL 5 MG TABLET PO SCH (13:47)
[2024-09-16] MEDS ORDERED: ALPRAZOLAM 0.25 MG TABLET PO SCH (14:00)
--- NOTE | 2024-09-16 14:45 | PN ---
Date of Progress Note: 09/16/2024 Subjective: This patient was admitted with cellulitis, hypernatremia and acute kidney injury. The p atient developed septic shock with adrenal crisis. The patient was initiated on Decadron. Blood pre ssure stabilized. Patient was weaned from Levophed. Physical Examination: Vital Signs: Blood pressure 102/84, pulse of 60, afebrile. Chest: Decreased entry in bilateral base. Heart: S1, S2. Regular. Systolic murmur. Abdomen: Morbidly obese. Could not appreciate any organomegaly. Extremities: Lymphedema. Venous stasis change bilateral. Laboratory Data: WBC 8, hemoglobin 9.4. Sodium 134, potassium 4.7, bicarb 28, BUN 21, creatinine 0. 9, calcium 7.8, phosphorus 2.8, magnesium 1.6. Current Medications: The patient on include cefepime, metronidazole, midodrine 10 mg t.i.d., alprazo rizvi, dexamethasone 5 mg b.i.d. Assessment And Plan: 1. Acute kidney injury secondary to prerenal, recovered, resolved. 2. Hypernatremia, resolved. 3. Adrenal crisis. Continue Decadron. We will follow up with primary. 4. Septic shock secondary to cellulitis. Continue current antibiotic. We will follow up with primsergey y. 5. Hypomagnesemia. We will supplement. GILBERTO/CARITO Voice ID: [id number] Report ID: [id number]
[2024-09-17 05:47] LABS: Absolute Lymphocytes (CBC) 0.7 K/uL (0.7-4.9); Hematocrit 25.1 % (36.0-45.0); Hemoglobin 8.3 g/dL (12.0-15.0); MCH 29.9 pg (27.0-35.0); MCHC 33.3 g/dL (32.0-36.0); MCV 89.9 fL (80-100); MPV 8.0 fL (7.6-11.3); Nucleated RBC Absolute Count 0.0 (0-0); Nucleated Red Blood Cells % 0.1 % (0-0); RBC Red Blood Cell Count 2.79 M/uL (3.86-4.86); White Blood Count 6.10 thou/uL (4.3-10.9)
[2024-09-17 06:02] LABS: Anion Gap 7.8 mEq/L (5.0-15.0); BUN Blood Urea Nitrogen 27.0 mg/dL (7-18); Glucose Level 122.0 mg/dL (74-106); Magnesium 1.9 mg/dL (1.6-2.4); Potassium 4.8 mEq/L (3.5-5.1)
--- NOTE | 2024-09-17 10:57 | PN ---
Date of Progress Note: 09/17/2024 Subjective: The patient was admitted to the hospital with cellulitis, septic shock. The patient developed acute kidney injury secondary to prerenal. The patient also developed hypernatremia, treated, recovered. Kidney function normalized. The patient after colonoscopy developed shock again, required Levophed. Workup showed adrenal insufficiency. Previous cortisol level was within normal limit. The patient was started on dexamethasone. Kidney function continued to be stable. Blood pressure stabilized. The patient weaned from Levophed for the last 48 hours with good urine output. Physical Examination: Vital Signs: Blood pressure 106/65, pulse of 87. Chest: Clear to auscultation. Heart: S1, S2 regular. Abdomen: Morbidly obese. Extremities: Venous stasis change, bilateral. No erythema. Laboratory Data: WBC 6.1, hemoglobin 8.3. Sodium 135, potassium 4.8, bicarb 29, BUN 27, creatinine 0.8, calcium 7.7, phosphorus 2.8, magnesium 1.9. Current Medications: The patient is on include cefepime, metronidazole, midodrine 5 mg t.i.d., dexamethasone 5 mg b.i.d., and pantoprazole. Assessment And Plan: 1. Acute kidney injury secondary to poor perfusion ATN, toxic ATN, recovered back, resolved. We will continue to monitor the patient. I am going to give the patient single dose of Lasix today. 2. Hypertension, used to be hypotensive secondary to shock, secondary to adrenal insufficiency. Keep holding blood pressure medication. We will give single dose of Lasix. 3. Edema secondary to venous stasis. We will give Lasix today. 4. Shock, multifactorial secondary to septic and renal insufficiency, recovered, off Levophed. I am going to change dexamethasone to oral. We will continue antibiotic. Follow up with Primary. 5. Anemia, status post transfusions, status post scope. Follow up with GI. 6. Hypomagnesemia, status post supplement. 7. Acidosis, resolved. Time spent examining the patient [id number] reviewing data lab and the radiology placing order discussing the case with the patient discussing the case with the team members including hospitalist and nursing staff more than 55 minutes MALLIKA Voice ID: [id number] Report ID: [id number] [facility]
[2024-09-17] MEDS: FUROSEMIDE 20 MG TABLET PO ONE (11:47)
--- NOTE | 2024-09-17 13:01 | P.PN ---
Subjective Date of Service: 09/17/24 Chief Complaint: Melena, and now hematochezia, anemia Patient any new complaint. She desires to be downgraded to the second floor. She has been off Levophed over the past 24 hours, blood pressure improved. No significant bradycardia episode No recorded fever. Physical Examination - Vital Signs Temperature: 98.0 F Blood Pressure: 95/59 Pulse: 71 Respirations: 17 Pulse Ox (%): 98 - Studies Medications List Reviewed: Yes Assessment And Plan - Plan Physical examination General: Alert and oriented x 3, NAD. HEENT: Conjunctiva not pale, anicteric sclera Neck: Supple, no elevated JVD Heart: Heart sounds 1 and 2 normal, regular rhythm, normal rate, bilateral lower extremity edema. Lungs: Clear to auscultation bilaterally, diminished breath sounds bilaterally, no rhonchi or crackles. Abdomen: Soft, nondistended, nontender, normal bowel sounds. Extremities: No tenderness, no deformity Skin: Normal skin turgor, sacral decubitus ulcer. Neuro: No focal motor deficit. Normal speech. Psychiatry: Anxious, no agitation. Assessment: Melena Stercoral colonic ulcers in the distal rectum up to 6 cm with active bleeding Chronic Inactive Gastritis Acute blood loss anemia Hyponatremia Hyperkalemia-now with hypokalemia Metabolic acidosis Metabolic encephalopathy secondary to above Left lower extremity cellulitis Chronic diastolic congestive heart failure Chronic hypercapnic/hypoxic respiratory failure Atrial fibrillation on chronic anticoagulation Elevated troponin Sacral wounds Plan: Melena Stercoral colonic ulcers in the distal rectum up to 6 cm with active bleeding Chronic Inactive Gastritis Acute blood loss anemia Hypotension Patient was receiving Eliquis for A-fib. Eliquis discontinued due to rectal bleeding Continue Protonix BID Patient completed IV iron supplementation Patient seen by GI Dr. Olvera, colonoscopy done x 3 and reports colonic ulcers, 5 stercoral ulcers in the distal rectum up to 6 cm which showed evidence of bleeding. It also reported small sized uncomplicated internal hemorrhoids. Status post 7 units PRBC transfusion GI recommends taking 2 to 4 tablets of Citrucel per day with a large glass of liquid MiraLAX 1 capful 4 times daily Milk of magnesia 2 tablespoons once or twice a day Serial H&H and transfusion as needed Currently not actively bleeding She is currently tolerating soft diet Hemoglobin has been stable Continue PT. Echocardiogram shows EF of 30 to 35% Wean off Levophed as tolerated. Patient restarted on antibiotics-IV cefepime and vancomycin given concern for sepsis. 09/17 Blood pressure readings improved. Continue antibiotics. Downgrade to the medical floor with telemetry. Hyponatremia-resolved Hyperkalemia-now with hypokalemia Metabolic acidosis-resolved Metabolic encephalopathy secondary to above-resolved Adrenal insufficiency nephrology Following Patient takes spironolactone, potassium, acetazolamide at home Patient started on IV dexamethasone Wean off Levophed as possible 09/17 Blood pressure improved. Continue current dose dexamethasone Hyponatremia improved Left lower extremity cellulitis Blood cultures with no growth to date Patient completed antibiotics. Acute on chronic combined systolic and diastolic congestive heart failure CT chest did not show any interstitial edema or pleural effusions Takes acetazolamide and spironolactone at home Cardiology and nephrology consulted/following Stable Patient is off diuretics Monitor for volume overload improved with IV Lasix prn. Wean off oxygen as tolerated Chronic hypercapnic/hypoxic respiratory failure Continue supplemental oxygen Continue wearing home CPap Atrial fibrillation on chronic anticoagulation Eliquis stopped d/t decrease in Hgb Sotalol discontinued due to profound bradycardia with hypotension. Cardiology is following Continuous telemetry Elevated troponin Cardiology Following Elevated troponin deemed secondary to demand ischemia. Sacral wounds Small stage two gluteal wound-continue with daily dressing change with mepilex. 09/17 Local wound care. Anxiety Xanax as needed. DVT PPX: SCD Code status: Full code Discharge Plan: SNF
--- NOTE | 2024-09-17 16:43 | P.PN ---
Subjective Date of Service: 09/17/24 Chief Complaint: Melena, hematochezia, anemia, hypotension, probable adrenal insuff, low K Subjective: Improving (Off IV pressors, Levophed for 2 days now with start of Dexamethasone bid. No GI bleeding noted by patient now RNs, though hgb drifting 9 to 8 range. Tolerating soft diet. + bowel movements reported.) Review of Systems 10-point ROS is otherwise unremarkable General: Weakness (Improving.), Malaise (Improving.) Physical Examination - Vital Signs Temperature: 97.7 F Blood Pressure: 100/65 Pulse: 62 Respirations: 18 Pulse Ox (%): 100 - Physical Exam General: Alert, In no apparent distress, Oriented x3, Cooperative HEENT: Atraumatic, Normocephalic, PERRLA, EOMI Neck: Supple Cardiovascular: Normal pulses, Edema (LEs, Improving) Gastrointestinal: Soft and benign, No tenderness, No rebound, No guarding Neurological: Normal speech - Studies Medications List Reviewed: Yes Assessment And Plan - Current Problems (Diagnosis) (1) GIB (gastrointestinal bleeding) Current Visit: Yes Status: Acute (2) Melena Current Visit: Yes Status: Acute (3) Gastritis and duodenitis Current Visit: Yes Status: Acute (4) Multiple gastric erosions Current Visit: Yes Status: Acute (5) Ulcer, gastric, acute Current Visit: Yes Status: Acute (6) Morbid obesity Current Visit: No Status: Acute (7) Hematochezia Current Visit: Yes Status: Acute - Plan REC: 1) continue PPI therapy 2) monitor for further bleeding 3) serial H&Hs and transfuse prn 4) continue Miralax tid 5) continue Dexamethasone bid
[2024-09-18] MEDS: ALPRAZOLAM 0.25 MG TABLET PO PRN (04:26)
[2024-09-18 04:45] LABS: Absolute Lymphocytes (CBC) 0.9 K/uL (0.7-4.9); Hematocrit 25.0 % (36.0-45.0); Hemoglobin 8.1 g/dL (12.0-15.0); MCH 29.3 pg (27.0-35.0); MCHC 32.7 g/dL (32.0-36.0); MCV 89.6 fL (80-100); MPV 8.0 fL (7.6-11.3); Nucleated RBC Absolute Count 0.0 (0-0); Nucleated Red Blood Cells % 0.3 % (0-0); RBC Red Blood Cell Count 2.79 M/uL (3.86-4.86); White Blood Count 6.40 thou/uL (4.3-10.9)
[2024-09-18 05:01] LABS: Anion Gap 8.3 mEq/L (5.0-15.0); BUN Blood Urea Nitrogen 24.0 mg/dL (7-18); Glucose Level 135.0 mg/dL (74-106); Potassium 4.3 mEq/L (3.5-5.1)
--- NOTE | 2024-09-18 16:13 | P.PN ---
Subjective Date of Service: 09/18/24 Chief Complaint: Melena, hematochezia, anemia, hypotension, probable adrenal insuff, low K Patient any new complaint. She tolerating her diet Blood pressure has been stable. No recorded fever. Physical Examination - Vital Signs Temperature: 97.7 F Blood Pressure: 109/66 Pulse: 87 Respirations: 15 Pulse Ox (%): 98 - Studies Medications List Reviewed: Yes Assessment And Plan - Plan Physical examination General: Alert and oriented x 3, NAD. HEENT: Conjunctiva not pale, anicteric sclera Neck: Supple, no elevated JVD Heart: Heart sounds 1 and 2 normal, regular rhythm, normal rate, bilateral lower extremity edema. Lungs: Clear to auscultation bilaterally, diminished breath sounds bilaterally, no rhonchi or crackles. Abdomen: Soft, nondistended, nontender, normal bowel sounds. Extremities: No tenderness, no deformity Skin: Normal skin turgor, sacral decubitus ulcer. Neuro: No focal motor deficit. Normal speech. Psychiatry: Anxious, no agitation. Assessment: Melena Stercoral colonic ulcers in the distal rectum up to 6 cm with active bleeding Chronic Inactive Gastritis Acute blood loss anemia Hyponatremia Hyperkalemia-now with hypokalemia Metabolic acidosis Metabolic encephalopathy secondary to above Left lower extremity cellulitis Chronic diastolic congestive heart failure Chronic hypercapnic/hypoxic respiratory failure Atrial fibrillation on chronic anticoagulation Elevated troponin Sacral wounds Plan: Melena Stercoral colonic ulcers in the distal rectum up to 6 cm with active bleeding Chronic Inactive Gastritis Acute blood loss anemia Hypotension Patient was receiving Eliquis for A-fib. Eliquis discontinued due to rectal bleeding Continue Protonix BID Patient completed IV iron supplementation Patient seen by GI Dr. Olvera, colonoscopy done x 3 and reports colonic ulcers, 5 stercoral ulcers in the distal rectum up to 6 cm which showed evidence of bleeding. It also reported small sized uncomplicated internal hemorrhoids. Status post 7 units PRBC transfusion GI recommends taking 2 to 4 tablets of Citrucel per day with a large glass of liquid MiraLAX 1 capful 4 times daily Milk of magnesia 2 tablespoons once or twice a day Serial H&H and transfusion as needed Currently not actively bleeding She is currently tolerating soft diet Hemoglobin has been stable Continue PT. Echocardiogram shows EF of 30 to 35% Wean off Levophed as tolerated. Patient restarted on antibiotics-IV cefepime and vancomycin given concern for sepsis. 09/17 Blood pressure readings improved. Continue antibiotics. Downgrade to the medical floor with telemetry. 09/18 Patient blood pressure has been stable. Continue current antibiotics. Stable for transfer to SNF once insurance approves. Hyponatremia-resolved Hyperkalemia-now with hypokalemia Metabolic acidosis-resolved Metabolic encephalopathy secondary to above-resolved Adrenal insufficiency nephrology Following Patient takes spironolactone, potassium, acetazolamide at home Patient started on IV dexamethasone Wean off Levophed as possible 09/17 Blood pressure improved. Continue current dose dexamethasone Hyponatremia improved 09/18 Hyponatremia resolved. Continue current dose of dexamethasone. Left lower extremity cellulitis Blood cultures with no growth to date Patient completed antibiotics. Acute on chronic combined systolic and diastolic congestive heart failure CT chest did not show any interstitial edema or pleural effusions Takes acetazolamide and spironolactone at home Cardiology and nephrology consulted/following Stable Patient is off diuretics Monitor for volume overload improved with IV Lasix prn. Wean off oxygen as tolerated Chronic hypercapnic/hypoxic respiratory failure Continue supplemental oxygen Continue wearing home CPap Atrial fibrillation on chronic anticoagulation Eliquis stopped d/t decrease in Hgb Sotalol discontinued due to profound bradycardia with hypotension. Cardiology is following Continuous telemetry Elevated troponin Cardiology Following Elevated troponin deemed secondary to demand ischemia. Sacral wounds Small stage two gluteal wound-continue with daily dressing change with mepilex. 09/17 Local wound care. Anxiety Xanax as needed. DVT PPX: SCD Code status: Full code Discharge Plan: [facility]
--- NOTE | 2024-09-19 00:02 | PN ---
Date of Progress Note: 09/18/2024 Subjective: The patient was admitted to the hospital because of cellulitis associated with septic sh ock. She was admitted to ICU. Recently, she was re-admitted to ICU after colonoscopy. She develope d shock, required Levophed. Workup showed adrenal insufficiency. The patient is started on dexameth asone. Review of Systems: Denies chest pain, palpitations. Physical Examination: Lungs: Clear to auscultation bilaterally. Heart: S1, S2. Abdomen: Soft. Extremities: Venous stasis changes bilaterally. No erythema. Impression And Plan: 1. Acute kidney injury secondary to renal hypoperfusion with toxic acute tubular necrosis. Renal fun ction improved. Acute kidney injury resolved. The patient will continue adequate hydration by mouth . Monitor electrolytes. 2. Hypertension. Blood pressure stabilized. Hypotension, resolved. 3. Edema secondary to venous stasis, status post single dose of Lasix. Monitor renal panel. 4. Shock, multifactorial, secondary to sepsis, adrenal insufficiency. The patient has recovered. Cu rrently off Levophed. 5. Anemia, status post transfusion. Monitor hemoglobin level. 6. Hypomagnesemia, status post supplementation. EB/MODL Voice ID: [id number] Report ID: [id number]
[2024-09-19 04:31] LABS: Absolute Lymphocytes (CBC) 0.8 K/uL (0.7-4.9); Hematocrit 24.5 % (36.0-45.0); Hemoglobin 8.0 g/dL (12.0-15.0); MCH 29.3 pg (27.0-35.0); MCHC 32.6 g/dL (32.0-36.0); MCV 89.8 fL (80-100); MPV 7.7 fL (7.6-11.3); Nucleated RBC Absolute Count 0.0 (0-0); Nucleated Red Blood Cells % 0.2 % (0-0); RBC Red Blood Cell Count 2.73 M/uL (3.86-4.86); White Blood Count 6.50 thou/uL (4.3-10.9)
[2024-09-19 04:44] LABS: Anion Gap 7.1 mEq/L (5.0-15.0); BUN Blood Urea Nitrogen 21.0 mg/dL (7-18); Glucose Level 143.0 mg/dL (74-106); Potassium 4.1 mEq/L (3.5-5.1)
[2024-09-19 05:04] LABS: Differential Total Cells Count 100; Segmented Neutrophils 74 % (40-80)
[2024-09-19 05:05] LABS: Blood Morphology Comment NOT SEEN (NOT SEEN)
--- NOTE | 2024-09-19 18:08 | P.PN ---
Date of Service: 09/19/24 Subjective: Awake, asking to leave, still on 1 LNC SNF denied, will await the appeal Agreeable to working with therapy ROS: 10 point ROS as noted above, otherwise negative Physical exam GEN: AAO x 3, sad CV: Regular rate and rhythm, S1-S2 present Pulm: Symmetrical chest wall movement, on 1 LNC/ CPAP at night ABD: distended (obese), hypoactive bowel sounds MSK: edema present to BLE Integumentary: Erythema to left lower extremity- improved, PICC line in place, RUE swelling noted Neuro: Normal speech Vitals reviewed Assessment: Melena Stercoral colonic ulcers in the distal rectum up to 6 cm with active bleeding Chronic Inactive Gastritis Acute blood loss anemia Hyponatremia Hyperkalemia-now with hypokalemia Metabolic acidosis Metabolic encephalopathy secondary to above Left lower extremity cellulitis Chronic diastolic congestive heart failure Chronic hypercapnic/hypoxic respiratory failure Atrial fibrillation on chronic anticoagulation Elevated troponin Sacral wounds Plan: Melena Stercoral colonic ulcers in the distal rectum up to 6 cm with active bleeding Chronic Inactive Gastritis Acute blood loss anemia Hypotension Patient was receiving Eliquis for A-fib. Eliquis discontinued due to rectal bleeding Continue Protonix BID Patient completed IV iron supplementation Patient seen by GI Dr. Olvera, colonoscopy done x 3 and reports colonic ulcers, 5 stercoral ulcers in the distal rectum up to 6 cm which showed evidence of bleeding. It also reported small sized uncomplicated internal hemorrhoids. Status post 7 units PRBC transfusion GI recommends taking 2 to 4 tablets of Citrucel per day with a large glass of liquid MiraLAX 1 capful 4 times daily Milk of magnesia 2 tablespoons once or twice a day Serial H&H and transfusion as needed Currently not actively bleeding She is currently tolerating soft diet Hemoglobin has been stable Continue PT. Echocardiogram shows EF of 30 to 35% Wean off Levophed as tolerated. Patient restarted on antibiotics-IV cefepime and vancomycin given concern for sepsis. Hyponatremia-resolved Hyperkalemia-now with hypokalemia Metabolic acidosis-resolved Metabolic encephalopathy secondary to above-resolved Adrenal insufficiency nephrology Following Patient takes spironolactone, potassium, acetazolamide at home Patient started on IV dexamethasone Downgraded to the floor Left lower extremity cellulitis Blood cultures with no growth to date Patient completed antibiotics Chronic diastolic congestive heart failure CT chest did not show any interstitial edema or pleural effusions Takes acetazolamide and spironolactone at home Cardiology and nephrology consulted/following Stable Patient is off diuretics Monitor for volume overload improved with IV Lasix prn. Wean off oxygen as tolerated Chronic hypercapnic/hypoxic respiratory failure Continue supplemental oxygen Continue wearing home CPap Atrial fibrillation on chronic anticoagulation Eliquis stopped d/t decrease in Hgb Sotalol discontinued due to profound bradycardia with hypotension. Cardiology is following Continuous telemetry Elevated troponin Cardiology Following Elevated troponin deemed secondary to demand ischemia. Sacral wounds Small stage two gluteal wound-continue with daily dressing change with mepilex. Anxiety Xanax as needed. DVT PPX: SCD Code status: Full code Discharge Plan: SNF-awaiting appeal Time Spent Managing Pts Care (In Minutes): 44
--- NOTE | 2024-09-19 22:52 | PN ---
Date of Progress Note: 09/19/2024 Chief Complaint: Septic shock, cellulitis, acute kidney injury in setting of septic shock and cellul itis. Subjective: The patient primarily was admitted to ICU. Subsequently, she was re-admitted to ICU aft er a colonoscopy. The patient was started on dexamethasone for adrenal insufficiency. The patient h as persistent hypotension. Review of Systems: Denies chest pain, palpitation. Physical Examination: Lungs: Clear to auscultation bilaterally. Heart: S1, S2. Abdomen: Soft. Extremities: Slight bilateral ankle edema. Impression And Plan: 1. Acute kidney injury secondary to renal hypoperfusion with toxic acute tubular necrosis. Renal fun ction improved to baseline. Avoid nephrotoxic medication. Continue adequate hydration by mouth. 2. Hypotension, resolved. The patient is on dexamethasone for renal insufficiency. 3. Edema secondary to venous stasis. Single dose of Lasix was given. Continue Lasix as needed. 4. Shock, multifactorial secondary to sepsis, adrenal insufficiency. Blood pressure improved and pat ient is off Levophed. 5. Anemia, status post transfusion. 6. Hypomagnesemia, status post supplementation. EB/MODL Voice ID: [id number] Report ID: [id number]
[2024-09-20 06:25] LABS: Hematocrit 27.7 % (36.0-45.0); Hemoglobin 9.1 g/dL (12.0-15.0); MCH 29.4 pg (27.0-35.0); MCHC 32.8 g/dL (32.0-36.0); MCV 89.7 fL (80-100); MPV 7.3 fL (7.6-11.3); RBC Red Blood Cell Count 3.09 M/uL (3.86-4.86); White Blood Count 7.90 thou/uL (4.3-10.9)
[2024-09-20 06:45] LABS: Anion Gap 7.9 mEq/L (5.0-15.0); BUN Blood Urea Nitrogen 22.0 mg/dL (7-18); Glucose Level 138.0 mg/dL (74-106); Potassium 3.9 mEq/L (3.5-5.1)
--- NOTE | 2024-09-20 12:14 | P.PN ---
Date of Service: 09/20/24 Subjective: Awake, no acute events overnight Significant pillow in place ROS: 10 point ROS as noted above, otherwise negative Physical exam GEN: AAO x 3, sad CV: Regular rate and rhythm, S1-S2 present Pulm: Symmetrical chest wall movement, on 1 LNC/ CPAP at night ABD: distended (obese), hypoactive bowel sounds MSK: edema present to BLE Integumentary: Erythema to left lower extremity- improved, PICC line in place, RUE swelling noted Neuro: Normal speech Vitals reviewed Assessment: Melena Stercoral colonic ulcers in the distal rectum up to 6 cm with active bleeding Chronic Inactive Gastritis Acute blood loss anemia Hyponatremia Hyperkalemia-now with hypokalemia Metabolic acidosis Metabolic encephalopathy secondary to above Left lower extremity cellulitis Chronic diastolic congestive heart failure Chronic hypercapnic/hypoxic respiratory failure Atrial fibrillation on chronic anticoagulation Elevated troponin Sacral wounds Plan: Melena Stercoral colonic ulcers in the distal rectum up to 6 cm with active bleeding Chronic Inactive Gastritis Acute blood loss anemia Hypotension Patient was receiving Eliquis for A-fib. Eliquis discontinued due to rectal bleeding Continue Protonix BID Patient completed IV iron supplementation Patient seen by GI Dr. Olvera, colonoscopy done x 3 and reports colonic ulcers, 5 stercoral ulcers in the distal rectum up to 6 cm which showed evidence of bleeding. It also reported small sized uncomplicated internal hemorrhoids. Status post 7 units PRBC transfusion GI recommends taking 2 to 4 tablets of Citrucel per day with a large glass of liquid MiraLAX 1 capful 4 times daily Milk of magnesia 2 tablespoons once or twice a day Serial H&H and transfusion as needed Currently not actively bleeding She is currently tolerating soft diet Hemoglobin has been stable Continue PT. Echocardiogram shows EF of 30 to 35% Off of Levophed Hyponatremia-resolved Hyperkalemia-now with hypokalemia Metabolic acidosis-resolved Metabolic encephalopathy secondary to above-resolved Adrenal insufficiency nephrology Following-started on steroids/Decadron at this time Patient takes spironolactone, potassium, acetazolamide at home Left lower extremity cellulitis Blood cultures with no growth to date Patient completed antibiotics Chronic diastolic congestive heart failure CT chest did not show any interstitial edema or pleural effusions Takes acetazolamide and spironolactone at home Cardiology and nephrology consulted/following Stable Patient is off diuretics Monitor for volume overload improved with IV Lasix prn. Wean off oxygen as tolerated Chronic hypercapnic/hypoxic respiratory failure Continue supplemental oxygen Continue wearing home CPap Atrial fibrillation on chronic anticoagulation Eliquis stopped d/t decrease in Hgb Sotalol discontinued due to profound bradycardia with hypotension. Cardiology is following Continuous telemetry Elevated troponin Cardiology Following Elevated troponin deemed secondary to demand ischemia. Sacral wounds Small stage two gluteal wound-continue with daily dressing change with mepilex. Anxiety Xanax as needed. DVT PPX: SCD Code status: Full code Discharge Plan: SNF-awaiting appeal Time Spent Managing Pts Care (In Minutes): 44
--- NOTE | 2024-09-20 12:39 | PN ---
Date of Progress Note: 09/20/2024 Subjective: The patient was admitted to the hospital with sepsis, found to have hypernatremia, had c olonoscopy, developed adrenal insufficiency. Physical Examination: Vital Signs: Blood pressure 125/69, pulse of 100, afebrile. Chest: Decreased air entry, bilateral base. Heart: S1, S2. Regular. Abdomen: Morbidly obese. Could not appreciate any organomegaly. Extremities: Venous stasis change, bilateral. Laboratory Data: WBC 7.9, hemoglobin of 9. Sodium 135, potassium 3.9, bicarb 27, BUN 22, creatinine 0.7, calcium 7.9. Current Medications: The patient is on include Tylenol, cefepime, metronidazole, dexamethasone 5 mg b.i.d., midodrine 5 t.i.d., ipratropium, pantoprazole, Zofran. Assessment And Plan: 1. Acute kidney injury secondary to prerenal, toxic ATN, recovered, resolved. 2. Hypertension. Currently, blood pressure controlled. The patient had low blood pressure secondary to adrenal crisis. We will decrease midodrine to b.i.d. and I am going to go ahead and start decrea sing her dexamethasone to 4 mg b.i.d. as to go to work at the maintenance dose. 3. Edema, venous stasis. We will continue to monitor. 4. Cellulitis. Continue current antibiotic. Follow up with Primary. MALLIKA Voice ID: [id number] Report ID: [id number]
[2024-09-20] MEDS: MIDODRINE HCL 5 MG TABLET PO SCH (21:00)
[2024-09-21 06:24] LABS: Hematocrit 26.4 % (36.0-45.0); Hemoglobin 8.7 g/dL (12.0-15.0); MCH 29.9 pg (27.0-35.0); MCHC 32.9 g/dL (32.0-36.0); MCV 90.7 fL (80-100); MPV 7.3 fL (7.6-11.3); RBC Red Blood Cell Count 2.91 M/uL (3.86-4.86); White Blood Count 8.30 thou/uL (4.3-10.9)
[2024-09-21 06:39] LABS: Anion Gap 6.8 mEq/L (5.0-15.0); BUN Blood Urea Nitrogen 19.0 mg/dL (7-18); Glucose Level 161.0 mg/dL (74-106); Potassium 3.8 mEq/L (3.5-5.1)
--- NOTE | 2024-09-21 13:44 | P.PN ---
Date of Service: 09/21/24 Subjective: Awake, no acute events overnight Tolerating nasal cannula No specific complaints, seems to deal with intermittent anxiety ROS: 10 point ROS as noted above, otherwise negative Physical exam GEN: AAO x 3, sad CV: Regular rate and rhythm, S1-S2 present Pulm: Symmetrical chest wall movement, on 1 LNC/ CPAP at night ABD: distended (obese), hypoactive bowel sounds MSK: edema present to BLE Integumentary: Erythema to left lower extremity- improved, PICC line in place, RUE swelling noted Neuro: Normal speech Vitals reviewed Assessment: Melena Stercoral colonic ulcers in the distal rectum up to 6 cm with active bleeding Chronic Inactive Gastritis Acute blood loss anemia Hyponatremia Hyperkalemia-now with hypokalemia Metabolic acidosis Metabolic encephalopathy secondary to above Left lower extremity cellulitis Chronic diastolic congestive heart failure Chronic hypercapnic/hypoxic respiratory failure Atrial fibrillation on chronic anticoagulation Elevated troponin Sacral wounds Plan: Melena Stercoral colonic ulcers in the distal rectum up to 6 cm with active bleeding Chronic Inactive Gastritis Acute blood loss anemia Hypotension Patient was receiving Eliquis for A-fib. Eliquis discontinued due to rectal bleeding Continue Protonix BID Patient completed IV iron supplementation Patient seen by GI Dr. Olvera, colonoscopy done x 3 and reports colonic ulcers, 5 stercoral ulcers in the distal rectum up to 6 cm which showed evidence of bleeding. It also reported small sized uncomplicated internal hemorrhoids. Status post 7 units PRBC transfusion GI recommends taking 2 to 4 tablets of Citrucel per day with a large glass of liquid MiraLAX 1 capful 4 times daily Milk of magnesia 2 tablespoons once or twice a day Serial H&H and transfusion as needed Currently not actively bleeding She is currently tolerating soft diet Hemoglobin has been stable Continue PT. Echocardiogram shows EF of 30 to 35% Off of Levophed Hyponatremia-resolved Hyperkalemia-now with hypokalemia Metabolic acidosis-resolved Metabolic encephalopathy secondary to above-resolved Adrenal insufficiency nephrology Following-started on steroids/Decadron at this time Patient takes spironolactone, potassium, acetazolamide at home Decadron being titrated down by nephrology, at discharge will be on Decadron 2 mg twice daily Left lower extremity cellulitis Blood cultures with no growth to date Patient completed antibiotics Chronic diastolic congestive heart failure CT chest did not show any interstitial edema or pleural effusions Takes acetazolamide and spironolactone at home Cardiology and nephrology consulted/following Stable Patient is off diuretics Monitor for volume overload improved with IV Lasix prn. Wean off oxygen as tolerated Chronic hypercapnic/hypoxic respiratory failure Continue supplemental oxygen Continue wearing home CPap Atrial fibrillation on chronic anticoagulation Eliquis stopped d/t decrease in Hgb Sotalol discontinued due to profound bradycardia with hypotension. Cardiology is following Continuous telemetry Elevated troponin Cardiology Following Elevated troponin deemed secondary to demand ischemia. Sacral wounds Small stage two gluteal wound-continue with daily dressing change with mepilex. Anxiety Xanax as needed. DVT PPX: SCD Code status: Full code Discharge Plan: SNF-awaiting appeal Time Spent Managing Pts Care (In Minutes): 44
[2024-09-21] MEDS: POTASSIUM CL SA 10 MEQ TAB PO ONE (16:52)
[2024-09-21] MEDS: MIDODRINE HCL 5 MG TABLET PO SCH (21:27)
[2024-09-22 06:31] LABS: Anion Gap 7.9 mEq/L (5.0-15.0); BUN Blood Urea Nitrogen 16.0 mg/dL (7-18); Glucose Level 110.0 mg/dL (74-106); Potassium 3.9 mEq/L (3.5-5.1)
[2024-09-22] MEDS: POTASSIUM CL SA 10 MEQ TAB PO ONE (08:38)
[2024-09-22] MEDS: POLYETHYL GLY 3350 17 GM/DOSE PO SCH (08:39)
--- NOTE | 2024-09-22 15:22 | P.PN ---
Date of Service: 09/22/24 Subjective: Awake, no acute events overnight Tolerating nasal cannula No specific complaints, seems to deal with intermittent anxiety awaiting appeal for SNF from insurance ROS: 10 point ROS as noted above, otherwise negative Physical exam GEN: AAO x 3, no distress CV: Regular rate and rhythm, S1-S2 present Pulm: Symmetrical chest wall movement, on 1 LNC/ CPAP at night ABD: distended (obese),normal bowel sounds MSK: edema present to BLE Integumentary: Erythema to left lower extremity- improved, PICC line in place, RUE swelling noted Neuro: Normal speech Vitals reviewed Assessment: Melena Stercoral colonic ulcers in the distal rectum up to 6 cm with active bleeding Chronic Inactive Gastritis Acute blood loss anemia Hyponatremia Hyperkalemia-now with hypokalemia Metabolic acidosis Metabolic encephalopathy secondary to above Left lower extremity cellulitis Chronic diastolic congestive heart failure Chronic hypercapnic/hypoxic respiratory failure Atrial fibrillation on chronic anticoagulation Elevated troponin Sacral wounds Plan: Melena Stercoral colonic ulcers in the distal rectum up to 6 cm with active bleeding Chronic Inactive Gastritis Acute blood loss anemia Hypotension Patient was receiving Eliquis for A-fib. Eliquis discontinued due to rectal bleeding Continue Protonix BID Patient completed IV iron supplementation Patient seen by GI Dr. Olvera, colonoscopy done x 3 and reports colonic ulcers, 5 stercoral ulcers in the distal rectum up to 6 cm which showed evidence of bleeding. It also reported small sized uncomplicated internal hemorrhoids. Status post 7 units PRBC transfusion GI recommends taking 2 to 4 tablets of Citrucel per day with a large glass of liquid MiraLAX 1 capful 4 times daily Milk of magnesia 2 tablespoons once or twice a day Serial H&H and transfusion as needed Currently not actively bleeding She is currently tolerating soft diet Hemoglobin has been stable Continue PT. Echocardiogram shows EF of 30 to 35% Hyponatremia-resolved Hyperkalemia-now with hypokalemia Metabolic acidosis-resolved Metabolic encephalopathy secondary to above-resolved Adrenal insufficiency nephrology Following-started on steroids/Decadron at this time Patient takes spironolactone, potassium, acetazolamide at home Decadron being titrated down by nephrology, at discharge will be on Decadron 1mg in AM and 0.5 mg at DC Left lower extremity cellulitis Blood cultures with no growth to date Patient completed antibiotics Chronic diastolic congestive heart failure CT chest did not show any interstitial edema or pleural effusions Takes acetazolamide and spironolactone at home Cardiology and nephrology consulted/following Stable Patient is off diuretics Monitor for volume overload improved with IV Lasix prn. Wean off oxygen as tolerated Chronic hypercapnic/hypoxic respiratory failure Continue supplemental oxygen Continue wearing home CPap Atrial fibrillation on chronic anticoagulation Eliquis stopped d/t decrease in Hgb Sotalol discontinued due to profound bradycardia with hypotension. Cardiology is following Continuous telemetry Elevated troponin Cardiology Following Elevated troponin deemed secondary to demand ischemia. Sacral wounds Small stage two gluteal wound-continue with daily dressing change with mepilex. Anxiety Xanax as needed. DVT PPX: SCD Code status: Full code Discharge Plan: SNF-awaiting appeal Time Spent Managing Pts Care (In Minutes): 44
[2024-09-22] MEDS: GABAPENTIN 300 MG CAP PO PRN (17:29)
--- NOTE | 2024-09-22 23:36 | PN ---
Date of Progress Note: 09/21/2024 Subjective: The patient was admitted to the hospital with sepsis. She was found to have hyponatremi a and adrenal insufficiency, primarily she was treated with IV fluids for acute kidney injury due to prerenal azotemia. She had episodes of hyponatremia, which stabilized with normal saline. Review of Systems: Denies chest pain, palpitations. Physical Examination: Lungs: Clear to auscultation bilaterally. Heart: S1, S2. Abdomen: Soft. Extremities: No edema. Impression And Plan: 1. Acute kidney injury due to prerenal azotemia, toxic acute tubular necrosis, recovered and renal fu nction at baseline, stable. 2. Hypertension. Blood pressure controlled. Continue medication. 3. The patient had episodes of blood pressure secondary to adrenal crisis. She is on dexamethasone. Her midodrine dose will be decreased. 4. Edema, venous stasis. Continue to monitor cellulitis. Continue antibiotics. EB/MODL Voice ID: [id number] Report ID: [id number]
--- NOTE | 2024-09-23 14:00 | P.PN ---
Subjective Date of Service: 09/23/24 Chief Complaint: Melena, hematochezia, anemia, hypotension, probable adrenal insuff, low K Subjective: No new changes Physical Examination - Vital Signs Temperature: 98.0 F Blood Pressure: 118/70 Pulse: 102 Respirations: 18 Pulse Ox (%): 97 - Physical Exam General: Other (chronically ill-appearing) HEENT: Atraumatic, Normocephalic Neck: Supple, JVD not distended Respiratory: Other (symmetric chest expansion) Cardiovascular: No rubs, No murmurs Gastrointestinal: Soft and benign, No guarding Musculoskeletal: No clubbing Integumentary: No warmth Neurological: Other (nonfocal) Urinary: Other (no bladder distention) External genitalia: Deferred Rectal: Deferred - Studies Medications List Reviewed: Yes Assessment And Plan - Plan 1. Acute kidney injury due to prerenal azotemia + acute tubular necrosis. Resolved, SCr 0.6. Monitor renal panel. 2. Hypertension. Blood pressure controlled. Continue current medication regimen. 3. The patient had episodes of low blood pressure secondary to adrenal crisis. She is on dexamethasone. wean off midodrine accordingly. 4. BLE edema, venous stasis, cellulitis. Continue to monitor cellulitis. Continue antibiotics.
--- NOTE | 2024-09-23 14:03 | P.PN ---
Date of Service: 09/23/24 Subjective: Awake, no acute events overnight Tolerating nasal cannula No specific complaints, seems to deal with intermittent anxiety SNF appeal successful, awaiting approval from facility stable ROS: 10 point ROS as noted above, otherwise negative Physical exam GEN: AAO x 3, no distress CV: Regular rate and rhythm, S1-S2 present Pulm: Symmetrical chest wall movement, on 1 LNC/ CPAP at night ABD: distended (obese),normal bowel sounds MSK: edema present to BLE Integumentary: Erythema to left lower extremity- improved, PICC line in place, RUE swelling noted Neuro: Normal speech Vitals reviewed Assessment: Melena Stercoral colonic ulcers in the distal rectum up to 6 cm with active bleeding Chronic Inactive Gastritis Acute blood loss anemia Hyponatremia Hyperkalemia-now with hypokalemia Metabolic acidosis Metabolic encephalopathy secondary to above Left lower extremity cellulitis Chronic diastolic congestive heart failure Chronic hypercapnic/hypoxic respiratory failure Atrial fibrillation on chronic anticoagulation Elevated troponin Sacral wounds Plan: Melena Stercoral colonic ulcers in the distal rectum up to 6 cm with active bleeding Chronic Inactive Gastritis Acute blood loss anemia Hypotension Patient was receiving Eliquis for A-fib. Eliquis discontinued due to rectal bleeding Continue Protonix BID Patient completed IV iron supplementation Patient seen by GI Dr. Olvera, colonoscopy done x 3 and reports colonic ulcers, 5 stercoral ulcers in the distal rectum up to 6 cm which showed evidence of bleeding. It also reported small sized uncomplicated internal hemorrhoids. Status post 7 units PRBC transfusion GI recommends taking 2 to 4 tablets of Citrucel per day with a large glass of liquid MiraLAX 1 capful 4 times daily Milk of magnesia 2 tablespoons once or twice a day Serial H&H and transfusion as needed Currently not actively bleeding She is currently tolerating soft diet Hemoglobin has been stable Continue PT. Echocardiogram shows EF of 30 to 35% Hyponatremia-resolved Hyperkalemia-now with hypokalemia Metabolic acidosis-resolved Metabolic encephalopathy secondary to above-resolved Adrenal insufficiency nephrology Following-started on steroids/Decadron at this time Patient takes spironolactone, potassium, acetazolamide at home Decadron being titrated down by nephrology, at discharge will be on Decadron 1mg in AM and 0.5 mg at DC Left lower extremity cellulitis Blood cultures with no growth to date Patient completed antibiotics Chronic diastolic congestive heart failure CT chest did not show any interstitial edema or pleural effusions Takes acetazolamide and spironolactone at home Cardiology and nephrology consulted/following Stable Patient is off diuretics Monitor for volume overload improved with IV Lasix prn. Wean off oxygen as tolerated Chronic hypercapnic/hypoxic respiratory failure Continue supplemental oxygen Continue wearing home CPap Atrial fibrillation on chronic anticoagulation Eliquis stopped d/t decrease in Hgb no further melena or BRBPR resume eliquis in ~1 week Sotalol discontinued due to profound bradycardia with hypotension. Cardiology is following Continuous telemetry Elevated troponin Cardiology Following Elevated troponin deemed secondary to demand ischemia. Sacral wounds Small stage two gluteal wound-continue with daily dressing change with mepilex. Anxiety Xanax as needed. DVT PPX: SCD Code status: Full code Discharge Plan: SNF-awaiting appeal Time Spent Managing Pts Care (In Minutes): 44
--- NOTE | 2024-09-23 19:03 | P.PN ---
Subjective Date of Service: 09/20/24 Chief Complaint: Melena, hematochezia, anemia, hypotension, probable adrenal insuff, low K Subjective: Improving (No further GI bleeding. Hgb increasing. Tolerating po diet.) Review of Systems 10-point ROS is otherwise unremarkable General: Weakness (Improved. ) Physical Examination - Vital Signs Temperature: 97.9 F Blood Pressure: 120/72 Pulse: 99 Respirations: 18 Pulse Ox (%): 97 - Physical Exam General: Alert, In no apparent distress, Oriented x3, Cooperative HEENT: Atraumatic, Normocephalic, PERRLA, EOMI Neck: Supple Respiratory: Normal air movement Cardiovascular: Normal pulses, Edema (Improved. ) Gastrointestinal: Soft and benign (obese), No tenderness, No rebound, No guarding Neurological: Normal speech - Studies Medications List Reviewed: Yes Assessment And Plan - Current Problems (Diagnosis) (1) GIB (gastrointestinal bleeding) Current Visit: Yes Status: Acute (2) Melena Current Visit: Yes Status: Acute (3) Gastritis and duodenitis Current Visit: Yes Status: Acute (4) Multiple gastric erosions Current Visit: Yes Status: Acute (5) Ulcer, gastric, acute Current Visit: Yes Status: Acute (6) Morbid obesity Current Visit: No Status: Acute (7) Hematochezia Current Visit: Yes Status: Acute - Plan REC: 1) continue PPI therapy 2) monitor for further bleeding 3) serial H&Hs and transfuse prn 4) continue Miralax tid 5) continue Dexamethasone bid
--- NOTE | 2024-09-23 19:28 | P.PN ---
Subjective Date of Service: 09/23/24 Chief Complaint: Melena, hematochezia, anemia, hypotension, probable adrenal insuff, low K Subjective: Improving (She feels well and is waiting transfer to her rehab facility. Tolerating po diet well. She reports 1-3 bowel movements per day on Miralax. No GI bleeding noted.) Review of Systems 10-point ROS is otherwise unremarkable General: Weakness (Improved. ) Physical Examination - Vital Signs Temperature: 97.9 F Blood Pressure: 120/72 Pulse: 99 Respirations: 18 Pulse Ox (%): 97 - Physical Exam General: Alert, In no apparent distress, Oriented x3, Cooperative HEENT: Atraumatic, Normocephalic, PERRLA, EOMI Neck: Supple Respiratory: Normal air movement Cardiovascular: Normal pulses Gastrointestinal: Soft and benign, No tenderness, No rebound, No guarding Neurological: Normal speech - Studies Medications List Reviewed: Yes Assessment And Plan - Current Problems (Diagnosis) (1) GIB (gastrointestinal bleeding) Current Visit: Yes Status: Acute (2) Melena Current Visit: Yes Status: Acute (3) Gastritis and duodenitis Current Visit: Yes Status: Acute (4) Multiple gastric erosions Current Visit: Yes Status: Acute (5) Ulcer, gastric, acute Current Visit: Yes Status: Acute (6) Morbid obesity Current Visit: No Status: Acute (7) Hematochezia Current Visit: Yes Status: Acute - Plan REC: 1) continue PPI therapy 2) monitor for further bleeding 3) serial H&Hs and transfuse prn 4) continue Miralax tid 5) continue Dexamethasone bid 6) restart Eliquis in 1 week
[2024-09-24 05:48] LABS: Hematocrit 26.5 % (36.0-45.0); Hemoglobin 8.9 g/dL (12.0-15.0); MCH 30.5 pg (27.0-35.0); MCHC 33.5 g/dL (32.0-36.0); MCV 91.3 fL (80-100); MPV 7.0 fL (7.6-11.3); RBC Red Blood Cell Count 2.90 M/uL (3.86-4.86); White Blood Count 10.60 thou/uL (4.3-10.9)
[2024-09-24 06:03] LABS: Anion Gap 7.6 mEq/L (5.0-15.0); BUN Blood Urea Nitrogen 14.0 mg/dL (7-18); Glucose Level 156.0 mg/dL (74-106); Potassium 3.6 mEq/L (3.5-5.1)
[2024-09-24] MEDS: POTASSIUM CL SA 10 MEQ TAB PO ONE (09:22)
--- NOTE | 2024-09-24 09:37 | P.PN ---
Date of Service: 09/24/24 Subjective: Awake, no acute events overnight Tolerating nasal cannula No specific complaints, seems to deal with intermittent anxiety SNF appeal successful, awaiting approval from facility stable No further melena or bleeding ROS: 10 point ROS as noted above, otherwise negative Physical exam GEN: AAO x 3, no distress CV: Regular rate and rhythm, S1-S2 present Pulm: Symmetrical chest wall movement, on 1 LNC/ CPAP at night ABD: distended (obese),normal bowel sounds MSK: edema present to BLE Integumentary: Erythema to left lower extremity- improved, PICC line in place, RUE swelling noted Neuro: Normal speech Vitals reviewed Assessment: Melena Stercoral colonic ulcers in the distal rectum up to 6 cm with active bleeding Chronic Inactive Gastritis Acute blood loss anemia Hyponatremia Hyperkalemia-now with hypokalemia Metabolic acidosis Metabolic encephalopathy secondary to above Left lower extremity cellulitis Chronic diastolic congestive heart failure Chronic hypercapnic/hypoxic respiratory failure Atrial fibrillation on chronic anticoagulation Elevated troponin Sacral wounds Plan: Melena Stercoral colonic ulcers in the distal rectum up to 6 cm with active bleeding Chronic Inactive Gastritis Acute blood loss anemia Hypotension Patient was receiving Eliquis for A-fib. Eliquis discontinued due to rectal bleeding Continue Protonix BID Patient completed IV iron supplementation Patient seen by GI Dr. Olvera, colonoscopy done x 3 and reports colonic ulcers, 5 stercoral ulcers in the distal rectum up to 6 cm which showed evidence of bleeding. It also reported small sized uncomplicated internal hemorrhoids. Status post 7 units PRBC transfusion MiraLAX 1 capful 3 times daily to maintain BM 1-2 time daily Currently not actively bleeding She is currently tolerating soft diet Hemoglobin has been stable Continue PT. Echocardiogram shows EF of 30 to 35% hemoglobin stable Hyponatremia-resolved Hyperkalemia-now with hypokalemia Metabolic acidosis-resolved Metabolic encephalopathy secondary to above-resolved Adrenal insufficiency nephrology Following-started on steroids/Decadron at this time Patient takes spironolactone, potassium, acetazolamide at home Decadron being titrated down by nephrology, at discharge will be on Decadron 1mg in AM and 0.5 mg at DC Left lower extremity cellulitis Blood cultures with no growth to date Patient completed antibiotics Chronic diastolic congestive heart failure CT chest did not show any interstitial edema or pleural effusions Takes acetazolamide and spironolactone at home Cardiology and nephrology consulted/following Stable Patient is off diuretics Monitor for volume overload improved with IV Lasix prn. Wean off oxygen as tolerated Chronic hypercapnic/hypoxic respiratory failure Continue supplemental oxygen Continue wearing home CPap Atrial fibrillation on chronic anticoagulation Eliquis stopped d/t decrease in Hgb no further melena or BRBPR resume eliquis in ~1 week Sotalol discontinued due to profound bradycardia with hypotension. Cardiology is following Continuous telemetry Elevated troponin Cardiology Following Elevated troponin deemed secondary to demand ischemia. Sacral wounds Small stage two gluteal wound-continue with daily dressing change with mepilex. Anxiety Xanax as needed. DVT PPX: SCD Code status: Full code Discharge Plan: SNF-awaiting appeal Time Spent Managing Pts Care (In Minutes): 44
[2024-09-25 06:34] LABS: Anion Gap 7.5 mEq/L (5.0-15.0); BUN Blood Urea Nitrogen 13.0 mg/dL (7-18); Glucose Level 157.0 mg/dL (74-106); Magnesium 1.5 mg/dL (1.6-2.4); Potassium 3.5 mEq/L (3.5-5.1)
[2024-09-25] MEDS: POTASSIUM CL SA 10 MEQ TAB PO ONE (09:09)
[2024-09-25] MEDS: MAGNESIUM SULFATE 1 gm IVPB 1 GM/100 ML BAG IV ONE (09:09)
[2024-09-25] MEDS: METOPROLOL TAR 25 MG TAB PO SCH (15:53)
--- NOTE | 2024-09-25 16:45 | P.PN ---
Date of Service: 09/25/24 Subjective: anxious, crying upset she is still in the hospital awaiting insurance approval notification to SNF ROS: 10 point ROS as noted above, otherwise negative Physical exam GEN: AAO x 3, no distress CV: Regular rate and rhythm, S1-S2 present Pulm: Symmetrical chest wall movement, on 1 LNC/ CPAP at night ABD: distended (obese),normal bowel sounds MSK: edema present to BLE Integumentary: Erythema to left lower extremity- improved, PICC line in place, RUE swelling noted Neuro: Normal speech Vitals reviewed Assessment: Melena Stercoral colonic ulcers in the distal rectum up to 6 cm with active bleeding Chronic Inactive Gastritis Acute blood loss anemia Hyponatremia Hyperkalemia-now with hypokalemia Metabolic acidosis Metabolic encephalopathy secondary to above Left lower extremity cellulitis Chronic diastolic congestive heart failure Chronic hypercapnic/hypoxic respiratory failure Atrial fibrillation on chronic anticoagulation Elevated troponin Sacral wounds Plan: Melena Stercoral colonic ulcers in the distal rectum up to 6 cm with active bleeding Chronic Inactive Gastritis Acute blood loss anemia Hypotension Patient was receiving Eliquis for A-fib. Eliquis discontinued due to rectal bleeding Continue Protonix BID Patient completed IV iron supplementation Patient seen by GI Dr. Olvera, colonoscopy done x 3 and reports colonic ulcers, 5 stercoral ulcers in the distal rectum up to 6 cm which showed evidence of bleeding. It also reported small sized uncomplicated internal hemorrhoids. Status post 7 units PRBC transfusion MiraLAX 1 capful 3 times daily to maintain BM 1-2 time daily Currently not actively bleeding She is currently tolerating soft diet Hemoglobin has been stable Continue PT. Echocardiogram shows EF of 30 to 35% hemoglobin stable Hyponatremia-resolved Hyperkalemia-now with hypokalemia Metabolic acidosis-resolved Metabolic encephalopathy secondary to above-resolved Adrenal insufficiency nephrology Following-started on steroids/Decadron at this time Patient takes spironolactone, potassium, acetazolamide at home Decadron being titrated down by nephrology, at discharge will be on Decadron 1mg in AM and 0.5 mg at DC Left lower extremity cellulitis Blood cultures with no growth to date Patient completed antibiotics Chronic diastolic congestive heart failure CT chest did not show any interstitial edema or pleural effusions Takes acetazolamide and spironolactone at home Cardiology and nephrology consulted/following Stable Patient is off diuretics Monitor for volume overload improved with IV Lasix prn. Wean off oxygen as tolerated Chronic hypercapnic/hypoxic respiratory failure Continue supplemental oxygen Continue wearing home CPap Atrial fibrillation on chronic anticoagulation Eliquis stopped d/t decrease in Hgb no further melena or BRBPR resume eliquis in ~1 week Sotalol discontinued due to profound bradycardia with hypotension. Cardiology is following Continuous telemetry Elevated troponin Cardiology Following Elevated troponin deemed secondary to demand ischemia. Sacral wounds Small stage two gluteal wound-continue with daily dressing change with mepilex. Anxiety Xanax as needed. DVT PPX: SCD Code status: Full code Discharge Plan: SNF-awaiting appeal Time Spent Managing Pts Care (In Minutes): 44
[2024-09-25] MEDS: ALPRAZOLAM 0.5 MG TABLET PO ONE (16:53)
[2024-09-25] MEDS ORDERED: METOPROLOL TAR 25 MG TAB PO SCH (18:00)
--- NOTE | 2024-09-26 00:13 | PN ---
Date of Progress Note: 09/25/2024 Chief Complaint: Acute kidney injury, adrenal insufficiency, low potassium, melena, hematemesis, ane spring. Subjective: The patient underwent colonoscopy primarily. She presented to the hospital with general ized weakness. She was found to have hyponatremia, acute kidney injury. She received normal saline. Renal function improved, and hyponatremia resolved. Review of Systems: Denies chest pain, palpitations. Physical Examination: Lungs: Clear to auscultation bilaterally. Heart: S1, S2. Abdomen: Soft, benign. Extremities: Slight edema in both ankles. Impression And Plan: 1. Acute kidney injury due to prerenal azotemia, acute tubular necrosis, resolved. The patient is st able with renal function. Serum creatinine 0.6. Monitor renal panel. Avoid nephrotoxic medication. 2. Hypertension. Blood pressure controlled. Continue current medication regimen. 3. The patient has episodes of low blood pressure secondary to adrenal crisis. She is on dexamethaso ne. Weaned off midodrine accordingly. 4. Bilateral lower extremity venous stasis, cellulitis. Continue to monitor. Continue antibiotics. NELSY/MODL Voice ID: [id number] Report ID: [id number]
[2024-09-26] MEDS: METOPROLOL TARTRATE 5 MG/5 ML INJ IV STA (02:33)
[2024-09-26 05:51] LABS: Anion Gap 6.7 mEq/L (5.0-15.0); BUN Blood Urea Nitrogen 15.0 mg/dL (7-18); Glucose Level 148.0 mg/dL (74-106); Magnesium 1.5 mg/dL (1.6-2.4); Potassium 3.7 mEq/L (3.5-5.1)
[2024-09-26] MEDS: POTASSIUM CL SA 10 MEQ TAB PO ONE (09:42)
[2024-09-26] MEDS: Magnesium Sulfate 2gm IVPB 2 G/50 ML BAG IV ONE (09:44)
--- NOTE | 2024-09-26 10:29 | PN ---
Date of Progress Note: 09/26/2024 Subjective: The patient was admitted to the hospital with cellulitis, sepsis. Had acute kidney injury. Did not require any dialysis. The patient had hypernatremia, recovered. Physical Examination: Vital Signs: Blood pressure 131/69, pulse of 109, afebrile. Chest: Decreased air entry, bilateral base. Heart: S1, S2. Systolic murmur. Abdomen: Soft, nontender. Extremities: Venous stasis change, bilateral. Neurologic: Alert. Pleasantly confused. Laboratory Data: Hemoglobin 8.9. Sodium 140, potassium 3.7, bicarb 33, BUN 15, creatinine 0.5, calcium 8.3, magnesium 1.5. Current Medications: The patient on, it includes: 1. Dexamethasone. 2. Zofran. 3. Pantoprazole. 4. Tramadol. 5. KCl. Assessment And Plan: 1. Acute kidney injury secondary to prerenal, recovered, resolved. 2. Hypertension, currently hypotension secondary to adrenal insufficiency. Continue dexamethasone, and we will follow up with the Primary. I am going to go ahead and discontinue midodrine for the time being. 3. Adrenal insufficiency, adrenal crisis, as above. Continue dexamethasone. 4. Cellulitis, status post treatment. 5. Anemia. GI workup was negative. Time spent examining the patient [id number] reviewing data lab and the radiology placing order discussing the case with the patient discussing the case with the team members including hospitalist and nursing staff more than 55 minutes MALLIKA Voice ID: [id number] Report ID: [id number] KHADIJAH
--- NOTE | 2024-09-26 15:09 | P.PN ---
Date of Service: 09/26/24 Subjective: upset she is still in the hospital awaiting insurance approval notification to SNF No other acute events overnight ROS: 10 point ROS as noted above, otherwise negative Physical exam GEN: AAO x 3, no distress CV: Regular rate and rhythm, S1-S2 present Pulm: Symmetrical chest wall movement, on 1 LNC/ CPAP at night ABD: distended (obese),normal bowel sounds MSK: edema present to BLE Integumentary: Erythema to left lower extremity- improved, PICC line in place, RUE swelling noted-US negative for DVT Neuro: Normal speech Vitals reviewed Assessment: Melena Stercoral colonic ulcers in the distal rectum up to 6 cm with active bleeding Chronic Inactive Gastritis Acute blood loss anemia Hyponatremia Hyperkalemia-now with hypokalemia Metabolic acidosis Metabolic encephalopathy secondary to above Left lower extremity cellulitis Chronic diastolic congestive heart failure Chronic hypercapnic/hypoxic respiratory failure Atrial fibrillation on chronic anticoagulation Elevated troponin Sacral wounds Plan: Melena Stercoral colonic ulcers in the distal rectum up to 6 cm with active bleeding Chronic Inactive Gastritis Acute blood loss anemia Hypotension Patient was receiving Eliquis for A-fib. Eliquis discontinued due to rectal bleeding Continue Protonix BID Patient completed IV iron supplementation Patient seen by GI Dr. Olvera, colonoscopy done x 3 and reports colonic ulcers, 5 stercoral ulcers in the distal rectum up to 6 cm which showed evidence of bleeding. It also reported small sized uncomplicated internal hemorrhoids. Status post 7 units PRBC transfusion MiraLAX 1 capful 3 times daily to maintain BM 1-2 time daily Currently not actively bleeding She is currently tolerating soft diet Hemoglobin has been stable Continue PT. Echocardiogram shows EF of 30 to 35% hemoglobin stable Plan to resume Eliquis in around 1 week Hyponatremia-resolved Hyperkalemia-now with hypokalemia Metabolic acidosis-resolved Metabolic encephalopathy secondary to above-resolved Adrenal insufficiency nephrology Following-started on steroids/Decadron at this time Patient takes spironolactone, potassium, acetazolamide at home Decadron being titrated down by nephrology, at discharge will be on Decadron 1mg in AM and 0.5 mg at DC Left lower extremity cellulitis Blood cultures with no growth to date Patient completed antibiotics Chronic diastolic congestive heart failure CT chest did not show any interstitial edema or pleural effusions Takes acetazolamide and spironolactone at home Cardiology and nephrology consulted/following Stable Patient is off diuretics Monitor for volume overload improved with IV Lasix prn. Wean off oxygen as tolerated Chronic hypercapnic/hypoxic respiratory failure Continue supplemental oxygen Continue wearing home CPap Atrial fibrillation on chronic anticoagulation Eliquis stopped d/t decrease in Hgb no further melena or BRBPR resume eliquis in ~1 week Sotalol discontinued due to profound bradycardia with hypotension. Patient with sinus tachycardia/intermittent A-fib rates 110-120 Started on low-dose metoprolol 12.5 mg twice daily May need further titration Cardiology is following Continuous telemetry Elevated troponin Cardiology Following Elevated troponin deemed secondary to demand ischemia. Sacral wounds Small stage two gluteal wound-continue with daily dressing change with mepilex. Anxiety Xanax as needed. DVT PPX: SCD Code status: Full code Discharge Plan: SNF-awaiting appeal Time Spent Managing Pts Care (In Minutes): 44
[2024-09-27 05:39] LABS: Anion Gap 7.0 mEq/L (5.0-15.0); BUN Blood Urea Nitrogen 17.0 mg/dL (7-18); Glucose Level 153.0 mg/dL (74-106); Potassium 4.0 mEq/L (3.5-5.1)
[2024-09-27] MEDS: FUROSEMIDE 20 MG/ 2ML VIAL IV ONE (11:44)
--- NOTE | 2024-09-27 11:44 | PN ---
Date of Progress Note: 09/27/2024 Subjective: The patient was admitted to the hospital with acute kidney injury, hypernatremia, the patient treated, recovered. Acute kidney injury has been resolved. After colonoscopy, the patient developed low blood pressure. Workup showed adrenal insufficiency. The patient was started on dexamethasone and midodrine. Midodrine has been discontinued. Yesterday, blood pressure has been stable. Physical Examination: Vital Signs: When I saw the patient, blood pressure 136/77, pulse of 107, afebrile. Chest: Clear to auscultation. Heart: S1, S2 regular. Abdomen: Soft, morbidly obese. Could not appreciate any organomegaly. Extremities: Venous stasis change, bilateral. Laboratory Data: WBC 10.6, hemoglobin 8.9. Sodium 140, potassium 4, bicarb 34, BUN 17, creatinine 0.5, calcium 8.4. Current Medications: The patient is on include: 1. Albuterol. 2. Metoprolol 12.5 b.i.d. 3. Gabapentin. 4. Zofran. 5. Pantoprazole. 6. Tramadol. 7. KCl. 8. Dexamethasone 2 mg b.i.d. Assessment And Plan: 1. Acute kidney injury secondary to prerenal, recovered, resolved. 2. Hypernatremia secondary to poor intake, over-diuresis, resolved. 3. Adrenal crisis. Continue dexamethasone. Keep holding midodrine. 4. Cellulitis, as by primary. 5. Anasarca secondary to venous stasis change, stable. I am going to give single dose of Lasix today and we will follow up the patient. 6. Deconditioning. Continue PT/OT. Time spent examining the patient [id number] reviewing data lab and the radiology placing order discussing the case with the patient discussing the case with the team members including hospitalist and nursing staff more than 55 minutes MALLIKA Voice ID: [id number] Report ID: [id number] MTDD
[2024-09-27] MEDS: METOPROLOL TARTRATE 5 MG/5 ML INJ IV ONE (22:27)
[2024-09-28 12:25] LABS: Base Excess, VBG 12.2 mmol/L (-2.0-3.0); HCO3, Venous Blood Gas 36.5 mmol/L (21.0-29.0); O2 Saturation, VBG 96.2 % (40.0-70.0); PCO2, Venous Blood Gas 55 mmHg (41-51); PH, Venous Blood Gas 7.43 (7.32-7.42); PO2, Venous Blood Gas 81 mmHg (25-40)
[2024-09-28] MEDS: FUROSEMIDE 20 MG/ 2ML VIAL IV ONE (13:22)
--- NOTE | 2024-09-28 13:29 | P.PN ---
Date of Service: 09/28/24 Subjective: upset she is still in the hospital awaiting insurance approval notification to SNF No other acute events overnight working with PT ROS: 10 point ROS as noted above, otherwise negative Physical exam GEN: AAO x 3, no distress CV: Regular rate and rhythm, S1-S2 present Pulm: Symmetrical chest wall movement, on 1 LNC/ CPAP at night ABD: distended (obese),normal bowel sounds MSK: edema present to BLE Integumentary: Erythema to left lower extremity- improved, PICC line in place, RUE swelling noted-US negative for DVT Neuro: Normal speech Vitals reviewed Assessment: Melena Stercoral colonic ulcers in the distal rectum up to 6 cm with active bleeding Chronic Inactive Gastritis Acute blood loss anemia Hyponatremia Hyperkalemia-now with hypokalemia Metabolic acidosis Metabolic encephalopathy secondary to above Left lower extremity cellulitis Chronic diastolic congestive heart failure Chronic hypercapnic/hypoxic respiratory failure Atrial fibrillation on chronic anticoagulation Elevated troponin Sacral wounds Plan: Melena Stercoral colonic ulcers in the distal rectum up to 6 cm with active bleeding Chronic Inactive Gastritis Acute blood loss anemia Hypotension Patient was receiving Eliquis for A-fib. Eliquis discontinued due to rectal bleeding Continue Protonix BID Patient completed IV iron supplementation Patient seen by GI Dr. Olvera, colonoscopy done x 3 and reports colonic ulcers, 5 stercoral ulcers in the distal rectum up to 6 cm which showed evidence of bleeding. It also reported small sized uncomplicated internal hemorrhoids. Status post 7 units PRBC transfusion MiraLAX 1 capful 3 times daily to maintain BM 1-2 time daily Currently not actively bleeding She is currently tolerating soft diet Hemoglobin has been stable Continue PT. Echocardiogram shows EF of 30 to 35% hemoglobin stable Plan to resume Eliquis in around 1 week Hyponatremia-resolved Hyperkalemia-now with hypokalemia Metabolic acidosis-resolved Metabolic encephalopathy secondary to above-resolved Adrenal insufficiency nephrology Following-started on steroids/Decadron at this time Patient takes spironolactone, potassium, acetazolamide at home Decadron being titrated down by nephrology, at discharge will be on Decadron 1mg in AM and 0.5 mg at DC Left lower extremity cellulitis Blood cultures with no growth to date Patient completed antibiotics Chronic diastolic congestive heart failure Cardiology and nephrology consulted/following Stable Patient is off diuretics Monitor for volume overload improved with lasix prn. Wean off oxygen as tolerated Chronic hypercapnic/hypoxic respiratory failure Continue supplemental oxygen Continue wearing home CPap Atrial fibrillation on chronic anticoagulation Eliquis stopped d/t decrease in Hgb no further melena or BRBPR resume eliquis in ~1 week Sotalol discontinued due to profound bradycardia with hypotension. Patient with sinus tachycardia/intermittent A-fib rates 110-120 Started on low-dose metoprolol 12.5 mg twice daily May need further titration Cardiology is following Continuous telemetry Elevated troponin Cardiology Following Elevated troponin deemed secondary to demand ischemia. Sacral wounds Small stage two gluteal wound-continue with daily dressing change with mepilex. Anxiety Xanax as needed. DVT PPX: SCD Code status: Full code Discharge Plan: SNF-awaiting appeal Time Spent Managing Pts Care (In Minutes): 25
[2024-09-28] MEDS: METOPROLOL TARTRATE 5 MG/5 ML INJ IV PRN (15:24)
[2024-09-28] MEDS: METOPROLOL TAR 25 MG TAB PO SCH (17:08)
--- NOTE | 2024-09-28 19:51 | PN ---
Date of Progress Note: 09/28/2024 Chief Complaint: Acute kidney injury. Subjective: Patient presented to the hospital with sepsis. She was admitted to ICU. She was found to have hyperkalemia and hyponatremia. The patient received IV fluids, and for hypotension, patient was on pressor and midodrine. Recently, she was started on dexamethasone and midodrine was discontin ued. The patient has presented adrenal insufficiency and remains on dexamethasone. Review of Systems: Denies chest pain, palpitation. Physical Examination: Lungs: Diminished breath sound at bases. Heart: S1, S2. Abdomen: Soft, benign. Extremities: Bilateral venous stasis changes, swellings in both ankles. Impression And Plan: 1. Acute kidney injury secondary to prerenal azotemia, nonoliguric, acute tubular necrosis. The cecile ent responded to IV fluids. Renal function improved to baseline. 2. Recently, the patient had episode of hypernatremia secondary to poor p.o. intake and secondary to diuretic treatment. Electrolytes are stabilizing. The patient has peripheral edema. She will have Lasix as needed. 3. Adrenal crisis. Continue dexamethasone and midodrine as it is on hold. 4. Cellulitis. Management per Primary. 5. Anasarca due to venous stasis changes, stable, Lasix as needed. 6. Deconditioning. Patient is undergoing PT, OT. EB/MODL Voice ID: [id number] Report ID: [id number]
[2024-09-28] MEDS: METOPROLOL TAR 25 MG TAB PO ONE (23:10)
[2024-09-29] MEDS: LORAZEPAM 1 MG TABLET PO ONE (05:22)
[2024-09-29 07:20] LABS: Hematocrit 29.9 % (36.0-45.0); Hemoglobin 10.1 g/dL (12.0-15.0); MCH 30.9 pg (27.0-35.0); MCHC 33.8 g/dL (32.0-36.0); MCV 91.4 fL (80-100); MPV 7.6 fL (7.6-11.3); RBC Red Blood Cell Count 3.27 M/uL (3.86-4.86); White Blood Count 8.70 thou/uL (4.3-10.9)
[2024-09-29 07:34] LABS: Anion Gap 3.6 mEq/L (5.0-15.0); BUN Blood Urea Nitrogen 23.0 mg/dL (7-18); Glucose Level 107.0 mg/dL (74-106); Potassium 3.6 mEq/L (3.5-5.1)
[2024-09-29] MEDS: POTASSIUM CL SA 10 MEQ TAB PO ONE (08:34)
[2024-09-29] MEDS ORDERED: APIXABAN 5 MG TABLET PO SCH (09:00)
--- NOTE | 2024-09-29 09:00 | P.PN ---
Date of Service: 09/29/24 Subjective: Nursing staff reported change in stool colorred Concern for possible bleeding Discussed with patient, she ate an entire tray of berries including raspberries, blueberries, blackberries Stool possibly related to large intake of berries with nothing else to eat Hemoglobin up to day 10.1 ROS: 10 point ROS as noted above, otherwise negative Physical exam GEN: AAO x 3, no distress CV: Regular rate and rhythm, S1-S2 present Pulm: Symmetrical chest wall movement, on 1 LNC/ CPAP at night ABD: distended (obese),normal bowel sounds MSK: edema present to BLE Integumentary: Erythema to left lower extremity- improved, PICC line in place, RUE swelling noted-US negative for DVT Neuro: Normal speech Vitals reviewed Assessment: Melena Stercoral colonic ulcers in the distal rectum up to 6 cm with active bleeding Chronic Inactive Gastritis Acute blood loss anemia Hyponatremia Hyperkalemia-now with hypokalemia Metabolic acidosis Metabolic encephalopathy secondary to above Left lower extremity cellulitis Chronic diastolic congestive heart failure Chronic hypercapnic/hypoxic respiratory failure Atrial fibrillation on chronic anticoagulation Elevated troponin Sacral wounds Plan: Melena Stercoral colonic ulcers in the distal rectum up to 6 cm with active bleeding Chronic Inactive Gastritis Acute blood loss anemia Hypotension Patient was receiving Eliquis for A-fib. Eliquis discontinued due to rectal bleeding Continue Protonix BID Patient completed IV iron supplementation Patient seen by GI Dr. Olvera, colonoscopy done x 3 and reports colonic ulcers, 5 stercoral ulcers in the distal rectum up to 6 cm which showed evidence of bleeding. It also reported small sized uncomplicated internal hemorrhoids. Status post 7 units PRBC transfusion MiraLAX 1 capful 3 times daily to maintain BM 1-2 time daily Currently not actively bleeding She is currently tolerating soft diet Hemoglobin has been stable Continue PT. Echocardiogram shows EF of 30 to 35% hemoglobin stable Plan to resume Eliquis in around 1 week We will continue to monitor stool throughout day Hyponatremia-resolved Hyperkalemia-now with hypokalemia Metabolic acidosis-resolved Metabolic encephalopathy secondary to above-resolved Adrenal insufficiency nephrology Following-started on steroids/Decadron at this time Patient takes spironolactone, potassium, acetazolamide at home Decadron being titrated down by nephrology, at discharge will be on Decadron 1mg in AM and 0.5 mg at DC Left lower extremity cellulitis Blood cultures with no growth to date Patient completed antibiotics Chronic diastolic congestive heart failure Cardiology and nephrology consulted/following Stable Patient is off diuretics Monitor for volume overload improved with lasix prn. Wean off oxygen as tolerated Chronic hypercapnic/hypoxic respiratory failure Continue supplemental oxygen Continue wearing home CPap Atrial fibrillation on chronic anticoagulation Eliquis stopped d/t decrease in Hgb no further melena or BRBPR resume eliquis in ~1 week Sotalol discontinued due to profound bradycardia with hypotension. Patient with sinus tachycardia/intermittent A-fib rates 110-120 Started on low-dose metoprolol 12.5 mg twice daily May need further titration Cardiology is following Continuous telemetry Elevated troponin Cardiology Following Elevated troponin deemed secondary to demand ischemia. Sacral wounds Small stage two gluteal wound-continue with daily dressing change with mepilex. Anxiety Xanax as needed. DVT PPX: SCD Code status: Full code Discharge Plan: SNF-awaiting appeal Time Spent Managing Pts Care (In Minutes): 25 <Umesh Chavez - Last Filed: 09/29/24 08:59> Plan of care discussed with Umesh Chavez. Reported dark red stool. Stable hemoglobin. There is a concern patient is to maybe colored a large bowl of berries she ate. Continue to monitor hemoglobin and monitor for active bleeding. <jase casper - Last Filed: 09/30/24 14:57>
[2024-09-29 10:38] LABS: White Blood Cell Scan OK (OK)
[2024-09-29 10:39] LABS: Anisocytosis 1+; Blood Morphology Comment NOTED (NOT SEEN)
[2024-09-29] MEDS: FUROSEMIDE 20 MG/ 2ML VIAL IV SCH (16:37)
--- NOTE | 2024-09-29 23:46 | PN ---
Date of Progress Note: 09/29/2024 Chief Complaint: Acute kidney injury. History Of Present Illness: The patient presented to the hospital with sepsis. She was admitted to ICU. She was found to have hyperkalemia and hyponatremia. She received IV fluids for hypotension an d pressors and midodrine. Recently, she was started on dexamethasone and midodrine was discontinued. The patient presented with adrenal insufficiency and remains on dexamethasone. Review of Systems: Denies chest pain, palpitations. Physical Examination: Lungs: Diminished breath sound at bases. No wheezing. No rhonchi. Heart: S1, S2. Abdomen: Soft. Extremities: Swelling in both ankles. Impression And Plan: 1. Acute kidney injury secondary to prerenal azotemia and nonoliguric acute tubular necrosis. The pa tient responded to IV fluids. Renal function improved to baseline. Recently, the patient had episod e of hyponatremia secondary to poor p.o. intake and secondary to diuretic therapy. Electrolytes are stabilizing. The patient will continue Lasix for volume control as she has edema and fluid overload. 2. Adrenal crisis. Continue dexamethasone and midodrine, currently is on hold. 3. Cellulitis, management by primary. 4. Lower extremity edema due to venous stasis changes, stable. Continue low-sodium diet. EB/MODL Voice ID: [id number] Report ID: [id number]
--- NOTE | 2024-09-30 08:59 | P.DS ---
Admission Date: 08/25/24 Discharge Date: 10/03/24 Disposition: TRANSFER TO SNF - REHAB Discharge Condition: GOOD Reason for Admission: Melena, hematochezia, anemia, hypotension, probable adrenal insuff, low K Brief History of Present Illness: Diagnosis Melena Stercoral colonic ulcers in the distal rectum up to 6 cm with active bleeding Chronic Inactive Gastritis Acute blood loss anemia Hyponatremia Hyperkalemia-now with hypokalemia Metabolic acidosis Metabolic encephalopathy secondary to above Left lower extremity cellulitis Chronic diastolic congestive heart failure Chronic hypercapnic/hypoxic respiratory failure Atrial fibrillation on chronic anticoagulation Elevated troponin Sacral wounds [facility] 08/25/2024 63-year-old female with history of chronic hypercapnic/hypoxic respiratory failure, chronic diastolic congestive heart failure, DARIO, atrial fibrillation on chronic anticoagulation, lymphedema presents emergency department after having multiple falls, sliding out of her recliner at home. Her daughter bedside reports that she has had a GI bug with nausea/vomiting/diarrhea for the past 1 week or so, she also has wounds on her sacrum has been treating with Bactroban at home. Patient was evaluated here in the emergency department her labs were significant for a sodium of 123 potassium of 5.9 bicarb of 20 troponin 122.8 BNP 3646 serum osmolality 275 urine osmolality 406 urine random sodium less than 15 white blood count 15.9 hemoglobin 11.3 ABG was obtained which showed a pH of 7.173 pCO2 44.3 bicarb of 15.6. In the ER she was given medications for the hyperkalemia as well as IV Lasix and 500 mL of normal saline. I discussed the case with nephrology who recommended a bicarb drip overnight and checking the chemistry every 4 hours until the morning. He also appears to be some cellulitis of the left lower extremity with a small ulceration present to the anterior portion of the lower leg. Patient is very lethargic like Hospital Course: Patient is significantly debilitated/weak after this prolonged hospitalization, she has been participating with PT but is only strong enough so far for bed exercises. She would greatly benefit with further PT and a longterm facility prior to discharge from the hospital. She has been accepted to SNF for further PT before returning home. In regard to her home medications her Eliquis has been discontinued for now given her significant bleeding. She will need follow-up with cardiology for a watchman placement so that she does not need to take Eliquis as that is causing continued GI bleeds. She was also on sotalol for atrial fibrillation but developed profound bradycardia and hypotension, this medication was discontinued by cardiology as well. Heart rate was coming back up and irregular so she was started on metoprolol which has been titrated up to 25mg BID at this time. At discharge to the longterm facility patient should be on a low residual diet, she should take polyethylene glycol 17 g daily as needed and up to 3 times daily to promote regular bowel movements to prevent further rectal ulcerations which caused her bleeding Additionally patient's spironolactone, acetazolamide have been discontinued, she has been tolerating this well currently and not significantly overloaded, it is possible in the coming weeks she may need her diuretics resumed, her volume status should be monitored closely and she should follow-up with cardiology and her primary care doctor soon as possible. Melena Stercoral colonic ulcers in the distal rectum up to 6 cm with active bleeding Chronic Inactive Gastritis Acute blood loss anemia Patient was receiving Eliquis for A-fib. Eliquis was discontinued due to rectal bleeding but can be resumed in ~one week Continue Protonix BID Patient completed IV iron supplementation Patient seen by GI Dr. Olvera, colonoscopy done x 3 and reports colonic ulcers, 5 stercoral ulcers in the distal rectum up to 6 cm which showed evidence of bleeding. It also reported small sized uncomplicated internal hemorrhoids. Needs to have at least daily bowel movement, recommend daily MiraLAX which can be increased in frequency as needed to achieve 1-3 bowel movements per day to prevent recurrence of ulcers in the rectum-this is very important Right upper extremity swelling Ultrasound was performed, negative for DVT Right upper extremity PICC removed elevated as tolerated and swelling resolved Hyponatremia-resolved Hyperkalemia-now with hypokalemia Metabolic acidosis-resolved Metabolic encephalopathy secondary to above-resolved Adrenal insufficiency nephrology Followed-started on Decadron Stopped spironolactone, potassium, acetazolamide as there is no significant edema and blood pressure had been low, continue to monitor volume status closely nephrology titrating Decadron, at discharge will be on Decadron 1mg in AM and 0.5 mg at DC Left lower extremity cellulitis Blood cultures with no growth to date Patient completed antibiotics Chronic diastolic congestive heart failure CT chest did not show any interstitial edema or pleural effusions Remained stable Patient is off diuretics Monitor for volume overload improved with as needed Lasix Chronic hypercapnic/hypoxic respiratory failure Continued supplemental oxygen Continued wearing home CPap Atrial fibrillation on chronic anticoagulation Eliquis stopped d/t decrease in Hgb no further melena or BRBPR resume eliquis in the next ~ 1 week Sotalol discontinued due to profound bradycardia with hypotension. HR elevated after stopping sotalol started on metoprolol 12.5mg bid, tolerating but still a little on the high side titrated up to 25mg bid Sacral wounds Small stage two gluteal wound-continue with daily dressing change with mepilex. Anxiety Xanax as needed. Physical exam GEN: AAO x 3, NAD, afebrile, good conversation CV: Afib with controlled heart rate, S1-S2 present Pulm: Clear BBS, on 2 L NC ABD: distended (obese), soft and nontender on palpation MSK: edema present to BLE Integumentary: Erythema to left lower extremity Neuro: Normal speech Vital Signs/Physical Exam: Temp Pulse Resp BP Pulse Ox 97.7 F 112 H 18 110/74 93 09/30/24 04:00 09/30/24 08:16 09/30/24 04:00 09/30/24 08:16 09/30/24 04:00 Laboratory Data at Discharge: WBC 8.70 thou/uL (4.3-10.9) 09/29/24 07:10 Hgb 10.1 g/dL (12.0-15.0) L 09/29/24 07:10 Hct 29.9 % (36.0-45.0) L 09/29/24 07:10 Plt Count 181 thou/uL (152-406) 09/29/24 07:10 PT 12.2 SECONDS (10-13.0) 09/10/24 04:52 INR 1.07 09/10/24 04:52 APTT 28.3 SECONDS (27.2-37.4) 09/10/24 04:52 Sodium 140 mEq/L (136-145) 09/29/24 07:10 Potassium 3.6 mEq/L (3.5-5.1) 09/29/24 07:10 BUN 23 mg/dL (7-18) H 09/29/24 07:10 Creatinine 0.59 mg/dL (0.55-1.02) 09/29/24 07:10 Glucose 107 mg/dL (74-106) H 09/29/24 07:10 Uric Acid 7.8 mg/dL (2.6-6.0) H 08/27/24 05:15 Phosphorus 2.8 mg/dL (2.5-4.9) 09/17/24 04:55 Magnesium 2.1 mg/dL (1.6-2.4) 09/26/24 15:54 Total Bilirubin 0.3 mg/dL (0.2-1.0) 09/15/24 16:38 AST 22 U/L (15-37) 09/15/24 16:38 ALT 15 U/L (13-56) 09/15/24 16:38 Alkaline Phosphatase 72 U/L (45-117) 09/15/24 16:38 Lipase 454 U/L (13-75) H 08/25/24 13:50 Home Medications: Furosemide 40 mg PO TID 10/10/21 Benzonatate [Tessalon Perle*] 100 mg PO TID PRN #30 cap 04/19/22 Budesonide/Glycopyr/Formoterol [Breztri Aerosphere Inhaler] 1 puff IH BID 11/17/22 Ipratropium Neb [Atrovent*] 0.5 mg NEB QID 11/17/22 Albuterol Sulfate [Albuterol Sulfate Hfa] 2 puff IH Q6HP PRN 05/19/24 Gabapentin 300 mg PO TID 05/19/24 Ipratropium Reva [Atrovent Hfa] 2 puff IH QID 05/19/24 Sertraline [Zoloft*] 50 mg PO DAILY 05/19/24 Atorvastatin Calcium [Lipitor] 80 mg PO BEDTIME 08/26/24 Albuterol Neb [Proventil 0.083% Neb Soln] 2.5 mg NEB [id number] PRN amp 09/22/24 Pantoprazole [Protonix Tab*] 40 mg PO BIDAC #0 tab 09/22/24 traMADol HCL [Ultram*] 100 mg PO BID PRN tab 09/22/24 Metoprolol Tartrate [Lopressor*] 25 mg PO BID 6AM 6PM #30 tab 09/29/24 Magnesium Oxide [Mag 0X*] 400 mg PO BID tab 10/02/24 Nystatin Powder [Mycostatin (Powder)*] 1 appl TOP DAILY PRN bottle 10/02/24 New Medications: Metoprolol Tartrate [Lopressor*] 25 mg PO BID 6AM 6PM #30 tab Physician Discharge Instructions: Patient was initially admitted to the hospital on 08/25 for hyponatremia, hyperkalemia, metabolic acidosis, hypercapnic/hypoxic respiratory failure. Her spironolactone, acetazolamide were discontinued, she was on antibiotics for suspected left lower extremity cellulitis which she has completed. She used CPAP at night to help manage her chronic hypercapnic/hypoxic respiratory failure. Her hospitalization was complicated with melena, her Eliquis was held and she underwent EGD which showed gastritis, gastric ulcer and it was recommended that patient continue with twice daily PPI. She had iron deficiency anemia and was given IV iron which she also completed during her stay. Patient then began having bright red blood per rectum, she was again seen by GI who performed colonoscopy, the first colonoscopy had very poor prep but did note some ulcerations presents, she underwent 2 further colonoscopies which showed multiple stercoral ulcers in the rectum with 1 bleeding vessel on which 2 endoclips were placed. During her hospitalization she received a total of 7 units of packed red blood cells. Her hemoglobin has been stable since then with no further significant episodes of melena or hematochezia, had a small amount bright red blood afternoon 09/28. Additionally she was hypotensive after the colonoscopies including the prep and bleeding, nephrology was following and she was diagnosed with adrenal insuff iciency/crisis. She was started on Decadron which has been tapered down as well as midodrine. She has been tolerating these well and blood pressure is stable. At discharge she will be prescribed Decadron 1 mg in the morning and 0.5 mg at discharge. The midodrine is 5 mg twice daily with hold parameters. Patient is significantly debilitated/weak after this prolonged hospitalization, she has been participating with PT but is only strong enough so far for bed exercises. In regard to her home medications her Eliquis has been discontinued for now given her significant bleeding. This will need to be held until Dr. Olvera restarts with close monitoring for bleeding. Please follow up with Dr. Olvera for a restart date and follow up with Dr. Lopez, cardiology, for continued monitoring. She was also on sotalol for atrial fibrillation but developed profound bradycardia and hypotension, this medication was discontinued by cardiology as well. Heart rate was coming back up and irregular so she was started on metoprolol which has been titrated up to 25mg BID at this time At discharge to the longterm facility patient should be on a low residual diet, she should take polyethylene glycol 17 g daily as needed and up to 3 times daily to promote regular bowel movements to prevent further rectal ulcerations which caused her bleeding Additionally patient's spironolactone, acetazolamide have been discontinued, she has been tolerating this well currently and not significantly overloaded, it is possible in the coming weeks she may need her diuretics resumed, her volume status should be monitored closely and she should follow-up with cardiology and her primary care doctor soon as possible. 1. Please call and schedule a follow-up appointment with your PCP in 3-5 days - Please follow-up with your PCP for medication refills/adjustments 2. Please call and schedule a follow-up appointment with Dr. Olvera in 3-5 days 3. Please call and schedule a follow up appointment with your head athletic trainer/strength coach for Afib. Eliquis has been stopped 4. Please call and schedule a follow-up with cardiology, Dr. Lopez, concerning her Afib, she will need a "watchman" procedure to avoid needing a blood thinner. Her ulcer is making a blood thinner a unsafe and would increase bleeding. 5. Continue low residual diet 6. activity restrictions- fall precautions, work with physical therapy 7. Return to the ED if symptoms worsen Diet: Regular Activity: Fall precautions Followup: Luis Lopez MD [ACTIVE - CAN ADMIT] - (within 2-4 weeks) Gutierrez Romero MD [Primary Care Provider] - 1-2 Weeks Hira Olvera MD [ASSOCIATE-ACTIVE - CAN ADMIT] - (Within 2 to 4 weeks)
[2024-09-30 10:31] LABS: Hematocrit 28.5 % (36.0-45.0); Hemoglobin 9.7 g/dL (12.0-15.0); MCH 31.3 pg (27.0-35.0); MCHC 34.1 g/dL (32.0-36.0); MCV 91.7 fL (80-100); MPV 7.7 fL (7.6-11.3); RBC Red Blood Cell Count 3.10 M/uL (3.86-4.86); White Blood Count 8.80 thou/uL (4.3-10.9)
[2024-09-30 10:32] LABS: Absolute Lymphocytes (CBC) 1.3 K/uL (0.7-4.9); Nucleated RBC Absolute Count 0.0 (0-0); Nucleated Red Blood Cells % 0.1 % (0-0)
[2024-09-30 10:52] LABS: Anion Gap 7.9 mEq/L (5.0-15.0); BUN Blood Urea Nitrogen 19.0 mg/dL (7-18); Glucose Level 100.0 mg/dL (74-106); Magnesium 1.2 mg/dL (1.6-2.4); Potassium 2.9 mEq/L (3.5-5.1)
--- NOTE | 2024-09-30 11:15 | P.PN ---
Date of Service: 09/30/24 Patient is a 64-year-old woman known to me from previous surgical intervention several years ago. She has been doing well from that surgical standpoint however was recently hospitalized with gastrointestinal issues including gastrointestinal bleeding as noted per previous endoscopy reports and Dr. Ramey's progress notes. Patient presents with possible recurrent gastrointestinal bleeding and as such I am consulted for the above issue. -Upon entry to the room I attempted to get a history and physical and discussed the case specifics with the patient however she states she does not want any surgical intervention of any kind whatsoever and does not want any surgical recommendations. She only wants to go home. She states that she further does not agree to proceed with the history and physical and workup at this point as she only wants to go home. She is refusing any other specifics and as such I am unable to get a proper history physical and appropriate information for the ongoing workup. - I will sign off at this time. If patient changes her mind and would consider surgical consultation I remain available.
[2024-09-30] MEDS: POTASSIUM 25 MEQ EFFERV TAB PO ONE (11:34)
[2024-09-30] MEDS: Magnesium Sulfate 2gm IVPB 2 G/50 ML BAG IV ONE (11:35)
--- NOTE | 2024-09-30 12:09 | P.PN ---
Date of Service: 09/30/24 Subjective: Nursing staff showed blood clots collected in pull up after changing this morning, Likely colonic ulcer intermittent bleeding Urine collection can full of red tinged blood likely from the pure wick suctioning blood from rectum H/H will recheck H/H and will monitor for more bleeding overnight Patient refused Dr. Little's evaluation She states she is ready for discharge, no acute distress ROS: 10 point ROS as noted above, otherwise negative Physical exam GEN: Awake and oriented x3, NAD CV: Afib, S1-S2 present Pulm: Clear BBS, on 2 LNC/ CPAP at night ABD: distended (obese),normal bowel sounds MSK: edema present to BLE Integumentary: Erythema to left lower extremity- improved, PICC line in place, RUE swelling noted-US negative for DVT Neuro: Normal speech, good conversation Vitals reviewed Assessment: Melena Stercoral colonic ulcers in the distal rectum up to 6 cm with active bleeding Chronic Inactive Gastritis Acute blood loss anemia Hyponatremia Hyperkalemia-now with hypokalemia Metabolic acidosis Metabolic encephalopathy secondary to above Left lower extremity cellulitis Chronic diastolic congestive heart failure Chronic hypercapnic/hypoxic respiratory failure Atrial fibrillation on chronic anticoagulation Elevated troponin Sacral wounds Plan: Melena Stercoral colonic ulcers in the distal rectum up to 6 cm with active bleeding Chronic Inactive Gastritis Acute blood loss anemia Hypotension Patient was receiving Eliquis for A-fib. Eliquis discontinued due to rectal bleeding, Stopped since 09/06 Continue Protonix BID Patient completed IV iron supplementation Patient seen by GI Dr. Olvera, colonoscopy done x 3 and reports colonic ulcers, 5 stercoral ulcers in the distal rectum up to 6 cm which showed evidence of bleeding. It also reported small sized uncomplicated internal hemorrhoids. Status post 7 units PRBC transfusion MiraLAX 1 capful 3 times daily to maintain BM 1-2 time daily Currently not actively bleeding She is currently tolerating soft diet Hemoglobin has been stable Continue PT Echocardiogram shows EF of 30 to 35% hemoglobin stable Plan to resume Eliquis in around 1 week We will continue to monitor stool throughout day Hyponatremia-resolved Hyperkalemia-now with hypokalemia Metabolic acidosis-resolved Metabolic encephalopathy secondary to above-resolved Adrenal insufficiency nephrology Following-started on steroids/Decadron at this time Patient takes spironolactone, potassium, acetazolamide at home Decadron being titrated down by nephrology, at discharge will be on Decadron 1mg in AM and 0.5 mg at DC Left lower extremity cellulitis Blood cultures with no growth to date Patient completed antibiotics Chronic diastolic congestive heart failure Cardiology and nephrology consulted/following Stable Patient is off diuretics Monitor for volume overload improved with lasix prn. Wean off oxygen as tolerated Chronic hypercapnic/hypoxic respiratory failure Continue supplemental oxygen Continue wearing home CPap Atrial fibrillation on chronic anticoagulation Eliquis stopped since 09/06 Sotalol discontinued due to profound bradycardia with hypotension. Patient with sinus tachycardia/intermittent A-fib rates 110-120 Started on low-dose metoprolol 12.5 mg twice daily May need further titration Cardiology is following- will folllow up for possible watchman, will hold aspirin until this new bleed has resolved Continuous telemetry Elevated troponin Cardiology Following Elevated troponin deemed secondary to demand ischemia. Sacral wounds Small stage two gluteal wound-continue with daily dressing change with mepilex. Anxiety Xanax as needed. DVT PPX: SCD Code status: Full code Discharge Plan: 24 hours Time Spent Managing Pts Care (In Minutes): 30 <Adriana Kessler - Last Filed: 09/30/24 13:33> Patient's diaper examined and noted rectal bleeding with blood clots. Patient has undergone multiple colonoscopies and noted to have ulcers in the colon and rectum. Rectal bleed likely related to these colonic and rectal ulcers. General surgery Dr. Little was consulted to evaluate as no GI available. Dr. Olvera had earlier recommended surgery evaluation if the patient rebleeds. Patient refused examination under anesthesia and sigmoidoscopy today. Continue to monitor for active bleeding Monitor H&H and transfuse as needed. Patient has been accepted to SNF pending sensation of rectal bleed. <jase casper - Last Filed: 10/01/24 17:23>
[2024-09-30 14:01] LABS: Hematocrit 30.4 % (36.0-45.0); Hemoglobin 10.1 g/dL (12.0-15.0)
[2024-09-30] MEDS: ALPRAZOLAM 0.5 MG TABLET PO ONE ×2 (14:37→23:53)
--- NOTE | 2024-09-30 19:21 | PN ---
Subjective: No overnight event. Electrolytes stable. Continue management as per primary team. Objective: Vital Signs: Temperature 98, pulse rate 112, blood pressure 132/71. General: Awake and alert, not in distress. Neck: Obese. Neck is supple. No elevated JVD. Heart: Regular rate and rhythm. Normal S1, S2. Chest: Clear to auscultation bilaterally. No rales or wheezes. Abdomen: Soft, nontender. Extremities: Has swelling. Has venous stasis. Labs: White count 8.8, hemoglobin 9.7. Sodium 140, potassium 2.9, BUN is 19, creatinine 0.5, magnes ium 1.2. Assessment And Plan: 1. Acute kidney injury, resolved. Creatinine down to 0.8. Continue to monitor. 2. Hyponatremia, resolved. Sodium improving. Diet as tolerated. 3. Persistent hypokalemia and hypomagnesemia. We will start on daily supplement. Diet as tolerated. 4. Melena, status post colonoscopy that showed colonic ulcers in the distal rectum as per GI. Contin ue PPI. Monitor H and H. 5. Heart failure, reduced ejection fraction. Continue current dose of Lasix. Monitor volume status. Thanks for allowing me to participate in patient's care. Total time spent 55 minutes including docum entation, reviewing labs, and placing orders. BRYAN/CARITO Voice ID: [id number] Report ID: [id number]
[2024-09-30] MEDS: MAGNESIUM OXIDE 400 MG TAB PO SCH (19:56)
[2024-09-30] MEDS: GABAPENTIN 100 MG CAP PO PRN (21:53)
[2024-10-01 04:38] LABS: Anion Gap 3.3 mEq/L (5.0-15.0); BUN Blood Urea Nitrogen 16.0 mg/dL (7-18); Glucose Level 137.0 mg/dL (74-106); Magnesium 1.6 mg/dL (1.6-2.4); Potassium 3.3 mEq/L (3.5-5.1)
[2024-10-01] MEDS: POTASSIUM 25 MEQ EFFERV TAB PO SCH (07:36)
[2024-10-01] MEDS: MAGNESIUM SULFATE 1 gm IVPB 1 GM/100 ML BAG IV ONE (07:37)
[2024-10-01 07:58] LABS: Absolute Lymphocytes (CBC) 1.8 K/uL (0.7-4.9); Hematocrit 24.4 % (36.0-45.0); Hemoglobin 8.4 g/dL (12.0-15.0); MCH 31.6 pg (27.0-35.0); MCHC 34.3 g/dL (32.0-36.0); MCV 92.2 fL (80-100); MPV 8.5 fL (7.6-11.3); Nucleated RBC Absolute Count 0.0 (0-0); Nucleated Red Blood Cells % 0.2 % (0-0); RBC Red Blood Cell Count 2.65 M/uL (3.86-4.86); White Blood Count 7.50 thou/uL (4.3-10.9)
[2024-10-01 08:42] LABS: Blood Morphology Comment NOT SEEN (NOT SEEN); Platelets Clumped MANY; White Blood Cell Scan OK (OK)
[2024-10-01] MEDS ORDERED: POTASSIUM 25 MEQ EFFERV TAB PO ONE (09:00)
[2024-10-01] MEDS: NA CHLORIDE 0.9% 500 ML ONE (10:28)
[2024-10-01] MEDS ORDERED: Phenylephrine HCl 10 MG/ML 1 ML VIAL ONE (11:37)
[2024-10-01] MEDS: EPINEPHRINE 1 MG/ML VIAL ONE (12:00)
[2024-10-01] MEDS: NA CHLORIDE 0.9% 1,000 ML ONE (12:05)
[2024-10-01] MEDS: LIDOCAINE HCL/EPINEPHRINE 20 ML MDV ONE (12:55)
[2024-10-01] MEDS: LIDOCAINE JELLY 2% 5 ML SYRINGE TOP ONE (13:22)
--- NOTE | 2024-10-01 13:29 | P.OP ---
Preoperative diagnosis: Rectal Bleeding Postoperative diagnosis: Rectal Bleeding Primary procedure: Exam under anesthesia Secondary procedure: Ligation of Bleeding Visible Vessel @ 12 oclock Other procedure(s): Ligation of bleeding linear ulcer Anesthesia: MAC + Local Estimated blood loss: 30cc Specimen: Anal Polyps x 2 Findings: bleeding visible vessel @ 12 oclock, bleeing linear ulcers Complications: None Implants: Avatene Powder, Ultrafoam Transferred to: ICU Condition: Serious
--- NOTE | 2024-10-01 13:31 | P.OP ---
Preoperative diagnosis: Need for IV Access Postoperative diagnosis: Need for IV Access Primary procedure: Placement of RIGHT Femoral Vein Triple Lumen Central Venous Catheter Secondary procedure: Ultrasound guidance, microintroducer 5Fr set used Anesthesia: Local 1% lidocaine Estimated blood loss: 10cc Specimen: none Findings: dark non-pulsatile blood returned Complications: None Implants: Triple Lumen Central Venous Catheter Transferred to: ICU Condition: Serious
--- NOTE | 2024-10-01 13:53 | CON ---
Date of Consultation: 10/01/2024 Brief Hpi: The patient is a 64-year-old woman known to me from previous interactions whereby she had a bowel obstruction which I performed an exploratory laparotomy from a hernia. She did well with th at procedure postoperatively and was several years ago. She presents on 08/25/2024 with a history of chronic hypercapnia, hypoxic respiratory failure, chronic diastolic CHF, obstructive sleep apnea, at rial fibrillation, on chronic anticoagulation, lymphedema, had multiple falls and decreased mental st atus. She thought she had some gastrointestinal infection with nausea, vomiting, diarrhea that her karie reed had reported to the medical staff at that point. She has been in the hospital for [facility] month. She has had endoscopy as well with Dr. Olvera. She has had episodes of gastrointestina l bleed where a visible vessel was appreciated in the rectum as well as some ulcerations consistent w ith stercoral ulcers that Dr. Olvera managed on those occasions endoscopically with a colonoscope. S he was doing well until recently. She has a recurrent upper gastrointestinal bleeding. I am consult ed to see the patient regarding this recurrent gastrointestinal bleeding. She has had multiple episo lor her initial contact with me yesterday. She stated that she did not want any surgical interventio n at that time and she wanted only go home. However, she had multiple significant bleeding episodes per rectum since that over the course of the evening and now she has expressed to me that she would l danny me to do whatever it takes to get her fixed. She states that she does not have any significant p ain, but she feels weak and fatigued now, worse so than before after her episodes of gastrointestinal bleeding and she is ready to proceed. Past Medical History: COPD, hypertension, hyperlipidemia, obstructive sleep apnea, cellulitis, chron ic diastolic congestive heart failure, atrial fibrillation on chronic anticoagulation. Past Surgical History: Includes , hip and ankle surgery, exploratory laparotomy with repair of hernia for small bowel obstruction. Allergies: NO KNOWN DRUG ALLERGIES. Home Medications: Include Lasix, Lipitor, Betapace, Aldactone, Eliquis, Tessalon Perles, Proventil, Norvasc, budesonide, Atrovent, albuterol, gabapentin, Atrovent HFA, Zoloft, Bactroban for a sacral wo und, and acetazolamide. Social History: She is currently unemployed after her fall. She lives with her daughter. She state s there is a history of stomach cancer in her mother. She drinks alcohol socially. She denies recre ational drug use. Denies smoking at this time. Review of Systems: A 10-point review of systems, she is currently somewhat more lethargic than my last contact with her earlier and I am unable to get a complete review of systems at this time. Physical Examination: General: She was lethargic, but arousable. She did answer questions this morning with respect to pe rson, place, time, and event. HEENT: She is normocephalic. Her sclerae were anicteric. Her mucous membranes were somewhat dry. Neck: Supple without JVD. Chest: Normal expansion to excursion. Cardiovascular: Diminished bilaterally. Pulmonary: Pulmonary was decreased bilaterally. Cardiovascular: Regular rate, irregular rhythm. GI: She has global obesity. I feel what feels like ventral hernias in her midline. Extremities: S he has significant edema in all 4 extremities. Back: I am unable to examine her back at this point due to her significant obesity and difficulty wi th positioning and lethargy. : She has a PureWick in place. Laboratory Data: Her laboratory exam revealed a white blood cell count of 8.4, down from a hemoglobi n of 10.1 yesterday. White blood cell count was 7.5, hemoglobin as described, her hematocrit was 24. 4, down from 30.4, platelet count was 90. Her coags on 09/10 was the last check, was PT 12.2, INR 1. 07, PTT is 28.3. Her chemistry showed a sodium of 140, potassium 3.3, chloride 97, carbon dioxide is 43, BUN was 16, creatinine 0.5, glucose is 137, her calcium was 8.1. Her last magnesium was 1.6. S he had a positive C diff toxin on 08/31 which said antigen positive, tox negative A. C diff present, but toxin not detected. She had a colonoscopy performed with Dr. Olvera as well as an EGD. The EGD biopsies showed duodenal mucosa with gastric foveolar metaplasia. No evidence of celiac and chronic inactive gastritis. She additionally had an upper endoscopy, which showed gastritis with gastric er osions, acute gastric ulcer, 3 mm clean based ulcer at the antrum. She also had a colonoscopy which showed colonic ulcers, 5 stercoral ulcers in the distal rectal 6 cm, the proximal extent at 10 cm fro m the anal verge, 5 cm with active slow bleeding, deep to dentate line 1.4 cm, 1.2 cm. 1.0 cm ulcers in the distal rectum, diverticulosis without perforation abscess and without bleeding. As the findin gs continued, said examination revealed multiple deep 1 cm x 6 cm ulcers in the distal rectosigmoid a t the depth of 1 cm to 10 cm from the anus, feels red. No visible vessel present. No clots to be fo und. The ulcer is actively bleeding. Multiple medium diverticula present in sigmoid colon without a ctive bleeding. Additional colonoscopy showed on 09/09/2024 showed a large amount of clotted blood i n the rectosigmoid. Examination revealed 5 stercoral ulcers in depth 8 mm x 6 cm. Also in the rectu m also had a blood clot clots present. The ulcer produced a stigmata of bleeding. Injection of 6 mL of epinephrine 1 in 1999 was administered. Examination revealed a single deep 7 mm also in the rect um still site of visible vessel with amount present the distal rectum 1-1 to 2 cm from the dentate li ne. Also had a blood clot or clots present. The ulcer produced stigmata of bleeding. Two resolutio n clips were placed successfully for hemostasis. Injection of 2 mL of epinephrine 1 in 1999 was admi nistered intubation beyond the rectosigmoid colon, not amenable to large amount of blood clot. Intub ation of transverse colon yesterday revealed a blood clot on the rectosigmoid, so decision was made t o treat ulcers had visible vessel and rectum with postop ICU monitoring on 09/10, an additional colon oscopy was performed, which showed multiple medium diverticula present sigmoid colon. No active blee ding. The multiple 5 stercoral ulcers 8 mm x 6 cm ulcer in the rectum. Also, residual blood clot bu t largely mostly large blood clots were largely gone. The ulcer produced a stigmata of bleeding. Ex amination revealed a single 7 mm ulcer deep in the rectum with 2 Endoclips present. No further bleed ing. The ulcer was not bleeding. Multiple small sized uncomplicated internal hemorrhoids were seen in the rectum. Hemorrhoids were not actively bleeding. Assessment And Plan: This is a 64-year-old woman with a history of gastrointestinal bleeding, likely due to multiple stercoral and bleeding ulcers of the rectum and anorectal large intestine who has an evidence of recurrent gastrointestinal bleeding concerning for active arterial bleeding. 1. Transfusion of blood products. 2. I have explained the risks, benefits, and alternatives of exam under anesthesia and control of the se blood vessels including, but not limited to bleeding, infection, damage to the surrounding tissue, need for further operative procedures. The patient displayed understanding of above-stated plan, ag ree to proceed as indicated. I have explained that additional complications can occur including but not limited to blood clots, heart attack, stroke, other unforeseen complication in the perioperative period, prolonged ICU stay and a multitude of additional procedures might be necessary to control the bleeding. The patient agreed to the above-stated procedure. Continue medical management. Thank you for this consult BLUE/CARITO Voice ID: [id number] Report ID: [id number]
[2024-10-01] MEDS: NYSTATIN PWDR 100000 UNIT/GM TOP PRN (15:45)
[2024-10-01 17:02] LABS: Hematocrit 26.7 % (36.0-45.0); Hemoglobin 9.1 g/dL (12.0-15.0)
--- NOTE | 2024-10-01 17:02 | P.PN ---
Date of Service: 10/01/24 Subjective: Continued to have rectal bleeding through the day yesterday overnight, rectal blood clots x2 Sidney took to surgery this morning, ligated bleeding, now in ICU for close monitoring Hgb dropped, and with continued bleeding one unit PRBC was given ROS: 10 point ROS as noted above, otherwise negative Physical exam GEN: AAO x3, NAD CV: Afib, S1-S2 present Pulm: Nonlabored breathing, on 2 L nasal cannula ABD: distended (obese), active bowel sounds, nontender MSK: edema present to BLE Integumentary: Erythema to left lower extremity- improved, PICC line in place, RUE swelling noted-US negative for DVT Neuro: Normal speech, good conversation Vitals reviewed Assessment: Melena Stercoral colonic ulcers in the distal rectum up to 6 cm with active bleeding Chronic Inactive Gastritis Acute blood loss anemia Hyponatremia Hyperkalemia-now with hypokalemia Metabolic acidosis Metabolic encephalopathy secondary to above Left lower extremity cellulitis Chronic diastolic congestive heart failure Chronic hypercapnic/hypoxic respiratory failure Atrial fibrillation on chronic anticoagulation Elevated troponin Sacral wounds Plan: Melena Stercoral colonic ulcers in the distal rectum up to 6 cm with active bleeding Chronic Inactive Gastritis Acute blood loss anemia Hypotension Patient was receiving Eliquis for A-fib. Eliquis discontinued due to rectal bleeding, Stopped since 09/06 Continue Protonix BID Patient completed IV iron supplementation Patient seen by GI Dr. Olvera, colonoscopy done x 3 and reports colonic ulcers, 5 stercoral ulcers in the distal rectum up to 6 cm which showed evidence of bleeding. It also reported small sized uncomplicated internal hemorrhoids. Status post 9 units PRBC transfusion MiraLAX 1 capful 3 times daily to maintain BM 1-2 time daily Currently not actively bleeding She is currently tolerating soft diet Hemoglobin 8.4 with active bleeding Continue PT Echocardiogram shows EF of 30 to 35% Continue to hold Eliquis Dr. Little consulted, took to surgery today 10/01 Hyponatremia-resolved Hyperkalemia-now with hypokalemia Metabolic acidosis-resolved Metabolic encephalopathy secondary to above-resolved Adrenal insufficiency nephrology Following-started on steroids/Decadron at this time Patient takes spironolactone, potassium, acetazolamide at home Decadron being titrated down by nephrology, at discharge will be on Decadron 1mg in AM and 0.5 mg at DC Left lower extremity cellulitis Blood cultures with no growth to date Patient completed antibiotics Chronic diastolic congestive heart failure Cardiology and nephrology consulted/following Stable Patient is off diuretics Monitor for volume overload improved with lasix prn. Wean off oxygen as tolerated Chronic hypercapnic/hypoxic respiratory failure Continue supplemental oxygen Continue wearing home CPap Atrial fibrillation on chronic anticoagulation Eliquis stopped since 09/06 Sotalol discontinued due to profound bradycardia with hypotension. Patient with sinus tachycardia/intermittent A-fib rates 110-120 Started on low-dose metoprolol 12.5 mg twice daily May need further titration Cardiology is following- will folllow up for possible watchman, will hold aspirin until this new bleed has resolved Continuous telemetry Elevated troponin Cardiology Following Elevated troponin deemed secondary to demand ischemia. Sacral wounds Small stage two gluteal wound-continue with daily dressing change with mepilex. Anxiety Xanax as needed. DVT PPX: SCD Code status: Full code Discharge Plan: 24 hours Time Spent Managing Pts Care (In Minutes): 40
--- NOTE | 2024-10-01 19:57 | OP ---
Date of Procedure: 10/01/2024 Surgeon: Karsten Little MD, Preoperative Diagnosis: Rectal bleeding. Postoperative Diagnosis: Rectal bleeding. Procedures Performed: 1. Examination under anesthesia. 2. Ligation of bleeding vessel at 12 o'clock position. 3. Ligation of bleeding linear ulceration. Anesthesia: MAC plus local with 1% lidocaine with epinephrine. Estimated Blood Loss: Less than 30 cc. Specimen: Anal polyps x2. Findings: Bleeding visible vessel at the 12 o'clock position and an obvious ulcerated crater and farooq ear multiple bleeding and nonbleeding linear ulcers. Complications: None. Implants: Avitene powder and Ultrafoam. Disposition: Patient transferred to ICU in serious condition. Procedure In Detail: After informed consent was obtained, patient was brought to the operating room, prepped and draped in the usual sterile fashion after adequate anesthesia had been achieved. I perf ormed an exam under anesthesia by sequentially dilating up the anus using sequentially larger anoscop e until ultimately I could visualize several areas of concern. There was significant amount of stool , bloody stool in the area making visualization difficult for some time. A combination of aggressive irrigation and suction, I was able to clear out the area ultimately to visualize an anal polyp at th e 12 o'clock position with a crater just distal to it near the dentate line. There was a visible ves richard which was spurting arterial type bleeding, at this point. I proceeded to remove the anal polyp u sing the LigaSure device. It was sent off for pathologic examination. At this point, then I proceed ed to take down the linear ulcer from distal to proximal using a 3-0 Vicryl suture running it in and along ultimately culminating in the closure and ligation of the vessel in the linear ulceration using a running 3-0 Vicryl suture. At this point, it was ligated and the area was copiously irrigated. H emostasis was achieved, at this point. I injected the area with epinephrine at this point as well. I then turned my attention to inspect the remainder of the anus. There was another anal polyp at the 3 o'clock position, which also had a linear ulceration adjacent to it. I removed this polyp, which was very small. I sent it off for pathologic examination after ligating it with the LigaSure device. I then proceeded to close this in a similar fashion as there was minimal oozing from this linear ul ceration using the same set 3-0 Vicryl suture. At this point, I inspected the remainder of the anus. There was a nonbleeding linear ulcer from the other side. Palpation and scrubbing of this area wi th irrigation as well as rubbing it with a 4 x 4 Ray-Macy showed no evidence of bleeding. At this poi nt, there appeared to be a granular base at this area without obvious bleeding. As such, I irrigated the area once again. After the area was copiously irrigated, I injected epinephrine once again in a ll 3 of these locations and I saw no additional bleeding, at this point. I then placed some Avitene powder into the anus along with some Gelfoam soaked in lidocaine into the anal canal to allow for add itional hemostasis and a sterile dressing placed over top. The patient tolerated the procedure witho ut incident or complication and transferred to PACU in good condition. All counts were correct at th e end of the case. BLUE/CARITO Voice ID: [id number] Report ID: [id number]
--- NOTE | 2024-10-01 20:12 | OP ---
Date of Procedure: 10/01/2024 Surgeon: Karsten Little MD, Preoperative Diagnosis: Need for IV access as the patient had no significant IV access and was in ne ed of blood and various medications and she only had a 22-gauge which was tenuous at best and intermi ttent. Postoperative Diagnosis: Need for IV access. Procedure Performed: Placement of a right femoral vein triple-lumen central venous catheter using ul trasound guidance and microintroducer 5-Ukrainian set. Anesthesia: Lidocaine 1% without epinephrine. Estimated Blood Loss: 10 cc. Specimen: None. Findings: Dark nonpulsatile blood was returned. Complications: None. Implants: Triple-lumen central venous catheter, right femoral vein. Disposition: Patient also transferred to ICU in serious condition at the end of the procedure. Description Of Procedure: The patient was prepped and draped in the usual sterile fashion. After ad equate anesthesia was achieved with 1% lidocaine. Using ultrasound guidance, I placed a microintrodu cer 5-Ukrainian catheter set needle into the femoral vein. Dark red, nonpulsatile blood was returned. The micro wire was advanced at this point. I removed the needle and performed a nima incision overly ing it. I then placed a microintroducer 5-Ukrainian sheath in this area. Dark red, nonpulsatile blood was returned. At this point, I proceeded to place a standard wire through and removed the microintro ducer sheath using Seldinger technique. Ultimately, the tract was dilated using the Seldinger techni que and attached dilators ultimately placing the catheter into the femoral vein without incident or c omplication. Wire out was called, at this point. I then secured the catheter to the skin with inter rupted silk sutures and all ports theo back dark red, nonpulsatile blood and were flushed until compl etely clear. Sterile saline and sterile dressing were placed over top. The patient tolerated the pr ocedure without incident or complication and remained in the room until the following procedure which was the exam under anesthesia was performed as described in additional operative note. Please see d etails from the same date of service. The patient was ultimately transferred to the ICU in serious c ondition at the end of the procedures. TK/MODL Voice ID: [id number] Report ID: [id number]
[2024-10-02 05:45] LABS: Absolute Lymphocytes (CBC) 1.4 K/uL (0.7-4.9); Hematocrit 25.3 % (36.0-45.0); Hemoglobin 8.8 g/dL (12.0-15.0); MCH 31.5 pg (27.0-35.0); MCHC 34.6 g/dL (32.0-36.0); MCV 91.0 fL (80-100); MPV 8.2 fL (7.6-11.3); Nucleated RBC Absolute Count 0.0 (0-0); Nucleated Red Blood Cells % 0.0 % (0-0); RBC Red Blood Cell Count 2.78 M/uL (3.86-4.86); White Blood Count 7.70 thou/uL (4.3-10.9)
[2024-10-02 06:02] LABS: Anion Gap 2.5 mEq/L (5.0-15.0); BUN Blood Urea Nitrogen 12.0 mg/dL (7-18); Glucose Level 100.0 mg/dL (74-106)
[2024-10-02 06:10] LABS: Potassium 2.5 mEq/L (3.5-5.1)
[2024-10-02] MEDS: KCL 20 MEQ/100 mL IVPB 20 MEQ/100 ML BAG IV SCH (06:48)
[2024-10-02 06:56] LABS: Magnesium 1.4 mg/dL (1.6-2.4)
[2024-10-02] MEDS: Magnesium Sulfate 2gm IVPB 2 G/50 ML BAG IV ONE (08:33)
[2024-10-02 10:20] LABS: Blood Morphology Comment NOT SEEN (NOT SEEN); White Blood Cell Scan OK (OK)
--- NOTE | 2024-10-02 11:43 | P.PN ---
Date of Service: 10/02/24 Subjective: Stable since surgery, H/H 8.8/25.3 Awake on Clear liquid diet, conversing well BP stable, will transfer to the floor and likely dc in the morning ROS: 10 point ROS as noted above, otherwise negative Physical exam GEN: Awake, conversing well, afebrile CV: Afib, S1-S2 present Pulm: Symmetrical chest wall movement, on 2 L NC ABD: distended (obese), soft on palpation MSK: edema present to BLE Integumentary: Erythema to left lower extremity- improved, PICC line in place, RUE swelling noted-US negative for DVT Neuro: Normal speech, good conversation Vitals reviewed Assessment: Melena Stercoral colonic ulcers in the distal rectum up to 6 cm with active bleeding Chronic Inactive Gastritis Acute blood loss anemia Hyponatremia Hyperkalemia-now with hypokalemia Metabolic acidosis Metabolic encephalopathy secondary to above Left lower extremity cellulitis Chronic diastolic congestive heart failure Chronic hypercapnic/hypoxic respiratory failure Atrial fibrillation on chronic anticoagulation Elevated troponin Sacral wounds Plan: Melena Stercoral colonic ulcers in the distal rectum up to 6 cm with active bleeding Chronic Inactive Gastritis Acute blood loss anemia Hypotension Patient was receiving Eliquis for A-fib. Eliquis discontinued due to rectal bleeding, Stopped since 09/06 Continue Protonix BID Patient completed IV iron supplementation Patient seen by GI Dr. Olvera, colonoscopy done x 3 and reports colonic ulcers, 5 stercoral ulcers in the distal rectum up to 6 cm which showed evidence of bleeding. It also reported small sized uncomplicated internal hemorrhoids. Status post 9 units PRBC transfusion total this admission MiraLAX 1 capful 3 times daily to maintain BM 1-2 time daily Currently not actively bleeding She is currently tolerating soft diet Hemoglobin 8.4 with active bleeding Continue PT Echocardiogram shows EF of 30 to 35% Continue to hold Eliquis Dr. Little consulted, surgery 10/01, ligated for bleeding control Hyponatremia-resolved Hyperkalemia-now with hypokalemia Metabolic acidosis-resolved Metabolic encephalopathy secondary to above-resolved Adrenal insufficiency nephrology Following-started on steroids/Decadron at this time Patient takes spironolactone, potassium, acetazolamide at home Decadron being titrated down by nephrology, at discharge will be on Decadron 1mg in AM and 0.5 mg at DC Left lower extremity cellulitis Blood cultures with no growth to date Patient completed antibiotics Chronic diastolic congestive heart failure Cardiology and nephrology consulted/following Stable Patient is off diuretics Monitor for volume overload improved with lasix prn. Wean off oxygen as tolerated Chronic hypercapnic/hypoxic respiratory failure Continue supplemental oxygen Continue wearing home CPap Atrial fibrillation on chronic anticoagulation Eliquis stopped since 09/06 Sotalol discontinued due to profound bradycardia with hypotension. Patient with sinus tachycardia/intermittent A-fib rates 110-120 Started on low-dose metoprolol 12.5 mg twice daily May need further titration Cardiology is following- will folllow up for possible watchman, will hold as pirin until this new bleed has resolved Continuous telemetry Elevated troponin Cardiology Following Elevated troponin deemed secondary to demand ischemia Sacral wounds Continue wound care dressing: Small stage two gluteal wound-continue with daily dressing change with mepilex Anxiety Xanax as needed DVT PPX: SCD Code status: Full code Discharge Plan: 24 hours Time Spent Managing Pts Care (In Minutes): 45
[2024-10-02] MEDS: POTASSIUM CL SA 10 MEQ TAB PO ONE (18:31)
--- NOTE | 2024-10-02 23:03 | PN ---
Date of Progress Note: 10/02/2024 Chief Complaint: Acute kidney injury. Subjective: The patient recovered from active kidney injury. She has stable urine output. Serum cr eatinine is 0.5, BUN 19. There is prerenal azotemia. The patient tolerates p.o. intake. Review of Systems: Denies chest pain, palpitations. Physical Examination: Lungs: Clear to auscultation bilaterally. Heart: S1, S2. Abdomen: Soft, benign. Extremities: Slight edema. Impression And Plan: 1. Acute kidney injury, resolved. Monitor renal function. Avoid nephrotoxic medication. 2. Hyponatremia, resolved. Continue diet as tolerated. 3. Persistent hypokalemia and hypomagnesemia. Monitor electrolytes. Continue supplementation. 4. Melena, status post colonoscopy that showed colonic ulcer. Further recommendation from GI. 5. Heart failure, reduced ejection fraction. The patient was on Lasix. Currently, Lasix is on hold due to hypokalemia. Continue supplementation. NELSY/MODL Voice ID: [id number] Report ID: [id number]
[2024-10-03 04:00] VITALS: O2SAT 100
[2024-10-03 05:16] LABS: Absolute Lymphocytes (CBC) 1.0 K/uL (0.7-4.9); Hematocrit 25.1 % (36.0-45.0); Hemoglobin 8.5 g/dL (12.0-15.0); MCH 30.9 pg (27.0-35.0); MCHC 33.9 g/dL (32.0-36.0); MCV 91.1 fL (80-100); MPV 8.0 fL (7.6-11.3); Nucleated RBC Absolute Count 0.0 (0-0); Nucleated Red Blood Cells % 0.1 % (0-0); RBC Red Blood Cell Count 2.76 M/uL (3.86-4.86); White Blood Count 5.00 thou/uL (4.3-10.9)
[2024-10-03 05:30] LABS: Anion Gap 5.6 mEq/L (5.0-15.0); BUN Blood Urea Nitrogen 11.0 mg/dL (7-18); Glucose Level 162.0 mg/dL (74-106); Magnesium 1.9 mg/dL (1.6-2.4); Potassium 3.6 mEq/L (3.5-5.1)
[2024-10-03] MEDS: POTASSIUM PHOS IN 0.9 % NACL 15 MMOL/250 ML BAG IV ONE (10:00)
--- NOTE | 2024-10-03 11:28 | PN ---
Date of Progress Note: 10/03/2024 Subjective: The patient was admitted with sepsis. The patient had acute kidney injury and adrenal insufficiency. The patient developed hypokalemia. Patient was started on Decadron. Physical Examination: Vital Signs: When I saw the patient, blood pressure 112/62, pulse of 99, afebrile. Chest: Clear to auscultation. Heart: S1, S2. Systolic murmur. Abdomen: Soft, nontender. Extremities: Venous stasis change, bilateral. Laboratory Data: WBC 5, hemoglobin 8.5, sodium 136, potassium 3.6, bicarb 31, BUN 11, creatinine 0.5, calcium 8.2, phosphorus 2.5, magnesium 1.9. Current Medications: The patient on, it includes: 1. Albuterol. 2. Nystatin. 3. Metoprolol 25 b.i.d. 4. Gabapentin. 5. Zofran. 6. Pantoprazole. 7. Magnesium oxide. Assessment And Plan: 1. Acute kidney injury secondary to prerenal, toxic acute tubular necrosis, recovered, resolved. 2. Hypertension. Currently, low blood pressure. The patient had adrenal insufficiency. Was placed on Decadron. Decadron has been discontinued. Currently, midodrine is discontinued also. The patient maintaining acceptable blood pressure. We will follow up. 3. Hypokalemia. The patient off steroid. Low magnesium, we will supplement magnesium. I will repeat TSH. We will send for urine electrolyte, and we will follow up. We will consider spironolactone, if needed. 4. Cellulitis, status post treatment. 5. Hypomagnesemia. We will supplement. Time spent examining the patient [id number] reviewing data lab and the radiology placing order placing documentation discussing the case with the nursing staff hospitalist more than 55 minutes MALLIKA Voice ID: [id number] Report ID: [id number]
[2024-10-03] MEDS: MAGNESIUM SULFATE 1 gm IVPB 1 GM/100 ML BAG IV ONE (12:00)
[2024-10-03 12:16] LABS: Hematocrit 25.2 % (36.0-45.0); Hemoglobin 8.4 g/dL (12.0-15.0)
[2024-10-03 14:49] VITALS: TEMP 97.9
[2024-10-03] MEDS: KCL 20 MEQ/100 mL IVPB 100 ML IV SCH (15:00)
[2024-10-03 17:31] VITALS: BP 134/66
== END 2024-10-03 17:42 | DRG 871 ==
LOC: ER 11:47 → ERHOLD 18:45 → 3RD-ICU 20:09 → 2ND 08-31 16:44 → 3RD-ICU 09-09 16:03 → 4TH 09-17 16:31 → 3RD-ICU 10-01 14:37 → 2ND 10-02 14:25
PROVIDERS: ADMIT Hospitalist; ATTEND Hospitalist
PROC: 0DB78ZX Excision of Stomach, Pylorus, Via Natural or Artificial Opening Endoscopic, Diagnostic (ICD-10-PCS; 2024-08-28)
PROC: 0DB68ZX Excision of Stomach, Via Natural or Artificial Opening Endoscopic, Diagnostic (ICD-10-PCS; principal; 2024-08-28 09:30)
PROC: 0W3P8ZZ Control Bleeding in Gastrointestinal Tract, Via Natural or Artificial Opening Endoscopic (ICD-10-PCS; 2024-09-10)
DX: A41.9 Sepsis, unspecified organism (principal); G93.41 Metabolic encephalopathy; E66.2 Morbid (severe) obesity with alveolar hypoventilation; Z68.42 Body mass index [BMI] 45.0-49.9, adult; N17.9 Acute kidney failure, unspecified; E87.1 Hypo-osmolality and hyponatremia; I50.32 Chronic diastolic (congestive) heart failure; E87.20 Acidosis, unspecified; L03.116 Cellulitis of left lower limb; J96.12 Chronic respiratory failure with hypercapnia; J96.11 Chronic respiratory failure with hypoxia; I24.89 Other forms of acute ischemic heart disease; K62.6 Ulcer of anus and rectum; K25.3 Acute gastric ulcer without hemorrhage or perforation; R65.20 Severe sepsis without septic shock; I11.0 Hypertensive heart disease with heart failure; E87.5 Hyperkalemia; K64.8 Other hemorrhoids; K57.30 Diverticulosis of large intestine without perforation or abscess without bleeding; I48.91 Unspecified atrial fibrillation; E78.5 Hyperlipidemia, unspecified; K29.30 Chronic superficial gastritis without bleeding; E11.9 Type 2 diabetes mellitus without complications; J44.9 Chronic obstructive pulmonary disease, unspecified; K25.9 Gastric ulcer, unspecified as acute or chronic, without hemorrhage or perforation; R33.9 Retention of urine, unspecified; R29.6 Repeated falls; Z91.81 History of falling; Z79.01 Long term (current) use of anticoagulants; Z79.899 Other long term (current) drug therapy; W18.39XA Other fall on same level, initial encounter; Y93.89 Activity, other specified; Y92.009 Unspecified place in unspecified non-institutional (private) residence as the place of occurrence of the external cause; Y99.9 Unspecified external cause status
CPT/HCPCS: 36415; 36430; 36569; 36600; 51702; 70450; 71045; 71250; 72125; 74176; 80048; 80053; 80069; 80076; 80202; 81001; 82533; 82550; 82570; 82728; 82803; 82805; 82947; 83540; 83605; 83690; 83735; 83880; 83930; 83935; 84100; 84132; 84156; 84300; 84443; 84466; 84484; 84550; 85014; 85018; 85025; 85027; 85610; 85730; 86850; 86900; 86901; 86920; 87040; 87045; 87046; 87077; 87086; 87088; 87186; 87324; 88305; 88312; 89055; 93005; 93306; 93970; 93971; 94640; 94660; 94760; 96365; 96375; 97110; 97161; 97530; 99285; J0171; J0612; J0692; J1100; J1200; J1630; J1815; J1938; J2003; J2270; J2371; J2405; J2470; J2543; J2704; J2765; J2916; J2919; J3010; J3370; J3475; J3480; J7030; J7040; J7050; J7060; J7120; J7613; J7626; J7644; J8540; P9016; P9045; P9047